=== PATIENT | male | born 1955 | race Caucasian/White ===

== ENCOUNTER → 2017-04-24 15:51 | Outpatient (CLI) | payer MEDICAID, SELFPAY ==
--- NOTE | 2017-04-24 15:58 | RAD_ITS ---
STUDY: X-RAY - RIGHT SHOULDER REASON FOR EXAM: Right shoulder pain for 2 years. TECHNIQUE: 4 view(s) of the shoulder. COMPARISON: None. FINDINGS: Normal glenohumeral articulation. There is acromioclavicular arthrosis. Normal acromion. Normal humeral head and visualized proximal humerus. The soft tissue structures are unremarkable. There is a small granuloma in the right mid lung. RAD/Shoulder min 2 Views IMPRESSION: Acromioclavicular arthrosis. Electronically Signed: London Landeros MD at 12:54 EDT Tel , Service support ,
== END ==
PROVIDERS: Family Provider Family Medicine; PCP Family Medicine; Visit Provider Family Medicine
DX: M75.81 Other shoulder lesions, right shoulder (principal)
CPT/HCPCS: 73030

== ENCOUNTER 2017-05-07 11:50 | Emergency (ER) | payer MEDICAID, SELFPAY ==
[2017-05-07 11:51] VITALS: BP 118/44; PULSE 92; RESP 20; TEMP 36.5; O2SAT 97; BMI 18.6
--- NOTE | 2017-05-07 12:10 | RAD_ITS ---
STUDY: X-RAY CHEST REASON FOR EXAM: Male, 61 years old. Chest pain TECHNIQUE: Single AP portable view of the chest. COMPARISON: None. FINDINGS: The lungs are hyperexpanded. There is a right upper lobe calcified granuloma. There are minimally prominent interstitial markings of the lower lobes. There is no demonstrated pleural abnormality. Normal size heart. Normal mediastinum and ramila. Normal visualized pulmonary arteries. There is atherosclerotic calcification of the aortic arch with tortuosity. Normal visualized thoracic spine. Normal visualized ribs, clavicles, and shoulders. There is no demonstrated abnormality of the visualized soft tissue structures of the upper abdomen. RAD/Chest 1 View (Portable) IMPRESSION: The lungs are hyperexpanded. Electronically Signed: Rae Keita MD at 13:14 EDT , Service support ,
--- NOTE | 2017-05-07 12:10 | EKG12_ITS ---
Test Reason : CP Blood Pressure : / mmHG Vent. Rate : 074 BPM Atrial Rate : 074 BPM P-R Int : 092 ms QRS Dur : 106 ms QT Int : 372 ms P-R-T Axes : 064 078 080 degrees QTc Int : 412 ms Sinus rhythm with short PA Nonspecific T wave abnormality Abnormal ECG Confirmed by RYAN WRAY, NIKO ([id number]), legal editor LINO PRATT ([id number] on 05/09/2017 2:58:18 PM Referred By: BENIGNO Confirmed By:NIKO DAVIS MD
[2017-05-07 12:40] LABS: Absolute Lymphocyte Count 1.25 X10^3/ul (0.83-4.51); Absolute Neutrophil Count 11.1 X10^3/uL (2.0-7.7); Basophil# 0.01 X10^3/uL; Basophil% 0.1 % (0-1); Eosinophil# 0.04 X10^3/uL; Eosinophils% 0.3 % (0-5); Hematocrit 40.5 % (40-54); Hemoglobin 13.8 g/dl (13.0-16.5); Lymphocyte # 1.25 X10^3/ul (4.0); Lymphocyte % 9.8 % (19-41); Mean Corp Hgb Conc 34.1 g/gl (32-36); Mean Corpuscular Hgb 31.4 pg (27.0-32.0); Mean Platelet Vol. 9.5 fl (6.2-12.0); Monocyte# 0.41 X10^3/uL; Monocyte% 3.2 % (0-10); Neutrophil # 11.06 X10^3/uL (2.7-7.7); Neutrophil % 86.2 % (47-70); Platelet Count 278 K/mm3 (150-450); RBC Distribution Width CV 14.7 % (11.6-14.6); RBC Distribution Width SD 47.9 fl (35.1-43.9); White Blood Count 12.8 K/mm3 (4.4-11.0)
[2017-05-07 12:42] LABS: POSITIVE COUNT NO; POSITIVE DIFFERENTIAL NO; POSITIVE MORPHOLOGY NO
[2017-05-07] MEDS: Aspirin 81 MG TAB.CHEW 324 MG PO (12:48)
[2017-05-07 12:49] VITALS: BP 148/95; PULSE 79; RESP 14; O2SAT 98
[2017-05-07] MEDS: LORazepam 1 MG Tablet PO (12:49)
[2017-05-07 12:58] LABS: Anion Gap 6 (5-15); BUN 28 mg/dL (7-18); BUN/Creat Ratio 26.4 RATIO (10-20); Calcium,Total 8.6 mg/dL (8.5-10.1); Chloride 108 mmol/L (98-107); Creatinine, Serum 1.06 mg/dL (0.70-1.30); EST Glomerular Filtration Rate 75 mL/min (>60); Est Glom Filt Rate - Afr Amer 91 mL/min (>60); Estimated Creatinine Clearance 59.49 ml/min; Glucose 116 mg/dL (74-106); Potassium 4.2 mmol/L (3.5-5.1); Sodium Level 137 mmol/L (136-145)
--- NOTE | 2017-05-07 13:39 | ED.VISSUMM ---
- ER Visit Summary Date of Service: 05/07/17 Chief Complaint: Anxiety, chest pain History of Present Illness: The patient is a 61 M presenting with anxiety. Patient states he has been overwhelmed and under a lot of stress. He states he is getting ready to move. He states he is working 6 days per week. He states he is currently on steroids and is finishing up a course of steroids today. This has caused him to be unable to sleep more than 4 hours per night. He denies suicidal ideation. He states that this morning he started having mid chest pain which has been constant for the past 4 hours. He is a smoker. Denies PE/DVT risk factors. Physical Examination: Vitals are stable. Patient is afebrile. Alert no acute distress. HEENT exam is unremarkable. Neck is supple. Lungs are clear and equal bilaterally. Heart is regular rate and rhythm. Abdomen is soft nontender nondistended. Extremities are unremarkable. Skin is warm and dry. No focal neurologic deficit. Remainder of exam is unremarkable. Emergency Department Course and Treatment: Patient was given aspirin. EKG is sinus rate of 74. No acute ischemic changes. Chest x-ray shows hyperexpanded lungs. CBC showed a white count of 12.8. Chemistries show glucose 116, BUN 28. Troponin is negative. He was given Ativan po with improvement. delta troponin was obtained and is negative. Patient is resting comfortably in the emergency department. He has had no further pain. He is advised to follow-up with Dr. Bynum his primary care physician. Advised return to ED if worsening complaints. Disposition: Discharge home Impression: Atypical chest pain This note was generated with [employer] dictation software. It may contain incorrect words, spelling, and punctuation that were not noted in review of the chart prior to signing ED Disposition - Plan for ED Patient: Chief Complaint: Anxiety Instructions: ED Chest Pain Atypical Unkn Cause Referrals: Counseling,Center [GROUP OF PHYSICIANS] - Naif Rojas MD [Primary Care Provider] -
[2017-05-07 14:10] VITALS: BP 151/89; PULSE 71; RESP 17; O2SAT 99
[2017-05-07 16:11] VITALS: BP 134/95; PULSE 70; RESP 18; O2SAT 98
--- NOTE | 2017-05-07 16:43 | ED.DEP ---
ED Disposition - Plan for ED Patient: Chief Complaint: Anxiety Instructions: ED Chest Pain Atypical Unkn Cause Referrals: Naif Rojas MD [Primary Care Provider] - [facility]ing[facility] [GROUP OF PHYSICIANS] -
[2017-05-07 17:16] VITALS: BP 152/73; PULSE 68; RESP 19; O2SAT 98
== END 2017-05-07 17:17 | disposition home or self-care (01) ==
PROVIDERS: Emergency Provider Emergency Medicine; Family Provider Family Medicine; PCP Family Medicine
DX: R07.89 Other chest pain (principal); F32.9 Major depressive disorder, single episode, unspecified; F17.200 Nicotine dependence, unspecified, uncomplicated
CPT/HCPCS: 36415; 71045; 80048; 84484; 85025; 93005; 99284; A4216

== ENCOUNTER → 2017-08-20 13:17 | Outpatient (CLI) | payer MEDICAID, SELFPAY ==
[2017-08-20 15:30] LABS: Absolute Lymphocyte Count 3.04 X10^3/ul (0.83-4.51); Absolute Neutrophil Count 4.1 X10^3/uL (2.0-7.7); Basophil# 0.02 X10^3/uL; Basophil% 0.3 % (0-1); Eosinophil# 0.17 X10^3/uL; Eosinophils% 2.2 % (0-5); Hematocrit 40.6 % (40-54); Hemoglobin 13.5 g/dl (13.0-16.5); Lymphocyte # 3.04 X10^3/ul (4.0); Lymphocyte % 38.7 % (19-41); Mean Corp Hgb Conc 33.3 g/gl (32-36); Mean Corpuscular Hgb 30.7 pg (27.0-32.0); Mean Corpuscular Volume 92.3 fL (80-94); Mean Platelet Vol. 10.2 fl (6.2-12.0); Monocyte# 0.55 X10^3/uL; Neutrophil # 4.07 X10^3/uL (2.7-7.7); Neutrophil % 51.7 % (47-70); Platelet Count 302 K/mm3 (150-450); RBC Distribution Width CV 13.8 % (11.6-14.6); RBC Distribution Width SD 46.8 fl (35.1-43.9); White Blood Count 7.9 K/mm3 (4.4-11.0)
[2017-08-20 15:40] LABS: POSITIVE COUNT NO; POSITIVE DIFFERENTIAL NO; POSITIVE MORPHOLOGY NO
[2017-08-20 15:50] LABS: ALB/GLOB Ratio 1.3 RATIO (0.9-2.4); AST(SGOT) 23 U/L (15-37); Alanine Aminotransfer ALT/SGPT 25 U/L (16-61); Albumin, Serum 4.2 g/dL (3.2-5.0); Alkaline Phosphatase 61 U/L (45-117); Anion Gap 9 (5-15); BUN 20 mg/dL (7-18); BUN/Creat Ratio 16.3 RATIO (10-20); Calcium,Total 9.1 mg/dL (8.5-10.1); Chloride 106 mmol/L (98-107); Creatinine, Serum 1.23 mg/dL (0.70-1.30); EST Glomerular Filtration Rate 63 mL/min (>60); Est Glom Filt Rate - Afr Amer 76 mL/min (>60); Globulin 3.3 g/dL (2.2-4.2); Glucose 83 mg/dL (74-106); PSA,Total - Annual Screen 1.06 ng/mL (0.00-4.00); Protein, Total 7.5 g/dL (6.4-8.2); Sodium Level 139 mmol/L (136-145); T4 Free Direct 1.44 ng/dL (0.76-1.46); Thyroid Stim Hormone (TSH) 2.12 uIU/mL (0.358-3.74)
[2017-08-23 12:08] LABS: HCV Quant. RNA PCR HCV Not Detected IU/mL (.)
== END ==
PROVIDERS: Visit Provider Family Medicine
DX: R63.4 Abnormal weight loss (principal); B18.2 Chronic viral hepatitis C
CPT/HCPCS: 36415; 80053; 84153; 84439; 84443; 85025; 87522; G0103

== ENCOUNTER → 2017-08-22 13:54 | Outpatient (CLI) | payer MEDICAID, SELFPAY ==
--- NOTE | 2017-08-24 19:17 | LEAS_ITS ---
Arterial Study - Arterial Study Arterial Study: This is a 61-year-old male with a history of smoking. The patient presents with right lower extremity ambulatory pain at a distance of 2 blocks, which is relieved by rest. Suspecting the presence of atherosclerotic peripheral arterial occlusive disease, the patient was brought to the noninvasive vascular laboratory at this time for the purpose of bilateral noninvasive lower extremity arterial assessment. Doppler signal assessment was used to evaluate the pulses at ankle level bilaterally. On the right, the posterior tibial and dorsalis pedis pulses were monophasic. On the left, the posterior tibial and dorsalis pedis pulses were biphasic. Segmental limb pressures were obtained bilaterally. The right low thigh pressure was measured at 125 mmHg. The right calf pressure was measured at 125 mmHg. The right ankle pressure, as determined by posterior tibial pulse, was measured at 105 mmHg. The right ankle pressure, as determined by dorsalis pedis pulse, was measured at 104 mmHg. The left low thigh pressure was measured at 154 mmHg. The left calf pressure was measured at 155 mmHg. The left ankle pressure, as determined by posterior tibial pulse, was measured at 140 mmHg. The left ankle pressure, as determined by dorsalis pedis pulse, was measured at 127 mmHg. Pulse-volume recordings were obtained bilaterally and segmentally. Waveform amplitudes appeared to be mildly diminished at all levels in the right lower extremity as compared to the the left. Resting ankle-brachial indices were calculated bilaterally. The resting right ankle-brachial index was calculated to be 0.77. The resting left ankle- brachial index was calculated to be 1.02. Impression: Based upon the findings of this resting noninvasive lower extremity arterial study, there is evidence of mild to moderate arterial occlusive disease in the right lower extremity. Factors which substantiate this impression include monophasic waveforms at ankle level in the right lower extremity. Waveforms at ankle level in the left lower extremity are biphasic. Arterial pressures are diminished at all levels in the right lower extremity as compared to those at similar levels on the left. The resting right ankle- brachial index is low normal. The resting left ankle-brachial index is normal. The presence of monophasic waveforms at ankle level in the right lower extremity is suggestive of an element of arterial occlusive disease. While the resting right ankle-brachial index and segmental pressures are rather unremarkable, in comparison to similar levels in the left lower extremity, they are mildly diminished. It is this finding that suggests the presence of mild to moderate arterial occlusive disease in the right lower extremity. An exercise component to this study might further unmask the presence of an arterial occlusive process in the right lower extremity. Clinical correlation is advised.
== END ==
PROVIDERS: Family Provider Family Medicine; PCP Family Medicine; Visit Provider Family Medicine
DX: I73.9 Peripheral vascular disease, unspecified (principal)
CPT/HCPCS: 93923

== ENCOUNTER → 2017-09-25 08:30 | Outpatient (CLI) | payer MEDICAID, SELFPAY ==
[2017-09-25 09:58] LABS: Cholesterol 118 mg/dL (200); High Density Lipoprotein 51 mg/dL; Triglycerides 61 mg/dL; Very Low Density Lipoprotein 12 mg/dL (5-40)
== END ==
PROVIDERS: Family Provider Family Medicine; PCP Family Medicine; Visit Provider Surgery
DX: I77.1 Stricture of artery (principal)
CPT/HCPCS: 36415; 80061

== ENCOUNTER → 2017-10-01 14:03 | Outpatient (CLI) | payer MEDICAID, SELFPAY | PROVIDERS: Family Provider Family Medicine; PCP Family Medicine; Visit Provider Family Medicine | DX: R63.4 Abnormal weight loss (principal); Z87.891 Personal history of nicotine dependence | CPT/HCPCS: 71046 ==

== ENCOUNTER → 2017-10-02 12:50 | Outpatient (CLI) | payer MEDICAID, SELFPAY | PROVIDERS: Family Provider Family Medicine; PCP Family Medicine; Visit Provider Surgery | DX: R09.89 Other specified symptoms and signs involving the circulatory and respiratory systems (principal) | CPT/HCPCS: 93880 ==

== ENCOUNTER 2017-10-10 09:23 | Day surgery (SDC) | payer MEDICAID, SELFPAY ==
[2017-10-08 11:45] VITALS: BMI 17.2
[2017-10-10 09:39] LABS: Hematocrit 39.5 % (40-54); Hemoglobin 13.5 g/dl (13.0-16.5); Mean Corp Hgb Conc 34.2 g/gl (32-36); Mean Corpuscular Hgb 31.8 pg (27.0-32.0); Mean Corpuscular Volume 93.2 fL (80-94); Mean Platelet Vol. 9.4 fl (6.2-12.0); Platelet Count 305 K/mm3 (150-450); RBC Distribution Width CV 14.3 % (11.6-14.6); RBC Distribution Width SD 47.2 fl (35.1-43.9); Red Blood Count 4.24 M/mm3 (4.6-6.2); White Blood Count 11.9 K/mm3 (4.4-11.0)
[2017-10-10 09:40] LABS: Scan Indicated on CBC? Y/N NO
[2017-10-10 09:52] LABS: Anion Gap 9 (5-15); BUN 23 mg/dL (7-18); BUN/Creat Ratio 16.1 RATIO (10-20); Calcium,Total 8.9 mg/dL (8.5-10.1); Chloride 109 mmol/L (98-107); Creatinine, Serum 1.43 mg/dL (0.70-1.30); EST Glomerular Filtration Rate 53 mL/min (>60); Est Glom Filt Rate - Afr Amer 64 mL/min (>60); Estimated Creatinine Clearance 40.71 ml/min; Glucose 113 mg/dL (74-106); Potassium 4.2 mmol/L (3.5-5.1); Sodium Level 141 mmol/L (136-145)
[2017-10-10 12:26] LABS: ACT Activated Clotting Time 142 sec (74-137)
[2017-10-10 12:26] LABS: ACT Activated Clotting Time 230 sec (74-137)
--- NOTE | 2017-10-10 12:44 | PCM.OPRPT ---
Problem List (1) PAD (peripheral artery disease) Status: Acute Report of Operation Date of Procedure: 10/10/17 Pre-Operative Diagnosis: Severe right lower extremity vascular claudication Post-Operative Diagnosis: Bilateral common iliac and right common femoral significant arterial occlusive disease Surgery/Procedure Performed:: Abdominal pelvic bilateral thigh arteriogram with left 9 x 29 mm Laverne stenting lot #[id number] and right common iliac 9 x 39 mm Laverne stenting lot #[id number]. Minx device left, Perclose device ?2 right Description of Surgical Findings:: Timeout and informed consent was obtained. 61-year-old gent was taken to the special procedures lab. Was placed on the table. Bilateral groins were sterilely prepped and draped. 50 mcg of fentanyl and 2 mg Versed was given intravenous sedation. Initially ultrasound was used to identify the left common femoral artery. 2% lidocaine was instilled under ultrasound guidance. Micropuncture needle inserted. Yo puncture wire inserted. Micropuncture sheath inserted. 035 J-wire inserted. 5 [place] short sheath inserted. Using an angled Glidewire and 5 [place] universal Flush catheter to flush catheter placed in the abdominal aorta at the level of the renals. Using Isovue contrast the rate of 10 cc a second for 15 cc an AP aortogram was obtained. The catheter was withdrawn to the aortic bifurcation and bilateral films were obtained down to the mid thigh level. Having achieved that there was clinically significant disease with irregular disease of vulva the left proximal common iliac high-grade irregular calcific stenosis of the right common iliac and high-grade irregular stenosis of the right common femoral proximal superficial femoral Under ultrasound guidance access was now gained to the right common femoral artery proximal to the extensively irregular calcific disease present. Micropuncture needle inserted micropuncture wire inserted 6 [place] short sheath catheter was inserted. Using a Glidewire I was able to gain access past the area of high-grade disease in the right proximal common iliac. I prior to this exchanged out placed a 7 [place] sheath of the right we exchanged on the left for a 7 Nigerien sheath. The patient received 6000 units of heparin and based upon ACT measurements later on received another 1000 units of heparin intravenously. Initially I attempted to place a 9 x 29 mm Laverne stent on the right. It would not advance and upon withdrawing we dropped the stent into the right external iliac. Utilizing a 4 [place] snare I was able to snare the stent and partially remove the sheath and retrieve the stent and reinsert the 7 [place] sheath. I then was able to place a 6 x 20 mm conquest balloon and perform balloon angioplasty of the severely diseased right proximal common iliac. And so doing I now had an 035 Magic wire up on the right. I had an 035 angled Glidewire on the left. I then placed a 9 mm x 39 mm Laverne stent on the right and a 9 mm x 29 mm Laverne stent on the left. A kissing balloon angioplasty stenting was performed. There is irregular disease in the proximal left common iliac I felt more comfortable providing support there with a stent allowing for the stent to re-create the aortic bifurcation. The stent on the right as it inflated pulled proximally by 2 mm. [place] that that was adequate position. Both balloons were pulled up to 10 destiny of pressure. Retrograde injection done from the left groin now demonstrated dramatic improvement in flow particularly on the right. This point I felt that the further disease involving the right common femoral/proximal superficial femoral to be best treated an open procedure. I inserted a minx device on the left. Sheath was inserted good backflow was obtained the minx device was then deployed by inflating the balloon withdrawing getting good seating and going through the 1 2 and 3 steps with 2 minutes of rest. Good hemostasis was achieved and hemostasis was further achieved with gentle pressure. Because of the proximal stick on the right due to the calcific disease I elected to Perclose the right. I placed a single Perclose but it seemed like there was still some oozing and so I had done that leaving the wire in place I then placed a second Perclose at a slight 30? angle from the first 1. Both Perclose sutures were then secured with excellent result in complete hemostasis. The patient tolerated procedure well he was taken to recovery area in sagittal condition there was excellent femoral pulses bilaterally excellent popliteal pulses bilaterally. Images demonstrate that the patient has patent bilateral renal arteries mild diffuse calcific disease of the abdominal aorta there is high-grade 95% stenosis of the proximal right common iliac with a much more mild amount of irregular calcific disease involving the left proximal common iliac. There is diffuse disease involving bilateral external iliacs though they are patent. The hypogastric chart patent. There is severe irregular 4 cm long occlusive disease involving the right common femoral artery/proximal superficial femoral artery. The left side appears to be more patent. Impression Successfully treated bilateral common iliac disease with high-grade stenosis on the right. Successfully deployed Laverne stents. Good iliofemoral inflow now. I anticipate future open right common femoral/proximal superficial femoral endarterectomy with patch angioplasty. Contrast used 70 cc Kevin Long M.D., F.A.C.S. Type of Anesthesia:: IV Sedation
--- NOTE | 2017-10-10 12:52 | OP.PCM_ITS ---
Problem List (1) PAD (peripheral artery disease) Status: Acute Report of Operation Date of Procedure: 10/10/17 Pre-Operative Diagnosis: Severe right lower extremity vascular claudication Post-Operative Diagnosis: Bilateral common iliac and right common femoral significant arterial occlusive disease Surgery/Procedure Performed:: Abdominal pelvic bilateral thigh arteriogram with left 9 x 29 mm Laverne stenting lot #[id number] and right common iliac 9 x 39 mm Laverne stenting lot #[id number]. Minx device left, Perclose device ?2 right Description of Surgical Findings:: Timeout and informed consent was obtained. 61-year-old gent was taken to the special procedures lab. Was placed on the table. Bilateral groins were sterilely prepped and draped. 50 mcg of fentanyl and 2 mg Versed was given intravenous sedation. Initially ultrasound was used to identify the left common femoral artery. 2% lidocaine was instilled under ultrasound guidance. Micropuncture needle inserted. Yo puncture wire inserted. Micropuncture sheath inserted. 035 J-wire inserted. 5 Citizen [place] short sheath inserted. Using an angled Glidewire and 5 [place] universal Flush catheter to flush catheter placed in the abdominal aorta at the level of the renals. Using Isovue contrast the rate of 10 cc a second for 15 cc an AP aortogram was obtained. The catheter was withdrawn to the aortic bifurcation and bilateral films were obtained down to the mid thigh level. Having achieved that there was clinically significant disease with irregular disease of vulva the left proximal common iliac high-grade irregular calcific stenosis of the right common iliac and high-grade irregular stenosis of the right common femoral proximal superficial femoral Under ultrasound guidance access was now gained to the right common femoral artery proximal to the extensively irregular calcific disease present. Micropuncture needle inserted micropuncture wire inserted 6 [place] short sheath catheter was inserted. Using a Glidewire I was able to gain access past the area of high-grade disease in the right proximal common iliac. I prior to this exchanged out placed a 7 [place] sheath of the right we exchanged on the left for a 7 [place] sheath. The patient received 6000 units of heparin and based upon ACT measurements later on received another 1000 units of heparin intravenously. Initially I attempted to place a 9 x 29 mm Laverne stent on the right. It would not advance and upon withdrawing we dropped the stent into the right external iliac. Utilizing a 4 [place] snare I was able to snare the stent and partially remove the sheath and retrieve the stent and reinsert the 7 [place] sheath. I then was able to place a 6 x 20 mm conquest balloon and perform balloon angioplasty of the severely diseased right proximal common iliac. And so doing I now had an 035 Magic wire up on the right. I had an 035 angled Glidewire on the left. I then placed a 9 mm x 39 mm Laverne stent on the right and a 9 mm x 29 mm Laverne stent on the left. A kissing balloon angioplasty stenting was performed. There is irregular disease in the proximal left common iliac I felt more comfortable providing support there with a stent allowing for the stent to re-create the aortic bifurcation. The stent on the right as it inflated pulled proximally by 2 mm. [place] that that was adequate position. Both balloons were pulled up to 10 destiny of pressure. Retrograde injection done from the left groin now demonstrated dramatic improvement in flow particularly on the right. This point I felt that the further disease involving the right common femoral/proximal superficial femoral to be best treated an open procedure. I inserted a minx device on the left. Sheath was inserted good backflow was obtained the minx device was then deployed by inflating the balloon withdrawing getting good seating and going through the 1 2 and 3 steps with 2 minutes of rest. Good hemostasis was achieved and hemostasis was further achieved with gentle pressure. Because of the proximal stick on the right due to the calcific disease I elected to Perclose the right. I placed a single Perclose but it seemed like there was still some oozing and so I had done that leaving the wire in place I then placed a second Perclose at a slight 30? angle from the first 1. Both Perclose sutures were then secured with excellent result in complete hemostasis. The patient tolerated procedure well he was taken to recovery area in sagittal condition there was excellent femoral pulses bilaterally excellent popliteal pulses bilaterally. Images demonstrate that the patient has patent bilateral renal arteries mild diffuse calcific disease of the abdominal aorta there is high-grade 95% stenosis of the proximal right common iliac with a much more mild amount of irregular calcific disease involving the left proximal common iliac. There is diffuse disease involving bilateral external iliacs though they are patent. The hypogastric chart patent. There is severe irregular 4 cm long occlusive disease involving the right common femoral artery/proximal superficial femoral artery. The left side appears to be more patent. Impression Successfully treated bilateral common iliac disease with high-grade stenosis on the right. Successfully deployed Laverne stents. Good iliofemoral inflow now. I anticipate future open right common femoral/proximal superficial femoral endarterectomy with patch angioplasty. Contrast used 70 cc Kevin Long M.D., F.A.C.S. Type of Anesthesia:: IV Sedation
[2017-10-10 15:41] VITALS: BP 109/67; PULSE 70; RESP 16; TEMP 36.5; O2SAT 97
[2017-10-10 16:40] VITALS: BP 137/73; PULSE 70; RESP 16; O2SAT 97
[2017-10-10 17:30] VITALS: BP 131/69; PULSE 71; RESP 16; TEMP 36.7; O2SAT 97
--- NOTE | 2017-10-10 17:57 | NURSING ---
bed rest complete, walked patient in hallway, both groin sites intact, tolerated well
--- NOTE | 2017-10-10 18:10 | NURSING ---
called dr. larson to confirm pt ambulated without events. dressings to groin CDI. pt voided. VSS, dr. larson gave okay for DC>
== END 2017-10-10 18:12 | disposition home or self-care (01) ==
LOC: CLSP 09:29 → PCU 15:37
PROVIDERS: Family Provider Family Medicine; PCP Family Medicine; Visit Provider Surgery
DX: I70.298 Other atherosclerosis of native arteries of extremities, other extremity (principal); I73.9 Peripheral vascular disease, unspecified; R09.89 Other specified symptoms and signs involving the circulatory and respiratory systems; C44.91 Basal cell carcinoma of skin, unspecified; K21.9 Gastro-esophageal reflux disease without esophagitis; F32.9 Major depressive disorder, single episode, unspecified
CPT/HCPCS: 36200; 36245; 36415; 37221; 75625; 75710; 76937; 80048; 85027; 85347; 99152; 99153; C1760; C1773; C1876; J7030; J7040; Q9967; C1725; C1769; C1894

== ENCOUNTER → 2017-10-17 14:58 | Outpatient (CLI) | payer MEDICAID, SELFPAY ==
[2017-10-17 15:26] LABS: CREATININE FINGERSTICK 1.4 mg/dL (0.70-1.30)
== END ==
PROVIDERS: Family Provider Family Medicine; PCP Family Medicine; Visit Provider Family Medicine
DX: Z01.812 Encounter for preprocedural laboratory examination (principal); R22.1 Localized swelling, mass and lump, neck
CPT/HCPCS: 70491; Q9967

== ENCOUNTER → 2017-10-23 15:35 | Outpatient (CLI) | payer MEDICAID, SELFPAY ==
--- NOTE | 2017-10-23 | LES_PTH ---
PATIENT: LEIGH WALTERS LOC: [facility] U#:[id number] AGE/SX: 69/M ROOM: RE10/23/[address]: Dr. Kevin Long MD : [id number] BED: DIS: SPEC #: [id number] RECD: 10/24/17 14:38 STATUS: OSMAN FILI #: [id number] RACHEL: 10/23/17 00:[address]: Kevin Long DEPT: SURGICAL PATHOLOGY RECD BY: Gustavo Yarbrough ENTERED: 10/24/17 14:38 SP TYPE: Lesion OTHR DR: Dr. Naif Rojas MD Tissues: Skin of upper extremity and shoulder Procedures: Surgery Specimen Level IV HEADER OPERATION: Excision BCCA right shoulder PRE-OP DIAGNOSIS: BCCA right shoulder TISSUE SUBMITTED: Right shoulder tissue, suture moses inferior aspect of ellipse MICROSCOPIC DIAGNOSIS Right arm lesion, excisional biopsy: Basal cell carcinoma, completely excised. SJ:kristal 10/25/17 MICROSCOPIC DESCRIPTION Slides are reviewed. GROSS DESCRIPTION Received in fixative is one container labeled with the patient's name and designated right arm lesion. The specimen consists of a stanley-white skin ellipse measuring 3.5 x 1.1 cm and up to 0.2 cm in thickness. The specimen is oriented by a suture identifying inferior tip. The inferior tip is assigned the 6 o?clock position. The specimen is inked as follows: superior tip ? yellow, inferior tip ? green, lateral margin 3 o?clock ? black and opposite lateral margin 9 o?clock ? blue. The specimen is serially sectioned and submitted entirely in three cassettes as follows: 1 ? superior and inferior tips, 2 ? superior half of the specimen, 3 ? inferior half of the specimen. / SATURNINO:kristal 10/24/17 TC:0 CPT: 17509
== END ==
PROVIDERS: Family Provider Family Medicine; PCP Family Medicine; Visit Provider Surgery
DX: C44.612 Basal cell carcinoma of skin of right upper limb, including shoulder (principal)
CPT/HCPCS: 88305

== ENCOUNTER 2017-12-18 09:22 | Inpatient (IN) | payer MEDICAID, SELFPAY ==
[2017-12-16 10:10] VITALS: BP 132/82; PULSE 73; RESP 16; TEMP 36.8; O2SAT 97; BMI 17.4
--- NOTE | 2017-12-16 10:15 | SDCEKG_ITS ---
Test Reason : Blood Pressure : / mmHG Vent. Rate : 074 BPM Atrial Rate : 074 BPM P-R Int : 118 ms QRS Dur : 102 ms QT Int : 396 ms P-R-T Axes : 082 082 074 degrees QTc Int : 439 ms Normal sinus rhythm with sinus arrhythmia Normal ECG Confirmed by RYAN WRAY, NIKO ([id number]), editor city LINO PRATT ([id number]) on 12/18/2017 1:06:27 PM Referred By: Kevin Long Confirmed By:NIKO DAVIS MD
[2017-12-16 10:38] LABS: Hematocrit 34.5 % (40-54); Hemoglobin 11.6 g/dl (13.0-16.5); Mean Corp Hgb Conc 33.6 g/gl (32-36); Mean Corpuscular Hgb 30.5 pg (27.0-32.0); Mean Corpuscular Volume 90.8 fL (80-94); Mean Platelet Vol. 9.4 fl (6.2-12.0); Platelet Count 318 K/mm3 (150-450); RBC Distribution Width CV 14.2 % (11.6-14.6); RBC Distribution Width SD 45.8 fl (35.1-43.9); White Blood Count 7.6 K/mm3 (4.4-11.0)
[2017-12-16 10:40] LABS: International Normalized Ratio 0.9; Prothrombin Time (Protime)PT. 12.6 SECONDS (11.7-14.9)
[2017-12-16 10:41] LABS: Partial Thromboplast Time 33.1 Seconds (24.1-36.2)
[2017-12-16 10:48] LABS: Scan Indicated on CBC? Y/N NO
[2017-12-16 11:06] LABS: AST(SGOT) 26 U/L (15-37); Alanine Aminotransfer ALT/SGPT 27 U/L (16-61); Albumin, Serum 4.1 g/dL (3.2-5.0); Alkaline Phosphatase 68 U/L (45-117); Anion Gap 6 (5-15); BUN 19 mg/dL (7-18); BUN/Creat Ratio 17.1 RATIO (10-20); Bilirubin, Direct 0.11 mg/dL (0.00-0.30); Calcium,Total 8.8 mg/dL (8.5-10.1); Chloride 104 mmol/L (98-107); Creatinine, Serum 1.11 mg/dL (0.70-1.30); EST Glomerular Filtration Rate 71 mL/min (>60); Est Glom Filt Rate - Afr Amer 86 mL/min (>60); Estimated Creatinine Clearance 53.35 ml/min; Globulin 3.7 g/dL (2.2-4.2); Glucose 89 mg/dL (74-106); Potassium 4.5 mmol/L (3.5-5.1); Protein, Total 7.8 g/dL (6.4-8.2); Sodium Level 134 mmol/L (136-145)
[2017-12-18] VITALS (9 sets, daily range): BP systolic 116–149; BP diastolic 62–90; PULSE 68–86; RESP 14–20; TEMP 36.1–36.8; O2SAT 95–99; BMI 17.4; BMI 18.8
[2017-12-18] MEDS: Bupivacaine Mpf 0.5% 30 ML VIAL (06:53)
[2017-12-18] MEDS: Heparin Injection (Vial) 5,000 UNIT/ML VIAL 5000 UNIT (06:54)
[2017-12-18] MEDS: Cefazolin 2 GM in 0.9% Normal Saline 100 ML IV (07:09)
--- NOTE | 2017-12-18 07:09 | DCINST_ITS ---
<Kevin Long - Last Filed: 12/18/17 07:09> Discharge Diet: Light diet - advance as tolerated - if you have questions about your diet instructions, please talk to you doctor. Discharge Activity: May Not Drive - for 1 week or while taking narcotic pain medicine. May shower in (days): 1 Lifting Restrictions: 10 pounds Call your doctor if your incision/area has: Continuous Slow Oozing, Sudden Increased Bleeding, Increased Pain/ Swelling, Increased Redness, Foul Smelling Discharge Call your doctor if you observe: Fever of 101 or Higher Suture Line Care: Avoid Pulling/Pushing, Avoid Pinching/Bending Additional Dressing/Incision Instructions:: Change or remove dressing in 4 days. Leave steri-strips in place for 1 week. Allergies/Adverse Reactions: Allergies buspirone [From BuSpar] Allergy (Mild, Verified 12/16/17 09:59) shaking, restless legs sucralfate [From Carafate] Allergy (Verified 12/16/17 09:59) Other jaw locked up venom-honey bee [bee venom (honey bee)] Allergy (Verified 12/16/17 09:59) Anaphylaxis Medications to take at Discharge buPROPion SR [Wellbutrin SR (150mg tablets)] 300 mg PO DAILY 05/06/15 ibuprofen 200 mg tablet 600 mg PO TID-QID PRN 09/24/17 paroxetine 40 mg tablet 40 mg PO QDAY 09/24/17 Aspirin 1 tab PO DAILY 10/10/17 Hydrocodone Bitart/Apap 5-325 [[place] 5MG-325MG] 1 tablet PO Q6H PRN PRN 2 Days #6 tablet 12/18/17 The following prescriptions were given: Hydrocodone Bitart/Apap 5-325 [[place] 5MG-325MG] 1 tablet PO Q6H PRN PRN 2 Days #6 tablet PRN Reason: Pain Primary Care Physician: Naif Rojas MD [Primary Care Provider] - Test Results: Test results from this visit will be discussed in further detail at your follow- up appointment, if applicable. Please Follow Up With: Kevin Long MD - [phone] When: Call to make an appointment to be seen in about 10 days. <Bethanie Gilman - Last Filed: 12/19/17 07:47> Test Results: Test results from this visit will be discussed in further detail at your follow- up appointment, if applicable.
--- NOTE | 2017-12-18 07:15 | PLAQ_PTH ---
PATIENT: LEIGH WALTERS LOC: MS2 U#:[id number] AGE/SX: 62/M ROOM: [facility] [place] RE12/18/[address]: Dr. Kevin Long MD : 1955 BED: 1 DIS: 12/19/2017 SPEC #: [id number] RECD: 12/18/17 12:15 STATUS: OSMAN FILI #: [id number] RACHEL: 12/18/17 07:[address]: Kevin Long DEPT: SURGICAL PATHOLOGY RECD BY: Donavan Seay ENTERED: 12/18/17 12:35 SP TYPE: PLAQUE OTHR DR: Dr. Naif Rojas MD Tissues: PLAQUE Procedures: Decalcification bone/plaque Surgery Specimen Level III HEADER OPERATION: Common femoral endarterectomy with patchy angioplasty PRE-OP DIAGNOSIS: Peripheral artery disease TISSUE SUBMITTED: Plaque right leg MICROSCOPIC DIAGNOSIS Plaque of right leg, excision: Severely calcified atheromatous plaque with focal ossification. AM:kristal 12/20/17 GROSS DESCRIPTION Received is one container labeled with the patient's name and not further designated. The specimen consists of a previously opened stanley, indurated tubular piece of tissue measuring 4.5 cm in length and up to 1 cm in diameter. The specimen cuts with gritty sensation. Silk Soaker sections are submitted in one cassette after decalcification. / SJ:kristal 12/18/17 TC:5 CPT: 08170, 54766
[2017-12-18 07:51] LABS: ACT Activated Clotting Time 120 sec (74-137)
[2017-12-18 08:36] LABS: ACT Activated Clotting Time 208 sec (74-137)
[2017-12-18 09:06] LABS: ACT Activated Clotting Time 252 sec (74-137)
--- NOTE | 2017-12-18 09:39 | OP.PCM_ITS ---
Problem List (1) PAD (peripheral artery disease) Status: Acute Report of Operation Date of Procedure: 12/18/17 Pre-Operative Diagnosis: Right lower extremity vascular claudication with extensive right common femoral artery and proximal superficial femoral artery occlusive disease Post-Operative Diagnosis: Same Surgery/Procedure Performed:: Right common femoral artery with extension to the right superficial femoral artery endarterectomy with 1 cm x 10 cm Vascu-Guard bovine patch Description of Surgical Findings:: Timeout informed consent was obtained. 62-year-old gent was taken down from placement table underwent general anesthesia. The right groin thigh was sterilely prepped and draped. He received 2 g of Ancef intravenously preoperatively. An oblique incision was made in the right groin sharp dissection carried down through the subtenons tissue. He had tattoos involving his right leg and there was evidence of tattoo dye within lymphatic drainage. Those lymphatics were avoided. Dissection performed directly down upon the right common femoral artery. Tedious sharp blunt dissection was identified. The patient had a previous percutaneous access with a previous Perclose device. That suture was identified and carefully trimmed I then gained access underneath the inguinal ligament above the area of palpable severe calcific disease. I dissected free the profundofemoral artery and placed a vessel loop. I dissected further down the right superficial femoral artery until more of a normal patent supple vessel could be identified. That was at least 3-4 additional centimeters into the superficial femoral artery. Having achieved that the patient received initial 6000 units of IV heparin then throughout the procedure he received an additional 2000 units of IV heparin based upon ACT measurements. At the conclusion of the procedure the patient received a total of 30 mg of protamine his reversal agent. Having heparinized the patient 9 output a Jacinto clamp on the distal right external iliac peripheral vascular DeBakey on the right profundofemoral artery and a smaller vascular clamp on the right superficial femoral artery. 11 blade was used to made an arteriotomy I tried to extended with Madrid scissors but the dense calcific plaque overlying the orifice of the right superficial femoral artery and profunda femoral artery prohibitive that so that I had to use a 15 blade to directly to cut down through the vessel to identify that plaque and find the true lumen. That arteriotomy was extended up to the inguinal ligament. Using a freer elevator the extensive plaque was carefully removed and feathers were appropriate. Partial inversion performed of the profundofemoral. The plaque tapered at the superficial femoral artery was carefully trimmed and then used I used a couple tacking sutures of 7-0 Prolene. The plaque was trimmed from its proximal extent as well. Having achieved now clean atherectomized I used a Vascu-Guard patch. Reference number of [id number] with a PN number of [id number] Lot number [id number] I shortened the width. Spatulated the ends. I performed a patch angioplasty with a running 6-0 Prolene. Prior to completion there was excellent backflow from the superficial femoral artery profundofemoral artery and good antegrade flow from the external iliac. Nice hemostasis was achieved. It was at this point that the patient received a protamine. I applied Surgicel and held pressure. Once hemostasis was achieved the Surgicel was removed. The wound was closed with 3 different layers of running 3-0 Vicryl in interrupted 3-0 Vicryl. The skin edges were then approximated running septic or 4 Monocryl. The norma- incisional areas anesthetized with 10 cc of 0.5% Marcaine. Steri-Strips Telfa and OpSite dressings applied. Sponge and instrument and needle counts were reported to the surgeon be correct. Blood loss was 200 cc. He tolerated the procedure well was taken to the recovery area in satisfactory condition without apparent complication. He had palpable distal pulses at the completion no apparent complication. Specimens include the plaque. Drains none. Blood loss 200 cc. Kevin Long M.D., F.A.C.S. Type of Anesthesia:: General Anesthesiologist: Amelia Bradford
[2017-12-18] MEDS: Cefazolin 1 GM/50 ML BAG IV ×2 (12:02→17:43)
[2017-12-18] MEDS: buPROPion (SR) 150 MG Tablet.SA 300 MG PO (12:03)
[2017-12-18] MEDS: HYDROcodone Bitartrate/Apap 5/325 Tablet PO ×2 (12:03→21:13)
[2017-12-18] MEDS: Aspirin 81 MG TAB.CHEW PO (12:03)
--- NOTE | 2017-12-18 13:32 | NURSING ---
patient Called for Assistance d/t food stuck. This nurse went back to see pt. Pt color wnl, no distress. Spo2 98-99% on RA. States he was eating peas and salad and it got stuck right here patient points to epigastric area. Denies having trouble swallowing/chewing food at home. Pt wanted to continue to eat. This nurse feels he is safe to do so. Will continue to monitor and pt will notify if any continued problems.
--- NOTE | 2017-12-18 13:45 | CASEMGMT ---
MARTHA LONDONO INITIAL ASSESSMENT D/C PLAN: HOME Face to Face with patient for initial transition planning/care coordination assessment. MARTHA LONDONO introduced self and role at [facility]. Care providers, pharmacy, and demographics verified. PCP: Bob Specialists: Denies Preferred Pharmacy: [facility]. [facility] Retail day of d/c only. Insurance: [employer] Prescription Benefit: Yes Living Will/HPOA: Does not have either. States would like to talk with to fill out paperwork. MARY JANE Jacobo, notified. LNOK: , Aguilar Living Arrangements: Lives with , Aguilar. 3 steps to enter trailer. Denies difficulty navigating stairs. Transportation: Drives. States his sister can provide transportation on day of discharge. DME: Denies using any DME and denies needs. HHC/SNF: No history of either. Denies needs and no needs identified. Pt wishes to return home. CM to follow for any further discharge planning needs that may arise. Merritt MORRIS RN, CM
--- NOTE | 2017-12-18 15:10 | CASEMGMT ---
Social Work Note Face to face with pt and his spouse, Aguilar, to complete advanced care planning. Introduced self and role at [facility]. Educate both to the difference between HCPOA and Living Will. Both express understanding and opt to complete documents this date. Completed documents in approximately 40 minutes. Copy placed on chart. Original and copy provided to pt and spouse. No further needs at this time. SW to continue to follow and assist as needed. Ivonne Chaparro, SCUDDING INSPECTOR, CONTINUITY MANAGER
[2017-12-19 02:51] VITALS: BP 160/80; PULSE 67; RESP 20; TEMP 36.6; O2SAT 97
[2017-12-19 05:18] VITALS: BP 162/70; BP 164/80
--- NOTE | 2017-12-19 06:14 | PCM.PN.SRG ---
Subjective: Minimal HTN. Pt not on any chronic meds Minimal discomfort right groin - Physical Exam Cardiovascular: - - right groin supple, right pop, DP and PT 3+ Vital Signs Temp Pulse Resp BP Pulse Ox 98 F 67 20 H 164/80 H 97 12/19/17 02:51 12/19/17 02:51 12/19/17 02:51 12/19/17 05:18 12/19/17 02:51 Oxygen Flow Rate (L/min) 2 Oxygen Delivery Method Room Air Weight: 131 lb 3.189 oz Body Mass Index (BMI) 18.8 Intake and Output for Last 24 Hours 12/17/17 12/18/17 12/19/17 23:59 23:59 23:59 Intake Total 2042 / 2042 1142 / 1142 Output Total 600 / 600 825 / 825 Balance 1442 / 1442 317 / 317 Laboratory Tests Past 24 Hrs 12/18/17 12/18/17 12/18/17 07:37 08:22 08:49 Activated Clotting Time 120 208 H 252 H Medical Necessity - Tobacco Use Smoking Status: Former smoker Assessment/Plan All Active Problems (Last Reviewed 12/09/17 @ 13:05 by Dalia Oliva) Skin cancer, basal cell (Acute) PAD (peripheral artery disease) (Acute) Excellent results Will discharge on low does ASA
[2017-12-19 09:19] VITALS: BP 145/78; PULSE 63; RESP 18; TEMP 37.1; O2SAT 98
[2017-12-19] MEDS: buPROPion (SR) 150 MG Tablet.SA 300 MG PO (09:21)
[2017-12-19] MEDS: Aspirin 81 MG TAB.CHEW PO (09:21)
[2017-12-19] MEDS: HYDROcodone Bitartrate/Apap 5/325 Tablet PO (09:55)
== END 2017-12-19 10:35 | disposition home or self-care (01) | DRG 181 ==
PROVIDERS: Anesthesiology; Admitting Provider Surgery; Family Provider Family Medicine; PCP Family Medicine; Referring Provider Surgery; Visit Provider Surgery
PROC: 04CK0ZZ Extirpation of Matter from Right Femoral Artery, Open Approach (ICD-10-PCS; principal; 2017-12-18 06:55)
DX: I70.211 Atherosclerosis of native arteries of extremities with intermittent claudication, right leg (principal); Z23 Encounter for immunization; I73.9 Peripheral vascular disease, unspecified; Z87.891 Personal history of nicotine dependence
CPT/HCPCS: 80048; 80076; 85027; 85347; 85610; 85730; 88304; 88311; 93005; 97802; J7040; J7120; 90686; J2405

== ENCOUNTER → 2018-01-27 09:47 | Outpatient (CLI) | payer MEDICAID, SELFPAY ==
--- NOTE | 2018-01-27 09:52 | ART_ITS ---
Reason For Study: F/U PVD Procedure A bilateral lower extremity continuous wave Doppler with analog waveform analysis,segmental pressures,and ankle brachial indexes with exercise. Left Segmental Pressures Left brachial= 134mmHg. Left posterior tibial artery = 171mmHg. Left dorsalis pedis artery = 165mmHg. The left dorsalis pedis waveforms are triphasic. The left posterior tibial artery waveforms are triphasic. Right Segmental Pressures Right brachial= 164mmHg. Right posterior tibial artery = 169mmHg. Right dorsalis pedis artery = 173mmHg. The right dorsalis pedis waveforms are triphasic. The right posterior tibial artery waveforms are triphasic. Indices The right resting ankle brachial index is 1.1. The right post exercise ankle brachial index is .64. The left resting ankle brachial index is 1.0. The left post exercise ankle brachial index is .77. Interpretation Summary Normal bilateral lower extremity resting indices. Markedly abnormal bilateral digital waveforms consistent with distial small vessel disease or severe vasospasm--clinical correlation would be appropriate. Abnormal bilateral lower extremity indices with exercise in the range of vascular claudication with the level of the disease not determined. Ordering Physician: Bethanie Gilman PA-C Referring Physician: Kevin Long Performed By: Romi Meier Zac
--- OUTSIDE RECORDS SUMMARY | 2018-04-30 22:13 | XMS RPT_ITS ---
:1955 Author Organization OHIP Support Name Relationship Address Phone KEARA CHAVES Unavailable [address] + [place] [address] UE Unavailable Unavailable Unavailable KEARA CHAVES Unavailable [address] + [place] [address] UE Unavailable Unavailable Unavailable ZARATE, AGUSTIN Unavailable [address] + [place] [address] ANASTACIO, KEARA Unavailable [address] + [address] [place] [address] UE Unavailable Unavailable Unavailable ZARATE, AGUSTIN Unavailable [address] + [place] [address] ANASTACIO, KEARA Unavailable [address] + [address] [place] [address] UE Unavailable Unavailable Unavailable ZARATE, AGUSTIN Unavailable [address] + [place] [address] ANASTACIO, KEARA Unavailable [address] + [address] [place] [address] UE Unavailable Unavailable Unavailable ZARATE, AGUSTIN Unavailable [address] + [place] [address] ANASTACIO, KEARA Unavailable [address] + [address] [place] [address] UE Unavailable Unavailable Unavailable ZARATE, AGUSTIN Unavailable [address] + [place] [address] ANASTACIO, KEARA Unavailable [address] + [address] [place] [address] UE Unavailable Unavailable Unavailable ZARATE, AGUSTIN Unavailable [address] + [place] [address] KEARA CHAVES Unavailable [address] + [address] [place] [address] UE Unavailable Unavailable Unavailable ZARATE, AGUSTIN Unavailable [address] + [place] [address] KAITLYNN, YUDITH Unavailable [address] + [place] [address] UE Unavailable Unavailable Unavailable ZARATE, AGUSTIN Unavailable [address] + [place] [address] KAITLYNN, YUDITH Unavailable [address] + [place] [address] UE Unavailable Unavailable Unavailable ZARATE, AGUSTIN Unavailable [address] + [place] [address] KAITLYNN, YUDITH Unavailable Unavailable + [place] [address] UE Unavailable Unavailable Unavailable ZARATE, AGUSTIN Unavailable [address] + [place] [address] KAITLYNN, YUDITH Unavailable . + [place] [address] UE Unavailable Unavailable Unavailable ZARATE, AGUSTIN Unavailable [address] + [place] [address] KAITLYNN, YUDITH Unavailable Unavailable + [place] [address] UE Unavailable Unavailable Unavailable ZARATE, AGUSTIN Unavailable [address] + [place] [address] KAITLYNN, YUDITH Unavailable Unavailable + [place] [address] LINNETTE Unavailable [address] + [place] [address] ZARATE, AGUSTIN Unavailable [address] + [place] [address] KAITLYNN, YUDITH Unavailable [address] + [place] [address] UE Unavailable Unavailable Unavailable KAITLYNN, YUDITH Unavailable . + [place] [address] UE Unavailable Unavailable Unavailable KAITLYNN, YUDITH Unavailable Unavailable + UE Unavailable Unavailable Unavailable AGUSTIN ZARATE Unavailable [address] + [place] [address] YUDITH TSAI Unavailable [address] + [place] [address] UE Unavailable Unavailable Unavailable YUDITH TSAI Unavailable Unavailable + UE Unavailable Unavailable Unavailable ANASTACIO HUGELL, KEARA Unavailable [address] + [address] [place] [address] LINNETTE Unavailable [address] + [place] [address] ANASTACIO HUGELL, KEARA Unavailable [address] + [address] [place] [address] LINNETTE Unavailable [address] + [place] [address] ANASTACIO HUGELL, KEARA Unavailable [address] + [address] [place] [address] LINNETTE Unavailable [address] + [place] [address] ANASTACIO HUGELL, KEARA Unavailable [address] [place] [address] LINNETTE Unavailable [address] + [place] [address] ANASTACIO HUGELL, KEARA Unavailable [address] + [address] [place] [address] LINNETTE Unavailable [address] + [place] [address] HUGELL, KEARA Unavailable [address] [place] [address] LINNETTE Unavailable [address] + [place] [address] Care Team Providers Name Role Phone Kevin Long Attending Unavailable Kevin Long Referring Unavailable Naif Rojas Primary Care Unavailable Kevin Long Attending Unavailable Kevin Long Referring Unavailable Naif Rojas Primary Care Unavailable Kevin Long Consulting Unavailable Naif Rojas Attending Unavailable Naif Rojas Primary Care Unavailable Naif Rojas Primary Care Unavailable Lexis Diane Attending Unavailable Naif Rojas Attending Unavailable Naif Rojas Attending Unavailable Naif Rojas Referring Unavailable Bob, Niaf Primary Care Unavailable Bob, Naif Attending Unavailable Bob, Naif Referring Unavailable Bob, Naif Primary Care Unavailable Cebul, Kevin Attending Unavailable Bob, Naif Referring Unavailable Bob, Naif Primary Care Unavailable Cebul, Kevin Attending Unavailable Cebul, Kevin Referring Unavailable Bob, Naif Primary Care Unavailable Cebul, Kevin Attending Unavailable Bob, Naif Primary Care Unavailable Cebul, Kevin Attending Unavailable Bob, Naif Referring Unavailable Bob, Naif Primary Care Unavailable Cebul, Kevin Attending Unavailable Bob, Naif Primary Care Unavailable Bob, Naif Attending Unavailable Bob, Naif Referring Unavailable Bob, Naif Primary Care Unavailable Cebul, Kevin Attending Unavailable Bob, Naif Referring Unavailable Bob, Naif Primary Care Unavailable Cebul, Kevin Attending Unavailable Cebul, Kevin Referring Unavailable Bob, Naif Primary Care Unavailable Nurse, Surgery Attending Unavailable Bob, Naif Referring Unavailable Cebul, Kevin Attending Unavailable Cebul, Kevin Attending Unavailable Cebul, Kevin Referring Unavailable Cebul, Kevin Attending Unavailable Bob, Naif Referring Unavailable Cebul, Kevin Admitting Unavailable Cebul, Kevin Attending Unavailable Cebul, Kevin Referring Unavailable Bob, Naif Primary Care Unavailable Gilman PA-C, Bethanie Attending Unavailable Bob, Naif Referring Unavailable Gilman PA-C, Bethanie Attending Unavailable Bob, Naif Referring Unavailable PushpaBrennen Attending Unavailable Cebul, Kevin Referring Unavailable Gilman PA-C, Bethanie Attending Unavailable Bob, Naif Referring Unavailable Cebul, Kevin Attending Unavailable PROBLEMS PROBLEMS DATE TYPE CONDITION / CODE ATTENDING STATUS SOURCE 01/27/2018 Unknown I73.9 - Peripheral Cebul, Kevin Active [facility] vascular disease, Community unspecified / Hospital I73.9(ICD-10) Repository 12/19/2017 Unknown G89.18 - Other acute Cebul, Kevin Active [facility] postprocedural pain Community / G89.18(ICD-10) Hospital Repository 10/30/2017 Unknown C44.91 - Basal cell Nurse, Surgery Active [facility] carcinoma of skin, Community unspecified / Hospital C44.91(ICD-10) Repository 11/04/2017 Unknown R09.89 - Other Cebul, Kevin Active [facility] specified symptoms Community and signs involving Hospital the circulatory and Repository respiratory systems / R09.89(ICD-10) 10/01/2017 Unknown R63.4 - Abnormal Bob, Naif Active [facility] weight loss / Community R63.4(ICD-10) Hospital Repository 10/01/2017 Unknown Z87.891 - Personal Naif Rojas history of nicotine Community dependence / Hospital Z87.891(ICD-10) Repository 09/24/2017 Unknown I77.1 - Stricture of Kevin Long Active [facility] artery / Community I77.1(ICD-10) Hospital Repository 08/20/2017 Unknown B18.2 - Chronic Naif Rojas viral hepatitis C / Community B18.2(ICD-10) Hospital Repository PROCEDURES PROCEDURES No Procedure Records FoundRESULTS RESULTS ARTERIAL Observed: 01/27/2018 Status: F Source: [place] 4:18 PM [facility] REPOSITORY [facility] Cardiovascular Services [address] [place] [address] Lower Ext Art Exam w/ Exercise 01/27/18 0956 MR#: [id number] Acct: [id number] Name: FRANKI WALTERS Rep #: [id number] : 1955 62 From: Kevin Long MD Attending Dr: Kevin Long MD Status: REG CLI Ordering Dr: Bethanie Gilman PA-C Date: 01/27/18 Location: [facility] Sex: M C Admitted: Reason For Study: F/U PVD Procedure A bilateral lower extremity continuous wave Doppler with analog waveform analysis,segmental pressures,and ankle brachial indexes with exercise. Left Segmental Pressures Left brachial= 134mmHg. Left posterior tibial artery = 171mmHg. Left dorsalis pedis artery = 165mmHg. The left dorsalis pedis waveforms are triphasic. The left posterior tibial artery waveforms are triphasic. Right Segmental Pressures Right brachial= 164mmHg. Right posterior tibial artery = 169mmHg. Right dorsalis pedis artery = 173mmHg. The right dorsalis pedis waveforms are triphasic. The right posterior tibial artery waveforms are triphasic. Indices The right resting ankle brachial index is 1.1. The right post exercise ankle brachial index is .64. The left resting ankle brachial index is 1.0. The left post exercise ankle brachial index is .77. Interpretation Summary Normal bilateral lower extremity resting indices. Markedly abnormal bilateral digital waveforms consistent with distial small vessel disease or severe vasospasm--clinical correlation would be appropriate. Abnormal bilateral lower extremity indices with exercise in the range of vascular claudication with the level of the disease not determined. Ordering Physician: Bethanie Gilman PA-C Referring Physician: Kevin Long Performed By: Romi Meier T 01/27/18 1617 Date Kevin Long MD CC: Bethanie Gilman PA-C; Kevin Long MD; Naif Rojas MD Date Dictated: 01/27/18955 Date Transcribed: 01/27/181616 Certified Nurse Aide: Signed SURGERY VISIT REPORT Observed: 01/06/2018 Status: F Source: [place] 12:20 PM [facility] REPOSITORY [facility] [address] [place] [address]. [address] [place] [address] OFFICE VISIT Date of Service: 01/06/18 MR#: [id number] Acct: [id number] Name: FRANKI WALTERS Rep #: [id number] : 1955 Provider: Bethanie Gilman PA-C Age/Sex: 62/M Location: [facility] Status: Signed Intake Intake Visit Reasons: Incision Check Chief Complaint: recheck groin incision Genetic Scientist Required: No Is patient in pain?: No Allergies buspirone [From BuSpar] Allergy (Mild, Verified 01/06/18 10:29) shaking, restless legs sucralfate [From Carafate] Allergy (Verified 01/06/18 10:29) Other venom-honey bee [bee venom (honey bee)] Allergy (Verified 01/06/18 10:29) Anaphylaxis Medications buPROPion SR [Wellbutrin SR (150mg tablets)] 300 mg PO DAILY 05/06/15 [History Confirmed 01/06/18] ibuprofen 200 mg tablet 600 mg PO TID-QID PRN 09/24/17 [History Confirmed 01/06/18] paroxetine 40 mg tablet 40 mg PO QDAY 09/24/17 [History Confirmed 01/06/18] Aspirin 1 tab PO DAILY 10/10/17 [History Confirmed 01/06/18] Gauze #1 pkg 12/30/17 [Rx Confirmed 01/06/18] Subjective Details: Patient is a 62 y/o male I am following for right lower extremity claudication. Dr. Long performed a right common femoral artery with extension to the right superficial femoral artery endarterectomy with 1 cm x 10 cm Vascu- Guard bovine patch on 12/18/17. Patient tolerated the procedure well. Patient returns today noting clear drainage from the incision. Patient notes approximately 3 days ago he noted swelling with with associated drainage. He notes then the lump would decrease and refill. He notes not lifting anything heavy. He also notes right inner thigh discomfort with burning/tingling sensation which has occurred following the procedure. Patient returns for a follow-up visit. He notes the drainage has completely stopped as of . Patient denies filling of this region since that time. He has not been applying the compressive bandage at this time. He notes inner thigh numbness and occasionally sharp pains. Objective Details: Right groin- incision c/d/i. No erythema or infection noted. Opening is completely closed. Minimal amount of scarring/hematoma noted under the skin at the incision. Non-tender. Femoral pulse- 3+. Assessment AND Plan Problems 1. Hx of endarterectomy Z98.890 Right leg- 12/18/2017 2. PAD (peripheral artery disease) I73.9 Plan - Obtain PVR w exercise testing in 3 weeks - Obtain PVR testing in 6 months and follow-up with Dr. Long after testing - Follow-up as needed Orders Orders: Coding Level of Care Code Global Post Op Diagnoses Hx of endarterectomy Z98.890 PAD (peripheral artery disease) I73.9 01/06/18 1220 <Electronically signed by Bethanie Gilman PA-C> Date Bethanie Gilman PA-C Cosigner Signature: Date (if applicable) CC: Kevin Long MD; Naif Rojas MD SURGERY VISIT REPORT Observed: 12/30/2017 Status: F Source: [place] 4:10 PM [facility] REPOSITORY [facility] [address] [place] [address]. [address] [place] [address] OFFICE VISIT Date of Service: 12/30/17 MR#: [id number] Acct: [id number] Name: FRANKI WALTERS Rep #: [id number] : 1955 Provider: Bethanie Gilman PA-C Age/Sex: 62/M Location: [facility] Status: Signed Intake Intake Visit Reasons: swelling and drainage from incision RC Chief Complaint: recheck groin incision Genetic Scientist Required: No Is patient in pain?: No (Tenderness at incision ) Allergies buspirone [From BuSpar] Allergy (Mild, Verified 12/30/17 14:22) shaking, restless legs sucralfate [From Carafate] Allergy (Verified 12/30/17 14:22) Other venom-honey bee [bee venom (honey bee)] Allergy (Verified 12/30/17 14:22) Anaphylaxis Medications buPROPion SR [Wellbutrin SR (150mg tablets)] 300 mg PO DAILY 05/06/15 [History Confirmed 12/30/17] ibuprofen 200 mg tablet 600 mg PO TID-QID PRN 09/24/17 [History Confirmed 12/30/17] paroxetine 40 mg tablet 40 mg PO QDAY 09/24/17 [History Confirmed 12/30/17] Aspirin 1 tab PO DAILY 10/10/17 [History Confirmed 12/30/17] Gauze #1 pkg 12/30/17 [Rx Confirmed 12/30/17] cephalexin 500 mg capsule 500 mg PO TID 5 Days #15 cap 12/30/17 [Rx Confirmed 12/30/17] Subjective Details: Patient is a 62 y/o male I am following for right lower extremity claudication. Dr. Long performed a right common femoral artery with extension to the right superficial femoral artery endarterectomy with 1 cm x 10 cm Vascu- Guard bovine patch on 12/18/17. Patient tolerated the procedure well. Patient returns today noting clear drainage from the incision. Patient notes approximately 3 days ago he noted swelling with with associated drainage. He notes then the lump would decrease and refill. He notes not lifting anything heavy. He also notes right inner thigh discomfort with burning/tingling sensation which has occured following the procedure. Patient returns for a follow-up visit. He notes the drainage has decreased in amount. Objective Details: Right groin-incision with pinpoint opening in the mid incision. Serous fluid is noted. Compression dressing was applied. Assessment AND Plan Problems 1. PAD (peripheral artery disease) I73.9 2. 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 [place] [address] OFFICE VISIT Date of Service: 12/26/17 MR#: [id number] Acct: [id number] Name: FRANKI WALTERS Rep #: [id number] : 1955 Provider: Bethanie Gilman PA-C Age/Sex: 62/M Location: [facility] Status: Signed Intake Intake Visit Reasons: swelling and drainage from incision Chief Complaint: recheck groin incision Genetic Scientist Required: No Is patient in pain?: No Allergies buspirone [From BuSpar] Allergy (Mild, Verified 12/26/17 10:37) shaking, restless legs sucralfate [From Carafate] Allergy (Verified 12/26/17 10:37) Other venom-honey bee [bee venom (honey bee)] Allergy (Verified 12/26/17 10:37) Anaphylaxis Medications buPROPion SR [Wellbutrin SR (150mg tablets)] 300 mg PO DAILY 05/06/15 [History Confirmed 12/18/17] ibuprofen 200 mg tablet 600 mg PO TID-QID PRN 09/24/17 [History Confirmed 12/18/17] paroxetine 40 mg tablet 40 mg PO QDAY 09/24/17 [History Confirmed 12/18/17] Aspirin 1 tab PO DAILY 10/10/17 [History Confirmed 12/18/17] Subjective Details: Patient is a 62 y/o male I am following for right lower extremity claudication. Dr. Long performed a right common femoral artery with extension to the right superficial femoral artery endarterectomy with 1 cm x 10 cm Vascu- Guard bovine patch on 12/18/17. Patient tolerated the procedure well. Patient returns today noting clear drainage from the incision. Patient notes approximately 3 days ago he noted swelling with with associated drainage. He notes then the lump would decrease and refill. He notes not lifting anything heavy. He also notes right inner thigh discomfort with burning/tingling sensation which has occured following the procedure. Objective Details: Right lower extremity- femoral pulse- 2+. Incision nicely healing with pinpoint opening with clear drainage expressed from this area. Incision was prepped with betadine and 1% lidocaine was used to numb the area. Approximately 1 cc was used to form a wheal. 18 gauge needle was used to aspirate 1 cc of clear fluid. No bleeding or purulent material encountered. Pressure dressing was applied along with duoderm. Patient tolerated the procedure well. Assessment AND Plan Problems 1. PAD (peripheral artery disease) I73.9 2. 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 12/26/17 1313 <Electronically signed by Bethanie Gilman PA-C> Date Bethanie Gilman PA-C Cosigner Signature: Date (if applicable) CC: DISCHARGE INSTRUCTION Observed: 12/19/2017 Status: F Source: [place] 3:10 PM [facility] REPOSITORY [facility] Medical Records Department [address] [place] [address] Instructions for Home/Discharge Instructions 12/18/1709 MR#: [id number] Acct: [id number] Name: FRANKI WALTERS Rep #: [id number] : 1955 62 From: Kevin Long MD PCP: Naif Rojas MD Status: DIS IN <Kevin Long - Last Filed: 12/18/17 07:09> Discharge Diet: Light diet - advance as tolerated - if you have questions about your diet instructions, please talk to you doctor. Discharge Activity: May Not Drive - for 1 week or while taking narcotic pain medicine. May shower in (days): 1 Lifting Restrictions: 10 pounds Call your doctor if your incision/area has: Continuous Slow Oozing, Sudden Increased Bleeding, Increased Pain/ Swelling, Increased Redness, Foul Smelling Discharge Call your doctor if you observe: Fever of 101 or Higher Suture Line Care: Avoid Pulling/Pushing, Avoid Pinching/Bending Additional Dressing/Incision Instructions:: Change or remove dressing in 4 days. Leave steri-strips in place for 1 week. Allergies/Adverse Reactions: Allergies buspirone [From BuSpar] Allergy (Mild, Verified 12/16/17 09:59) shaking, restless legs sucralfate [From Carafate] Allergy (Verified 12/16/17 09:59) Other jaw locked up venom-honey bee [bee venom (honey bee)] Allergy (Verified 12/16/17 09:59) Anaphylaxis Medications to take at Discharge buPROPion SR [Wellbutrin SR (150mg tablets)] 300 mg PO DAILY 05/06/15 ibuprofen 200 mg tablet 600 mg PO TID-QID PRN 09/24/17 paroxetine 40 mg tablet 40 mg PO QDAY 09/24/17 Aspirin 1 tab PO DAILY 10/10/17 Hydrocodone Bitart/Apap 5-325 [[place] 5MG-325MG] 1 tablet PO Q6H PRN PRN 2 Days #6 tablet 12/18/17 The following prescriptions were given: Hydrocodone Bitart/Apap 5-325 [[place] 5MG-325MG] 1 tablet PO Q6H PRN PRN 2 Days #6 tablet PRN Reason: Pain Primary Care Physician: Naif Rojas MD [Primary Care Provider] - Test Results: Test results from this visit will be discussed in further detail at your follow-up appointment, if applicable. Please Follow Up With: Kevni Long MD - [phone] When: Call to make an appointment to be seen in about 10 days. <Bethanie Gilman - Last Filed: 12/19/17 07:47> Test Results: Test results from this visit will be discussed in further detail at your follow-up appointment, if applicable. 12/19/17 1510 <Electronically signed by Kevin Long MD> Date Kevin Long MD CC: Naif Rojas MD OPERATIVE REPORT Observed: 12/18/2017 Status: F Source: [place] 4:59 PM [facility] REPOSITORY [facility] Medical Records Department [address] [place] [address] Operative Report 12/18/17 0933 MR#: [id number] Acct: [id number] Name: FRANKI WALTERS Rep #: [id number] : 1955 62 From: Kevin Long MD PCP: Naif Rojas MD Status: ADM IN Y Location: [facility] KD345-4 Problem List (1) PAD (peripheral artery disease) Status: Acute Report of Operation Date of Procedure: 12/18/17 Pre-Operative Diagnosis: Right lower extremity vascular claudication with extensive right common femoral artery and proximal superficial femoral artery occlusive disease Post-Operative Diagnosis: Same Surgery/Procedure Performed:: Right common femoral artery with extension to the right superficial femoral artery endarterectomy with 1 cm x 10 cm Vascu-Guard bovine patch Description of Surgical Findings:: Timeout informed consent was obtained. 62-year-old gent was taken down from placement table underwent general anesthesia. The right groin thigh was sterilely prepped and draped. He received 2 g of Ancef intravenously preoperatively. An oblique incision was made in the right groin sharp dissection carried down through the subtenons tissue. He had tattoos involving his right leg and there was evidence of tattoo dye within lymphatic drainage. Those lymphatics were avoided. Dissection performed directly down upon the right common femoral artery. Tedious sharp blunt dissection was identified. The patient had a previous percutaneous access with a previous Perclose device. That suture was identified and carefully trimmed I then gained access underneath the inguinal ligament above the area of palpable severe calcific disease. I dissected free the profundofemoral artery and placed a vessel loop. I dissected further down the right superficial femoral artery until more of a normal patent supple vessel could be identified. That was at least 3-4 additional centimeters into the superficial femoral artery. Having achieved that the patient received initial 6000 units of IV heparin then throughout the procedure he received an additional 2000 units of IV heparin based upon ACT measurements. At the conclusion of the procedure the patient received a total of 30 mg of protamine his reversal agent. Having heparinized the patient 9 output a Jacinto clamp on the distal right external iliac peripheral vascular DeBakey on the right profundofemoral artery and a smaller vascular clamp on the right superficial femoral artery. 11 blade was used to made an arteriotomy I tried to extended with [place] scissors but the dense calcific plaque overlying the orifice of the right superficial femoral artery and profunda femoral artery prohibitive that so that I had to use a 15 blade to directly to cut down through the vessel to identify that plaque and find the true lumen. That arteriotomy was extended up to the inguinal ligament. Using a freer elevator the extensive plaque was carefully removed and feathers were appropriate. Partial inversion performed of the profundofemoral. The plaque tapered at the superficial femoral artery was carefully trimmed and then used I used a couple tacking sutures of 7-0 Prolene. The plaque was trimmed from its proximal extent as well. Having achieved now clean atherectomized I used a Vascu-Guard patch. [id number] with a PN number of [id number] Lot number [id number] I shortened the width. Spatulated the ends. I performed a patch angioplasty with a running 6-0 Prolene. Prior to completion there was excellent backflow from the superficial femoral artery profundofemoral artery and good antegrade flow from the external iliac. Nice hemostasis was achieved. It was at this point that the patient received a protamine. I applied Surgicel and held pressure. Once hemostasis was achieved the Surgicel was removed. The wound was closed with 3 different layers of running 3-0 Vicryl in interrupted 3-0 Vicryl. The skin edges were then approximated running septic or 4 Monocryl. The norma-incisional areas anesthetized with 10 cc of 0.5% Marcaine. Steri-Strips Telfa and OpSite dressings applied. Sponge and instrument and needle counts were reported to the surgeon be correct. Blood loss was 200 cc. He tolerated the procedure well was taken to the recovery area in satisfactory condition without apparent complication. He had palpable distal pulses at the completion no apparent complication. Specimens include the plaque. Drains none. Blood loss 200 cc. Kevin Long M.D., F.A.C.S. Type of Anesthesia:: General Anesthesiologist: Amelia Bradford 12/18/17 5887 <Electronically signed by Kevin Long MD> Date Kevin Long MD CC: Kevin Long MD; Naif Rojas MD Signed 12 LEAD ELECTROCARDIOGRAM Observed: 12/18/2017 Status: F Source: [place] 1:06 PM [facility] REPOSITORY [facility] Cardiovascular Services [address] [place] [address] EKG - SDC 12/16/17 1019 MR#: [id number] Acct: [id number] Name: FRANKI WALTERS Rep #: [id number] : 1955 62 From: Brennen Barrow MD Attending Dr: Kevin Long MD Status: ADM ZACHARY Ordering Dr: Kevin Long MD Date: 12/16/17 [place] [facility] [place]: M C Admitted: 12/18/17 Test Reason : Blood Pressure : / mmHG Vent. Rate : 074 BPM Atrial Rate : 074 BPM P-R Int : 118 ms QRS Dur : 102 ms QT Int : 396 ms P-R-T Axes : 082 082 074 degrees QTc Int : 439 ms Normal sinus rhythm with sinus arrhythmia Normal ECG Confirmed by PUSHPA WRAY, BRENNEN ([id number]), business editor LINO PRATT ([id number]) on 12/18/2017 1:06:27 PM Referred By: Kevin Long Confirmed By:BRENNEN BARROW MD 12/18/17 1306 Date Brennen Barrow MD CC: Kevin Long MD; Naif Rojas MD Date Dictated: 12/16/17 1019 Date Transcribed: 12/16/17 1019 Certified Nurse Aide: Signed ACT ACTIVATED CLOTTING Collected: 12/18/2017 Status: F Source: [place] TIME 8:49 AM [facility] REPOSITORY TYPE CODE TESTS RESULT OUT OF RANGE REFERENCE UNITS LAB L9100.0100 74-137 sec High ACTk CLOT 252 TIME Performed By: #### L9100.0100 #### [facility] Point of Care [address] [place] [address] ACT ACTIVATED CLOTTING Collected: 12/18/2017 Status: F Source: [place] TIME 8:22 AM [facility] REPOSITORY TYPE CODE TESTS RESULT OUT OF RANGE REFERENCE UNITS LAB L9100.0100 74-137 sec High ACTk CLOT 208 TIME Performed By: #### L9100.0100 #### [facility] Point of Care [address] [place] [address] ACT ACTIVATED CLOTTING Collected: 12/18/2017 Status: F Source: [place] TIME 7:37 AM [facility] REPOSITORY TYPE CODE TESTS RESULT OUT OF RANGE REFERENCE UNITS LAB L9100.0100 74-137 sec Normal ACTk CLOT 120 TIME Performed By: #### L9100.0100 #### [facility] Point of Care [address] [place] [address] PLAQUE Observed: 12/18/2017 Status: F Source: [place] 7:15 AM [facility] REPOSITORY Patient: FRANKI WALTERS : 1955 (62/M) Acct Num: [id number] Phys: Mercedes WRAY,Kevin Unit Num: [id number] Loc: MS2 DG007-7 Specimen: [id number] Received: 12/18/17 - 1215 Spec Type: PLAQUE TISSUES 1 TISSUES: PLAQUE GROSS DESCRIPTION Received is one container labeled with the patient's name and not further designated. The specimen consists of a previously opened stanley, indurated tubular piece of tissue measuring 4.5 cm in length and up to 1 cm in diameter. The specimen cuts with gritty sensation. Disposal Man sections are submitted in one cassette after decalcification. / SJ:kristal 12/18/17 TC:5 CPT: 92796, 53[address] HEADER OPERATION: Common femoral endarterectomy with patchy angioplasty PRE-OP DIAGNOSIS: Peripheral artery disease TISSUE SUBMITTED: Plaque right leg MICROSCOPIC DIAGNOSIS Plaque of right leg, excision: Severely calcified atheromatous plaque with focal ossification. AM:kristal 12/20/17 Signed Amador Portillo 12/20/17 <signature on file> Performed By: #### PPLAQ #### [facility] [address] [place], [address] CBC-COMPLETE BLOOD CNT Collected: 12/16/2017 Status: F Source: [place] NO DIFF 10:20 AM [facility] REPOSITORY TYPE CODE TESTS RESULT OUT OF RANGE REFERENCE UNITS LAB L100.1000 4.4-11.0 K/mm3 Normal WBC 7.6 LAB L100.1200 4.6-6.2 M/mm3 Low RBC 3.80 LAB L100.1300 13.0-16.5 g/dl Low HGB 11.6 LAB L100.1400 40-54 % Low HCT 34.5 LAB L100.1500 80-94 fL Normal MCV 90.8 LAB L100.1600 27.0-32.0 pg Normal MCH 30.5 LAB L100.1700 32-36 g/gl Normal MCHC 33.6 LAB L100.1810 11.6-14.6 % Normal RDW CV 14.2 LAB L100.1820 35.1-43.9 fl High RDW SD 45.8 LAB L100.1900 150-450 K/mm3 Normal PLT 318 LAB L100.2000 6.2-12.0 fl Normal MPV 9.4 Performed By: #### L100.0500 #### [facility] [address] [place], [address] PROTHROMBIN TIME W/INR Collected: 12/16/2017 Status: F Source: [place] 10:20 AM [facility] REPOSITORY TYPE CODE TESTS RESULT OUT OF RANGE REFERENCE UNITS LAB L300.4150 11.7-14.9 SECONDS Normal PROTIME 12.6 LAB L300.4200 Normal INR 0.9 Performed By: #### L300.3900, L300.4310 #### [facility] [address] [place], [address] PARTIAL THROMBOPLAST Collected: 12/16/2017 Status: F Source: [place] TIME 10:20 AM [facility] REPOSITORY TYPE CODE TESTS RESULT OUT OF RANGE REFERENCE UNITS LAB L300.4310 24.1-36.2 Seconds Normal PTT 33.1 Performed By: #### L300.3900, L300.4310 #### [facility] [address] [place], [address] BASIC METABOLIC Collected: 12/16/2017 Status: F Source: [place] PROFILE (BMP) 10:20 AM [facility] REPOSITORY TYPE CODE TESTS RESULT OUT OF RANGE REFERENCE UNITS LAB L501.0100 74-106 mg/dL Normal GLU 89 Result Comment: Please note revised GLUCOSE reference range effective 2017. LAB L501.1000 7-18 mg/dL High BUN 19 LAB L501.1100 0.70-1.30 mg/dL Normal CREAT,SERUM 1.11 Result Comment: The validity of the calculated GFR AND GFRAA in patients over 70 years has not been determined. Clinical correlation is essential. LAB L501.1110 >60 mL/min Normal EST GFR 71 Result Comment: Non- GFR Calc LAB L501.1115 >60 mL/min Normal EST GFR - AA 86 Result Comment: GFR Calc LAB L501.1255 ml/min Normal Estimated CRCL 53.35 LAB L501.1300 10-20 RATIO Normal BUN/CRE 17.1 LAB L501.2200 8.5-10 mg/dL Normal .1 CA 8.8 LAB L501.5300 136-14 mmol/L Low 5 NA 134 LAB L501.5600 3.5-5. mmol/L Normal 1 K 4.5 LAB L501.5900 98-107 mmol/L Normal CL 104 LAB L501.6100 21.0-3 mmol/L Normal 2.0 CO2 24.0 LAB L501.6200 5-15 Normal GAP 6 Performed By: #### L500.2500, L500.3400 #### [facility] [address] [place], [place], [id number] LIVER PROFILE Collected: 12/16/2017 Status: F Source: [place] 10:20 AM [facility] REPOSITORY TYPE CODE TESTS RESULT OUT OF RANGE REFERENCE UNITS LAB L501.1500 6.4-8.2 g/dL Normal T PROT 7.8 LAB L501.1800 3.2-5.0 g/dL Normal ALB 4.1 LAB L501.1950 2.2-4.2 g/dL Normal GLOB 3.7 LAB L501.4100 15-37 U/L Normal AST 26 LAB L501.4305 45-117 U/L Normal ALK P 68 LAB L501.4405 16-61 U/L Normal ALT 27 LAB L501.4600 0.20-1.00 mg/dL Normal T BILI 0.30 LAB L501.4700 0.00-0.30 mg/dL Normal D BILI 0.11 Performed By: #### L500.2500, L500.3400 #### [facility] [address] [place], [address] SURGERY VISIT REPORT Observed: 12/09/2017 Status: F Source: [place] 1:33 PM [facility] REPOSITORY [facility] [address] [place] [address] OFFICE VISIT Date of Service: 12/09/17 MR#: [id number] Acct: [id number] Name: FRANKI WALTERS Rep #: [id number] : 1955 Provider: Kevin Long MD Age/Sex: 62/M Location: [facility] Status: Signed Intake Vital Signs12/09/17 Height 5 ft 10.5 in 12/09/17 Weight: 123 lb 12/09/17 Body Mass Index (BMI) 17.4 Intake Visit Reasons: Discuss Leg Surgery Chief Complaint: excision right arm lesion Genetic Scientist Required: No Is patient in pain?: No Allergies buspirone [From BuSpar] Allergy (Mild, Verified 12/09/17 13:06) shaking, restless legs sucralfate [From Carafate] Allergy (Verified 12/09/17 13:06) Other venom-honey bee [bee venom (honey bee)] Allergy (Verified 12/09/17 13:06) Anaphylaxis Medications buPROPion SR [Wellbutrin Sr] 300 mg PO DAILY 05/06/15 [History Confirmed 12/09/17] ibuprofen 200 mg tablet 200 mg PO TID-QID PRN 09/24/17 [History Confirmed 12/09/17] paroxetine 40 mg tablet 40 mg PO QDAY 09/24/17 [History Confirmed 12/09/17] Aspirin 1 tab PO QODAY 10/10/17 [History Confirmed 12/09/17] PFSH Medical History Skin cancer, basal cell (Acute) PAD (peripheral artery disease) (Acute) Anxiety (Acute) Basal cell carcinoma (BCC) (Acute) Chronic back pain (Acute) Depression (Acute) GERD (gastroesophageal reflux disease) (Acute) Hemorrhoid (Acute) Osteoarthritis (Acute) PAD (peripheral artery disease) (Acute) Surgical History History of cholecystectomy (Acute 2002) Family History Mother Diabetes Heart disease Hypertension Thyroid disorder Ulcer Sister Asthma Heart disease Hypertension Cancer multiple myeloma Social History Smoking Status: Current every day smoker HPI HPI HPI: FRANKI LOCO, is a 62 M who presents to the office today for surgical follow-up status post bilateral common iliac angioplasty stenting. My previous office notes reflect the following. That is then followed by his operative impression. Since my most recent office visit the patient has stopped his cigarette smoking HPI HPI: FRANKI LOCO, is a 61 M who presents to the office today for surgical consultation regarding a half month history of progressive pain and limitation of walking of his right lower extremity. He is able to climb a flight of stairs but the right leg cramps. He thinks he may have had a stress test in the year 2010. He denies any chest discomfort or palpitations. He has had had hepatitis C in the past but was successfully treated with antivirals. He has been a long-term 3 pack per day cigarette smoker. Claims that he is now down to one half pack to the per day. He thinks that he runs a normal cholesterol level. He is not currently on any anticoagulant. He has not had any chronic duplex imaging. On August [facility] at the [facility] he had PVRs. The right low thigh index is 0.91 on the left low thigh index is 1.12. The right PT and DP Doppler waveforms are monophasic. On the left there are biphasic. As of August 20, 2017 his white count was 7.9 with him with 13.5 and hematocrit 40.6 and blood count 402,000. Urine is 20 and creatinine 1.23. Left liver function tests were normal. His only medications include ibuprofen Wellbutrin. Was not on a low-dose aspirin. He has had additionally past medical history of alcoholism. I am being asked to see this patient for symptomatic right lower any claudication by his primary care physician Dr. Naif Rojas and a written copy of my surgical consult recommendations will be returned to him Sister is Annie Tsai October 10, 2017 Bilateral common iliac laverne stenting Images demonstrate that the patient has patent bilateral renal arteries mild diffuse calcific disease of the abdominal aorta there is high-grade 95% stenosis of the proximal right common iliac with a much more mild amount of irregular calcific disease involving the left proximal common iliac. There is diffuse disease involving bilateral external iliacs though they are patent. The hypogastric chart patent. There is severe irregular 4 cm long occlusive disease involving the right common femoral artery/proximal superficial femoral artery. The left side appears to be more patent. Impression Successfully treated bilateral common iliac disease with high- grade stenosis on the right. Successfully deployed Laverne stents. Good iliofemoral inflow now. I anticipate future open right common femoral/proximal superficial femoral endarterectomy with patch angioplasty. ROS General General: Yes weight change and fatigue; no appetite, colon cancer, breast cancer or weakness Endo Endocrine: No thyroid disease, diabetes mellitus, thyroid cancer, Hair loss, heat intolerance or cold intolerance Musc Musculoskeletal: Yes back problems and arthritis; no rheumatoid arthritis, gout or joint pain Cardio Cardiovascular: No murmur, pacemaker, heart disease, atrial fibrillation, high blood pressure, heart attack, heart stent, palpitations, shortness of breat with exertion or chest pain Psych Psychiatric: Yes depression and anxiety; no hearing voices Resp Respiratory: No shortness of breath, No sleep apnea, Yes cough, No COPD, No asthma, No emphysema, No wheezing Gastro Gastrointestinal: No abdominal pain, No nausea or vomiting, No diarrhea, No constipation, No blood in stool, Yes acid reflux, Yes hemorrhoids, No ulcers, No gallbladder problem, No black,tarry stools Edward Hematologic: No blood thinners, No blood disorders, No bleeding, No anemia, No blood clots Neuro Neurologic: No weakness Exam Const General: cooperative Nutritional Appearance: underweight Orientation: alert, awake [facility] Head: normal to inspection Eyes General: appearance normal, both eyes and all related structures Resp Effort AND Inspection: normal respiratory effort Cardio Rate: regular rate Rhythm: regular rhythm Heart Sounds: no murmurs Other: Bilateral common femoral arteries very proximally at the iliacs are 2-3+. Right popliteal 1+ right DP 0 right PT 1+ Left DP is 1+. Left PT is 2+ GI Palpation: soft, no hepatosplenomegaly Musc Cervical Spine: normal cervical lordosis Skin General: no rashes or lesions noted Neuro General: CN's II-XI intact bilaterally Extrem General: no calf tenderness Psych Affect: normal affect Assessment AND Plan Problems 1. PAD (peripheral artery disease) I73.9 Plan I am recommending to the patient a right common femoral superficial femoral endarterectomy with patch angioplasty. I have discussed the technique, benefits, risks, alternatives. He has had an opportunity to ask and have questions answered. We will regimen proceed at his discretion. Kevin Long M.D., F.A.C.S. Cc: Dr. Naif Rojas Coding Level of Care Code Off vis,est,level 3 Diagnoses PAD (peripheral artery disease) I73.9 12/09/17 1333 <Electronically signed by Kevin Long MD> Date Kevin Long MD Cosigner Signature: Date (if applicable) CC: Naif Rojas MD SURGERY VISIT REPORT Observed: 10/30/2017 Status: F Source: [place] 4:07 PM [facility] REPOSITORY [facility] [address] [place] [address] [address] [place] [address] OFFICE VISIT Date of Service: 10/30/17 MR#: [id number] Acct: [id number] Name: ANASTACIO QUINTANILLAHAILEYFRANKI L Rep #: [id number] : 1955 Provider: Surgery Nurse Age/Sex: 62/M Location: [facility] Status: Signed Intake Intake Visit Reasons: S/R right shoulder BCCA and post APLL Chief Complaint: excision right arm lesion Genetic Scientist Required: No Is patient in pain?: No Allergies buspirone [From BuSpar] Allergy (Mild, Verified 10/30/17 14:56) shaking, restless legs sucralfate [From Carafate] Allergy (Verified 10/30/17 14:56) Other venom-honey bee [bee venom (honey bee)] Allergy (Verified 10/30/17 14:56) Anaphylaxis Medications buPROPion SR [Wellbutrin Sr] 300 mg PO DAILY 05/06/15 [History Confirmed 10/08/17] ibuprofen 200 mg tablet 200 mg PO TID-QID PRN 09/24/17 [History Confirmed 10/08/17] paroxetine 40 mg tablet 40 mg PO QDAY 09/24/17 [History Confirmed 10/08/17] Aspirin 1 tablet PO QODAY 10/10/17 [History Confirmed 10/10/17] amoxicillin 875 mg-potassium clavulanate 125 mg tablet 1 tab PO BID #10 tab 10/19/17 [Rx Confirmed 10/19/17] Subjective Details: Patient presents for suture removal. Dr. Long performed an excision of the right upper extremity skin lesion on 10/23/17. Patient tolerated the procedure well. Pathology demonstrated basal cell carcinoma, completely excised. Patient denies incisional pain/discomfort. Objective Details: Right upper extremity- incision c/d/i. Slight erythema. No drainage ore infection noted. Sutures entirely removed. Steri-strips placed. Assessment AND Plan Problems 1. Skin cancer, basal cell C44.91 Plan - Follow-up as needed Coding Level of Care Code Global Post Op Diagnoses Skin cancer, basal cell C44.91 10/30/17 1607 <Electronically signed by Bethanie Gilman PA-C> Date Bethanie Gilman PA-C Cosigner Signature: Date (if applicable) CC: SURGERY VISIT REPORT Observed: 10/25/2017 Status: F Source: [place] 5:19 PM [facility] REPOSITORY [facility] [address] [place], [place] [address] [place] [address] OFFICE VISIT Date of Service: 10/23/17 MR#: [id number] Acct: [id number] Name: FRANKI WALTERS Rep #: [id number] : 1955 Provider: Kevin Long MD Age/Sex: 62/M Location: [facility] [place] [facility] Status: Signed with Addenda ADDENDUM by Kevin Long MD on 10/25/17 at 1719 Addendum entered and electronically signed by Kevin Long MD 10/25/17 17:19: Billing [id number] Marilyn Intake Chief Complaint: excision right arm lesion Allergies buspirone [From BuSpar] Allergy (Mild, Verified 10/23/17 13:40) shaking, restless legs sucralfate [From Carafate] Allergy (Verified 10/23/17 13:40) Other venom-honey bee [bee venom (honey bee)] Allergy (Verified 10/23/17 13:40) Anaphylaxis Medications buPROPion SR [Wellbutrin Sr] 300 mg PO DAILY 05/06/15 [History Confirmed 10/08/17] ibuprofen 200 mg tablet 200 mg PO TID-QID PRN 09/24/17 [History Confirmed 10/08/17] paroxetine 40 mg tablet 40 mg PO QDAY 09/24/17 [History Confirmed 10/08/17] Aspirin 1 tablet PO QODAY 10/10/17 [History Confirmed 10/10/17] amoxicillin 875 mg-potassium clavulanate 125 mg tablet 1 tab PO BID #10 tab 10/19/17 [Rx Confirmed 10/19/17] Assessment AND Plan Problems 1. Skin cancer, basal cell C44.91 Plan - Kevin Long MD The patient will return to the office and states time for wound inspection and suture removal. Final pathology is pending. The patient will return to the office in approximately 4-6 weeks time. He will need to discuss time off with his employer. I propose for him a future right common femoral and superficial endarterectomy with patch angioplasty. It is of note that the patient has 2 Perclose sutures in the proximal right common femoral artery. I would like to allow time for resolution from the percutaneous process. Cc: Dr. Naif Long M.D., F.A.C.S. Orders Orders: 10/25/17 5608 <Electronically signed by Kevin Long MD> Date Kevin Long MD cc: * Signed Intake Intake Visit Reasons: right shoulder BCCA and post APLL Chief Complaint: excision right arm lesion Genetic Scientist Required: No Is patient in pain?: No Allergies buspirone [From BuSpar] Allergy (Mild, Verified 10/23/17 13:40) shaking, restless legs sucralfate [From Carafate] Allergy (Verified 10/23/17 13:40) Other venom-honey bee [bee venom (honey bee)] Allergy (Verified 10/23/17 13:40) Anaphylaxis Medications buPROPion SR [Wellbutrin Sr] 300 mg PO DAILY 05/06/15 [History Confirmed 10/08/17] ibuprofen 200 mg tablet 200 mg PO TID-QID PRN 09/24/17 [History Confirmed 10/08/17] paroxetine 40 mg tablet 40 mg PO QDAY 09/24/17 [History Confirmed 10/08/17] Aspirin 1 tablet PO QODAY 10/10/17 [History Confirmed 10/10/17] amoxicillin 875 mg-potassium clavulanate 125 mg tablet 1 tab PO BID #10 tab 10/19/17 [Rx Confirmed 10/19/17] PFSH Medical History Skin cancer, basal cell (Acute) PAD (peripheral artery disease) (Acute) Anxiety (Acute) Basal cell carcinoma (BCC) (Acute) Chronic back pain (Acute) Depression (Acute) GERD (gastroesophageal reflux disease) (Acute) Hemorrhoid (Acute) Osteoarthritis (Acute) PAD (peripheral artery disease) (Acute) Surgical History History of cholecystectomy (Acute 2002) Family History Mother Diabetes Heart disease Hypertension Thyroid disorder Ulcer Sister Asthma Heart disease Hypertension Cancer multiple myeloma Social History Smoking Status: Current every day smoker HPI HPI HPI: FRANKI LOCO, is a 62 M who presents to the office today for surgical complete excision of a suspected BCC right upper arm. The patient states he had a shave biopsy done in [place] but despite diligent attempts for us to track pathology reports we have been unable to. He presents today to have the right upper arm lesion completely elliptically excised The patient is also status post abdominal pelvic proximal lower extremity arteriogram that I perform for him on October 10, 2017. The patient had severe right lower extremity vascular claudication. Bilateral common iliac angioplasty and stenting was performed with a 9 x 39 mm Laverne stent on the right and a 9 x 29 mm Laverne stent on the left. 2 Perclose devices were placed on the right and Minx ice on the left. Patient states that he extruded the meets device on the left had some tenderness. He was placed on a 5 day course of oral antibiotics. The tenderness drainage and erythema have resolved. He feels that it is an allergic response to the closure device and he may be right. At the time of his arteriograms she was found to have high- grade stenosis of the right common iliac and a kissing balloon technique with bilateral common iliac stents were performed. The patient also has high-grade irregular calcific disease the right common femoral extending into the superficial femoral. He will need to have that treated and an open approach with a right common femoral/superficial femoral endarterectomy with patch angioplasty in a delayed fashion. Office Procedures Excision of Skin Provider Documentation Provider Documentation: Wide excision right upper arm suspected BCC Timeout and informed consent was obtained. 62-year-old gentleman was taken to procedure room placed on the table. The right upper arm was sterilely prepped and draped. 1% lidocaine mixed 50-50 with 0.5% Marcaine was used as local anesthetic. Total 10 cc was used. A vertical elliptical 3 x 1.3 cm ellipse was performed. A suture was placed in the inferior aspect of the ellipse. The subdermal tissues were approximated with interrupted 3-0 chromic. The skin edges were approximated with a running simple mattress suture of 4-0 nylon. Telfa OpSite dressing applied. The patient was given activity wound care instructions. He will return to the office in 6 days time for wound inspection and suture removal. The specimen was placed directly in formalin for analysis. As noted above the patient also will return in the future for repeat groin inspection from his puncture sites Kevin Long M.D., F.A.C.S. Procedure Time Out Time Out Informed consent given: Yes Consent signed: Yes Time out checklist: patient, procedure, site marked/identified, positioning of patient, supplies available, allergies confirmed, team agrees on procedure Time out staff in room: Yes Time out verified: Yes Time out date: 10/23/17 Time out time: 13:42 Assessment AND Plan Problems 1. Skin cancer, basal cell C44.91 Plan The patient will return to the office and states time for wound inspection and suture removal. Final pathology is pending. The patient will return to the office in approximately 4-6 weeks time. He will need to discuss time off with his employer. I propose for him a future right common femoral and superficial endarterectomy with patch angioplasty. It is of note that the patient has 2 Perclose sutures in the proximal right common femoral artery. I would like to allow time for resolution from the percutaneous process. Cc: Dr. Naif Long M.D., F.A.C.S. Orders Orders: Coding Diagnoses Skin cancer, basal cell C44.91 10/24/17 1728 <Electronically signed by Kevin Long MD> Date Kevin Long MD Cosigner Signature: Date (if applicable) CC: LESION (CHOOSE SITE) Observed: 2017 Status: F Source: [place] 12:00 AM [facility] REPOSITORY Patient: FRANKI WALTERS : 1955 (62/M) Acct Num: [id number] Phys: Mercedes WRAY,Kevin Unit Num: [id number] Loc: LABSPEC Specimen: [id number] Received: 10/24/17 - 1438 Spec Type: Lesion TISSUES TISSUES: Skin of upper extremity and shoulder GROSS DESCRIPTION Received in fixative is one container labeled with the patient's name and designated right arm lesion. The specimen consists of a stanley-white skin ellipse measuring 3.5 x 1.1 cm and up to 0.2 cm in thickness. The specimen is oriented by a suture identifying inferior tip. The inferior tip is assigned the 6 o clock position. The specimen is inked as follows: superior tip yellow, inferior tip green, lateral margin 3 o clock black and opposite lateral margin 9 o clock blue. The specimen is serially sectioned and submitted entirely in three cassettes as follows: 1 superior and inferior tips, 2 superior half of the specimen, 3 inferior half of the specimen. / SJ:kristal 10/24 TC:0 CPT: 35790 HEADER OPERATION: Excision BCCA right shoulder PRE-OP DIAGNOSIS: BCCA right shoulder TISSUE SUBMITTED: Right shoulder tissue, suture moses inferior aspect of ellipse MICROSCOPIC DESCRIPTION Slides are reviewed. MICROSCOPIC DIAGNOSIS Right arm lesion, excisional biopsy: Basal cell carcinoma, completely excised. SJ:kristal 10/25/17 Signed Marito Wray 10/25/17 <signature on file> Performed By: #### PLES #### [facility] [address] [place], [address] CREATININE FINGERSTICK Collected: 10/17/2017 Status: F Source: [place] 3:14 PM [facility] REPOSITORY TYPE CODE TESTS RESULT OUT OF REFERENCE UNITS RANGE LAB L9100.0210 0.70-1.30 mg/dL High CREATININE WB 1.4 Performed By: #### L9100.0200 #### [facility] Point of Care [address] [place] [address] SOFT TISSUE NECK WITH Observed: 10/17/2017 Status: F Source: [place] CONTRAST 3:01 PM [facility] REPOSITORY [facility] Imaging Services [address] [facility] [place] [address] Soft Tissue Neck WITH Contrast MR#: [id number] Acct: [id number] Name: FRANKI WALTERS Rep #: [id number] : 1955 M 61 From: Alex Asif DO PCP: Naif Rojas MD Status: REG CLI Study: Soft Tissue Neck WITH Contrast Date of Exam: 10/17/17 Exam# [id number] Ordering Dr: Naif Rojas MD STUDY: CT SOFT TISSUE NECK WITH CONTRAST REASON FOR EXAM: Male, 61 years old. Left supraclavicular mass. RADIATION DOSAGE (If Supplied By Facility): CTDIvol = ( 11.41 ) mGy, DLP = ( 376.16 ) mGycm TECHNIQUE: The patient was scanned in a multi-detector CT scanner. High resolution transaxial imaging was performed following intravenous administration of 75 ml of Isovue 300 contrast material. Sagittal and coronal images were reconstructed. Individualized dose optimization techniques were used for this CT. COMPARISON: None. FINDINGS: Normal bilateral parotid glands. Normal bilateral electro plater spaces. Normal bilateral parapharyngeal spaces. Normal bilateral carotid spaces. Normal bilateral sublingual and submandibular glands and spaces. Normal visualized nasopharynx. Normal retropharyngeal space. Normal perivertebral space. Normal visualized bilateral faucial tonsils. The visualized tongue, tongue base and oropharynx are normal. The visualized cervical lymph nodes (levels I-) are within normal size limits, and maintain normal morphology. There is no demonstrated solid or cystic mass lesion. There is no abnormal contrast enhancement. Normal epiglottis, bilateral vallecula and hypopharynx. The pre-epiglottic and paraglottic adipose spaces are normal. Normal visualized bilateral piriform sinuses, aryepiglottic folds, vocal cords, and arytenoid-cricoid articulations. Normal subglottic trachea. Normal bilateral lobes of the thyroid gland. Normal visualized pulmonary apices. Normal visualized paranasal sinuses. There are degenerative changes cervical spine with slight retrolisthesis of C3 on C4. There is no evidence of mass in the left supraclavicular area. The soft tissues are symmetric when compared to those on the right. CT/Soft Tissue Neck WITH Contrast IMPRESSION: Normal enhanced CT examination of the soft tissues of the neck. Electronically Signed: Alex LauonDO at 16:15 EDT Tel [phone], Service support , CC: Naif Rojas MD Certified Nurse Aide: Signed OPERATIVE REPORT Observed: 10/11/2017 Status: F Source: [place] 6:49 AM [facility] REPOSITORY [facility] Medical Records Department [address] [place] [address] Operative Report 10/10/17 1244 MR#: [id number] Acct: [id number] Name: FRANKI WALTESR Rep #: [id number] : 1955 61 From: Kevin Long MD PCP: Naif Rojas MD Status: DEP [facility] Location: [facility] Problem List (1) PAD (peripheral artery disease) Status: Acute Report of Operation Date of Procedure: 10/10/17 Pre-Operative Diagnosis: Severe right lower extremity vascular claudication Post-Operative Diagnosis: Bilateral common iliac and right common femoral significant arterial occlusive disease Surgery/Procedure Performed:: Abdominal pelvic bilateral thigh arteriogram with left 9 x 29 mm Laverne stenting lot #[id number] and right common iliac 9 x 39 mm Laverne stenting lot #[id number]. Minx device left, Perclose device 2 right Description of Surgical Findings:: Timeout and informed consent was obtained. 61-year-old gent was taken to the special procedures lab. Was placed on the table. Bilateral groins were sterilely prepped and draped. 50 mcg of fentanyl and 2 mg Versed was given intravenous sedation. Initially ultrasound was used to identify the left common femoral artery. 2% lidocaine was instilled under ultrasound guidance. Micropuncture needle inserted. Yo puncture wire inserted. Micropuncture sheath inserted. 035 J-wire inserted. 5 Andorran short sheath inserted. Using an angled Glidewire and 5 Andorran universal Flush catheter to flush catheter placed in the abdominal aorta at the level of the renals. Using Isovue contrast the rate of 10 cc a second for 15 cc an AP aortogram was obtained. The catheter was withdrawn to the aortic bifurcation and bilateral films were obtained down to the mid thigh level. Having achieved that there was clinically significant disease with irregular disease of vulva the left proximal common iliac high-grade irregular calcific stenosis of the right common iliac and high-grade irregular stenosis of the right common femoral proximal superficial femoral Under ultrasound guidance access was now gained to the right common femoral artery proximal to the extensively irregular calcific disease present. Micropuncture needle inserted micropuncture wire inserted 6 Andorran short sheath catheter was inserted. Using a Glidewire I was able to gain access past the area of high-grade disease in the right proximal common iliac. I prior to this exchanged out placed a 7 Andorran sheath of the right we exchanged on the left for a 7 Andorran sheath. The patient received 6000 units of heparin and based upon ACT measurements later on received another 1000 units of heparin intravenously. Initially I attempted to place a 9 x 29 mm Laverne stent on the right. It would not advance and upon withdrawing we dropped the stent into the right external iliac. Utilizing a 4 Andorran snare I was able to snare the stent and partially remove the sheath and retrieve the stent and reinsert the 7 Andorran sheath. I then was able to place a 6 x 20 mm conquest balloon and perform balloon angioplasty of the severely diseased right proximal common iliac. And so doing I now had an 035 Magic wire up on the right. I had an 035 angled Glidewire on the left. I then placed a 9 mm x 39 mm Laverne stent on the right and a 9 mm x 29 mm Laverne stent on the left. A kissing balloon angioplasty stenting was performed. There is irregular disease in the proximal left common iliac I felt more comfortable providing support there with a stent allowing for the stent to re-create the aortic bifurcation. The stent on the right as it inflated pulled proximally by 2 mm. [place] that that was adequate position. Both balloons were pulled up to 10 destiny of pressure. Retrograde injection done from the left groin now demonstrated dramatic improvement in flow particularly on the right. This point I felt that the further disease involving the right common femoral/proximal superficial femoral to be best treated an open procedure. I inserted a minx device on the left. Sheath was inserted good backflow was obtained the minx device was then deployed by inflating the balloon withdrawing getting good seating and going through the 1 2 and 3 steps with 2 minutes of rest. Good hemostasis was achieved and hemostasis was further achieved with gentle pressure. Because of the proximal stick on the right due to the calcific disease I elected to Perclose the right. I placed a single Perclose but it seemed like there was still some oozing and so I had done that leaving the wire in place I then placed a second Perclose at a slight 30 angle from the first 1. Both Perclose sutures were then secured with excellent result in complete hemostasis. The patient tolerated procedure well he was taken to recovery area in sagittal condition there was excellent femoral pulses bilaterally excellent popliteal pulses bilaterally. Images demonstrate that the patient has patent bilateral renal arteries mild diffuse calcific disease of the abdominal aorta there is high-grade 95% stenosis of the proximal right common iliac with a much more mild amount of irregular calcific disease involving the left proximal common iliac. There is diffuse disease involving bilateral external iliacs though they are patent. The hypogastric chart patent. There is severe irregular 4 cm long occlusive disease involving the right common femoral artery/proximal superficial femoral artery. The left side appears to be more patent. Impression Successfully treated bilateral common iliac disease with high- grade stenosis on the right. Successfully deployed Laverne stents. Good iliofemoral inflow now. I anticipate future open right common femoral/proximal superficial femoral endarterectomy with patch angioplasty. Contrast used 70 cc Kevin Long M.D., F.A.C.S. Type of Anesthesia:: IV Sedation 10/11/17 0649 <Electronically signed by Kevin Long MD> Date Kevin Long MD CC: Kevin Long MD; Naif Rojas MD Signed ACT ACTIVATED CLOTTING Collected: 10/10/2017 Status: F Source: [place] TIME 11:42 AM [facility] REPOSITORY TYPE CODE TESTS RESULT OUT OF RANGE REFERENCE UNITS LAB L9100.0100 74-137 sec High ACTk CLOT 230 TIME Performed By: #### L9100.0100 #### [facility] Laboratory Point of Care [address] [place] [address] ACT ACTIVATED CLOTTING Collected: 10/10/2017 Status: F Source: [place] TIME 11:16 AM [facility] REPOSITORY TYPE CODE TESTS RESULT OUT OF RANGE REFERENCE UNITS LAB L9100.0100 74-137 sec High ACTk CLOT 142 TIME Performed By: #### L9100.0100 #### [facility] Point of Care [address] [place], [place] [address] CBC-COMPLETE BLOOD CNT Collected: 10/10/2017 Status: F Source: [place] NO DIFF 9:29 AM [facility] REPOSITORY TYPE CODE TESTS RESULT OUT OF RANGE REFERENCE UNITS LAB L100.1000 4.4-11.0 K/mm3 High WBC 11.9 LAB L100.1200 4.6-6.2 M/mm3 Low RBC 4.24 LAB L100.1300 13.0-16.5 g/dl Normal HGB 13.5 LAB L100.1400 40-54 % Low HCT 39.5 LAB L100.1500 80-94 fL Normal MCV 93.2 LAB L100.1600 27.0-32.0 pg Normal MCH 31.8 LAB L100.1700 32-36 g/gl Normal MCHC 34.2 LAB L100.1810 11.6-14.6 % Normal RDW CV 14.3 LAB L100.1820 35.1-43.9 fl High RDW SD 47.2 LAB L100.1900 150-450 K/mm3 Normal PLT 305 LAB L100.2000 6.2-12.0 fl Normal MPV 9.4 Performed By: #### L100.0500 #### [facility] [address] [place], [place], [address] BASIC METABOLIC Collected: 10/10/2017 Status: F Source: [place] PROFILE (BMP) 9:29 AM [facility] REPOSITORY TYPE CODE TESTS RESULT OUT OF RANGE REFERENCE UNITS LAB L501.0100 74-106 mg/dL High GLU 113 Result Comment: Fasting Glucose result from 100 to 125 mg/dL suggests IMPAIRED HOMEOSTASIS per A.D.A. criteria. Please note revised GLUCOSE reference range effective 2017. LAB L501.1000 7-18 mg/dL High BUN 23 LAB L501.1100 0.70-1.30 mg/dL High CREAT,SERUM 1.43 Result Comment: The validity of the calculated GFR AND GFRAA in patients over 70 years has not been determined. Clinical correlation is essential. LAB L501.1110 >60 mL/min Low EST GFR 53 Result Comment: Non- GFR Calc LAB L501.1115 >60 mL/min Normal EST GFR - AA 64 Result Comment: GFR Calc LAB L501.1255 ml/min Normal Estimated CRCL 40.71 LAB L501.1300 10-20 RATIO Normal BUN/CRE 16.1 LAB L501.2200 8.5-10 mg/dL Normal .1 CA 8.9 LAB L501.5300 136-14 mmol/L Normal 5 NA 141 LAB L501.5600 3.5-5. mmol/L Normal 1 K 4.2 LAB L501.5900 98-107 mmol/L High CL 109 LAB L501.6100 21.0-3 mmol/L Normal 2.0 CO2 23.0 LAB L501.6200 5-15 Normal GAP 9 Performed By: #### L500.2500 #### [facility] [address] [place], [address] CAROTID DUPLEX Observed: 10/02/2017 Status: F Source: [place] ULTRASOUND 5:15 PM [facility] REPOSITORY [facility] Cardiovascular Services [address] [place] [address] Carotid Duplex Ultrasound 10/02/17 1255 MR#: [id number] Acct: [id number] Name: FRANKI WALTERS Rep #: [id number] : 1955 61 From: Kevin Long MD Attending Dr: Kevin Long MD Status: REG CLI Ordering Dr: Kevin Long MD Date: 10/02/17 Location: [facility] Sex: M C Admitted: Reason For Study: Carotid bruit Rt. Velocities/BP Lt. Velocities/BP Prox CCA 104.0/17.6 cm/sec. Prox CCA 98.3/15.3 cm/sec. Mid CCA 107.0/18.8 cm/sec. Mid CCA 103.0/18.5 cm/sec. Dist CCA 75.6/18.2 cm/sec. Dist CCA 69.8/17.6 cm/sec. Prox ICA 71.5/20.5 cm/sec. Prox ICA 59.8/17.6 cm/sec. Mid ICA 100.0/27.6 cm/sec. Mid ICA 86.2/27.6 cm/sec. Dist ICA 84.3/22.8 cm/sec. Dist ICA 80.9/23.5 cm/sec. Rt. ICA/CCA = .93. Lt. ICA/CCA = .84. Prox ECA 113.0/17.0 cm/sec. Prox ECA 94.4/17.6 cm/sec. Rt. Vert. 56.8/16.6 cm/sec. Lt. Vert. 55.2/18.8 cm/sec. Right Extracranial There is homogeneous, smooth atherosclerotic plaque noted in the right common carotid artery. There is heterogeneous, irregular atherosclerotic plaque noted in the right internal carotid artery. There is no significant atherosclerotic plaque noted in the right external carotid artery. Antegrade flow is noted in the right vertebral artery. Left Extracranial There is homogeneous, smooth atherosclerotic plaque noted in the left common carotid artery. There is heterogeneous, irregular atherosclerotic plaque noted in the left internal carotid artery. There is intimal thickening but no significant atherosclerotic plaque noted in the left external carotid artery. Antegrade flow is noted in the left vertebral artery. Procedure Carotid Duplex 05948. Exam performed in department. Interpretation Summary Smooth plague right common carotid Minimal calcific plague proximal right internal carotid with <50% stenosis. Minimal calcific plague within the proximal left internal carotid with <50% stenosis Normal flow bilateral external carotids Patent and antegrade vertebrals bilaterally Ordering Physician: Kevin oLng Performed By: Romi Meier RVT 10/02/17 5903 Date Kevin Long MD CC: Kevin Long MD; Naif Rojas MD Date Dictated: 10/02/17 1255 Date Transcribed: 10/02/17 1715 Certified Nurse Aide: Signed CHEST PA AND LATERAL Observed: 10/01/2017 Status: F Source: [place] 2:11 PM [facility] REPOSITORY [facility] Imaging Services [address] [place] [address] Chest PA and Lateral MR#: [id number] Acct: [id number] Name: FRANKI WALTERS Rep #: [id number] : 1955 M 61 From: Alf Samuels MD PCP: Naif Rojas MD Status: REG CLI Study: Chest PA and Lateral Date of Exam: 10/01/17 Exam# [id number] Ordering Dr: Naif Rojas MD STUDY: X-RAY CHEST REASON FOR EXAM: Male, 61 years old. Questionable chest mass. Left neck adenopathy. TECHNIQUE: PA and lateral views of the chest. COMPARISON: 05/07/2017. FINDINGS: There is hyperinflation of the lungs consistent with chronic obstructive lung disease (COPD). No focal infiltrate is seen. There is no demonstrated pleural abnormality. Normal size heart. Normal mediastinum and ramila. Normal visualized pulmonary arteries. There is atherosclerotic calcification of the aortic arch. There are mild degenerative changes of the visualized thoracic spine. Normal visualized ribs, clavicles, and shoulders. There is no demonstrated abnormality of the visualized soft tissue structures of the upper abdomen. RAD/Chest PA and Lateral IMPRESSION: Hyperinflation. No active pulmonary disease. Electronically Signed: Alf Samuels MD at 3:26 EDT Tel , Service support , CC: Naif Rojas MD Certified Nurse Aide: Signed LIPID PROFILE Collected: 09/25/2017 Status: F Source: [place] 8:35 AM [facility] REPOSITORY TYPE CODE TESTS RESULT OUT OF RANGE REFERENCE UNITS LAB L501.4900 200 mg/dL Normal CHOL 118 Result Comment: <200 mg/dL Desirable 200-240 mg/dL Borderline >240 mg/dL High Risk LAB L501.5000 mg/dL Normal TRIG 61 Result Comment: The drugs N-Acetylcysteine and Metamizole may falsely depress this assay. Serum Triglycerides Reference Interval Normal <150 mg/dL Borderline high 150 - 199 mg/dL High 200 - 499 mg/dL Very High > or = 500 mg/dL LAB L501.6400 mg/dL Normal HDL 51 Result Comment: The drugs N-Acetylcysteine and Metamizole may falsely depress this assay. Reference Range HDL <40 mg/dL Low HDL Cholesterol HDL >or= 60 mg/dL High HDL Cholesterol LAB L501.6500 0-130 mg/dL Normal LDL 55 LAB L501.6600 5-40 mg/dL Normal VLDL 12 Performed By: #### L500.4100 #### [facility] [address] [place], [address] SURGERY VISIT REPORT Observed: 09/24/2017 Status: F Source: [place] 5:50 PM [facility] REPOSITORY [facility] [address] [place] [address] OFFICE VISIT Date of Service: 09/24/17 MR#: [id number] Acct: [id number] Name: FRANKI WALTERS Rep #: [id number] : 1955 Provider: Kevin Long MD Age/Sex: 61/M Location: [facility] Status: Signed Intake Vital Signs09/24/17 Height 5 ft 10 in 09/24/17 Weight: 120 lb 1 oz 09/24/17 Body Mass Index (BMI) 17.2 09/24/17 Blood Pressure 149/82 Intake Visit Reasons: PAD Chief Complaint: PAD, right leg pain Genetic Scientist Required: No Is patient in pain?: No Allergies buspirone [From BuSpar] Allergy (Mild, Verified 09/24/17 13:26) shaking, restless legs sucralfate [From Carafate] Allergy (Verified 05/07/17 11:53) Other venom-honey bee [bee venom (honey bee)] Allergy (Verified 05/07/17 11:53) Anaphylaxis Medications buPROPion SR [Wellbutrin Sr] 300 mg PO DAILY 05/06/15 [History Confirmed 09/24/17] ibuprofen 200 mg tablet 200 mg PO TID-QID PRN 09/24/17 [History Confirmed 09/24/17] paroxetine 40 mg tablet 40 mg PO QDAY 09/24/17 [History Confirmed 09/24/17] PFSH Medical History Skin cancer, basal cell (Acute) PAD (peripheral artery disease) (Acute) Anxiety (Acute) Basal cell carcinoma (BCC) (Acute) Chronic back pain (Acute) Depression (Acute) GERD (gastroesophageal reflux disease) (Acute) Hemorrhoid (Acute) Osteoarthritis (Acute) PAD (peripheral artery disease) (Acute) Surgical History History of cholecystectomy (Acute 2002) Family History Mother Diabetes Heart disease Hypertension Thyroid disorder Ulcer Sister Asthma Heart disease Hypertension Cancer multiple myeloma Social History Smoking Status: Current every day smoker HPI HPI HPI: FRANKI LOCO, is a 61 M who presents to the office today for surgical consultation regarding a half month history of progressive pain and limitation of walking of his right lower extremity. He is able to climb a flight of stairs but the right leg cramps. He thinks he may have had a stress test in the year 2010. He denies any chest discomfort or palpitations. He has had had hepatitis C in the past but was successfully treated with antivirals. He has been a long-term 3 pack per day cigarette smoker. Claims that he is now down to one half pack to the per day. He thinks that he runs a normal cholesterol level. He is not currently on any anticoagulant. He has not had any chronic duplex imaging. On August 24 at the [facility] he had PVRs. The right low thigh index is 0.91 on the left low thigh index is 1.12. The right PT and DP Doppler waveforms are monophasic. On the left there are biphasic. As of August 20, 2017 his white count was 7.9 with him with 13.5 and hematocrit 40.6 and blood count 402,000. Urine is 20 and creatinine 1.23. Left liver function tests were normal. His only medications include ibuprofen Wellbutrin. Was not on a low-dose aspirin. He has had additionally past medical history of alcoholism. I am being asked to see this patient for symptomatic right lower any claudication by his primary care physician Dr. Naif Rojas and a written copy of my surgical consult recommendations will be returned to him Sister is Annie WETZEL General General: Yes weight change and fatigue; no appetite, colon cancer, breast cancer or weakness Endo Endocrine: No thyroid disease, diabetes mellitus, thyroid cancer, Hair loss, heat intolerance or cold intolerance Musc Musculoskeletal: Yes back problems and arthritis; no rheumatoid arthritis, gout or joint pain Cardio Cardiovascular: No murmur, pacemaker, heart disease, atrial fibrillation, high blood pressure, heart attack, heart stent, palpitations, shortness of breat with exertion or chest pain Psych Psychiatric: Yes depression and anxiety; no hearing voices Resp Respiratory: No shortness of breath, No sleep apnea, Yes cough, No COPD, No asthma, No emphysema, No wheezing Gastro Gastrointestinal: No abdominal pain, No nausea or vomiting, No diarrhea, No constipation, No blood in stool, Yes acid reflux, Yes hemorrhoids, No ulcers, No gallbladder problem, No black,tarry stools Edward Hematologic: No blood thinners, No blood disorders, No bleeding, No anemia, No blood clots Neuro Neurologic: No weakness Exam Const General: cooperative, frail appearing Nutritional Appearance: thin, underweight Orientation: alert, awake, oriented x3 HENMT Head: other (Gaunt) Eyes General: appearance normal, both eyes and all related structures Neck Neck: normal visual inspection Chest Other: Increased anterior posterior diameter Resp Effort AND Inspection: normal respiratory effort Auscultation: clear to auscultation bilaterally Cardio Rate: regular rate Rhythm: regular rhythm Heart Sounds: no murmurs Other: 3+ carotids bilaterally. Soft 1/6 bruit on the right. Left femoral 2+. Right femoral 1+. Left popliteal 3+. Right popliteal 1+. Bilateral DPs 1+. Left PT is 2+. Right PT is 1+ GI Inspection: normal to inspection Palpation: soft, no hepatosplenomegaly Other: Not pulsatile or expansile Skin Other: Diffuse areas of ecchymosis bilateral forearms Neuro Cranial Nerves: CN's II-XI intact bilaterally Extrem Other: Venous filling is noted bilateral lower extremities. Dependent rubor is noted bilaterally. Hypertrophic nails with hygiene issue Proximal right upper arm has a 1.3 cm long centrally ulcerated skin lesion consistent with the biopsy of BCC Psych Affect: normal affect Assessment AND Plan Problems 1. PAD (peripheral artery disease) I73.9 2. Right carotid bruit R09.89 3. Skin cancer, basal cell C44.91 Plan 1. I recommend that we obtain records from Dr. Naif Rojas. Would like to assess this with the patient has had a lipid panel. If not we should pursue that. 2. I recommend that we obtain carotid duplex imaging because of the soft bruit on the right. 3. I recommend that he initiate a low-dose 81 mg aspirin daily 4. I recommend that he immediately cease his tobacco use. He plans to follow-up with Dr. Naif Rojas regarding assistive aids 5. I recommend office excision of his biopsy-proven basal cell carcinoma right upper arm. The patient is aware that this would distort his previous tattoo. He states that that is not an issue for him. 6. I recommend a abdominal pelvic bilateral extremity arteriogram. I would anticipate a retrograde left common femoral artery approach however bilateral approach may be required. I have vigorously encourage the patient to stress fluid hydration prior to that procedure. He has had an opportunity to ask and have questions answered. We will schedule and proceed at his discretion. I very much appreciate the kind opportunity of assisting with his surgical care Cc: Dr. Naif Long M.D., F.A.C.S. Orders Orders: Coding Level of Care Code Comprehensive,moderate Diagnoses PAD (peripheral artery disease) I73.9 Right carotid bruit R09.89 Skin cancer, basal cell C44.91 09/24/17 1750 <Electronically signed by Kevin Long MD> Date Kevin Long MD Cosigner Signature: Date (if applicable) CC: Naif Rojas MD LOWER EXT ARTERIAL Observed: 08/24/2017 Status: F Source: [place] STUDY 7:17 PM [facility] REPOSITORY [facility] Cardiovascular Services [address] [place] [address] 08/24/17 190 MR#: [id number] Acct: [id number] Name: FRANKI WALTERS Rep #: [id number] : 1955 61 From: Kit Garrison MD Attending Dr: Naif Rojas MD Status: REG CLI Ordering Dr: Date: 08/24/17 Location: [facility] Sex: M C Admitted: Arterial Study - Arterial Study Arterial Study: This is a 61-year-old male with a history of smoking. The patient presents with right lower extremity ambulatory pain at a distance of 2 blocks, which is relieved by rest. Suspecting the presence of atherosclerotic peripheral arterial occlusive disease, the patient was brought to the noninvasive vascular laboratory at this time for the purpose of bilateral noninvasive lower extremity arterial assessment. Doppler signal assessment was used to evaluate the pulses at ankle level bilaterally. On the right, the posterior tibial and dorsalis pedis pulses were monophasic. On the left, the posterior tibial and dorsalis pedis pulses were biphasic. Segmental limb pressures were obtained bilaterally. The right low thigh pressure was measured at 125 mmHg. The right calf pressure was measured at 125 mmHg. The right ankle pressure, as determined by posterior tibial pulse, was measured at 105 mmHg. The right ankle pressure, as determined by dorsalis pedis pulse, was measured at 104 mmHg. The left low thigh pressure was measured at 154 mmHg. The left calf pressure was measured at 155 mmHg. The left ankle pressure, as determined by posterior tibial pulse, was measured at 140 mmHg. The left ankle pressure, as determined by dorsalis pedis pulse, was measured at 127 mmHg. Pulse-volume recordings were obtained bilaterally and segmentally. Waveform amplitudes appeared to be mildly diminished at all levels in the right lower extremity as compared to the the left. Resting ankle-brachial indices were calculated bilaterally. The resting right ankle-brachial index was calculated to be 0.77. The resting left ankle-brachial index was calculated to be 1.02. Impression: Based upon the findings of this resting noninvasive lower extremity arterial study, there is evidence of mild to moderate arterial occlusive disease in the right lower extremity. Factors which substantiate this impression include monophasic waveforms at ankle level in the right lower extremity. Waveforms at ankle level in the left lower extremity are biphasic. Arterial pressures are diminished at all levels in the right lower extremity as compared to those at similar levels on the left. The resting right ankle- brachial index is low normal. The resting left ankle-brachial index is normal. The presence of monophasic waveforms at ankle level in the right lower extremity is suggestive of an element of arterial occlusive disease. While the resting right ankle-brachial index and segmental pressures are rather unremarkable, in comparison to similar levels in the left lower extremity, they are mildly diminished. It is this finding that suggests the presence of mild to moderate arterial occlusive disease in the right lower extremity. An exercise component to this study might further unmask the presence of an arterial occlusive process in the right lower extremity. Clinical correlation is advised. 08/24/171916 <Electronically signed by Kit Garrison MD> Date Kit Garrison MD CC: Naif Rojas; Naif Rojas MD Date Dictated: 08/24/171905 Date Transcribed: 08/24/171905 Certified Nurse Aide: LAS Signed CBC W/DIFF, AUTOMATED Collected: 08/20/2017 Status: F Source: [place] 1:19 PM [facility] REPOSITORY TYPE CODE TESTS RESULT OUT OF RANGE REFERENCE UNITS LAB L100.1000 4.4-11.0 K/mm3 Normal WBC 7.9 LAB L100.1200 4.6-6.2 M/mm3 Low RBC 4.40 LAB L100.1300 13.0-16.5 g/dl Normal HGB 13.5 LAB L100.1400 40-54 % Normal HCT 40.6 LAB L100.1500 80-94 fL Normal MCV 92.3 LAB L100.1600 27.0-32.0 pg Normal MCH 30.7 LAB L100.1700 32-36 g/gl Normal MCHC 33.3 LAB L100.1810 11.6-14.6 % Normal RDW CV 13.8 LAB L100.1820 35.1-43.9 fl High RDW SD 46.8 LAB L100.1900 150-450 K/mm3 Normal PLT 302 LAB L100.2000 6.2-12.0 fl Normal MPV 10.2 LAB L100.2100 47-70 % Normal NEUT% 51.7 LAB L100.2200 19-41 % Normal LY% 38.7 LAB L100.2300 0-10 % Normal MONO% 7.0 LAB L100.2400 0-5 % Normal EO% 2.2 LAB L100.2500 0-1 % Normal BASO% 0.3 LAB L100.2550 0.0-0.9 % Normal IM GRAN % 0.100 Result Comment: IG% - Immature Granulocytes (promyelocytes, myelocytes and metamyelocytes) > 1% indicates that a LEFT SHIFT is Present. LAB L100.2620 2.0-7.7 X10 3/uL Normal Absolute Neut 4.1 LAB L100.2720 0.83-4.51 X10 3/ul Normal Absolute Lymph 3.04 Performed By: #### L100.0100 #### [facility] Laboratory [address] [place], [address] COMPREHENSIVE METABOLIC Collected: 08/20/2017 Status: F Source: [place] [facility] 1:19 PM [facility] REPOSITORY TYPE CODE TESTS RESULT OUT OF RANGE REFERENCE UNITS LAB L501.0100 74-106 mg/dL Normal GLU 83 Result Comment: Please note revised GLUCOSE reference range effective 2017. LAB L501.1000 7-18 mg/dL High BUN 20 LAB L501.1100 0.70-1.30 mg/dL Normal CREAT,SERUM 1.23 Result Comment: The validity of the calculated GFR AND GFRAA in patients over 70 years has not been determined. Clinical correlation is essential. LAB L501.1110 >60 mL/min Normal EST GFR 63 Result Comment: Non- GFR Calc LAB L501.1115 >60 mL/min Normal EST GFR - AA 76 Result Comment: GFR Calc LAB L501.1300 10-20 RATIO Normal BUN/CRE 16.3 LAB L501.1500 6.4-8.2 g/dL T Normal PROT 7.5 LAB L501.1800 3.2-5.0 g/dL Normal ALB 4.2 LAB L501.1950 2.2-4.2 g/dL Normal GLOB 3.3 LAB L501.2000 0.9-2.4 RATIO Normal A/G 1.3 LAB L501.2200 8.5-10.1 mg/dL CA Normal 9.1 LAB L501.4100 15-37 U/L Normal AST 23 LAB L501.4305 45-117 U/L Normal ALK P 61 LAB L501.4405 16-61 U/L Normal ALT 25 LAB L501.4600 0.20-1.00 mg/dL T Normal BILI 0.50 LAB L501.5300 136-145 mmol/L NA Normal 139 LAB L501.5600 3.5-5.1 mmol/L K Normal 4.0 LAB L501.5900 98-107 mmol/L CL Normal 106 LAB L501.6100 21.0-32.0 mmol/L Normal CO2 24.0 LAB L501.6200 5-15 Normal GAP 9 Performed By: #### L500.4050, L501.9520, L501.9910, L506.0400 #### [facility] [address] [place], [place], [address] THYROID STIM HORMONE Collected: 08/20/2017 Status: F Source: [place] (TSH) 1:19 PM [facility] REPOSITORY TYPE CODE TESTS RESULT OUT OF RANGE REFERENCE UNITS LAB L501.9520 0.358-3.74 uIU/mL Normal TSH 2.12 Performed By: #### L500.4050, L501.9520, L501.9910, L506.0400 #### [facility] [address] [place], [place], [address] PSA,TOTAL - ANNUAL Collected: 08/20/2017 Status: F Source: [place] SCREEN 1:19 PM [facility] REPOSITORY TYPE CODE TESTS RESULT OUT OF RANGE REFERENCE UNITS LAB L501.9910 0.00-4.00 ng/mL Normal PSA,TOT 1.06 SCREEN Result Comment: This test was performed using the TPSA assay method for the [employer] chemistry system. Values obtained with different assay methods cannot be used interchangably. When changing PSA assays in the course of monitoring a patient, additional sequential testing should be carried out to confirm baseline values. Performed By: #### L500.4050, L501.9520, L501.9910, L506.0400 #### [facility] [address] [place], [place], [address] T4 FREE DIRECT Collected: 08/20/2017 Status: F Source: [place] 1:19 PM [facility] REPOSITORY TYPE CODE TESTS RESULT OUT OF RANGE REFERENCE UNITS LAB L506.0400 0.76-1.46 ng/dL Normal T4 FREE 1.44 DIRECT Performed By: #### L500.4050, L501.9520, L501.9910, L506.0400 #### [facility] [address] [place], [address] HEPATITIS C,RNA PCR Collected: 08/20/2017 Status: F Source: [place] VIRAL LOAD 1:19 PM [facility] REPOSITORY TYPE CODE TESTS RESULT OUT OF RANGE REFERENCE UNITS LAB L7000.7100 . IU/mL HCV Normal HCV Not Detected QT PCR LAB L7000.7350 . Test Normal HCV not performed log 10 LAB L7000.7500 . Normal TEST Comment INFO: Result Comment: The quantitative range of this assay is 15 IU/mL to 100 million IU/mL. Performed at: - [facility] [id number] Team Manager: Eliud Barragan MD, Phone: [phone] Performed By: #### L7000.7000 #### [facility] (refer to report for specific site) refer to report for address and phone number 12 LEAD ELECTROCARDIOGRAM Observed: 05/09/2017 Status: F Source: [place] 2:58 PM [facility] REPOSITORY [facility] Cardiovascular Services [address] [place] [address] 12 Lead EKG 05/07/17 1215 MR#: [id number] Acct: [id number] Name: ANASTACIO LOCOFRANKI Chen Rep #: [id number] : 1955 61 From: Brennen Barrow MD Attending Dr: Status: DEP ER Ordering Dr: Lexis Diane MD Date: 05/07/17 Location: ED Sex: M C Admitted: Test Reason : CP Blood Pressure : / mmHG Vent. Rate : 074 BPM Atrial Rate : 074 BPM P-R Int : 092 ms QRS Dur : 106 ms QT Int : 372 ms P-R-T Axes : 064 078 080 degrees QTc Int : 412 ms Sinus rhythm with short FL Nonspecific T wave abnormality Abnormal ECG Confirmed by BRENNEN BARROW MD ([id number]), business editor LINO PRATT ([id number]) on 05/09/2017 2:58:18 PM Referred By: BENIGNO Confirmed By:BRENNEN BARROW MD 05/09/17 1458 Date Brennen Barrow MD CC: Lexis Diane MD; Naif Rojas Signed EMERGENCY DEPARTMENT Observed: 05/07/2017 Status: F Source: [place] SUMMARY 4:55 PM [facility] REPOSITORY [facility] Medical Records Department [address] [place] [address] Emergency Department Summary 05/07/17 1339 MR#: [id number] Acct: [id number] Name: FRANKI WALTERS Rep #: [id number] : 1955 61 From: Lexis Diane MD PCP: Naif Rojas Status: REG ER - ER Visit Summary Date of Service: 05/07/17 Chief Complaint: Anxiety, chest pain History of Present Illness: The patient is a 61 M presenting with anxiety. Patient states he has been overwhelmed and under a lot of stress. He states he is getting ready to move. He states he is working 6 days per week. He states he is currently on steroids and is finishing up a course of steroids today. This has caused him to be unable to sleep more than 4 hours per night. He denies suicidal ideation. He states that this morning he started having mid chest pain which has been constant for the past 4 hours. He is a smoker. Denies PE/DVT risk factors. Physical Examination: Vitals are stable. Patient is afebrile. Alert no acute distress. HEENT exam is unremarkable. Neck is supple. Lungs are clear and equal bilaterally. Heart is regular rate and rhythm. Abdomen is soft nontender nondistended. Extremities are unremarkable. Skin is warm and dry. No focal neurologic deficit. Remainder of exam is unremarkable. Emergency Department Course and Treatment: Patient was given aspirin. EKG is sinus rate of 74. No acute ischemic changes. Chest x-ray shows hyperexpanded lungs. CBC showed a white count of 12.8. Chemistries show glucose 116, BUN 28. Troponin is negative. He was given Ativan po with improvement. delta troponin was obtained and is negative. Patient is resting comfortably in the emergency department. He has had no further pain. He is advised to follow-up with Dr. Bynum his primary care physician. Advised return to ED if worsening complaints. Disposition: Discharge home Impression: Atypical chest pain This note was generated with [employer] dictation software. It may contain incorrect words, spelling, and punctuation that were not noted in review of the chart prior to signing ED Disposition - Plan for ED Patient: Chief Complaint: Anxiety Instructions: ED Chest Pain Atypical Unkn Cause Referrals: Counseling,Center [GROUP OF PHYSICIANS] - Naif Rojas MD [Primary Care Provider] - What to do if you have Problems For any increased pain, shortness of breath, bleeding, nausea or vomiting, chest pain, or any unexpected problems, contact your Primary Care Provider. Call [facility] ([phone]) or report to the closest Emergency Room. Call 911 if necessary. 05/07/17 1655 <Electronically signed by Lexis Diane MD> Date Lexis Diane MD Cosigner Signature (If Indicated): Date CC: Naif Rojas DISCHARGE INSTRUCTION Observed: 05/07/2017 Status: F Source: [place] 4:43 PM [facility] REPOSITORY [facility] Medical Records Department [address] [place] [address] Discharge Instruction 05/07/17 1643 MR#: [id number] Acct: [id number] Name: ANASTACIO LOCOFRANKI Chen Rep #: [id number] : 1955 61 From: Lexis Diane MD PCP: Naif Rojas Status: REG ER ED Disposition - Plan for ED Patient: Chief Complaint: Anxiety Instructions: ED Chest Pain Atypical Unkn Cause Referrals: Naif Rojas MD [Primary Care Provider] - [facility]ing[facility] [GROUP OF PHYSICIANS] - What to do if you have Problems For any increased pain, shortness of breath, bleeding, nausea or vomiting, chest pain, or any unexpected problems, contact your Primary Care Provider. Call [facility] ([phone]) or report to the closest Emergency Room. Call 911 if necessary. 05/07/17 1643 <Electronically signed by Lexis Diane MD> Date Lexis Diane MD Cosigner Signature (If Indicated): Date CC: Naif Rojas TROPONIN-I Collected: 05/07/2017 Status: F Source: [place] 3:35 PM [facility] REPOSITORY Order Comment: 'TROP' Serial specimen #1, #2, #3, or #4: 2 TYPE CODE TESTS RESULT OUT OF RANGE REFERENCE UNITS LAB L501.4010 <0.06 ng/mL Normal < 0.02 TROPONIN-I Result Comment: TROPONIN-I EXPECTED VALUES <0.05 NEGATIVE 0.06 - 0.59 AT RISK OF [place] > OR = 0.60 SUGGEST [place] Performed By: #### L501.4010 #### [facility] [address] [place], [address] CBC W/DIFF, AUTOMATED Collected: 05/07/2017 Status: F Source: [place] 12:30 PM [facility] REPOSITORY TYPE CODE TESTS RESULT OUT OF RANGE REFERENCE UNITS LAB L100.1000 4.4-11.0 K/mm3 High WBC 12.8 LAB L100.1200 4.6-6.2 M/mm3 Low RBC 4.40 LAB L100.1300 13.0-16.5 g/dl Normal HGB 13.8 LAB L100.1400 40-54 % Normal HCT 40.5 LAB L100.1500 80-94 fL Normal MCV 92.0 LAB L100.1600 27.0-32.0 pg Normal MCH 31.4 LAB L100.1700 32-36 g/gl Normal MCHC 34.1 LAB L100.1810 11.6-14.6 % High RDW CV 14.7 LAB L100.1820 35.1-43.9 fl High RDW SD 47.9 LAB L100.1900 150-450 K/mm3 Normal PLT 278 LAB L100.2000 6.2-12.0 fl Normal MPV 9.5 LAB L100.2100 47-70 % High NEUT% 86.2 LAB L100.2200 19-41 % Low LY% 9.8 LAB L100.2300 0-10 % Normal MONO% 3.2 LAB L100.2400 0-5 % Normal EO% 0.3 LAB L100.2500 0-1 % Normal BASO% 0.1 LAB L100.2550 0.0-0.9 % Normal IM GRAN % 0.400 Result Comment: IG% - Immature Granulocytes (promyelocytes, myelocytes and metamyelocytes) > 1% indicates that a LEFT SHIFT is Present. LAB L100.2620 2.0-7.7 X10 3/uL High Absolute Neut 11.1 LAB L100.2720 0.83-4.51 X10 3/ul Normal Absolute Lymph 1.25 Performed By: #### L100.0100 #### [facility] [address] [place], [place], [address] BASIC METABOLIC Collected: 05/07/2017 Status: F Source: [place] PROFILE (BMP) 12:30 PM [facility] REPOSITORY Order Comment: 'TROP' Serial specimen #1, #2, #3, or #4: 1 TYPE CODE TESTS RESULT OUT OF RANGE REFERENCE UNITS LAB L501.0100 74-106 mg/dL High GLU 116 Result Comment: Fasting Glucose result from 100 to 125 mg/dL suggests IMPAIRED HOMEOSTASIS per A.D.A. criteria. Please note revised GLUCOSE reference range effective 2017. LAB L501.1000 7-18 mg/dL High BUN 28 LAB L501.1100 0.70-1.30 mg/dL Normal CREAT,SERUM 1.06 Result Comment: The validity of the calculated GFR AND GFRAA in patients over 70 years has not been determined. Clinical correlation is essential. LAB L501.1110 >60 mL/min Normal EST GFR 75 Result Comment: Non- GFR Calc LAB L501.1115 >60 mL/min Normal EST GFR - AA 91 Result Comment: GFR Calc LAB L501.1255 ml/min Normal Estimated CRCL 59.49 LAB L501.1300 10-20 RATIO High BUN/CRE 26.4 LAB L501.2200 8.5-10 mg/dL Normal .1 CA 8.6 LAB L501.5300 136-14 mmol/L Normal 5 NA 137 LAB L501.5600 3.5-5. mmol/L Normal 1 K 4.2 LAB L501.5900 98-107 mmol/L High CL 108 LAB L501.6100 21.0-3 mmol/L Normal 2.0 CO2 23.0 LAB L501.6200 5-15 Normal GAP 6 Performed By: #### L500.2500, L501.4010 #### [facility] [address] [place], [address] TROPONIN-I Collected: 05/07/2017 Status: F Source: [place] 12:30 PM [facility] REPOSITORY Order Comment: 'TROP' Serial specimen #1, #2, #3, or #4: 1 TYPE CODE TESTS RESULT OUT OF RANGE REFERENCE UNITS LAB L501.4010 <0.06 ng/mL Normal < 0.02 TROPONIN-I Result Comment: TROPONIN-I EXPECTED VALUES <0.05 NEGATIVE 0.06 - 0.59 AT RISK OF [place] > OR = 0.60 SUGGEST [place] Performed By: #### L500.2500, L501.4010 #### [facility] [address] [place], [address] CHEST 1 VIEW Observed: 05/07/2017 Status: F Source: [place] (PORTABLE) 12:10 PM [facility] REPOSITORY [facility] Imaging Services [address] [place] [address] Chest 1 View (Portable) MR#: [id number] Acct: [id number] Name: FRANKI WALTERS Chen Rep #: [id number] : 1955 M 61 From: Rae Keita MD PCP: Naif Rojas Status: REG ER Study: Chest 1 View (Portable) Date of Exam: 05/07/17 Exam# [id number] Ordering Dr: Lexis Diane MD STUDY: X-RAY CHEST REASON FOR EXAM: Male, 61 years old. Chest pain TECHNIQUE: Single AP portable view of the chest. COMPARISON: None. FINDINGS: The lungs are hyperexpanded. There is a right upper lobe calcified granuloma. There are minimally prominent interstitial markings of the lower lobes. There is no demonstrated pleural abnormality. Normal size heart. Normal mediastinum and ramila. Normal visualized pulmonary arteries. There is atherosclerotic calcification of the aortic arch with tortuosity. Normal visualized thoracic spine. Normal visualized ribs, clavicles, and shoulders. There is no demonstrated abnormality of the visualized soft tissue structures of the upper abdomen. RAD/Chest 1 View (Portable) IMPRESSION: The lungs are hyperexpanded. Electronically Signed: Rae Keita MD at 13:14 EDT , Service support , CC: Lexis Diane MD; Naif Rojas Certified Nurse Aide: Signed SHOULDER MIN 2 VIEWS Observed: 04/24/2017 Status: F Source: [place] 3:58 PM [facility] REPOSITORY [facility] Imaging Services [address] [place] [address] Shoulder min 2 Views MR#: [id number] Acct: [id number] Name: FRANKI CHAVES Rep #: [id number] : 1955 M 61 From: London Landeros MD PCP: Naif Rojas Status: REG CLI Study: Shoulder min 2 Views Date of Exam: 04/24/17 Exam# [id number] Ordering Dr: Naif Rojas MD STUDY: X-RAY - RIGHT SHOULDER REASON FOR EXAM: Right shoulder pain for 2 years. TECHNIQUE: 4 view(s) of the shoulder. COMPARISON: None. FINDINGS: Normal glenohumeral articulation. There is acromioclavicular arthrosis. Normal acromion. Normal humeral head and visualized proximal humerus. The soft tissue structures are unremarkable. There is a small granuloma in the right mid lung. RAD/Shoulder min 2 Views IMPRESSION: Acromioclavicular arthrosis. Electronically Signed: London Landeros MD at 12:54 EDT Tel , Service support , CC: Naif Rojas Certified Nurse Aide: Signed ALLERGIES ALLERGIES DATE TYPE / CODE NAME / CODE REACTION SEVERITY SOURCE 01/06/2018 Drug sucralfate/ Other Unknown [facility] Allergy/4160 [id number]( [facility](SNOMED RXNORM) Repository CT) 01/06/2018 Drug buspirone/F shaking, restless [place] [facility] Allergy/4160 [id number](R legs [facility](SNOMED XNORM) Repository CT) 01/06/2018 Drug venom-honey Anaphylaxis Unknown [facility] Allergy/4160 bee/[id number] [facility](SNOMED 698(RXNORM) Repository CT) ENCOUNTERS ENCOUNTERS ADMIT/DISCHARGE ACCOUNT ADMITTING ENCOUNTER LOCATION SOURCE NUMBER CLASS 01/27/2018 [id number] Ambulatory BMSBuilding:B [place] 0 MS.[facility] Repository 01/27/2018 [id number] Ambulatory [place] 7 [facility] ing:[facility] Repository 01/06/2018/ [id number] Ambulatory BMSBuilding:B [place] 8 3 MS.[facility] Repository 12/30/2017/ [id number] Ambulatory BMSBuilding:B [place] 8 1 MS.[facility] Repository 12/26/2017/ [id number] Ambulatory BMSBuilding:B [place] 8 9 MS.[facility] Repository 12/18/2017/ [id number] Kevin Long Inpatient [place] 8 2 [facility] ing:PC5Sigo: Repository EK216Fku: 1 12/18/2017/ [id number] Ambulatory BMSBuilding:B [place] 8 1 MS.CF.[facility] Repository 12/16/2017 [id number] Ambulatory BMSBuilding:W [place] 6 [facility] Repository 12/09/2017/ [id number] Ambulatory BMSBuilding:B [place] 8 5 MS.[facility] Repository 10/30/2017/ [id number] Ambulatory BMSBuilding:B [place] 8 7 MS.[facility] Repository 2017 [id number] Ambulatory [place] 8 [facility] ing:[facility] Repository 10/23/2017/ [id number] Ambulatory BMSBuilding:B [place] 8 8 MS.[facility] Repository 10/17/2017 [id number] Ambulatory [place] 0 [facility] ing:CT Repository 10/10/2017/ [id number] Ambulatory [place] 8 9 [facility] ing[facility] Repository 10/10/2017 [id number] Ambulatory BMSBuilding:B [place] 1 [place].CF.[facility] Repository 10/02/2017 [id number] Ambulatory BMSBuilding:B [place] 6 [facility] Repository 10/02/2017 [id number] Ambulatory [place] 5 [facility] ing[facility] Repository 10/02/2017 [id number] Ambulatory BMSBuilding:B [place] 5 MS.CF.[facility] Repository 10/01/2017 [id number] Ambulatory [place] 5 [facility] ing:RAD.[facility]UR Repository E 09/25/2017 [id number] Ambulatory [place] 3 [facility] ing:LAB Repository 09/24/2017/ [id number] Ambulatory BMSBuilding:B [place] 8 4 MS.[facility] Repository 08/22/2017 [id number] Ambulatory [place] 6 [facility] ing:[facility] Repository 08/20/2017 [id number] Ambulatory [place] 8 [facility] ing:BFHLAB Repository 05/07/2017/ [id number] Emergency [place] 5 [facility] ing:ED Repository 04/24/2017 [id number] Ambulatory [place] 5 [facility] ing:MTRAD Repository PAYERS PAYERS ENCOUNTER GUARANTOR PAYER SUBSCRIBER SOURCE 01/27/2018 FRANKI L Primary FRANKI L [place] ANASTACIO Insurance[facility] [id number] [address] [place] Number: TANKB: [facility] [address] [id number] Repository [place], [place] Date:2018-01-09P O 20093Zkp: (330) [address]ATTN: CLAIMS [phone] () [place] [address]NY: 01/27/2018 Secondary NOT GIVENUNK [place] Insurance:SELF PAY [facility] Number: Effective Repository Date:2018-01-27 01/27/2018 FRANKI L Primary FRANKI CHAVES [facility] [id number] [address] [place] Number: TANKB: [facility] [address] [id number] Repository [place], [place] Date:2018-01-09P O [phone]: (330) [address]ATTN: CLAIMS [phone] (HP) [place] [address]UF: 01/27/2018 Secondary NOT GIVENUNK [place] Insurance:SELF PAY [facility] Number: Effective Repository Date:2018-01-09 01/06/2018 FRANKI L Primary FRANKI L Hetal [place] [facility] [id number] olfransiscoy Number: NATALIE: [facility] [id number] Repository [address] [place] [address] Date:2017-12-30P O [phone]: (330) [address]ATTN: CLAIMS [phone] (HP) [place] [address]GA: 01/06/2018 Secondary NOT GIVENUNK [place] Insurance:SELF PAY [facility]: Effective Repository Date:2018-01-06 12/30/2017 FRANKI L Primary FRANKI L Hetal ANASTACIO Insurance:CARESOURCEP ANASTACIO [facility] [id number] olicy Number: TANKB: [facility] [id number] Repository [address] [place] [address] Date:2017-12-26P O [phone]: (330) [address]ATTN: CLAIMS [phone] (HP) [place] [address]VK: 12/30/2017 Secondary NOT GIVENUNK [place] Insurance:SELF PAY [facility] Number: Effective Repository Date:2017-12-30 12/26/2017 FRANKI L Primary FRANKI L [place] ANASTACIO Insurance:CARESOURCEP ANASTACIO [facility] [id number] olicy Number: TANKB: [facility] [id number] Repository [address] [place] [address] Date:2017-12-25P O [phone]: (330) [address]ATTN: CLAIMS [phone] (HP) [place] [address]JY: 12/26/2017 Secondary NOT GIVENUNK [place] Insurance:SELF PAY [facility] Number: Effective Repository Date:2017-12-26 12/18/2017 FRANKI L Primary FRANKI L [place] ANASTACIO Insurance:CARESOURCEP ANASTACIO Community [id number] olicy Number: TANKB: [facility] [id number] Repository [address] [place] [address] Date:2017-12-09P O [phone]: (330) [address]ATTN: CLAIMS [phone] (HP) [place] [address]AM: 12/18/2017 Secondary NOT GIVENUNK [place] Insurance:SELF PAY [facility] Number: Effective Repository Date:2017-12-09 12/18/2017 FRANKI Siddiqui Primary FRANKI Siddiqui Hetal ANASTACIO Insurance:CARESOURCEP ANASTACIO Community [id number] olicy Number: TANKB: [facility] [id number] Repository [address] [place] [address] Date:2017-12-09P O [phone]: (330) [address]ATTN: CLAIMS [phone] (HP) [place] [address]YT: 12/18/2017 Secondary NOT GIVENUNK [place] Insurance:SELF PAY [facility] Number: Effective Repository Date:2017-12-18 12/16/2017 FRANKI L Primary FRANKI [place] ANASTACIO Insurance:CARESOURCEP ANASTACIO Community [id number] olicy Number: TANKB: [facility] [id number] Repository [address] [place] [address] Date:2017-12-09P O [phone]: (330) [address]ATTN: CLAIMS [phone] (HP) [place] [address]MG: 12/16/2017 Secondary NOT GIVENUNK [place] Insurance:SELF PAY [facility] Number: Effective Repository Date:2017-12-16 12/09/2017 FRANKI Siddiqui Primary FRANKI Siddiqui [place] ANASTACIO Insurance:CARESOURCEP ANASTACIO Community [id number] olicy Number: TANKB: [facility] [id number] Repository [address] [place] [address] Date:2017 O [phone]: (330) [address]ATTN: CLAIMS [phone] (HP) [place] [address]CD: 12/09/2017 Secondary NOT GIVENUNK [place] Insurance:SELF PAY [facility] Number: Effective Repository Date:2017-12-05 10/30/2017 FRANKI L Primary FRANKI L Hetal ANASTACIO Insurance:CARESOURCEP ANASTACIO Community [id number] S olicy Number: TANKB: [facility], [id number] [place]ository [place] [address]Nke: (330) Date:2017 O [phone] () [address]ATTN: [place] [address]MY: 10/30/2017 Secondary NOT GIVENUNK [place] Insurance:SELF PAY [facility] Number: Effective Repository Date:2017 2017 FRANKI L Primary FRANKI Siddiqui [place] ANASTACIO Insurance:CARESOURCEP [facility] [id number] S olicy Number: TANKB: [facility], [id number] [place]ository [place] [address]Qsf: (330) Date:2017 O [phone] () [address]ATTN: [place] [address]HD: 2017 Secondary NOT GIVENUNK [place] Insurance:SELF PAY [facility] Number: Effective Repository Date:2017 2017 FRANKI L Primary FRANKI Siddiqui Hetal ANASTACIO Insurance:CARESOURCEP ANASTACIO [facility] [id number] S olicy Number: TANKB: [facility], [id number] [place]ository [place] [address]Ula: (330) Date:2017-10-02P O [phone] () [address]ATTN: [place] [address]TX: 2017 Secondary NOT GIVENUNK [place] Insurance:SELF PAY [facility] Number: Effective Repository Date:2017-10-02 10/17/2017 FRANKI L Primary FRANKI L [place] ANASTACIO Insurance:CARESOURCEP ANASTACIO [facility] [id number] S olicy Number: TANKB: [facility], [id number] [place]ository [place] [address]Ewb: (330) Date:2017-10-08P O [phone] () [address]ATTN: [place] [address]UK: 10/17/2017 Secondary NOT GIVENUNK [place] Insurance:SELF PAY [facility] Number: Effective Repository Date:2017-10-08 10/10/2017 FRANKI L Primary FRANKI L Hetal ANASTACIO Insurance:CARESOURCEP ANASTACIO [facility] [id number] S olicy Number: CLAUDYDOB: [facility], [id number] [place]ository [place] [address]Jfm: (330) Date:2017-09-24P O [phone] () [address]ATTN: [place] [address]ZC: 10/10/2017 Secondary NOT GIVENUNK [place] Insurance:SELF PAY [facility] Number: Effective Repository Date:2017-09-24 10/10/2017 FRANKI L Primary FRANKI L Hetal ANASTACIO Insurance:CARESOURCEP ANASTACIO [facility] [id number] S olicy Number: TANKB: [facility], [id number] [place]ository [place] [address]Rjt: (330) Date:2017-09-24P O [phone] () [address]ATTN: [place] [address]CW: 10/10/2017 Secondary NOT GIVENUNK [place] Insurance:SELF PAY [facility] Number: Effective Repository Date:2017-10-10 10/02/2017 FRANKI L Primary FRANKI L Hetal ANASTACIO Insurance:CARESOURCEP ANASTACIO [facility] [id number] olicy Number: TANKB: [facility], [id number] [place]ository [place] [address]Wir: (330) Date:2017-09-24P O [phone] () [address]ATTN: [place] [address]ZF: 10/02/2017 Secondary NOT GIVENUNK [place] Insurance:SELF PAY [facility] Number: Effective Repository Date:2017-10-02 10/02/2017 FRANKI L Primary FRANKI L [place] ANASTACIO Insurance:CARESOURCEP ANASTACIO Community [id number] S olicy Number: CLAUDYDOB: [facility], [id number] [place]ository [place] [address]Xro: (330) Date:2017-09-24P O [phone] () [address]ATTN: [place] [address]XE: 10/02/2017 Secondary NOT GIVENUNK [place] Insurance:SELF PAY [facility] Number: Effective Repository Date:2017-09-24 10/02/2017 FRANKI L Primary FRANKI L Hetal ANASTACIO Insurance:CARESOURCEP ANASTACIO [facility] [id number] olicy Number: CLAUDYDOB: [facility], [id number] [place]ository [place] [address]Pml: (330) Date:2017-09-24 O [phone] () [address]ATTN: [place] [address]RH: 10/02/2017 Secondary NOT GIVENUNK [place] Insurance:SELF PAY [facility] Number: Effective Repository Date:2017-10-02 10/01/2017 FRANKI L Primary FRANKI L [place] ANASTACIO Insurance:CARESOURCEP ANASTACIO [facility] [id number] S olicy Number: CLAUDYDOB: [facility], [id number] [place]ository [place] [address]Oql: (330) Date:2017-08-22 O [phone] () [address]ATTN: [place] [address]HK: 10/01/2017 Secondary NOT GIVENUNK [place] Insurance:SELF PAY [facility] Number: Effective Repository Date:2017-08-22 09/25/2017 FRANKI L Primary FRANKI L [place] ANASTACIO Insurance:CARESOURCEP ANASTACIO [facility] [id number] [address] olicy Number: NATALIE: [facility], [id number] [place]ository [place] [address]Vet: (330) Date:2017-09-25P O [phone] () [address]ATTN: [place] [address]GI: 09/25/2017 Secondary NOT GIVENUNK [place] Insurance:SELF PAY [facility] Number: Effective Repository Date:2017-09-25 09/24/2017 FRANKI L Primary FRANKI L [place] ANASTACIO Insurance:CARESOURCEP ANASTACIO [facility] [id number] olfransiscoy Number: NATALIE: [facility], [id number] [place]ository [place] [address]Yrr: (330) Date:2017-08-28P O [phone] () [address]ATTN: [place] [address]EB: 09/24/2017 Secondary NOT GIVENUNK [place] Insurance:SELF PAY [facility] Number: Effective Repository Date:2017-09-24 08/22/2017 FRANKI L Primary FRANKI L [place] ANASTACIO Insurance:CARESOURCEP ANASTACIO [facility] [id number] S olfransiscoy Number: NATALIE: [facility], [id number] [place]ository [place] [address]Tky: (330) Date:2017-08-21P O [phone] () [address]ATTN: [place] [address]WL: 08/22/2017 Secondary NOT GIVENUNK [place] Insurance:SELF PAY [facility] Number: Effective Repository Date:2017-08-21 08/20/2017 FRANKI L Primary FRANKI L [place] ANASTACIO Insurance:CARESOURCEP ANASTACIO [facility] [id number] olicy Number: NATALIE: [facility], [id number] [place]ository [place] [address]Xxg: (330) Date:2017-08-20P O [phone] (HP) [address]ATTN: [place] [address]HZ: 08/20/2017 Secondary NOT GIVENUNK [place] Insurance:SELF PAY [facility] Number: Effective Repository Date:2017-08-20 05/07/2017 FRANKI L Primary FRANKI L Hetal ANASTACIO Insurance:CARESOURCEP ANASTACIO [facility] [id number] olfransiscojose Number: DWIGHTELLDOB: [facility] [id number] Repository [address] [place] [address] Date:2017-05-07P O [phone]: (330) [address]ATTN: CLAIMS [phone] (HP) [place] [address]CV: 05/07/2017 Secondary NOT GIVENUNK [place] Insurance:SELF PAY [facility] Number: Effective Repository Date:2017-05-07 04/24/2017 Franki L Primary Franki L Hetal [id number] Insurance:CARESOURCEP DaughertyB: [facility] olicy Number: [id number] [address] [id number] Repository [address]Deg: (330) Date:2017-04-24P O [phone] (HP) [address]ATTN: [place] [address]FB: 04/24/2017 Secondary NOT GIVENUNK [place] Insurance:SELF PAY [facility] Number: Effective Repository Date:2017-04-24
== END ==
PROVIDERS: Family Provider Family Medicine; PCP Family Medicine; Referring Provider Surgery; Visit Provider Surgery
DX: I73.9 Peripheral vascular disease, unspecified (principal)
CPT/HCPCS: 93924

== ENCOUNTER → 2018-04-22 15:39 | Outpatient (CLI) | payer MEDICAID, SELFPAY ==
[2018-04-22 18:04] LABS: Absolute Lymphocyte Count 2.85 X10^3/ul (0.83-4.51); Absolute Neutrophil Count 3.5 X10^3/uL (2.0-7.7); Basophil# 0.04 X10^3/uL; Basophil% 0.5 % (0-1); Eosinophil# 0.35 X10^3/uL; Eosinophils% 4.8 % (0-5); Hematocrit 39.6 % (40-54); Hemoglobin 12.6 g/dl (13.0-16.5); Lymphocyte # 2.85 X10^3/ul (4.0); Lymphocyte % 38.7 % (19-41); Mean Corp Hgb Conc 31.8 g/gl (32-36); Mean Corpuscular Hgb 29.1 pg (27.0-32.0); Mean Corpuscular Volume 91.5 fL (80-94); Mean Platelet Vol. 10.1 fl (6.2-12.0); Monocyte# 0.61 X10^3/uL; Monocyte% 8.3 % (0-10); Neutrophil # 3.49 X10^3/uL (2.7-7.7); Neutrophil % 47.4 % (47-70); Platelet Count 399 K/mm3 (150-450); RBC Distribution Width CV 15.8 % (11.6-14.6); RBC Distribution Width SD 52.3 fl (35.1-43.9); Red Blood Count 4.33 M/mm3 (4.6-6.2); White Blood Count 7.4 K/mm3 (4.4-11.0)
[2018-04-22 18:07] LABS: POSITIVE COUNT NO; POSITIVE DIFFERENTIAL NO; POSITIVE MORPHOLOGY NO
[2018-04-22 18:21] LABS: ALB/GLOB Ratio 1.1 RATIO (0.9-2.4); AST(SGOT) 22 U/L (15-37); Alanine Aminotransfer ALT/SGPT 23 U/L (16-61); Albumin, Serum 3.9 g/dL (3.2-5.0); Alkaline Phosphatase 80 U/L (45-117); Anion Gap 9 (5-15); BUN 25 mg/dL (7-18); BUN/Creat Ratio 19.7 RATIO (10-20); Calcium,Total 8.9 mg/dL (8.5-10.1); Chloride 107 mmol/L (98-107); Creatinine, Serum 1.27 mg/dL (0.70-1.30); EST Glomerular Filtration Rate 61 mL/min (>60); Est Glom Filt Rate - Afr Amer 73 mL/min (>60); Globulin 3.7 g/dL (2.2-4.2); Glucose 84 mg/dL (74-106); Lipase 128 U/L (73-393); Potassium 4.4 mmol/L (3.5-5.1); Protein, Total 7.6 g/dL (6.4-8.2); Sodium Level 141 mmol/L (136-145)
== END ==
PROVIDERS: Family Provider Family Medicine; PCP Family Medicine; Visit Provider Family Medicine
DX: R11.0 Nausea (principal); B18.2 Chronic viral hepatitis C
CPT/HCPCS: 36415; 80053; 83690; 85025

== ENCOUNTER 2018-05-05 14:41 | Emergency (ER) | payer MEDICAID, SELFPAY ==
[2018-05-05 14:42] VITALS: BP 113/91; PULSE 80; RESP 16; TEMP 36.8; O2SAT 98; BMI 17.2
--- NOTE | 2018-05-05 15:10 | RAD_ITS ---
STUDY: X-RAY CHEST REASON FOR EXAM: Male, 62 years old. Mid chest pain. TECHNIQUE: PA and lateral views of the chest. COMPARISON: Comparison is made with prior study dated October 01, 2017. FINDINGS: Hyperinflation. Stable increased interstitial markings at the lung bases suggestive of scarring. There is no demonstrated pleural abnormality. Normal size heart. Normal mediastinum and ramila. Normal visualized pulmonary arteries. There is atherosclerotic calcification of the aortic arch with tortuosity. Normal visualized thoracic spine. Normal visualized ribs, clavicles, and shoulders. There is evidence of prior cholecystectomy. RAD/Chest PA and Lateral IMPRESSION: Hyperinflation. Electronically Signed: Ruben Ramsay, at 15:42 EDT , Service support ,
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
--- NOTE | 2018-05-05 16:34 | ED.DEP ---
ED Disposition - Plan for ED Patient: Disposition: Home or Assisted Living Instructions: ED Contusion Chest Wall Prescriptions: Hydrocodone Bitart/Apap 5-325 [[place] 5MG-325MG] 1 tablet PO Q6H PRN PRN 3 Days #10 tablet PRN Reason: Pain Referrals: Naif Rojas MD [Primary Care Provider] - 1 Week if not improving
== END 2018-05-05 16:51 | disposition home or self-care (01) ==
LOC: ED 16:45
PROVIDERS: Emergency Provider Emergency Medicine; Family Provider Family Medicine; PCP Family Medicine
DX: S20.219A Contusion of unspecified front wall of thorax, initial encounter (principal); W18.09XA Striking against other object with subsequent fall, initial encounter; Y93.9 Activity, unspecified; Y92.89 Other specified places as the place of occurrence of the external cause; Y99.9 Unspecified external cause status; K21.9 Gastro-esophageal reflux disease without esophagitis; F32.9 Major depressive disorder, single episode, unspecified; F41.9 Anxiety disorder, unspecified; Z87.891 Personal history of nicotine dependence
CPT/HCPCS: 71046; 99282

== ENCOUNTER → 2018-05-26 13:51 | Outpatient (CLI) | payer MEDICAID, SELFPAY ==
[2017-12-18 11:31] VITALS: BMI 18.8
[2018-05-05 14:42] VITALS: BMI 17.2
[2018-05-26 15:25] LABS: Absolute Lymphocyte Count 2.89 X10^3/ul (0.83-4.51); Absolute Neutrophil Count 2.7 X10^3/uL (2.0-7.7); Basophil# 0.03 X10^3/uL; Basophil% 0.5 % (0-1); Eosinophil# 0.36 X10^3/uL; Eosinophils% 5.4 % (0-5); Hemoglobin 11.9 g/dl (13.0-16.5); Lymphocyte # 2.89 X10^3/ul (4.0); Lymphocyte % 43.7 % (19-41); Mean Corp Hgb Conc 32.2 g/gl (32-36); Mean Corpuscular Hgb 29.3 pg (27.0-32.0); Mean Corpuscular Volume 91.1 fL (80-94); Mean Platelet Vol. 9.9 fl (6.2-12.0); Monocyte# 0.63 X10^3/uL; Monocyte% 9.5 % (0-10); Neutrophil % 40.9 % (47-70); POSITIVE COUNT NO; POSITIVE DIFFERENTIAL NO; POSITIVE MORPHOLOGY NO; Platelet Count 386 K/mm3 (150-450); RBC Distribution Width CV 15.9 % (11.6-14.6); RBC Distribution Width SD 52.7 fl (35.1-43.9); Red Blood Count 4.06 M/mm3 (4.6-6.2); White Blood Count 6.6 K/mm3 (4.4-11.0)
[2018-05-26 15:41] LABS: Vitamin B12 881 pg/mL (211-911)
[2018-05-26 16:12] LABS: Ferritin 12 ng/mL (26-388); Iron 35 ug/dL (65-175)
== END ==
PROVIDERS: Family Provider Family Medicine; PCP Family Medicine; Referring Provider Family Medicine; Visit Provider Family Medicine
DX: D64.9 Anemia, unspecified (principal)
CPT/HCPCS: 36415; 82607; 82728; 82746; 83540; 85025

== ENCOUNTER 2018-06-09 05:25 | Day surgery (SDC) | payer MEDICAID, SELFPAY ==
[2018-06-04 14:41] VITALS: BMI 17.9
--- NOTE | 2018-06-04 16:57 | HP_ITS ---
Intake Vital Signs 06/04/18 Height 5 ft 10 in 06/04/18 Weight: 125 lb 06/04/18 Body Mass Index (BMI) 17.9 06/04/18 Blood Pressure 154/85 H 06/04/18 Blood Pressure Location Lt brachial 06/04/18 Blood Pressure Position Sitting 06/04/18 Respiratory Rate 18 06/04/18 Body Mass Index (BMI) 17.2 Intake Visit Reasons: EGD DX ANEMIA Chief Complaint: recheck groin incision Certified Optician Required: No Is patient in pain?: No Allergies buspirone [From BuSpar] Allergy (Mild, Verified 06/04/18 14:42) shaking, restless legs sucralfate [From Carafate] Allergy (Verified 06/04/18 14:42) Other venom-honey bee [bee venom (honey bee)] Allergy (Verified 06/04/18 14:42) Anaphylaxis Medications buPROPion SR [Wellbutrin SR (150mg tablets)] 300 mg PO DAILY 05/06/15 [History Confirmed 06/04/18] paroxetine 40 mg tablet 40 mg PO QDAY 09/24/17 [History Confirmed 06/04/18] Aspirin 1 tab PO DAILY 10/10/17 [History Confirmed 06/04/18] Gauze #1 pkg 12/30/17 [Rx Confirmed 06/04/18] ferrous sulfate 325 mg (65 mg iron) tablet 325 mg PO DAILY tab 06/04/18 [History Confirmed 06/04/18] omeprazole 20 mg capsule,delayed release 20 mg PO DAILY 06/04/18 [History Confirmed 06/04/18] PFSH Medical History Skin cancer, basal cell (Acute) PAD (peripheral artery disease) (Acute) Basal cell carcinoma (BCC) (Acute) Hemorrhoid (Acute) GERD (gastroesophageal reflux disease) (Acute) Anxiety (Acute) Depression (Acute) Osteoarthritis (Acute) Chronic back pain (Acute) PAD (peripheral artery disease) (Acute) Surgical History Hx of endarterectomy (Acute) History of cholecystectomy (Acute ~2002) Family History Mother Diabetes Heart disease Hypertension Thyroid disorder Ulcer Sister Asthma Heart disease Hypertension Cancer multiple myeloma Social History Smoking Status: Current every day smoker HPI HPI HPI: LEIGH LOCO, is a 62 M who presents to the office today for HPI HPI Surgical H&P: Yes HPI: LEIGH LOCO, is a 62 M who presents to the office today for surgical consultation regarding chronic iron deficiency anemia. The patient is referred by his primary care physician Dr. Naif Rojas and a written compromise surgical consult and recommendations will return to him. I have assisted the patient previously with bilateral endovascular iliac stenting with then a staged approach with a right common femoral artery endarterectomy. He has had good results from that. As recent as May 26, 2018 his hemoglobin is 11.9 with hematocrit of 37 and a platelet count of 386,000. This was not related to his surgery which was performed December 2017. His current iron level is 35. Current ferritin level is 12. For the past 2 months he has been on omeprazole therapy. He still gets intermittent nausea. He has never had a colonoscopy. He also for his peripheral vascular work has been on 81 mg aspirin. ROS General General: Yes weight change and fatigue; no appetite, colon cancer, breast cancer or weakness Endo Endocrine: No thyroid disease, diabetes mellitus, thyroid cancer, Hair loss, heat intolerance or cold intolerance Musc Musculoskeletal: Yes back problems and arthritis; no rheumatoid arthritis, gout or joint pain Cardio Cardiovascular: No murmur, pacemaker, heart disease, atrial fibrillation, high blood pressure, heart attack, heart stent, palpitations, shortness of breat with exertion or chest pain Psych Psychiatric: Yes depression and anxiety; no hearing voices Resp Respiratory: No shortness of breath, No sleep apnea, Yes cough, No COPD, No asthma, No emphysema, No wheezing Gastro Gastrointestinal: No abdominal pain, No nausea or vomiting, No diarrhea, No constipation, No blood in stool, Yes acid reflux, Yes hemorrhoids, No ulcers, No gallbladder problem, No black,tarry stools Edward Hematologic: No blood thinners, No blood disorders, No bleeding, No anemia, No blood clots Neuro Neurologic: No weakness Exam Const General: cooperative Nutritional Appearance: thin Orientation: alert, awake, oriented x3 HENMT Head: normal to inspection Eyes General: appearance normal, both eyes and all related structures Resp Effort & Inspection: normal respiratory effort Auscultation: clear to auscultation bilaterally Cardio Rate: regular rate Rhythm: regular rhythm Heart Sounds: no murmurs GI Palpation: soft, no hepatosplenomegaly Auscultation: normal bowel sounds Extrem General: no calf tenderness bilaterally Psych Affect: normal affect Assessment & Plan Problems 1. Iron deficiency anemia, unspecified iron deficiency anemia type D50.9 Plan Source of the patient's iron deficiency anemia is indeterminate. I recommend to the patient a combined esophagogastroduodenoscopy with possible biopsy and colonoscopy with possible biopsy or polypectomy as indicated. I have described the technique, benefit, risk and alternatives. He has had an opting to ask and have questions answered. I anticipate pursuing this under monitored anesthesia care. Careful inspection and appropriate biopsies will be pursued. If the upper and lower scope or not remarkable and might consider a small bowel follow-through to assess that organ. I appreciate the ongoing opportunity of assisting with his surgical care CC: Dr. Naif Long M.D., F.A.C.S. Coding Level of Care Code Detailed, Low Diagnoses Iron deficiency anemia, unspecified iron deficiency anemia type D50.9 ??Iron deficiency anemia type: unspecified iron deficiency
--- NOTE | 2018-06-09 | IMM_PTH ---
PATIENT: LEIGH WALTERS LOC: EN U#:[id number] AGE/SX: 62/M ROOM: RE06/09/[address]: Dr. Kevin Long MD : 1955 BED: DIS: 06/09/2018 SPEC #: [id number] RECD: 06/10/18 13:08 STATUS: OSMAN REQ #: [id number] RACHEL: 06/09/18 00:[address]: Kevin Long DEPT: IMMUNOHISTOCHEMISTRY RECD BY: Trinity Torres ENTERED: 06/10/18 13:08 SP TYPE: IMMUNO OTHR DR: Dr. Naif Rojas MD Tissues: C - Stomach, NOS Procedures: H Pylori (initial) PHYSICIAN & INSTITUTION [place] [id number] SPECIMEN INFORMATION: Tissue Source: C - Antral biopsy Clinical Info: Iron deficiency anemia Specimen Number: [id number] CPT code: 12113 METHODOLOGY: Deparaffinized sections of prefer/formalin-fixed tissue or PAP/DQ stained slides are incubated with monoclonal/polyclonal antibodies/oligonucleotide probes. Localization is made via biotin free immunoperoxidase method. Appropriate controls are performed and reacted as expected. Results on target cell population are indicated in the following table: RESULTS: ANTIBODY / CLONE RESULT Block C H Pylori (polyclonal) negative These tests were developed and their performance characteristics determined by [facility]. They may not have been cleared or approved by the U.S. Food and Drug Administration. The FDA has determined that such clearance or approval is not necessary. INTERPRETATION: C. Antral biopsy: Negative for Helicobacter pylori organisms. SJ:kristal 06/11/18
--- NOTE | 2018-06-09 05:35 | SUR.PREOP ---
PT. REPORTS STOOLS ARE LIQUID BROWN. RN PAGED DR. RODRIGUEZ TO NOTIFY.
[2018-06-09 05:55] VITALS: BP 153/89; PULSE 68; RESP 18; TEMP 36.3; O2SAT 100
--- NOTE | 2018-06-09 06:00 | SUR.PREOP ---
PT. 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 DR. RODRIGUEZ PAGED AND NOTIFIED. ADDITIONAL 500CC NACL ENEMA GIVEN PER DR. RODRIGUEZ ORDER.
--- NOTE | 2018-06-09 06:30 | EGD_PTH ---
PATIENT: LEIGH WALTERS LOC: EN U#:[id number] AGE/SX: 62/M ROOM: RE06/09/[address]: Dr. Kevin Long MD : [id number] BED: DIS: 06/09/2018 SPEC #: [id number] RECD: 06/09/18 07:42 STATUS: OSMAN REKleber #: [id number] RACHEL: 06/09/18 06:[address]: Kevin Long DEPT: SURGICAL PATHOLOGY RECD BY: Donavan Seay ENTERED: 06/09/18 10:27 SP TYPE: EGD BIOPSY [facility] DR: Dr. Naif Rojas MD Tissues: A - Gastric mucous membrane B - Duodenum, NOS C - Gastric mucous membrane D - Esophagus, NOS Procedures: Surgery Specimen Level IV HEADER OPERATION: Colonoscopy, EGD ([facility] [place] PRE-OP DIAGNOSIS: Iron deficiency, anemia TISSUE SUBMITTED: A. Submucosal bump biopsy, B. Duodenal biopsy, C. Antral biopsy, D. Distal esophagus biopsy MICROSCOPIC DIAGNOSIS A. Submucosal bump, biopsy: A fragment of duodenal mucosa with mild nonspecific chronic inflammation and Melissa gland hyperplasia. B. Duodenal biopsy: A fragment of duodenal mucosa with mild nonspecific chronic inflammation, Melissa gland hyperplasia and mild blunting of villi. C. Antral biopsy: Mild gastritis. See microscopic description and comment. D. Distal esophageal biopsy: Fragments of squamous mucosa with mild chronic inflammation. SJ:kristal 06/10/18 COMMENT C. The results of immunohistochemistry for Helicobacter pylori will be reported separately ([id number]). Correlation with clinical, endoscopic findings and appropriate follow up are necessary. MICROSCOPIC DESCRIPTION Slides are reviewed. C. The specimen shows fragments of gastric mucosa with chronic inflammatory cell infiltrates in the lamina propria consisting of lymphocytes and plasma cells, consistent with mild chronic gastritis. GROSS DESCRIPTION A - Received in fixative is one container labeled with the patient's name and designated submucosal bump biopsy. The specimen consists of one irregular fragment of light stanley soft tissue that measures 0.6 x 0.3 x 0.1 cm. The specimen is totally submitted in one cassette. B - Received in fixative is one container labeled with the patient's name and designated duodenal biopsy. The specimen consists of one irregular fragment of light stanley soft tissue that measures 0.3 x 0.3 x 0.1 cm. The specimen is totally submitted in one cassette. C - Received in fixative is one container labeled with the patient's name and designated antral biopsy. The specimen consists of one irregular fragment of light stanley soft tissue that measures 0.4 x 0.3 x 0.1 cm. The specimen is totally submitted in one cassette. D - Received in fixative is one container labeled with the patient's name and designated distal esophagus biopsy. The specimen consists of multiple irregular fragments of light stanley soft tissue that in aggregate measure 1.2 x 0.3 x 0.1 cm. The specimen is totally submitted in one cassette. / SJ:rg 06/09/18 TC:3 CPT: 46243 x4
--- NOTE | 2018-06-09 06:45 | SUR.PREOP ---
500CC NACL ENEMA GIVEN PER DR. RODRIGUEZ ORDER.
[2018-06-09 07:10] VITALS: BP 147/83; BP 153/89; PULSE 75; RESP 16; TEMP 36.1; O2SAT 100
--- NOTE | 2018-06-09 07:13 | OP.ENDO_ITS ---
06/09/2018 Naif Rojas Re : Upper GI endoscopy procedure for Franki Manzo Dear Bob This procedure was performed on Saturday, June 09, 2018. My impressions and recommendations are as follows: Impressions : - LA Grade A reflux esophagitis. Biopsied. - Medium-sized hiatal hernia. - Z-line variable, 40 cm from the incisors. - Erythematous mucosa in the antrum. Biopsied. - Submucosal nodule found in the duodenum. Biopsied. - Erythematous duodenopathy. Biopsied. Recommendations : - Discharge patient to home. - Resume previous diet. - Continue present medications. - Telephone my office for pathology results in 1 week. Findings suggest mild findings,no current bleeding or evidence of recent bleeding. However, ongoing acid suppresion for hiatal hernia, reflux, and mild gastritis/duodenitis clinically suggested. My findings are described in the full procedure note, which is enclosed. If I can be of further assistance, please feel free to contact me at Doctor phone number(s): Work: . Sincerely, Kevin Long MD 06/09/2018 7:12:51 AM This report has been signed electronically.
[2018-06-09 07:15] VITALS: BP 153/86; BP 153/89; PULSE 68; RESP 16; O2SAT 99
--- NOTE | 2018-06-09 07:16 | OP.ENDO_ITS ---
06/09/2018 Naif Rojas Re : Colonoscopy procedure for Franki Manzo Dear Bob This procedure was performed on Saturday, June 09, 2018. My impressions and recommendations are as follows: Impressions : - Lax anal tone and flat prostate. found on perianal exam. - Hemorrhoids found on perianal exam. - Diverticulosis in the sigmoid colon and in the descending colon. - Redundant colon. - The examination was otherwise normal. - No specimens collected. No active bleeding encountered, Recommendations : - Discharge patient to home. - Resume previous diet. - Continue present medications. - Repeat colonoscopy in 10 years for screening purposes. My findings are described in the full procedure note, which is enclosed. If I can be of further assistance, please feel free to contact me at Doctor phone number(s): Work: . Sincerely, Kevin Long MD 06/09/2018 7:16:13 AM This report has been signed electronically.
[2018-06-09 07:20] VITALS: BP 150/95; BP 153/89; PULSE 68; RESP 16; O2SAT 100
[2018-06-09 07:25] VITALS: BP 153/89; BP 160/77; PULSE 68; RESP 16; TEMP 36; O2SAT 100
[2018-06-09 07:32] VITALS: BP 153/89
== END 2018-06-09 08:05 | disposition home or self-care (01) ==
LOC: EN 05:27 → AC 05:27
PROVIDERS: Family Provider Family Medicine; PCP Family Medicine; Referring Provider Family Medicine; Visit Provider Surgery
PROC: 0DJD8ZZ Inspection of Lower Intestinal Tract, Via Natural or Artificial Opening Endoscopic (ICD-10-PCS; CPT 45378; principal; 2018-06-09 06:25)
DX: D50.9 Iron deficiency anemia, unspecified (principal); K64.9 Unspecified hemorrhoids; K57.30 Diverticulosis of large intestine without perforation or abscess without bleeding; K21.0 Gastro-esophageal reflux disease with esophagitis; K44.9 Diaphragmatic hernia without obstruction or gangrene; K22.8 Other specified diseases of esophagus; K31.89 Other diseases of stomach and duodenum; F17.200 Nicotine dependence, unspecified, uncomplicated
CPT/HCPCS: 43239; 45378; 88305; 88342; J7120

== ENCOUNTER → 2018-11-10 09:56 | Outpatient (CLI) | payer MEDICARE, MEDICAID, SELFPAY ==
[2018-06-04 14:41] VITALS: BMI 17.9
--- NOTE | 2018-11-10 10:01 | ART_ITS ---
Reason For Study: Claudication Procedure A bilateral lower extremity continuous wave Doppler with analog waveform analysis,segmental pressures,and ankle brachial indexes with exercise. Left Segmental Pressures Left brachial= 137mmHg. Left posterior tibial artery = 164mmHg. Left dorsalis pedis artery = 128mmHg. Left digit = 54 mmHg. The left dorsalis pedis waveforms are triphasic. The left posterior tibial artery waveforms are triphasic. Right Segmental Pressures Right brachial= 142mmHg. Right posterior tibial artery = 150mmHg. Right dorsalis pedis artery = 151mmHg. Right digit = 32 mmHg. The right dorsalis pedis waveforms are triphasic. The right posterior tibial artery waveforms are triphasic. Indices The right ankle brachial index by the dorsalis pedis is 1.06. The right ankle brachial index by the posterior tibial artery is 1.06. The right post exercise ankle brachial index is 0.53. The right digital-brachial index is 0.23. The left ankle brachial index by the dorsalis pedis is 0.90. The left ankle brachial index by the posterior tibial artery is 1.15. The left post exercise ankle brachial index is 0.68. The left digital-brachial index is 0.38. Interpretation Summary Normal resting bilateral lower extremity ankle brachial indices and waveforms. Abnormal bilateral digital brachial indices bilaterally--suspect small vessel disease Abnormal exercise indices bilaterally. Values are within the range of vascular claudication but the level of the disease cannot be determined--interpretation appears similar to 01/27/18 with execise indices slightly more diminished on this examination. Ordering Physician: Kevin Long Referring Physician: Naif Rojas Performed By: Luz Maria Hunter RVT
== END ==
PROVIDERS: Family Provider Family Medicine; PCP Family Medicine; Referring Provider Surgery; Visit Provider Surgery
DX: I73.9 Peripheral vascular disease, unspecified (principal)
CPT/HCPCS: 93924

== ENCOUNTER → 2018-11-19 13:47 | Outpatient (CLI) | payer MEDICARE, MEDICAID, SELFPAY ==
[2018-11-12 05:55] VITALS: BMI 17.9
[2018-11-19 15:44] LABS: Absolute Lymphocyte Count 2.07 X10^3/uL (0.83-4.51); Absolute Neutrophil Count 5.4 X10^3/uL (2.0-7.7); Basophil# 0.02 X10^3/uL; Basophil% 0.2 % (0-1); Eosinophil# 0.13 X10^3/uL; Eosinophils% 1.6 % (0-5); Hematocrit 38.3 % (40-54); Hemoglobin 12.3 g/dL (13.0-16.5); Lymphocyte # 2.07 X10^3/ul (4.0); Mean Corp Hgb Conc 32.1 g/dL (32-36); Mean Corpuscular Hgb 30.6 pg (27.0-32.0); Mean Corpuscular Volume 95.3 fL (80-94); Mean Platelet Vol. 10.3 fl (6.2-12.0); Monocyte# 0.67 X10^3/uL; Monocyte% 8.1 % (0-10); NRBC Flagged by Analyzer 0 % (0-5); Neutrophil # 5.35 X10^3/uL (2.7-7.7); Neutrophil % 64.6 % (47-70); Platelet Count 285 K/mm3 (150-450); RBC Distribution Width CV 14.9 % (11.6-14.6); RBC Distribution Width SD 51.9 fl (35.1-43.9); Red Blood Count 4.02 M/mm3 (4.6-6.2); White Blood Count 8.3 K/mm3 (4.4-11.0)
[2018-11-19 16:23] LABS: ALB/GLOB Ratio 1.1 RATIO (0.9-2.4); AST(SGOT) 15 U/L (15-37); Alanine Aminotransfer ALT/SGPT 17 U/L (16-61); Albumin, Serum 3.8 g/dL (3.2-5.0); Alkaline Phosphatase 84 U/L (45-117); Anion Gap 11 (5-15); BUN 20 mg/dL (7-18); BUN/Creat Ratio 18.5 RATIO (10-20); Calcium,Total 8.4 mg/dL (8.5-10.1); Chloride 107 mmol/L (98-107); Creatinine, Serum 1.08 mg/dL (0.70-1.30); EST Glomerular Filtration Rate 73 mL/min (>60); Est Glom Filt Rate - Afr Amer 88 mL/min (>60); Ferritin 14 ng/mL (26-388); Globulin 3.4 g/dL (2.2-4.2); Glucose 76 mg/dL (74-106); Iron 74 ug/dL (65-175); Potassium 4.4 mmol/L (3.5-5.1); Protein, Total 7.2 g/dL (6.4-8.2); Sodium Level 141 mmol/L (136-145)
[2018-11-21 16:07] LABS: Endomysial Antibody IgA Negative (Negative); Immunoglobulin A 52 mg/dL (61-437)
[2018-11-21 18:29] LABS: t-Transglutaminase IgA <2 U/mL (0-3)
== END ==
PROVIDERS: Family Provider Family Medicine; PCP Family Medicine; Visit Provider Family Medicine
DX: D50.9 Iron deficiency anemia, unspecified (principal); F43.23 Adjustment disorder with mixed anxiety and depressed mood; K90.41 Non-celiac gluten sensitivity; B18.2 Chronic viral hepatitis C
CPT/HCPCS: 36415; 80053; 82728; 82784; 83516; 83540; 85025; 86255

== ENCOUNTER 2018-11-22 09:21 | Emergency (ER) | payer MEDICARE, MEDICAID, SELFPAY ==
[2018-11-12 05:55] VITALS: BMI 17.9
[2018-11-22 09:22] VITALS: BP 137/78; PULSE 84; RESP 19; TEMP 36.9; O2SAT 100; BMI 19.3
[2018-11-22] MEDS: Diphth,Pertuss(Acell),Tet Vac 0.5 ML Vial IM (09:39)
--- NOTE | 2018-11-22 09:46 | ED.DCSUM_ITS ---
- ER Visit Summary Date of Service: 11/22/18 Chief Complaint: [Laceration to right hand] History of Present Illness: The patient is a 63 M [presents to the emergency department after sustaining a laceration to his right hand this morning. Patient states that some lockers at the [facility] [employer] and tumbled onto him and he try to catch him with his right hand. Patient unsure of his last tetanus. Patient with history of peripheral vascular disease.] Physical Examination: [Right hand-patient has a 2.5 cm laceration in the webspace between the thumb and index finger that is into the subcutaneous fat. Patient has normal range of motion flexion extension of all digits. He is neuro vascular intact. No foreign bodies noted within the wound.] Test Results: [None indicated] Emergency Department Course and Treatment: [Recent repair-wound sterilely draped and prepped. Wound cleansed with Shur-Clens and irrigated with copious saline. Using 1% lidocaine total of 4 cc used to anesthetize the area locally. Using 5-0 nylon a total of 5 single interrupted sutures placed with good wound edge approximation. Patient tired procedure well. Clean dressing applied.] Treatment Plan: [Patient has sutures removed in 10 days. Patient advised to return if increasing pain, redness, swelling, purulent drainage, or conditions worsen anyway.] Disposition: [Discharged home in stable condition.] Impression: [Laceration right hand 2.5 cm-simple repair] This note was generated with [employer] dictation software. It may contain incorrect words, spelling, and punctuation that were not noted in review of the chart prior to signing ED Disposition - Plan for ED Patient: Referrals: Naif Rojas MD [Primary Care Provider] -
--- NOTE | 2018-11-22 09:48 | ED.DEP ---
ED Disposition - Plan for ED Patient: Instructions: LACERATION, Hand Referrals: Naif Rojas MD [Primary Care Provider] - 10 Day for suture removal
== END 2018-11-22 10:11 | disposition home or self-care (01) ==
LOC: ED 09:50
PROVIDERS: Emergency Provider Emergency Medicine; Family Provider Family Medicine; PCP Family Medicine
DX: S61.411A Laceration without foreign body of right hand, initial encounter (principal); W45.8XXA Other foreign body or object entering through skin, initial encounter; I73.9 Peripheral vascular disease, unspecified; Z72.0 Tobacco use
CPT/HCPCS: 12001; 90715; 99282

== ENCOUNTER → 2018-12-17 14:54 | Outpatient (CLI) | payer MEDICARE, MEDICAID, SELFPAY ==
[2018-11-22 09:22] VITALS: BMI 19.3
[2018-12-17 17:11] LABS: Erythrocyte Sedimentation Rate 52 mm/hr (0-20)
[2018-12-19 20:10] LABS: Endomysial Antibody IgA Negative (Negative)
[2018-12-19 20:53] LABS: Immunoglobulin A 103 mg/dL (61-437); t-Transglutaminase IgA <2 U/mL (0-3)
== END ==
LOC: LAB.FUTURE 12-23 12:08 → BFHLAB 12-30 14:40
PROVIDERS: Family Provider Family Medicine; PCP Family Medicine; Visit Provider Family Medicine
DX: R19.7 Diarrhea, unspecified (principal)
CPT/HCPCS: 36415; 82784; 83516; 85652; 86140; 86255

== ENCOUNTER 2018-12-23 09:51 | Emergency (ER) | payer MEDICARE, MEDICAID, SELFPAY ==
[2018-12-23 09:53] VITALS: BP 104/57; PULSE 77; RESP 18; TEMP 37; O2SAT 99; BMI 17.9
--- NOTE | 2018-12-23 10:12 | CT_ITS ---
STUDY: CT BRAIN WITHOUT CONTRAST REASON FOR EXAM: Male, 63 years old. Injury to the right side of the head secondary to falls. No loss of consciousness. RADIATION DOSAGE (If Supplied By Facility): CTDIvol = ( 44.99 ) mGy, DLP = ( 796.11 ) mGycm TECHNIQUE: Transaxial CT imaging of the brain was performed without administration of intravenous contrast material. Individualized dose optimization techniques were used for this CT. COMPARISON: Comparison is made with prior examination dated May 06, 2015. FINDINGS: Normal soft tissue structures. Normal calvarium. Normal size ventricles and extra-axial spaces for the patient's age. Normal white matter tracts of the cerebral hemispheres. Normal basal ganglia and thalami. Normal brainstem. Normal cerebellum. There is no intracranial hemorrhage. There are no findings of an acute ischemic infarction. Atherosclerotic calcification of the cavernous portions of the internal carotid arteries bilaterally. Opacification of the maxillary sinuses as well as the ethmoid sinus, frontal sinus and sphenoid sinus. CT/Brain/Head without Contrast IMPRESSION: Pansinusitis. Electronically Signed: Rubne Ramsay, at 10:52 EST , Service support ,
--- NOTE | 2018-12-23 10:12 | RAD_ITS ---
STUDY: X-RAY - LEFT HAND REASON FOR EXAM: Male, 63 years old. Left fourth and fifth digit pain. No known trauma. TECHNIQUE: 3 view(s) of the hand. COMPARISON: None. FINDINGS: Normal radiocarpal articulation. Normal distal radioulnar joint. Normal visualized carpal bones. Normal carpal articulations Normal carpometacarpal articulation of the thumb. Normal second through fifth carpometacarpal joints. Normal metacarpi. Normal metacarpophalangeal joint of the thumb. Normal interphalangeal joint of the thumb. Normal proximal and distal phalanges of the thumb. Normal metacarpophalangeal joints of the second through fifth fingers. There is mild articular joint space narrowing of the proximal and distal interphalangeal joints of the second through fifth fingers, but without erosive changes or periarticular soft tissue swelling. Normal phalanges of the second through fifth fingers. Soft tissue swelling RAD/Hand Min 3 Views IMPRESSION: Soft tissue swelling. Electronically Signed: Ruben Ramsay, at 11:08 EST , Service support ,
--- NOTE | 2018-12-23 10:14 | ED.DCSUM_ITS ---
History of Present Illness Chief Complaint: Fall Informant: Patient Occurred: Yesterday Mechanism/Context: Same level fall, Trip - On edge of concrete, falling to sidewalk Quality of Pain: Aching Current Severity: Moderate Maximum Severity: Moderate Worsened by: Moving left hand Associated Symptoms: Negative for: Parasthesias, Weakness, Loss of function, Inability to ambulate, Loss of consciousness, Amnesia Narrative: Patient's been feeling well. He tripped and fell. He hit his head pretty hard but did not lose consciousness. Has had a headache and nausea ever since. No focal neurologic symptoms or loss of consciousness, confusion. Takes a baby aspirin daily for preventative purposes, no anticoagulants. R [id number]. Noticed his left hand has been swollen this morning, he had a friend cut a ring off of it because it was indenting the skin. Tetanus Immunization: <5 years - Past Medical History (1) Chronic back pain Status: Chronic (2) Depression Status: Chronic (3) GERD (gastroesophageal reflux disease) Status: Chronic (4) Iron deficiency anemia Status: Chronic (5) Osteoarthritis Status: Chronic (6) PAD (peripheral artery disease) Status: Chronic (7) Skin cancer, basal cell Status: Resolved Past Medical History - Allergies and Home Meds Allergies/Adverse Reactions: Allergies buspirone [From BuSpar] Allergy (Mild, Verified 12/23/18 09:53) shaking, restless legs sucralfate [From Carafate] Allergy (Verified 12/23/18 09:53) Other jaw locked up venom-honey bee [bee venom (honey bee)] Allergy (Verified 12/23/18 09:53) Anaphylaxis Primary Care Physician: Naif Rojas MD [Primary Care Provider] - Smoking Status: Current every day smoker Review of Systems General: Denies: Chills, Fever, Sweats Eyes: Denies: Visual changes - bilaterally, Diplopia ENT: Denies: Rhinorrhea, Sore throat Cardiovascular: Denies: Chest pain, Palpitations Respiratory: Denies: Dyspnea, Cough, Dyspnea on exertion Gastrointestinal: Reports: Nausea. Denies: Abdominal pain, Vomiting, Diarrhea, Melena, Hematochezia Genitourinary: Denies: Dysuria, Hematuria, Frequency Musculoskeletal: Reports: Neck pain, Extremity Pain. Denies: Back pain Skin: Reports: Abrasions, Wounds. Denies: Rash Neurological: Reports: Headache. Denies: Weakness, Numbness Physical Exam Vital Signs/Narrative: Vital Signs Temp Pulse Resp BP Pulse Ox 12/23/18 09:53 98.6 F 77 18 104/57 L 99 Inital Vital Signs reviewed: Yes General: Well nourished, Well developed, - - nad Head: Normocephalic, Atraumatic, - - no crepitance/depression or signs of trauma at affected area R temporal scalp Eyes: Perrl, EOMI ENT: TM's clear, No hemotympanum or drainage, No trauma Neck: Full ROM, Paraspinal Tenderness - mild right side; FROM w/o pain or neuro sx. no step offs.. Negative for: Spinal Tenderness Cardiovascular: Regular rate, Regular rhythm, No murmurs Respiratory: No distress, CTA bilaterally, Chest nontender Abdomen: Soft, Nontender, Nondistended, Normal bowel sounds Back: Nontender Extremeties: Full range of motion throughout all joints of left hand, extensors, FDS, FDP tendons all intact. Tender at the proximal phalanx and PIPJ of both the fourth and fifth digits. Nontender MCP J's, middle, distal phalanxes. Skin intact. Swelling noted to ring finger proximal phalanx with some mild bruising. No other tender bones in all 4 extremities. Skin: Normal color, No rash, Trauma - Superficial abrasion right hand thenar eminence. Neurological: Alert, Oriented x3, Cranial nerves II-XII grossly intact, Normal Strength, Normal Sensation, Normal Gait, - - GCS 15 Psychological: Normal affect, Normal Mood Diagnostic/Tx/Re-eval Impressions Brain CT 12/23/18 10:12 IMPRESSION: Pansinusitis. Electronically Signed: Ruben Ramsay, at 10:52 EST , Service support , Hand X-Ray 12/23/18 10:12 IMPRESSION: Soft tissue swelling. Electronically Signed: Ruben Ramsay, at 11:08 EST , Service support , 11/12/19 10:12 Brain/Head without Contrast [CT] Stat Hand Min 3 Views [RAD] Stat - Medical Decision Making CT is negative for anything acute except for incidental pansinusitis, which does not include the sphenoid sinus. He does not have symptoms of this, so it is likely chronic and no antibiotics are indicated at this time for it. His hands x-rays show no acute fractures. His fingers were claire taped, he was given ibuprofen and reassured, given instructions for supportive care. ED Disposition - Plan for ED Patient: Disposition: Home or Assisted Living Diagnosis: Fall from slip, trip, or stumble, Closed head injury without loss of consciousness, Sprain of left ring finger Instructions: HEAD INJURY, No Wake-Up (Adult), Sprain Finger Referrals: Naif Rojas MD [Primary Care Provider] - As Needed
[2018-12-23 11:40] VITALS: BP 148/61; PULSE 72; RESP 15; O2SAT 97
[2018-12-23] MEDS: Ibuprofen 600 MG Tablet PO (11:41)
== END 2018-12-23 11:43 | disposition home or self-care (01) ==
PROVIDERS: Emergency Provider Emergency Medicine; Family Provider Family Medicine; PCP Family Medicine
DX: S09.90XA Unspecified injury of head, initial encounter (principal); S63.615A Unspecified sprain of left ring finger, initial encounter; W01.0XXA Fall on same level from slipping, tripping and stumbling without subsequent striking against object, initial encounter; Z85.828 Personal history of other malignant neoplasm of skin; Z79.82 Long term (current) use of aspirin; F17.200 Nicotine dependence, unspecified, uncomplicated; F32.9 Major depressive disorder, single episode, unspecified; G89.29 Other chronic pain; I73.9 Peripheral vascular disease, unspecified; J32.4 Chronic pansinusitis; K21.9 Gastro-esophageal reflux disease without esophagitis; M19.90 Unspecified osteoarthritis, unspecified site; M54.9 Dorsalgia, unspecified; D50.9 Iron deficiency anemia, unspecified
CPT/HCPCS: 70450; 73130; 99283

== ENCOUNTER → 2018-12-29 14:03 | Outpatient (CLI) | payer MEDICARE, MEDICAID, SELFPAY ==
[2018-12-23 09:53] VITALS: BMI 17.9
[2018-12-29 15:35] LABS: Absolute Lymphocyte Count 2.49 X10^3/uL (0.83-4.51); Absolute Neutrophil Count 8.6 X10^3/uL (2.0-7.7); Basophil# 0.02 X10^3/uL; Basophil% 0.2 % (0-1); Eosinophil# 0.16 X10^3/uL; Eosinophils% 1.3 % (0-5); Hematocrit 32.3 % (40-54); Hemoglobin 10.3 g/dL (13.0-16.5); Lymphocyte # 2.49 X10^3/ul (4.0); Lymphocyte % 20.7 % (19-41); Mean Corp Hgb Conc 31.9 g/dL (32-36); Mean Corpuscular Hgb 30.1 pg (27.0-32.0); Mean Corpuscular Volume 94.4 fL (80-94); Mean Platelet Vol. 9.3 fl (6.2-12.0); Monocyte# 0.74 X10^3/uL; Monocyte% 6.1 % (0-10); NRBC Flagged by Analyzer 0 % (0-5); Neutrophil % 71.5 % (47-70); Platelet Count 530 K/mm3 (150-450); RBC Distribution Width CV 14.8 % (11.6-14.6); RBC Distribution Width SD 51.5 fl (35.1-43.9); Red Blood Count 3.42 M/mm3 (4.6-6.2)
[2018-12-29 15:56] LABS: Erythrocyte Sedimentation Rate 25 mm/hr (0-20)
[2018-12-29 16:11] LABS: Anion Gap 6 (5-15); BUN 16 mg/dL (7-18); BUN/Creat Ratio 13.4 RATIO (10-20); Calcium,Total 8.4 mg/dL (8.5-10.1); Chloride 111 mmol/L (98-107); Creatinine, Serum 1.19 mg/dL (0.70-1.30); EST Glomerular Filtration Rate 65 mL/min (>60); Est Glom Filt Rate - Afr Amer 79 mL/min (>60); Ferritin 18 ng/mL (26-388); Glucose 104 mg/dL (74-106); Iron 64 ug/dL (65-175); Potassium 4.2 mmol/L (3.5-5.1); Sodium Level 140 mmol/L (136-145)
== END ==
PROVIDERS: Family Provider Family Medicine; PCP Family Medicine; Visit Provider Family Medicine
DX: R79.82 Elevated C-reactive protein (CRP) (principal); D50.9 Iron deficiency anemia, unspecified; R19.7 Diarrhea, unspecified
CPT/HCPCS: 36415; 80048; 82728; 83540; 85025; 85652; 86140

== ENCOUNTER → 2019-02-06 10:17 | Outpatient (CLI) | payer MEDICARE, MEDICAID, SELFPAY ==
[2019-02-06 10:20] LABS: Mucous, Urine 0 SEEN /hpf (<or=2+); White Blood Cells 0 SEEN /hpf (0-5)
[2019-02-06 12:05] LABS: Absolute Lymphocyte Count 3.59 X10^3/uL (0.83-4.51); Absolute Neutrophil Count 2.9 X10^3/uL (2.0-7.7); Basophil# 0.02 X10^3/uL; Basophil% 0.3 % (0-1); Eosinophil# 0.15 X10^3/uL; Eosinophils% 2.1 % (0-5); Hematocrit 39.2 % (40-54); Hemoglobin 12.5 g/dL (13.0-16.5); Lymphocyte # 3.59 X10^3/ul (4.0); Lymphocyte % 49.2 % (19-41); Mean Corp Hgb Conc 31.9 g/dL (32-36); Mean Corpuscular Hgb 30.6 pg (27.0-32.0); Mean Corpuscular Volume 95.8 fL (80-94); Monocyte# 0.67 X10^3/uL; Monocyte% 9.2 % (0-10); NRBC Flagged by Analyzer 0 % (0-5); Neutrophil # 2.86 X10^3/uL (2.7-7.7); Neutrophil % 39.1 % (47-70); Platelet Count 283 K/mm3 (150-450); RBC Distribution Width CV 14.4 % (11.6-14.6); RBC Distribution Width SD 50.4 fl (35.1-43.9); Red Blood Count 4.09 M/mm3 (4.6-6.2); White Blood Count 7.3 K/mm3 (4.4-11.0)
[2019-02-06 12:07] LABS: Color, Urine Yellow (Yellow); Glucose, Dipstick Normal (Normal); Ketone-Dipstick 5 mg/dl (Negative); Leukocyte Esterase-Dipstick 100 /ul (Negative); Nitrite-Dipstick Negative (Negative); Occult Blood-Urine 10 /ul (Negative); Protein-Dipstick Negative (Negative); Specific Gravity, Urine 1.015 (1.002-1.030); Urine Bilirubin Dipstick Negative (Negative); Urine Clarity Sl. Cloudy (Clear); Urine Urobilinogen Normal (Normal)
[2019-02-06 12:20] LABS: Bacteria RARE /hpf (None Seen); Red Blood Cells-Urine 0-5 SEEN /hpf (0-5); Squamous Epithelial Cells - UA 0-5 SEEN /hpf (0-5)
[2019-02-06 12:48] LABS: Iron 153 ug/dL (65-175)
== END ==
PROVIDERS: Family Provider Family Medicine; PCP Family Medicine; Visit Provider Family Medicine
DX: D50.9 Iron deficiency anemia, unspecified (principal)
CPT/HCPCS: 36415; 81001; 83540; 85025

== ENCOUNTER 2019-06-18 15:19 | Emergency (ER) | payer MEDICARE, MEDICAID, SELFPAY ==
[2019-06-18 15:21] VITALS: BP 135/90; PULSE 85; RESP 18; TEMP 36.7; O2SAT 98; BMI 18.6
--- NOTE | 2019-06-18 15:52 | ED.VISSUMM ---
- ER Visit Summary Date of Service: 06/18/19 Chief Complaint: Sore throat and cough History of Present Illness: The patient is a 63 M who presents with sore throat and cough that has been getting worse over the past 3 days. Patient went to urgent care today and was told he had a temperature of 100.4 and was referred to the emergency department. Patient denies any sputum production. Patient denies any nausea or vomiting. Patient denies any chest pain. Patient denies any shortness of breath. Patient does admit to a headache but denies any weakness. Patient states nothing makes the lower throat and cough better or worse. Physical Examination: Vital signs are stable. Patient is afebrile here. Patient is in no acute distress. Oral mucosa is pink and moist. Oropharynx is mildly erythematous. Neck is supple. Trachea is midline. There is no JVD. There is some mild anterior cervical adenopathy. Heart was regular rate and rhythm. Lungs are clear and equal bilaterally. Abdomen is soft. Bowel sounds are normal. There is no tenderness. Cranial nerves II through XII are intact. There are no focal motor or sensory deficits noted. Test Results: Portable chest x-ray was obtained. There are chronic changes. There is no acute infiltrate. RSV, strep, and influenza swabs were obtained and were all negative. Emergency Department Course and Treatment: Patient was advised of his results. Patient was advised that this is most likely a viral pharyngitis. Due to the COVID-19 pandemic, patient was given COVID precautions. Patient was instructed to drink plenty of fluids. Patient was instructed to take Tylenol or ibuprofen as needed for pain or fever. Patient was instructed to follow-up with his primary care physician in 5 to 7 days. Patient understood and was agreeable with the plan. All questions were answered. Disposition: Discharge home Impression: Viral pharyngitis This note was generated with [employer] dictation software. It may contain incorrect words, spelling, and punctuation that were not noted in review of the chart prior to signing ED Disposition - Plan for ED Patient: Disposition: Home or Assisted Living Diagnosis: Viral pharyngitis Instructions: ED Pharyngitis Viral Referrals: Naif Rojas MD [Primary Care Provider] - 5-7 Days
--- NOTE | 2019-06-18 16:15 | RAD_ITS ---
STUDY: X-RAY CHEST REASON FOR EXAM: Male, 63 years old. sore throat with fever TECHNIQUE: AP portable COMPARISON: May 05, 2018 FINDINGS: There is prominence of the interstitial markings in both lower lobes. There is no acute infiltration.. There is no demonstrated pleural abnormality. Normal size heart. Normal mediastinum and ramila. Normal visualized pulmonary arteries. Mildly calcified aortic arch and descending thoracic aorta. Normal visualized thoracic spine. Normal visualized ribs, clavicles, and shoulders. There is no demonstrated abnormality of the visualized soft tissue structures of the upper abdomen. No significant change since prior exam RAD/Chest 1 View (Portable) IMPRESSION: Mild chronic interstitial changes. No acute disease Electronically Signed: Benoit Sanabria MD at 16:32 EDT , Service support ,
[2019-06-18 16:19] VITALS: BP 129/78; PULSE 81; RESP 22; TEMP 36.7; O2SAT 97
== END 2019-06-18 17:25 | disposition home or self-care (01) ==
PROVIDERS: Emergency Provider Emergency Medicine; PCP Family Medicine
DX: J02.8 Acute pharyngitis due to other specified organisms (principal); B97.89 Other viral agents as the cause of diseases classified elsewhere; Z72.0 Tobacco use
CPT/HCPCS: 71045; 87804; 87807; 87880; 99282

== ENCOUNTER → 2019-07-31 | Outpatient (CLI) | payer MEDICARE, MEDICAID, SELFPAY ==
[2019-07-31 16:38] LABS: Absolute Lymphocyte Count 2.72 X10^3/uL (0.83-4.51); Absolute Neutrophil Count 4.7 X10^3/uL (2.0-7.7); Basophil# 0.03 X10^3/uL; Basophil% 0.4 % (0-1); Eosinophil# 0.13 X10^3/uL; Eosinophils% 1.6 % (0-5); Hematocrit 42.3 % (40-54); Hemoglobin 13.8 g/dL (13.0-16.5); Lymphocyte # 2.72 X10^3/ul (4.0); Lymphocyte % 33.3 % (19-41); Mean Corp Hgb Conc 32.6 g/dL (32-36); Mean Corpuscular Hgb 30.9 pg (27.0-32.0); Mean Corpuscular Volume 94.8 fL (80-94); Mean Platelet Vol. 10.2 fl (6.2-12.0); Monocyte# 0.59 X10^3/uL; Monocyte% 7.2 % (0-10); NRBC Flagged by Analyzer 0 % (0-5); Neutrophil # 4.69 X10^3/uL (2.7-7.7); Neutrophil % 57.3 % (47-70); Platelet Count 305 K/mm3 (150-450); RBC Distribution Width CV 13.2 % (11.6-14.6); RBC Distribution Width SD 45.5 fl (35.1-43.9); Red Blood Count 4.46 M/mm3 (4.6-6.2); White Blood Count 8.2 K/mm3 (4.4-11.0)
[2019-07-31 16:54] LABS: Ferritin 43 ng/mL (26-388); Iron 66 ug/dL (65-175)
== END | disposition home or self-care (01) ==
PROVIDERS: PCP Family Medicine; Visit Provider Family Medicine
DX: D50.9 Iron deficiency anemia, unspecified (principal)
CPT/HCPCS: 36415; 82728; 83540; 85025

== ENCOUNTER → 2019-11-12 | Outpatient (CLI) | payer MEDICARE, MEDICAID, SELFPAY ==
--- NOTE | 2019-11-12 09:01 | ART_ITS ---
Reason For Study: decreased pedal pulses Procedure A bilateral lower extremity continuous wave Doppler with analog waveform analysis,segmental pressures,and ankle brachial indexes with exercise. Left Segmental Pressures Left brachial= 137mmHg. Left posterior tibial artery = 144mmHg. Left dorsalis pedis artery = 128mmHg. The left dorsalis pedis waveforms are triphasic. The left posterior tibial artery waveforms are triphasic. Right Segmental Pressures Right brachial= 129mmHg. Right posterior tibial artery = 144mmHg. Right dorsalis pedis artery = 144mmHg. The right dorsalis pedis waveforms are triphasic. The right posterior tibial artery waveforms are triphasic. Indices The right ankle brachial index by the dorsalis pedis is 1.04. The right ankle brachial index by the posterior tibial artery is 1.05. The right post exercise ankle brachial index is .81. The left ankle brachial index by the dorsalis pedis is .93. The left ankle brachial index by the posterior tibial artery is 1.05. The left post exercise ankle brachial index is .84. Interpretation Summary Normal bilateral lower extremity ankle-brachial indices at rest with normal triphasic waveforms. Abnormal bilateral lower extremity response to exercise with immediate drop in ankle-brachial index and recovery bilaterally by 5 minutes consistent with vascular claudication. Location of the stenosis cannot be identified. Ordering Physician: Kevin Long Performed By: IRMA BOSTON T
== END | disposition home or self-care (01) ==
LOC: CVS 09:00
PROVIDERS: PCP Family Medicine; Referring Provider Surgery; Visit Provider Surgery
DX: I73.9 Peripheral vascular disease, unspecified (principal)
CPT/HCPCS: 93924

== ENCOUNTER 2019-11-19 10:37 | Emergency (ER) | payer MEDICARE, MEDICAID, SELFPAY ==
[2019-11-19 10:38] VITALS: BP 128/91; PULSE 85; RESP 16; TEMP 36.4; O2SAT 99; BMI 19.3
--- NOTE | 2019-11-19 11:40 | ED.VIS.GEN ---
History of Present Illness Chief Complaint: Back Informant: Patient Narrative: C4-year-old male presenting with back pain. 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 He is able to ambulate but states that it hurts. He tried nothing for pain prior to arrival. He has no loss of bladder or bowel control. No saddle paresthesia. No direct trauma to the back. He has no paresthesias. - Past Medical History (1) Anxiety Status: Chronic (2) PAD (peripheral artery disease) Status: Chronic (3) Chronic back pain Status: Chronic Past Medical History - Allergies and Home Meds Allergies/Adverse Reactions: Allergies buspirone [From BuSpar] Allergy (Mild, Verified 11/19/19 10:38) shaking, restless legs sucralfate [From Carafate] Allergy (Verified 11/19/19 10:38) Other jaw locked up venom-honey bee [bee venom (honey bee)] Allergy (Verified 11/19/19 10:38) Anaphylaxis Primary Care Physician: Naif Rojas MD [Primary Care Provider] - Prior records reviewed: Yes Past Medical History: - - Reviewed in problem list Lives: Alone Smoking Status: Current every day smoker Alcohol: None Drugs: None Review of Systems General: Denies: Chills, Fever, Sweats Eyes: Denies: Visual changes - bilaterally, Diplopia ENT: Denies: Rhinorrhea, Sore throat Cardiovascular: Denies: Chest pain, Palpitations Respiratory: Denies: Dyspnea, Cough, Dyspnea on exertion Gastrointestinal: Denies: Abdominal pain, Nausea, Vomiting, Diarrhea, Melena, Hematochezia Genitourinary: Denies: Dysuria, Hematuria, Frequency Musculoskeletal: Reports: Back pain, Extremity Pain Skin: Denies: Rash, Wounds Neurological: Denies: Headache, Weakness, Numbness Physical Exam Vital Signs/Narrative: Vital Signs Temp Pulse Resp BP Pulse Ox 11/19/19 10:38 97.5 F L 85 16 128/91 H 99 General: Well nourished, Well developed, No Acute Distress Eyes: Perrl, EOMI ENT: Moist mucous membranes, No rhinorrhea Cardiovascular: Regular rate, Regular rhythm Respiratory: No distress Back: - - Bilateral paraspinal musculature tenderness. No midline spinal deformity or step-off.. Negative for: Spinal tenderness Extremities: Nontender, No edema Skin: Normal color, No rash Neurological: Alert, Oriented x3 Psychological: Normal affect, Normal Mood Diagnostic/Tx/Re-eval - Medical Decision Making Patient presents with nontraumatic back pain. He is ambulatory. He is tried nothing for pain prior to arrival. I did give him a Lidoderm patch and a shot of Toradol. He will be given Flexeril and he has 600 mg ibuprofens at home. I also placed him on a 2-day burst of prednisone. Patient amenable this plan. He is discharged in stable condition. Impression: 1. Lumbar strain ED Disposition - Plan for ED Patient: Disposition: Home or Assisted Living Instructions: ED LUMBAR SPRAIN/STRAIN Prescriptions: Cyclobenzaprine HCl 10 mg PO Q8H PRN PRN #20 tab PRN Reason: pain Transmission Status: Received by [facility] Prednisone [Deltasone] 60 mg PO DAILY #6 tab Transmission Status: Received by [facility] Referrals: Naif Rojas MD [Primary Care Provider] -
[2019-11-19] MEDS: predniSONE 20 MG Tablet 60 MG PO (11:54)
[2019-11-19] MEDS: Lidocaine 5% Patch 1 PATCH TOPICAL (11:54)
[2019-11-19] MEDS: Ketorolac 15 MG/ML Vial IM (11:54)
[2019-11-19 12:02] VITALS: BP 119/74; PULSE 62; RESP 15; O2SAT 98
== END 2019-11-19 12:03 | disposition home or self-care (01) ==
LOC: ED 11:44
PROVIDERS: Emergency Provider Student in an Organized Health Care Education/Training Program; PCP Family Medicine
DX: S39.012A Strain of muscle, fascia and tendon of lower back, initial encounter (principal); I73.9 Peripheral vascular disease, unspecified; F41.9 Anxiety disorder, unspecified; F17.200 Nicotine dependence, unspecified, uncomplicated; Z79.899 Other long term (current) drug therapy; X50.1XXA Overexertion from prolonged static or awkward postures, initial encounter; Y93.89 Activity, other specified; Y92.89 Other specified places as the place of occurrence of the external cause; Y99.8 Other external cause status
CPT/HCPCS: 96372; 99283

== ENCOUNTER → 2019-11-30 | Outpatient (CLI) | payer MEDICARE, MEDICAID, SELFPAY ==
[2019-11-27 16:08] VITALS: BMI 18.6
== END | disposition home or self-care (01) ==
LOC: MTDU 17:49
PROVIDERS: PCP Family Medicine; Visit Provider Family Medicine
DX: Z03.818 Encounter for observation for suspected exposure to other biological agents ruled out (principal)
CPT/HCPCS: 87635; C9803; U0003

== ENCOUNTER → 2019-12-17 | Outpatient (CLI) | payer MEDICARE, MEDICAID, SELFPAY ==
--- NOTE | 2019-12-16 14:40 | LES_PTH ---
PATIENT: LEIGH WALTERS LOC: [facility]#:[id number] AGE/SX: 64/M ROOM: RE12/17/[address]: Dr. Kevin Long MD : 1955 BED: DIS: 12/17/2019 SPEC #: [id number] RECD: 12/17/19 11:23 STATUS: OSMAN REKleber #: [id number] RACHEL: 12/16/19 14:[address]: Kevin Long DEPT: SURGICAL PATHOLOGY RECD BY: Yessi Stuart ENTERED: 12/17/19 12:01 SP TYPE: Lesion OTHR DR: Dr. Naif Rojas MD Tissues: Skin of nose, NOS Procedures: Surgery Specimen Level IV HEADER OPERATION: Excision nose lesion PRE-OP DIAGNOSIS: Neoplasm face TISSUE SUBMITTED: Nose tissue MICROSCOPIC DIAGNOSIS Nose lesion, biopsy: Actinic keratosis with mild atypia, solar elastosis and sebaceous gland hyperplasia. Negative for malignancy. See comment. SJ:kristal 12/18/19 COMMENT Clinical correlation and appropriate follow up are necessary. MICROSCOPIC DESCRIPTION Slides are reviewed. GROSS DESCRIPTION Received in fixative is one container labeled with the patient's name and designated nose. The specimen consists of a light stanley excised skin fragment measuring 1.2 x 0.6 x 0.2 cm. The specimen is inked, bisected and totally submitted in one cassette. / AM:kristal 12/17/19 TC:5 CPT: 12430
== END | disposition home or self-care (01) ==
PROVIDERS: PCP Family Medicine; Referring Provider Surgery; Visit Provider Surgery
DX: L57.0 Actinic keratosis (principal); L57.8 Other skin changes due to chronic exposure to nonionizing radiation
CPT/HCPCS: 88305

== ENCOUNTER → 2020-03-02 08:50 | Outpatient (CLI) | payer MEDICARE, MEDICAID, SELFPAY ==
[2020-03-02 12:42] LABS: Absolute Lymphocyte Count 3.59 X10^3/uL (0.83-4.51); Absolute Neutrophil Count 4.6 X10^3/uL (2.0-7.7); Basophil# 0.04 X10^3/uL; Basophil% 0.4 % (0-1); Eosinophils% 2.2 % (0-5); Hematocrit 42.3 % (40-54); Hemoglobin 13.5 g/dL (13.0-16.5); Lymphocyte # 3.59 X10^3/ul (4.0); Lymphocyte % 38.9 % (19-41); Mean Corp Hgb Conc 31.9 g/dL (32-36); Mean Corpuscular Hgb 30.1 pg (27.0-32.0); Mean Corpuscular Volume 94.4 fL (80-94); Mean Platelet Vol. 10.3 fl (6.2-12.0); Monocyte# 0.73 X10^3/uL; Monocyte% 7.9 % (0-10); NRBC Flagged by Analyzer 0 % (0-5); Neutrophil # 4.64 X10^3/uL (2.7-7.7); Neutrophil % 50.2 % (47-70); Platelet Count 321 K/mm3 (150-450); RBC Distribution Width CV 13.7 % (11.6-14.6); RBC Distribution Width SD 47.7 fl (35.1-43.9); Red Blood Count 4.48 M/mm3 (4.6-6.2); White Blood Count 9.2 K/mm3 (4.4-11.0)
[2020-03-02 12:44] LABS: AST(SGOT) 16 U/L (15-37); Alanine Aminotransfer ALT/SGPT 18 U/L (16-61); Albumin, Serum 3.7 g/dL (3.2-5.0); Alkaline Phosphatase 80 U/L (45-117); Anion Gap 6 (5-15); BUN 21 mg/dL (7-18); BUN/Creat Ratio 17.5 RATIO (10-20); Calcium,Total 8.6 mg/dL (8.5-10.1); Chloride 105 mmol/L (98-107); EST Glomerular Filtration Rate 64 mL/min (>60); Est Glom Filt Rate - Afr Amer 78 mL/min (>60); Ferritin 48 ng/mL (26-388); Globulin 3.8 g/dL (2.2-4.2); Glucose 84 mg/dL (74-106); Iron 78 ug/dL (65-175); Potassium 4.5 mmol/L (3.5-5.1); Protein, Total 7.5 g/dL (6.4-8.2); Sodium Level 135 mmol/L (136-145); Thyroid Stim Hormone (TSH) 1.53 uIU/mL (0.358-3.74)
[2020-03-02 13:00] LABS: Vitamin B12 1084 pg/mL (211-911)
== END ==
PROVIDERS: PCP Family Medicine; Visit Provider Family Medicine
DX: D50.9 Iron deficiency anemia, unspecified (principal); B18.2 Chronic viral hepatitis C; F10.20 Alcohol dependence, uncomplicated; F32.9 Major depressive disorder, single episode, unspecified
CPT/HCPCS: 36415; 80053; 82607; 82728; 83540; 84443; 85025

== ENCOUNTER → 2020-03-29 14:08 | Outpatient (CLI) | payer MEDICARE, MEDICAID, SELFPAY ==
--- NOTE | 2020-03-29 14:12 | CT_ITS ---
STUDY: LOW DOSE CT LUNG CANCER SCREENING REASON FOR EXAM: Male, 64 years old. LUNG SCREENING, KA=938, 2 PPD X 50 YRS, PAD RADIATION DOSAGE (If Supplied By Facility): CTDIvol = ( 2.01 ) mGy, DLP = ( 73.74 ) mGycm TECHNIQUE: No contrast was administered. Low dose technique was utilized (average mAS-38 and kVp 120). 1.25 mm axial source images with a slice interval of 1.25-mm were reconstructed in lung windows. 2.5 mm axial source images with a slice interval of 2.5-mm were reconstructed in lung windows. 5.0 mm axial source images with a slice interval of 5.0-mm were reconstructed in soft tissue windows. Nodule measured using lung windows on PACS and/or independent workstation with automated measurement of minimum and maximum diameter. Nodule measurement reported as average diameter rounded to the nearest whole number. Growth is defined as an increase ins size of greater than 1.5 mm. COMPARISON: None. NODULES: There is a 1.7 cm x 0.6 cm irregular nodular density in the posterior medial aspect of the right lung apex. This is pleural based. This may represent a focal area of scarring although a neoplastic process cannot be ruled out. Correlation with a PET scan or follow-up examination in 3 months is recommended. Emphysema: Hyperinflation. Diffuse emphysematous changes worse in the upper lobes with evidence of a bullous formation. Mild scarring at the lung bases. Endobronchial lesion: None Aorta: Atherosclerotic plaque formation of the aortic arch. Coronary arteries: Coronary artery calcification. Heart: Unremarkable Pulmonary artery: Unremarkable Mediastinal nodes: Small mediastinal lymph nodes. Other chest and abdominal findings: CT/Low Dose CT Lung Screening IMPRESSION: Lung-RADS category 4A - Screening at 3 months wiht LDCT or evaluation with PET/CT may be used. IMPORTANT NOTES FOR USE: ACR Lung-RADS Version 1.0 Assessment Categories Release Date: June 08, 2013 Category: Coded 0-4 bases on nodule(s) with highest degree of suspicion. Negative screen is defined as categories 1 and 2; a positive screen is defined as categories 3 and 4. Category 3 and 4A nodules that are unchanged on interval CT should be coded as category 2, and individuals returned to screening in 12 months. Category 4X: Category 3 or 4 nodules with additional imaging findings that increase the suspicion of lung cancer, such as spiculation, GGN that doubles in size in 1 year, enlarged lymph notes, etc. Category Modifiers: S (significant finding unrelated to lung cancer) and C (prior history of treated lung cancer) may be added to the 0-4 Lung-RADS Electronically Signed: Ruben Ramsay MD at 14:43 EST , Service support ,
== END ==
PROVIDERS: PCP Family Medicine; Referring Provider Nurse Practitioner Family; Visit Provider Nurse Practitioner Family
DX: F17.210 Nicotine dependence, cigarettes, uncomplicated (principal); Z12.2 Encounter for screening for malignant neoplasm of respiratory organs
CPT/HCPCS: 71271

== ENCOUNTER → 2020-04-19 14:10 | Outpatient (CLI) | payer MEDICARE, MEDICAID, SELFPAY ==
--- NOTE | 2020-04-19 15:00 | PET_ITS ---
EXAMINATION: FDG PET/CT INDICATIONS: A 64-year-old male with history of pulmonary nodularity. COMPARISON EXAMINATION: CT of the chest report dated 03/29/20 TECHNIQUE: Following the intravenous administration of 15.5 mCi of F-18 deoxyglucose via the right antecubital fossa, multiplanar image acquisitions of the neck, chest, abdomen and pelvis to level of mid thigh, obtained at one hour post radiopharmaceutical administration contemporaneously interpreted with the current CT of the neck, chest, abdomen and pelvis to level of mid thigh, dated 04/19/[address] of the chest report dated 03/29/20 reveal: SERUM GLUCOSE LEVEL: 92 mg/dl. HEIGHT: 70 inches. WEIGHT: 230 lbs. FINDINGS: 1. There is no quantitative scintigraphic evidence of abnormal increased glucose metabolism within the context of the bilateral upper lung longoria (R-L upper lobes) to correlate with structural changes noted on review of CT of the thorax dated 04/19/20. 2. Normal physiologic distribution of the radiopharmaceutical is apparent in the hepatic and splenic parenchyma, both renal units, bladder and visualized intestinal tract. The visualized portion of the cerebral cortical-subcortical structures demonstrate symmetric and preserved glucose metabolism. Symmetric radiopharmaceutical concentration which appears associated with the buccinator musculature is most consistent with muscle tension artifact. Prominent radiopharmaceutical concentration is observed in the left ventricular myocardium commensurate with the [place]. Pertinent CT findings are as follows: CHEST: Parenchymal densities defined in the bilateral apical lung zones demonstrate no evidence of quantitatively significant increased FDG uptake as previously described. Emphysematous changes are noted in the bilateral upper lung zones. There is atherosclerotic calcification defined in the thoracic aorta without evidence of dilatation-aneurysm formation. Coronary arterial calcification is observed. Bilateral axillary soft tissue densities with fatty hilus are ametabolic. ABDOMEN AND PELVIS: The gallbladder appears surgically absent. There is atherosclerotic calcification defined in the abdominal aorta without evidence of dilatation-aneurysm formation. There is evidence of bi-iliac graft placement. Pelvic arterial calcification is observed. Calcification is observed in the left kidney. Subcentimeter right and left inguinal soft tissue densities are non-glucose avid. SKELETAL: Degenerative changes are noted in the cervical, thoracic and lumbar spine without evidence of increased radiopharmaceutical concentration. PET/PET/CT Tumor Base -Thigh Init IMPRESSION: 1. NEGATIVE EXAMINATION. There is no quantitative scintigraphic evidence of abnormal increased glucose metabolism within the context of the bilateral upper lung longoria (R-L upper lobes) to correlate with structural changes noted on review of CT of the thorax dated 04/19/20. 2. Anatomic stability may be ensured in the bilateral lung nonglucose avid parenchymal densities, with repeat CT of the thorax in 3-6 months. (Brian, Seminars in Thoracic and Cardiovascular Surgery 14:292, 2002). Electronic Signature Roel Dominguez D.O. Accurate Quantification of SUVs for this report are calculated using the exclusive [employer]? Technology.??Exclusive [place].S. Patent [employer]? Technology (U.S. Patent No. [phone]). Electronically Signed: Roel Dominguez DO at 22:27 EST Tel , Service support ,
== END ==
PROVIDERS: PCP Family Medicine; Referring Provider Internal Medicine Critical Care Medicine; Visit Provider Internal Medicine Critical Care Medicine
DX: R91.1 Solitary pulmonary nodule (principal)
CPT/HCPCS: 78815; A9552

== ENCOUNTER → 2020-04-21 13:11 | Outpatient (CLI) | payer MEDICARE, MEDICAID, SELFPAY ==
[2020-04-21 13:30] VITALS: PULSE 81; PULSE 85; PULSE 94; PULSE 95; PULSE 96; O2SAT 91; O2SAT 92; O2SAT 93; O2SAT 95
--- NOTE | 2020-04-22 09:57 | WT_ITS ---
PSN 6 Minute Walk Test - 6 Minute Walk Test 6 Minute Walk Test: 6 Minute Walk Test PSN:6-Minute Walk Test Start: 04/21/20 13:40 Freq: Status: Active Protocol: RESP.6MINW Document 04/21/20 13:30 [facility] (Rec: 04/21/20 13:45 [facility] [id number]) 6 Minute Walk Test Date Performed 04/21/20 Time Performed 13:30 Height 5 ft 10 in Weight: 133 lb Weight in Pounds 133.[address]: Dr Hare Assistive device used: None Pre-test Oxygen Delivery Method Room Air Pulse Ox (%) 95 Pulse Rate (60-100 beats/min) 85 Dyspnea Teo Scale (0-10) 0.5 Exertion Teo Scale (6-20) 6 1st minute Oxygen Delivery Method Room Air Pulse Ox (%) 93 Pulse Rate (60-100 beats/min) 96 2nd minute Oxygen Delivery Method Room Air Pulse Ox (%) 93 Pulse Rate (60-100 beats/min) 96 3rd minute Oxygen Delivery Method Room Air Pulse Ox (%) 92 Pulse Rate (60-100 beats/min) 95 4th minute Oxygen Delivery Method Room Air Pulse Ox (%) 91 Pulse Rate (60-100 beats/min) 94 5th minute Oxygen Delivery Method Room Air Pulse Ox (%) 91 Pulse Rate (60-100 beats/min) 94 6th minute Oxygen Delivery Method Room Air Pulse Ox (%) 93 Pulse Rate (60-100 beats/min) 95 Dyspnea Teo Scale (0-10) 2 Exertion Teo Scale (6-20) 8 Post-test Oxygen Delivery Method Room Air Pulse Ox (%) 95 Pulse Rate (60-100 beats/min) 81 Full Laps Walked 18 Partial Lap, Number of Tiles Walked 30 Total Distance Walked (ft) 1092 - Interpretation Interpretation: The patient ambulated 1092 feet over the course of 6 minutes beginning on room air without assistive devices or breaks. Pretesting oxygen saturation was noted to be 95% on room air. With ambulation, the shabbir oxygen saturation was 91%. This represents a significant exertional oxygen desaturation. - Recommendations Recommendations: There is no indication for the use of supplemental oxygen at this time. However, close interval follow-up is recommended, given the degree of oxygen desaturation noted during the study.
== END ==
PROVIDERS: PCP Family Medicine; Referring Provider Internal Medicine Critical Care Medicine; Visit Provider Internal Medicine Critical Care Medicine
DX: F17.210 Nicotine dependence, cigarettes, uncomplicated (principal)
CPT/HCPCS: 94618

== ENCOUNTER → 2020-05-03 06:59 | Outpatient (CLI) | payer MEDICARE, MEDICAID, SELFPAY ==
[2020-05-02 11:12] VITALS: BMI 18.7
--- NOTE | 2020-05-04 10:07 | PFT ---
INTRODUCTION: The patient is a 64-year-old male that presents for pulmonary function studies secondary to a diagnosis of pulmonary nodule. Respiratory therapy reports good patient effort. Bronchodilators were used during testing. INTERPRETATION: Forced expiration spirometry demonstrates the presence of a mild large airways obstructive ventilatory defect. There was a significant response to aerosolized bronchodilators noted. Spirograms are of good quality and plateau gradually indicating slow emptying of the lungs. Body plethysmography was performed and reveals lung volumes to be within normal limits. Diffusing capacity by single breath CO is reduced at 64% of predicted. IMPRESSION: Partially reversible mild large airways obstructive ventilatory defect with symmetric reduction in diffusing capacity.
== END ==
PROVIDERS: PCP Family Medicine; Referring Provider Internal Medicine Critical Care Medicine; Visit Provider Internal Medicine Critical Care Medicine
DX: F17.210 Nicotine dependence, cigarettes, uncomplicated (principal)
CPT/HCPCS: 94060; 94726; 94729

== ENCOUNTER 2020-05-19 22:21 | Emergency (ER) | payer MEDICARE, MEDICAID, SELFPAY ==
[2020-05-02 11:12] VITALS: BMI 18.7
[2020-05-19 22:22] VITALS: BP 166/95; PULSE 94; RESP 16; TEMP 36.3; O2SAT 99; BMI 18.3
--- NOTE | 2020-05-19 22:25 | ED.VIS.GEN ---
History of Present Illness Chief Complaint: Overdose Narrative: Patient presents after being resuscitated with 4 mg of Narcan. He was unresponsive with agonal respirations and improved with intranasal Narcan. He is now lucid and coherent. He admits to snorting heroin. He denies any injections. He tells me he had a tough week and just wanted to relax. Past medical history: Depression anxiety Medications: Antidepressants otherwise no other medications Social history: As above Review of systems: All systems negative except as indicated General: Denies: Fever Eyes: Denies: Visual changes - bilaterally ENT: Denies: Rhinorrhea, Sore throat Cardiovascular: Denies: Chest pain Respiratory: Denies: Dyspnea, Cough Gastrointestinal: Denies: Abdominal pain, Nausea, Vomiting Genitourinary: Denies: Dysuria Musculoskeletal: Denies: Myalgias Skin: Denies: Rash Neurological: Denies: Headache, no focal weakness Psych: He admits to anxiety and depression. He denies any suicidal ideations. Hematologic: Denies: Easy bruising, Easy bleeding Physical exam General: Patient does not appear in any distress. Head: Normocephalic, Atraumatic Eyes: Conjunctiva not pale ENT: Moist mucous membranes Neck: Supple, Nontender, No lymphadenopathy Cardiovascular: Regular rate, Regular rhythm Respiratory: No distress, CTA bilaterally Abdomen: Soft, Nontender, Nondistended Back: Nontender, Normal Inspection. Negative for: CVA tenderness Extremities: Nontender, No edema. No track moses Skin: Normal color, No rash Neurological: Alert, Normal Strength, Normal Sensation Psychological: He seems somewhat remorseful. Past Medical History - Allergies and Home Meds Allergies/Adverse Reactions: Allergies buspirone [From BuSpar] Allergy (Mild, Verified 05/02/20 11:13) shaking, restless legs sucralfate [From Carafate] Allergy (Verified 05/02/20 11:13) Other jaw locked up venom-honey bee [bee venom (honey bee)] Allergy (Verified 05/02/20 11:13) Anaphylaxis Primary Care Physician: Naif Rojas MD [Primary Care Provider] - Smoking Status: Current every day smoker Physical Exam Vital Signs/Narrative: Vital Signs Temp Pulse Resp Pulse Ox 05/19/20 22:22 97.3 F L 94 16 99 Diagnostic/Tx/Re-eval - Medical Decision Making Had a conversation with the patient at this time he does not feel like he needs detox he rarely uses heroin. I encouraged him to quit heroin altogether and otherwise I will discharge him in stable condition. ED Disposition - Plan for ED Patient: Disposition: Home or Assisted Living Diagnosis: Heroin overdose Instructions: ED Overdose, Opiate Referrals: Naif Rojas MD [Primary Care Provider] - 3-5 Days
--- NOTE | 2020-05-19 22:33 | ED.DEP ---
ED Disposition - Plan for ED Patient: Disposition: Home or Assisted Living Diagnosis: Heroin overdose Instructions: ED Overdose, Opiate Referrals: Naif Rojas MD [Primary Care Provider] - 3-5 Days
[2020-05-19 22:57] VITALS: BP 141/96; PULSE 73; RESP 16; O2SAT 95
== END 2020-05-19 23:01 | disposition home or self-care (01) ==
LOC: ED 22:39
PROVIDERS: Emergency Provider Emergency Medicine; PCP Family Medicine
DX: T40.1X1A Poisoning by heroin, accidental (unintentional), initial encounter (principal); F17.200 Nicotine dependence, unspecified, uncomplicated; F41.9 Anxiety disorder, unspecified; F32.9 Major depressive disorder, single episode, unspecified; Z79.899 Other long term (current) drug therapy
CPT/HCPCS: 99284

== ENCOUNTER → 2020-05-24 12:43 | Outpatient (CLI) | payer MEDICARE, MEDICAID, SELFPAY ==
[2020-05-19 22:22] VITALS: BMI 18.3
--- NOTE | 2020-05-24 12:45 | RAD_ITS ---
STUDY: X-RAY CHEST REASON FOR EXAM: Male, 64 years old. Chest pain following recent CPR. TECHNIQUE: PA and lateral views of the chest. COMPARISON: Comparison is made with prior study dated 06/18/2019. FINDINGS: Mild increased markings in the posterior medial segment of the left lower lobe. Early infiltrate should be ruled out. There is no demonstrated pleural abnormality. Normal size heart. Normal mediastinum and ramila. Normal visualized pulmonary arteries. There is atherosclerotic calcification of the aortic arch with tortuosity. There are diffuse degenerative changes of the visualized thoracic spine. Normal visualized ribs, clavicles, and shoulders. There is no demonstrated abnormality of the visualized soft tissue structures of the upper abdomen. RAD/Chest PA and Lateral IMPRESSION: Mild increased markings in the posterior medial segment of the left lower lobe. Follow-up is recommended. Electronically Signed: Ruben Ramsay MD at 13:11 EDT , Service support ,
--- NOTE | 2020-05-24 12:47 | RAD_ITS ---
STUDY: X-RAY - UNILATERAL RIBS ( RIGHT ) REASON FOR EXAM: Male, 64 years old. CPR 5 DAYS AGO, CHEST WALL PAIN ON RIGHT SIDE TECHNIQUE: 4 view(s) of the ribs. COMPARISON: None. FINDINGS: There is diffuse osteopenia. The visualized lung is clear and expanded. RAD/Ribs Unil 2V No CXR IMPRESSION: No demonstrated rib fracture. Limited by degree of osteopenia. Electronically Signed: Leonardo García MD ([place]) at 14:14 EDT , Service support ,
== END ==
PROVIDERS: PCP Family Medicine; Referring Provider Family Medicine; Visit Provider Family Medicine
DX: J44.1 Chronic obstructive pulmonary disease with (acute) exacerbation (principal); R07.89 Other chest pain
CPT/HCPCS: 71046; 71100

== ENCOUNTER → 2020-07-15 15:24 | Outpatient (CLI) | payer MEDICARE, SELFPAY ==
--- NOTE | 2020-07-15 15:29 | RAD_ITS ---
HISTORY: FOLLOW UP - PNEUMONIA. TECHNIQUE: XR Chest 2 Views. # of images incl. paperwork: 2. COMPARISON: 05/24/2020. FINDINGS: CARDIOMEDIASTINAL STRUCTURES: Cardiac silhouette not enlarged. Mediastinal contour unchanged with calcification of the aorta. LUNGS: Hyperinflation with chronic coarse interstitial markings suggesting COPD. Calcified granuloma in the right upper lobe. Unchanged left lower lobe opacity. PLEURA: No pleural effusion or pneumothorax. OSSEOUS STRUCTURES: Degenerative change. RAD/Chest PA and Lateral IMPRESSION: Unchanged chronic left lower lobe opacity. at 1247 Reported and signed by: Farrah Luo MD Electronically Signed: Farrah Luo MD at 12:46 EDT Tel , Service support ,
== END ==
LOC: MTLAB 15:27 → MTRAD 15:28
PROVIDERS: PCP Family Medicine; Referring Provider Family Medicine; Visit Provider Family Medicine
DX: J18.9 Pneumonia, unspecified organism (principal)
CPT/HCPCS: 71046

== ENCOUNTER → 2020-08-18 12:52 | Outpatient (CLI) | payer MEDICARE, MEDICAID, SELFPAY ==
--- NOTE | 2020-08-18 12:53 | CT_ITS ---
STUDY: CT CHEST WITHOUT CONTRAST REASON FOR EXAM: Male, 64 years old. f/u lung nodules and tobacco dependency RADIATION DOSAGE (If Supplied By Facility): CTDIvol = ( 7.16 ) mGy, DLP = ( 281.10 ) mGycm TECHNIQUE: Transaxial imaging was performed without the administration of intravenous contrast material. Multiplanar coronal and sagittal images were reformatted. Individualized dose optimization techniques were used for this CT. COMPARISON: Comparison is made with prior examination dated 03/29/2020. FINDINGS: Stable 1.6 cm x 0.64 cm irregular nodular density in the posterior medial aspect of the right lung apex as seen on axial image #18. This most likely represents focal area of scarring. Hyperinflation. Diffuse emphysematous changes with centrilobular changes more prominent in the upper lobes. There are calcifications of the coronary arteries. There are multiple small lymph nodes within the mediastinum, which are normal in size and morphology most compatible with reactive lymph hyperplasia. Normal hilar regions. Normal unenhanced pulmonary arteries. There is atherosclerotic calcification of the aortic arch . There are multi-level degenerative changes of the thoracic spine. There is no demonstrated abnormality of the visualized upper abdomen. CT/Chest without Contrast IMPRESSION: Stable examination. Electronically Signed: Ruben Ramsay MD at 13:53 EDT , Service support ,
== END ==
PROVIDERS: PCP Family Medicine; Referring Provider Internal Medicine Critical Care Medicine; Visit Provider Internal Medicine Critical Care Medicine
DX: R91.1 Solitary pulmonary nodule (principal)
CPT/HCPCS: 71250

== ENCOUNTER → 2020-09-01 10:24 | Outpatient (CLI) | payer MEDICARE, MEDICAID, SELFPAY ==
[2020-08-24 08:58] VITALS: BMI 17.6
--- NOTE | 2020-09-01 10:27 | STEWCON_ITS ---
Reason For Study: CAD Stress Results Protocol: Rodríguez Protocol WITH DEFINITY Maximum Predicted HR: 154 bpm Target HR: 131 bpm % Maximum Predicted HR: 81 % DurationHeart Rate Stage (mm:ss) (bpm) BP Comment Baseline 81 122/68No Chest Pain; 4.5 ML Diluted Definity Rodríguez Protocol Stage I 3:00 98 124/60No Chest Pain Rodríguez Protocol Stage II 3:00 105 136/70No Chest Pain; Mild Dyspnea Rodríguez Protocol Stage III 3:00 114 138/72No Chest Pain; Mild Dyspnea Rodríguez Protocol Stage IV 1:31 125 / No Chest Pain; Mod Dyspnea; Soft Exp Wheezes Recovery 94 120/66No Chest Pain; No Dyspnea Stress Duration: 10:31 mm:ss Maximum Stress HR: 125 bpm METS: 13 Baseline Echocardiogram Findings Stress Echo Wall motion Data Resting WM Intermediate WM Stress WM ECHO/Stress Test Echo W/Contrast Interpretation Summary Exercise stress echo. 64-year-old man with a history of carotid artery stenosis. Stress protocol: Resting EKG demonstrates normal sinus rhythm with a rate of 78 bpm normal inter vals are noted resting blood pressure is 122/68 mmHg. The patient exercised according to regul ar Rodríguez protocol for total duration of 10 minutes and 31 seconds. The patient completed 1 minute and 31 seconds into stage IV of the Rodríguez protocol. The maximum heart rate attained was 125 bpm whi ch was 81% of max impact her heart rate the maximum workload was 13.4 metabolic equivalents. At r est there were no ST or T wave changes noted to suggest ischemia and at peak exercise upsloping ST c hanges were noted with did not meet the criteria for ischemia. The resting blood pressure was 122 /68 with a peak blood pressure 138/72 mmHg and a rate-pressure product of 15,700. Good and normal blo od pressure response was noted to exercise. Stress protocol: Resting echocardiogram was performed with Definity enhancement the estimated ej ection fraction was 55%. At peak exercise with Definity enhancement there was thickening of all wal ls and reduction of low ventricular cavity size peaking of ejection fraction is 70%. No wall motion abnormalities were noted to suggest ischemia. Conclusion: Normal exercise stress echo at a high workload. Good functional aerobic capacity. Ordering Physician: Naif Rojas Referring Physician: Brennen Barrow Performed By: Suad Mena, SVETA, RVT
== END ==
PROVIDERS: PCP Family Medicine; Referring Provider Family Medicine; Visit Provider Family Medicine
DX: I25.10 Atherosclerotic heart disease of native coronary artery without angina pectoris (principal); I73.9 Peripheral vascular disease, unspecified
CPT/HCPCS: 93017; 93350; Q9957; A4216; C8928; J3490

== ENCOUNTER 2020-09-13 09:00 | Outpatient (RCR) | payer MEDICARE, MEDICAID, SELFPAY ==
[2020-08-24 08:58] VITALS: BMI 17.6
--- NOTE | 2020-09-13 09:10 | BH.SGPN.GN ---
Behaviors/Verbalizations/Mental Status: [] Eye contact is good. Motor activity is appropriate. Appearance is casual. Speech is Appropriate. Mood is depressed. Affect is flat. Thoughts are linear and logical. No evidence of psychosis. Reviewed daily check in sheet and no reports of suicidal ideations or intent. Client Response/Progress/Benefit: [] Pt spoke when prompted. Attentive. This was pt's first day in [facility] and he introduced himself. Shared that he has had several psychosocial stressors recently including separation from of 22 years and of support. He notes that he has no motivation and isolates most of the day. Struggles to complete ADLs and simple tasks. Significant depression. Group welcomed him to the group and gave some feedback and advoce fr his first day in [facility] which was beneficial. Will continue in [facility] to prevent decompensation, improve functioning, and increase healthy coping skills. Narrative Note: []
--- NOTE | 2020-09-13 10:15 | BH.SGPN.GN ---
Behaviors/Verbalizations/Mental Status: []Client alert and oriented, neatly dressed and groomed. Eye contact good. Motor activity appropriate. Speech within normal limits. Affect constricted, mood dysthymic. Thoughts linear, logical, no signs of hallucinations or delusions. Client Response/Progress/Benefit: []Pt was an active participant in group discussion and activity. Pt along with peers were able to identify what could impact one's perspective which included; mood, intuitions, internal bias, stress, and mental health. Group was able to identify how a negative perspective could hinder mental health progress. Pt?s first day in IOP tx, so he did not share much but he did some nodding. Pt also reported that he is hard of hearing which may have impacted his engagement today. Benefited from group by increasing awareness on the role of perspective in mental health wellness. Will continue in IOP tx to prevent decompensation, reduce isolation, and improve overall functioning. Narrative Note: []
--- NOTE | 2020-09-13 11:18 | BH.SGPN.GN ---
Behaviors/Verbalizations/Mental Status: []Client alert and oriented, casually dressed and groomed. Eye contact fair to good. Motor activity appropriate. Speech within normal limits, quiet as client reports struggling to hear. Affect congruent, mood anxious and depressed. Thoughts linear, logical, no signs of hallucinations or delusions. Client Response/Progress/Benefit: []Pt receptive to session AEB providing input to session when prompted and completing worksheet; however, at times struggled in remaining fully engaged as client indicted having difficulties in hearing much of the discussion. Noted forgetting his hearing aids today which seemed to impede overall ability to connect with materials reviewed. Pt was however able to identify personal strengths to include: kindness, common sense, and sense of humor. Pt shared that these personal strengths could assist in better managing mental health symptoms by helping to learn healthy ways of coping with his stressors through humor. Additionally discussed that through practicing kindness he would be able to remind himself of his continued adherence to personal values. Pt new to IOP tx and is still adjusting to tx setting. Identified importance of reminding himself of personal strengths and practicing using them daily in order to further promote self-compassion and improve resilience. Pt to continue IOP to promote mood stability and improve coping skills, as well as prevent decompensation. Narrative Note: []
--- NOTE | 2020-09-13 13:23 | BH.COMM_ITS ---
Communication Note - Communication with Client Communication Note: Met with pt to complete initial paperwork. No significant changes since pre-admission screening. Completed [place] [facility] Scre[facility]. Current risk is moderate. Hx of three suicide attempts via overdose ?on different kinds of meds.? The last attempt was in the early and he was hospitalized. Client denies that his recent overdose on heroin (May 2020) was a suicide attempt, but he did say that he wished he was not resuscitated. Denies any active suicidal ideation, plan, or intent today. Future oriented and thinking about returning to work. No access to weapons.
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
[2020-09-14 12:13] VITALS: BP 137/88; PULSE 78
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
--- NOTE | 2020-09-14 13:28 | BH.DR.ITP ---
Initial Treatment Plan Patient Information Visit Information: ADMISSION DATE: EXPECTED LOS: 4-6 weeks Problems/Symptoms Problem #1:: Depression Symptom:: Sadness, isolation, anhedonia, hopelessness, worthlessness, biological disruption of sleep, low energy, passive thoughts of Problem #2:: Anxiety Symptom:: Worry, rumination, panic attacks
--- NOTE | 2020-09-15 09:00 | BH.SGPN.GN ---
Behaviors/Verbalizations/Mental Status: []Eye contact is fair. Motor activity is appropriate. Appearance is casual. Speech is Appropriate. Mood is dysthymic. Affect is constricted. Thoughts are linear and logical. No evidence of psychosis. Reviewed daily check in sheet and pt denies any suicidal ideations or thoughts of . Client Response/Progress/Benefit: []Client responded well to session, providing feedback to peers. Client reports feeling kind of optimistic this morning. Client shared he is giving himself credit for participating in IOP and not isolating. Client stated I realize if I don't change I won't get better and it will be my fault. Client shares his focus in going to be on what he can control each day rather than focus on the uncontrollables. Client's biggest stressor right now is his health and waiting to hear back on recent test results. Appeared to benefit from connecting with peers and acknowledging wins. Will continue IOP tx to prevent decompensation, improve overall functioning, and reduce isolation. Narrative Note: []
--- NOTE | 2020-09-15 10:00 | BH.SGPN.GN ---
Behaviors/Verbalizations/Mental Status: [] Eye contact is good. Motor activity is appropriate. Appearance is casual. Speech is Appropriate. Mood is depressed. Affect is flat. Thoughts are linear and logical. No evidence of psychosis. Client Response/Progress/Benefit: [] Pt participated at times in group discussion. Attentive during psychoeducation on the impact of anxiety, benefits of anxiety, and the different anxiety disorders. Pt asked questions and was engaged during discussion on types of anxiety disorders (OCD, PTSD, Panic D/O, Agoraphobia, NATALIE, Acute Stress Disorder, and Phobias). Group worked together to identify a list of common signs of anxiety which included; feeling tense, shakiness, sweating, tight chest, upset stomach, feeling flush, SOB, increased heart rate, headache, numbness, etc). Group was primarily psychoeducational in nature and pt was attentive. Benefited from increased awareness of different types of anxiety disorders as well as benefits and importance of identifying physiological signs of anxiety. Will continue in IOP to maintain safety, increase healthy coping skills, and improve functioning. Narrative Note: []
--- NOTE | 2020-09-15 13:29 | BH.MDN_ITS ---
Multi-Disciplinary Note - Note 30-min Individual Time Started:: 11:18 Date: 09/15/20 Purpose of session/treatment goals addressed:: The purpose of this session was to gather information on client's current stressors, symptoms, and treatment goals. Another goal was to build rapport and provide psychoeducation. Eye Contact:: Good Motor Activity:: Appropriate Appearance:: Casual Speech:: Appropriate Mood:: Depressed Affect:: Congruent Thoughts:: Linear, Logical, No evidence of hallucinations/delusions noted Staff Interventions:: Therapist used active listening and open-ended questions to explore client's current stressors, symptoms, history, and treatment goals. Therapist used strengths perspective to build rapport and aid client in identifying resilience factors. Therapist provided brief psychoeducation on maintenance cycles and depression. Client Response:: Client responded well to session, open to meeting with therapist. Client reports enjoying group so far and finds the group environment to be supportive. Shared struggling with mental health for much of his life and has had limited success in managing symptoms. Reports ?I always look for unhealthy ways to cope and try to just numb or distract myself?. Discussed various means of coping with depression in the past which included an extensive drug history, focusing on caregiving for others rather than himself, sleeping as a means of avoidance, isolation, and suicidal ideation. Client noted he has been sober from all drugs except for marijuana and tobacco for several years outside of an incident a few months ago in which client overdosed on heroine. Insists that he had not been suicidal at the time and was using the heroine because he ?just wanted to sleep?. Client does however have a history of 4 prior suicide attempts via attempted overdose. Last attempt was in 2018 in which client attempted overdosing on his Gabapentin. Denies seeking medical help at that time. Client denies current suicidal ideation, however, does admit to feeling apathetic about being alive and would not care if he dies. States that his depression and anxiety have been worsening over the past 2 years. Shared primary stressors include an ongoing divorce, the deaths of several close supports in the past year, several new health issues, and adjusting to care home. Shared he has struggled with loneliness and loss of a sense of purpose since he and his two years ago and client retired last year. Expressed ?I don?t know who I am anymore? and reported not having a relationship with himself or knowing what he wants out of life as he has always worried about others and not taken the time to care for himself. Reports wanting to work on this and find something that helps him feel more connected and as though he has a sense of purpose. Additionally discussed wanting to improve his ability to cope with his anxiety associated with recent medical problems. Receptive of discussion on self-love and open to beginning to think about what self-love might look like for him. Risks/Concerns:: Client denies any active suicidal ideations, plan, or intent as of 09/15/20. Client does have a hx of chronic passive SI and has had 4 prior [place] icide attempts with the most recent attempt being in 2018. Client denies any risk of harm to self and reports ability to maintain safety at this time. Client is future oriented. Protective factors noted. Progress Toward Goals/Plan:: Client reports enjoying the IOP program so far and discussed connecting with materials he is learning. Engaging well in IOP tx AEB consistent attendance and attentiveness in group. At times has difficulty hearing as does not always wear his hearing aids, this may present as a problem to progress in the future. Encouraged to wear hearing aids when in group. Client is on his first week of IOP tx, so no significant progress noted. Client endorses depressive symptoms, low motivation, worthlessness, passive SI, grief, crying spells, lack of purpose, and hopelessness. Anxiety issues include panic attacks, ruminating thoughts, fear of being alone, panic, and intrusive worry. Client would like to work on improving his independence and relationship with himself, learn coping skills, address grief, and better manage anxiety. Client will continue IOP tx to prevent decompensation, improve mood stability, and learn healthy coping skills. Time Stopped:: 11:50
--- NOTE | 2020-09-15 13:31 | BH.MTP ---
[facility] - Patient Information Program Physician:: Dr. Dolores Coleman Primary Therapist:: Claribel Mello - Estimated LOS Estimated LOS (in weeks):: 6
--- NOTE | 2020-09-16 08:36 | BH.MTP ---
[facility] - Patient Information Program Physician:: Dr. Dolores Coleman Primary Therapist:: ORLIN Padron - Psychiatric Diagnoses Psychiatric Diagnoses:: Major depressive disorder, recurrent, severe without psychosis, Dysthymia, Generalized anxiety disorder, Alcohol use disorder (sober for 6 years except for a rare drink of alcohol), Marijuana use disorder, History of polysubstance use disorder including cocaine and heroin and meth (last took heroin in May 2020) Diagnosis Code(s):: F 33.2, F 34.1, F 41.1 - Estimated LOS Estimated LOS (in weeks):: 6 Problem/Goal #1 - Problem/Goal #1 Stated Goal:: Client will reduce depressive symptoms, feelings of hopelessness, worthlessness, and passive thoughts of due to Major Depressive Disorder through Intensive Outpatient Program. Description of Barriers: Negative and distorted thoughts, limited supports, impulsivity resulting in hx of high risk behaviors, past substance use with recent relapse several months ago, intrusive thoughts, low motivation and apathy could all be barriers to treatment. Functional Impact: The patient is a 64-year-old male with a history of depression and substance abuse who was referred to the [facility] behavioral health IOP program by his PCP due to worsening depression and anxiety. Current stressors include: leaving his of 22 years, recent alf, grieving the loss of several supports, and ongoing physical health related issues. At time of admission, pt endorses: sadness, hopelessness, isolation and avoidance, anhedonia, worthlessness, anhedonia, poor sleep patterns, lack of purpose, low energy and motivation, increased worry and ruminating thoughts, weekly panic attacks, and passive thoughts of stating ?I don?t know why I?m alive?. Pt has had 4 prior suicide attempts, last occurring in 2018. He denies active SI, plan, or intent. homicidal ideation, hallucinations, delusions or symptoms of jose alfredo ever. Reports current mental health sx are impeding his ability to complete ADL?s or function at baseline. Goal Relevant Strengths/Supports: Reports he is hopeful and open to mental health treatment, engaged in treatment, discussed several resiliency traits, has good insight, and has been able to successfully sustain polysubstance recovery (outside 1 relapse in 6+ years) - Objectives Objective #1 Stated Objective: Client will identify areas of interest and increase sense of purposefulness through engagement in meaningful extracurricular activities by participating in at least one additional activity per week. Interventions: Therapist will help client explore values and interests to identify and promote active engagement in activities he finds meaningful and enjoyable. Therapist and client will discuss skills for more mindfully engaging in and connecting to those activities. Therapist will help client identify barriers that have prevented from engaging in more activity. Discharge Criteria: Client will have achieved this goal when he can identify 1-2 personal values and is actively engaging in at least one extracurricular activity related to identified values. Target Date: 10/26/20 Review Date: 10/12/20 Objective #2 Stated Objective: Pt will decrease depressive symptoms AEB pt?s score on the DSM 5 cross-cutting measure and improve pt?s daily functioning. Interventions: Through groups and individual therapy, pt will be provided with education on cognitive distortions, mistaken beliefs, and identifying and combating negative self-talk. Therapist will assist pt with re-engaging with his healthy supports, better communicating mental health needs, as well as increasing healthy coping strategies. Discharge Criteria: Pt will have met this goal when pt?s score on the DSM 5 cross cutting measure for depression has been decreased and per pt?s report daily functioning has improved Target Date: 10/26/20 Review Date: 10/12/20 Problem/Goal #2 - Problem/Goal #2 Stated Goal:: Stabilize anxiety level while increasing ability to function on daily basis. Description of Barriers: Negative and distorted thoughts, limited supports, impulsivity resulting in hx of high risk behaviors, past substance use with recent relapse several months ago, intrusive thoughts, low motivation and apathy could all be barriers to treatment. Functional Impact: The patient is a 64-year-old male with a history of depression and substance abuse who was referred to the [facility] behavioral health IOP program by his PCP due to worsening depression and anxiety. Current stressors include: leaving his of 22 years, recent alf, grieving the loss of several supports, and ongoing physical health related issues. At time of admission, pt endorses: sadness, hopelessness, isolation and avoidance, anhedonia, worthlessness, anhedonia, poor sleep patterns, lack of purpose, low energy and motivation, increased worry and ruminating thoughts, weekly panic attacks, and passive thoughts of stating ?I don?t know why I?m alive?. Pt has had 4 prior suicide attempts, last occurring in 2018. He denies active SI, plan, or intent. homicidal ideation, hallucinations, delusions or symptoms of jose alfredo ever. Reports current mental health sx are impeding his ability to complete ADL?s or function at baseline. Goal Relevant Strengths/Supports: Reports he is hopeful and open to mental health treatment, engaged in treatment, discussed several resiliency traits, has good insight, and has been able to successfully sustain polysubstance recovery (outside 1 relapse in 6+ years) - Objectives Objective #1 Stated Objective: Client will learn and implement 2-3 calming skills to reduce overall anxiety and manage anxiety symptoms. Interventions: Therapist will teach client calming/relaxation skills and assign client homework which practices relaxation skills daily. Therapist will review common cognitive distortions which can reinforce anxious thought patterns and aid client in effectively challenging and replacing distorted thoughts. Discharge Criteria: Client will have achieved this goal when can verbalize at least 2 calming and thought challenge skills and implement those skills. Target Date: 10/26/20 Review Date: 10/12/20 Objective #2 Stated Objective: Pt will decrease anxious symptoms AEB pt?s score on the DSM 5 cross-cutting measure improve pt?s daily functioning. Interventions: Through groups and individual therapy, pt will be provided education about anxiety?s impact on body and common physiological reaction to anxiety. Therapist will teach pt appropriate breathing techniques and build healthy coping skills to manage daily anxieties. Discharge Criteria: Pt will have met this goal when pt?s score on the DSM 5 cross cutting measure for anxiety has been decreased and per pt?s report daily functioning has improved. Target Date: 10/26/20 Review Date: 10/12/20
--- NOTE | 2020-09-20 08:57 | BH.PSA ---
Source of Information - Presenting Problems/Circumstances Problems, Referral Source, Mental Status, Client: The patient is a 64-year-old male with a history of depression and substance abuse who was referred to the [facility] behavioral health IOP program by his PCP due to worsening depression and anxiety. Current stressors include: leaving his of 22 years, recent assisted, grieving the loss of several supports, and ongoing physical health related issues. At time of admission, pt endorses: sadness, hopelessness, isolation and avoidance, anhedonia, worthlessness, anhedonia, poor sleep patterns, lack of purpose, low energy and motivation, increased worry and ruminating thoughts, weekly panic attacks, and passive thoughts of stating ?I don?t know why I?m alive?. Pt has had 4 prior suicide attempts, last occurring in 2018. He denies active SI, plan, or intent. homicidal ideation, hallucinations, delusions or symptoms of jose alfredo ever. Reports current mental health sx are impeding his ability to complete ADL?s or function at baseline. Psychiatric Presentation - Psych Issues & Need for Admission Psychiatric Issues:: grief, depression, anxiety, panic, passive thoughts of , and polysubstance abuse hx Past Psychiatric History - Treatment Hx Treatment History: Pt reports he has been in substance abuse rehab on multiple occassions. Reports a history of 6 prior psychiatric admissions. The first was at age 16 for depression and suicide attempt by overdose and he was admitted for 3 days. The most recent psychiatric admission was in 2003 for depression and overdose in [place]. He had 4 admissions between those which were all for depression. He has had 4 suicide attempts total and he was only admitted to the hospital for 2 of his suicide attempts and they were all by overdose. His most recent suicide attempt was in 2018 by overdose on gabapentin but no one knew about it. He has had counseling off-and-on for many years and it has been helpful but struggles to remain consistent. Reports he does not currently have any current counseling providers. First hospitalization:: Age 16, depression and suicide attempt by overdose and he was admitted for Most recent hospitalization:: in 2003 for depression and overdose in [place]. Medication Trials:: Yes - Prozac, Elavil, Zoloft, Triavil, trazodone, gabapentiv, and Celexa. ECT Therapy:: No Age of first mental health symptoms: Reports he has been depressed most my life and indicated that he does not recall when he first began feeling this way but was first hospitalized at age 16. Describe (age, circumstance, etc) any past hospitalizations: age 16 for depression and suicidal ideation. 2x between ages 16 and 48 due to depression denies suicidal ideation. Most recent in 2003 due to depression and suicidal ideation in which client attempted to overdose while living in [place] Current providers for mental health treatment (counselor, psychiatrist, corrections caseworker, etc.): Denies. Development & Family of Origin - Childhood Significant Childhood Events: Reports his childhood was good and that his parents were loving but did not always show it. Reports he was very close to his mother and was seen as the baby of the family until client was 8 years old when his youngest sister was born. Shared that he moved to 7 different schools in 12 years due to his father's job. Denies any abuse. Reports he first began drinking alcohol at age 14. - Family Who currently lives in your home?: Lives in [place] with a roommate (friend) as he is currently estranged from his and is currently seeking a divorce. Describe family composition:: Client is the second youngest child of 6. He has 4 sisters and one brother. His youngest sister is 10 years younger than he is. Client is estranged from his of 22 years due to his husbands issues with addiction and client is currently pursuing divorce. - Family History Family History: Family History (Last Reviewed 09/14/20 @ 12:01 by Deanne Caceres) Mother Diabetes Heart disease Hypertension Thyroid disorder Ulcer Sister Asthma Heart disease Hypertension Cancer Family Hx of Psychiatric or AOD Problems: mother at age 84 from Alzheimer's dementia. There is a large history of depression in his family including his maternal grandfather, mother, 4 sisters, 1 brother and 1 aunt. No completed suicides in the family. There is a substance abuse issues in his brother, 2 sisters and 2 maternal aunts. Ethnicity - Culture Do you identify yourself with any particular cultural, ethnic background, or community?: No - Sexuality Sexual Orientation: Homosexual - and seeking divorcemarried 22 years, currently estranged from his Spirituality - Jain Do you currently identify with any organized sabianism?: None - Beliefs Is there a particular form of support from this community you can use for your recovery?: No Mental Status - Memory Recent Memory: Fair Remote Memory: Fair - Concentration Concentration: Fair - Eye Contact Eye Contact: Good - Speech Speech: Congruent - Thought Process Thought Process: Logical Insight: Fair Judgment: Fair - hx of impulsivity Behavior: Normal, Anxious - Orientation Orientation: Time, Person, Place, Situation - Appearance Appearance: Appropriate - Mood Mood: Anxious, Depressed - Affect Affect: Appropriate/calm Suicide Assessment - Suicidal Ideation Have you ever felt like hurting yourself?: Yes Please explain:: hx of 4 prior suicide attempts, most recent in 2003 Were you using ETOH/drugs at the time?: No - unsure pt did not indicate Suicidal Intentional Rating Scale (SIRS): Suicidal thoughts (past) - current passive thoughts of not caring if he . Denies suicidality, plan, or intent Physician Notification: If Active suicidal thoughts/Will not contract for safety is checked, contact physician and document in the Physician Notification section below. Violent Behavior/Abuse History - Homicidal Ideation Do you have any homicidal thoughts? If so, explain:: No Is there a known potential victim? If yes, who:: No - Abuse Have you ever been abused?: No - Life Events Are there any other significant life events?: - pt has experienced several close losses in the past year, Hardships - currently estranged from his of 22 year and seeking divorce Recently retired and struggling to adjust with this Describe significant life events: incarcerated for 6 years due to attempted robbery with a weapon, hx of 3 DUIs most recent in 2010. Reports he is close with his Godchildren and feels responsible for helping to raise them since their mother recently. Extensive drug abuse hx, with a recent heroine overdose 4 months ago. Pt reports this was accidental as he took the drugs to try and sleep and was not suicidal at that time. Reports several medical issues as well - Safety Do you ever feel threatened in your home? If yes, describe:: No Adult Social History - Age 16 to Present Describe your current support system:: Reports he has several friends and that his roommate, who is a friend, has been a positive support. Reports his sister is a support to him. Substance Use - Substance Substance Use Type: Alcohol - mostly sober for 6 years outside of a rare drink approximately 1-3 drinks per year, Benzodiazepines - reports trying these but did not enjoy the effects, Cocaine - was addicted to cocaine but has been sober from cocaine since the , Ecstasy - reports previously trying this, Heroin, Marijuana - joints and bowls daily to once a week, Methamphetamine - and used it for 2 months off and on but none recently, Opiates - reports trying these but did not enjoy the effects, Tobacco - hx of 2/pack per day smoking but has reduced to smoking ~5 cigarettes per day for past 30 years, Caffeine - ~2 cups coffee per day, Other - reports hx of trying LSD - Withdrawal History Withdrawal History: Other (See comments) - pt has an overdose hx and reports he went through detox at [facility] in the for alcohol. 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 Reports he has always been able to keep a job. Service - Service Have you ever been in the ?: No Legal History - Records Have you had any past legal charges?: Yes - skilled nursing [address] [place] for a robbery. Skilled Nursing for shoplifting. Hx of 3 DUIs Do you have any current legal charges?: No Have you ever been incarcerated? If yes, describe:: Yes - skilled nursing [address] [place] for a robbery with weapon. Denies shooting the gun - Court Orders Have you had any past court orders for psychiatric treatment?: No Do you have a present court order for psychiatric treatment?: No Problem Checklist - Current Problem Areas Problem List: Pain management - several new medical issues, Depressed mood/sad, Bereavement, Anxiety, Impulsivity, Substance use, Pertinent health issues, Additional psychosocial stressors - currently going through divorce Discharge Planning Needs - Anticipated Follow-Up Family and Caregiver Contacts:: Albadm Tsai, Sister, emergency contact [phone] Release of Information Signed:: Yes 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 Assessment - Client's Needs What are the client's goals?: Reports wanting to improve ability to mange anxiety, become more independent, and improve his relationship with himself Diagnoses - Diagnoses Diagnosis #1:: Dysthymia Diagnosis #2:: Major depressive disorder, recurrent, severe without psychosis Diagnosis #3:: Generalized anxiety disorder Diagnosis #4:: History of polysubstance use disorder including cocaine, Etoh, heroin, meth Interpretive Summary - Interpretive Summary Interpretive Summary: The patient is a 64-year-old male with a history of depression and substance abuse who was referred to the [facility] behavioral health IOP program by his PCP due to worsening depression and anxiety. The patient states that he has been depressed most of my life. The patient left his of 22 years in 2018 as his was abusive and addicted to methamphetamine. Reports this has been an ongoing stressor and has resulted in increased feelings of grief, guilt for ?my friends having to watch this?, and loss of identity. 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 Expressed decreased ability to completer ADL?s as a result of increased depression and anxiety. Additional stressors include the loss of his step-daughter, [id number], and best friend, as well as an increase in physical health related issues. Since May 2020 the patient has also been diagnosed with COPD, had a lung nodule found, and had positive fecal occult blood and is having a work-up for that. Patient has a history of alcohol and drug use and has been sober from alcohol for 6 years. He continues to report he smokes marijuana daily. At time of admission, pt endorses: sadness, hopelessness, worthlessness, anhedonia, poor sleep patterns, lack of purpose, low energy and motivation, increased worry and ruminating thoughts, weekly panic attacks, and passive thoughts of stating ?I don?t know why I?m alive?. Pt has had 4 prior suicide attempts, last occurring in 2018. He denies active SI, plan, or intent. homicidal ideation, hallucinations, delusions or symptoms of jose alfredo ever. Treatment Plan Recommendations - Recommendations Guidelines: Special needs identified to be included in the development of an individualized treatment plan regarding past psychiatric history and treatment, developmental events, family relationships/events/culture, past and/or current educational, occupational, social, and residential experience, and legal status. Recommendations:: The patient will start the IOP program at [facility] as the structure, support, education and group therapy will hopefully prevent worsening of the patient's symptoms which might require hospitalization.
--- NOTE | 2020-09-21 15:02 | BH.COMM ---
Communication Note - Communication with Client Communication Note: Pt scheduled for IOP group and individual sessions on this date however did not show or call to cancel. Pt did not return this therapists calls and emergency contact was alerted. Emergency contacted was able to reach out to pt and informed this therapist that pt had a headache and slept through group. Reports plans to attend tomorrow.
--- NOTE | 2020-09-22 15:07 | BH.COMM ---
Communication Note - Communication with Client Communication Note: Pt scheduled for IOP group and individual sessions on this date however did not show or call to cancel. Pt did not return this therapists calls. Will continue to reach out for follow-up
--- NOTE | 2020-09-23 15:07 | BH.COMM ---
Communication Note - Communication with Client Communication Note: Pt scheduled for IOP group and individual sessions on this date however did not show or call to cancel. Pt did not return this therapists calls. Therapist left a message encouraging pt to call back. Client did not call back and will therefore be discharged from tx at this time.
--- NOTE | 2020-09-23 15:10 | BH.DS ---
Discharge Summary - Demographics Date of Admission:: 09/13/20 Discharge Date: 09/23/20 Presenting Problems at Admission:: The patient is a 64-year-old male with a history of depression and substance abuse who was referred to the [facility] behavioral health IOP program by his PCP due to worsening depression and anxiety. Current stressors include: leaving his of 22 years, recent care home, grieving the loss of several supports, and ongoing physical health related issues. At time of admission, pt endorses: sadness, hopelessness, isolation and avoidance, anhedonia, worthlessness, anhedonia, poor sleep patterns, lack of purpose, low energy and motivation, increased worry and ruminating thoughts, weekly panic attacks, and passive thoughts of stating ?I don?t know why I?m alive?. Pt has had 4 prior suicide attempts, last occurring in 2017. He denies active SI, plan, or intent. homicidal ideation, hallucinations, delusions or symptoms of jose alfredo ever. Reports current mental health sx are impeding his ability to complete ADL?s or function at baseline. Discharge Diagnoses:: Major depressive disorder, recurrent, severe without psychosis, Dysthymia, Generalized anxiety disorder, Alcohol use disorder (sober for 6 years except for a rare drink of alcohol), Marijuana use disorder, History of polysubstance use disorder including cocaine and heroin and meth (last took heroin in May 2020) Reason for Discharge:: Inconsistent attendance. No showed for multiple IOP sessions and did not return attempts to follow-up. Not engaged and has not responded to attempts to contact. - Treatment Progress During Treatment & Response: Limited progress due to inconsistent attendance and only being in the program for 1 week. Client has not attended an IOP session since 09/15/20, no showing for the past 3 IOP sessions. No change in scores or symptoms as client was not in the program ling enough nor had he successfully implemented any skills learned prior to discharge. Issues Still to be Addressed:: Anxiety, panic, mental health impacting ability to function, depression, boundary setting, medical anxiety, and grief. Hx of polysubstance abuse. Discharge Recommendations/Instructions:: Pt did not yet establish with outpatient providers and is encouraged to do so to continue to work on mental health. Discharge Handout: Complete Discharge Handout with client on aftercare options and continuity of care.
== END 2020-09-23 15:00 | disposition home or self-care (01) ==
LOC: BHIOP 09:00
PROVIDERS: PCP Family Medicine; Referring Provider Psychiatry & Neurology Psychiatry; Visit Provider Psychiatry & Neurology Psychiatry
DX: F33.2 Major depressive disorder, recurrent severe without psychotic features (principal); F34.1 Dysthymic disorder; F41.1 Generalized anxiety disorder; Z72.89 Other problems related to lifestyle; F12.90 Cannabis use, unspecified, uncomplicated
CPT/HCPCS: S9480; 90832; 90853

== ENCOUNTER → 2020-09-14 12:19 | Outpatient (CLI) | payer BC, MEDICAID, SELFPAY ==
[2020-09-14 12:03] VITALS: BMI 18.1
[2020-09-14 12:41] LABS: Hematocrit 37.4 % (40-54); Hemoglobin 12.3 g/dL (13.0-16.5); Mean Corp Hgb Conc 32.9 g/dL (32-36); Mean Corpuscular Hgb 30.3 pg (27.0-32.0); Mean Corpuscular Volume 92.1 fL (80-94); Mean Platelet Vol. 9.2 fl (6.2-12.0); Platelet Count 295 K/mm3 (150-450); RBC Distribution Width CV 14.2 % (11.6-14.6); RBC Distribution Width SD 48.4 fl (35.1-43.9); Red Blood Count 4.06 M/mm3 (4.6-6.2)
== END ==
PROVIDERS: PCP Family Medicine; Referring Provider Surgery; Visit Provider Surgery
DX: D64.9 Anemia, unspecified (principal)
CPT/HCPCS: 36415; 85027

== ENCOUNTER → 2020-11-23 12:37 | Outpatient (CLI) | payer BC, MEDICAID, SELFPAY ==
--- NOTE | 2020-11-23 12:39 | ART_ITS ---
Reason For Study: Claudication Procedure A bilateral lower extremity continuous wave Doppler with analog waveform analysis,segmental pressures,and ankle brachial indexes with exercise. Left Segmental Pressures Left brachial= 147mmHg. Left posterior tibial artery = 160mmHg. Left dorsalis pedis artery = 145mmHg. The left dorsalis pedis waveforms are triphasic. The left posterior tibial artery waveforms are triphasic. Right Segmental Pressures Right brachial= 140mmHg. Right posterior tibial artery = 158mmHg. Right dorsalis pedis artery = 143mmHg. The right dorsalis pedis waveforms are triphasic. The right posterior tibial artery waveforms are triphasic. Indices The right ankle brachial index by the dorsalis pedis is 0.97. The right ankle brachial index by the posterior tibial artery is 1.07. The right post exercise ankle brachial index is 0.77. The left ankle brachial index by the dorsalis pedis is 0.99. The left ankle brachial index by the posterior tibial artery is 1.09. The left post exercise ankle brachial index is 0.93. VL/Lower Ext Art Exam w/ Exercise Interpretation Summary Normal bilateral lower extremity PT and DP ankle-brachial indices at rest with normal bilateral posterior tibial and dorsalis pedis triphasic Doppler waveforms. Abnormal bilateral lower extremity exercise response with the right BETH going f rom 1.07 to after exercise at 0.77 with recovery by 3 minutes and the left going from a resting 1 .092 immediately after exercise at 0.93 with again recovery by 3 minutes. Similar findings were reported November 12, 2019 Ordering Physician: Kevin Long Referring Physician: Naif Rojas Performed By: Luz Maria Hunter RVT
== END ==
PROVIDERS: PCP Family Medicine; Referring Provider Surgery; Visit Provider Surgery
DX: I73.9 Peripheral vascular disease, unspecified (principal)
CPT/HCPCS: 93924

== ENCOUNTER 2021-03-03 13:35 | Outpatient (CLI) | payer MEDICARE, MEDICAID, SELFPAY ==
--- NOTE | 2021-03-03 13:38 | CT_ITS ---
STUDY: CT CHEST WITHOUT CONTRAST REASON FOR EXAM: Male, 65 years old. RUL lung nodule RADIATION DOSAGE (If Supplied By Facility): CTDIvol = ( 7.39 ) mGy, DLP = ( 312.12 ) mGycm TECHNIQUE: Transaxial imaging was performed without the administration of intravenous contrast material. Multiplanar coronal and sagittal images were reformatted. Individualized dose optimization techniques were used for this CT. COMPARISON: Comparison is made with prior examination dated 08/18/2020. FINDINGS: Hyperinflation and emphysematous changes with centrilobular emphysema worse in the upper lobes. Stable 1.5 cm pleural-based nodule in the posterior medial aspect of the left lung apex. Stable minimal increased markings in the left lung apex suggestive of scarring. There is no demonstrated pleural abnormality. There are calcifications of the coronary arteries. There are multiple small lymph nodes within the mediastinum, which are normal in size and morphology most compatible with reactive lymph hyperplasia. Normal hilar regions. Normal unenhanced pulmonary arteries. Normal aorta arch and descending thoracic aorta. There are multi-level degenerative changes of the thoracic spine. There is no demonstrated abnormality of the visualized upper abdomen. CT/Chest without Contrast IMPRESSION: Diffuse emphysematous changes and hyperinflation as described. Stable changes in the right upper lobe pulmonary nodule as well as increased markings at the left lung apex. Electronically Signed: Ruben Ramsay MD at 15:08 EST , Service support ,
== END 2021-03-03 23:59 | disposition short-term general hospital (02) ==
LOC: CT 13:38
PROVIDERS: PCP Family Medicine; Referring Provider Internal Medicine Critical Care Medicine; Visit Provider Internal Medicine Critical Care Medicine
DX: R91.1 Solitary pulmonary nodule (principal)
CPT/HCPCS: 71250

== ENCOUNTER 2021-04-05 12:22 | Outpatient (CLI) | payer MEDICARE, MEDICAID, SELFPAY ==
--- NOTE | 2021-04-05 12:26 | CDU_ITS ---
Reason For Study: recheck carotid stenosis Rt. Velocities/BP Lt. Velocities/BP Prox CCA 89.5/17.7 cm/sec. Prox CCA 118.0/23.0 cm/sec. Mid CCA 103.8/20.3 cm/sec. Mid CCA 112.5/19.4 cm/sec. Dist CCA 116.9/24.3 cm/sec. Dist CCA 96.1/23.0 cm/sec. Prox ICA 110.7/21.2 cm/sec. Prox ICA 108.7/19.3 cm/sec. Mid ICA 90.6/24.8 cm/sec. Mid ICA 83.2/21.2 cm/sec. Dist ICA 154.5/37.6 cm/sec. Dist ICA 96.1/32.1 cm/sec. Rt. ICA/CCA = 154.5/116.9=1.3. Lt. ICA/CCA = 108.7/112.5=1.0. Prox ECA 174.6/21.2 cm/sec. Prox ECA 138.1/19.4 cm/sec. Rt. Vert. 64.4/11.6 cm/sec. Lt. Vert. 75.4/16.0 cm/sec. Right Extracranial There is homogeneous, smooth atherosclerotic plaque noted in the right common carotid artery. There is homogeneous, smooth atherosclerotic plaque noted in the right internal carotid artery. The tortuous nature of the right internal carotid artery may result in flow velocities overestimating the degree of stenosis. There is homogeneous, irregular atherosclerotic plaque noted in the right external carotid artery. Antegrade flow is noted in the right vertebral artery. Left Extracranial There is heterogeneous, smooth atherosclerotic plaque noted in the left common carotid artery. There is heterogeneous, irregular atherosclerotic plaque noted in the left internal carotid artery. There is heterogeneous, smooth atherosclerotic plaque noted in the left external carotid artery. Antegrade flow is noted in the left vertebral artery. There is heterogeneous, irregular atherosclerotic plaque noted in the left bulb. Procedure Carotid Duplex [id number]. This is a Carotid Duplex examination using B-mode, color flow and specral Doppler. Exam performed in department. VL/Carotid Duplex Ultrasound Interpretation Summary Smooth plaque in the proximal right internal carotid artery with tortuosity of the right internal carotid artery noted. Less than 50% stenosis right proximal internal carotid artery with slight dista l internal carotid artery velocity elevation likely secondary to tortuosity Less than 50% stenosis right external carotid artery Irregular calcific plaque of the proximal left internal carotid artery with les s than 50% stenosis Less than 50% stenosis left external carotid artery Patent and antegrade vertebral arteries bilaterally Ordering Physician: Naif Rojas Referring Physician: Naif Rojas Performed By: Suad Mena, SVETA, RVT
== END 2021-04-05 23:59 | disposition home or self-care (01) ==
LOC: CVS 12:25
PROVIDERS: PCP Family Medicine; Referring Provider Family Medicine; Visit Provider Family Medicine
DX: I65.23 Occlusion and stenosis of bilateral carotid arteries (principal)
CPT/HCPCS: 93880

== ENCOUNTER 2021-10-20 01:52 | Inpatient (IN) | payer MEDICARE, MEDICAID, SELFPAY ==
[2021-10-20 01:53] VITALS: BP 162/131; PULSE 95; RESP 18; TEMP 36.1; O2SAT 98; BMI 17.8
--- NOTE | 2021-10-20 02:15 | EX.ED.SAOD ---
HPI History of Present Illness Chief Complaint: Substance Abuse Informant: patient Narrative Narrative: patient is a 65 year old male with history of anxiety, depression, GERD, COPD/emphysema and peripheral arterial disease presenting for opiate withdrawal. Patient states has been using slow which he believes is some type of fentanyl mixture. Has been using it daily since July after one of his roommates was murdered in their house. Patient's been trying to quit and earlier tonearnestine took Klonopin and then Suboxone from a friend. He then started having withdrawal symptoms including hot and cold flashes, muscle spasms, nausea and tremor. Patient came in for help with the symptoms and is interested in opioid detox. He is never been through detox before. Denies any other drug use. Denies any alcohol use. No other complaints at this time. [facility] Medical History Alcohol use disorder Basal cell carcinoma (BCC) Chronic back pain Depression Dysthymia Emphysema lung Generalized anxiety disorder GERD (gastroesophageal reflux disease) Hemorrhoid Iron deficiency anemia Major depressive disorder, recurrent severe without psychotic features Osteoarthritis PAD (peripheral artery disease) Polysubstance abuse Home Medications albuterol sulfate 90 mcg/actuation aerosol inhaler 2 puff inhalation Q4H PRN shortness of breath or wheezing #8.5 grams 08/24/20 [Rx Last Taken Unknown] tiotropium 2.5 mcg-olodaterol 2.5 mcg/actuation mist for inhalation (Stiolto Respimat) 2 inh inhalation DAILY #4 grams 08/26/20 [Rx Last Taken Unknown] aspirin 81 mg tablet 81 mg PO DAILY 09/14/20 [History Last Taken Unknown] bupropion HCl 300 mg 24 hr tablet, extended release (Wellbutrin XL) 300 mg PO DAILY 30 days #30 tabs 09/14/20 [Rx Last Taken Unknown] ibuprofen 600 mg tablet 600 mg PO PRN PRN Pain 09/14/20 [History Last Taken Unknown] omeprazole 40 mg capsule,delayed release 40 mg PO DAILY #90 caps 09/19/20 [Rx Last Taken Unknown] tiotropium 2.5 mcg-olodaterol 2.5 mcg/actuation mist for inhalation (Stiolto Respimat) 2 puff inhalation DAILY #3 ea 03/30/21 [Rx Last Taken Unknown] Allergy/AdvReac Type Severity Reaction Status Date / Time buspirone [From BuSpar] Allergy Mild shaking, Verified 10/20/21 01:56 restless legs sucralfate [From Carafate] Allergy Other Verified 10/20/21 01:56 venom-honey bee Allergy Anaphylaxis Verified 10/20/21 01:56 [bee venom (honey bee)] Family History Mother Diabetes Heart disease Hypertension Thyroid disorder Ulcer Sister Asthma Heart disease Hypertension Cancer multiple myeloma Surgical History History of cataract extraction History of cholecystectomy (~2002) History of colonoscopy (~2018) Hx of endarterectomy Hx of local excision of skin lesion Social History Smoking Status: Current every day smoker tobacco type: cigarettes Tobacco: How many years used: 50 Electronic Cigarette Use: not used second hand exposure: No quit status: considering quitting counseling given: provider counseling ROS ROS ED Constitutional Constitutional ED: Reports chills and sweats; Denies fever(s) Eyes Eyes: Denies change in vision ENT ENT ED: Denies ear pain or sore throat Cardiovascular Cardiovascular: Denies chest pain Respiratory/Chest Respiratory/Chest: Denies cough Gastrointestinal Gastrointestinal: Reports nausea; Denies abdominal pain or vomiting Musculoskeletal Musculoskeletal: Reports myalgias; Denies arthralgias Integumentary Denies rash Neurologic Neurologic: Denies headache(s) or paresthesias Psychiatric Psychiatric: Reports anxiety Hematologic/Lymphatic Hematologic/Lymphatic: Denies easy bleeding or easy bruising EXAM Physical Exam Const Vital Signs: 10/20/21 01:53 10/20/21 03:04 Temperature 96.9 F L Temperature Source Temporal Pulse Rate 95 Respiratory Rate 18 Respiratory Effort Normal Non-Labored Respiratory Pattern Normal Blood Pressure 162/131 H Blood Pressure Mean 141 Pulse Ox 98 Oxygen Delivery Method Room Air Positive well nourished and well developed General Appearance ED: well developed and NAD HEENT Reports moist mucous membranes atraumatic Eyes PERRL Neck supple and no JVD Chest Wall inspection of chest normal Resp normal respiratory effort Cardio regular rate, regular rhythm and no murmurs GI soft to palpation, non-tender and non-distended Extremity General Extremety ED: Negative for edema or tenderness General Extremity: Negative for edema Neuro oriented x3 and no sensory deficits noted Neuro Narrative: Intermittent twitching of the extremities Motor Exam: strength 5/5 throughout and general weakness Psych mental status grossly normal Mood & Affect: anxious Skin Lesions: no lesions Rashes: no rashes MDM MDM MDM Narrative Medical decision making narrative: Patient evaluated for opioid detox. He is having withdrawal likely symptoms elicited by taking somebody else's Suboxone. Patient given oral gabapentin, clonidine and Zofran for symptoms. Patient is agreeable to admission for inpatient detox. Screening labs at baseline. Lab Data Attestation: I reviewed the patient's lab results. Labs: Laboratory Results - last 24 hr 10/20/21 10/20/21 10/20/21 02:40 02:40 02:45 WBC 8.7 RBC 3.62 L Hgb 10.2 L Hct 31.8 L MCV 87.8 MCH 28.2 MCHC 32.1 RDW Std Deviation 54.2 H RDW Coeff of Liliane 16.9 H Plt Count 289 MPV 9.9 Immature Gran % (Auto) 0.200 Neut % (Auto) 61.8 Lymph % (Auto) 25.8 [place] % (Auto) 8.3 Eos % (Auto) 3.8 Baso % (Auto) 0.1 Absolute Neuts (auto) 5.4 Absolute Lymphs (auto) 2.25 Nucleated RBC % 0 Sodium 140 Potassium 3.7 Chloride 108 H Carbon Dioxide 26.0 Anion Gap 6 BUN 20 H Creatinine 1.01 Estim Creat Clear Calc 56.62 Est GFR (MDRD) Af Amer 95 Est GFR (MDRD) Non-Af 78 BUN/Creatinine Ratio 19.8 Glucose 127 H Calcium 8.5 Total Bilirubin 0.30 AST 16 ALT 18 Alkaline Phosphatase 72 Total Protein 6.5 Albumin 3.2 Globulin 3.3 Albumin/Globulin Ratio 1.0 Urine Opiates Screen Urine Methadone Screen Ur Barbiturates Screen Ur Phencyclidine Scrn Ur Amphetamines Screen MDMA (Ecstasy) Screen U Benzodiazepines Scrn Urine Cocaine Screen U Cannabinoids Screen Ur Drug Screen Comment Ethyl Alcohol < 3.0 10/20/21 02:50 WBC RBC Hgb Hct MCV MCH MCHC RDW Std Deviation RDW Coeff of Liliane Plt Count MPV Immature Gran % (Auto) Neut % (Auto) Lymph % (Auto) [place] % (Auto) Eos % (Auto) Baso % (Auto) Absolute Neuts (auto) Absolute Lymphs (auto) Nucleated RBC % Sodium Potassium Chloride Carbon Dioxide Anion Gap BUN Creatinine Estim Creat Clear Calc Est GFR (MDRD) Af Amer Est GFR (MDRD) Non-Af BUN/Creatinine Ratio Glucose Calcium Total Bilirubin AST ALT Alkaline Phosphatase Total Protein Albumin Globulin Albumin/Globulin Ratio Urine Opiates Screen NEGATIVE Urine Methadone Screen NEGATIVE Ur Barbiturates Screen NEGATIVE Ur Phencyclidine Scrn NEGATIVE Ur Amphetamines Screen NEGATIVE MDMA (Ecstasy) Screen NEGATIVE U Benzodiazepines Scrn NEGATIVE Urine Cocaine Screen NEGATIVE U Cannabinoids Screen POSITIVE H Ur Drug Screen Comment Ethyl Alcohol Discharge Plan Triage Chief Complaint: Substance Abuse ED Provider: Jessica Gonzalez Dx/Rx/DC Orders Clinical Impression: Opioid dependence, Iron deficiency anemia, Acute opioid withdrawal Primary Care Provider: Naif Rojas Disposition Disposition: Acute Care Hospital [facility]
[2021-10-20] MEDS: Ondansetron ODT 4 MG Tablet PO (02:20)
[2021-10-20] MEDS: cloNIDine HCl 0.1 MG Tablet PO ×3 (02:21→21:11)
[2021-10-20] MEDS: Gabapentin 300 MG Capsule PO ×3 (02:39→21:11)
[2021-10-20 03:08] LABS: Absolute Lymphocyte Count 2.25 X10^3/uL (0.83-4.51); Absolute Neutrophil Count 5.4 X10^3/uL (2.0-7.7); Basophil# 0.01 X10^3/uL; Basophil% 0.1 % (0-1); Eosinophil# 0.33 X10^3/uL; Eosinophils% 3.8 % (0-5); Hematocrit 31.8 % (40-54); Hemoglobin 10.2 g/dL (13.0-16.5); Lymphocyte # 2.25 X10^3/ul (0.83-4.51); Lymphocyte % 25.8 % (19-41); Mean Corp Hgb Conc 32.1 g/dL (32-36); Mean Corpuscular Hgb 28.2 pg (27.0-32.0); Mean Corpuscular Volume 87.8 fL (80-94); Mean Platelet Vol. 9.9 fl (6.2-12.0); Monocyte# 0.72 X10^3/uL; Monocyte% 8.3 % (0-10); NRBC Flagged by Analyzer 0 % (0-5); Neutrophil # 5.39 X10^3/uL (2.7-7.7); Neutrophil % 61.8 % (47-70); Platelet Count 289 K/mm3 (150-450); RBC Distribution Width CV 16.9 % (11.6-14.6); RBC Distribution Width SD 54.2 fl (35.1-43.9); Red Blood Count 3.62 M/mm3 (4.6-6.2); White Blood Count 8.7 K/mm3 (4.4-11.0)
[2021-10-20 03:13] LABS: AST(SGOT) 16 U/L (15-37); Alanine Aminotransfer ALT/SGPT 18 U/L (16-61); Albumin, Serum 3.2 g/dL (3.2-5.0); Alkaline Phosphatase 72 U/L (45-117); Anion Gap 6 (5-15); BUN 20 mg/dL (7-18); BUN/Creat Ratio 19.8 RATIO (10-20); Calcium,Total 8.5 mg/dL (8.5-10.1); Chloride 108 mmol/L (98-107); Creatinine, Serum 1.01 mg/dL (0.70-1.30); EST Glomerular Filtration Rate 78 mL/min (>60); Est Glom Filt Rate - Afr Amer 95 mL/min (>60); Estimated Creatinine Clearance 56.62 ml/min; Globulin 3.3 g/dL (2.2-4.2); Glucose 127 mg/dL (74-106); Potassium 3.7 mmol/L (3.5-5.1); Protein, Total 6.5 g/dL (6.4-8.2); Sodium Level 140 mmol/L (136-145)
[2021-10-20 03:18] LABS: Amphetamine Urine VISTA NEGATIVE (<1000 ng/mL); Barbiturate Urine VISTA NEGATIVE (< 200 ng/mL); Benzodiazepine Urine VISTA NEGATIVE (< 200 ng/mL); Cocaine Urine VISTA NEGATIVE (< 300 ng/mL); Ecstacy Urine VISTA NEGATIVE (< 500 ng/mL); Methadone Urine VISTA NEGATIVE (< 300 ng/mL); PCP Urine VISTA NEGATIVE (< 25 ng/mL); THC Urine VISTA POSITIVE (< 50 ng/mL); Vista UDS pH Range 7
--- NOTE | 2021-10-20 03:27 | HP.PCM.HOS_ITS ---
HPI - General General Date of Admission: 10/20/21 Date of Service: 10/20/21 Chief Complaint: acute opioid withdrawal HPI Narrative LEIGH LOCO, is a 65 M with a PMH as outlined who presents via the ED with a complaint of opiate withdrawal. He has been using some form of fentanyl mixture called Slow and uses it daily. He had been trying to quit on his own. He started having hot and cold flashes, muscle spasms, nausea and tremors today after he took some klonopin and suboxone from a friend. As a result of his symptoms he came in to the ED. review of systems was otherwise negative. Vitals in the ED were temp of 96.9F, NE of 95 and BP of 162/131 and RR of 18 and he was saturating at 98% on room air. CBC showed hb of 10.2, wbc of 8.7 and platelets of 289. Chemistry showed sodium of 140, potassium of 3.7 and Cr of 1 .01. Urine tox was positive for cannabinoids, and serum alcohol level was pending. He is being admitted to be managed for acute opioid withdrawal. [facility] Medical History (Updated 10/20/21 @ 04:36 by Jacqueline Martinez) Alcohol use disorder Basal cell carcinoma (BCC) Chronic back pain Depression Dysthymia Emphysema lung Generalized anxiety disorder GERD (gastroesophageal reflux disease) Hemorrhoid Iron deficiency anemia Major depressive disorder, recurrent severe without psychotic features Osteoarthritis PAD (peripheral artery disease) Polysubstance abuse Smoker Substance abuse Home Medications albuterol sulfate 90 mcg/actuation aerosol inhaler 2 puff inhalation Q4H PRN shortness of breath or wheezing #8.5 grams 08/24/20 [Rx Last Taken Unknown] aspirin 81 mg tablet 81 mg PO DAILY Check with primary doctor 09/14/20 [History Last Taken Unknown] bupropion HCl 300 mg 24 hr tablet, extended release (Wellbutrin XL) 300 mg PO DAILY Check with primary doctor 10/20/21 [History Last Taken Unknown] ibuprofen 600 mg tablet (IBU) 600 mg PO TID PRN Pain 10/20/21 [History Last Taken Unknown] omeprazole 40 mg capsule,delayed release 40 mg PO DAILY Check with primary doctor 10/20/21 [History Last Taken Unknown] tiotropium 2.5 mcg-olodaterol 2.5 mcg/actuation mist for inhalation (Stiolto Respimat) 2 inh inhalation DAILY Check with primary doctor 10/20/21 [History Last Taken Unknown] Allergy/AdvReac Type Severity Reaction Status Date / Time buspirone [From BuSpar] Allergy Mild shaking, Verified 10/20/21 01:56 restless legs sucralfate [From Carafate] Allergy Other Verified 10/20/21 01:56 venom-honey bee Allergy Anaphylaxis Verified 10/20/21 01:56 [bee venom (honey bee)] Family History Mother Diabetes Heart disease Hypertension Thyroid disorder Ulcer Sister Asthma Heart disease Hypertension Cancer multiple myeloma Surgical History History of cataract extraction History of cholecystectomy (~2002) History of colonoscopy (~2018) Hx of endarterectomy Hx of local excision of skin lesion Social History Smoking Status: Current every day smoker tobacco type: cigarettes Tobacco: How many years used: 50 Electronic Cigarette Use: not used second hand exposure: No quit status: considering quitting counseling given: provider counseling ROS Constitutional Constitutional: Denies anorexia, change in weight, chills, fatigue, fever(s), malaise or weakness Eyes Eyes: Denies change in vision ENT HEENT: Denies dysphagia, headache(s) or sore throat Cardiovascular Cardiovascular: Denies chest pain, dyspnea on exertion, edema, lightheadedness, orthopnea, palpitations, paroxysmal nocturnal dyspnea, rapid heart rate or syncope Respiratory/Chest Respiratory/Chest: Denies cough, dyspnea, productive cough or shortness of breath at rest Gastrointestinal Gastrointestinal: Denies abdominal pain, constipation, diarrhea, nausea or vomiting Genitourinary Genitourinary: Denies dysuria Neurologic Neurologic: Denies confusion, dizziness, focal weakness, headache(s), seizures, syncope or tremor(s) Psychiatric Psychiatric: Denies anxiety or depression Endocrine Endocrinology: Denies change in body appearance Vital Signs Vital Signs Vital Signs: 10/20/21 01:53 10/20/21 03:04 Temperature 96.9 F L Temperature Source Temporal Pulse Rate 95 Respiratory Rate 18 Respiratory Effort Normal Non-Labored Respiratory Pattern Normal Blood Pressure 162/131 H Blood Pressure Mean 141 Pulse Ox 98 Oxygen Delivery Method Room Air Weight Weight: 124 lb 5.451 oz Body Mass Index (BMI) 17.8 Physical Exam Const alert, oriented x3 and no apparent distress General Appearance: cooperative HEENT normocephalic, head/scalp atraumatic, hearing grossly normal bilaterally and moist oral mucous membranes Mouth: oral and palatal mucosa normal Eyes PERRL, EOMs intact bilaterally and conjunctivae normal Neck no lymphadenopathy, supple and no JVD Resp normal respiratory effort, no retractions, no use of accessory muscles and clear to auscultation bilaterally Cardio regular rate, regular rhythm, S1 normal heart sound, S2 normal heart sound and no murmurs GI normal to inspection, nondistended, normoactive bowel sounds, soft to palpation, non-tender and non-distended Extremity normal to inspection, full ROM and no clubbing, cyanosis or edema Neuro oriented x3, CN's II-XII intact bilaterally, moves all extremities and no focal motor deficits Sensorium / Orientation: awake and alert Motor Exam: strength 5/5 throughout Psych affect normal Results Lab / Micro Data Result Diagrams: 10/20/21 02:45 10/20/21 02:40 Labs: Laboratory Results - last 24 hr 10/20/21 02:40: Sodium 140, Potassium 3.7, Chloride 108 H, Carbon Dioxide 26.0, Anion Gap 6, BUN 20 H, Creatinine 1.01, Estim Creat Clear Calc 56.62, Est GFR (MDRD) Af Amer 95, Est GFR (MDRD) Non-Af 78, BUN/Creatinine Ratio 19.8, Glucose 127 H, Calcium 8.5, Total Bilirubin 0.30, AST 16, ALT 18, Alkaline Phosphatase 72, Total Protein 6.5, Albumin 3.2, Globulin 3.3, Albumin/Globulin Ratio 1.0 10/20/21 02:45: WBC 8.7, RBC 3.62 L, Hgb 10.2 L, Hct 31.8 L, MCV 87.8, MCH 28.2, MCHC 32.1, RDW Std Deviation 54.2 H, RDW Coeff of Liliane 16.9 H, Plt Count 289, MPV 9.9, Immature Gran % (Auto) 0.200, Neut % (Auto) 61.8, Lymph % (Auto) 25.8, [place] % (Auto) 8.3, Eos % (Auto) 3.8, Baso % (Auto) 0.1, Absolute Neuts (auto) 5.4, Absolute Lymphs (auto) 2.25, Nucleated RBC % 0 10/20/21 02:50: Urine Opiates Screen NEGATIVE, Urine Methadone Screen NEGATIVE, Ur Barbiturates Screen NEGATIVE, Ur Phencyclidine Scrn NEGATIVE, Ur Amphetamines Screen NEGATIVE, MDMA (Ecstasy) Screen NEGATIVE, U Benzodiazepines Scrn NEGATIVE, Urine Cocaine Screen NEGATIVE, U Cannabinoids Screen POSITIVE H, Ur Drug Screen Comment Assessment & Plan Assessment/Plan (1) Acute opioid withdrawal: PLAN: Plan Acute opioid withdrawal * admit to med surg * start on opiate withdrawal protocol with buprenorphine * urine tox positive for cannabinoids * #History of COPD * not in exacerbation * on breathing treatment with bronchodilators and Stiolto respimat #GERD: on famotidine #Peripheral artery disease s/p stents: on aspirin DVT prophylaxis: low risk, encourage to ambulate Charges/Coding Visit Charges Inpatient E&M: 43449 Init Hosp L3
[2021-10-20 03:36] LABS: Alcohol, Blood (Medical)-Serum < 3.0 mg/dL
[2021-10-20 04:09] VITALS: BP 157/93; PULSE 91; RESP 16; TEMP 36.4; O2SAT 97
[2021-10-20 04:16] VITALS: BMI 16.6
[2021-10-20 04:34] VITALS: BP 146/70; PULSE 86; RESP 16; TEMP 36.6; O2SAT 97
--- NOTE | 2021-10-20 07:16 | PN.HOSP_ITS ---
Subjective Subjective Follow-up for acute opioid withdrawal syndrome Objective Data Objective Data Vital Signs: Vital Signs Temp Pulse Resp BP Pulse Ox O2 Del Method 97.9 F 86 16 146/70 H 97 Room Air 10/20/21 04:34 10/20/21 04:34 10/20/21 04:34 10/20/21 04:34 10/20/21 04:34 10/20/21 04:51 Oxygen Delivery Method Room Air Weight: 116 lb Body Mass Index (BMI) 16.6 Lab / Micro Data Result Diagrams: 10/20/21 02:45 10/20/21 02:40 Labs: Laboratory Results - last 24 hr 10/20/21 02:40: Sodium 140, Potassium 3.7, Chloride 108 H, Carbon Dioxide 26.0, Anion Gap 6, BUN 20 H, Creatinine 1.01, Estim Creat Clear Calc 56.62, Est GFR (MDRD) Af Amer 95, Est GFR (MDRD) Non-Af 78, BUN/Creatinine Ratio 19.8, Glucose 127 H, Calcium 8.5, Total Bilirubin 0.30, AST 16, ALT 18, Alkaline Phosphatase 72, Total Protein 6.5, Albumin 3.2, Globulin 3.3, Albumin/Globulin Ratio 1.0 10/20/21 02:40: Ethyl Alcohol < 3.0 10/20/21 02:45: WBC 8.7, RBC 3.62 L, Hgb 10.2 L, Hct 31.8 L, MCV 87.8, MCH 28.2, MCHC 32.1, RDW Std Deviation 54.2 H, RDW Coeff of Liliane 16.9 H, Plt Count 289, MPV 9.9, Immature Gran % (Auto) 0.200, Neut % (Auto) 61.8, Lymph % (Auto) 25.8, [place] % (Auto) 8.3, Eos % (Auto) 3.8, Baso % (Auto) 0.1, Absolute Neuts (auto) 5.4, Absolute Lymphs (auto) 2.25, Nucleated RBC % 0 10/20/21 02:50: Urine Opiates Screen NEGATIVE, Urine Methadone Screen NEGATIVE, Ur Barbiturates Screen NEGATIVE, Ur Phencyclidine Scrn NEGATIVE, Ur Amphetamines Screen NEGATIVE, MDMA (Ecstasy) Screen NEGATIVE, U Benzodiazepines Scrn NEGATIVE, Urine Cocaine Screen NEGATIVE, U Cannabinoids Screen POSITIVE H, Ur Drug Screen Comment Physical Exam Narrative Seen and examined General: Awake, lethargic, oriented x3. HEENT: Atraumatic, PERRLA, EOMI, Normocephalic Oral: No Gingival or Mucosal Lesions/ Ulcerations Neck: Supple, No JVD, Negative Carotid Bruits Lungs: Air entry diminished in bilateral lung bases. No crepitation/rhonchi Cardiovascular: Regular rate, Regular Rhythm, Normal S1, Normal S2, No murmurs Abdomen: Bowel Sounds Present, Soft, Non Tender, Non-Distended : No renal angle tenderness. No suprapubic tenderness. Extremities: No edema, Capillary Refill Less than 3 Seconds Skin: Small ecchymosis over bilateral upper extremities. Easy bruising. Musculoskeletal: No Tenderness to Palpation of Joints or Extremities Neurological: Cranial nerves II-XII grossly intact, DTR 2+/4 and Symmetrical, Neuro grossly intact Psych/Mental Status: Flat affect. No hallucination delusion or illusion Const alert, oriented x3 and no apparent distress General Appearance: cooperative HEENT normocephalic, head/scalp atraumatic, hearing grossly normal bilaterally and moist oral mucous membranes Eyes PERRL, EOMs intact bilaterally and conjunctivae normal Neck no lymphadenopathy, supple and no JVD Resp normal respiratory effort, no retractions, no use of accessory muscles and clear to auscultation bilaterally Cardio regular rate, regular rhythm, S1 normal heart sound, S2 normal heart sound and no murmurs GI normal to inspection, nondistended, normoactive bowel sounds, soft to palpation, non-tender and non-distended Extremity normal to inspection, full ROM and no clubbing, cyanosis or edema Neuro oriented x3, CN's II-XII intact bilaterally, moves all extremities and no focal motor deficits Sensorium / Orientation: awake and alert Motor Exam: strength 5/5 throughout Psych affect normal Assessment & Plan Assessment/Plan (1) Acute opioid withdrawal: PLAN: Plan 1. Acute opioid withdrawal * admit to med surg * start on opiate withdrawal protocol with buprenorphine * urine tox positive for cannabinoids 10/20: Patient is mild lethargy. Denies IV use of needles. Snorts fentanyl. 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 2. History of COPD * not in exacerbation * on breathing treatment with bronchodilators and Stiolto respimat #GERD: on famotidine #Peripheral artery disease s/p stents: on aspirin Chronic hepatitis C: Patient states he has completed the treatment in the past DVT prophylaxis: low risk, encourage to ambulate Charges/Coding Visit Charges Inpatient E&M: 85036 Subs Hosp L2
[2021-10-20 08:38] VITALS: BP 154/85; PULSE 69; RESP 18; TEMP 36.4; O2SAT 97
--- NOTE | 2021-10-20 11:26 | ADDICTION ---
This scenario writer met with PT to conduct ASAM, MSE, AUDIT, DUDIT assessments and to plan for d/c. PT A+Ox4 and participated actively. All assessments completed, faxed to [facility] and placed in PT's chart. PT plans to f/u with [facility] for follow-up outpatient counseling services. PT did not indicate a need for transportation post d/c from [facility].
[2021-10-20] MEDS: Ensure Plus High Protein 120 ML LIQUID PO ×3 (12:16→20:44)
[2021-10-20] MEDS: Buprenorphine HCl 2 MG TAB.SUBL SL ×2 (12:46→20:42)
[2021-10-20] MEDS: Methocarbamol 750 MG Tablet 1500 MG PO ×2 (12:49→20:42)
[2021-10-20] MEDS: Dicyclomine 10 MG Capsule 20 MG PO (12:49)
[2021-10-20 14:55] VITALS: BP 134/78; PULSE 74; RESP 18; TEMP 36.6; O2SAT 98
[2021-10-20 20:23] VITALS: BP 147/90; PULSE 80; RESP 18; TEMP 37.1; O2SAT 99
[2021-10-20] MEDS: hydrOXYzine PAM 25 MG Capsule 50 MG PO (20:42)
[2021-10-21 02:04] VITALS: BP 134/90; PULSE 71; RESP 18; TEMP 36.7; O2SAT 99
[2021-10-21] MEDS: hydrOXYzine PAM 25 MG Capsule 50 MG PO ×2 (04:40→22:17)
[2021-10-21] MEDS: Buprenorphine HCl 2 MG TAB.SUBL SL ×3 (04:40→20:14)
[2021-10-21] MEDS: Methocarbamol 750 MG Tablet 1500 MG PO (04:40)
[2021-10-21 08:45] VITALS: BP 134/88; PULSE 88; RESP 16; TEMP 36.6; O2SAT 96
--- NOTE | 2021-10-21 11:53 | PN.HOSP_ITS ---
Subjective Subjective Seen and examined. Follow-up for opioid withdrawal syndrome Patient's symptoms of leg cramps and muscle aches has improved. Denies abdominal pain or cramps. No nausea or vomiting. Overall feeling better Objective Data Objective Data Vital Signs: Vital Signs Temp Pulse Resp BP Pulse Ox O2 Del Method 97.9 F 88 16 134/88 H 96 Room Air 10/21/21 08:45 10/21/21 08:45 10/21/21 08:45 10/21/21 08:45 10/21/21 08:45 10/21/21 08:45 Oxygen Delivery Method Room Air Weight: 116 lb Body Mass Index (BMI) 16.6 Medical Nutrition Assessment Dietitian: Malnutrition Criteria Met Start: 10/20/21 10:10 Freq: Status: Active Protocol: Document 10/20/21 10:10 SUDHIR (Rec: 10/20/21 10:10 SUDHIR [id number]) Nutrition Malnutrition Evidence of Malnutrition Exists Yes Malnutrition (severe): Social/Behavioral/ Environmental Evidenced By Weight Loss (Severe),Physical Changes (Severe) Clinical Problem Chronic Disease or Condition Related Malnutrition Etiology severe related to substance/ alcohol abuse making it difficult for pt to consume adequate nutrition to meet est nutritional needs Signs/Symptoms as evidenced by 10.1% wt loss x 7 mo and fat/muscle loss ( temporal/buccal/orbital, clavicle, acromium, upper extremities, and lower extremities); BMI <17. Status Active Problem Recommendation Dietitian Recommendations/Changes Will liberalize diet to Regular d/t signs and symptoms of malnutrition. Will continue ensure plus high protein w/ medpass Will provide fortified foods tid and magic cup bid w/ meals for increased nutrition if consumed. Monitor for signs/symptoms of refeeding syndrome. Lab / Micro Data Result Diagrams: 10/20/21 02:45 10/20/21 02:40 Physical Exam Narrative Seen and examined General: Awake, alert and oriented x3. HEENT: Atraumatic, PERRLA, EOMI, Normocephalic Oral: No Gingival or Mucosal Lesions/ Ulcerations Neck: Supple, No JVD, Negative Carotid Bruits Lungs: Air entry diminished in bilateral lung bases. Bibasilar expiratory rhonchi Cardiovascular: Regular rate, Regular Rhythm, Normal S1, Normal S2, No murmurs Abdomen: Bowel Sounds Present, Soft, Non Tender, Non-Distended : No renal angle tenderness. No suprapubic tenderness. Extremities: No edema, Capillary Refill Less than 3 Seconds Skin: Small ecchymosis over bilateral upper extremities. Easy bruising. Musculoskeletal: No Tenderness to Palpation of Joints or Extremities Neurological: Cranial nerves II-XII grossly intact, DTR 2+/4 and Symmetrical, Neuro grossly intact Psych/Mental Status: Flat affect. No hallucination delusion or illusion Assessment & Plan Assessment/Plan (1) Acute opioid withdrawal: PLAN: Plan This is 65-year-old question gentleman with history of chronic opioid use admitted with acute opioid withdrawal syndrome 1. Acute opioid withdrawal with history of chronic opioid use disorder with tolerance and dependence: * admit to med surg * start on opiate withdrawal protocol with buprenorphine along with other supportive medications as needed for symptom control * urine tox positive for cannabinoids 10/20: Patient is mild lethargy. Denies IV use of needles. Snorts fentanyl. 180 capture manager consult for rehab planning. 10/21: Patient is awake and oriented x3. Overall feeling better. Continue buprenorphine as per protocol 2. History of COPD * not in exacerbation * on breathing treatment with bronchodilators and Stiolto respimat #GERD: on famotidine #Peripheral artery disease s/p stents: on aspirin Chronic hepatitis C: Patient states he has completed the treatment in the past DVT prophylaxis: low risk, encourage to ambulate Charges/Coding Visit Charges Inpatient E&M: 17890 Subs Hosp L2
[2021-10-21 15:00] VITALS: BP 148/84; PULSE 62; RESP 18; TEMP 36.7; O2SAT 97
[2021-10-21] MEDS: Ensure Plus High Protein 120 ML LIQUID PO (20:14)
[2021-10-21 21:00] VITALS: BP 162/95; PULSE 77; RESP 18; TEMP 36.8; O2SAT 97
[2021-10-21] MEDS: Gabapentin 300 MG Capsule PO (22:17)
[2021-10-21 23:56] VITALS: BP 138/88
[2021-10-22] MEDS: cloNIDine HCl 0.1 MG Tablet PO ×2 (00:02→20:58)
[2021-10-22 03:00] VITALS: BP 130/86; PULSE 78; RESP 18; TEMP 36.9; O2SAT 96
[2021-10-22] MEDS: Buprenorphine HCl 2 MG TAB.SUBL SL ×2 (05:15→12:49)
--- NOTE | 2021-10-22 07:51 | PN.HOSP_ITS ---
Subjective Subjective Follow-up for acute opioid withdrawal syndrome. Patient has cough which is worsening for last 1 month sometimes he brings phlegm whitish colored. He has history of COPD/emphysema. Used to smoke 3 packs/day and has cut down to 3 cigarettes/day Objective Data Objective Data Vital Signs: Vital Signs Temp Pulse Resp BP Pulse Ox O2 Del Method 98.4 F 78 18 130/86 H 96 Room Air 10/22/21 03:00 10/22/21 03:00 10/22/21 03:00 10/22/21 03:00 10/22/21 03:00 10/22/21 03:00 Oxygen Delivery Method Room Air Weight: 116 lb Body Mass Index (BMI) 16.6 Medical Nutrition Assessment Dietitian: Malnutrition Criteria Met Start: 10/20/21 10:10 Freq: Status: Active Protocol: Document 10/20/21 10:10 SUDHIR (Rec: 10/20/21 10:10 SUDHIR [id number]) Nutrition Malnutrition Evidence of Malnutrition Exists Yes Malnutrition (severe): Social/Behavioral/ Environmental Evidenced By Weight Loss (Severe),Physical Changes (Severe) Clinical Problem Chronic Disease or Condition Related Malnutrition Etiology severe related to substance/ alcohol abuse making it difficult for pt to consume adequate nutrition to meet est nutritional needs Signs/Symptoms as evidenced by 10.1% wt loss x 7 mo and fat/muscle loss ( temporal/buccal/orbital, clavicle, acromium, upper extremities, and lower extremities); BMI <17. Status Active Problem Recommendation Dietitian Recommendations/Changes Will liberalize diet to Regular d/t signs and symptoms of malnutrition. Will continue ensure plus high protein w/ medpass Will provide fortified foods tid and magic cup bid w/ meals for increased nutrition if consumed. Monitor for signs/symptoms of refeeding syndrome. Lab / Micro Data Result Diagrams: 10/20/21 02:45 10/20/21 02:40 Physical Exam Narrative Seen and examined General: Awake, alert and oriented x3. HEENT: Atraumatic, PERRLA, EOMI, Normocephalic Oral: No Gingival or Mucosal Lesions/ Ulcerations Neck: Supple, No JVD, Negative Carotid Bruits Lungs: Air entry diminished in bilateral lung bases. Bibasilar expiratory rhonchi. No hypoxia or tachypnea Cardiovascular: Regular rate, Regular Rhythm, Normal S1, Normal S2, No murmurs Abdomen: Bowel Sounds Present, Soft, Non Tender, Non-Distended : No renal angle tenderness. No suprapubic tenderness. Extremities: No edema, Capillary Refill Less than 3 Seconds Skin: Small ecchymosis over bilateral upper extremities. Easy bruising. Musculoskeletal: No Tenderness to Palpation of Joints or Extremities Neurological: Cranial nerves II-XII grossly intact, DTR 2+/4 and Symmetrical, Neuro grossly intact Psych/Mental Status: Flat affect. No hallucination delusion or illusion Assessment & Plan Assessment/Plan (1) Acute opioid withdrawal: PLAN: Plan This is 65-year-old question gentleman with history of chronic opioid use admitted with acute opioid withdrawal syndrome 1. Acute opioid withdrawal with history of chronic opioid use disorder with tolerance and dependence: * admit to med surg * start on opiate withdrawal protocol with buprenorphine along with other supportive medications as needed for symptom control * urine tox positive for cannabinoids 10/20: Patient is mild lethargy. Denies IV use of needles. Snorts fentanyl. [facility] senior facilities manager consult for rehab planning. 10/21: Patient is awake and oriented x3. Overall feeling better. Continue bup renorphine as per protocol 2. History of COPD * not in exacerbation * on breathing treatment with bronchodilators and Stiolto respimat 10/18: Started on Mucinex D, incentive spirometry and Pep. Has worse productive cough for last 1 month. #GERD: on famotidine #Peripheral artery disease s/p stents: on aspirin Chronic hepatitis C: Patient states he has completed the treatment in the past DVT prophylaxis: low risk, encourage to ambulate Charges/Coding Visit Charges Inpatient E&M: 38942 Subs Hosp L2
[2021-10-22 10:10] VITALS: BP 112/66; PULSE 81; RESP 18; TEMP 36.7; O2SAT 95
[2021-10-22] MEDS: Ensure Plus High Protein 120 ML LIQUID PO ×2 (10:10→15:07)
[2021-10-22] MEDS: guaiFENesin/D-Methorphan TAB.SR.12H 1 TABLET PO ×2 (10:10→20:53)
[2021-10-22 15:10] VITALS: BP 151/95; PULSE 77; RESP 18; TEMP 36.8; O2SAT 95
[2021-10-22] MEDS: Methocarbamol 750 MG Tablet 1500 MG PO (20:52)
[2021-10-22] MEDS: hydrOXYzine PAM 25 MG Capsule 50 MG PO (20:52)
[2021-10-22 21:00] VITALS: BP 170/91; PULSE 73; RESP 16; TEMP 36.7; O2SAT 99
[2021-10-23] MEDS: Buprenorphine HCl 2 MG TAB.SUBL SL (00:26)
[2021-10-23 05:54] VITALS: BP 154/89; PULSE 64; RESP 16; TEMP 36.9; O2SAT 96
--- NOTE | 2021-10-23 09:35 | DCINST_ITS ---
Discharge Instructions Diet Discharge Diet: No restrictions Activity Discharge Activity: Return to Normal Activity Follow Up Care Test Results: Test results from this visit will be discussed in further detail at your follow- up appointment, if applicable. Discharge Plan Admission Admit Date/Time: 10/20/21 03:38 Primary Reason for Your Visit: Acute opioid withdrawal Attending Provider: Tracy Tyson Primary Care Provider: Naif Rojas Consulting Providers: Blanca Jenkins ; Sylvester Morse Instructions Additional Instructions / Restrictions: You are strongly advised to continue to avoid use of opioids. You are also advised to stop smoking. Follow-up with your outpatient drug rehab program as scheduled. Discharge Orders/Prescriptions Prescriptions: Continued albuterol sulfate 90 mcg/actuation HFA aerosol inhaler 2 puff inhalation Q4H PRN (Reason: shortness of breath or wheezing) Qty: 8.5 3RF Rx Instructions: administer with spacer aspirin 81 mg Tablet 81 mg PO DAILY omeprazole 40 mg capsule,delayed release(DR/EC) 40 mg PO DAILY bupropion HCl [Wellbutrin XL] 300 mg tablet extended release 24 hr 300 mg PO DAILY Rx Instructions: Take q am. Stiolto Respimat 2.5-2.5 mcg/actuation mist 2 inh inhalation DAILY ibuprofen [IBU] 600 mg tablet 600 mg PO TID PRN (Reason: Pain) Referrals / Follow Up: Naif Rojas MD [Primary Care Provider] - In 1 Week Disposition Disposition (needs filled in before D/C Order can be placed): Home, Self Care
--- NOTE | 2021-10-23 09:38 | PCM.DC.SUM ---
Providers Date of Admission: 10/20/21 Date of Discharge: 10/23/21 Primary Care Physician: Dr. Naif Rojas MD Reason For Visit: ACUTE OPIOID WITHDRAWL Diagnosis Discharge Diagnosis (1) Acute opioid withdrawal: Status: Acute Code(s): F11.93 - Opioid use, unspecified with withdrawal (2) Severe protein-calorie malnutrition: Status: Acute Code(s): E43 - Unspecified severe protein-calorie malnutrition Medications at Discharge Home Medications albuterol sulfate 90 mcg/actuation aerosol inhaler 2 puff inhalation Q4H PRN shortness of breath or wheezing #8.5 grams 08/24/20 aspirin 81 mg tablet 81 mg PO DAILY Check with primary doctor 09/14/20 bupropion HCl 300 mg 24 hr tablet, extended release (Wellbutrin XL) 300 mg PO DAILY Check with primary doctor 10/20/21 ibuprofen 600 mg tablet (IBU) 600 mg PO TID PRN Pain 10/20/21 omeprazole 40 mg capsule,delayed release 40 mg PO DAILY Check with primary doctor 10/20/21 tiotropium 2.5 mcg-olodaterol 2.5 mcg/actuation mist for inhalation (Stiolto Respimat) 2 inh inhalation DAILY Check with primary doctor 10/20/21 Hospital Course Operations None Procedures None Summary of Care Provided Minutes Spent on Discharge: 35 Hospital Course: 66-year-old male with past medical history of opioid dependence, uses some form of fentanyl mixture called Slow daily, comes in with opioid withdrawal symptoms of hot and cold flashes, muscle spasm, nausea and tremors. Patient had been trying to quit on his own. He was admitted to the [facility] floor and managed under opioid withdrawal protocol. He continued to improve. He was seen by nutrition for severe protein calorie malnutrition. He was put on supplements. Patient was seen by the [facility] propeller layout worker. Patient will follow-up in the outpatient. On the day of discharge, patient's blood pressure appeared to be slightly elevated. Repeat blood pressure checks manually showed blood pressure to be 140/80. He will follow-up with his primary care doctor in the outpatient. Physical Exam Narrative Physical exam: General: Alert, Oriented x3, Cooperative, appears cachectic HEENT: Atraumatic Oral: Moist Mucosa Neck: Supple Lungs: Clear to auscultation Cardiovascular: HS I+II, regular, no murmurs Abdomen: Bowel Sounds Present, Soft, Non Tender Extremities: No edema Skin: No rashes, No breakdown Neurological: Grossly intact Psych/Mental Status: Appropriate Medical Records Data Medical Nutrition Assessment Dietitian: Malnutrition Criteria Met Start: 10/20/21 10:10 Freq: Status: Active Protocol: Document 10/20/21 10:10 SUDHIR (Rec: 10/20/21 10:10 [facility] [id number]) Nutrition Malnutrition Evidence of Malnutrition Exists Yes Malnutrition (severe): Social/Behavioral/ Environmental Evidenced By Weight Loss (Severe),Physical Changes (Severe) Clinical Problem Chronic Disease or Condition Related Malnutrition Etiology severe related to substance/ alcohol abuse making it difficult for pt to consume adequate nutrition to meet est nutritional needs Signs/Symptoms as evidenced by 10.1% wt loss x 7 mo and fat/muscle loss ( temporal/buccal/orbital, clavicle, acromium, upper extremities, and lower extremities); BMI <17. Status Active Problem Recommendation Dietitian Recommendations/Changes Will liberalize diet to Regular d/t signs and symptoms of malnutrition. Will continue ensure plus high protein w/ medpass Will provide fortified foods tid and magic cup bid w/ meals for increased nutrition if consumed. Monitor for signs/symptoms of refeeding syndrome. Weight / BMI Weight Weight: 52.617 kg Body Mass Index (BMI) 16.6 ABG / Lab / Microbiology Data Result Diagrams: 10/20/21 02:45 10/20/21 02:40 D/C Instructions Discharge Diet: No restrictions Meaningful Use Info Meaningful Use Diagnoses (Choose all that apply): None applicable Discharge Plan Admission Admit Date/Time: 10/20/21 03:38 Primary Reason for Your Visit: Acute opioid withdrawal Attending Provider: Tracy Tyson Primary Care Provider: Naif Rojas Consulting Providers: Blanca Jenkins ; Sylvester Morse Instructions Additional Instructions / Restrictions: You are strongly advised to continue to avoid use of opioids. You are also advised to stop smoking. Follow-up with your outpatient drug rehab program as scheduled. Discharge Orders/Prescriptions Prescriptions: Continued albuterol sulfate 90 mcg/actuation HFA aerosol inhaler 2 puff inhalation Q4H PRN (Reason: shortness of breath or wheezing) Qty: 8.5 3RF Rx Instructions: administer with spacer aspirin 81 mg Tablet 81 mg PO DAILY omeprazole 40 mg capsule,delayed release(DR/EC) 40 mg PO DAILY bupropion HCl [Wellbutrin XL] 300 mg tablet extended release 24 hr 300 mg PO DAILY Rx Instructions: Take q am. Stiolto Respimat 2.5-2.5 mcg/actuation mist 2 inh inhalation DAILY ibuprofen [IBU] 600 mg tablet 600 mg PO TID PRN (Reason: Pain) Referrals / Follow Up: Naif Rojas MD [Primary Care Provider] - In 1 Week Disposition Disposition (needs filled in before D/C Order can be placed): Home, Self Care Charges/Coding Visit Charges Inpatient E&M: 44112 Disch Hosp
[2021-10-23] MEDS: Ensure Plus High Protein 120 ML LIQUID PO (09:50)
[2021-10-23] MEDS: guaiFENesin/D-Methorphan TAB.SR.12H 1 TABLET PO (09:50)
[2021-10-23] MEDS: Aspirin 81 MG TAB.CHEW PO (09:51)
[2021-10-23] MEDS: Pantoprazole Sodium 40 MG Tablet PO (09:51)
[2021-10-23 10:14] VITALS: BP 140/86; PULSE 86
[2021-10-23 10:22] LABS: Absolute Neutrophil Count 4.7 X10^3/uL (2.0-7.7); Basophil# 0.02 X10^3/uL; Basophil% 0.2 % (0-1); Eosinophil# 0.43 X10^3/uL; Eosinophils% 5.2 % (0-5); Hematocrit 37.8 % (40-54); Hemoglobin 12.2 g/dL (13.0-16.5); Lymphocyte % 28.8 % (19-41); Mean Corp Hgb Conc 32.3 g/dL (32-36); Mean Corpuscular Hgb 27.9 pg (27.0-32.0); Mean Corpuscular Volume 86.5 fL (80-94); Mean Platelet Vol. 9.8 fl (6.2-12.0); Monocyte# 0.76 X10^3/uL; Monocyte% 9.1 % (0-10); NRBC Flagged by Analyzer 0 % (0-5); Neutrophil # 4.68 X10^3/uL (2.7-7.7); Neutrophil % 56.2 % (47-70); Platelet Count 338 K/mm3 (150-450); RBC Distribution Width CV 16.7 % (11.6-14.6); RBC Distribution Width SD 53.5 fl (35.1-43.9); Red Blood Count 4.37 M/mm3 (4.6-6.2); White Blood Count 8.3 K/mm3 (4.4-11.0)
[2021-10-23 11:18] LABS: ALB/GLOB Ratio 0.8 RATIO (0.9-2.4); AST(SGOT) 12 U/L (15-37); Alanine Aminotransfer ALT/SGPT 16 U/L (16-61); Albumin, Serum 3.3 g/dL (3.2-5.0); Alkaline Phosphatase 71 U/L (45-117); Anion Gap 6 (5-15); BUN 27 mg/dL (7-18); BUN/Creat Ratio 25.7 RATIO (10-20); Calcium,Total 8.8 mg/dL (8.5-10.1); Chloride 106 mmol/L (98-107); Creatinine, Serum 1.05 mg/dL (0.70-1.30); EST Glomerular Filtration Rate 75 mL/min (>60); Est Glom Filt Rate - Afr Amer 90 mL/min (>60); Estimated Creatinine Clearance 50.11 ml/min; Ferritin 15 ng/mL (26-388); Globulin 3.9 g/dL (2.2-4.2); Glucose 133 mg/dL (74-106); Iron 50 ug/dL (65-175); Iron Binding Capacity,Total 315 ug/dL (250-450); PERCENT IRON SATURATION 15.9 % (15.0-55.0); Potassium 4.2 mmol/L (3.5-5.1); Protein, Total 7.2 g/dL (6.4-8.2); Sodium Level 140 mmol/L (136-145)
== END 2021-10-23 10:46 | disposition home or self-care (01) | DRG 896 ==
LOC: ED 02:46 → MS3 03:48
PROVIDERS: Admitting Provider Student in an Organized Health Care Education/Training Program; Emergency Provider Emergency Medicine; PCP Family Medicine; Visit Provider Internal Medicine
DX: F11.23 Opioid dependence with withdrawal (principal); E43 Unspecified severe protein-calorie malnutrition; F33.2 Major depressive disorder, recurrent severe without psychotic features; Z68.1 Body mass index [BMI] 19.9 or less, adult; B18.2 Chronic viral hepatitis C; D50.9 Iron deficiency anemia, unspecified; F17.210 Nicotine dependence, cigarettes, uncomplicated; I73.9 Peripheral vascular disease, unspecified; J43.9 Emphysema, unspecified; K21.9 Gastro-esophageal reflux disease without esophagitis; F34.1 Dysthymic disorder; F41.1 Generalized anxiety disorder; G89.29 Other chronic pain; Z79.82 Long term (current) use of aspirin; Z79.899 Other long term (current) drug therapy
CPT/HCPCS: 80053; 80307; 82077; 82728; 83540; 83550; 85025; 94667; 99285

== ENCOUNTER 2021-11-02 18:47 | Inpatient (IN) | payer MEDICARE, MEDICAID, SELFPAY ==
[2021-11-02 18:50] VITALS: BP 145/129; PULSE 102; RESP 18; TEMP 35.7; O2SAT 97; BMI 17.4
[2021-11-02 19:19] LABS: Absolute Lymphocyte Count 3.39 X10^3/uL (0.83-4.51); Absolute Neutrophil Count 4.4 X10^3/uL (2.0-7.7); Basophil# 0.03 X10^3/uL; Basophil% 0.3 % (0-1); Eosinophil# 0.32 X10^3/uL; Eosinophils% 3.6 % (0-5); Hematocrit 34.2 % (40-54); Hemoglobin 10.8 g/dL (13.0-16.5); Lymphocyte # 3.39 X10^3/ul (0.83-4.51); Lymphocyte % 37.6 % (19-41); Mean Corp Hgb Conc 31.6 g/dL (32-36); Mean Corpuscular Hgb 28.1 pg (27.0-32.0); Mean Corpuscular Volume 89.1 fL (80-94); Mean Platelet Vol. 9.3 fl (6.2-12.0); Monocyte# 0.81 X10^3/uL; NRBC Flagged by Analyzer 0 % (0-5); Neutrophil # 4.43 X10^3/uL (2.7-7.7); Neutrophil % 49.2 % (47-70); Platelet Count 386 K/mm3 (150-450); RBC Distribution Width SD 54.5 fl (35.1-43.9); Red Blood Count 3.84 M/mm3 (4.6-6.2)
--- NOTE | 2021-11-02 19:19 | HP.PCM.HOS_ITS ---
HPI - General General Date of Admission: 11/02/21 Date of Service: 11/02/21 Chief Complaint: Acute Opiate Withdrawal HPI Narrative The patient is a 66 y/o M w/ PMHx: EtOH abuse, Polysubstance abuse including Fentanyl w/ Chronic Hepatitis C, PAD, HTN, HLD, COPD, Tobacco use, Depression and Anxiety, Fe deficiency, GERD, Chronic back pain, recently discharged on 10/20/21 following admission and treatment for acute opiate withdrawal who now re- presents to the [facility] ED on 11/02/21 with history of upon most recent discharge resumption of snorting fentanyl approximately 4 days following as he reports that he had recurrent withdrawal type symptoms and did not have early follow-up with 180 but is very eager to attempt detoxification again with last usage earlier in the day in the morning with onset of fatigue, malaise, body aches, chills and sweats as well as nausea and restlessness prompting reevaluation. He notes that he already spoke with [facility] and the intention is on day of discharge she will transition immediately to their facility for evaluation and close follow-up. Work-up in the ED included T96.3, heart rate 102, BP 145/129, resp iratory rate 18, 97% on room air, pending CBC, BMP, UDS and ethyl alcohol level upon requested evaluation of patient. [facility] Medical History Alcohol use disorder Basal cell carcinoma (BCC) Chronic back pain Depression Dysthymia Emphysema lung Generalized anxiety disorder GERD (gastroesophageal reflux disease) Hemorrhoid Iron deficiency anemia Major depressive disorder, recurrent severe without psychotic features Osteoarthritis PAD (peripheral artery disease) Polysubstance abuse Smoker Substance abuse Home Medications albuterol sulfate 90 mcg/actuation aerosol inhaler 2 puff inhalation Q4H PRN shortness of breath or wheezing #8.5 grams 08/24/20 [Rx Last Taken 11/01/21] aspirin 81 mg tablet 81 mg PO DAILY Check with primary doctor 09/14/20 [History Last Taken 11/01/21] bupropion HCl 300 mg 24 hr tablet, extended release (Wellbutrin XL) 300 mg PO DAILY Check with primary doctor 10/20/21 [History Last Taken 11/02/21] ibuprofen 600 mg tablet (IBU) 600 mg PO TID PRN Pain 10/20/21 [History Last Taken 11/01/21] omeprazole 40 mg capsule,delayed release 40 mg PO DAILY Check with primary doctor 10/20/21 [History Last Taken 11/02/21] tiotropium 2.5 mcg-olodaterol 2.5 mcg/actuation mist for inhalation (Stiolto Respimat) 2 inh inhalation DAILY Check with primary doctor 10/20/21 [History Last Taken 11/02/21] Allergy/AdvReac Type Severity Reaction Status Date / Time buspirone [From BuSpar] Allergy Mild shaking, Verified 11/02/21 18:50 restless legs sucralfate [From Carafate] Allergy Other Verified 11/02/21 18:50 venom-honey bee Allergy Anaphylaxis Verified 11/02/21 18:50 [bee venom (honey bee)] Family History Mother Diabetes Heart disease Hypertension Thyroid disorder Ulcer Sister Asthma Heart disease Hypertension Cancer multiple myeloma other (Patient denies any marked paternal family history. Notes his father pas sed in his 90s with no marked medical history.) Surgical History History of cataract extraction History of cholecystectomy (~2002) History of colonoscopy (~2018) Hx of endarterectomy Hx of local excision of skin lesion S/P peripheral artery angioplasty with stent placement Social History (Updated 11/02/21 @ 19:[address] Elvira Sanchez MD) household members: friend(s) Smoking Status: Current every day smoker tobacco type: cigarettes Smoking packs per day: 0.5 Smoking cigarettes per day: 10.0 Tobacco: How many years used: 50 Electronic Cigarette Use: not used second hand exposure: No quit status: considering quitting counseling given: provider counseling alcohol intake: former details: Sober since 2016. substance use type: other details: Fentanyl, snorted, does have prior IVDA history. ROS ROS Narrative Admission Review of Systems: CONSTITUTIONAL: No weight loss, fever, + chills, weakness or fatigue. HEENT: Eyes: No visual loss, blurred vision, double vision or yellow sclerae. Ears, Nose, Throat: No hearing loss, sneezing, congestion, runny nose or sore throat. SKIN: + Various staged ecchymoses to the extremities. CARDIOVASCULAR: No chest pain, chest pressure or chest discomfort, palpitations, edema, orthopnea, syncopal events. RESPIRATORY: No shortness of breath, cough or sputum, wheezing, hemoptysis. GASTROINTESTINAL: + anorexia, nausea, abdominal cramping, No vomiting, melena, BRBPR. GENITOURINARY: No dysuria, frequency, urgency or retention. NEUROLOGICAL: No headache, dizziness, syncope, paralysis, ataxia, numbness or tingling in the extremities, focal weakness, change in bowel or bladder control, seizure. MUSCULOSKELETAL: + muscle, back pain, joint pain or stiffness. HEMATOLOGIC: + anemia, bleeding or bruising. LYMPHATICS: No enlarged nodes. No history of splenectomy. PSYCHIATRIC: + history of depression or anxiety. ENDOCRINOLOGIC: + reports of sweating, cold or heat intolerance. No polyuria or polydipsia. ALLERGIES: + history of rhinitis. Vital Signs Vital Signs Vital Signs: 11/02/21 18:50 Temperature 96.3 F L Temperature Source Temporal Pulse Rate 102 H Respiratory Rate 18 Blood Pressure 145/129 H Blood Pressure Mean 134 Pulse Ox 97 Oxygen Delivery Method Room Air Weight Weight: 121 lb 7.595 oz Body Mass Index (BMI) 17.4 Physical Exam Narrative Physical Examination: General: Awake, alert, oriented x 3 and cooperative, seated upright in the ED bed, anxious, restless. Skin: Normal color, normal turgor, no icterus, no cyanosis except for various staged ecchymoses to the extremities noted. HEENT: AT/NC, EOMI, PERRLA, mildly dry MM, no carotid bruits or JVD noted. Lungs: Diminished, greater bases, appropriate effort, no rales, ronchi or wheezing. Heart: Mildly tachycardic with regular rhythm; no gallop, rub audible. Abdomen: Soft, thin cachectic habitus, NTTP, ND, normal BS, mild HM. Extremities: No cyanosis, clubbing, or edema. Neurological: Patient awake, alert, oriented as noted, cognitive function intact; pupils equally reactive to light and accommodation, cranial nerves II-XI I grossly normal, moving all 4 extremities, no focal deficits, strength mildly global decrease secondary to acute presentation, restless, mildly agitated, evidence of withdrawal. Psychiatric: Affect appears fatigued, restless, mildly agitated, no acute evidence of depressive or anxiety feelings but does have underlying history. Results Lab / Micro Data Result Diagrams: 11/02/21 19:07 11/02/21 19:07 Labs: Laboratory Results - last 24 hr 11/02/21 19:07: Ur Drug Screen Comment Assessment & Plan Assessment/Plan (1) Opiate withdrawal: PLAN: Plan The patient is a 66 y/o M w/ PMHx: EtOH abuse, Polysubstance abuse including Fentanyl w/ Chronic Hepatitis C, PAD, HTN, HLD, COPD, Tobacco use, Depression and Anxiety, Fe deficiency, GERD, Chronic back pain, recently discharged on 10/20/21 following admission and treatment for acute opiate withdrawal who now re- presents to the [facility] ED on 11/02/21 with history of upon most recent discharge resumption of snorting fentanyl approximately 4 days following as he reports that he had recurrent withdrawal type symptoms and did not have early follow-up with 180 but is very eager to attempt detoxification again with last usage earlier in the day in the morning with onset of opiate withdrawal symptoms. #1. Acute Opiate Withdrawal: Will admit to [facility], routine labs including CBC, CMP, urine for drug screen pending upon evaluation will initiate and continue on protocol with tapering course of Subutex, as needed tylenol, ibuprofen, bowel regimen, gabapentin, Bentyl, Vistaril, methocarbamol, clonidine, PRN nightly trazodone for insomnia, IV fluids, IV antiemetics. Once patient clinically improved and completion of taper nearing will plan consultation with case management for transition to next level of rehabilitation care. #2. Polysubstance Abuse w/ Chronic Hepatitis C, reports completing treatment prior: HIV, hepatitis panel to assess for co-infection pending. Encouraged PCP establishment and follow-up. #3. Hypertension, uncontrolled: Patient with elevated BP upon ED presentation, possibly associated with opiate withdrawal however from current list not on regimen, will clarify and add if appropriate otherwise we will continue monitor and if necessary add oral regimen, as needed IV hydralazine in interim. #4. Hyperlipidemia: Not on statin therapy, defer to outpatient. #5. Carotid disease, PAD: Status post prior peripheral stenting noted in prior history and also reportedly carotid endarterectomy, we will continue patient home aspirin, not on a statin nor hypertensive regimen however BP elevated above goal, continue to monitor and if appropriate add regimen given history. #6. Chronic anemia, iron deficiency: Pending admission CBC, from current list not on iron supplementation, encourage continued outpatient follow-up. From prior list had been on iron supplementation. #7. Chronic COPD: We will temporarily hold home inhaler and in the interim transition to twice daily budesonide, PRN albuterol, HOB, IS parameters. #8. Tobacco Abuse: Encouraged cessation, inpatient consultation per RT, NR if desired. #9. Anxiety and depression: We will continue patient home to preparing regimen, strongly encourage continued outpatient follow-up is likely tied in with his opiate abuse, #1, 180 and case management consulted as noted. From prior lists remotely had been on paroxetine and bupropion. #10. GERD: We will continue patient home PPI. #11. Severe protein calorie malnutrition: Evidenced by significant BMI decr eased, obvious muscle and fat loss, nutrition consulted for recommendations. #12. DVT prophylaxis: Given current type of presentation will encourage strongly ambulation and if appears to decreased would have low threshold to add SCDs/chemoprophylaxis given underlying notable comorbidities. Charges/Coding Visit Charges Inpatient E&M: 48666 Init Hosp L3
--- NOTE | 2021-11-02 19:19 | CM.ED ---
MARY JANE Note SW met with patient. He indicated that he is at the hospital as [facility] recommended it. Patient said I am ashamed and embarrased about being her. Patient said no one told me I could have withdrawal symptoms after I left.. I didn't know. Patient used fentanyl in response to his withdrawal symptoms. Patient last used fentanyl today at 4-5 am. Patient did a line. Patient said that a 20 piece lasts 1 1/2 days. Patient is familiar with rules of the [facility] program which include belongings locked, no outside food or visitors and no cell phone. Patient verbalized understanding. SW asked if he could have his brush and SW said that all belongings need to be locked. MARY JANE called Dalia at [facility] and advised her of [facility] admission. Hernán will follow up in the morning. Plan: [facility] admission.
--- NOTE | 2021-11-02 19:22 | EDS_ITS ---
HPI History of Present Illness Chief Complaint: Substance Abuse Narrative Narrative: 66-year-old male presenting for detox from fentanyl. He states he uses every day. Patient states $20 bag lasts him about a day and a half. Is not sure how much this is. He states he only snorts. He does not inject or smoke. Patient states he was recently here for detox and after being discharged home he states his withdrawal symptoms returned. He states he did not know what to do so he started using again. Patient reports that he was previously not an everyday user but about a year ago his housemate was killed at their home. He states that after this time he started using more more. He does state that he feels anxious and has cramping sometimes. He has not nauseous or vomiting. [facility] Medical History Alcohol use disorder Basal cell carcinoma (BCC) Chronic back pain Depression Dysthymia Emphysema lung Generalized anxiety disorder GERD (gastroesophageal reflux disease) Hemorrhoid Iron deficiency anemia Major depressive disorder, recurrent severe without psychotic features Osteoarthritis PAD (peripheral artery disease) Polysubstance abuse Smoker Substance abuse Home Medications albuterol sulfate 90 mcg/actuation aerosol inhaler 2 puff inhalation Q4H PRN shortness of breath or wheezing #8.5 grams 08/24/20 [Rx Last Taken 11/01/21] aspirin 81 mg tablet 81 mg PO DAILY Check with primary doctor 09/14/20 [History Last Taken 11/01/21] bupropion HCl 300 mg 24 hr tablet, extended release (Wellbutrin XL) 300 mg PO DAILY Check with primary doctor 10/20/21 [History Last Taken 11/02/21] ibuprofen 600 mg tablet (IBU) 600 mg PO TID PRN Pain 10/20/21 [History Last Taken 11/01/21] omeprazole 40 mg capsule,delayed release 40 mg PO DAILY Check with primary doctor 10/20/21 [History Last Taken 11/02/21] tiotropium 2.5 mcg-olodaterol 2.5 mcg/actuation mist for inhalation (Stiolto Respimat) 2 inh inhalation DAILY Check with primary doctor 10/20/21 [History Last Taken 11/02/21] Allergy/AdvReac Type Severity Reaction Status Date / Time buspirone [From BuSpar] Allergy Mild shaking, Verified 11/02/21 18:50 restless legs sucralfate [From Carafate] Allergy Other Verified 11/02/21 18:50 venom-honey bee Allergy Anaphylaxis Verified 11/02/21 18:50 [bee venom (honey bee)] Family History Mother Diabetes Heart disease Hypertension Thyroid disorder Ulcer Sister Asthma Heart disease Hypertension Cancer multiple myeloma Surgical History History of cataract extraction History of cholecystectomy (~2002) History of colonoscopy (~2018) Hx of endarterectomy Hx of local excision of skin lesion S/P peripheral artery angioplasty with stent placement Social History (Updated 11/02/21 @ 19:[address] Elvira Sanchez MD) household members: friend(s) Smoking Status: Current every day smoker tobacco type: cigarettes Smoking packs per day: 0.5 Smoking cigarettes per day: 10.0 Tobacco: How many years used: 50 Electronic Cigarette Use: not used second hand exposure: No quit status: considering quitting counseling given: provider counseling alcohol intake: former details: Sober since 2015. substance use type: other details: Fentanyl, snorted, does have prior IVDA history. ROS ROS ED Constitutional Constitutional ED: Denies chills or fever(s) Eyes Eyes: Denies change in vision ENT ENT ED: Denies rhinorrhea or sore throat Cardiovascular Cardiovascular: Denies chest pain or palpitations Respiratory/Chest Respiratory/Chest: Denies cough or dyspnea Gastrointestinal Gastrointestinal: Denies abdominal pain or constipation Genitourinary Genitourinary ED: Denies dysuria or LMP (females 10-50) Musculoskeletal Musculoskeletal: Reports other Details: Muscle cramping Integumentary Denies abscess or Abrasions Neurologic Neurologic: Denies headache(s) or paresthesias Psychiatric Psychiatric: Reports anxiety EXAM Physical Exam Const Vital Signs: 11/02/21 18:50 Temperature 96.3 F L Temperature Source Temporal Pulse Rate 102 H Respiratory Rate 18 Blood Pressure 145/129 H Blood Pressure Mean 134 Pulse Ox 97 Oxygen Delivery Method Room Air Positive well nourished General Appearance ED: NAD; Negative for pallor HEENT Reports moist mucous membranes atraumatic Eyes PERRL and EOMs intact bilaterally General Eye ED: Negative for pale conjunctiva or scleral icterus Chest Wall inspection of chest normal Resp normal respiratory effort and clear to auscultation bilaterally Auscultation: Negative for rales, rhonchi or wheezes Cardio regular rate and regular rhythm Neuro oriented x3 and CN's II-XII intact bilaterally Sensorium / Orientation: alert Speech: speech normal Gait (Neuro): normal gait Motor Exam: strength 5/5 throughout Psych mental status grossly normal Mood & Affect: tearful Skin General Skin Exam: Negative for jaundice or pallor MDM MDM MDM Narrative Medical decision making narrative: Patient presenting for fentanyl detox. He has mild symptoms of withdrawal currently. Last use this morning. Patient CBC shows no leukocytosis. Hemoglobin stable at 10.8. Renal function electrolytes unremarkable. EtOH negative. Urine drug screen positive for MDMA, amphetamines, cannabinoids. LFTs are pending. I spoke with the hospitalist for admission for detox. He is transferred in stable condition. Labs will be followed on the floor. Impression: 1. Request for fentanyl detox 2. MDMA abuse 3. Cannabinoid use Lab Data Attestation: I reviewed the patient's lab results. Labs: Laboratory Results - last 24 hr 11/02/21 11/02/21 11/02/21 19:07 19:07 19:07 WBC 9.0 RBC 3.84 L Hgb 10.8 L Hct 34.2 L MCV 89.1 MCH 28.1 MCHC 31.6 L RDW Std Deviation 54.5 H RDW Coeff of Liliane 17.0 H Plt Count 386 MPV 9.3 Immature Gran % (Auto) 0.300 Neut % (Auto) 49.2 Lymph % (Auto) 37.6 [place] % (Auto) 9.0 Eos % (Auto) 3.6 Baso % (Auto) 0.3 Absolute Neuts (auto) 4.4 Absolute Lymphs (auto) 3.39 Nucleated RBC % 0 Sodium 139 Potassium 4.2 Chloride 103 Carbon Dioxide 26.0 Anion Gap 10 BUN 25 H Creatinine 1.03 Estim Creat Clear Calc 53.50 Est GFR (MDRD) Af Amer 92 Est GFR (MDRD) Non-Af 76 BUN/Creatinine Ratio 24.3 H Glucose 110 H Calcium 9.0 Urine Opiates Screen Urine Methadone Screen Ur Barbiturates Screen Ur Phencyclidine Scrn Ur Amphetamines Screen MDMA (Ecstasy) Screen U Benzodiazepines Scrn Urine Cocaine Screen U Cannabinoids Screen Ur Drug Screen Comment Ethyl Alcohol < 3.0 11/02/21 19:07 WBC RBC Hgb Hct MCV MCH MCHC RDW Std Deviation RDW Coeff of Liliane Plt Count MPV Immature Gran % (Auto) Neut % (Auto) Lymph % (Auto) Ramsey % (Auto) Eos % (Auto) Baso % (Auto) Absolute Neuts (auto) Absolute Lymphs (auto) Nucleated RBC % Sodium Potassium Chloride Carbon Dioxide Anion Gap BUN Creatinine Estim Creat Clear Calc Est GFR (MDRD) Af Amer Est GFR (MDRD) Non-Af BUN/Creatinine Ratio Glucose Calcium Urine Opiates Screen NEGATIVE Urine Methadone Screen NEGATIVE Ur Barbiturates Screen NEGATIVE Ur Phencyclidine Scrn NEGATIVE Ur Amphetamines Screen POSITIVE H MDMA (Ecstasy) Screen POSITIVE H U Benzodiazepines Scrn NEGATIVE Urine Cocaine Screen NEGATIVE U Cannabinoids Screen POSITIVE H Ur Drug Screen Comment Ethyl Alcohol Discharge Plan Triage Chief Complaint: Substance Abuse ED Provider: Ren Greene Dx/Rx/DC Orders Primary Care Provider: Naif Rojas
[2021-11-02 19:42] LABS: Amphetamine Urine VISTA POSITIVE (<1000 ng/mL); Barbiturate Urine VISTA NEGATIVE (< 200 ng/mL); Benzodiazepine Urine VISTA NEGATIVE (< 200 ng/mL); Cocaine Urine VISTA NEGATIVE (< 300 ng/mL); Ecstacy Urine VISTA POSITIVE (< 500 ng/mL); Methadone Urine VISTA NEGATIVE (< 300 ng/mL); PCP Urine VISTA NEGATIVE (< 25 ng/mL); THC Urine VISTA POSITIVE (< 50 ng/mL); Vista UDS pH Range 5
[2021-11-02 19:47] LABS: Anion Gap 10 (5-15); BUN 25 mg/dL (7-18); BUN/Creat Ratio 24.3 RATIO (10-20); Chloride 103 mmol/L (98-107); Creatinine, Serum 1.03 mg/dL (0.70-1.30); EST Glomerular Filtration Rate 76 mL/min (>60); Est Glom Filt Rate - Afr Amer 92 mL/min (>60); Glucose 110 mg/dL (74-106); Potassium 4.2 mmol/L (3.5-5.1); Sodium Level 139 mmol/L (136-145)
[2021-11-02 19:53] LABS: Alcohol, Blood (Medical)-Serum < 3.0 mg/dL
[2021-11-02 20:15] VITALS: BP 138/91; PULSE 75; RESP 16; TEMP 36.7; O2SAT 95
[2021-11-02 20:38] VITALS: BMI 16.9
[2021-11-02 20:45] VITALS: BP 147/84; PULSE 72; RESP 16; TEMP 36.8; O2SAT 98
[2021-11-02 21:19] LABS: AST(SGOT) 16 U/L (15-37); Alanine Aminotransfer ALT/SGPT 17 U/L (16-61); Albumin, Serum 3.5 g/dL (3.2-5.0); Alkaline Phosphatase 73 U/L (45-117); Bilirubin, Direct 0.09 mg/dL (0.00-0.30); Globulin 3.7 g/dL (2.2-4.2); Magnesium 2.2 mg/dL (1.6-2.6); Phosphorus 3.8 mg/dL (2.5-4.9); Protein, Total 7.2 g/dL (6.4-8.2)
[2021-11-02] MEDS: hydrOXYzine PAM 25 MG Capsule 50 MG PO (21:33)
[2021-11-02] MEDS: Lactated Ringers 1,000 ML 125 ML IV (21:35)
[2021-11-02 21:48] LABS: HIV - WCH Non-Reactive (Nonreactive)
[2021-11-02] MEDS: MELATONIN 10 MG TABLET PO (23:57)
[2021-11-02] MEDS: Ensure Plus High Protein 120 ML LIQUID PO (23:57)
[2021-11-03] VITALS (7 sets, daily range): BP systolic 130–148; BP diastolic 74–91; PULSE 69–81; RESP 16–20; TEMP 36.6–36.9; O2SAT 95–100
--- NOTE | 2021-11-03 07:12 | PN.HOSP_ITS ---
Subjective Subjective Follow-up for acute opioid withdrawal syndrome. Objective Data Objective Data Vital Signs: Vital Signs Temp Pulse Resp BP Pulse Ox O2 Del Method 98.1 F 69 16 130/90 H 100 Room Air 11/03/21 05:39 11/03/21 05:39 11/03/21 05:39 11/03/21 05:39 11/03/21 05:39 11/03/21 05:39 Oxygen Delivery Method Room Air Weight: 118 lb 1.6 oz Body Mass Index (BMI) 16.9 Intake & Output: Intake and Output for Last 24 Hours 11/01/21 11/02/21 11/03/21 23:59 23:59 23:59 Intake Total 1000 / 1000 Balance 1000 / 1000 Lab / Micro Data Result Diagrams: 11/02/21 19:07 11/02/21 19:07 Labs: Laboratory Results - last 24 hr 11/02/21 19:07: WBC 9.0, RBC 3.84 L, Hgb 10.8 L, Hct 34.2 L, MCV 89.1, MCH 28.1, MCHC 31.6 L, RDW Std Deviation 54.5 H, RDW Coeff of Liliane 17.0 H, Plt Count 386, MPV 9.3, Immature Gran % (Auto) 0.300, Neut % (Auto) 49.2, Lymph % (Auto) 37.6, [place] % (Auto) 9.0, Eos % (Auto) 3.6, Baso % (Auto) 0.3, Absolute Neuts (auto) 4.4, Absolute Lymphs (auto) 3.39, Nucleated RBC % 0 11/02/21 19:07: Sodium 139, Potassium 4.2, Chloride 103, Carbon Dioxide 26.0, Anion Gap 10, BUN 25 H, Creatinine 1.03, Estim Creat Clear Calc 53.50, Est GFR (MDRD) Af Amer 92, Est GFR (MDRD) Non-Af 76, BUN/Creatinine Ratio 24.3 H, Glucose 110 H, Calcium 9.0 11/02/21 19:07: Ethyl Alcohol < 3.0 11/02/21 19:07: Urine Opiates Screen NEGATIVE, Urine Methadone Screen NEGATIVE, Ur Barbiturates Screen NEGATIVE, Ur Phencyclidine Scrn NEGATIVE, Ur Amphetamines Screen POSITIVE H, MDMA (Ecstasy) Screen POSITIVE H, U Benzodiazepines Scrn NEGATIVE, Urine Cocaine Screen NEGATIVE, U Cannabinoids Screen POSITIVE H, Ur Drug Screen Comment 11/02/21 20:11: Phosphorus 3.8, Magnesium 2.2, Total Bilirubin 0.30, Direct Bilirubin 0.09, AST 16, ALT 17, Alkaline Phosphatase 73, Total Protein 7.2, Albumin 3.5, Globulin 3.7 11/02/21 20:11: HIV 1&2 Antibody Non-Reactive Physical Exam Narrative Patient states he was using IV needles and has history of chronic hep C but was treated with interferon and antiviral in . Since then he is snorting opioids mainly fentanyl. Denies chronic stigmata of liver disease or cirrhosis. Physical exam General: Alert, Oriented x3, Cooperative HEENT: Atraumatic, PERRLA, EOMI, Normocephalic Oral: No Gingival or Mucosal Lesions/ Ulcerations Neck: Supple, No JVD, Negative Carotid Bruits Lungs: Air entry diminished in bilateral lung bases. No crepitation/rhonchi Cardiovascular: Regular rate, Regular Rhythm, Normal S1, Normal S2, No murmurs Abdomen: Bowel Sounds Present, Soft, Non Tender, Non-Distended : No renal angle tenderness. No suprapubic tenderness. Extremities: No edema, Capillary Refill Less than 3 Seconds Skin: No rashes, No breakdown Musculoskeletal: No Tenderness to Palpation of Joints or Extremities Neurological: Cranial nerves II-XII grossly intact, DTR 2+/4 and Symmetrical Psych/Mental Status: Flat affect. Assessment & Plan Assessment/Plan (1) Opiate withdrawal: PLAN: Plan The patient is a 66 y/o M is being admitted with acute opioid withdrawal symptoms. Patient last use was morning on the day of admission. #1. Acute Opiate Withdrawal syndrome with history of chronic opioid use, de pendence and tolerance: Patient has history of recurrent opioid withdrawal syndrome in the past. Patient is admitted on opioid withdrawal syndrome order set with buprenorphine along with other adjunctive medications for control of symptoms. CI NA score. #2. Polysubstance Abuse w/ Chronic Hepatitis C, completed treatment in : HIV 1 and 2 antibody negative. Hep C preliminary reactive. Hep B surface antibody reactive, surface antigen nonreactive. Probably vaccinated with hepatitis B but does not have hep B core antibody. Will need hepatitis B core IgM, core total antibody hepatitis C RNA viral load for adequate diagnosis and further management in outpatient clinic setting. Hep C antibody may be positive even after treatment. Since patient is not admitted for treatment of hepatitis therefore advised further testing and management as an outpatient. #3. Hypertension, uncontrolled: Blood pressure elevated in ED presentation. Currently in acceptable limit. Probably due to opioid withdrawal. Monitor BP. #4. Hyperlipidemia: Not on statin therapy, defer to outpatient. #5. Carotid disease, PAD: Status post prior peripheral stenting noted in prior history and also reportedly carotid endarterectomy,continue patient home aspirin, not on a statin nor hypertensive regimen however BP elevated above goal, continue to monitor and if appropriate add regimen given history. #6. Chronic anemia, iron deficiency: on iron supplementation. #7. COPD: On twice daily budesonide, PRN albuterol, HOB, IS parameters. #8. Tobacco Abuse: Encouraged cessation, inpatient consultation #9. Anxiety and depression case management consulted as noted. Patient was on paroxetine and bupropion. #10. GERD: l continue patient home PPI. #11. Severe protein calorie malnutrition: Evidenced by significant BMI decreased, obvious muscle and fat loss, nutrition consulted for recommendations. #12. DVT prophylaxis: Given current type of presentation will encourage strongly ambulation and if appears to decreased would have low threshold to add SCDs/chemoprophylaxis given underlying notable comorbidities. Charges/Coding Visit Charges Inpatient E&M: 58336 Subs Hosp L2
[2021-11-03 08:34] LABS: Hepatitis B Surface Antibody Reactive; Hepatitis B Surface Antigen Non-Reactive (Nonreactive); Hepatitis C Antibody Preliminary Reactive (Nonreactive)
[2021-11-03] MEDS: Pantoprazole Sodium 40 MG Tablet PO (09:08)
[2021-11-03] MEDS: buPROPion (XL) 300 MG TABLET.XL PO (09:08)
[2021-11-03] MEDS: Aspirin 81 MG TAB.CHEW PO (09:09)
[2021-11-03] MEDS: Ensure Plus High Protein 120 ML LIQUID PO ×3 (09:10→23:32)
[2021-11-03] MEDS: Methocarbamol 750 MG Tablet 1500 MG PO ×2 (09:14→23:32)
[2021-11-03] MEDS: cloNIDine HCl 0.1 MG Tablet PO (09:14)
[2021-11-03] MEDS: Budesonide Respules 0.5 MG/2 ML AMPUL.NEB. INHALATION ×2 (11:44→19:14)
--- NOTE | 2021-11-03 14:02 | ADDICTION ---
TW met with Pt to fill out ASAM, AUDIT, DUDIT, MSE, Discharge Plan and JORDI. Pt was cooperative, answered all questions asked, and demonstrated insight into his current situation. Pt did not note any transportation needs. Pt was agreeable to f/u with a diagnostic assessment. This was scheduled for 11/07/21 at 2PM with Vicki at [facility].
[2021-11-03] MEDS: Ibuprofen 600 MG Tablet PO (14:35)
[2021-11-03] MEDS: Gabapentin 300 MG Capsule PO (14:36)
[2021-11-03] MEDS: Buprenorphine HCl 2 MG TAB.SUBL SL ×2 (14:57→23:31)
[2021-11-03] MEDS: cloNIDine HCl 0.2 MG Tablet PO ×2 (15:54→23:32)
[2021-11-03] MEDS: MELATONIN 10 MG TABLET PO (23:32)
[2021-11-04 06:43] VITALS: BP 142/83; PULSE 69; RESP 16; TEMP 36.8; O2SAT 96
[2021-11-04] MEDS: Methocarbamol 750 MG Tablet 1500 MG PO ×3 (06:46→22:14)
[2021-11-04] MEDS: Buprenorphine HCl 2 MG TAB.SUBL SL ×3 (06:46→22:14)
[2021-11-04] MEDS: Albuterol 2.5 MG/3 ML VIAL.NEB. INHALATION (07:18)
[2021-11-04 07:19] VITALS: PULSE 77; RESP 16; O2SAT 97
[2021-11-04] MEDS: Budesonide Respules 0.5 MG/2 ML AMPUL.NEB. INHALATION ×2 (07:19→19:04)
[2021-11-04 09:36] VITALS: BP 118/74; PULSE 70; RESP 18; TEMP 36.6; O2SAT 97
[2021-11-04] MEDS: buPROPion (XL) 300 MG TABLET.XL PO (09:42)
[2021-11-04] MEDS: Pantoprazole Sodium 40 MG Tablet PO (09:42)
[2021-11-04] MEDS: Aspirin 81 MG TAB.CHEW PO (09:42)
[2021-11-04] MEDS: cloNIDine HCl 0.2 MG Tablet PO ×2 (09:43→20:38)
[2021-11-04] MEDS: Ibuprofen 600 MG Tablet PO ×2 (09:45→20:41)
[2021-11-04] MEDS: Ensure Plus High Protein 120 ML LIQUID PO ×4 (09:46→20:38)
--- NOTE | 2021-11-04 13:07 | PCM.PN.HOSP ---
Subjective Subjective Follow-up for opioid withdrawal. Opioid withdrawal symptoms are better controlled. Less anxiety. Objective Data Objective Data Vital Signs: Vital Signs Temp Pulse Resp BP Pulse Ox O2 Del Method 97.8 F 70 18 118/74 97 Room Air 11/04/21 09:36 11/04/21 09:36 11/04/21 09:36 11/04/21 09:36 11/04/21 09:36 11/04/21 10:00 Oxygen Delivery Method Room Air Weight: 118 lb 1.591 oz Body Mass Index (BMI) 16.9 Intake & Output: Intake and Output for Last 24 Hours 11/02/21 11/03/21 11/04/21 23:59 23:59 23:59 Intake Total 1620 / 1620 Balance 1620 / 1620 Medical Nutrition Assessment Dietitian: Malnutrition Criteria Met Start: 11/03/21 12:30 Freq: Status: Active Protocol: Document 11/03/21 12:30 AG (Rec: 11/03/21 12:30 AG [id number]) Nutrition Malnutrition Evidence of Malnutrition Exists Yes Malnutrition (severe): Chronic Evidenced By Suboptimal Energy Intake ( Severe),Physical Changes ( Severe) Clinical Problem Chronic Disease or Condition Related Malnutrition Etiology severe, chronic malnutrition related to inadequate energy intake Signs/Symptoms as evidenced by estimated PO intake meeting <75% of estimated energy needs >3 months; severe muscle wasting, fat loss evident per physical exam in clavicle, orbital, temporal, and acromion areas; BMI 16.9 Status Active Problem Recommendation Dietitian Recommendations/Changes continue regular diet as tolerated and ensure plus high protein 120mL 4x/day w/ medpass given signs/symptoms of malnutrition. Lab / Micro Data Result Diagrams: 11/02/21 19:07 11/02/21 19:07 Physical Exam Narrative Patient does not have tremors. Sitting up in the bed. No hallucination Physical exam General: Alert, Oriented x3, Cooperative HEENT: Atraumatic, PERRLA, EOMI, Normocephalic Oral: No Gingival or Mucosal Lesions/ Ulcerations Neck: Supple, No JVD, Negative Carotid Bruits Lungs: Air entry diminished in bilateral lung bases. No crepitation/rhonchi Cardiovascular: Regular rate, Regular Rhythm, Normal S1, Normal S2, No murmurs Abdomen: Bowel Sounds Present, Soft, Non Tender, Non-Distended : No renal angle tenderness. No suprapubic tenderness. Extremities: No edema, Capillary Refill Less than 3 Seconds Skin: No rashes, No breakdown Musculoskeletal: No Tenderness to Palpation of Joints or Extremities Neurological: Cranial nerves II-XII grossly intact, DTR 2+/4 and Symmetrical. No seizure Psych/Mental Status: Flat affect. Assessment & Plan Assessment/Plan (1) Opiate withdrawal: PLAN: Plan The patient is a 66 y/o M is being admitted with acute opioid withdrawal symptoms. Patient last use was morning on the day of admission. #1. Acute Opiate Withdrawal syndrome with history of chronic opioid use, dependence and tolerance: Patient has history of recurrent opioid withdrawal syndrome in the past. Patient is admitted on opioid withdrawal syndrome order set with buprenorphine along with other adjunctive medications for control of symptoms. CINA score. 11/04: CINA score 1. #2. Polysubstance Abuse w/ Chronic Hepatitis C, completed treatment in : HIV 1 and 2 antibody negative. Hep C preliminary reactive. Hep B surface antibody reactive, surface antigen nonreactive. Probably vaccinated with hepatitis B but does not have hep B core antibody. Will need hepatitis B core IgM, core total antibody hepatitis C RNA viral load for adequate diagnosis and further management in outpatient clinic setting. Hep C antibody may be positive even after treatment. Since patient is not admitted for treatment of hepatitis therefore advised further testing and management as an outpatient. 11/04 patient states he was using IV needles and has history of chronic hep C but was treated with interferon and antiviral in . #3. Hypertension, uncontrolled: Blood pressure elevated in ED presentation. Currently in acceptable limit. Probably due to opioid withdrawal. 11/04: Blood pressure is normal 118/74. #4. Hyperlipidemia: Not on statin therapy, defer to outpatient. #5. Carotid disease, PAD: Status post prior peripheral stenting noted in prior history and also reportedly carotid endarterectomy,continue patient home aspirin, not on a statin nor hypertensive regimen however BP elevated above goal, continue to monitor and if appropriate add regimen given history. #6. Chronic anemia, iron deficiency: on iron supplementation. #7. COPD: On twice daily budesonide, PRN albuterol, HOB, IS parameters. #8. Tobacco Abuse: Encouraged cessation, inpatient consultation #9. Anxiety and depression case management consulted as noted. Patient was on paroxetine and bupropion. #10. GERD: l continue patient home PPI. #11. Severe protein calorie malnutrition: Evidenced by significant BMI decreased, obvious muscle and fat loss, nutrition consulted for recommendations. #12. DVT prophylaxis: Given current type of presentation will encourage strongly ambulation and if appears to decreased would have low threshold to add SCDs/chemoprophylaxis given underlying notable comorbidities. Charges/Coding Visit Charges Inpatient E&M: 22293 Subs Hosp L2
[2021-11-04 15:04] VITALS: BP 144/87; PULSE 73; RESP 18; TEMP 36.4; O2SAT 98
[2021-11-04 19:04] VITALS: PULSE 81; RESP 12
[2021-11-04 20:36] VITALS: BP 156/95; PULSE 77; RESP 18; TEMP 36.9; O2SAT 96
[2021-11-04] MEDS: hydrOXYzine PAM 25 MG Capsule 50 MG PO (20:41)
[2021-11-04] MEDS: MELATONIN 10 MG TABLET PO (22:14)
[2021-11-05 03:14] VITALS: BP 131/80; PULSE 64; RESP 18; TEMP 36.3; O2SAT 97
[2021-11-05] MEDS: Buprenorphine HCl 2 MG TAB.SUBL SL (06:28)
[2021-11-05 07:07] VITALS: PULSE 70; RESP 16; O2SAT 96
[2021-11-05] MEDS: Budesonide Respules 0.5 MG/2 ML AMPUL.NEB. INHALATION (07:07)
--- NOTE | 2021-11-05 07:19 | DCINST_ITS ---
Discharge Instructions Diet Discharge Diet: No restrictions Activity Discharge Activity: Return to Normal Activity and May Not Drive Dressing / Incision Call your doctor if you observe: Fever of 101 or Higher, Coldness, Increased Pain, Numbness or Tingling, Change in Color, Inability to urinate, Inability to have a bowel movement, Shortness of breath, Dizziness, Fainting spells, Swelling in the ankles, Chest pain, Prolonged hiccupping, Increased palpitations (irregular heartbeat), Calf discomfort and Uncontrolled pain Follow Up Care Test Results: Test results from this visit will be discussed in further detail at your follow- up appointment, if applicable. Discharge Plan Admission Admit Date/Time: 11/02/21 19:15 Primary Reason for Your Visit: Acute opioid withdrawal syndrome Attending Provider: Sylvester Morse Primary Care Provider: Naif Rojas Consulting Providers: Elvira Sanchez Discharge Orders/Prescriptions Prescriptions: Continued albuterol sulfate 90 mcg/actuation HFA aerosol inhaler 2 puff inhalation Q4H PRN (Reason: shortness of breath or wheezing) Qty: 8.5 3RF Rx Instructions: administer with spacer aspirin 81 mg Tablet 81 mg PO DAILY omeprazole 40 mg capsule,delayed release(DR/EC) 40 mg PO DAILY bupropion HCl [Wellbutrin XL] 300 mg tablet extended release 24 hr 300 mg PO DAILY Rx Instructions: Take q am. Stiolto Respimat 2.5-2.5 mcg/actuation mist 2 inh inhalation DAILY ibuprofen [IBU] 600 mg tablet 600 mg PO TID PRN (Reason: Pain) Referrals / Follow Up: Jorge Hare DO [Med Staff - Active Staff] - Within 1 Month (For history of COPD) Naif Rojas MD [Primary Care Provider] - In 1 Week Disposition Disposition (needs filled in before D/C Order can be placed): Home, Self Care
[2021-11-05] MEDS: cloNIDine HCl 0.2 MG Tablet PO (09:29)
[2021-11-05] MEDS: Pantoprazole Sodium 40 MG Tablet PO (09:29)
[2021-11-05] MEDS: buPROPion (XL) 300 MG TABLET.XL PO (09:29)
[2021-11-05] MEDS: Aspirin 81 MG TAB.CHEW PO (09:29)
[2021-11-05 09:30] VITALS: BP 121/78; PULSE 81; RESP 18; TEMP 36.9; O2SAT 96
--- NOTE | 2021-11-05 12:20 | PCM.DC.SUM ---
Providers Date of Admission: 11/02/21 Date of Discharge: 11/05/21 Primary Care Physician: Dr. Naif Rojas MD Reason For Visit: ACUTE OPIATE WITHDRAWAL Diagnosis Discharge Diagnosis (1) Opiate withdrawal: Status: Acute Code(s): F11.93 - Opioid use, unspecified with withdrawal Plan The patient is a 66 y/o M is being admitted with acute opioid withdrawal symptoms. Patient last use was morning on the day of admission. #1. Acute Opiate Withdrawal syndrome with history of chronic opioid use, dependence and tolerance: Patient has history of recurrent opioid withdrawal syndrome in the past. Patient is admitted on opioid withdrawal syndrome order set with buprenorphine along with other adjunctive medications for control of symptoms. CINA score. 11/04: CINA score 1. 11/05: Patient withdrawal symptoms resolved. Patient has outpatient follow-up for substance use revamp tomorrow on 11/06. Advised quitting opioid withdrawal. #2. Polysubstance Abuse w/ Chronic Hepatitis C, completed treatment in : HIV 1 and 2 antibody negative. Hep C preliminary reactive. Hep B surface antibody reactive, surface antigen nonreactive. Probably vaccinated with hepatitis B but does not have hep B core antibody. Will need hepatitis B core IgM, core total antibody hepatitis C RNA viral load for adequate diagnosis and further management in outpatient clinic setting. Hep C antibody may be positive even after treatment. Since patient is not admitted for treatment of hepatitis therefore advised further testing and management as an outpatient. 11/04 patient states he was using IV needles and has history of chronic hep C but was treated with interferon and antiviral in . #3. Hypertension, uncontrolled: Blood pressure elevated in ED presentation. Currently in acceptable limit. Probably due to opioid withdrawal. 11/04: Blood pressure is normal 118/74. #4. Hyperlipidemia: Not on statin therapy, defer to outpatient. #5. Carotid disease, PAD: Status post prior peripheral stenting noted in prior history and also reportedly carotid endarterectomy,continue patient home aspirin, not on a statin nor hypertensive regimen however BP elevated above goal, continue to monitor and if appropriate add regimen given history. #6. Chronic anemia, iron deficiency: on iron supplementation. #7. COPD: On twice daily budesonide, PRN albuterol, HOB, IS parameters. #8. Tobacco Abuse: Encouraged cessation, inpatient consultation #9. Anxiety and depression case management consulted as noted. Patient was on paroxetine and bupropion. #10. GERD: l continue patient home PPI. #11. Severe protein calorie malnutrition: Evidenced by significant BMI decreased, obvious muscle and fat loss, nutrition consulted for recommendations. #12. DVT prophylaxis: Given current type of presentation will encourage strongly ambulation and if appears to decreased would have low threshold to add SCDs/chemoprophylaxis given underlying notable comorbidities. Medications at Discharge Home Medications albuterol sulfate 90 mcg/actuation aerosol inhaler 2 puff inhalation Q4H PRN shortness of breath or wheezing #8.5 grams 08/24/20 aspirin 81 mg tablet 81 mg PO DAILY Check with primary doctor 09/14/20 bupropion HCl 300 mg 24 hr tablet, extended release (Wellbutrin XL) 300 mg PO DAILY Check with primary doctor 10/20/21 ibuprofen 600 mg tablet (IBU) 600 mg PO TID PRN Pain 10/20/21 omeprazole 40 mg capsule,delayed release 40 mg PO DAILY Check with primary doctor 10/20/21 tiotropium 2.5 mcg-olodaterol 2.5 mcg/actuation mist for inhalation (Stiolto Respimat) 2 inh inhalation DAILY Check with primary doctor 10/20/21 Physical Exam Narrative No acute withdrawal symptoms. Patient is feeling good. Wants to go home Physical exam General: Alert, Oriented x3, Cooperative HEENT: Atraumatic, PERRLA, EOMI, Normocephalic Oral: No Gingival or Mucosal Lesions/ Ulcerations Neck: Supple, No JVD, Negative Carotid Bruits Lungs: Air entry diminished in bilateral lung bases. No crepitation/rhonchi Cardiovascular: Regular rate, Regular Rhythm, Normal S1, Normal S2, No murmurs Abdomen: Bowel Sounds Present, Soft, Non Tender, Non-Distended : No renal angle tenderness. No suprapubic tenderness. Extremities: No edema, Capillary Refill Less than 3 Seconds Skin: No rashes, No breakdown Musculoskeletal: No Tenderness to Palpation of Joints or Extremities Neurological: Cranial nerves II-XII grossly intact, DTR 2+/4 and Symmetrical. No seizure Psych/Mental Status: Flat affect. Medical Records Data Medical Nutrition Assessment Dietitian: Malnutrition Criteria Met Start: 11/03/21 12:30 Freq: Status: Active Protocol: Document 11/03/21 12:30 AG (Rec: 11/03/21 12:30 AG [id number]) Nutrition Malnutrition Evidence of Malnutrition Exists Yes Malnutrition (severe): Chronic Evidenced By Suboptimal Energy Intake ( Severe),Physical Changes ( Severe) Clinical Problem Chronic Disease or Condition Related Malnutrition Etiology severe, chronic malnutrition related to inadequate energy intake Signs/Symptoms as evidenced by estimated PO intake meeting <75% of estimated energy needs >3 months; severe muscle wasting, fat loss evident per physical exam in clavicle, orbital, temporal, and acromion areas; BMI 16.9 Status Active Problem Recommendation Dietitian Recommendations/Changes continue regular diet as tolerated and ensure plus high protein 120mL 4x/day w/ medpass given signs/symptoms of malnutrition. Weight / BMI Weight Weight: 118 lb 1.591 oz Body Mass Index (BMI) 16.9 ABG / Lab / Microbiology Data Result Diagrams: 11/02/21 19:07 11/02/21 19:07 D/C Instructions Discharge Diet: No restrictions Call your doctor if you observe: Fever of 101 or Higher, Coldness, Increased Pain, Numbness or Tingling, Change in Color, Inability to urinate, Inability to have a bowel movement, Shortness of breath, Dizziness, Fainting spells, Swelling in the ankles, Chest pain, Prolonged hiccupping, Increased palpitations (irregular heartbeat), Calf discomfort and Uncontrolled pain Meaningful Use Info Meaningful Use Diagnoses (Choose all that apply): None applicable Discharge Plan Admission Admit Date/Time: 11/02/21 19:15 Primary Reason for Your Visit: Acute opioid withdrawal syndrome Attending Provider: Sylvester Morse Primary Care Provider: Naif Rojas Consulting Providers: Elvira Sanchez Discharge Orders/Prescriptions Prescriptions: Continued albuterol sulfate 90 mcg/actuation HFA aerosol inhaler 2 puff inhalation Q4H PRN (Reason: shortness of breath or wheezing) Qty: 8.5 3RF Rx Instructions: administer with spacer aspirin 81 mg Tablet 81 mg PO DAILY omeprazole 40 mg capsule,delayed release(DR/EC) 40 mg PO DAILY bupropion HCl [Wellbutrin XL] 300 mg tablet extended release 24 hr 300 mg PO DAILY Rx Instructions: Take q am. Stiolto Respimat 2.5-2.5 mcg/actuation mist 2 inh inhalation DAILY ibuprofen [IBU] 600 mg tablet 600 mg PO TID PRN (Reason: Pain) Referrals / Follow Up: Jorge Hare DO [Med Staff - Active Staff] - Within 1 Month (For history of COPD) Naif Rojas MD [Primary Care Provider] - In 1 Week Disposition Disposition (needs filled in before D/C Order can be placed): Home, Self Care Charges/Coding Visit Charges Inpatient E&M: 43538 Disch Hosp
== END 2021-11-05 09:41 | disposition home or self-care (01) | DRG 896 ==
LOC: ED 19:33 → MS3 20:07
PROVIDERS: Admitting Provider Family Medicine; Emergency Provider Student in an Organized Health Care Education/Training Program; PCP Family Medicine; Visit Provider Internal Medicine
DX: F11.23 Opioid dependence with withdrawal (principal); E43 Unspecified severe protein-calorie malnutrition; F33.2 Major depressive disorder, recurrent severe without psychotic features; Z68.1 Body mass index [BMI] 19.9 or less, adult; B18.2 Chronic viral hepatitis C; F17.210 Nicotine dependence, cigarettes, uncomplicated; D50.9 Iron deficiency anemia, unspecified; J43.9 Emphysema, unspecified; I73.9 Peripheral vascular disease, unspecified; E78.5 Hyperlipidemia, unspecified; K21.9 Gastro-esophageal reflux disease without esophagitis; I10 Essential (primary) hypertension; Z79.82 Long term (current) use of aspirin; F34.1 Dysthymic disorder; F41.1 Generalized anxiety disorder; G89.29 Other chronic pain; Z23 Encounter for immunization; Z79.899 Other long term (current) drug therapy
CPT/HCPCS: 36415; 80048; 80076; 80307; 82077; 83735; 84100; 85025; 86703; 86706; 86803; 87340; 94640; 97802; 99283; 99406; G0008; J7120; 90686

== ENCOUNTER 2021-11-23 11:55 | Inpatient (IN) | payer MEDICARE, MEDICAID, SELFPAY ==
[2021-11-23 11:57] VITALS: BP 170/91; PULSE 79; RESP 14; TEMP 36.8; O2SAT 98; BMI 17.5
[2021-11-23 13:40] LABS: Absolute Lymphocyte Count 2.58 X10^3/uL (0.83-4.51); Absolute Neutrophil Count 4.9 X10^3/uL (2.0-7.7); Basophil# 0.03 X10^3/uL; Basophil% 0.4 % (0-1); Eosinophil# 0.13 X10^3/uL; Eosinophils% 1.6 % (0-5); Hemoglobin 11.2 g/dL (13.0-16.5); Lymphocyte # 2.58 X10^3/ul (0.83-4.51); Lymphocyte % 31.7 % (19-41); Mean Corpuscular Volume 87.5 fL (80-94); Mean Platelet Vol. 10.4 fl (6.2-12.0); Monocyte# 0.54 X10^3/uL; Monocyte% 6.6 % (0-10); NRBC Flagged by Analyzer 0 % (0-5); Neutrophil # 4.85 X10^3/uL (2.7-7.7); Neutrophil % 59.5 % (47-70); Platelet Count 358 K/mm3 (150-450); RBC Distribution Width CV 16.8 % (11.6-14.6); RBC Distribution Width SD 54.2 fl (35.1-43.9); White Blood Count 8.2 K/mm3 (4.4-11.0)
--- NOTE | 2021-11-23 13:47 | EX.ED.SAOD ---
HPI History of Present Illness Chief Complaint: Substance Abuse Narrative Narrative: 66-year-old male with history of opiate abuse presenting for detox. He states he last used at 5 AM. He states he is using fentanyl. He states he uses 20 a day. He snorts this and does not inject it. He states he is getting cramps in his stomach is queasy. He states he was recently hospitalized for the same. He states he made it a couple of weeks before he started using again. He denies EtOH abuse. He denies other drugs. [facility] Medical History Alcohol use disorder Basal cell carcinoma (BCC) Chronic back pain Depression Dysthymia Emphysema lung Generalized anxiety disorder GERD (gastroesophageal reflux disease) Hemorrhoid Iron deficiency anemia Major depressive disorder, recurrent severe without psychotic features Osteoarthritis PAD (peripheral artery disease) Polysubstance abuse Smoker Substance abuse Home Medications albuterol sulfate 90 mcg/actuation aerosol inhaler 2 puff inhalation Q4H PRN PRN Shortness Of Breath Or Wheezing 11/23/21 [History Last Taken 11/22/21] bupropion HCl 300 mg 24 hr tablet, extended release 300 mg PO DAILY ANXIETY 11/23/21 [History Last Taken 11/23/21] food supplemt, lactose-reduced (Ensure oral liquid) 240 ml PO DAILY SUPPLEMENT 11/23/21 [History Last Taken 11/22/21] ibuprofen 600 mg tablet (IBU) 600 mg PO Q8H PRN Pain 11/23/21 [History Last Taken 2 Days Ago ~11/21/21] omeprazole 20 mg tablet,delayed release 20 mg PO DAILY GERD 11/23/21 [History Last Taken Unknown] tiotropium 2.5 mcg-olodaterol 2.5 mcg/actuation mist for inhalation (Stiolto Respimat) 2 puff inhalation DAILY 11/23/21 [History Last Taken 11/23/21] Allergy/AdvReac Type Severity Reaction Status Date / Time buspirone [From BuSpar] Allergy Mild shaking, Verified 11/23/21 11:56 restless legs sucralfate [From Carafate] Allergy Other Verified 11/23/21 11:56 venom-honey bee Allergy Anaphylaxis Verified 11/23/21 11:56 [bee venom (honey bee)] Family History Mother Diabetes Heart disease Hypertension Thyroid disorder Ulcer Sister Asthma Heart disease Hypertension Cancer multiple myeloma Surgical History History of cataract extraction History of cholecystectomy (~2002) History of colonoscopy (~2018) Hx of endarterectomy Hx of local excision of skin lesion S/P peripheral artery angioplasty with stent placement Social History household members: friend(s) Smoking Status: Current every day smoker tobacco type: cigarettes Tobacco: How many years used: 50 Electronic Cigarette Use: not used second hand exposure: No quit status: considering quitting counseling given: provider counseling alcohol intake: former details: Sober since 2015. substance use type: other details: Fentanyl, snorted, does have prior IVDA history. ROS ROS ED Constitutional Constitutional ED: Denies chills or fever(s) Eyes Eyes: Denies diplopia ENT ENT ED: Denies rhinorrhea or sore throat Cardiovascular Cardiovascular: Denies chest pain or palpitations Respiratory/Chest Respiratory/Chest: Denies cough or dyspnea Gastrointestinal Gastrointestinal: Reports nausea; Denies abdominal pain Genitourinary Genitourinary ED: Denies dysuria Musculoskeletal Musculoskeletal: Reports other Details: Muscle cramping Integumentary Denies abscess Neurologic Neurologic: Denies headache(s) or paresthesias Psychiatric Psychiatric: Denies suicidal ideation or suicidal thoughts EXAM Physical Exam Const Vital Signs: 11/23/21 11:57 Temperature 98.2 F Temperature Source Temporal Pulse Rate 79 Respiratory Rate 14 Blood Pressure 170/91 H Blood Pressure Mean 117 Pulse Ox 98 Oxygen Delivery Method Room Air Positive well nourished General Appearance ED: NAD; Negative for pallor HEENT Reports moist mucous membranes atraumatic Eyes PERRL and EOMs intact bilaterally Neck no lymphadenopathy Resp normal respiratory effort Auscultation: Negative for rales, rhonchi or wheezes Cardio regular rate and regular rhythm GI soft to palpation Back/Spine no CVA tenderness Neuro oriented x3 and CN's II-XII intact bilaterally Sensorium / Orientation: alert Motor Exam: strength 5/5 throughout Psych mental status grossly normal and thought process normal Mood & Affect: anxious and tearful Skin General Skin Exam: Negative for jaundice or pallor MDM MDM MDM Narrative Medical decision making narrative: Patient presenting for opioid detox. He is experiencing some nausea and was given Zofran. Blood work was obtained and his CBC and BMP are normal. EtOH negative. Urine drug screen positive for MDMA but this could be cross reaction from bupropion. Also positive for amphetamines and the patient does not appear to be prescribed any of these. Patient also has positive talk screen for cocaine and cannabinoids. Patient was discussed with hospitalist for admission. Impression: 1. Cocaine abuse 2. Fentanyl abuse 3. Positive MDMA on urine drug screen 4. Cannabinoid abuse 5. Presentation for fentanyl Lab Data Attestation: I reviewed the patient's lab results. Labs: Laboratory Results - last 24 hr 11/23/21 11/23/21 11/23/21 13:25 13:25 13:25 WBC 8.2 RBC 4.00 L Hgb 11.2 L Hct 35.0 L MCV 87.5 MCH 28.0 MCHC 32.0 RDW Std Deviation 54.2 H RDW Coeff of Liliane 16.8 H Plt Count 358 MPV 10.4 Immature Gran % (Auto) 0.200 Neut % (Auto) 59.5 Lymph % (Auto) 31.7 Collin % (Auto) 6.6 Eos % (Auto) 1.6 Baso % (Auto) 0.4 Absolute Neuts (auto) 4.9 Absolute Lymphs (auto) 2.58 Nucleated RBC % 0 Sodium 138 Potassium 3.8 Chloride 108 H Carbon Dioxide 24.0 Anion Gap 6 BUN 16 Creatinine 1.05 Estim Creat Clear Calc 52.76 Est GFR (MDRD) Af Amer 90 Est GFR (MDRD) Non-Af 75 BUN/Creatinine Ratio 15.2 Glucose 98 Calcium 9.2 Urine Opiates Screen Urine Methadone Screen Ur Barbiturates Screen Ur Phencyclidine Scrn Ur Amphetamines Screen MDMA (Ecstasy) Screen U Benzodiazepines Scrn Urine Cocaine Screen U Cannabinoids Screen Ur Drug Screen Comment Ethyl Alcohol 5.0 11/23/21 14:06 WBC RBC Hgb Hct MCV MCH MCHC RDW Std Deviation RDW Coeff of Liliane Plt Count MPV Immature Gran % (Auto) Neut % (Auto) Lymph % (Auto) Collin % (Auto) Eos % (Auto) Baso % (Auto) Absolute Neuts (auto) Absolute Lymphs (auto) Nucleated RBC % Sodium Potassium Chloride Carbon Dioxide Anion Gap BUN Creatinine Estim Creat Clear Calc Est GFR (MDRD) Af Amer Est GFR (MDRD) Non-Af BUN/Creatinine Ratio Glucose Calcium Urine Opiates Screen NEGATIVE Urine Methadone Screen NEGATIVE Ur Barbiturates Screen NEGATIVE Ur Phencyclidine Scrn NEGATIVE Ur Amphetamines Screen POSITIVE H MDMA (Ecstasy) Screen POSITIVE H U Benzodiazepines Scrn NEGATIVE Urine Cocaine Screen POSITIVE H U Cannabinoids Screen POSITIVE H Ur Drug Screen Comment Ethyl Alcohol Discharge Plan Triage Chief Complaint: Substance Abuse ED Provider: Ren Greene Dx/Rx/DC Orders Prescriptions: No Action Stiolto Respimat 2.5-2.5 mcg/actuation mist 2 puff INHALATION DAILY ibuprofen [IBU] 600 mg tablet 600 mg PO Q8H PRN (Reason: Pain) albuterol sulfate 90 mcg/actuation HFA aerosol inhaler 2 puff INHALATION Q4H PRN PRN (Reason: Shortness Of Breath Or Wheezing) Label Comments: INHALE 2 PUFFS BY MOUTH EVERY 4 HOURS NEEDED FOR SHORTNESS OF BREATH OR WHEEZING Ensure Liquid 240 ml PO DAILY bupropion HCl 300 mg tablet extended release 24 hr 300 mg PO DAILY omeprazole 20 mg tablet,delayed release (DR/EC) 20 mg PO DAILY Primary Care Provider: Naif Rojas Referrals: Naif Rojas MD [Primary Care Provider] -
[2021-11-23 13:53] LABS: Anion Gap 6 (5-15); BUN 16 mg/dL (7-18); BUN/Creat Ratio 15.2 RATIO (10-20); Calcium,Total 9.2 mg/dL (8.5-10.1); Chloride 108 mmol/L (98-107); Creatinine, Serum 1.05 mg/dL (0.70-1.30); EST Glomerular Filtration Rate 75 mL/min (>60); Est Glom Filt Rate - Afr Amer 90 mL/min (>60); Estimated Creatinine Clearance 52.76 ml/min; Glucose 98 mg/dL (74-106); Potassium 3.8 mmol/L (3.5-5.1); Sodium Level 138 mmol/L (136-145)
[2021-11-23 14:00] VITALS: RESP 18
[2021-11-23] MEDS: Ondansetron 4 MG/2 ML Vial IV (14:11)
[2021-11-23 14:28] LABS: Amphetamine Urine VISTA POSITIVE (<1000 ng/mL); Barbiturate Urine VISTA NEGATIVE (< 200 ng/mL); Benzodiazepine Urine VISTA NEGATIVE (< 200 ng/mL); Cocaine Urine VISTA POSITIVE (< 300 ng/mL); Ecstacy Urine VISTA POSITIVE (< 500 ng/mL); Methadone Urine VISTA NEGATIVE (< 300 ng/mL); PCP Urine VISTA NEGATIVE (< 25 ng/mL); THC Urine VISTA POSITIVE (< 50 ng/mL); Vista UDS pH Range 7
[2021-11-23 14:37] VITALS: BP 166/84; PULSE 92; RESP 24; TEMP 36.9; O2SAT 95
--- NOTE | 2021-11-23 14:57 | HP.PCM.HOS_ITS ---
HPI - General General Date of Admission: 11/23/21 Chief Complaint: Opiate withdrawal HPI Narrative LEIGH LOCO, is a 66 M who presents presents seeking treatment for acute opiate withdrawal. Patient's last use was around 5 AM. Patient is snorting fentanyl. Additionally, he is using marijuana and occasionally using methamphetamines. Patient was just [facility] from the [facility] on the . Follow-up appointment on which made and patient was remaining sober for several days afterwards and then started using fentanyl again which he has been using consistently since until today. Since his last use, patient has been having restless legs, abdominal cramps, rhinorrhea and yawning. Is all consistent with his prior history of opiate withdrawal. 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 Patient had been seen at [facility] and they directed him back to the hospital to get treatment and then to either enroll in an IOP or a residential program in his discharge. [facility] Medical History (Updated 11/23/21 @ 15:[address] Aguilar Funez, ) Alcohol use disorder Basal cell carcinoma (BCC) Chronic back pain Depression Dysthymia Emphysema lung Generalized anxiety disorder GERD (gastroesophageal reflux disease) Hemorrhoid Hepatitis C Iron deficiency anemia Major depressive disorder, recurrent severe without psychotic features Osteoarthritis PAD (peripheral artery disease) Polysubstance abuse Smoker Substance abuse Home Medications albuterol sulfate 90 mcg/actuation aerosol inhaler 2 puff inhalation Q4H PRN PRN Shortness Of Breath Or Wheezing 11/23/21 [History Last Taken 11/22/21] bupropion HCl 300 mg 24 hr tablet, extended release 300 mg PO DAILY ANXIETY 11/23/21 [History Last Taken 11/23/21] food supplemt, lactose-reduced (Ensure oral liquid) 240 ml PO DAILY SUPPLEMENT 11/23/21 [History Last Taken 11/22/21] ibuprofen 600 mg tablet (IBU) 600 mg PO Q8H PRN Pain 11/23/21 [History Last Taken 2 Days Ago ~11/21/21] omeprazole 20 mg tablet,delayed release 20 mg PO DAILY GERD 11/23/21 [History Last Taken Unknown] tiotropium 2.5 mcg-olodaterol 2.5 mcg/actuation mist for inhalation (Stiolto Respimat) 2 puff inhalation DAILY 11/23/21 [History Last Taken 11/23/21] Allergy/AdvReac Type Severity Reaction Status Date / Time buspirone [From BuSpar] Allergy Mild shaking, Verified 11/23/21 11:56 restless legs sucralfate [From Carafate] Allergy Other Verified 11/23/21 11:56 venom-honey bee Allergy Anaphylaxis Verified 11/23/21 11:56 [bee venom (honey bee)] Family History Mother Diabetes Heart disease Hypertension Thyroid disorder Ulcer Sister Asthma Heart disease Hypertension Cancer multiple myeloma Surgical History History of cataract extraction History of cholecystectomy (~2002) History of colonoscopy (~2018) Hx of endarterectomy Hx of local excision of skin lesion S/P peripheral artery angioplasty with stent placement Social History household members: friend(s) Smoking Status: Current every day smoker tobacco type: cigarettes Tobacco: How many years used: 50 Electronic Cigarette Use: not used second hand exposure: No quit status: considering quitting counseling given: provider counseling alcohol intake: former details: Sober since 2016. substance use type: other details: Fentanyl, snorted, does have prior IVDA history. ROS ROS Narrative All review of systems were negative except as mentioned above in the history of present illness and the other review of systems. Vital Signs Vital Signs Vital Signs: 11/23/21 11:57 11/23/21 14:00 11/23/21 14:37 Temperature 36.8 C 36.9 C Temperature Source Temporal Temporal Pulse Rate 79 92 Respiratory Rate 14 18 24 H Blood Pressure 170/91 H 166/84 H Blood Pressure Mean 117 111 Pulse Ox 98 95 Oxygen Delivery Method Room Air Room Air Weight Weight: 55.4 kg Body Mass Index (BMI) 17.5 Physical Exam Const alert Constitutional Narrative: Uncomfortable. Writhing in bed and grasping his legs. Cachectic. HEENT normocephalic Resp normal respiratory effort, no retractions, no use of accessory muscles and clear to auscultation bilaterally Cardio regular rate, regular rhythm, S1 normal heart sound and S2 normal heart sound GI normal to inspection, nondistended, normoactive bowel sounds, soft to palpation and non-tender Extremity normal to inspection Results Lab / Micro Data Result Diagrams: 11/23/21 13:25 11/23/21 13:25 Labs: Laboratory Results - last 24 hr 11/23/21 13:25: WBC 8.2, RBC 4.00 L, Hgb 11.2 L, Hct 35.0 L, MCV 87.5, MCH 28.0, MCHC 32.0, RDW Std Deviation 54.2 H, RDW Coeff of Liliane 16.8 H, Plt Count 358, MPV 10.4, Immature Gran % (Auto) 0.200, Neut % (Auto) 59.5, Lymph % (Auto) 31.7, [place] % (Auto) 6.6, Eos % (Auto) 1.6, Baso % (Auto) 0.4, Absolute Neuts (auto) 4.9, Absolute Lymphs (auto) 2.58, Nucleated RBC % 0 11/23/21 13:25: Sodium 138, Potassium 3.8, Chloride 108 H, Carbon Dioxide 24.0, Anion Gap 6, BUN 16, Creatinine 1.05, Estim Creat Clear Calc 52.76, Est GFR (MDRD) Af Amer 90, Est GFR (MDRD) Non-Af 75, BUN/Creatinine Ratio 15.2, Glucose 98, Calcium 9.2 11/23/21 13:25: Ethyl Alcohol 5.0 11/23/21 14:06: Urine Opiates Screen NEGATIVE, Urine Methadone Screen NEGATIVE, Ur Barbiturates Screen NEGATIVE, Ur Phencyclidine Scrn NEGATIVE, Ur Amphetamines Screen POSITIVE H, MDMA (Ecstasy) Screen POSITIVE H, U Benzodiazepines Scrn NEGATIVE, Urine Cocaine Screen POSITIVE H, U Cannabinoids Screen POSITIVE H, Ur Drug Screen Comment Assessment & Plan Assessment/Plan (1) Opiate withdrawal: PLAN: Patient is clearly going through acute opiate withdrawal despite resuming opiates about a week or so ago. Plan is to initiate buprenorphine taper as well as other adjunctive medications to help with somatic plaints with his withdrawal. Addiction medicine to evaluate and determine if patient will be going to an IOP or residential program upon discharge. Patient was told at [facility] that would be this coming Saturday. I am not sure how accurate that is as the patient would be done with his treatment . May be reasonable to keep the patient here another day if he could not go anywhere until June 27 but am not sure about 18. Hopefully they will be able to facilitate something sooner than the . 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 He did state that he would kill himself if he uses again. He clarify that as if he would overdose not as suicidal ideation. (2) Polysubstance abuse: PLAN: Complicates on long-term recovery and abstinence. Advised patient that he needs to quit all illicit substances to help maintain sobriety. (3) Nicotine dependence, cigarettes, uncomplicated: PLAN: Nicotine patch PLAN: Plan Chronic conditions * Protein calorie malnutrition: Continue with Ensure * COPD: Not in exacerbation. Continue with bronchodilators * Anxiety: Continue bupropion * PAD: Stable VTE prophylaxis: Not indicated. Low risk. Encourage ambulation. Charges/Coding Visit Charges Inpatient E&M: 35270 Init Hosp L2
[2021-11-23 15:45] VITALS: BP 172/107; PULSE 84; RESP 18; TEMP 37.3; O2SAT 98
[2021-11-23 15:47] VITALS: BMI 16.3
[2021-11-23] MEDS: Methocarbamol 750 MG Tablet 1500 MG PO (15:57)
[2021-11-23] MEDS: Buprenorphine HCl 2 MG TAB.SUBL SL (16:18)
[2021-11-23] MEDS: cloNIDine HCl 0.1 MG Tablet PO (16:19)
[2021-11-23 18:57] VITALS: PULSE 83; RESP 18; O2SAT 99
[2021-11-23] MEDS: Ipratropium/Albuterol Sulfate 3 ML AMPUL.NEB INHALATION (18:57)
[2021-11-23 20:52] VITALS: BP 151/78; PULSE 76; RESP 18; TEMP 36.4; O2SAT 97
[2021-11-23] MEDS: Ibuprofen 600 MG Tablet PO (21:01)
[2021-11-23] MEDS: Gabapentin 300 MG Capsule PO (21:02)
[2021-11-23] MEDS: Ensure Plus High Protein 120 ML LIQUID PO (21:25)
[2021-11-24] VITALS (10 sets, daily range): BP systolic 112–158; BP diastolic 71–90; PULSE 65–86; RESP 16–18; TEMP 36.4–37.1; O2SAT 93–98
[2021-11-24] MEDS: Methocarbamol 750 MG Tablet 1500 MG PO ×3 (00:01→16:39)
[2021-11-24] MEDS: Buprenorphine HCl 2 MG TAB.SUBL SL ×3 (00:01→16:39)
[2021-11-24] MEDS: cloNIDine HCl 0.1 MG Tablet PO ×3 (00:41→16:39)
[2021-11-24] MEDS: hydrOXYzine PAM 25 MG Capsule 50 MG PO ×2 (00:41→13:44)
[2021-11-24] MEDS: Acetaminophen 500 MG Tablet PO (00:42)
[2021-11-24] MEDS: Ipratropium/Albuterol Sulfate 3 ML AMPUL.NEB INHALATION ×3 (06:43→19:32)
[2021-11-24] MEDS: Gabapentin 300 MG Capsule PO ×2 (08:29→16:39)
[2021-11-24] MEDS: Ensure Plus High Protein 120 ML LIQUID PO ×4 (08:32→20:41)
[2021-11-24] MEDS: buPROPion (XL) 300 MG TABLET.XL PO (08:34)
[2021-11-24] MEDS: Pantoprazole Sodium 20 MG Tablet PO (08:34)
--- NOTE | 2021-11-24 11:18 | PN.HOSP_ITS ---
Subjective Subjective No issues overnight. Cina score of 5. Objective Data Objective Data Vital Signs: Vital Signs Temp Pulse Resp BP Pulse Ox O2 Del Method 97.7 F L 70 18 158/83 H 97 Room Air 11/24/21 08:26 11/24/21 08:26 11/24/21 08:26 11/24/21 08:26 11/24/21 08:26 11/24/21 08:26 Oxygen Delivery Method Room Air Weight: 113 lb 12.136 oz Body Mass Index (BMI) 16.3 Intake & Output: Intake and Output for Last 24 Hours 11/23/21 11/24/21 11/25/21 03:59 03:59 03:59 Intake Total 500 / 500 500 / 500 Balance 500 / 500 500 / 500 Medical Nutrition Assessment Dietitian: Malnutrition Criteria Met Start: 11/23/21 16:28 Freq: Status: Active Protocol: Document 11/23/21 16:28 RMA (Rec: 11/23/21 16:28 RMA [id number]) Nutrition Malnutrition Evidence of Malnutrition Exists Yes Malnutrition (severe): Social/Behavioral/ Environmental Evidenced By Suboptimal Energy Intake ( Severe),Weight Loss (Severe), Physical Changes (Severe) Clinical Problem Chronic Disease or Condition Related Malnutrition Etiology Severe protein-calorie malnutrition in the context of social circumstance related to inadequate oral intake and polysubstance abuse Signs/Symptoms as evidenced by ~12-13% wt loss x 6 months, ~4% wt loss x past 2 weeks, BMI 16.3, PO/ nona inadequate and meeting less than 50% estimated nutrition needs; +NFPA with obvious visible signs of muscle/fat wasting in the face , clavicle, arms and legs Status Active Problem Recommendation Dietitian Recommendations/Changes Continue regular diet with 3 snack per day as ordered. Will d/c 240ml ensure clear w/ medpass and add 120 ml ensure plus high protein 4 times per day with medpass. Will add 240 ml ensure clear w / breakfast daily. Will add magic cup BID w/ lunch and dinner daily. Adjust ONS as needed to optimize oral intake and prevent further weight loss. Lab / Micro Data Result Diagrams: 11/23/21 13:25 11/23/21 13:25 Labs: Laboratory Results - last 24 hr 11/23/21 13:25: WBC 8.2, RBC 4.00 L, Hgb 11.2 L, Hct 35.0 L, MCV 87.5, MCH 28.0, MCHC 32.0, RDW Std Deviation 54.2 H, RDW Coeff of Liliane 16.8 H, Plt Count 358, MPV 10.4, Immature Gran % (Auto) 0.200, Neut % (Auto) 59.5, Lymph % (Auto) 31.7, [place] % (Auto) 6.6, Eos % (Auto) 1.6, Baso % (Auto) 0.4, Absolute Neuts (auto) 4.9, Absolute Lymphs (auto) 2.58, Nucleated RBC % 0 11/23/21 13:25: Sodium 138, Potassium 3.8, Chloride 108 H, Carbon Dioxide 24.0, Anion Gap 6, BUN 16, Creatinine 1.05, Estim Creat Clear Calc 52.76, Est GFR (MDRD) Af Amer 90, Est GFR (MDRD) Non-Af 75, BUN/Creatinine Ratio 15.2, Glucose 98, Calcium 9.2 11/23/21 13:25: Ethyl Alcohol 5.0 11/23/21 14:06: Urine Opiates Screen NEGATIVE, Urine Methadone Screen NEGATIVE, Ur Barbiturates Screen NEGATIVE, Ur Phencyclidine Scrn NEGATIVE, Ur Amphetamines Screen POSITIVE H, MDMA (Ecstasy) Screen POSITIVE H, U Benzodiazepines Scrn NEGATIVE, Urine Cocaine Screen POSITIVE H, U Cannabinoids Screen POSITIVE H, Ur Drug Screen Comment Physical Exam Narrative General: Alert, Oriented x3, Cooperative, No apparent distress HEENT: Atraumatic, PERRLA, EOMI, Normocephalic Oral: Moist Mucosa Neck: Supple, No JVD Lungs: Clear to auscultation, Normal air movement, No rhonchi, No wheeze, No rales Cardiovascular: Regular rate, Regular Rhythm, Normal S1, Normal S2, No murmurs Abdomen: Soft, Non Tender, Non-Distended, No Hepato-splenomegaly Extremities: No edema, Capillary Refill Less than 3 Seconds Skin: No rashes, No breakdown Musculoskeletal: No Tenderness to Palpation of Joints or Extremities Neurological: Cranial nerves II-XII grossly intact, Motor Exam 5/5 strength throughout, Sensory exam intact to light touch and pain Psych/Mental Status: Flat affect, Appropriate Assessment & Plan Assessment/Plan (1) Opiate withdrawal: PLAN: Continue with the opiate withdrawal protocol Continue with 180 outpatient management will discuss with 180 whether or not he is going to inpatient treatment versus intensive outpatient on discharge (2) Polysubstance abuse: PLAN: Complicates on long-term recovery and abstinence. Advised patient that he needs to quit all illicit substances to help maintain sobriety. (3) Nicotine dependence, cigarettes, uncomplicated: PLAN: Nicotine patch PLAN: Plan Chronic conditions * Protein calorie malnutrition: Continue with Ensure * COPD: Not in exacerbation. Continue with bronchodilators * Anxiety: Continue bupropion * PAD: Stable DVT: Ambulation Charges/Coding Visit Charges Inpatient E&M: 27031 Subs Hosp L2
[2021-11-24] MEDS: 0.9% Saline Lock 10 ML Syringe IV (13:37)
--- NOTE | 2021-11-24 16:24 | ADDICTION ---
Addendum entered by Kamla Wills 11/27/21 10:21: Patient has been approved for [facility], pending medical clearance. The plan is to transport to [facility] Saturday. Original Note: Clinician met with Pt to complete ASAM, AUDIT, DUDIT, MSE, and fill out appropriate ROIs. Pt is interested in residential treatment. Clinician is working on finding residential bed placement for client. It would be in client's best interest if he can be held until Saturday11/28/21 to find a bed. If no bed is found, he has f/u MAT appt with Dr. Plascencia on 11/28/21 at 1PM. D/C plan will be completed once formal plan is decided upon.
[2021-11-25] VITALS (9 sets, daily range): BP systolic 119–138; BP diastolic 69–85; PULSE 71–93; RESP 16–18; TEMP 36.5–36.8; O2SAT 91–98
[2021-11-25] MEDS: Buprenorphine HCl 2 MG TAB.SUBL SL ×3 (00:09→15:41)
[2021-11-25] MEDS: Methocarbamol 750 MG Tablet 1500 MG PO ×3 (00:10→18:05)
[2021-11-25] MEDS: hydrOXYzine PAM 25 MG Capsule 50 MG PO ×3 (00:10→18:05)
[2021-11-25] MEDS: cloNIDine HCl 0.1 MG Tablet PO ×2 (03:15→13:42)
[2021-11-25] MEDS: Ipratropium/Albuterol Sulfate 3 ML AMPUL.NEB INHALATION ×3 (07:12→19:22)
[2021-11-25] MEDS: Ensure Plus High Protein 120 ML LIQUID PO ×4 (07:51→20:09)
[2021-11-25] MEDS: buPROPion (XL) 300 MG TABLET.XL PO (07:52)
[2021-11-25] MEDS: Pantoprazole Sodium 20 MG Tablet PO (07:52)
--- NOTE | 2021-11-25 10:18 | PN.HOSP_ITS ---
Subjective Subjective Feels a little better today, no issues overnight. Cina score of 2 Objective Data Objective Data Vital Signs: Vital Signs Temp Pulse Resp BP Pulse Ox O2 Del Method 98.1 F 80 18 124/73 H 96 Room Air 11/25/21 09:25 11/25/21 09:25 11/25/21 09:25 11/25/21 09:25 11/25/21 09:25 11/25/21 09:25 Oxygen Delivery Method Room Air Weight: 113 lb 12.136 oz Body Mass Index (BMI) 16.3 Intake & Output: Intake and Output for Last 24 Hours 11/24/21 11/25/21 11/26/21 03:59 03:59 03:59 Intake Total 500 / 500 1000 / 1000 300 / 300 Balance 500 / 500 1000 / 1000 300 / 300 Medical Nutrition Assessment Dietitian: Malnutrition Criteria Met Start: 11/23/21 16:28 Freq: Status: Active Protocol: Document 11/23/21 16:28 RMA (Rec: 11/23/21 16:28 RMA [id number]) Nutrition Malnutrition Evidence of Malnutrition Exists Yes Malnutrition (severe): Social/Behavioral/ Environmental Evidenced By Suboptimal Energy Intake ( Severe),Weight Loss (Severe), Physical Changes (Severe) Clinical Problem Chronic Disease or Condition Related Malnutrition Etiology Severe protein-calorie malnutrition in the context of social circumstance related to inadequate oral intake and polysubstance abuse Signs/Symptoms as evidenced by ~12-13% wt loss x 6 months, ~4% wt loss x past 2 weeks, BMI 16.3, PO/ nona inadequate and meeting less than 50% estimated nutrition needs; +NFPA with obvious visible signs of muscle/fat wasting in the face , clavicle, arms and legs Status Active Problem Recommendation Dietitian Recommendations/Changes Continue regular diet with 3 snack per day as ordered. Will d/c 240ml ensure clear w/ medpass and add 120 ml ensure plus high protein 4 times per day with medpass. Will add 240 ml ensure clear w / breakfast daily. Will add magic cup BID w/ lunch and dinner daily. Adjust ONS as needed to optimize oral intake and prevent further weight loss. Lab / Micro Data Result Diagrams: 11/23/21 13:25 11/23/21 13:25 Physical Exam Narrative General: Alert, Oriented x3, Cooperative, No apparent distress HEENT: Atraumatic, PERRLA, EOMI, Normocephalic Oral: Moist Mucosa Neck: Supple, No JVD Lungs: Clear to auscultation, Normal air movement, No rhonchi, No wheeze, No rales Cardiovascular: Regular rate, Regular Rhythm, Normal S1, Normal S2, No murmurs Abdomen: Soft, Non Tender, Non-Distended, No Hepato-splenomegaly Extremities: No edema, Capillary Refill Less than 3 Seconds Skin: No rashes, No breakdown Musculoskeletal: No Tenderness to Palpation of Joints or Extremities Neurological: Cranial nerves II-XII grossly intact, Motor Exam 5/5 strength throughout, Sensory exam intact to light touch and pain Psych/Mental Status: Flat affect, Appropriate Assessment & Plan Assessment/Plan (1) Opiate withdrawal: PLAN: Continue with the opiate withdrawal protocol Continue with 180 outpatient management will discuss with 180 whether or not he is going to inpatient treatment versus intensive outpatient on discharge, plan will be to keep him until Saturday in order to find an inpatient bed if possible (2) Polysubstance abuse: PLAN: Complicates on long-term recovery and abstinence. Advised patient that he needs to quit all illicit substances to help maintain sobriety. (3) Nicotine dependence, cigarettes, uncomplicated: PLAN: Nicotine patch PLAN: Plan Chronic conditions * Protein calorie malnutrition: Continue with Ensure * COPD: Not in exacerbation. Continue with bronchodilators * Anxiety: Continue bupropion * PAD: Stable DVT: Ambulation Charges/Coding Visit Charges Inpatient E&M: 46096 Subs Hosp L2
--- NOTE | 2021-11-25 15:38 | CM.ED ---
SW was advised by the Treatment Navigator that patient will be admitted to residential treatment on Saturday. Vanita SHAW
[2021-11-26] VITALS (7 sets, daily range): BP systolic 123–141; BP diastolic 76–89; PULSE 74–94; RESP 16–18; TEMP 36.6–36.7; O2SAT 93–99
[2021-11-26] MEDS: hydrOXYzine PAM 25 MG Capsule 50 MG PO ×3 (00:20→14:32)
[2021-11-26] MEDS: Buprenorphine HCl 2 MG TAB.SUBL SL (03:25)
[2021-11-26] MEDS: Ipratropium/Albuterol Sulfate 3 ML AMPUL.NEB INHALATION ×3 (07:21→19:34)
[2021-11-26] MEDS: buPROPion (XL) 300 MG TABLET.XL PO (08:17)
[2021-11-26] MEDS: cloNIDine HCl 0.1 MG Tablet PO ×2 (08:17→21:00)
[2021-11-26] MEDS: Methocarbamol 750 MG Tablet 1500 MG PO ×3 (08:17→21:00)
[2021-11-26] MEDS: Pantoprazole Sodium 20 MG Tablet PO (08:18)
[2021-11-26] MEDS: Ensure Plus High Protein 120 ML LIQUID PO ×4 (08:18→20:53)
--- NOTE | 2021-11-26 09:44 | PN.HOSP_ITS ---
Subjective Subjective Doing well, no issues overnight. Cina score 3. Objective Data Objective Data Vital Signs: Vital Signs Temp Pulse Resp BP Pulse Ox O2 Del Method 98 F 79 18 123/89 H 96 Room Air 11/26/21 08:20 11/26/21 08:20 11/26/21 08:20 11/26/21 08:20 11/26/21 08:20 11/26/21 08:20 Oxygen Delivery Method Room Air Weight: 113 lb 12.136 oz Body Mass Index (BMI) 16.3 Intake & Output: Intake and Output for Last 24 Hours 11/25/21 11/26/21 11/27/21 03:59 03:59 03:59 Intake Total 1000 / 1000 1050 / 1050 200 / 200 Balance 1000 / 1000 1050 / 1050 200 / 200 Medical Nutrition Assessment Dietitian: Malnutrition Criteria Met Start: 11/23/21 16:28 Freq: Status: Active Protocol: Document 11/23/21 16:28 RMA (Rec: 11/23/21 16:28 RMA [id number]) Nutrition Malnutrition Evidence of Malnutrition Exists Yes Malnutrition (severe): Social/Behavioral/ Environmental Evidenced By Suboptimal Energy Intake ( Severe),Weight Loss (Severe), Physical Changes (Severe) Clinical Problem Chronic Disease or Condition Related Malnutrition Etiology Severe protein-calorie malnutrition in the context of social circumstance related to inadequate oral intake and polysubstance abuse Signs/Symptoms as evidenced by ~12-13% wt loss x 6 months, ~4% wt loss x past 2 weeks, BMI 16.3, PO/ nona inadequate and meeting less than 50% estimated nutrition needs; +NFPA with obvious visible signs of muscle/fat wasting in the face , clavicle, arms and legs Status Active Problem Recommendation Dietitian Recommendations/Changes Continue regular diet with 3 snack per day as ordered. Will d/c 240ml ensure clear w/ medpass and add 120 ml ensure plus high protein 4 times per day with medpass. Will add 240 ml ensure clear w / breakfast daily. Will add magic cup BID w/ lunch and dinner daily. Adjust ONS as needed to optimize oral intake and prevent further weight loss. Lab / Micro Data Result Diagrams: 11/23/21 13:25 11/23/21 13:25 Physical Exam Narrative General: Alert, Oriented x3, Cooperative, No apparent distress HEENT: Atraumatic, PERRLA, EOMI, Normocephalic Oral: Moist Mucosa Neck: Supple, No JVD Lungs: Clear to auscultation, Normal air movement, No rhonchi, No wheeze, No rales Cardiovascular: Regular rate, Regular Rhythm, Normal S1, Normal S2, No murmurs Abdomen: Soft, Non Tender, Non-Distended, No Hepato-splenomegaly Extremities: No edema, Capillary Refill Less than 3 Seconds Skin: No rashes, No breakdown Musculoskeletal: No Tenderness to Palpation of Joints or Extremities Neurological: Cranial nerves II-XII grossly intact, Motor Exam 5/5 strength throughout, Sensory exam intact to light touch and pain Psych/Mental Status: Flat affect, Appropriate Assessment & Plan Assessment/Plan (1) Opiate withdrawal: PLAN: Continue with the opiate withdrawal protocol, he completes his taper today Continue with 180 outpatient management will discuss with 180 whether or not he is going to inpatient treatment versus intensive outpatient on discharge, plan will be to keep him until Saturday in order to find an inpatient bed if possible (2) Polysubstance abuse: PLAN: Complicates on long-term recovery and abstinence. Advised patient that he needs to quit all illicit substances to help maintain sobriety. (3) Nicotine dependence, cigarettes, uncomplicated: PLAN: Nicotine patch PLAN: Plan Chronic conditions * Protein calorie malnutrition: Continue with Ensure * COPD: Not in exacerbation. Continue with bronchodilators * Anxiety: Continue bupropion * PAD: Stable DVT: Ambulation Charges/Coding Visit Charges Inpatient E&M: 13275 Subs Hosp L2
[2021-11-26] MEDS: Acetaminophen 500 MG Tablet PO (12:02)
[2021-11-27] VITALS (8 sets, daily range): BP systolic 133–148; BP diastolic 78–86; PULSE 87–98; RESP 14–21; TEMP 36.3–36.9; O2SAT 93–99
[2021-11-27] MEDS: Gabapentin 300 MG Capsule PO (00:15)
[2021-11-27] MEDS: hydrOXYzine PAM 25 MG Capsule 50 MG PO (00:17)
[2021-11-27] MEDS: Methocarbamol 750 MG Tablet 1500 MG PO ×2 (03:37→20:10)
[2021-11-27] MEDS: Ipratropium/Albuterol Sulfate 3 ML AMPUL.NEB INHALATION ×3 (07:07→19:25)
[2021-11-27] MEDS: Ensure Plus High Protein 120 ML LIQUID PO ×4 (08:25→20:11)
[2021-11-27] MEDS: Pantoprazole Sodium 20 MG Tablet PO (08:25)
[2021-11-27] MEDS: buPROPion (XL) 300 MG TABLET.XL PO (08:25)
--- NOTE | 2021-11-27 10:19 | PN.HOSP_ITS ---
Subjective Subjective Patient seen and examined. He had no active complaints and had an uneventful night. Review of systems is otherwise negative. He is awaiting discharge tomorrow to a residential rehab facility. Objective Data Objective Data Vital Signs: Vital Signs Temp Pulse Resp BP Pulse Ox O2 Del Method 97.8 F 89 18 135/79 H 93 Room Air 11/27/21 08:23 11/27/21 08:23 11/27/21 08:23 11/27/21 08:23 11/27/21 08:34 11/27/21 08:34 Oxygen Delivery Method Room Air Weight: 113 lb 12.136 oz Body Mass Index (BMI) 16.3 Intake & Output: Intake and Output for Last 24 Hours 11/25/21 11/26/21 11/27/21 23:59 23:59 23:59 Intake Total 1250 / 1550 2330 / 2330 Balance 1250 / 1550 2330 / 2330 Medical Nutrition Assessment Dietitian: Malnutrition Criteria Met Start: 11/23/21 16:28 Freq: Status: Active Protocol: Document 11/23/21 16:28 RMA (Rec: 11/23/21 16:28 RMA [id number]) Nutrition Malnutrition Evidence of Malnutrition Exists Yes Malnutrition (severe): Social/Behavioral/ Environmental Evidenced By Suboptimal Energy Intake ( Severe),Weight Loss (Severe), Physical Changes (Severe) Clinical Problem Chronic Disease or Condition Related Malnutrition Etiology Severe protein-calorie malnutrition in the context of social circumstance related to inadequate oral intake and polysubstance abuse Signs/Symptoms as evidenced by ~12-13% wt loss x 6 months, ~4% wt loss x past 2 weeks, BMI 16.3, PO/ nona inadequate and meeting less than 50% estimated nutrition needs; +NFPA with obvious visible signs of muscle/fat wasting in the face , clavicle, arms and legs Status Active Problem Recommendation Dietitian Recommendations/Changes Continue regular diet with 3 snack per day as ordered. Will d/c 240ml ensure clear w/ medpass and add 120 ml ensure plus high protein 4 times per day with medpass. Will add 240 ml ensure clear w / breakfast daily. Will add magic cup BID w/ lunch and dinner daily. Adjust ONS as needed to optimize oral intake and prevent further weight loss. Lab / Micro Data Result Diagrams: 11/23/21 13:25 10/13/22 13:25 Physical Exam Const alert and no apparent distress HEENT head/scalp atraumatic, moist oral mucous membranes and oropharynx normal Head and Scalp: normocephalic Eyes PERRL, EOMs intact bilaterally and conjunctivae normal Neck no lymphadenopathy, supple and no JVD Resp normal respiratory effort, no retractions, no use of accessory muscles and clear to auscultation bilaterally Cardio regular rate, regular rhythm, S1 normal heart sound, S2 normal heart sound and no murmurs GI normal to inspection, nondistended, normoactive bowel sounds, soft to palpation, non-tender and non-distended Extremity normal to inspection, full ROM and no clubbing, cyanosis or edema Neuro oriented x3, CN's II-XII intact bilaterally, moves all extremities and no focal motor deficits Sensorium / Orientation: awake Speech: speech normal Motor Exam: strength 5/5 throughout Psych affect normal Assessment & Plan Assessment/Plan (1) Opiate withdrawal: (2) Severe protein-calorie malnutrition: (3) Polysubstance abuse: PLAN: #Acute opioid withdrawal * on opioid withdrawal protocol with buprenorphine * stable * #Nicotine dependence: counseled to quit. Nicotine patch 21mg daily #Severe protein calorie malnutrition * BMI is only 16.3 #COPD: not in exacerbation. Breathing treatment with bronchodilators. DVT prophylaxis: low risk, encourage to ambulate Disposition: for discharge to inpatient residential rehab facility tomorrow Charges/Coding Visit Charges Inpatient E&M: 33520 Subs Hosp L2
[2021-11-27] MEDS: MELATONIN 10 MG TABLET 5 MG PO (21:21)
[2021-11-28 03:36] VITALS: BP 137/100; PULSE 84; RESP 18; TEMP 36.5; O2SAT 99
[2021-11-28] MEDS: Methocarbamol 750 MG Tablet 1500 MG PO (03:37)
[2021-11-28 07:27] VITALS: PULSE 87; RESP 16; O2SAT 98
[2021-11-28] MEDS: Ipratropium/Albuterol Sulfate 3 ML AMPUL.NEB INHALATION (07:27)
[2021-11-28] MEDS: buPROPion (XL) 300 MG TABLET.XL PO (08:00)
[2021-11-28] MEDS: Ensure Plus High Protein 120 ML LIQUID PO (08:00)
[2021-11-28] MEDS: Pantoprazole Sodium 20 MG Tablet PO (08:01)
[2021-11-28] MEDS: Acetaminophen 500 MG Tablet PO (08:01)
[2021-11-28 09:00] VITALS: BP 151/96; PULSE 82; RESP 16; TEMP 36.8; O2SAT 97
--- NOTE | 2021-11-28 09:03 | DS.PCM_ITS ---
Providers Date of Admission: 11/23/21 Date of Discharge: 11/28/21 Primary Care Physician: Dr. Naif Rojas MD Reason For Visit: FENTANYL DETOX Diagnosis Discharge Diagnosis (1) Opiate withdrawal: Status: Acute Code(s): F11.93 - Opioid use, unspecified with withdrawal (2) Severe protein-calorie malnutrition: Status: Acute Code(s): E43 - Unspecified severe protein-calorie malnutrition (3) Polysubstance abuse: Status: Acute Code(s): F19.10 - Other psychoactive substance abuse, uncomplicated Plan: #Acute opioid withdrawal * on opioid withdrawal protocol with buprenorphine * stable * #Nicotine dependence: counseled to quit. Nicotine patch 21mg daily #Severe protein calorie malnutrition * BMI is only 16.3 #COPD: not in exacerbation. Breathing treatment with bronchodilators. DVT prophylaxis: low risk, encourage to ambulate Disposition: for discharge to inpatient residential rehab facility tomorrow Medications at Discharge Home Medications albuterol sulfate 90 mcg/actuation aerosol inhaler 2 puff inhalation Q4H PRN PRN Shortness Of Breath Or Wheezing 11/23/21 bupropion HCl 300 mg 24 hr tablet, extended release 300 mg PO DAILY ANXIETY 11/23/21 food supplemt, lactose-reduced (Ensure oral liquid) 240 ml PO DAILY SUPPLEMENT 11/23/21 ibuprofen 600 mg tablet (IBU) 600 mg PO Q8H PRN Pain 11/23/21 omeprazole 20 mg tablet,delayed release 20 mg PO DAILY GERD 11/23/21 tiotropium 2.5 mcg-olodaterol 2.5 mcg/actuation mist for inhalation (Stiolto Respimat) 2 puff inhalation DAILY 11/23/21 Hospital Course Operations None Procedures None Summary of Care Provided Minutes Spent on Discharge: 45 Hospital Course: Patient is a 66-year-old male with a past medical history as outlined was admitted through the ED on 11/23/2021 for acute opioid withdrawal. His drug of choice was fentanyl which he usually snorts it and his last use was around 5 AM on the day of admission. He also admitted to using marijuana and occasionally using fentanyl. He had been through detox a few weeks prior but subsequently relapsed. He admitted to restless legs, abdominal cramps and rhinorrhea. R eview of systems otherwise negative. He was admitted and managed for acute repair withdrawal and started on opioid withdrawal protocol with buprenorphine. He tolerated the 3-day detox process and did well. Patient preferred to be discharged to a residential rehab facility and this was done on 11/28/2021. He is to follow-up with his primary care doctor within 1 to 2 weeks. Patient seen and examined prior to discharge. He had no active complaints and had an uneventful night and review of systems otherwise negative. Labs and vitals reviewed. Home medication reviewed and reconciled. Physical Exam Const alert, oriented x3 and no apparent distress Constitutional Narrative: cachetic; BMI is only 16 General Appearance: cooperative and comfortable Orientation / Consciousness: awake Exam Limitations: no limitations HEENT normocephalic, head/scalp atraumatic, hearing grossly normal bilaterally, moist oral mucous membranes and oropharynx normal Mouth: oral and palatal mucosa normal Eyes PERRL, EOMs intact bilaterally and conjunctivae normal Neck no lymphadenopathy, supple and no JVD Resp normal respiratory effort, no retractions, no use of accessory muscles and clear to auscultation bilaterally Cardio regular rate, regular rhythm, S1 normal heart sound, S2 normal heart sound and no murmurs GI normal to inspection, nondistended, normoactive bowel sounds, soft to palpation, non-tender and non-distended Extremity normal to inspection, full ROM and no clubbing, cyanosis or edema Skin no rashes or lesions noted and no wounds Neuro oriented x3, CN's II-XII intact bilaterally, moves all extremities and no focal motor deficits Sensorium / Orientation: awake Speech: speech normal Motor Exam: strength 5/5 throughout Psych affect normal Medical Records Data Medical Nutrition Assessment Dietitian: Malnutrition Criteria Met Start: 11/23/21 16:28 Freq: Status: Active Protocol: Document 11/23/21 16:28 RMA (Rec: 11/23/21 16:28 RMA [id number]) Nutrition Malnutrition Evidence of Malnutrition Exists Yes Malnutrition (severe): Social/Behavioral/ Environmental Evidenced By Suboptimal Energy Intake ( Severe),Weight Loss (Severe), Physical Changes (Severe) Clinical Problem Chronic Disease or Condition Related Malnutrition Etiology Severe protein-calorie malnutrition in the context of social circumstance related to inadequate oral intake and polysubstance abuse Signs/Symptoms as evidenced by ~12-13% wt loss x 6 months, ~4% wt loss x past 2 weeks, BMI 16.3, PO/ nona inadequate and meeting less than 50% estimated nutrition needs; +NFPA with obvious visible signs of muscle/fat wasting in the face , clavicle, arms and legs Status Active Problem Recommendation Dietitian Recommendations/Changes Continue regular diet with 3 snack per day as ordered. Will d/c 240ml ensure clear w/ medpass and add 120 ml ensure plus high protein 4 times per day with medpass. Will add 240 ml ensure clear w / breakfast daily. Will add magic cup BID w/ lunch and dinner daily. Adjust ONS as needed to optimize oral intake and prevent further weight loss. Weight / BMI Weight Weight: 113 lb 12.136 oz Body Mass Index (BMI) 16.3 ABG / Lab / Microbiology Data Result Diagrams: 11/23/21 13:25 11/23/21 13:25 D/C Instructions Discharge Diet: Low fat / Low cholesterol Discharge Activity: Return to Normal Activity Weight Bearing Status: Weight bearing as tolerated Call your doctor if you observe: Fever of 101 or Higher, Shortness of breath, Swelling in the ankles and Chest pain Meaningful Use Info Meaningful Use Diagnoses (Choose all that apply): None applicable Discharge Plan Admission Admit Date/Time: 11/23/21 14:55 Primary Reason for Your Visit: acute opioid withdrawal Attending Provider: Blanca Jenkins Primary Care Provider: Naif Rojas Consulting Providers: Aguilar Funez ; Abram Wang Instructions Patient Instructions: ED Opioid Withdrawal Discharge Orders/Prescriptions Prescriptions: Continued Stiolto Respimat 2.5-2.5 mcg/actuation mist 2 puff INHALATION DAILY ibuprofen [IBU] 600 mg tablet 600 mg PO Q8H PRN (Reason: Pain) albuterol sulfate 90 mcg/actuation HFA aerosol inhaler 2 puff INHALATION Q4H PRN PRN (Reason: Shortness Of Breath Or Wheezing) Label Comments: INHALE 2 PUFFS BY MOUTH EVERY 4 HOURS NEEDED FOR SHORTNESS OF BREATH OR WHEEZING Ensure Liquid 240 ml PO DAILY bupropion HCl 300 mg tablet extended release 24 hr 300 mg PO DAILY omeprazole 20 mg tablet,delayed release (DR/EC) 20 mg PO DAILY Referrals / Follow Up: Naif Rojas MD [Primary Care Provider] - Within 2 Weeks Disposition Disposition (needs filled in before D/C Order can be placed): Home, Self Care Charges/Coding Visit Charges Inpatient E&M: 53628 Disch Hosp
--- NOTE | 2021-11-28 09:17 | PHA.DC.MR ---
Pharmacy Service has performed discharge medication reconciliation for this patient. The patient's discharge medication list was reviewed for discrepancies and discrepancies were resolved. Home Medications albuterol sulfate 90 mcg/actuation aerosol inhaler 2 puff inhalation Q4H PRN PRN Shortness Of Breath Or Wheezing 11/23/21 bupropion HCl 300 mg 24 hr tablet, extended release 300 mg PO DAILY ANXIETY 11/23/21 food supplemt, lactose-reduced (Ensure oral liquid) 240 ml PO DAILY SUPPLEMENT 11/23/21 ibuprofen 600 mg tablet (IBU) 600 mg PO Q8H PRN Pain 11/23/21 omeprazole 20 mg tablet,delayed release 20 mg PO DAILY GERD 11/23/21 tiotropium 2.5 mcg-olodaterol 2.5 mcg/actuation mist for inhalation (Stiolto Respimat) 2 puff inhalation DAILY 11/23/21
== END 2021-11-28 13:02 | disposition home or self-care (01) | DRG 896 ==
LOC: ED 14:39 → MS3 15:00
PROVIDERS: Emergency Provider Student in an Organized Health Care Education/Training Program; PCP Family Medicine; Visit Provider Student in an Organized Health Care Education/Training Program
DX: F11.23 Opioid dependence with withdrawal (principal); E43 Unspecified severe protein-calorie malnutrition; F33.2 Major depressive disorder, recurrent severe without psychotic features; Z68.1 Body mass index [BMI] 19.9 or less, adult; I73.9 Peripheral vascular disease, unspecified; F14.10 Cocaine abuse, uncomplicated; J43.9 Emphysema, unspecified; F12.10 Cannabis abuse, uncomplicated; F17.210 Nicotine dependence, cigarettes, uncomplicated; G89.29 Other chronic pain; F41.1 Generalized anxiety disorder; F34.1 Dysthymic disorder; Z79.899 Other long term (current) drug therapy
CPT/HCPCS: 36415; 80048; 80307; 82077; 85025; 94640; 97802; 99251; 99283; 99406; A4216; G0463; J2405

== ENCOUNTER → 2022-09-14 | Outpatient (CLI) | payer MEDICARE, MEDICAID, SELFPAY ==
[2022-09-14 12:31] LABS: Prolactin 4.2 ng/mL; Thyroid Stim Hormone (TSH) 0.65 uIU/mL (0.358-3.74)
[2022-09-21 11:09] LABS: Testosterone, % Free 1.56 % (1.50-4.20); Testosterone, Free 11.87 ng/dL (5.00-21.00); Testosterone, Total 761 ng/dL (264-916); Transferrin 236 mg/dL (177-329)
== END | disposition home or self-care (01) ==
LOC: MTLAB 09:48
PROVIDERS: PCP Nurse Practitioner Family; Referring Provider Nurse Practitioner Family; Visit Provider Nurse Practitioner Family
DX: E29.1 Testicular hypofunction (principal)
CPT/HCPCS: 36415; 84146; 84402; 84403; 84443; 84466

== ENCOUNTER 2022-10-21 13:18 | Emergency (ER) | payer MEDICARE, MEDICAID, SELFPAY ==
[2022-10-21 13:19] VITALS: BP 128/82; PULSE 77; RESP 16; TEMP 36.4; O2SAT 99; BMI 17.2
--- NOTE | 2022-10-21 13:59 | CT_ITS ---
STUDY: CT CHEST, ABDOMEN T PELVIS WITH CONTRAST REASON FOR EXAM: Male, 66 years old. persistent n/v, weight loss, cough, hx HCV -- WITH po IV contrast RADIATION DOSAGE (If Supplied By Facility): CTDIvol = ( 10.23 ) mGy, DLP = ( 535.21 ) mGycm TECHNIQUE: Transaxial imaging was performed following intravenous administration of Oral and amp; IV Gastrografin and amp; 75mL Isovue-370. Individualized dose optimization techniques were used for this CT. COMPARISON: 03/03/2021 FINDINGS: CHEST Moderate emphysema. Mild bilateral apical scarring including nodular scarring in the posterior right upper lobe. No new noncalcified nodule or mass. There is no demonstrated pleural abnormality. Normal heart and pericardium. Normal mediastinum. Normal hilar regions. Normal unenhanced pulmonary arteries. Normal aorta arch and descending thoracic aorta. Normal osseous structures. There is no demonstrated abnormality of the visualized upper abdomen. ABDOMEN The visualized lung bases are unremarkable. The visualized portions of the heart are within normal limits. Normal liver. There are surgical clips in the gallbladder fossa consistent with a prior cholecystectomy. Normal spleen. Normal pancreas. Normal bilateral adrenal glands. Normal right kidney. Normal left kidney. Normal visualized stomach. Normal small intestine. Normal colon. There is non-visualization of the appendix. Normal abdominal aorta. Normal inferior vena cava. Normal retroperitoneum. Normal abdominal wall. Normal osseous structures. PELVIS Normal urinary bladder. Normal visualized small intestine. Normal visualized colon. There is no pelvic fluid. There is no pelvic lymphadenopathy or mass lesion. Normal visualized pelvic arteries. Normal abdominal wall. Normal osseous structures. CT/CT Chest, Abd, Pel w/Contrast IMPRESSION: No acute abnormality. Electronically Signed: Roel Fallon MD at 16:51 EDT ,
--- NOTE | 2022-10-21 14:06 | ED.VIS.GI ---
HPI HPI - GI History of Present Illness Chief Complaint: Nausea/Vomiting Informant: patient Narrative Narrative: Patient presents with persistent vomiting for little more than a month. This has been off-and-on for about a year, but used to be very occasional until about a month or so ago. Now it is definitely every week, not necessarily every single day, some days worse than others. He has no pain with any of this. Food makes it worse, but he does not always have to eat in order to feel nauseated and vomit, which happens a lot in the mornings as I did today. He has Zofran from his PCP [employer], who we last saw 3 weeks ago. He has been losing weight unintentionally, about 15-20 pounds in the past 6 months or so, and he has been eating very little. He is able to drink fluids but sometimes that is difficult as well. He is urinating normally. He is having bowel movements and they are unremarkable, maybe a little constipated but no blood or melena. He has a mild chronic cough that is unchanged, no hemoptysis. No dyspnea. No chest pains. History of COPD and depression/anxiety, he is on medications for that but really nothing else. 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 Every time he has had hepatitis C viral counts, he states they have been 0. [facility] Medical History Alcohol use disorder Basal cell carcinoma (BCC) Chronic back pain Depression Dysthymia Emphysema lung Generalized anxiety disorder GERD (gastroesophageal reflux disease) Hemorrhoid Hepatitis C Iron deficiency anemia Major depressive disorder, recurrent severe without psychotic features Nicotine dependence, cigarettes, uncomplicated Osteoarthritis PAD (peripheral artery disease) Polysubstance abuse Severe protein-calorie malnutrition Smoker Substance abuse Home Medications bupropion HCl 300 mg 24 hr tablet, extended release 300 mg PO DAILY ANXIETY 11/23/21 [History Last Taken 11/23/21] food supplemt, lactose-reduced (Ensure oral liquid) 240 ml PO DAILY SUPPLEMENT 11/23/21 [History Last Taken 11/22/21] ibuprofen 600 mg tablet (IBU) 600 mg PO Q8H PRN Pain 11/23/21 [History Last Taken 2 Days Ago ~11/21/21] omeprazole 20 mg tablet,delayed release 20 mg PO DAILY GERD 11/23/21 [History Last Taken Unknown] ipratropium 0.5 mg-albuterol 3 mg (2.5 mg base)/3 mL nebulization soln 3 ml inhalation Q4H PRN PRN SOB &/OR WHEEZING #180 mL 12/05/21 [Rx Last Taken Unknown] diluent,naltrexone microsphere (Diluent For Vivitrol intramuscular solution) ml IM 03/27/22 [History Last Taken Unknown] albuterol sulfate 90 mcg/actuation aerosol inhaler 2 puff inhalation Q4H PRN PRN Shortness Of Breath Or Wheezing #3 ea 05/21/22 [Rx Last Taken Unknown] budesonide 1 mg/2 mL suspension for nebulization 1 mg (2 mL) inhalation BID #60 mL 05/21/22 [Rx Last Taken Unknown] Allergy/AdvReac Type Severity Reaction Status Date / Time buspirone [From BuSpar] Allergy Mild shaking, Verified 10/21/22 13:21 restless legs sucralfate [From Carafate] Allergy Other Verified 10/21/22 13:21 venom-honey bee Allergy Anaphylaxis Verified 10/21/22 13:21 [bee venom (honey bee)] Family History Mother Diabetes Heart disease Hypertension Thyroid disorder Ulcer Sister Asthma Heart disease Hypertension Cancer multiple myeloma Surgical History History of cataract extraction History of cholecystectomy (~2002) History of colonoscopy (~2018) Hx of endarterectomy Hx of local excision of skin lesion S/P peripheral artery angioplasty with stent placement Social History household members: friend(s) Smoking Status: Current every day smoker tobacco type: cigarettes Tobacco: How many years used: 50 Electronic Cigarette Use: not used second hand exposure: No quit status: considering quitting counseling given: provider counseling alcohol intake: former details: Sober since 2015. substance use type: other details: Fentanyl, snorted, does have prior IVDA history. ROS ROS ED Constitutional Constitutional ED: Denies chills or fever(s) Eyes Eyes: Denies change in vision or diplopia ENT ENT ED: Denies rhinorrhea or sore throat Cardiovascular Cardiovascular: Denies chest pain or palpitations Respiratory/Chest Respiratory/Chest: Denies cough or dyspnea Gastrointestinal Gastrointestinal: Reports nausea and vomiting; Denies abdominal pain, diarrhea or melena Genitourinary Genitourinary ED: Denies dysuria or hematuria Musculoskeletal Musculoskeletal: Denies back pain or neck pain Integumentary Denies abscess or rash Neurologic Neurologic: Denies headache(s), paresthesias or weakness Psychiatric Psychiatric: Denies anxiety or suicidal thoughts EXAM Physical Exam Const Vital Signs: 10/21/22 13:19 10/21/22 19:17 Temperature 97.5 F L Temperature Source Temporal Pulse Rate 77 77 Respiratory Rate 16 16 Blood Pressure 128/82 H 129/66 H Blood Pressure Mean 97 Pulse Ox 99 Oxygen Delivery Method Room Air Positive well nourished and well developed General Appearance ED: well developed and NAD HEENT Reports moist mucous membranes normocephalic and atraumatic Eyes PERRL and EOMs intact bilaterally Neck full ROM and supple Resp normal respiratory effort and clear to auscultation bilaterally Cardio regular rate, regular rhythm and no murmurs GI non-tender and non-distended Auscultation: normoactive bowel sounds Palpation: soft Back/Spine no CVA tenderness General Back: other FROM Extremity normal to inspection General Extremety ED: Negative for edema, pulses abnormal or tenderness General Extremity: Negative for edema or pulses abnormal Neuro oriented x3, CN's II-XII intact bilaterally and no sensory deficits noted Sensorium / Orientation: awake and alert Motor Exam: strength 5/5 throughout Skin no rashes or lesions noted and no wounds MDM MDM MDM Narrative Medical decision making narrative: Differential is wide here, especially in this patient who could have hepatocellular carcinoma as a result of chronic hep C, other intra-abdominal or intrathoracic cancer especially given his smoking history and COPD, and functional intestinal disorders are also in the differential as are endocrine issues. And screening for dangerous causes, labs and a CT of the chest, abdomen, pelvis were obtained. Other than mild prerenal azotemia, his work-up is completely normal including all of the imaging. I reviewed the images and the reports and I agree with them. His vital signs are normal and his exam is benign. We will advise that he follow-up as an outpatient. No indication for admission at this time. It appears he is already on omeprazole so no need to prescribe a PPI. Lab Data Attestation: I reviewed the patient's lab results. Labs: Laboratory Results - last 24 hr 10/21/22 10/21/22 14:12 16:25 WBC 8.7 RBC 3.94 L Hgb 11.3 L Hct 34.7 L MCV 88.1 MCH 28.7 MCHC 32.6 RDW Std Deviation 57.6 H RDW Coeff of Liliane 17.8 H Plt Count 306 MPV 10.0 Immature Gran % (Auto) 0.200 Neut % (Auto) 75.7 H Lymph % (Auto) 13.2 L [place] % (Auto) 10.1 H Eos % (Auto) 0.6 Baso % (Auto) 0.2 Absolute Neuts (auto) 6.6 Absolute Lymphs (auto) 1.15 Nucleated RBC % 0 Sodium 133 L Potassium 3.9 Chloride 102 Carbon Dioxide 26.0 Anion Gap 5 BUN 20 H Creatinine 1.04 Estim Creat Clear Calc 52.45 Est GFR (MDRD) Af Amer 91 Est GFR (MDRD) Non-Af 75 BUN/Creatinine Ratio 19.2 Glucose 92 Calcium 8.9 Total Bilirubin 0.30 AST 22 ALT 23 Alkaline Phosphatase 51 Total Protein 7.6 Albumin 3.6 Globulin 4.0 Albumin/Globulin Ratio 0.9 Lipase 24 Urine Color Yellow Urine Clarity Clear Urine pH 7.0 Ur Specific [place] 1.010 Urine Protein 15 H Urine Glucose (UA) Normal Urine Ketones Negative Urine Occult Blood Negative Urine Nitrite Negative Urine Bilirubin Negative Urine Urobilinogen Normal Ur Leukocyte Esterase 25 H Urine RBC 0 SEEN Urine WBC 0-5 SEEN Ur Squamous Epith Cells 0-5 SEEN Urine Bacteria 0 SEEN Urine Mucus 0 SEEN Radiography Diagnostic Testing: Clinical Impression(s) from Imaging Studies Chest/Abdomen/Pelvis CT 10/21/22 13:59 IMPRESSION: No acute abnormality. Electronically Signed: Roel Fallon MD at 16:51 EDT , Discharge Plan Triage Chief Complaint: Nausea/Vomiting ED Provider: Gautam Romero Dx/Rx/DC Orders Clinical Impression: Unintentional weight loss, Recurrent vomiting Instructions: ED Vomiting (Adult) Prescriptions: No Action Diluent For Vivitrol Solution IM ipratropium-albuterol 0.5 mg-3 mg(2.5 mg base)/3 mL solution for nebulization 3 ml inhalation Q4H PRN PRN (Reason: SOB &/OR WHEEZING) Qty: 180 6RF ibuprofen [IBU] 600 mg tablet 600 mg PO Q8H PRN (Reason: Pain) Ensure Liquid 240 ml PO DAILY bupropion HCl 300 mg tablet extended release 24 hr 300 mg PO DAILY omeprazole 20 mg tablet,delayed release (DR/EC) 20 mg PO DAILY albuterol sulfate 90 mcg/actuation HFA aerosol inhaler 2 puff INHALATION Q4H PRN PRN (Reason: Shortness Of Breath Or Wheezing) Qty: 3 3RF budesonide 1 mg/2 mL suspension for nebulization 1 mg inhalation BID Qty: 60 6RF Primary Care Provider: Claribel Guevara Referrals: Claribel Guevara, [employer] [Primary Care Provider] - As soon as possible Disposition Disposition: Home, Self Care Discharge Date/Time: 10/21/22 19:20
[2022-10-21] MEDS: 0.9% Normal Saline (1000mL) 1,000 ML 1000 ML IV (14:10)
[2022-10-21] MEDS: Ondansetron 4 MG/2 ML Vial IV (14:10)
[2022-10-21 14:24] LABS: Absolute Lymphocyte Count 1.15 X10^3/uL (0.83-4.51); Absolute Neutrophil Count 6.6 X10^3/uL (2.0-7.7); Basophil# 0.02 X10^3/uL; Basophil% 0.2 % (0-1); Eosinophil# 0.05 X10^3/uL; Eosinophils% 0.6 % (0-5); Hematocrit 34.7 % (40-54); Hemoglobin 11.3 g/dL (13.0-16.5); Lymphocyte # 1.15 X10^3/ul (0.83-4.51); Lymphocyte % 13.2 % (19-41); Mean Corp Hgb Conc 32.6 g/dL (32-36); Mean Corpuscular Hgb 28.7 pg (27.0-32.0); Mean Corpuscular Volume 88.1 fL (80-94); Monocyte# 0.88 X10^3/uL; Monocyte% 10.1 % (0-10); NRBC Flagged by Analyzer 0 % (0-5); Neutrophil # 6.62 X10^3/uL (2.7-7.7); Neutrophil % 75.7 % (47-70); Platelet Count 306 K/mm3 (150-450); RBC Distribution Width CV 17.8 % (11.6-14.6); RBC Distribution Width SD 57.6 fl (35.1-43.9); Red Blood Count 3.94 M/mm3 (4.6-6.2); White Blood Count 8.7 K/mm3 (4.4-11.0)
[2022-10-21 14:41] LABS: ALB/GLOB Ratio 0.9 RATIO (0.9-2.4); AST(SGOT) 22 U/L (15-37); Alanine Aminotransfer ALT/SGPT 23 U/L (16-61); Albumin, Serum 3.6 g/dL (3.2-5.0); Alkaline Phosphatase 51 U/L (45-117); Anion Gap 5 (5-15); BUN 20 mg/dL (7-18); BUN/Creat Ratio 19.2 RATIO (10-20); Calcium,Total 8.9 mg/dL (8.5-10.1); Chloride 102 mmol/L (98-107); Creatinine, Serum 1.04 mg/dL (0.70-1.30); EST Glomerular Filtration Rate 75 mL/min (>60); Est Glom Filt Rate - Afr Amer 91 mL/min (>60); Estimated Creatinine Clearance 52.45 ml/min; Glucose 92 mg/dL (74-106); Lipase 24 U/L (13-75); Potassium 3.9 mmol/L (3.5-5.1); Protein, Total 7.6 g/dL (6.4-8.2); Sodium Level 133 mmol/L (136-145)
[2022-10-21 16:32] LABS: Bacteria 0 SEEN /hpf (None Seen); Mucous, Urine 0 SEEN /hpf (<or=2+); Red Blood Cells-Urine 0 SEEN /hpf (0-5)
[2022-10-21 16:38] LABS: Color, Urine Yellow (Yellow); Glucose, Dipstick Normal (Normal); Ketone-Dipstick Negative (Negative); Leukocyte Esterase-Dipstick 25 /ul (Negative); Nitrite-Dipstick Negative (Negative); Occult Blood-Urine Negative /ul (Negative); Protein-Dipstick 15 mg/dl (Negative); Urine Bilirubin Dipstick Negative (Negative); Urine Clarity Clear (Clear); Urine Urobilinogen Normal (Normal)
[2022-10-21 16:52] LABS: Squamous Epithelial Cells - UA 0-5 SEEN /hpf (0-5); White Blood Cells 0-5 SEEN /hpf (0-5)
[2022-10-21 19:17] VITALS: BP 129/66; PULSE 77; RESP 16
== END 2022-10-21 19:20 | disposition home or self-care (01) ==
PROVIDERS: Emergency Provider Emergency Medicine; PCP Nurse Practitioner Family; Visit Provider Emergency Medicine
DX: R11.15 Cyclical vomiting syndrome unrelated to migraine (principal); J43.9 Emphysema, unspecified; R63.4 Abnormal weight loss; F17.210 Nicotine dependence, cigarettes, uncomplicated; Z68.1 Body mass index [BMI] 19.9 or less, adult; F32.A Depression, unspecified; F41.9 Anxiety disorder, unspecified; Z79.899 Other long term (current) drug therapy; Z86.19 Personal history of other infectious and parasitic diseases
CPT/HCPCS: 71260; 74177; 80053; 81001; 83690; 85025; 96361; 96374; 99282; J7030; Q9967; J2405

== ENCOUNTER → 2022-11-26 | Outpatient (CLI) | payer MEDICARE, MEDICAID, SELFPAY ==
[2022-11-26 12:25] LABS: Absolute Neutrophil Count 5.2 X10^3/uL (2.0-7.7); Basophil# 0.04 X10^3/uL; Basophil% 0.5 % (0-1); Eosinophil# 0.36 X10^3/uL; Eosinophils% 4.3 % (0-5); Hematocrit 33.2 % (40-54); Hemoglobin 10.9 g/dL (13.0-16.5); Lymphocyte % 25.1 % (19-41); Mean Corp Hgb Conc 32.8 g/dL (32-36); Mean Corpuscular Hgb 29.6 pg (27.0-32.0); Mean Corpuscular Volume 90.2 fL (80-94); Monocyte# 0.67 X10^3/uL; NRBC Flagged by Analyzer 0 % (0-5); Neutrophil # 5.17 X10^3/uL (2.7-7.7); Neutrophil % 61.9 % (47-70); Platelet Count 339 K/mm3 (150-450); RBC Distribution Width CV 17.9 % (11.6-14.6); RBC Distribution Width SD 59.1 fl (35.1-43.9); Red Blood Count 3.68 M/mm3 (4.6-6.2); White Blood Count 8.4 K/mm3 (4.4-11.0)
[2022-11-26 12:45] LABS: Vitamin B12 468 pg/mL (211-911); Vitamin D,25 Hydroxy 38.7 ng/mL
[2022-11-26 12:58] LABS: AST(SGOT) 19 U/L (15-37); Alanine Aminotransfer ALT/SGPT 18 U/L (16-61); Albumin, Serum 3.5 g/dL (3.2-5.0); Alkaline Phosphatase 84 U/L (45-117); Anion Gap 8 (5-15); BUN 20 mg/dL (7-18); BUN/Creat Ratio 19.2 RATIO (10-20); Chloride 109 mmol/L (98-107); Creatinine, Serum 1.04 mg/dL (0.70-1.30); EST Glomerular Filtration Rate 75 mL/min (>60); Est Glom Filt Rate - Afr Amer 91 mL/min (>60); Globulin 3.6 g/dL (2.2-4.2); Glucose 78 mg/dL (74-106); Iron 26 ug/dL (65-175); Potassium 3.9 mmol/L (3.5-5.1); Protein, Total 7.1 g/dL (6.4-8.2); Sodium Level 139 mmol/L (136-145); T4 Free Direct 1.01 ng/dL (0.76-1.46); Thyroid Stim Hormone (TSH) 3.22 uIU/mL (0.358-3.74)
== END | disposition home or self-care (01) ==
PROVIDERS: PCP Nurse Practitioner Family; Referring Provider Nurse Practitioner Family; Visit Provider Nurse Practitioner Family
DX: R53.83 Other fatigue (principal); D50.9 Iron deficiency anemia, unspecified; E55.9 Vitamin D deficiency, unspecified
CPT/HCPCS: 36415; 80053; 82306; 82607; 83540; 84439; 84443; 85025

== ENCOUNTER → 2022-12-18 | Outpatient (CLI) | payer MEDICARE, MEDICAID, SELFPAY ==
[2022-12-18 11:28] LABS: Cholesterol 136 mg/dL (200); High Density Lipoprotein 48 mg/dL; Triglycerides 50 mg/dL; Very Low Density Lipoprotein 10 mg/dL (5-40)
== END | disposition home or self-care (01) ==
LOC: LAB 10:05
PROVIDERS: PCP Nurse Practitioner Family; Referring Provider Nurse Practitioner Family; Visit Provider Nurse Practitioner Family
DX: E78.5 Hyperlipidemia, unspecified (principal)
CPT/HCPCS: 36415; 80061

== ENCOUNTER → 2023-01-18 | Outpatient (CLI) | payer MEDICARE, MEDICAID, SELFPAY ==
[2023-01-18 17:39] LABS: Absolute Lymphocyte Count 2.27 X10^3/uL (0.83-4.51); Absolute Neutrophil Count 4.2 X10^3/uL (2.0-7.7); Basophil# 0.03 X10^3/uL; Basophil% 0.4 % (0-1); Eosinophil# 0.26 X10^3/uL; Eosinophils% 3.5 % (0-5); Hematocrit 33.5 % (40-54); Hemoglobin 10.7 g/dL (13.0-16.5); Lymphocyte # 2.27 X10^3/ul (0.83-4.51); Lymphocyte % 30.7 % (19-41); Mean Corp Hgb Conc 31.9 g/dL (32-36); Mean Corpuscular Hgb 30.7 pg (27.0-32.0); Mean Platelet Vol. 10.1 fl (6.2-12.0); Monocyte# 0.57 X10^3/uL; Monocyte% 7.7 % (0-10); NRBC Flagged by Analyzer 0 % (0-5); Neutrophil # 4.24 X10^3/uL (2.7-7.7); Neutrophil % 57.4 % (47-70); Platelet Count 348 K/mm3 (150-450); RBC Distribution Width CV 16.1 % (11.6-14.6); RBC Distribution Width SD 57.1 fl (35.1-43.9); Red Blood Count 3.49 M/mm3 (4.6-6.2); White Blood Count 7.4 K/mm3 (4.4-11.0)
[2023-01-18 18:38] LABS: ALB/GLOB Ratio 1.2 RATIO (0.9-2.4); AST(SGOT) 15 U/L (15-37); Alanine Aminotransfer ALT/SGPT 16 U/L (16-61); Albumin, Serum 3.8 g/dL (3.2-5.0); Alkaline Phosphatase 52 U/L (45-117); Anion Gap 3 (5-15); BUN 16 mg/dL (7-18); BUN/Creat Ratio 15.8 RATIO (10-20); Calcium,Total 8.9 mg/dL (8.5-10.1); Chloride 110 mmol/L (98-107); Creatinine, Serum 1.01 mg/dL (0.70-1.30); EST Glomerular Filtration Rate 78 mL/min (>60); Est Glom Filt Rate - Afr Amer 94 mL/min (>60); Globulin 3.2 g/dL (2.2-4.2); Glucose 86 mg/dL (74-106); Sodium Level 138 mmol/L (136-145)
== END | disposition home or self-care (01) ==
LOC: BFHLAB 14:10
PROVIDERS: PCP Nurse Practitioner Family; Visit Provider Nurse Practitioner Family
DX: R10.11 Right upper quadrant pain (principal)
CPT/HCPCS: 36415; 80053; 85025

== ENCOUNTER → 2023-05-14 | Outpatient (CLI) | payer MEDICARE, MEDICAID, SELFPAY ==
[2023-05-14 12:36] VITALS: PULSE 79; PULSE 80; PULSE 90; PULSE 91; PULSE 92; PULSE 98; O2SAT 96; O2SAT 97
--- NOTE | 2023-05-15 10:09 | PCM.PSN.6M ---
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 Assistive device used: None Pre-test Oxygen Delivery Method Room Air Pulse Ox 96 Pulse Rate (60-100) 79 Dyspnea Teo Scale (0-10) 0 Exertion Teo Scale (6-20) 6 1st minute Oxygen Delivery Method Room Air Pulse Ox 97 Pulse Rate (60-100) 91 2nd minute Oxygen Delivery Method Room Air Pulse Ox 97 Pulse Rate (60-100) 91 3rd minute Oxygen Delivery Method Room Air Pulse Ox 97 Pulse Rate (60-100) 90 4th minute Oxygen Delivery Method Room Air Pulse Ox 96 Pulse Rate (60-100) 91 5th minute Oxygen Delivery Method Room Air Pulse Ox 96 Pulse Rate (60-100) 92 6th minute Oxygen Delivery Method Room Air Pulse Ox 97 Pulse Rate (60-100) 98 Dyspnea Teo Scale (0-10) 1 Exertion Teo Scale (6-20) 12 Post-test Oxygen Delivery Method Room Air Pulse Ox 96 Pulse Rate (60-100) 80 Full Laps Walked 18 Partial Lap, Number of Tiles Walked 2 Total Distance Walked (ft) 1064 Interpretation Interpretation: The patient ambulated 1064 feet over the course of 6 minutes beginning on room air without assistive devices. Pretesting oxygen saturation was noted to be 96% on room air. With ambulation, the shabbir oxygen saturation was 96%. There was no significant exertional oxygen desaturation. Recommendations Recommendations: There is no indication for the use of supplemental oxygen at this time.
== END | disposition home or self-care (01) ==
PROVIDERS: PCP Nurse Practitioner Family; Referring Provider Nurse Practitioner Acute Care; Visit Provider Nurse Practitioner Acute Care
DX: J44.9 Chronic obstructive pulmonary disease, unspecified (principal)
CPT/HCPCS: 94618

== ENCOUNTER → 2023-05-16 | Outpatient (CLI) | payer MEDICARE, MEDICAID, SELFPAY | END | disposition home or self-care (01) | LOC: PSN 12:10 | PROVIDERS: PCP Nurse Practitioner Family; Referring Provider Nurse Practitioner Acute Care; Visit Provider Nurse Practitioner Acute Care | DX: J44.9 Chronic obstructive pulmonary disease, unspecified (principal) | CPT/HCPCS: 94060; 94726; 94729 ==

== ENCOUNTER → 2023-06-05 | Outpatient (CLI) | payer MEDICARE, MEDICAID, SELFPAY ==
--- NOTE | 2023-06-05 18:47 | CT_ITS ---
STUDY: LOW DOSE CT LUNG CANCER SCREENING REASON FOR EXAM: Male, 67 years old. SMOKER RADIATION DOSAGE (If Supplied By Facility): CTDIvol = ( 2.01 ) mGy, DLP = ( 78.51 ) mGycm TECHNIQUE: No contrast was administered. Low dose technique was utilized (average mAS-38 and kVp 120). 1.25 mm axial source images with a slice interval of 1.25-mm were reconstructed in lung windows. 2.5 mm axial source images with a slice interval of 2.5-mm were reconstructed in lung windows. 5.0 mm axial source images with a slice interval of 5.0-mm were reconstructed in soft tissue windows. COMPARISON: 10/21/2022 Emphysema: Mild bilateral apical scarring, nodular on the right. Moderate emphysema. No noncalcified nodule or mass. Endobronchial lesion: None Aorta: Some calcified plaque within the aortic arch but no aortic aneurysm. CORONARY ARTERIES: Coronary artery calcification is seen. Heart: No cardiomegaly. Pulmonary artery: Normal Mediastinal nodes: Normal Other chest and abdominal findings: Mild dextroscoliosis of the thoracic spine. CT/Low Dose CT Lung Screening IMPRESSION: Lung-RADS category 1 - Continue annual screening with LDCT in 12 months. IMPORTANT NOTES FOR USE: ACR Lung-RADS Version 1.1 Assessment Categories Release Date: 2018 Category: Coded 0-4 bases on nodule(s) with highest degree of suspicion. Negative screen is defined as categories 1 and 2; a positive screen is defined as categories 3 and 4. Category 3 and 4A nodules that are unchanged on interval CT should be coded as category 2, and individuals returned to screening in 12 months. Category 4X: Category 3 or 4 nodules with additional imaging findings that increase the suspicion of lung cancer, such as spiculation, GGN that doubles in size in 1 year, enlarged lymph notes, etc. Category Modifiers: S (significant finding unrelated to lung cancer) Electronically Signed: Roel Fallon MD at 0:13 EDT ,
== END | disposition home or self-care (01) ==
LOC: CT 18:47
PROVIDERS: PCP Nurse Practitioner Family; Referring Provider Nurse Practitioner Acute Care; Visit Provider Nurse Practitioner Acute Care
DX: F17.210 Nicotine dependence, cigarettes, uncomplicated (principal); R91.1 Solitary pulmonary nodule
CPT/HCPCS: 71271

== ENCOUNTER 2023-08-20 11:30 | Outpatient (RCR) | payer MEDICARE, MEDICAID, SELFPAY ==
--- NOTE | 2023-06-26 11:42 | HP.PTEVAL_ITS ---
Patient's Visit Information Visit Information Visit Information: LEIGH LOCO is a 67 year old M referred to Physical Therapy by Dr. Javon Ybarra MD with a diagnosis of SPONDYLOLISTHESIS ,TROCHANTERIC BURSITIS. Date of Evaluation: 06/26/23 Physical Therapist: Morris Garcia, PT, Cert MDT, OCS Visit Plan Frequency: 2x /Week Duration: 4 Weeks Plan: PT INTERVENTIONS LUMBAR FLEXION ,DLS ,POSTURAL EX'S , ACTIVITY MODIFICATION AND MODALITIES NEEDED Subjective Subjective: This 67 y/o male presents to physical therapy with lumbar pain. Patient has had lumbar pain for many years. Patient seen DR Ybarra did x-rays showed Mild dextroscoliosis with degenerative disc disease. 5 mm of anterolisthesis of L5 on S1 which is unchanged on the flexion and extension views. Patient taking no medication. Patient wants conservative treatment no fusion. Patient has chronic right hip bursitis. Location lumbar and and lateral hip. Aggravating factors walking/standing,bending ,lifting adn sitting. Also walking aggravates hips right hip. Alleviating factors rest. Coughing/sneezing-. Bowel/bladder-. Patient sleeping okay. Patient pain affects QOL and function walking/standing. Pain affects sleeping. No Abnormal night pain. Patient goals to avoid surgery SOCIAL: single Pain Bilateral Back: Pain Intensity (Out of 10): 7 Pain Intensity Range: 10 Comment: walking Right Hip: Pain Intensity (Out of 10): 5 Pain Intensity Range: 10 Objective Objective: POSTURE: mild thoracic kyphosis trunk forward GAIT: mild forward posture reciprocal gait NEURO: denies paresthesia/tingling ,reflexes L3-4,L4-5 ,L5-S1 2/3 SYMMETRIES: align PALPATION: unremarkable LUMBAR ROM: flexion mod loss ,extension mod loss ,side glides mod loss with decrease segmental motion MMT: quads 4/5 ,hip flexion 4/5 ,hip abd (peak force) 17.8 right ,left 22.9 FLEXABLITY: mod tight hasmtrings Special Tests L/S Slump test left side: Negative L/S Slump test right side: Negative L/S Left Straight Leg Raise: Negative L/S Right Straight Leg Raise: Negative Lumbar Standing: Flexion - Mechanical Response: No effect Lumbar Standing: Flexion - Symptoms During Testing: No effect Lumbar Standing: Flexion - Symptoms After Testing: No effect Lumbar Standing: Extension - Symptoms During Testing: Increases Lumbar Standing: Extension - Symptoms After Testing: No worse Lumbar Standing: Right Side Glides - Mechanical Response: No effect Lumbar Standing: Right Side [place] - Symptoms During Testing: No effect Lumbar Standing: Right Side [place] - Symptoms After Testing: No effect Lumbar Standing: Left Side [place] - Mechanical Response: No effect Lumbar Standing: Left Side [place] - Symptoms During Testing: No effect Lumbar Standing: Left Side [place] - Symptoms After Testing: No effect R Hip Scour: Negative R Hip ALESSANDRO - Intraarticular Pathology: Negative R Hip Trendelenberg - Glut Medius: Negative R Hip [place] - IT Band: Negative Balance/Special Test Scores Oswestry Low Back Score: 31 Goals Goal 1:: Patient to be I with HEP for back Goal Time Frame: 4-6 Weeks Goal 2:: Patient to demonstrate 50% improvement with less pain and improved function Goal Time Frame: 4-6 Weeks Goal 3:: Patient to improve lumbar ROM for function of recovery for ADLS Goal Time Frame: 4-6 Weeks Goal 4:: Patient to improve peak force of hips abductors BY 5-10 # to improve function with walking Goal Time Frame: 4-6 Weeks Goal 5:: Patient to improve back oswestry by3-5 point to improve function and walking Goal Time Frame: 4-6 Weeks Rehabilitation Potential Physical Therapy Diagnosis: This patient has lumbar pain due to spondylolisthesis with pain ,decrease ROM ,pain with motion testing and positioning affects walking standing as well as hip thus benefit from skilled PT Rehabilitation Potential: Good Anticipated Interventions Patient/Client Instruction: Educate patient on: Condition and Plan of Care For the Purpose of:: To decrease pain, To increase ROM, To improve muscle performance and motor function, To improve ability to perform ADL's, To increase tolerance to activity/condition/position, To improve ability of physical actions for home/community/work/leisure, To improve health of tissue, To decrease soft tissue restriction, To increase flexibility/ROM and To prevent re-injury Therapeutic Exercise to Include: Strength training, Postural training, Flexibilty training and Dynamic Lumbar Stabilization For the Purpose of:: To decrease pain, To increase ROM, To improve muscle performance and motor function, To improve ability to perform ADL's, To increase tolerance to activity/condition/position, To improve ability of physical actions for home/community/work/leisure, To improve health of tissue, To decrease soft tissue restriction and To increase flexibility/ROM TENS: Yes IF ES: Yes Cryotherapy (ice pack, ice massage): Yes Thermo therapy (hot pack): Yes Ultrasound (thermal/non thermal): Yes For the Purpose of:: To decrease pain, To increase ROM, To improve nutrient delivery to tissue, To increase oxygenation perfusion, To improve health of tissue and To decrease soft tissue restriction Text: Thank you for the opportunity to evaluate your patient. For Medicare and Medicare HMO plans, please review the plan of care and approve it. It will need to be FAXED BACK to us at [phone] for Medicare purposes. For Medicare only, by signing this I certify the plan of care. Please let me know if there are questions or concerns regarding this plan of care. Physician Signatu re: Date:
--- NOTE | 2023-08-20 12:15 | HP.PTDCSUM ---
Discharge Summary D/C summary: It has been my pleasure to treat LEIGH LOCO referred by Dr. Javon Ybarra MD, with the diagnosis of SPONDYLOLISTHESIS ,TROCHANTERIC BURSITIS for a total of 12 visit(s). Discharge Date: 08/20/23 Please see the following information for a summary of their discharge status. Subjective Subjective: Doing some better with getting stronger Pain Bilateral Back: Pain Intensity (Out of 10): 3 Right Hip: Pain Intensity (Out of 10): 3 Overall Improvement % Improvement: 50 Objective Objective/Function: POSTURE: mild thoracic kyphosis trunk forward GAIT: mild forward posture reciprocal gait NEURO: denies paresthesia/tingling ,reflexes L3-4,L4-5 ,L5-S1 2/3 SYMMETRIES: align PALPATION: unremarkable LUMBAR ROM: flexion mod loss ,extension mod loss ,side glides mod loss with decrease segmental motion MMT: quads 4/5 ,hip flexion 4/5 ,hip abd (peak force) 23.6 right ,left 224.9 FLEXABLITY: mod tight hamstrings Goals Goal 1:: Patient to be I with HEP for back Goal Progress: Goal Met Goal 2:: Patient to demonstrate 50% improvement with less pain and improved function Goal Progress: Goal Met Goal 3:: Patient to improve lumbar ROM for function of recovery for ADLS Goal Progress: Progressing Goal 4:: Patient to improve peak force of hips abductors BY 5-10 # to improve function with walking Goal Progress: Goal Met Goal 5:: Patient to improve back oswestry by3-5 point to improve function and walking Goal Progress: Goal Met Plan Plan: D/C TO HEP D/C Information Discharge Comments: HEP AND [facility] d/c sentence: If there are questions or concerns regarding this patient's physical therapy, please feel free to call me at [phone]. Thank you for the referral of this patient. Sincerely, Morris Garcia, PT, Cert MDT, OCS Balance/Gait/Functional tests Balance/Special Test Scores Oswestry Low Back Score: 7 Improvement % Improvement: 50
== END 2023-08-20 19:00 | disposition home or self-care (01) ==
LOC: PT 11:30
PROVIDERS: PCP Nurse Practitioner Family; Referring Provider Orthopaedic Surgery Orthopaedic Surgery of the Spine; Visit Provider Orthopaedic Surgery Orthopaedic Surgery of the Spine
DX: M70.61 Trochanteric bursitis, right hip (principal); M43.16 Spondylolisthesis, lumbar region
CPT/HCPCS: 97110; 97162; 97530

== ENCOUNTER → 2024-01-14 | Outpatient (CLI) | payer MEDICARE, MEDICAID, SELFPAY ==
[2024-01-14 18:05] LABS: Absolute Lymphocyte Count 1.39 X10^3/uL (0.83-4.51); Absolute Neutrophil Count 4.9 X10^3/uL (2.0-7.7); Basophil# 0.04 X10^3/uL; Basophil% 0.6 % (0-1); Eosinophil# 0.23 X10^3/uL; Eosinophils% 3.3 % (0-5); Hematocrit 36.7 % (40-54); Hemoglobin 11.8 g/dL (13.0-16.5); Lymphocyte # 1.39 X10^3/ul (0.83-4.51); Lymphocyte % 20.1 % (19-41); Mean Corp Hgb Conc 32.2 g/dL (32-36); Mean Corpuscular Hgb 31.6 pg (27.0-32.0); Mean Corpuscular Volume 98.4 fL (80-94); Mean Platelet Vol. 9.8 fl (6.2-12.0); Monocyte# 0.27 X10^3/uL; Monocyte% 3.9 % (0-10); NRBC Flagged by Analyzer 0 % (0-5); Neutrophil # 4.94 X10^3/uL (2.7-7.7); Neutrophil % 71.7 % (47-70); Platelet Count 298 K/mm3 (150-450); RBC Distribution Width SD 50.9 fl (35.1-43.9); Red Blood Count 3.73 M/mm3 (4.6-6.2); White Blood Count 6.9 K/mm3 (4.4-11.0)
[2024-01-14 18:36] LABS: ALB/GLOB Ratio 1.1 RATIO (0.9-2.4); AST(SGOT) 23 U/L (15-37); Alanine Aminotransfer ALT/SGPT 22 U/L (16-61); Albumin, Serum 3.7 g/dL (3.2-5.0); Alkaline Phosphatase 70 U/L (45-117); Anion Gap 6 (5-15); BUN 15 mg/dL (7-18); BUN/Creat Ratio 14.7 RATIO (10-20); Calcium,Total 9.3 mg/dL (8.5-10.1); Chloride 106 mmol/L (98-107); Cholesterol 137 mg/dL (200); Creatinine, Serum 1.02 mg/dL (0.70-1.30); EST Glomerular Filtration Rate 77 mL/min (>60); Est Glom Filt Rate - Afr Amer 93 mL/min (>60); Ferritin 30 ng/mL (26-388); Globulin 3.4 g/dL (2.2-4.2); Glucose 94 mg/dL (74-106); High Density Lipoprotein 57 mg/dL; Iron 85 ug/dL (65-175); PSA,Total - Annual Screen 3.62 ng/mL (0.00-4.00); Potassium 4.3 mmol/L (3.5-5.1); Protein, Total 7.1 g/dL (6.4-8.2); Sodium Level 139 mmol/L (136-145); Triglycerides 55 mg/dL; Very Low Density Lipoprotein 11 mg/dL (5-40)
== END | disposition home or self-care (01) ==
LOC: BFHLAB 15:42
PROVIDERS: PCP Nurse Practitioner Family; Referring Provider Nurse Practitioner Family; Visit Provider Nurse Practitioner Family
DX: Z12.5 Encounter for screening for malignant neoplasm of prostate (principal); I10 Essential (primary) hypertension; E78.5 Hyperlipidemia, unspecified; E55.9 Vitamin D deficiency, unspecified; D50.9 Iron deficiency anemia, unspecified
CPT/HCPCS: 36415; 80053; 80061; 82306; 82728; 83540; 84153; 85025; G0103

== ENCOUNTER → 2024-03-25 | Outpatient (CLI) | payer MEDICARE, MEDICAID, SELFPAY ==
--- NOTE | 2024-03-25 09:36 | ART_ITS ---
Reason For Study Reason For Study: RLE Claudication Left Segmental Pressures Left brachial= 155mmHg. Left high thigh = 157mmHg. Left low thigh = 162mmHg. Left calf = 139mmHg. Left posterior tibial artery = 148mmHg. Left dorsalis pedis artery = 131mmHg. Left digit = 95 mmHg. The left posterior tibial artery waveforms are biphasic. The left dorsalis pedis waveforms are triphasic. Right Segmental Pressures Right brachial= 152mmHg. Right high thigh = 121mmHg. Right low thigh = 127mmHg. Right calf = 108mmHg. Right posterior tibial artery = 107mmHg. Right dorsalis pedis artery = 99mmHg. Right digit = 67 mmHg. The right posterior tibial artery waveforms are biphasic. The right dorsalis pedis waveforms are monophasic. Indices The right ankle brachial index by the posterior tibial artery is 0.69. The right ankle brachial index by the dorsalis pedis is 0.64. The right digital-brachial index is 0.43. The right post exercise ankle brachial index is 0.26. The left ankle brachial index by the posterior tibial artery is 0.95. The left ankle brachial index by the dorsalis pedis is 0.85. The left digital-brachial index is 0.61. The left post exercise ankle brachial index is 0.72. VL/Lower Ext Art Exam w/ Exercise Interpretation Summary Right BETH 0.69, moderate arterial insuffiencey. Doppler/PVR waveforms and segme ntal pressures reveal aorto-iliac, distal SFA/popliteal disease. Right lower extremity with abnormal response to exercise and post exercise BETH in the severe category. Left BETH 0.95, mild arterial insufficiency. Doppler/PVR waveforms and segmental pressures reveal distal SFA/popliteal disease. Left lower extremity with abnormal response to exercise and post exercise BETH i n the moderate category. Ordering Physician: Geeta Mckenzie Referring Physician: Claribel Guevara Performed By: Yo Real RVT
--- NOTE | 2024-03-25 09:36 | CDU_ITS ---
Reason For Study Reason For Study: Bilateral Carotid Artery Disease Rt. Velocities/BP Lt. Velocities/BP Prox CCA 94.1/20.4 cm/sec. Prox CCA 102.7/20.4 cm/sec. Mid CCA 99.0/19.2 cm/sec. Mid CCA 94.1/19.2 cm/sec. Dist CCA 80.9/25.9 cm/sec. Dist CCA 100.2/24.1 cm/sec. Prox ICA 96.1/32.1 cm/sec. Prox ICA 72.4/25.1 cm/sec. Mid ICA 73.6/24.2 cm/sec. Mid ICA 94.2/35.8 cm/sec. Dist ICA 121.6/35.8 cm/sec. Dist ICA 72.0/27.8 cm/sec. Rt. ICA/CCA = 1.2. Lt. ICA/CCA = 1.0. Prox ECA 94.1/10.6 cm/sec. Prox ECA 83.0/11.8 cm/sec. Rt. Vert. 64.6/21.6 cm/sec. Lt. Vert. 57.21/17.9 cm/sec. Right Extracranial There is heterogeneous, irregular atherosclerotic plaque noted in the right common carotid artery. There is heterogeneous, irregular atherosclerotic plaque noted in the right internal carotid artery. The right internal carotid artery is very tortuous. There is intimal thickening but no significant atherosclerotic plaque noted in the right external carotid artery. Antegrade flow is noted in the right vertebral artery. Left Extracranial There is heterogeneous, irregular atherosclerotic plaque noted in the left common carotid artery. There is heterogeneous, irregular atherosclerotic plaque noted in the left internal carotid artery. There is intimal thickening but no significant atherosclerotic plaque noted in the left external carotid artery. Antegrade flow is noted in the left vertebral artery. Procedure Carotid Duplex [id number]. This is a Carotid Duplex examination using B-mode, color flow and specral Doppler. The exam was diagnostic. Exam performed in department. VL/Carotid Duplex Ultrasound Interpretation Summary Mild (<50%) stenosis right extracranial internal carotid. Mild (<50%) stenosis left extracranial internal carotid. Patent and antegrade vertebrals bilaterally. Ordering Physician: Geeta Mckenzie Referring Physician: Claribel Guevara Performed By: Yo Real RVT
== END | disposition home or self-care (01) ==
LOC: CVS 09:32
PROVIDERS: PCP Nurse Practitioner Family; Referring Provider Physician Assistant; Visit Provider Physician Assistant
DX: I65.23 Occlusion and stenosis of bilateral carotid arteries (principal); I73.9 Peripheral vascular disease, unspecified
CPT/HCPCS: 93880; 93924

== ENCOUNTER → 2024-03-27 | Outpatient (CLI) | payer MEDICARE, MEDICAID, SELFPAY ==
--- NOTE | 2024-03-27 14:29 | RAD_ITS ---
EXAM: XR Right Hip With Pelvis When Performed, 2 or 3 Views CLINICAL INDICATION: TECHNIQUE: Two or three views of the right hip with pelvis when performed. COMPARISON: No relevant prior studies available. FINDINGS: BONES/JOINTS: Unremarkable. No dislocation. No acute fracture. SOFT TISSUES: Unremarkable. RAD/HIP, UNI W/ Pelvis 2-3 Views IMPRESSION: 1. No acute fracture. 2. If symptoms persist, further evaluation with MRI is recommended. Reading Location: [facility]
== END | disposition home or self-care (01) ==
LOC: MTRAD 14:27
PROVIDERS: PCP Nurse Practitioner Family; Referring Provider Nurse Practitioner Family; Visit Provider Nurse Practitioner Family
DX: M25.551 Pain in right hip (principal)
CPT/HCPCS: 73502

== ENCOUNTER → 2024-05-12 | Outpatient (CLI) | payer MEDICARE, MEDICAID, SELFPAY | END | disposition home or self-care (01) | LOC: PSN 13:02 | PROVIDERS: PCP Nurse Practitioner Family; Referring Provider Nurse Practitioner Acute Care; Visit Provider Nurse Practitioner Acute Care | DX: J43.2 Centrilobular emphysema (principal) | CPT/HCPCS: 94060; 94726; 94729 ==

== ENCOUNTER 2024-05-18 12:23 | Outpatient (CLI) | payer MEDICARE, MEDICAID, SELFPAY ==
[2024-05-18 13:03] VITALS: PULSE 84; PULSE 88; PULSE 89; PULSE 91; O2SAT 97; O2SAT 98; O2SAT 99
--- NOTE | 2024-05-18 13:45 | CT_ITS ---
PROCEDURE: CTA ABD W/RUNOFF W/WO CONTRAST 05/18/2024 REASON FOR EXAM: RLE ATHERSCLEROSIS WITH PRIOR REVASC, CLAUDICATION TECHNIQUE: CTA imaging of the abdomen and pelvis with intravenous contrast. Coronal and Sagittal reconstruction series were provided. 3D, 3D post processing, 3D reconstructions, Maximum intensity projection (MIPs) Volume rendering and Shaded surface rendering was provided. CONTRAST: 100 mL Isovue 370 IV One or more dose reduction techniques were used (e.g., Automated exposure control, adjustment of the mA and/or kV according to patient size, use of iterative reconstruction technique). RADIATION DOSE SUMMARY: DLP: 970.55 mGycm COMPARISON: None FINDINGS: Clear lung bases. Normal heart size. No pleural effusion. The liver is negative. Cholecystectomy. No biliary dilation. The pancreas and spleen are negative. The adrenals and kidneys are negative. Urinary bladder is negative. Prostate is normal in size. Sigmoid diverticulosis without evidence of acute diverticulitis. No bowel wall thickening or evidence of obstruction. Appendix not seen. No lymphadenopathy within the abdomen or pelvis. No free peritoneal air. No ascites. Pars defects bilaterally at L5 with grade 1 anterolisthesis at L5-S1. Vascular: Normal caliber abdominal aorta. Patent celiac artery, SMA, and JASSI. Patent renal arteries. Right lower extremity: Patent stent within the common iliac artery. Mild stenosis of the internal iliac artery. Moderate stenosis of the distal external iliac artery. The common femoral artery is patent. The profunda is patent. The SFA demonstrates focal mild stenosis in the mid thigh. The popliteal artery is patent. Below the knee there is three-vessel runoff. Left lower extremity: Patent stent in the common iliac artery. Patent internal iliac artery. Moderate stenosis of the external iliac artery. Moderate stenosis of the common femoral artery. Patent profunda. Mild stenosis in the distal SFA. Moderate focal stenosis of the above knee popliteal artery. Below the knee there is three-vessel runoff. CT/CTA Abd w/Runoff W/WO Contrast IMPRESSION: No abdominal aortic aneurysm. Patent mesenteric vasculature. Right lower extremity demonstrates patent common iliac stent. There is moderat e stenosis of the distal external iliac artery, mild focal stenosis in the mid SFA. Three-vessel runoff below the knee. Left lower extremity demonstrates patent stent in the common iliac, moderate st enosis of the external iliac, and moderate stenosis of the common femoral artery. There is a mild stenosis in the distal SFA, moderate focal stenosis of the above knee popliteal artery. Below the knee there is three-vessel runoff. Reading [facility]
--- NOTE | 2024-05-20 12:38 | PCM.PSN.6M ---
PSN 6 Minute Walk Test 6 Minute Walk Test 6 Minute Walk Test: 6 Minute Walk Test PSN:6-Minute Walk Test Start: 05/18/24 13:02 Freq: Status: Active Protocol: [id number] Document 05/18/24 13:03 [facility] (Rec: 05/18/24 13:10 [facility] [id number]) 6 Minute Walk Test Date Performed 05/18/24 Time Performed 12:30 Height 5 ft 10 in Weight: 116 lb Weight in Pounds 116.[address]: [email or web address] Assistive device Cane used: Pre-test Oxygen Delivery Room Air Method Pulse Ox (%) 98 Pulse Rate (60-100 89 beats/min) Dyspnea Teo Scale ( 0 0-10) Exertion Teo Scale 6 (6-20) 1st minute Oxygen Delivery Room Air Method Pulse Ox (%) 97 Pulse Rate (60-100 88 beats/min) Dyspnea Teo Scale ( 0 0-10) Exertion Teo Scale 6 (6-20) Number of Rests 0 Taken 2nd minute Oxygen Delivery Room Air Method Pulse Ox (%) 98 Pulse Rate (60-100 91 beats/min) Dyspnea Teo Scale ( 0 0-10) Exertion Teo Scale 8 (6-20) Number of Rests 0 Taken 3rd minute Oxygen Delivery Room Air Method Pulse Ox (%) 98 Pulse Rate (60-100 91 beats/min) Dyspnea Teo Scale ( 0 0-10) Exertion Teo Scale 8 (6-20) Number of Rests 0 Taken 4th minute Oxygen Delivery Room Air Method Pulse Ox (%) 97 Pulse Rate (60-100 89 beats/min) Dyspnea Teo Scale ( 0 0-10) Exertion Teo Scale 8 (6-20) Number of Rests 0 Taken 5th minute Oxygen Delivery Room Air Method Pulse Ox (%) 97 Pulse Rate (60-100 91 beats/min) Dyspnea Teo Scale ( 0 0-10) Exertion Teo Scale 9 (6-20) Number of Rests 1 Taken 6th minute Oxygen Delivery Room Air Method Pulse Ox (%) 98 Pulse Rate (60-100 91 beats/min) Dyspnea Teo Scale ( 0 0-10) Exertion Teo Scale 10 (6-20) Number of Rests 0 Taken Post-test Oxygen Delivery Room Air Method Pulse Ox (%) 99 Pulse Rate (60-100 84 beats/min) Dyspnea Teo Scale ( 0 0-10) Exertion Teo Scale 6 (6-20) Full Laps Walked 11 Partial Lap, Number 31 of Tiles Walked Total Distance 680 Walked (ft) Interpretation Interpretation: The patient ambulated 680 feet over the course of 6 minutes beginning on room air with use of a cane. Pretesting oxygen saturation was noted to be 98% on room air. With ambulation, the shabbir oxygen saturation was 97%. Although there was evidence of impaired walk distance, there was no significant exertional oxygen desaturation. Recommendations Recommendations: There is no indication for the use of supplemental oxygen at this time.
== END 2024-05-18 23:59 | disposition home or self-care (01) ==
PROVIDERS: PCP Nurse Practitioner Family; Referring Provider Physician Assistant; Visit Provider Physician Assistant
DX: I70.211 Atherosclerosis of native arteries of extremities with intermittent claudication, right leg (principal); J43.2 Centrilobular emphysema; Z98.62 Peripheral vascular angioplasty status
CPT/HCPCS: 75635; 94618; Q9967; A4216

== ENCOUNTER 2024-06-10 10:42 | Inpatient (IN) | payer MEDICARE, MEDICAID, SELFPAY ==
[2024-06-10] VITALS (12 sets, daily range): BP systolic 130–183; BP diastolic 65–101; PULSE 64–72; RESP 12–18; TEMP 36.4–37.2; O2SAT 97–100; BMI 18.5; BMI 16.1
--- NOTE | 2024-06-10 11:07 | EX.ED.DYSGE1 ---
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 History of peripheral artery disease, tobacco history, he has been having intermittent claudication right lower extremity for months. He has had previous stents of both lower legs. He is currently following Dr. Phan. Last seen a week ago. Patient been having increasing groin pain with his history. He states he had a 10:30 AM surgery plan today. Sister unable to get him up to take him therefore EMS was called. Is currently 11 AM. He has been n.p.o. since last night he has not taken his aspirin for at least a week. Prior similar symptoms: Yes PFSH PFS Medical History Hepatitis C Severe protein-calorie malnutrition Substance abuse Smoker Polysubstance abuse Alcohol use disorder Generalized anxiety disorder Major depressive disorder, recurrent severe without psychotic features Dysthymia Emphysema lung Nicotine dependence, cigarettes, uncomplicated Iron deficiency anemia PAD (peripheral artery disease) Basal cell carcinoma (BCC) Hemorrhoid GERD (gastroesophageal reflux disease) Depression Osteoarthritis Chronic back pain Home Medications ?Medication ?Instructions ?Recorded ?Last Taken ?Type bupropion HCl 300 mg 24 hr tablet, 300 mg PO DAILY ANXIETY 11/23/21 06/10/24 History extended release ibuprofen 600 mg tablet (IBU) 600 mg PO Q8H PRN Pain 11/23/21 2 Days Ago History ~11/21/21 albuterol sulfate 90 mcg/actuation 2 puff inhalation Q4H PRN PRN 05/06/23 Unknown Rx aerosol inhaler Shortness Of Breath Or Wheezing #3 ea food supplemt, lactose-reduced 240 ml PO DAILY PRN SUPPLEMENT 06/13/23 Unknown History (Ensure oral liquid) hydroxyzine HCl 25 mg tablet 25 mg PO BID PRN anxiety 06/13/23 Unknown History aspirin 81 mg tablet,delayed 81 mg PO QDAY 02/28/24 06/09/24 History release (Adult Low Dose Aspirin) sertraline 50 mg tablet (Zoloft) 50 mg PO QDAY 02/28/24 06/10/24 History rosuvastatin 20 mg tablet 20 mg PO QDAY #30 tabs 04/10/24 06/09/24 Rx budesonide 1 mg/2 mL suspension 1 mg (2 mL) inhalation BID #120 mL 06/10/24 06/09/24 Rx for nebulization donepezil 5 mg tablet 5 mg PO QHS 06/10/24 06/09/24 History ipratropium 0.5 mg-albuterol 3 mg 3 ml inhalation BID SOB &/OR 06/10/24 06/09/24 History (2.5 mg base)/3 mL nebulization WHEEZING soln omeprazole 40 mg capsule,delayed 40 mg PO DAILY 06/10/24 06/10/24 History release Allergy/AdvReac Type Severity Reaction Status Date / Time buspirone (From BuSpar) Allergy Mild shaking, Verified 05/19/24 12:40 restless legs sucralfate (From Carafate) Allergy Other Verified 05/19/24 12:40 venom-honey bee (bee venom Allergy Anaphylaxis Verified 05/19/24 12:40 (honey bee)) Family History Mother Diabetes Heart disease Hypertension Thyroid disorder Ulcer Sister Asthma Heart disease Hypertension Cancer multiple myeloma Surgical History S/P peripheral artery angioplasty with stent placement History of colonoscopy (~2018) History of cataract extraction Hx of local excision of skin lesion Hx of endarterectomy History of cholecystectomy (~2002) Social History household members: friend(s) Smoking Status: Former smoker Tobacco: How many years used: 50 Electronic Cigarette Use: not used second hand exposure: No quit status: considering quitting alcohol intake: former details: Sober since 2015. substance use type: other details: Fentanyl, snorted, does have prior IVDA history. ROS ROS ED Constitutional Constitutional ED: Denies chills, fever(s) or sweats ENT ENT ED: Denies sore throat Cardiovascular Cardiovascular: Denies chest pain, leg edema, palpitations or racing heartbeat Respiratory/Chest Respiratory/Chest: Denies cough, dyspnea or dyspnea on exertion Gastrointestinal Gastrointestinal: Denies abdominal pain, diarrhea, nausea or vomiting Genitourinary Genitourinary ED: Denies dysuria, hematuria or urinary frequency Musculoskeletal Musculoskeletal: Reports extremity pain and other Details: Right groin pain, intermittent claudication right lower extremity ; Denies back pain or neck pain Integumentary Denies rash or wounds Neurologic Neurologic: Denies headache(s), paresthesias or weakness EXAM Physical Exam Const Vital Signs: 06/10/24 10:43 06/10/24 12:35 Temperature 98 F Temperature Source Oral Pulse Rate 66 Respiratory Rate 16 Blood Pressure 143/65 H 183/75 H Blood Pressure Mean 91 107 Pulse Ox 100 99 Oxygen Delivery Method Room Air Positive well nourished and well developed General Appearance ED: well developed and NAD HEENT Reports moist mucous membranes normocephalic and atraumatic Eyes General Eye ED: Yes normal appearance of both eyes Neck full ROM Chest Wall Chest: Negative for tenderness Resp normal respiratory effort and normal air movement Effort and Inspection: symmetric chest movement; Negative for respiratory distress Cardio regular rate, regular rhythm and no murmurs Peripheral Pulses: pulses 2+ throughout GI normal to inspection, nondistended, normoactive bowel sounds and non-tender Palpation: Negative for guarding or rebound tenderness present Extremity Extremity Narrative: Right groin no hernias palpated. Lower extremity soft compartments thigh and calf. There was distal pulses intact bilaterally. General Extremety ED: Negative for edema or tenderness General Extremity: Negative for edema Neuro oriented x3 and no sensory deficits noted Sensorium / Orientation: awake and alert Skin no rashes or lesions noted and no wounds MDM MDM MDM Narrative Medical decision making narrative: Interventions / MDM: Differential diagnosis: Intermittent claudication right lower extremity, peripheral artery disease, tobacco dependence. Anemia Diagnosis considered but do not suspect: No clinical arterial thrombus, no groin hernia palpated. GI bleed however stool guaiac negative My EKG interpretation: N/A Imaging independently reviewed and interpreted by myself: N/A External documents reviewed: Hemoglobin 11.19 January 2024 Test considered but not ordered: CT angiogram abdomen pelvis with runoff, not recommended by vascular team at this time. ED course: Patient pain groin intermittent claudication history of peripheral valve disease. He has procedure planned today. This was to be there half an hour ago. He has no groin hernia he has no clinical thrombus. There is difficulty getting him up to the car therefore EMS brought him here. We reached out to preop area and will contact Dr. Phan. Per preop we will establish IV with labs. Will start gentle KVO fluids. 1117: Received call from the vascular service, they would like ABIs performed through the ED, they will send their team down to evaluate the patient. 1230: Hemoglobin 6.7 down from 11.8 from January 2024. He denies any black tarry stools no bloody stools at home. There is slight pallor of conjunctiva. Rectal exam had brown stools we will send for Hemoccult. Will recheck H&H for potential lab error. Hemoglobin returned at 7. However Hemoccult also negative. I sent for iron studies. I communicated with vascular team, they did report ABIs were little worse than the previously. They did not recommend further imagings at this time. They are planning on rescheduling his procedure. I spoke with hospitalist Dr. Wang for admission due to anemia. Re-evaluation: stable Disposition discussed with patient/family/significant other: Patient and sister Case discussed with consulting clinician: Vascular surgery This note was generated with Beacon Reader dictation software. It may contain incorrect words, spelling, and punctuation that were not noted in checking the note before signing. Thank you Lab Data Attestation: I reviewed the patient's lab results. Labs: Laboratory Results - last 24 hr 06/10/24 06/10/24 06/10/24 11:32 12:57 13:45 WBC 7.2 RBC 2.66 L Hgb 6.7 L 7.0 L Hct 21.5 L 22.7 L MCV 80.8 MCH 25.2 L MCHC 31.2 L RDW Std Deviation 50.4 H RDW Coeff of Liliane 17.0 H Plt Count 335 MPV 9.7 Immature Gran % (Auto) 0.300 Neut % (Auto) 70.0 Lymph % (Auto) 18.8 L Levy % (Auto) 7.5 Eos % (Auto) 3.1 Baso % (Auto) 0.3 Absolute Neuts (auto) 5.0 Absolute Lymphs (auto) 1.35 Nucleated RBC % 0 PT 13.1 INR 1.0 APTT 32.0 Sodium 139 Potassium 3.9 Chloride 107 Carbon Dioxide 21.5 Anion Gap 11 BUN 17 Creatinine 0.97 Estim Creat Clear Calc 58.93 Est GFR (MDRD) Non-Af 84 BUN/Creatinine Ratio 17.2 Glucose 95 Calcium 9.0 Iron 12 L TIBC 361 Iron Saturation 3.0 L Unsaturated IBC 349 Ferritin 10 L Radiography Diagnostic Testing: Clinical Impression(s) from Imaging Studies Extremity Arterial Study 06/10/24 11:16 Interpretation Summary Right BETH 0.52, moderate arterial insufficiency. Doppler/PVR waveforms and segmental pressures reveal aorto-iliac disease. Left BETH 0.72, moderate arterial insufficiency. Doppler/PVR waveforms and segmental pressures reveal aorto-iliac disease. Ordering Physician: Angelo Zambrano Referring Physician: Claribel Guevara Performed By: Heather Lopez RVT Discharge Plan Dx/Rx/DC Orders Clinical Impression: Peripheral arterial disease, Claudication, intermittent, Tobacco dependence Disposition Disposition: Acute Care Hospital [facility] Discharge Date/Time: 06/10/24 14:37
--- NOTE | 2024-06-10 11:16 | ART_ITS ---
Reason For Study Reason For Study: BLE Claudication Procedure A bilateral lower extremity continuous wave Doppler with analog waveform analysis,segmental pressures,and ankle brachial indexes without exercise. Left Segmental Pressures Left high thigh = 141mmHg. Left low thigh = 140mmHg. Left calf = 126mmHg. Left posterior tibial artery = 119mmHg. Left dorsalis pedis artery = 112mmHg. The left posterior tibial artery waveforms are biphasic. The left dorsalis pedis waveforms are biphasic. Right Segmental Pressures Right brachial= 166mmHg. Right high thigh = 119mmHg. Right low thigh = 108mmHg. Right calf = 89mmHg. Right posterior tibial artery = 83mmHg. Right dorsalis pedis artery = 86mmHg. The right posterior tibial artery waveforms are monophasic. The right dorsalis pedis waveforms are monophasic. Indices The right ankle brachial index by the posterior tibial artery is 0.50. The right ankle brachial index by the dorsalis pedis is 0.52. The left ankle brachial index by the posterior tibial artery is 0.72. The left ankle brachial index by the dorsalis pedis is 0.67. VL/Lower Ext Art Exam w/o Exercis Interpretation Summary Right BETH 0.52, moderate arterial insufficiency. Doppler/PVR waveforms and segm ental pressures reveal aorto-iliac disease. Left BETH 0.72, moderate arterial insufficiency. Doppler/PVR waveforms and segme ntal pressures reveal aorto-iliac disease. Ordering Physician: Angelo Zambrano Referring Physician: Claribel Guevara Performed By: Heather Lopez RVT
[2024-06-10 11:43] LABS: Absolute Lymphocyte Count 1.35 X10^3/uL (0.83-4.51); Basophil# 0.02 X10^3/uL; Basophil% 0.3 % (0-1); Eosinophil# 0.22 X10^3/uL; Eosinophils% 3.1 % (0-5); Hematocrit 21.5 % (40-54); Hemoglobin 6.7 g/dL (13.0-16.5); Lymphocyte # 1.35 X10^3/ul (0.83-4.51); Lymphocyte % 18.8 % (19-41); Mean Corp Hgb Conc 31.2 g/dL (32-36); Mean Corpuscular Hgb 25.2 pg (27.0-32.0); Mean Corpuscular Volume 80.8 fL (80-94); Mean Platelet Vol. 9.7 fl (6.2-12.0); Monocyte# 0.54 X10^3/uL; Monocyte% 7.5 % (0-10); NRBC Flagged by Analyzer 0 % (0-5); Neutrophil # 5.04 X10^3/uL (2.7-7.7); Platelet Count 335 K/mm3 (150-450); RBC Distribution Width SD 50.4 fl (35.1-43.9); Red Blood Count 2.66 M/mm3 (4.6-6.2); White Blood Count 7.2 K/mm3 (4.4-11.0)
[2024-06-10 11:51] LABS: Prothrombin Time (Protime)PT. 13.1 SECONDS (11.7-14.9)
[2024-06-10 12:14] LABS: Anion Gap 11 (5-15); BUN 17 mg/dL (4-19); BUN/Creat Ratio 17.2 RATIO (10-20); Carbon Dioxide 21.5 mmol/L (21.0-32.0); Chloride 107 mmol/L (98-108); Creatinine, Serum 0.97 mg/dL (0.70-1.20); EST Glomerular Filtration Rate 84 (>60); Estimated Creatinine Clearance 58.93 ml/min (50-250); Glucose 95 mg/dL (70-99); Potassium 3.9 mmol/L (3.3-5.1); Sodium Level 139 mmol/L (133-145)
[2024-06-10] MEDS: 0.9% Normal Saline (1000mL) 1,000 ML 30 ML IV (12:19)
[2024-06-10 13:14] LABS: Hematocrit 22.7 % (40-54)
[2024-06-10 14:59] LABS: Ferritin 10 ng/mL (37-417); Iron 12 ug/dL (65-175); Iron Binding Capacity,Total 361 ug/dL (250-450); Iron Binding Capacity,Unsat 349 ug/dL (228-428)
--- NOTE | 2024-06-10 15:23 | PCM.HP.STD ---
HPI - General General Date of Admission: 06/10/24 HPI Narrative LEIGH LOCO, is a 68 M who presents to the hospital with significant weakness. He was post have surgery today as he has severe peripheral artery disease with vascular surgery however he was in so much pain and was so weak that his sister was not even able to get him out the door in time for surgery and she had to call EMS. When he arrived to the ER he was found to have a hemoglobin of 6.7 and on recheck was 7. Stool guaiac was negative for any blood and his iron studies show severe iron deficiency anemia with an iron of 12 and a saturation of 3% and a ferritin of 10. He has been typed and crossed for 2 units of blood. Arterial studies were obtained while in the ER which do show severe peripheral artery disease. He does feel little fatigued but no significant shortness of breath and the pain in his legs is okay at the moment. [facility] Medical History Hepatitis C Severe protein-calorie malnutrition Substance abuse Smoker Polysubstance abuse Alcohol use disorder Generalized anxiety disorder Major depressive disorder, recurrent severe without psychotic features Dysthymia Emphysema lung Nicotine dependence, cigarettes, uncomplicated Iron deficiency anemia PAD (peripheral artery disease) Basal cell carcinoma (BCC) Hemorrhoid GERD (gastroesophageal reflux disease) Depression Osteoarthritis Chronic back pain Home Medications ?Medication ?Instructions ?Recorded ?Last Taken ?Type bupropion HCl 300 mg 24 hr tablet, 300 mg PO DAILY ANXIETY 11/23/21 06/10/24 History extended release ibuprofen 600 mg tablet (IBU) 600 mg PO Q8H PRN Pain 11/23/21 2 Days Ago History ~11/21/21 albuterol sulfate 90 mcg/actuation 2 puff inhalation Q4H PRN PRN 05/06/23 Unknown Rx aerosol inhaler Shortness Of Breath Or Wheezing #3 ea food supplemt, lactose-reduced 240 ml PO DAILY PRN SUPPLEMENT 06/13/23 Unknown History (Ensure oral liquid) hydroxyzine HCl 25 mg tablet 25 mg PO BID PRN anxiety 06/13/23 Unknown History aspirin 81 mg tablet,delayed 81 mg PO QDAY 02/28/24 06/09/24 History release (Adult Low Dose Aspirin) sertraline 50 mg tablet (Zoloft) 50 mg PO QDAY 02/28/24 06/10/24 History rosuvastatin 20 mg tablet 20 mg PO QDAY #30 tabs 04/10/24 06/09/24 Rx budesonide 1 mg/2 mL suspension 1 mg (2 mL) inhalation BID #120 mL 06/10/24 06/09/24 Rx for nebulization donepezil 5 mg tablet 5 mg PO QHS 06/10/24 06/09/24 History ipratropium 0.5 mg-albuterol 3 mg 3 ml inhalation BID SOB &/OR 06/10/24 06/09/24 History (2.5 mg base)/3 mL nebulization WHEEZING soln omeprazole 40 mg capsule,delayed 40 mg PO DAILY 06/10/24 06/10/24 History release Allergy/AdvReac Type Severity Reaction Status Date / Time buspirone (From BuSpar) Allergy Mild shaking, Verified 05/19/24 12:40 restless legs sucralfate (From Carafate) Allergy Other Verified 05/19/24 12:40 venom-honey bee (bee venom Allergy Anaphylaxis Verified 05/19/24 12:40 (honey bee)) Family History Mother Diabetes Heart disease Hypertension Thyroid disorder Ulcer Sister Asthma Heart disease Hypertension Cancer multiple myeloma Surgical History S/P peripheral artery angioplasty with stent placement History of colonoscopy (~2018) History of cataract extraction Hx of local excision of skin lesion Hx of endarterectomy History of cholecystectomy (~2002) Social History household members: friend(s) Smoking Status: Former smoker Tobacco: How many years used: 50 Electronic Cigarette Use: not used second hand exposure: No quit status: considering quitting alcohol intake: former details: Sober since 2016. substance use type: other details: Fentanyl, snorted, does have prior IVDA history. ROS Constitutional Constitutional: Reports weakness; Denies chills, fatigue, fever(s) or malaise Eyes Eyes: Denies blurry vision ENT HEENT: Denies headache(s) or nasal discharge Cardiovascular Cardiovascular: Denies chest pain, dyspnea on exertion or syncope Respiratory/Chest Respiratory/Chest: Denies cough, shortness of breath at rest or shortness of breath with exertion Gastrointestinal Gastrointestinal: Denies constipation, diarrhea, nausea or vomiting Genitourinary Genitourinary: Denies dysuria Musculoskeletal Musculoskeletal: Reports other Details: Claudication Neurologic Neurologic: Denies focal weakness, numbness or tremor(s) Psychiatric Psychiatric: Denies anxiety or depression Vital Signs Vital Signs Vital Signs: 06/10/24 10:43 06/10/24 12:35 06/10/24 14:00 Temperature 98 F Temperature Source Oral Pulse Rate 66 68 Respiratory Rate 16 18 Blood Pressure 143/65 H 183/75 H 143/87 H Blood Pressure Mean 91 107 105 Pulse Ox 100 99 100 Oxygen Delivery Method Room Air Room Air Weight Weight: 129 lb 10.109 oz Body Mass Index (BMI) 18.5 Physical Exam Narrative General: Alert, Oriented x3, Cooperative, No apparent distress HEENT: Atraumatic, PERRLA, EOMI, Normocephalic Oral: Moist Mucosa Neck: Supple, No JVD Lungs: Diminished, Normal air movement, No rhonchi, No wheeze, No rales Cardiovascular: Regular rate, Regular Rhythm, Normal S1, Normal S2, No murmurs Abdomen: Soft, Non Tender, Non-Distended, No Hepato-splenomegaly Extremities: No edema, peripheral pulses are faint but intact in his lower extremities Skin: No rashes, No breakdown Musculoskeletal: No Tenderness to Palpation of Joints or Extremities Neurological: No focal neurological deficits, Motor Exam 5/5 strength throughout, Sensory exam intact to light touch and pain Psych/Mental Status: Normal Affect, Appropriate Results Lab / Micro Data 06/10/24 12:57 06/10/24 11:32 Labs: Laboratory Results - last 24 hr 06/10/24 11:32: WBC 7.2, RBC 2.66 L, Hgb 6.7 L, Hct 21.5 L, MCV 80.8, MCH 25.2 L, MCHC 31.2 L, RDW Std Deviation 50.4 H, RDW Coeff of Liliane 17.0 H, Plt Count 335, MPV 9.7, Immature Gran % (Auto) 0.300, Neut % (Auto) 70.0, Lymph % (Auto) 18.8 L, [place] % (Auto) 7.5, Eos % (Auto) 3.1, Baso % (Auto) 0.3, Absolute Neuts (auto) 5.0, Absolute Lymphs (auto) 1.35, Nucleated RBC % 0, PT 13.1, INR 1.0, APTT 32.0, Sodium 139, Potassium 3.9, Chloride 107, Carbon Dioxide 21.5, Anion Gap 11, BUN 17, Creatinine 0.97, Estim Creat Clear Calc 58.93, Est GFR (MDRD) Non-Af 84, BUN/Creatinine Ratio 17.2, Glucose 95, Calcium 9.0 06/10/24 12:57: Hgb 7.0 L, Hct 22.7 L 06/10/24 13:45: Iron 12 L, TIBC 361, Iron Saturation 3.0 L, Unsaturated IBC 349, Ferritin 10 L 06/10/24 13:59: Blood Type O POSITIVE, Antibody Screen NEGATIVE, Crossmatch See Detail Micro: Microbiology 06/10/24 12:44 Stool Stool Occult Blood (MARCIA) - Final Imaging Radiology Impression Extremity Arterial Study 06/10/24 11:16 Interpretation Summary Right BETH 0.52, moderate arterial insufficiency. Doppler/PVR waveforms and segmental pressures reveal aorto-iliac disease. Left BETH 0.72, moderate arterial insufficiency. Doppler/PVR waveforms and segmental pressures reveal aorto-iliac disease. Ordering Physician: Angelo Zambrano Referring Physician: Claribel Guevara Performed By: Heather Lopez RVT Assessment & Plan Assessment/Plan (1) Peripheral arterial disease: (2) Claudication, intermittent: (3) Iron deficiency anemia: QUALIFIERS: Iron deficiency anemia type: unspecified iron deficiency Qualified Code(s): D50.9 - Iron deficiency anemia, unspecified PLAN: Plan 1. Weakness secondary to iron deficiency anemia ? Hemoglobin 6.7 on initial check ? Will transfuse 2 units ? Will order a dose of Venofer for tomorrow morning ? He does need to be on an iron supplement on discharge ? Hemoccult is negative 2. Peripheral artery disease with claudication/hyperlipidemia/tobacco abuse ? He says he quit smoking about a week ago ? Will consult vascular surgery for evaluation and to see if maybe we can plan for surgery after his discharge from the hospital, in the meantime we will hold aspirin ? Continue with Crestor 3. Anxiety/depression/dementia ? Stable ? Continue with his home mental health medications 4. COPD ? Not in exacerbation ? Continue with albuterol and budesonide DVT: SCDs 75 minutes was spent on direct patient care, including documentation as well as chart review and collaboration with colleagues Charges/Coding Visit Charges Inpatient E&M: 06495 Init Hosp L3
[2024-06-10] MEDS: Budesonide Respules 0.5 MG/2 ML AMPUL.NEB. INHALATION (19:10)
[2024-06-10] MEDS: Donepezil HCl 5 MG Tablet PO (21:47)
[2024-06-10] MEDS: Atorvastatin Calcium 40 MG Tablet PO (21:47)
[2024-06-10] MEDS: 0.9% Saline Lock 10 ML Syringe IV (21:49)
[2024-06-11 06:00] VITALS: BP 169/92; PULSE 63; RESP 16; TEMP 36.3; O2SAT 96
[2024-06-11 06:33] LABS: Absolute Lymphocyte Count 1.58 X10^3/uL (0.83-4.51); Absolute Neutrophil Count 4.4 X10^3/uL (2.0-7.7); Basophil# 0.02 X10^3/uL; Basophil% 0.3 % (0-1); Eosinophils% 2.9 % (0-5); Hematocrit 32.1 % (40-54); Hemoglobin 10.3 g/dL (13.0-16.5); Lymphocyte # 1.58 X10^3/ul (0.83-4.51); Mean Corp Hgb Conc 32.1 g/dL (32-36); Mean Corpuscular Hgb 26.1 pg (27.0-32.0); Mean Corpuscular Volume 81.3 fL (80-94); Mean Platelet Vol. 9.2 fl (6.2-12.0); Monocyte# 0.66 X10^3/uL; Monocyte% 9.6 % (0-10); NRBC Flagged by Analyzer 0 % (0-5); Neutrophil # 4.38 X10^3/uL (2.7-7.7); Neutrophil % 63.9 % (47-70); Platelet Count 310 K/mm3 (150-450); RBC Distribution Width CV 15.9 % (11.6-14.6); RBC Distribution Width SD 47.6 fl (35.1-43.9); Red Blood Count 3.95 M/mm3 (4.6-6.2); White Blood Count 6.9 K/mm3 (4.4-11.0)
[2024-06-11 07:05] VITALS: PULSE 68; RESP 12
[2024-06-11 07:06] LABS: Anion Gap 10 (5-15); BUN 13 mg/dL (4-19); BUN/Creat Ratio 13.8 RATIO (10-20); Calcium,Total 9.5 mg/dL (7.6-11.0); Carbon Dioxide 21.1 mmol/L (21.0-32.0); Chloride 107 mmol/L (98-108); Creatinine, Serum 0.97 mg/dL (0.70-1.20); EST Glomerular Filtration Rate 84 (>60); Estimated Creatinine Clearance 51.22 ml/min (50-250); Glucose 98 mg/dL (70-99); Sodium Level 138 mmol/L (133-145)
[2024-06-11] MEDS: Budesonide Respules 0.5 MG/2 ML AMPUL.NEB. INHALATION ×2 (07:10→20:23)
--- NOTE | 2024-06-11 07:42 | CON.PCM.SX_ITS ---
Assessment & Plan Assessment/Plan (1) Peripheral arterial disease: (2) Iron deficiency anemia: QUALIFIERS: Iron deficiency anemia type: unspecified iron deficiency Qualified Code(s): D50.9 - Iron deficiency anemia, unspecified PLAN: Plan Do not think that his R thigh rest pain is vascular in etiology as would also expect significant rest pain more distally in the leg as well if this were the case, would consider musculoskeletal/neurogenic etiology. However, he does have restenosis around his previously placed iliac artery stents which will still need addressed; will reschedule angiogram on an outpatient basis after his anemia workup is complete and with time to demonstrate stable Hgb given the need for DAPT following vascular intervention. Would recommend restarting ASA 81mg daily if reasonable with respect to his anemia; no need to hold this for planned vascular intervention. HPI Consult Data Date of Consult: 06/11/24 HPI Narrative HPI Narrative: LEIGH LOCO, is a 68 M who was initially scheduled for outpatient angiogram to address known iliac stent restenosis on 06/10/24; however, that morning he developed significant R thigh pain even at rest and was unable to bear weight and very weak at home to the point where his sister could not get him to the car and had to call EMS. He then presented to [facility] ER. He did not have any R calf or foot rest pain. The thigh pain is anteromedial and radiates into his groin. In workup, he had updated arterial study which demonstrated decreased ABIs bilaterally from last exam in Mar with R BETH 0.52 with monophasic waveforms and L BETH 0.72 with biphasic waveforms. He also had CBC which revealed significant anemia with Hgb 6.7 which represented a significant decrease from his labs 4 months prior with Hgb around 11 (historically this has been his approximate baseline). Repeat Hgb was still decreased at 7 so he was admitted for further workup of this worsened anemia. This morning, saw patient resting comfortably in bed. He received 2 units PRBCs yesterday with good response, Hgb this morning 10.3. He was found to have significant iron-deficiency so he receiving Venofer. He also has pending GI consult to consider endoscopic evaluation for possible GI source of anemia. He reports that his R thigh pain has improved, still there but not nearly as bad as it was yesterday morning. He continues to be without rest pain in his calves/feet. He does have a history of spondylolisthesis; typically no persistent back pain. He also has a history of chronic hip bursitis. [facility] Medical History Hepatitis C Severe protein-calorie malnutrition Substance abuse Smoker Polysubstance abuse Alcohol use disorder Generalized anxiety disorder Major depressive disorder, recurrent severe without psychotic features Dysthymia Emphysema lung Nicotine dependence, cigarettes, uncomplicated Iron deficiency anemia PAD (peripheral artery disease) Basal cell carcinoma (BCC) Hemorrhoid GERD (gastroesophageal reflux disease) Depression Osteoarthritis Chronic back pain Home Medications ?Medication ?Instructions ?Recorded ?Last Taken ?Type bupropion HCl 300 mg 24 hr tablet, 300 mg PO DAILY ANX IETY 11/23/21 06/10/24 History extended release ibuprofen 600 mg tablet (IBU) 600 mg PO Q8H PRN Pain 1 2 Days Ago History ~11/21/21 albuterol sulfate 90 mcg/actuation 2 puff inhalation Q 4H PRN PRN 05/06/23 Unknown Rx aerosol inhaler Shortness Of Breath Or Wheez ing #3 ea food supplemt, lactose-reduced 240 ml PO DAILY PRN SUP PLEMENT 06/13/23 Unknown History (Ensure oral liquid) hydroxyzine HCl 25 mg tablet 25 mg PO BID PRN anxiety 06/13/23 Unknown History aspirin 81 mg tablet,delayed 81 mg PO QDAY 02/28/24 History release (Adult Low Dose Aspirin) sertraline 50 mg tablet (Zoloft) 50 mg PO QDAY 5 06/10/24 History rosuvastatin 20 mg tablet 20 mg PO QDAY #30 tabs 04/1006/09/24 Rx budesonide 1 mg/2 mL suspension 1 mg (2 mL) inhalation BID #120 mL 06/10/24 06/09/24 Rx for nebulization donepezil 5 mg tablet 5 mg PO QHS 06/10/24 5 History ipratropium 0.5 mg-albuterol 3 mg 3 ml inhalation BID SOB &/OR 06/10/24 06/09/24 History (2.5 mg base)/3 mL nebulization WHEEZING soln omeprazole 40 mg capsule,delayed 40 mg PO DAILY 06/10/24 History release Allergy/AdvReac Type Severity Reaction Status Date / Time buspirone (From BuSpar) Allergy Mild shaking, Verified 05/19/24 12:40 restless legs sucralfate (From Carafate) Allergy Other Verified 05/19/24 12:40 venom-honey bee (bee venom Allergy Anaphylaxis Verified 05/19/24 12:40 (honey bee)) Family History Mother Diabetes Heart disease Hypertension Thyroid disorder Ulcer Sister Asthma Heart disease Hypertension Cancer multiple myeloma Surgical History S/P peripheral artery angioplasty with stent placement History of colonoscopy (~2018) History of cataract extraction Hx of local excision of skin lesion Hx of endarterectomy History of cholecystectomy (~2002) Social History household members: friend(s) Smoking Status: Former smoker Tobacco: How many years used: 50 Electronic Cigarette Use: not used second hand exposure: No quit status: considering quitting alcohol intake: former details: Sober since 2015. substance use type: other details: Fentanyl, snorted, does have prior IVDA history. Physical Exam Const alert, oriented x3 and no apparent distress General Appearance: cooperative HEENT normocephalic, head/scalp atraumatic, TM's normal bilaterally and external nose normal Eyes EOMs intact bilaterally Neck General: normal visual inspection Resp normal respiratory effort and no retractions Effort and Inspection: able to speak in complete sentences Cardio Rate: regular rate Rhythm: regular rhythm Extremity Extremity Narrative: + R femoral pulse dopplerable pedal pulses bilaterally Skin no rashes or lesions noted Neuro CN's II-XII intact bilaterally Speech: speech normal Psych mental status grossly normal Appearance: grossly normal Lab / Micro Data 06/11/24 06:06 06/11/24 06:06 Labs: Laboratory Results - last 24 hr 06/10/24 11:32: WBC 7.2, RBC 2.66 L, Hgb 6.7 L, Hct 21.5 L, MCV 80.8, MCH 25.2 L , MCHC 31.2 L, RDW Std Deviation 50.4 H, RDW Coeff of Liliane 17.0 H, Plt Count 335, MPV 9.7, Immature Gran % (Auto) 0.300, Neut % (Auto) 70.0, Lymph % (Auto) 18.8 L , [place] % (Auto) 7.5, Eos % (Auto) 3.1, Baso % (Auto) 0.3, Absolute Neuts (auto) 5.0, Absolute Lymphs (auto) 1.35, Nucleated RBC % 0, PT 13.1, INR 1.0, APTT 32.0, Sodium 139, Potassium 3.9, Chloride 107, Carbon Dioxide 21.5, Anion Gap 11, BUN 17, Creatinine 0.97, Estim Creat Clear Calc 58.93, Est GFR (MDRD) Non-Af 84, BUN/Creatinine Ratio 17.2, Glucose 95, Calcium 9.0 06/10/24 12:57: Hgb 7.0 L, Hct 22.7 L 06/10/24 13:45: Iron 12 L, TIBC 361, Iron Saturation 3.0 L, Unsaturated IBC 349, Ferritin 10 L 06/10/24 13:59: Blood Type O POSITIVE, Antibody Screen NEGATIVE, Crossmatch See Detail 06/11/24 06:06: WBC 6.9, RBC 3.95 L, Hgb 10.3 L, Hct 32.1 L, MCV 81.3, MCH 26.1 L, MCHC 32.1, RDW Std Deviation 47.6 H, RDW Coeff of Liliane 15.9 H, Plt Count 310, MPV 9.2, Immature Gran % (Auto) 0.300, Neut % (Auto) 63.9, Lymph % (Auto) 23.0, [place] % (Auto) 9.6, Eos % (Auto) 2.9, Baso % (Auto) 0.3, Absolute Neuts (auto) 4.4, Absolute Lymphs (auto) 1.58, Nucleated RBC % 0, Sodium 138, Potassium 4.0, Chloride 107, Carbon Dioxide 21.1, Anion Gap 10, BUN 13, Creatinine 0.97, Estim Creat Clear Calc 51.22, Est GFR (MDRD) Non-Af 84, BUN/Creatinine Ratio 13.8, Glucose 98, Calcium 9.5 Micro: Microbiology 06/10/24 12:44 Stool Stool Occult Blood (MARCIA) - Final Imaging Radiology Impression Extremity Arterial Study 06/10/24 11:16 Interpretation Summary Right BETH 0.52, moderate arterial insufficiency. Doppler/PVR waveforms and segmental pressures reveal aorto-iliac disease. Left BETH 0.72, moderate arterial insufficiency. Doppler/PVR waveforms and segmental pressures reveal aorto-iliac disease. Ordering Physician: Angelo Zambrano Referring Physician: Claribel Guevara Performed By: Heather Lopez RVT Charges/Coding Visit Charges Inpatient E&M: 22117 Init Hosp L1
--- NOTE | 2024-06-11 08:27 | PCM.PN.HOSP ---
Reason for Visit Reason for Visit: Diagnoses Iron deficiency anemia, unspecified (06/10/24) Peripheral vascular disease, unspecified (06/10/24) Subjective Subjective Patient is a 68-year-old gentleman admitted with progressive generalized weakness found to be anemic with hemoglobin of 6. Objective Data Objective Data Vital Signs: Vital Signs Temp Pulse Resp BP Pulse Ox O2 Del Method 97.3 F L 68 12 169/92 H 96 Room Air 06/11/24 06:00 06/11/24 07:05 06/11/24 07:05 06/11/24 06:00 06/11/24 06:00 06/11/24 06:00 Oxygen Delivery Method Room Air Weight: 51.1 kg Body Mass Index (BMI) 16.1 Intake & Output: Intake and Output for Last 24 Hours 06/09/24 06/10/24 06/11/24 23:59 23:59 23:59 Intake Total 1400 / 1400 384 / 384 Output Total 0 / 500 500 / 500 Balance 1400 / 900 -116 / -116 Lab / Micro Data 06/11/24 06:06 06/11/24 06:06 Labs: Laboratory Results - last 24 hr 06/10/24 11:32: WBC 7.2, RBC 2.66 L, Hgb 6.7 L, Hct 21.5 L, MCV 80.8, MCH 25.2 L, MCHC 31.2 L, RDW Std Deviation 50.4 H, RDW Coeff of Liliane 17.0 H, Plt Count 335, MPV 9.7, Immature Gran % (Auto) 0.300, Neut % (Auto) 70.0, Lymph % (Auto) 18.8 L, [place] % (Auto) 7.5, Eos % (Auto) 3.1, Baso % (Auto) 0.3, Absolute Neuts (auto) 5.0, Absolute Lymphs (auto) 1.35, Nucleated RBC % 0, PT 13.1, INR 1.0, APTT 32.0, Sodium 139, Potassium 3.9, Chloride 107, Carbon Dioxide 21.5, Anion Gap 11, BUN 17, Creatinine 0.97, Estim Creat Clear Calc 58.93, Est GFR (MDRD) Non-Af 84, BUN/Creatinine Ratio 17.2, Glucose 95, Calcium 9.0 06/10/24 12:57: Hgb 7.0 L, Hct 22.7 L 06/10/24 13:45: Iron 12 L, TIBC 361, Iron Saturation 3.0 L, Unsaturated IBC 349, Ferritin 10 L 06/10/24 13:59: Blood Type O POSITIVE, Antibody Screen NEGATIVE, Crossmatch See Detail 06/11/24 06:06: WBC 6.9, RBC 3.95 L, Hgb 10.3 L, Hct 32.1 L, MCV 81.3, MCH 26.1 L, MCHC 32.1, RDW Std Deviation 47.6 H, RDW Coeff of Liliane 15.9 H, Plt Count 310, MPV 9.2, Immature Gran % (Auto) 0.300, Neut % (Auto) 63.9, Lymph % (Auto) 23.0, [place] % (Auto) 9.6, Eos % (Auto) 2.9, Baso % (Auto) 0.3, Absolute Neuts (auto) 4.4, Absolute Lymphs (auto) 1.58, Nucleated RBC % 0, Sodium 138, Potassium 4.0, Chloride 107, Carbon Dioxide 21.1, Anion Gap 10, BUN 13, Creatinine 0.97, Estim Creat Clear Calc 51.22, Est GFR (MDRD) Non-Af 84, BUN/Creatinine Ratio 13.8, Glucose 98, Calcium 9.5 Micro: Microbiology 06/10/24 12:44 Stool Stool Occult Blood (MARCIA) - Final Radiography Diagnostic Testing: Radiology Impression Extremity Arterial Study 06/10/24 11:16 Interpretation Summary Right BETH 0.52, moderate arterial insufficiency. Doppler/PVR waveforms and segmental pressures reveal aorto-iliac disease. Left BETH 0.72, moderate arterial insufficiency. Doppler/PVR waveforms and segmental pressures reveal aorto-iliac disease. Ordering Physician: Angelo Zambrano Referring Physician: Claribel Guevara Performed By: Heather Lopez RVT Physical Exam Narrative GENERAL: cooperative HEENT: Atraumatic; normocephalic EYES; Anicteric, Normal Conjunctiva NECK; supple, normal thyroid, RESPIRATORY: Diminished to auscultation CARDIOVASCULAR: Regular S1 S2, GI: soft, normoactive bowel sounds, : No Renal angle tenderness; EXTREMITIES: No edema, no clubbing, MUSCULOSKELETAL: no muscle wasting NEURO: Awake; no lateralizing signs. SKIN: No Rash PSYCH; Flat affect Assessment & Plan Assessment/Plan (1) Peripheral arterial disease: (2) Claudication, intermittent: (3) Iron deficiency anemia: QUALIFIERS: Iron deficiency anemia type: unspecified iron deficiency Qualified Code(s): D50.9 - Iron deficiency anemia, unspecified PLAN: Plan Patient is a 68-year-old gentleman admitted with progressive generalized weakness found to be anemic with hemoglobin of 6.7 1. Acute symptomatic anemia ? Patient presented with hemoglobin of 6.7. Iron studies did show severe iron deficiency anemia with iron level of 12 and ferritin of 10. Per patient his last scope was more than 10 years prior. Consult was placed to gastroenterology for endoscopic evaluation. Patient did receive 2 unit PRBC transfusion. Subsequently monitoring H&H with plans to transfuse if hemoglobin falls below 7 or patient is deemed to be symptomatic. Of note patient was taking aspirin as well as ibuprofen both medications held 2. Peripheral arterial disease ? Lower extremity arterial studies performed on 06/10/2024 did Right BETH 0.52, moderate arterial insufficiency. Doppler/PVR waveforms and segmental pressures reveal aorto-iliac disease. Left BETH 0.72, moderate arterial insufficiency. Doppler/PVR waveforms and segmental pressures reveal aorto-iliac disease. Consult placed to vascular surgery. Patient will need to undergo GI eval for his severe anemia prior to any intervention 3. Essential hypertension ? Patient currently not on any antihypertensive agents. His blood pressure was markedly elevated started on amlodipine as well as hydralazine as needed. Blood pressure greater than 170 4. COPD ? Currently not in exacerbation aerosol treatment as needed 5. Dyslipidemia ?Patient is on statin therapy, continued at home dose 6. Tobacco dependence ? Counseled on cessation, offered nicotine patch for tobacco cravings 7. Chronic hep C ? Plan is for patient to follow-up with primary care physician for subsequent care 8. History of polysubstance dependence Apparently remission 9. Depression with anxiety ? Patient is on sertraline as well as hydroxyzine as needed 10. GERD ? Patient is on omeprazole 11. DVT prophylaxis avoiding the use of chemoprophylaxis given patient severe anemia Charges/Coding Visit Charges Inpatient E&M: 31510 Subs Hosp L2
[2024-06-11] MEDS: Pantoprazole Sodium 40 MG Tablet PO (09:05)
[2024-06-11] MEDS: Sertraline 50 MG Tablet PO (09:05)
[2024-06-11] MEDS: buPROPion (XL) 300 MG TABLET.XL PO (09:05)
[2024-06-11] MEDS: hydrOXYzine PAM 25 MG Capsule PO (09:10)
[2024-06-11 09:15] VITALS: BP 162/85; PULSE 65; RESP 18; TEMP 37; O2SAT 97
[2024-06-11] MEDS: Sodium Ferric Gluconat/Sucrose 250 MG in 0.9% Normal Saline (250mL Bag) 250 ML 135 MG IV (09:41)
[2024-06-11] MEDS: amLODIPine 5 MG Tablet PO (10:42)
--- NOTE | 2024-06-11 11:16 | CASEMGMT ---
MARTHA LONDONO Assessment Face to Face with patient for initial transition planning/care coordination assessment. MARTHA LONDONO introduced self and role at [facility], pt voices understanding. Pt is A&Ox4 and is resting comfortably in bed and is calm. Care providers, pharmacy, and demographics verified. Admitting dx: Anemia LACE Strata: 2 PCP: Claribel Guevara Specialists: [facility] MedicSylvester villafuerte (Vascular) Preferred Pharmacy: [facility] Insurance: [facility] MCRDUAL COMPLETE, JAY/[employer] Prescription Benefit: Yes LNOK: Alba Tsai (Sister), Esmer Louis (Sister) Living Arrangements: Pt lives alone in a ground level apartment with a flat entrance ADLs/IADLs: Pt states that he is independent at baseline but is currently experiencing pain and weakness with ambulation. Transportation: Self, family (Sister). Denies concerns DME: Nebulizer. Inhaler. Cane. BP Machine.Pulse ox. Pt is currently 97% on RA. HHC/SNF: Denies history Pt?s goal: Home Plan: Anticipate DC home with OP Tx once medically ready. Current 6-Click score is 20. Pt states that he has great support through his friend as well as his sister who is a retired RN. Pt denies the need for HHC. Pt states that he would accept a script for OP Tx and will potentially utilize @ after DC. Pt states that he will make his own appt. Pt also plans to f/u with Vascular as an OP as he was projected to get surgery for his PAD completed yesterday. Pt denies further questions or concerns at this time. Report given to [employer] CM. Vijay Lacy RN, CM
[2024-06-11 15:15] VITALS: BP 158/78; PULSE 70; RESP 18; TEMP 36.7; O2SAT 97
[2024-06-11 20:25] VITALS: PULSE 74; RESP 16
[2024-06-11 21:15] VITALS: BP 152/92; PULSE 72; RESP 16; TEMP 36.5; O2SAT 95
[2024-06-11] MEDS: Atorvastatin Calcium 40 MG Tablet PO (21:43)
[2024-06-11] MEDS: Donepezil HCl 5 MG Tablet PO (21:43)
--- NOTE | 2024-06-11 23:12 | EX.PCM.CON.G ---
HPI Consult Data Date of Consult: 06/12/24 HPI Narrative HPI Narrative: LEIGH LOCO, is a 68 M who presents to the hospital with significant weakness. He was post have surgery today as he has severe peripheral artery disease with vascular surgery. However, he was sent to the ED for severe leg pain. When he arrived to the ER he was found to have a hemoglobin of 6.7 and on recheck was 7. Stool guaiac was negative for any blood and his iron studies show severe iron deficiency anemia with an iron of 12 and a saturation of 3% and a ferritin of 10. [facility] Medical History Hepatitis C Severe protein-calorie malnutrition Substance abuse Smoker Polysubstance abuse Alcohol use disorder Generalized anxiety disorder Major depressive disorder, recurrent severe without psychotic features Dysthymia Emphysema lung Nicotine dependence, cigarettes, uncomplicated Iron deficiency anemia PAD (peripheral artery disease) Basal cell carcinoma (BCC) Hemorrhoid GERD (gastroesophageal reflux disease) Depression Osteoarthritis Chronic back pain Home Medications ?Medication ?Instructions ?Recorded ?Last Taken ?Type bupropion HCl 300 mg 24 hr tablet, 300 mg PO DAILY ANXIETY 11/23/21 06/10/24 History extended release ibuprofen 600 mg tablet (IBU) 600 mg PO Q8H PRN Pain 11/23/21 2 Days Ago History ~11/21/21 albuterol sulfate 90 mcg/actuation 2 puff inhalation Q4H PRN PRN 05/06/23 Unknown Rx aerosol inhaler Shortness Of Breath Or Wheezing #3 ea food supplemt, lactose-reduced 240 ml PO DAILY PRN SUPPLEMENT 06/13/23 Unknown History (Ensure oral liquid) hydroxyzine HCl 25 mg tablet 25 mg PO BID PRN anxiety 06/13/23 Unknown History aspirin 81 mg tablet,delayed 81 mg PO QDAY 02/28/24 06/09/24 History release (Adult Low Dose Aspirin) sertraline 50 mg tablet (Zoloft) 50 mg PO QDAY 02/28/24 06/10/24 History rosuvastatin 20 mg tablet 20 mg PO QDAY #30 tabs 04/10/24 06/09/24 Rx budesonide 1 mg/2 mL suspension 1 mg (2 mL) inhalation BID #120 mL 06/10/24 06/09/24 Rx for nebulization donepezil 5 mg tablet 5 mg PO QHS 06/10/24 06/09/24 History ipratropium 0.5 mg-albuterol 3 mg 3 ml inhalation BID SOB &/OR 06/10/24 06/09/24 History (2.5 mg base)/3 mL nebulization WHEEZING soln omeprazole 40 mg capsule,delayed 40 mg PO DAILY 06/10/24 06/10/24 History release Allergy/AdvReac Type Severity Reaction Status Date / Time buspirone (From BuSpar) Allergy Mild shaking, Verified 05/19/24 12:40 restless legs sucralfate (From Carafate) Allergy Other Verified 05/19/24 12:40 venom-honey bee (bee venom Allergy Anaphylaxis Verified 05/19/24 12:40 (honey bee)) Family History Mother Diabetes Heart disease Hypertension Thyroid disorder Ulcer Sister Asthma Heart disease Hypertension Cancer multiple myeloma Surgical History S/P peripheral artery angioplasty with stent placement History of colonoscopy (~2018) History of cataract extraction Hx of local excision of skin lesion Hx of endarterectomy History of cholecystectomy (~2002) Social History household members: friend(s) Smoking Status: Former smoker Tobacco: How many years used: 50 Electronic Cigarette Use: not used second hand exposure: No quit status: considering quitting alcohol intake: former details: Sober since 2016. substance use type: other details: Fentanyl, snorted, does have prior IVDA history. ROS Constitutional Constitutional: Denies fatigue, fever(s), poor appetite, weight gain or weight loss Eyes Eyes: Denies blurry vision ENT HEENT: Denies headache(s) or nasal discharge Cardiovascular Cardiovascular: Denies chest pain, dyspnea on exertion or syncope Respiratory/Chest Respiratory/Chest: Denies cough, shortness of breath at rest or shortness of breath with exertion Gastrointestinal Gastrointestinal: Denies belching, bloating, change in bowel habits, change in stool character, chewing difficulty, coffee ground emesis, constipation, cramping, diarrhea, dyspepsia, dysphagia, early satiety, excessive flatus, fecal incontinence, heartburn, hematemesis, hematochezia, hemorrhoids, loose stools, melena, nausea, odynophagia, rectal bleeding, tenesmus, vomiting or weight changes Genitourinary Genitourinary: Denies dysuria Musculoskeletal Musculoskeletal: Reports other Details: Claudication Neurologic Neurologic: Denies focal weakness, numbness or tremor(s) Psychiatric Psychiatric: Denies anxiety or depression Physical Exam Narrative GENERAL: cooperative HEENT: Atraumatic; normocephalic EYES; Anicteric, Normal Conjunctiva NECK; supple, normal thyroid, RESPIRATORY: Diminished to auscultation CARDIOVASCULAR: Regular S1 S2, GI: soft, normoactive bowel sounds, : No Renal angle tenderness; EXTREMITIES: No edema, no clubbing, MUSCULOSKELETAL: no muscle wasting NEURO: Awake; no lateralizing signs. SKIN: No Rash PSYCH; Flat affect Lab / Micro Data 06/12/24 03:59 06/12/24 03:59 Labs: Laboratory Results - last 24 hr 06/11/24 06:06: WBC 6.9, RBC 3.95 L, Hgb 10.3 L, Hct 32.1 L, MCV 81.3, MCH 26.1 L, MCHC 32.1, RDW Std Deviation 47.6 H, RDW Coeff of Liliane 15.9 H, Plt Count 310, MPV 9.2, Immature Gran % (Auto) 0.300, Neut % (Auto) 63.9, Lymph % (Auto) 23.0, [place] % (Auto) 9.6, Eos % (Auto) 2.9, Baso % (Auto) 0.3, Absolute Neuts (auto) 4.4, Absolute Lymphs (auto) 1.58, Nucleated RBC % 0, Sodium 138, Potassium 4.0, Chloride 107, Carbon Dioxide 21.1, Anion Gap 10, BUN 13, Creatinine 0.97, Estim Creat Clear Calc 51.22, Est GFR (MDRD) Non-Af 84, BUN/Creatinine Ratio 13.8, Glucose 98, Calcium 9.5 Assessment & Plan Assessment/Plan (1) Peripheral arterial disease: (2) Claudication, intermittent: (3) Iron deficiency anemia: QUALIFIERS: Iron deficiency anemia type: unspecified iron deficiency Qualified Code(s): D50.9 - Iron deficiency anemia, unspecified PLAN: Plan Patient is a 68-year-old gentleman admitted with progressive generalized weakness found to be anemic with hemoglobin of 6.7 Acute symptomatic anemia ? Patient presented with hemoglobin of 6.7. Iron studies did show severe iron deficiency anemia with iron level of 12 and ferritin of 10. Per patient his last scope was more than 10 years prior. He will need to endoscopic evaluation prior to vascular surgery. Charges/Coding Visit Charges Inpatient E&M: 95712 Init Hosp L3
[2024-06-12] VITALS (13 sets, daily range): BP systolic 124–161; BP diastolic 71–94; PULSE 70–80; RESP 12–18; TEMP 36.4–36.9; O2SAT 94–100; BMI 16.1
[2024-06-12 05:15] LABS: Absolute Neutrophil Count 4.8 X10^3/uL (2.0-7.7); Basophil# 0.04 X10^3/uL; Basophil% 0.5 % (0-1); Eosinophil# 0.23 X10^3/uL; Eosinophils% 3.1 % (0-5); Hematocrit 36.1 % (40-54); Hemoglobin 11.5 g/dL (13.0-16.5); Mean Corp Hgb Conc 31.9 g/dL (32-36); Mean Corpuscular Hgb 25.8 pg (27.0-32.0); Mean Corpuscular Volume 81.1 fL (80-94); Mean Platelet Vol. 9.7 fl (6.2-12.0); NRBC Flagged by Analyzer 0 % (0-5); Platelet Count 370 K/mm3 (150-450); RBC Distribution Width CV 16.4 % (11.6-14.6); RBC Distribution Width SD 48.2 fl (35.1-43.9); Red Blood Count 4.45 M/mm3 (4.6-6.2); White Blood Count 7.5 K/mm3 (4.4-11.0)
--- NOTE | 2024-06-12 05:55 | EKG12_ITS ---
Test Reason : am ekg Blood Pressure : */* mmHG Vent. Rate : 69 BPM Atrial Rate : 69 BPM P-R Int : 116 ms QRS Dur : 92 ms QT Int : 406 ms P-R-T Axes : 75 80 86 degrees QTcB Int : 435 ms Normal sinus rhythm Cannot rule out Anterior infarct , age undetermined Abnormal ECG When compared with ECG of 16-Dec-2017 10:19, Minimal criteria for Anterior infarct are now Present Confirmed by ALTAGRACIA WILCOX ([id number]), film or videotape editor BEHZAD HEDRICK ([id number]) on 06/12/2024 1:23:53 PM Referred By: Confirmed By: ALTAGRACIA WILCOX
[2024-06-12 06:11] LABS: Cholesterol 107 mg/dL (<=200); High Density Lipoprotein 65 mg/dL; Low Density Lipoprotein Calc. 32 mg/dL; Magnesium 2.4 mg/dL (1.5-2.2); Phosphorus 3.8 mg/dL (2.7-4.5); Triglycerides 51 mg/dL; Very Low Density Lipoprotein 10 mg/dL (5-40); cholesterol:hdl ratio screen 1.64
[2024-06-12 06:13] LABS: AST(SGOT) 33 U/L (<=37); Alanine Aminotransfer ALT/SGPT 20 U/L (<=46); Albumin, Serum 4.5 g/dL (3.4-4.8); Alkaline Phosphatase 67 U/L (40-129); Anion Gap 12 (5-15); BUN 13 mg/dL (4-19); BUN/Creat Ratio 13.5 RATIO (10-20); Bilirubin, Direct 0.14 mg/dL (0.00-0.30); Calcium,Total 9.8 mg/dL (7.6-11.0); Chloride 106 mmol/L (98-108); Creatinine, Serum 0.98 mg/dL (0.70-1.20); EST Glomerular Filtration Rate 83 (>60); Estimated Creatinine Clearance 50.69 ml/min (50-250); Globulin 3.1 g/dL (2.2-4.2); Glucose 90 mg/dL (70-99); Potassium 4.3 mmol/L (3.3-5.1); Protein, Total 7.6 g/dL (5.9-8.4); Sodium Level 140 mmol/L (133-145); Total Bilirubin 0.28 mg/dL (0.00-1.30)
[2024-06-12] MEDS: Budesonide Respules 0.5 MG/2 ML AMPUL.NEB. INHALATION ×2 (07:01→20:50)
[2024-06-12] MEDS: hydrALAZINE 20 MG/ML Vial 10 MG IV (08:58)
--- NOTE | 2024-06-12 08:58 | PN.HOSP_ITS ---
Reason for Visit Reason for Visit: Diagnoses Iron deficiency anemia, unspecified (06/10/24) Peripheral vascular disease, unspecified (06/10/24) Subjective Subjective Patient seen hemoglobin remains stable. Consult was placed to GI for possible endoscopic evaluation prior to any intervention Objective Data Objective Data Vital Signs: Vital Signs Temp Pulse Resp BP Pulse Ox O2 Del Method 98.1 F 74 18 161/91 H 98 Room Air 06/12/24 08:55 06/12/24 08:55 06/12/24 08:55 06/12/24 08:55 06/12/24 08:55 06/12/24 08:55 Oxygen Delivery Method Room Air Weight: 51.1 kg Body Mass Index (BMI) 16.1 Intake & Output: Intake and Output for Last 24 Hours 06/10/24 06/11/24 06/12/24 23:59 23:59 23:59 Intake Total 1400 / 1400 1354 / 1354 0 / 0 Output Total 0 / 500 1300 / 1750 700 / 700 Balance 1400 / 900 54 / -396 -700 / -700 Lab / Micro Data 06/12/24 03:59 06/12/24 03:59 Labs: Laboratory Results - last 24 hr 06/12/24 03:59: WBC 7.5, RBC 4.45 L, Hgb 11.5 L, Hct 36.1 L, MCV 81.1, MCH 25.8 L, MCHC 31.9 L, RDW Std Deviation 48.2 H, RDW Coeff of Liliane 16.4 H, Plt Count 370, MPV 9.7, Immature Gran % (Auto) 0.400, Neut % (Auto) 64.0, Lymph % (Auto) 20.0, [place] % (Auto) 12.0 H, Eos % (Auto) 3.1, Baso % (Auto) 0.5, Absolute Neuts (auto) 4.8, Absolute Lymphs (auto) 1.50, Nucleated RBC % 0, Sodium 140, Potassium 4.3, Chloride 106, Carbon Dioxide 22.0, Anion Gap 12, BUN 13, Creatinine 0.98, Estim Creat Clear Calc 50.69, Est GFR (MDRD) Non-Af 83, BUN/Creatinine Ratio 13.5, Glucose 90, Calcium 9.8, Phosphorus 3.8, Magnesium 2.4 H, Total Bilirubin 0.28, Direct Bilirubin 0.14, AST 33, ALT 20, Alkaline Phosphatase 67, Total Protein 7.6, Albumin 4.5, Globulin 3.1, Triglycerides 51, Cholesterol 107, LDL Cholesterol, Calc 32, VLDL Cholesterol 10, HDL Cholesterol 65, Cholesterol/HDL Ratio 1.64 Micro: Microbiology 06/10/24 12:44 Stool Stool Occult Blood (MARCIA) - Final Physical Exam Narrative GENERAL: cooperative HEENT: Atraumatic; normocephalic EYES; Anicteric, Normal Conjunctiva NECK; supple, normal thyroid, RESPIRATORY: Diminished to auscultation CARDIOVASCULAR: Regular S1 S2, GI: soft, normoactive bowel sounds, : No Renal angle tenderness; EXTREMITIES: No edema, no clubbing, MUSCULOSKELETAL: no muscle wasting NEURO: Awake; no lateralizing signs. SKIN: No Rash PSYCH; Flat affect Assessment & Plan Assessment/Plan (1) Peripheral arterial disease: (2) Claudication, intermittent: (3) Iron deficiency anemia: QUALIFIERS: Iron deficiency anemia type: unspecified iron deficiency Qualified Code(s): D50.9 - Iron deficiency anemia, unspecified PLAN: Plan Patient is a 68-year-old gentleman admitted with progressive generalized weakness found to be anemic with hemoglobin of 6.7 1. Acute symptomatic anemia ? Patient presented with hemoglobin of 6.7. Iron studies did show severe iron deficiency anemia with iron level of 12 and ferritin of 10. Per patient his last scope was more than 10 years prior. Consult was placed to gastroenterology for endoscopic evaluation. Patient did receive 2 unit PRBC transfusion. Subsequently monitoring H&H with plans to transfuse if hemoglobin falls below 7 or patient is deemed to be symptomatic. Of note patient was taking aspirin as well as ibuprofen both medications held ? 06/12/2024;Patient seen hemoglobin remains stable. Consult was placed to GI for possible endoscopic evaluation prior to any intervention. Patient was subsequently kept n.p.o. overnight and scheduled to undergo EGD this a.m. 2. Peripheral arterial disease ? Lower extremity arterial studies performed on 06/10/2024 did Right BETH 0.52, moderate arterial insufficiency. Doppler/PVR waveforms and segmental pressures reveal aorto-iliac disease. Left BETH 0.72, moderate arterial insufficiency. Doppler/PVR waveforms and segmental pressures reveal aorto-iliac disease. Consult placed to vascular surgery. Patient will need to undergo GI eval for his severe anemia prior to any intervention 3. Essential hypertension ? Patient currently not on any antihypertensive agents. His blood pressure was markedly elevated started on amlodipine as well as hydralazine as needed. Blood pressure greater than 170 4. COPD ? Currently not in exacerbation aerosol treatment as needed 5. Dyslipidemia ?Patient is on statin therapy, continued at home dose 6. Tobacco dependence ? Counseled on cessation, offered nicotine patch for tobacco cravings 7. Chronic hep C ? Plan is for patient to follow-up with primary care physician for subsequent care 8. History of polysubstance dependence Apparently remission 9. Depression with anxiety ? Patient is on sertraline as well as hydroxyzine as needed 10. GERD ? Patient is on omeprazole 11. DVT prophylaxis Avoided the use of chemoprophylaxis given patient severe anemia Charges/Coding Visit Charges Inpatient E&M: 71503 Subs Hosp L2
[2024-06-12] MEDS: Lactated Ringers 1,000 ML 15 ML IV (11:00)
--- NOTE | 2024-06-12 11:44 | PCM.PRE.AN2 ---
ASA Classification* ASA Classification ASA Classification: 3 Assessment & Plan Anesthesia* Anesthesia Assessment Anesthesia Assessment: Discussed sedation and/or anesthesia options, risks, benefits, and alternatives with patient/parents/legal guardian/POA. Questions invited. The patient/parents/legal guardian/POA seems to understand and agrees to proceed with anesthesia plan. Reviewed the physical assessment, medical history, allergy history and patient home medications list prior to surgery/procedure/anesthetic and documented any changes. Performed airway and anesthesia risk assessments. Anesthesia Type Anesthesia Type: MAC Anesthesia Focused Assessment* Temperature: 98.1 F Pulse Rate: 74 Blood Pressure: 161/91 Respiratory Rate: 18 Pulse Ox: 98 Airway Assessment Mouth opens: >3 cm Mallampati Score: II Focused Labs Anesthesia Preop lab: CBC WBC 7.5 K/mm3 (4.4-11.0) 06/12/24 03:59 06/12/24 RBC 4.45 M/mm3 (4.6-6.2) L 06/12/24 03:59 06/12/24 Hgb 11.5 g/dL (13.0-16.5) L 06/12/24 03:59 06/12/24 Hct 36.1 % (40-54) L 06/12/24 03:59 06/12/24 Plt Count 370 K/mm3 (150-450) 06/12/24 03:59 06/12/24 CHEMISTRY Potassium 4.3 mmol/L (3.3-5.1) 06/12/24 03:59 06/12/24 Sodium 140 mmol/L (133-145) 06/12/24 03:59 06/12/24 Magnesium 2.4 mg/dL (1.5-2.2) H 06/12/24 03:59 06/12/24 Phosphorus 3.8 mg/dL (2.7-4.5) 06/12/24 03:59 06/12/24 BUN 13 mg/dL (4-19) 06/12/24 03:59 06/12/24 Creatinine 0.98 mg/dL (0.70-1.20) 06/12/24 03:59 06/12/24 Glucose 90 mg/dL (70-99) 06/12/24 03:59 06/12/24 TSH 3.22 uIU/mL (0.358-3.74) 11/26/22 09:26 11/26/22 COAG PT 13.1 SECONDS (11.7-14.9) 06/10/24 11:32 06/10/24 Pre-Assessment Diagnosis/Proposed Procedure Planned Operative Procedure(s): EGD Anesthesia History Anesthesia History - all around presser: Anesthesia History - all around presser Hx Hospitalization Yes: 12/201705/19/20 22:24 Any Problems With Anesthesia No 06/11/24 19:07 Cholinesterase deficiency No 06/11/24 19:07 You/Your Family Experience No 06/11/24 19:07 fever (hyperthermia) with Relationship Recent Exposure to Contagious No 06/11/24 19:07 Disease Does patient have nerve No 06/11/24 19:07 stimulator Patient instructed to have device shut off --Does patient have Pacemaker No 06/12/24 05:00 or ICD? When Was Last Pacemaker Check QUESTION #4 FULL TEXT: You/Your Family Experience fever (hyperthermia) with Anesthesia Last Oral Intake Last Oral intake: Last Oral Intake NPO since 00:00 06/12/24 05:00 Meds taken in AM with sips of No 06/12/24 05:00 water? Meds patient instructed to take am of surgery PONV PONV - all around presser: PONV - all around presser Female HX of Motion Sickness HX of N/V After Surgery Non-Smoker Duration of Surgery greater than 60 minutes Number of Risk Factors PONV Score Height & Weight Height & Weight: Anesthesia: Height & Weight Height 5 ft 10 in 06/12/24 05:00 Weight: 51.1 kg 06/12/24 05:00 Body Mass Index (BMI) 16.1 06/12/24 05:00 Respiratory Assessment Respiratory Assessment - all around presser: Respiratory Tract Infection Hx - all around presser Hx Respiratory Tract Infection No 06/11/24 19:07 STOP Sleep Apnea STOP Sleep Apnea - all around presser: STOP Sleep Apnea - all around presser Hx Hypertension No 06/10/24 15:29 Hx Sleep Apnea No 06/10/24 15:29 CPAP No 11/23/21 15:45 BIPAP Do you snore loudly (louder No 06/10/24 15:29 than talking or can be heard Do you often feel tired/ No 06/10/24 15:29 fatigued/ sleepy during daytime? Has anyone observed you stop No 06/10/24 15:29 breathing during sleep? STOP Results Negative 06/10/24 15:29 QUESTION #5 FULL TEXT : Do you snore loudly (louder than talking or can be heard through closed doors)? Tobacco Use History Tobacco Use History - all around presser: Tobacco Use History - all around presser Tobacco Use Smoking Status Former smoker 06/11/24 08:33 Hx Tobacco Use Yes 06/10/24 15:29 Years Smoking Packs Smoked per Day Smoking Cessation Date was Yes - quit smoking within 15 06/10/24 15:29 within the last 15 years years Hx Smoking Cessation Date Hx Smoking Cessation No 06/10/24 15:29 Counseling Hematologic Medial History Hematologic Hx - all around presser: Hematologic Medical Hx - census taker Hx of Blood Transfusion No 06/10/24 15:29 Hx of Transfusion in last 3 No 06/10/24 15:29 Months Date of Last Transfusion (if within last 3 months) Ever experience any problems No 06/10/24 15:29 with transfusion(s)? Specify any problems Hx of Preganancy in last 3 N/A 06/10/24 15:29 Months Nurse Filling Out Transfusion SWILEY 06/10/24 15:29 & Questions: Date: 06/10/24 06/10/24 15:29 Time: 15:30 06/10/24 15:29 Patient unable to answer at this time (ie. confused, unrespo /Reproduction History /Reproductive History - all around presser: /Reproductive Hx- all around presser Hx Now No 06/11/24 19:07 Gestational Age (in weeks): EDC: Hx Hx Para Hx Section SAB No 06/11/24 19:07 Active Medications Active Medications: Current Medications Generic Name Dose Route Start Last Admin Trade Name Freq PRN Reason Stop Dose Admin Albuterol Sulfate 2.5 mg 06/10/24 15:25 Albuterol 2.5 Mg/3 Ml Vial.Neb. INHALATION Q4H PRN Shortness Of Breath Or Wheezing Amlodipine Besylate 5 mg 06/11/24 10:45 06/11/24 10:42 Amlodipine 5 Mg Tablet PO 5 mg DAILY BEBE Administration Protocol Atorvastatin Calcium 40 mg 06/10/24 22:00 06/11/24 21:43 Atorvastatin Calcium 40 Mg Tablet PO 40 mg QHS BEBE Administration Budesonide 0.5 mg 06/10/24 15:30 06/12/24 07:01 Budesonide Respules 0.5 Mg/2 Ml Ampul.Neb. INHALATION 0.5 mg Q12H.RT BEBE Administration Bupropion HCl 300 mg 06/11/24 10:00 06/11/24 09:05 Bupropion (Xl) 300 Mg Tablet.Xl PO 300 mg DAILY BEBE Administration Donepezil HCl 5 mg 06/10/24 22:00 06/11/24 21:43 Donepezil Hcl 5 Mg Tablet PO 5 mg QHS BEBE Administration Hydralazine HCl 10 mg 06/11/24 10:32 06/12/24 08:58 Hydralazine 20 Mg/Ml Vial IV 10 mg Q4H PRN PRN Administration Hypertensive Emergency Protocol Hydroxyzine Pamoate 25 mg 06/10/24 15:08 06/11/24 09:10 Hydroxyzine Lois 25 Mg Capsule PO 25 mg BID PRN Administration anxiety Sodium Chloride 100 mls @ 15 mls/hr 06/10/24 15:01 IV .Q6H40M PRN Saline Flush Sodium Chloride 100 mls @ 15 mls/hr 06/10/24 15:01 IV .Q6H40M PRN Additional IVPB Infusion Lactated Ringer's 1,000 mls @ 15 mls/hr 06/12/24 11:00 06/12/24 11:00 IV 15 mls/hr .Q48H BEBE Administration Nutritional Formula (Lactose Free) 240 ml 06/11/24 10:20 Ensure Clear 120 Ml Liquid PO DAILY PRN SUPPLEMENT Nutritional Formula (Lactose Free) 120 ml 06/11/24 18:00 06/12/24 08:58 Ensure Plus High Protein 120 Ml Liquid PO Not Given 4X/DAY BEBE Pantoprazole Sodium 40 mg 06/11/24 10:00 06/11/24 09:05 Pantoprazole Sodium 40 Mg Tablet PO 40 mg DAILY BEBE Administration Sertraline HCl 50 mg 06/11/24 10:00 06/11/24 09:05 Sertraline 50 Mg Tablet PO 50 mg DAILY BEBE Administration Sodium Chloride 10 - 40 ml 06/10/24 15:01 06/10/24 21:49 0.9% Saline Lock 10 Ml Syringe IV 10 ml UD PRN Administration SALINE FLUSH PFSH Medical History Hepatitis C Severe protein-calorie malnutrition Substance abuse Smoker Polysubstance abuse Alcohol use disorder Generalized anxiety disorder Major depressive disorder, recurrent severe without psychotic features Dysthymia Emphysema lung Nicotine dependence, cigarettes, uncomplicated Iron deficiency anemia PAD (peripheral artery disease) Basal cell carcinoma (BCC) Hemorrhoid GERD (gastroesophageal reflux disease) Depression Osteoarthritis Chronic back pain Home Medications ?Medication ?Instructions ?Recorded ?Last Taken ?Type bupropion HCl 300 mg 24 hr tablet, 300 mg PO DAILY ANXIETY 11/23/21 06/10/24 History extended release ibuprofen 600 mg tablet (IBU) 600 mg PO Q8H PRN Pain 11/23/21 2 Days Ago History ~11/21/21 albuterol sulfate 90 mcg/actuation 2 puff inhalation Q4H PRN PRN 05/06/23 Unknown Rx aerosol inhaler Shortness Of Breath Or Wheezing #3 ea food supplemt, lactose-reduced 240 ml PO DAILY PRN SUPPLEMENT 06/13/23 Unknown History (Ensure oral liquid) hydroxyzine HCl 25 mg tablet 25 mg PO BID PRN anxiety 06/13/23 Unknown History aspirin 81 mg tablet,delayed 81 mg PO QDAY 02/28/24 06/09/24 History release (Adult Low Dose Aspirin) sertraline 50 mg tablet (Zoloft) 50 mg PO QDAY 02/28/24 06/10/24 History rosuvastatin 20 mg tablet 20 mg PO QDAY #30 tabs 04/10/24 06/09/24 Rx budesonide 1 mg/2 mL suspension 1 mg (2 mL) inhalation BID #120 mL 06/10/24 06/09/24 Rx for nebulization donepezil 5 mg tablet 5 mg PO QHS 06/10/24 06/09/24 History ipratropium 0.5 mg-albuterol 3 mg 3 ml inhalation BID SOB &/OR 06/10/24 06/09/24 History (2.5 mg base)/3 mL nebulization WHEEZING soln omeprazole 40 mg capsule,delayed 40 mg PO DAILY 06/10/24 06/10/24 History release Allergy/AdvReac Type Severity Reaction Status Date / Time buspirone (From BuSpar) Allergy Mild shaking, Verified 05/19/24 12:40 restless legs sucralfate (From Carafate) Allergy Other Verified 05/19/24 12:40 venom-honey bee (bee venom Allergy Anaphylaxis Verified 05/19/24 12:40 (honey bee)) Family History Mother Diabetes Heart disease Hypertension Thyroid disorder Ulcer Sister Asthma Heart disease Hypertension Cancer multiple myeloma Surgical History S/P peripheral artery angioplasty with stent placement History of colonoscopy (~2018) History of cataract extraction Hx of local excision of skin lesion Hx of endarterectomy History of cholecystectomy (~2002) Social History household members: friend(s) Smoking Status: Former smoker Tobacco: How many years used: 50 Electronic Cigarette Use: not used second hand exposure: No quit status: considering quitting alcohol intake: former details: Sober since 2016. substance use type: other details: Fentanyl, snorted, does have prior IVDA history. Review of Systems (Anesthesia) ROS Narrative System reviewed and no additional complaints, except as documented.
--- NOTE | 2024-06-12 14:10 | PCM.POST.ANE ---
Anesthesia: Postop Eval I Current Vital Signs Temperature: 98.2 F Pulse Rate: 78 Blood Pressure: 127/94 Respiratory Rate: 16 Pulse Ox: 97 Oxygen Delivery Method: Room Air Assessment Airway patent: Yes Spontaneous unlabored respirations: Yes Mental status: Awake nausea: No Vomiting: No Anesthesia Complication: No Fluid Hydration Crystalloid volume administer (ml): 500 Total IV fluid infused: 500 Progress Note Anesthesia document: Postop Eval 1 completed: Yes
[2024-06-12] MEDS: buPROPion (XL) 300 MG TABLET.XL PO (14:47)
[2024-06-12] MEDS: amLODIPine 5 MG Tablet PO (14:48)
[2024-06-12] MEDS: Sertraline 50 MG Tablet PO (14:48)
[2024-06-12] MEDS: Pantoprazole Sodium 40 MG Tablet PO (14:48)
--- NOTE | 2024-06-12 15:21 | CASEMGMT ---
MARTHA LONDONO received script for outpatient therapy. MARTHA LONDONO in to provide script to patient with [employer] information. Patient states he would like to schedule on his own. Patient denies further needs or concerns at discharge.
[2024-06-12] MEDS: Bisacodyl 5 MG Tablet 20 MG PO (15:45)
--- NOTE | 2024-06-12 16:56 | OP.EGD_ITS ---
Patient Name: Franki Manzo Procedure Date: 06/12/2024 1:50 PM Date of : 1955 Age: 68 Procedure: Upper GI endoscopy Indications: Acute post hemorrhagic anemia, Iron deficiency anemia, Unexplained iron deficiency anemia Providers: Sahil Tobin DO Medicines: Monitored Anesthesia Care Patient Profile: This is a 68 year old male. Refer to note in patient chart for documentation of history and physical. Patient has symptoms. Complications: No immediate complications. Procedure: Pre-Anesthesia Assessment: - Prior to the procedure, a History and Physical was performed, and patient medications and allergies were reviewed. The patient is competent. The risks and benefits of the procedure and the sedation options and risks were discussed with the patient. All questions were answered and informed consent was obtained. Patient identification and proposed procedure were verified by the physician in the pre-procedure area. Mental Status Examination: alert and oriented. Airway Examination: normal oropharyngeal airway and neck mobility. Respiratory Examination: clear to auscultation. CV Examination: normal. Prophylactic Antibiotics: The patient does not require prophylactic antibiotics. Prior Anticoagulants: The patient has taken no anticoagulant or antiplatelet agents except for NSAID medication. ASA Grade Assessment: III - A patient with severe systemic disease. After reviewing the risks and benefits, the patient was deemed in satisfactory condition to undergo the procedure. The anesthesia plan was to use monitored anesthesia care (MAC). Immediately prior to administration of medications, the patient was re-assessed for adequacy to receive sedatives. The heart rate, respiratory rate, oxygen saturations, blood pressure, adequacy of pulmonary ventilation, and response to care were monitored throughout the procedure. The physical status of the patient was re-assessed after the procedure. After obtaining informed consent, the endoscope was passed under direct vision. Throughout the procedure, the patient's blood pressure, pulse, and oxygen saturations were monitored continuously. The gastroscope was introduced through the mouth, and advanced to the fourth part of the duodenum. Small bowel enteroscopy was deemed necessary. The upper GI endoscopy was accomplished without difficulty. The patient tolerated the procedure well. Scope In: 1:54:57 PM Scope Out: 1:59:13 PM Total Procedure Duration Time 0 hours 4 minutes 16 seconds Findings: The examined esophagus was normal. A medium-sized hiatal hernia was present. The examined duodenum was normal. Impression: - Normal esophagus. - Medium-sized hiatal hernia. - Normal examined duodenum. - No specimens collected. Recommendation: - [facility]. - Clear liquid diet. - Continue present medications. - Colonoscopy in the am Procedure Code(s): --- Professional --- 30892, Small intestinal endoscopy, enteroscopy beyond second portion of duodenum, not including ileum; diagnostic, including collection of specimen(s) by brushing or washing, when performed (separate procedure) CPT copyright 2021 [employer]. All rights reserved. The codes documented in this report are preliminary and upon vegetable canner review may be revised to meet current compliance requirements. Sahil Tobin DO 06/12/2024 4:56:02 PM This report has been signed electronically. Number of Addenda: 0 Note Initiated On: 06/12/2024 1:50 PM
--- NOTE | 2024-06-12 16:56 | OP.CCLET_ITS ---
06/12/2024 Nelda Dobson Re : Upper GI endoscopy procedure for Franki Manzo Dear Ismael This procedure was performed on Wednesday, June 12, 2024. My impressions and recommendations are as follows: Impressions : - Normal esophagus. - Medium-sized hiatal hernia. - Normal examined duodenum. - No specimens collected. Recommendations : - [facility]. - Clear liquid diet. - Continue present medications. - Colonoscopy in the am My findings are described in the full procedure note, which is enclosed. If I can be of further assistance, please feel free to contact me at . Sincerely, Sahil Tobin, 06/12/2024 4:56:02 PM This report has been signed electronically.
[2024-06-12] MEDS: Electrolyte Solution/Peg's 4000 ML PO (17:44)
[2024-06-12] MEDS: Atorvastatin Calcium 40 MG Tablet PO (21:58)
[2024-06-12] MEDS: Donepezil HCl 5 MG Tablet PO (21:58)
[2024-06-13] VITALS (9 sets, daily range): BP systolic 73–150; BP diastolic 53–90; PULSE 60–84; RESP 16–18; TEMP 36.1–36.6; O2SAT 97–100
[2024-06-13 04:51] LABS: Absolute Lymphocyte Count 2.12 X10^3/uL (0.83-4.51); Absolute Neutrophil Count 3.5 X10^3/uL (2.0-7.7); Basophil# 0.02 X10^3/uL; Basophil% 0.3 % (0-1); Eosinophil# 0.21 X10^3/uL; Eosinophils% 3.1 % (0-5); Hemoglobin 11.5 g/dL (13.0-16.5); Lymphocyte # 2.12 X10^3/ul (0.83-4.51); Lymphocyte % 31.8 % (19-41); Mean Corp Hgb Conc 31.9 g/dL (32-36); Mean Corpuscular Hgb 25.7 pg (27.0-32.0); Mean Corpuscular Volume 80.5 fL (80-94); Mean Platelet Vol. 9.1 fl (6.2-12.0); Monocyte# 0.79 X10^3/uL; Monocyte% 11.8 % (0-10); NRBC Flagged by Analyzer 0 % (0-5); Neutrophil # 3.51 X10^3/uL (2.7-7.7); Neutrophil % 52.7 % (47-70); Platelet Count 346 K/mm3 (150-450); RBC Distribution Width CV 16.7 % (11.6-14.6); RBC Distribution Width SD 48.7 fl (35.1-43.9); Red Blood Count 4.47 M/mm3 (4.6-6.2); White Blood Count 6.7 K/mm3 (4.4-11.0)
[2024-06-13 05:17] LABS: Anion Gap 16 (5-15); BUN 14 mg/dL (4-19); BUN/Creat Ratio 14.1 RATIO (10-20); Calcium,Total 9.5 mg/dL (7.6-11.0); Carbon Dioxide 18.9 mmol/L (21.0-32.0); Chloride 102 mmol/L (98-108); Creatinine, Serum 1.01 mg/dL (0.70-1.20); EST Glomerular Filtration Rate 80 (>60); Estimated Creatinine Clearance 49.19 ml/min (50-250); Glucose 101 mg/dL (70-99); Potassium 3.7 mmol/L (3.3-5.1); Sodium Level 137 mmol/L (133-145)
--- NOTE | 2024-06-13 08:25 | PCM.PN.HOSP ---
Reason for Visit Reason for Visit: Diagnoses Iron deficiency anemia, unspecified (06/10/24) Peripheral vascular disease, unspecified (06/10/24) Subjective Subjective Patient underwent EGD the day prior unremarkable study. Plan is for patient to undergo subsequent evaluation with colonoscopy this a.m. Objective Data Objective Data Vital Signs: Vital Signs Temp Pulse Resp BP Pulse Ox O2 Del Method 98 F 81 18 150/90 H 98 Room Air 06/13/24 04:14 06/13/24 04:14 06/13/24 04:14 06/13/24 04:14 06/13/24 04:14 06/13/24 04:18 Oxygen Delivery Method Room Air Weight: 51.1 kg Body Mass Index (BMI) 16.1 Intake & Output: Intake and Output for Last 24 Hours 06/11/24 06/12/24 06/13/24 23:59 23:59 23:59 Intake Total 1354 / 1354 575.75 / 575.75 3000 / 3000 Output Total 1300 / 1750 1100 / 1100 Balance 54 / -396 -524.25 / -524.25 3000 / 3000 Lab / Micro Data 06/13/24 04:26 06/13/24 04:26 Labs: Laboratory Results - last 24 hr 06/13/24 04:26: WBC 6.7, RBC 4.47 L, Hgb 11.5 L, Hct 36.0 L, MCV 80.5, MCH 25.7 L, MCHC 31.9 L, RDW Std Deviation 48.7 H, RDW Coeff of Liliane 16.7 H, Plt Count 346, MPV 9.1, Immature Gran % (Auto) 0.300, Neut % (Auto) 52.7, Lymph % (Auto) 31.8, [place] % (Auto) 11.8 H, Eos % (Auto) 3.1, Baso % (Auto) 0.3, Absolute Neuts (auto) 3.5, Absolute Lymphs (auto) 2.12, Nucleated RBC % 0, Sodium 137, Potassium 3.7, Chloride 102, Carbon Dioxide 18.9 L, Anion Gap 16 H, BUN 14, Creatinine 1.01, Estim Creat Clear Calc 49.19 L, Est GFR (MDRD) Non-Af 80, BUN/Creatinine Ratio 14.1, Glucose 101 H, Calcium 9.5 Micro: Microbiology 06/10/24 12:44 Stool Stool Occult Blood (MARCIA) - Final Physical Exam Narrative GENERAL: cooperative HEENT: Atraumatic; normocephalic EYES; Anicteric, Normal Conjunctiva NECK; supple, normal thyroid, RESPIRATORY: Diminished to auscultation CARDIOVASCULAR: Regular S1 S2, GI: soft, normoactive bowel sounds, : No Renal angle tenderness; EXTREMITIES: No edema, no clubbing, MUSCULOSKELETAL: no muscle wasting NEURO: Awake; no lateralizing signs. SKIN: No Rash PSYCH; Flat affect Assessment & Plan Assessment/Plan (1) Peripheral arterial disease: (2) Claudication, intermittent: (3) Iron deficiency anemia: QUALIFIERS: Iron deficiency anemia type: unspecified iron deficiency Qualified Code(s): D50.9 - Iron deficiency anemia, unspecified PLAN: Plan Patient is a 68-year-old gentleman admitted with progressive generalized weakness found to be anemic with hemoglobin of 6.7 1. Acute symptomatic anemia ? Patient presented with hemoglobin of 6.7. Iron studies did show severe iron deficiency anemia with iron level of 12 and ferritin of 10. Per patient his last scope was more than 10 years prior. Consult was placed to gastroenterology for endoscopic evaluation. Patient did receive 2 unit PRBC transfusion. Subsequently monitoring H&H with plans to transfuse if hemoglobin falls below 7 or patient is deemed to be symptomatic. Of note patient was taking aspirin as well as ibuprofen both medications held ? 06/12/2024;Patient seen hemoglobin remains stable. Consult was placed to GI for possible endoscopic evaluation prior to any intervention. Patient was subsequently kept n.p.o. overnight and scheduled to undergo EGD this a.m. ? 06/13/2024; patient underwent EGD findings as below - Normal esophagus. - Medium-sized hiatal hernia. - Normal examined duodenum. - No specimens collected. Recommendations : - [facility]. - Clear liquid diet. - Continue present medications. - Colonoscopy in the am ? Colonoscopy results; Impressions : - One 15 mm polyp at the splenic flexure, removed with a hot snare. Resected and retrieved. - A single bleeding colonic angiodysplastic lesion. Treated with a monopolar probe. - Diverticulosis in the recto-sigmoid colon, in the sigmoid colon and in the descending colon. - One 5 mm polyp at the recto-sigmoid colon, removed with a jumbo cold forceps. Resected and retrieved. - The examination was otherwise normal on direct and retroflexion views. Recommendations : - Discharge patient to home. - Resume regular diet. - Continue present medications. - Await pathology results. - Repeat colonoscopy in 5 years for surveillance 2. Peripheral arterial disease ? Lower extremity arterial studies performed on 06/10/2024 did Right BETH 0.52, moderate arterial insufficiency. Doppler/PVR waveforms and segmental pressures reveal aorto-iliac disease. Left BETH 0.72, moderate arterial insufficiency. Doppler/PVR waveforms and segmental pressures reveal aorto-iliac disease. Consult placed to vascular surgery. Patient will need to undergo GI eval for his severe anemia prior to any intervention 3. Essential hypertension ? Patient currently not on any antihypertensive agents. His blood pressure was markedly elevated started on amlodipine as well as hydralazine as needed. Blood pressure greater than 170 4. COPD ? Currently not in exacerbation aerosol treatment as needed 5. Dyslipidemia ?Patient is on statin therapy, continued at home dose 6. Tobacco dependence ? Counseled on cessation, offered nicotine patch for tobacco cravings 7. Chronic hep C ? Plan is for patient to follow-up with primary care physician for subsequent care 8. History of polysubstance dependence Apparently remission 9. Depression with anxiety ? Patient is on sertraline as well as hydroxyzine as needed 10. GERD ? Patient is on omeprazole 11. DVT prophylaxis Avoided the use of chemoprophylaxis given patient severe anemia
--- NOTE | 2024-06-13 08:28 | PRE.ANES_ITS ---
ASA Classification* ASA Classification ASA Classification: 3 and E Assessment & Plan Anesthesia* Anesthesia Assessment Anesthesia Assessment: Discussed sedation and/or anesthesia options, risks, benefits, and alternatives with patient/parents/legal guardian/POA. Questions invited. The patient/parents/legal guardian/POA seems to understand and agrees to proceed with anesthesia plan. Reviewed the physical assessment, medical history, allergy history and patient home medications list prior to surgery/procedure/anesthetic and documented any changes. Performed airway and anesthesia risk assessments. Anesthesia Type Anesthesia Type: MAC Anesthesia Focused Assessment* Temperature: 98 F Pulse Rate: 81 Blood Pressure: 150/90 Respiratory Rate: 18 Pulse Ox: 98 Airway Assessment Mouth opens: >3 cm Mallampati Score: II Focused Labs Anesthesia Preop lab: CBC WBC 6.7 K/mm3 (4.4-11.0) 06/13/24 04:06/13/24 RBC 4.47 M/mm3 (4.6-6.2) L 06/13/24 04:06/13/24 Hgb 11.5 g/dL (13.0-16.5) L 06/13/24 04:26 5 Hct 36.0 % (40-54) L 06/13/24 04:26 06/13/24 Plt Count 346 K/mm3 (150-450) 06/13/24 04:26 06/13/24 CHEMISTRY Potassium 3.7 mmol/L (3.3-5.1) 06/13/24 04:26 06/13/24 Sodium 137 mmol/L (133-145) 06/13/24 04:26 06/13/24 Magnesium 2.4 mg/dL (1.5-2.2) H 06/12/24 03:59 06/12/24 Phosphorus 3.8 mg/dL (2.7-4.5) 06/12/24 03:59 06/12/24 BUN 14 mg/dL (4-19) 06/13/24 04:26 06/13/24 Creatinine 1.01 mg/dL (0.70-1.20) 06/13/24 04:26 06/13/24 Glucose 101 mg/dL (70-99) H 06/13/24 04:26 06/13/24 TSH 3.22 uIU/mL (0.358-3.74) 11/26/22 09:26 COAG PT 13.1 SECONDS (11.7-14.9) 06/10/24 11:32 Pre-Assessment Diagnosis/Proposed Procedure Planned Operative Procedure(s): colonoscopy Anesthesia History Anesthesia History - radio despatcher: Anesthesia History - radio despatcher Hx Hospitalization Yes: 12/201705/19/20 22:24 Any Problems With Anesthesia No 06/11/24 19:07 Cholinesterase deficiency No 06/11/24 19:07 You/Your Family Experience No 06/11/24 19:07 fever (hyperthermia) with Relationship Recent Exposure to Contagious No 06/11/24 19:07 Disease Does patient have nerve No 06/11/24 19:07 stimulator Patient instructed to have device shut off --Does patient have Pacemaker No 06/12/24 05:00 or ICD? When Was Last Pacemaker Check QUESTION #4 FULL TEXT: You/Your Family Experience fever (hyperthermia) with Anesthesia Last Oral Intake Last Oral intake: Last Oral Intake NPO since 00:00 06/12/24 05:00 Meds taken in AM with sips of No 06/12/24 05:00 water? Meds patient instructed to take am of surgery PONV PONV - radio despatcher: PONV - radio despatcher Female HX of Motion Sickness HX of N/V After Surgery Non-Smoker Duration of Surgery greater than 60 minutes Number of Risk Factors PONV Score Height & Weight Height & Weight: Anesthesia: Height & Weight Height 5 ft 10 in 06/12/24 05:00 Weight: 51.1 kg 06/12/24 05:00 Body Mass Index (BMI) 16.1 06/12/24 05:00 Respiratory Assessment Respiratory Assessment - radio despatcher: Respiratory Tract Infection Hx - radio despatcher Hx Respiratory Tract Infection No 06/11/24 19:07 STOP Sleep Apnea STOP Sleep Apnea - radio despatcher: STOP Sleep Apnea - radio despatcher Hx Hypertension No 06/10/24 15:29 Hx Sleep Apnea No 06/12/24 14:20 CPAP No 06/12/24 14:05 BIPAP Do you snore loudly (louder No 06/10/24 15:29 than talking or can be heard Do you often feel tired/ No 06/10/24 15:29 fatigued/ sleepy during daytime? Has anyone observed you stop No 06/10/24 15:29 breathing during sleep? STOP Results Negative 06/12/24 14:05 QUESTION #5 FULL TEXT : Do you snore loudly (louder than talking or can be heard through closed doors)? 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 Specify any problems Hx of Preganancy in last 3 N/A 06/10/24 15:29 Months Nurse Filling Out Transfusion SWIDANIEL 06/10/24 15:29 & Questions: Date: 06/10/24 06/10/24 15:29 Time: 15:30 06/10/24 15:29 Patient unable to answer at this time (ie. confused, unrespo /Reproduction History /Reproductive History - radio despatcher: /Reproductive Hx- radio despatcher Hx Now No 06/11/24 19:07 Gestational Age (in weeks): EDC: Hx Hx Para Hx Section SAB No 06/11/24 19:07 Active Medications Active Medications: Current Medications Generic Name Dose Route Start Last Admin Trade Name Freq PRN Reason Stop Dose Admin Albuterol Sulfate 2.5 mg 06/10/24 15:25 Albuterol 2.5 Mg/3 Ml Vial.Neb. INHALATION Q4H PRN Shortness Of Breath Or Wheezing Amlodipine Besylate 5 mg 06/11/24 10:45 06/12/24 14:48 Amlodipine 5 Mg Tablet PO 5 mg DAILY BEBE Administration Protocol Atorvastatin Calcium 40 mg 06/10/24 22:00 06/12/24 21:58 Atorvastatin Calcium 40 Mg Tablet PO 40 mg QHS BEBE Administration Budesonide 0.5 mg 06/10/24 15:30 06/12/24 20:50 Budesonide Respules 0.5 Mg/2 Ml Ampul.Neb. INHALATION 0.5 mg Q12H.RT BEBE Administration Bupropion HCl 300 mg 06/11/24 10:00 06/12/24 14:47 Bupropion (Xl) 300 Mg Tablet.Xl PO 300 mg DAILY BEBE Administration Donepezil HCl 5 mg 06/10/24 22:00 06/12/24 21:58 Donepezil Hcl 5 Mg Tablet PO 5 mg QHS BEBE Administration Hydralazine HCl 10 mg 06/11/24 10:32 06/12/24 08:58 Hydralazine 20 Mg/Ml Vial IV 10 mg Q4H PRN PRN Administration Hypertensive Emergency Protocol Hydroxyzine Pamoate 25 mg 06/10/24 15:08 06/11/24 09:10 Hydroxyzine Lois 25 Mg Capsule PO 25 mg BID PRN Administration anxiety Sodium Chloride 100 mls @ 15 mls/hr 06/10/24 15:01 IV .Q6H40M PRN Saline Flush Sodium Chloride 100 mls @ 15 mls/hr 06/10/24 15:01 IV .Q6H40M PRN Additional IVPB Infusion Nutritional Formula (Lactose Free) 240 ml 06/11/24 10:20 Ensure Clear 120 Ml Liquid PO DAILY PRN SUPPLEMENT Nutritional Formula (Lactose Free) 120 ml 06/11/24 18:00 06/12/24 21:33 Ensure Plus High Protein 120 Ml Liquid PO Not Given 4X/DAY BEBE Pantoprazole Sodium 40 mg 06/11/24 10:00 06/12/24 14:48 Pantoprazole Sodium 40 Mg Tablet PO 40 mg DAILY BEBE Administration Sertraline HCl 50 mg 06/11/24 10:00 06/12/24 14:48 Sertraline 50 Mg Tablet PO 50 mg DAILY BEBE Administration Sodium Chloride 10 - 40 ml 06/10/24 15:01 06/10/24 21:49 0.9% Saline Lock 10 Ml Syringe IV 10 ml UD PRN Administration SALINE FLUSH PFSH Medical History Hepatitis C Severe protein-calorie malnutrition Substance abuse Smoker Polysubstance abuse Alcohol use disorder Generalized anxiety disorder Major depressive disorder, recurrent severe without psychotic features Dysthymia Emphysema lung Nicotine dependence, cigarettes, uncomplicated Iron deficiency anemia PAD (peripheral artery disease) Basal cell carcinoma (BCC) Hemorrhoid GERD (gastroesophageal reflux disease) Depression Osteoarthritis Chronic back pain Home Medications ?Medication ?Instructions ?Recorded ?Last Taken ?Type bupropion HCl 300 mg 24 hr tablet, 300 mg PO DAILY ANX IETY 11/23/21 06/10/24 History extended release ibuprofen 600 mg tablet (IBU) 600 mg PO Q8H PRN Pain 1 2 Days Ago History ~11/21/21 albuterol sulfate 90 mcg/actuation 2 puff inhalation Q 4H PRN PRN 05/06/23 Unknown Rx aerosol inhaler Shortness Of Breath Or Wheez ing #3 ea food supplemt, lactose-reduced 240 ml PO DAILY PRN SUP PLEMENT 06/13/23 Unknown History (Ensure oral liquid) hydroxyzine HCl 25 mg tablet 25 mg PO BID PRN anxiety 06/13/23 Unknown History aspirin 81 mg tablet,delayed 81 mg PO QDAY 02/28/24 History release (Adult Low Dose Aspirin) sertraline 50 mg tablet (Zoloft) 50 mg PO QDAY 5 06/10/24 History rosuvastatin 20 mg tablet 20 mg PO QDAY #30 tabs 04/1006/09/24 Rx budesonide 1 mg/2 mL suspension 1 mg (2 mL) inhalation BID #120 mL 06/10/24 06/09/24 Rx for nebulization donepezil 5 mg tablet 5 mg PO QHS 06/10/24 5 History ipratropium 0.5 mg-albuterol 3 mg 3 ml inhalation BID SOB &/OR 06/10/24 06/09/24 History (2.5 mg base)/3 mL nebulization WHEEZING soln omeprazole 40 mg capsule,delayed 40 mg PO DAILY 06/10/24 History release Allergy/AdvReac Type Severity Reaction Status Date / Time buspirone (From BuSpar) Allergy Mild shaking, Verified 05/19/24 12:40 restless legs sucralfate (From Carafate) Allergy Other Verified 05/19/24 12:40 venom-honey bee (bee venom Allergy Anaphylaxis Verified 05/19/24 12:40 (honey bee)) Family History Mother Diabetes Heart disease Hypertension Thyroid disorder Ulcer Sister Asthma Heart disease Hypertension Cancer multiple myeloma Surgical History S/P peripheral artery angioplasty with stent placement History of colonoscopy (~2018) History of cataract extraction Hx of local excision of skin lesion Hx of endarterectomy History of cholecystectomy (~2002) Social History household members: friend(s) Smoking Status: Former smoker Tobacco: How many years used: 50 Electronic Cigarette Use: not used second hand exposure: No quit status: considering quitting alcohol intake: former details: Sober since 2015. substance use type: other details: Fentanyl, snorted, does have prior IVDA history. Review of Systems (Anesthesia) ROS Narrative System reviewed and no additional complaints, except as documented.
--- NOTE | 2024-06-13 08:35 | COLBX_PTH ---
PATIENT: LEIGH WALETRS LOC: [facility] U#:[id number] AGE/SX: 68/M ROOM: [facility] RE06/10/[address]: Dr. Rocco Cruz MD : 1955 BED: 1 DIS: 06/13/2024 SPEC #: [id number] RECD: 06/15/24 10:48 STATUS: OSMAN [facility] #: [id number] RACHEL: 06/13/24 08:[address]: Sahil Tobin DEPT: SURGICAL PATHOLOGY RECD BY: Yazan Byers ENTERED: 06/15/24 11:53 SP TYPE: COLON BX OTHR DR: MD Dr. Aguilar Bhakta MD Dr. Nicholas F Kotsonis, MD Rachel Edgar, CONSUMER LOAN OFFICER-C Tissues: A - SPLENIC FLEXURE B - Rectum, NOS Procedures: Surgery Specimen Level IV Comments: @ Ordering doctor for SUIV edited from to @ by JUANA at 06/15/24 1153 @ Submitting doctor edited from to @ by JUANA at 06/15/24 1153 HEADER OPERATION: Colonoscopy with polypectomy PRE-OP DIAGNOSIS: GI bleed TISSUE SUBMITTED: A- Splenic flexure polyp, B- Rectal polyp MICROSCOPIC DIAGNOSIS A. Colon, splenic flexure, polyp, biopsy: * Tubular adenoma. B. Rectum, polyp, biopsy: * Tubular adenoma. MICROSCOPIC DESCRIPTION Slides are reviewed. GROSS DESCRIPTION A. Received in formalin in a container labeled with the patient's name, date of , and splenic flexure polyp are multiple stanley-pink fragments of mucosal tissue measuring 1.0 x 0.8 x 0.3 cm in aggregate. Submitted in toto in A1. B. Received in formalin in a container labeled with the patient's name, date of , and rectal polyp is a 0.3 x 0.3 x 0.3 cm fragment of stanley-pink mucosal tissue. Submitted in toto in B1. [facility] 06-15-2024 CPT:[id number]
--- NOTE | 2024-06-13 09:30 | PCM.POST.ANE ---
Anesthesia: Postop Eval I Current Vital Signs Temperature: 96.9 F Pulse Rate: 68 Blood Pressure: 76/56 Respiratory Rate: 18 Pulse Ox: 97 Assessment Airway patent: Yes Spontaneous unlabored respirations: Yes nausea: No Vomiting: No Anesthesia Complication: No Fluid Hydration Crystalloid volume administer (ml): 1,000 Total IV fluid infused: 1,000 Progress Note Anesthesia document: Postop Eval 1 completed: Yes
--- NOTE | 2024-06-13 09:35 | OP.COLON_ITS ---
Patient Name: Franki Manzo Procedure Date: 06/13/2024 8:23 AM Date of : 1955 Age: 68 Procedure: Colonoscopy Indications: Hematochezia, Iron deficiency anemia, Unexplained iron deficiency anemia Providers: Sahil Tobin DO Medicines: Monitored Anesthesia Care Patient Profile: This is a 68 year old male. Refer to note in patient chart for documentation of history and physical. Last Colonoscopy: date unknown. Unable to locate last colonoscopy report. Complications: No immediate complications. Procedure: Pre-Anesthesia Assessment: - Prior to the procedure, a History and Physical was performed, and patient medications and allergies were reviewed. The patient is competent. The risks and benefits of the procedure and the sedation options and risks were discussed with the patient. All questions were answered and informed consent was obtained. Patient identification and proposed procedure were verified by the physician in the pre-procedure area. Mental Status Examination: alert and oriented. Airway Examination: normal oropharyngeal airway and neck mobility. Respiratory Examination: clear to auscultation. CV Examination: normal. Prophylactic Antibiotics: The patient does not require prophylactic antibiotics. Prior Anticoagulants: The patient has taken no anticoagulant or antiplatelet agents except for NSAID medication. ASA Grade Assessment: II - A patient with mild systemic disease. After reviewing the risks and benefits, the patient was deemed in satisfactory condition to undergo the procedure. The anesthesia plan was to use monitored anesthesia care (MAC). Immediately prior to administration of medications, the patient was re-assessed for adequacy to receive sedatives. The heart rate, respiratory rate, oxygen saturations, blood pressure, adequacy of pulmonary ventilation, and response to care were monitored throughout the procedure. The physical status of the patient was re-assessed after the procedure. After I obtained informed consent, the scope was passed under direct vision. Throughout the procedure, the patient's blood pressure, pulse, and oxygen saturations were monitored continuously. The Colonoscope was introduced through the anus and advanced to the cecum, identified by appendiceal orifice and ileocecal valve. The colonoscopy was performed without difficulty. The patient tolerated the procedure well. The quality of the bowel preparation was adequate. The ileocecal valve, appendiceal orifice, and rectum were photographed. Scope In: 9:03:47 AM Scope Withdrawal Time 0 hours 10 minutes 55 seconds Scope Out: 9:24:18 AM Total Procedure Duration Time 0 hours 20 minutes 31 seconds Findings: The perianal and digital rectal examinations were normal. A 15 mm polyp was found in the splenic flexure. The polyp was sessile. The polyp was removed with a hot snare. Resection and retrieval were complete. Verification of patient identification for the specimen was done. Estimated blood loss was minimal. To prevent bleeding after the polypectomy, one hemostatic clip was successfully placed. Clip jigsawyer: [employer]. There was no bleeding at the end of the procedure. A single small localized angiodysplastic lesion with bleeding was found in the rectum. Coagulation for bleeding prevention using monopolar probe was successful. Estimated blood loss was minimal. Multiple small and large-mouthed diverticula were found in the recto-sigmoid colon, sigmoid colon and descending colon. A 5 mm polyp was found in the recto-sigmoid colon. The polyp was sessile. The polyp was removed with a jumbo cold forceps. Resection and retrieval were complete. Verification of patient identification for the specimen was done. Estimated blood loss was minimal. The exam was otherwise without abnormality on direct and retroflexion views. Impression: - One 15 mm polyp at the splenic flexure, removed with a hot snare. Resected and retrieved. - A single bleeding colonic angiodysplastic lesion. Treated with a monopolar probe. - Diverticulosis in the recto-sigmoid colon, in the sigmoid colon and in the descending colon. - One 5 mm polyp at the recto-sigmoid colon, removed with a jumbo cold forceps. Resected and retrieved. - The examination was otherwise normal on direct and retroflexion views. Recommendation: - Discharge patient to home. - Resume regular diet. - Continue present medications. - Await pathology results. - Repeat colonoscopy in 5 years for surveillance. Procedure Code(s): --- Professional --- 25990, 59, Colonoscopy, flexible; with control of bleeding, any method 17411, Colonoscopy, flexible; with removal of tumor(s), polyp(s), or other lesion(s) by snare technique 76737, 59, Colonoscopy, flexible; with biopsy, single or multiple CPT copyright 2021 [employer]. All rights reserved. The codes documented in this report are preliminary and upon plan manager review may be revised to meet current compliance requirements. Sahil Tobin DO 06/13/2024 9:34:21 AM This report has been signed electronically. Number of Addenda: 0 Note Initiated On: 06/13/2024 8:23 AM
--- NOTE | 2024-06-13 09:35 | OP.CCLET_ITS ---
06/13/2024 Nelda Dobson Re : Colonoscopy procedure for Franki Manzo Dear Ismael This procedure was performed on Thursday, June 13, 2024. My impressions and recommendations are as follows: Impressions : - One 15 mm polyp at the splenic flexure, removed with a hot snare. Resected and retrieved. - A single bleeding colonic angiodysplastic lesion. Treated with a monopolar probe. - Diverticulosis in the recto-sigmoid colon, in the sigmoid colon and in the descending colon. - One 5 mm polyp at the recto-sigmoid colon, removed with a jumbo cold forceps. Resected and retrieved. - The examination was otherwise normal on direct and retroflexion views. Recommendations : - Discharge patient to home. - Resume regular diet. - Continue present medications. - Await pathology results. - Repeat colonoscopy in 5 years for surveillance. My findings are described in the full procedure note, which is enclosed. If I can be of further assistance, please feel free to contact me at . Sincerely, Sahil Tobin, 06/13/2024 9:34:21 AM This report has been signed electronically.
--- NOTE | 2024-06-13 10:24 | PCM.POSTANE2 ---
Anesthesia Postop Eval I Sum Postop Eval Completion status Anesthesia document: Postop Eval 1 completed: Yes Anesthesia Postop Eval I Summary Anesthesia Postop Eval I Summary: Anesthesia Postop Eval I: Assessment Summary Airway patent Yes 06/13/24 09:30 [email or web address] Spontaneous unlabored Yes 06/13/24 09:30 PAPER [email or web address] respirations Mental status Awake 06/12/24 14:11 [email or web address] nausea No 06/13/24 09:30 PAPER [email or web address] Vomiting No 06/13/24 09:30 PAPER [email or web address] Anesthesia Postop Eval I: Fluid Summary Crystalloid volume administer 1,000 06/13/24 09:30 [email or web address] (ml) Colloids volume administered ( ml) Blood Product volume administered (ml) Total IV fluid infused 1,000 06/13/24 09:30 PAPER [email or web address] Anesthesia Postop Eval I: Summary Notes Anesthesia Complication No 06/13/24 09:30 PAPER [email or web address] Anesthesia Complication Comment: Post-operative progress note Anesthesia: Postop Eval II Evaluation Mental status: Awake Pain Level: 0 nausea: No Vomiting: No
--- NOTE | 2024-06-13 10:24 | POSTOPAN2_ITS ---
Anesthesia Postop Eval I Sum Postop Eval Completion status Anesthesia document: Postop Eval 1 completed: Yes Anesthesia Postop Eval I Summary Anesthesia Postop Eval I Summary: Anesthesia Postop Eval I: Assessment Summary Airway patent Yes 06/13/24 09:30 VENDING [email or web address] Spontaneous unlabored Yes 06/13/24 09:30 VENDING MANAGER.[email or web address] respirations Mental status Awake 06/12/24 14:11 VENDING [email or web address] nausea No 06/13/24 09:30 VENDING MANAGER.CSIR Vomiting No 06/13/24 09:30 VENDING [email or web address] Anesthesia Postop Eval I: Fluid Summary Crystalloid volume administer 1,000 06/13/24 09:30 VENDING MANAGER.CSIR (ml) Colloids volume administered ( ml) Blood Product volume administered (ml) Total IV fluid infused 1,000 06/13/24 09:30 VENDING [email or web address] Anesthesia Postop Eval I: Summary Notes Anesthesia Complication No 06/13/24 09:30 VENDING [email or web address] Anesthesia Complication Comment: Post-operative progress note Anesthesia: Postop Eval II Evaluation Mental status: Awake Pain Level: 0 nausea: No Vomiting: No
[2024-06-13] MEDS: Ensure Plus High Protein 120 ML LIQUID PO ×2 (10:33→13:19)
[2024-06-13] MEDS: amLODIPine 5 MG Tablet PO (10:34)
[2024-06-13] MEDS: Sertraline 50 MG Tablet PO (10:34)
[2024-06-13] MEDS: Pantoprazole Sodium 40 MG Tablet PO (10:34)
[2024-06-13] MEDS: buPROPion (XL) 300 MG TABLET.XL PO (10:34)
--- NOTE | 2024-06-13 10:52 | PCM.DC.SUM ---
Providers Date of Admission: 06/10/24 Date of Discharge: 06/13/24 Primary Care Physician: NIMA Dobson Consultations 06/10/24 15:08 Consult: Vascular Surgery Routine Consulting Provider: Aguilar Phan Reason for Consult: Peripheral Claudication EMERGENT Consult: No Notified: Yes Date Notified: 06/10/24 Time Notified: 13:57 Method of Notification: ED Physician Initiated 06/11/24 10:30 Consult: Gastroenterology Routine Consulting Provider: Nadia Gastroenter[facility] Reason for Consult: Severe microcytic anemia EMERGENT Consult: No Notified: Yes Date Notified: 06/11/24 Time Notified: 10:30 Method of Notification: Text Reason For Visit: ANEMIA Diagnosis Discharge Diagnosis (1) Peripheral arterial disease: Status: Acute Code(s): I73.9 - Peripheral vascular disease, unspecified (2) Claudication, intermittent: Status: Acute Code(s): I73.9 - Peripheral vascular disease, unspecified (3) Iron deficiency anemia: Status: Chronic Code(s): D50.9 - Iron deficiency anemia, unspecified Qualifiers: Iron deficiency anemia type: unspecified iron deficiency Qualified Code(s): D50.9 - Iron deficiency anemia, unspecified Plan Patient is a 68-year-old gentleman admitted with progressive generalized weakness found to be anemic with hemoglobin of 6.7 1. Acute symptomatic anemia ? Patient presented with hemoglobin of 6.7. Iron studies did show severe iron deficiency anemia with iron level of 12 and ferritin of 10. Per patient his last scope was more than 10 years prior. Consult was placed to gastroenterology for endoscopic evaluation. Patient did receive 2 unit PRBC transfusion. Subsequently monitoring H&H with plans to transfuse if hemoglobin falls below 7 or patient is deemed to be symptomatic. Of note patient was taking aspirin as well as ibuprofen both medications held ? 06/12/2024;Patient seen hemoglobin remains stable. Consult was placed to GI for possible endoscopic evaluation prior to any intervention. Patient was subsequently kept n.p.o. overnight and scheduled to undergo EGD this a.m. ? 06/13/2024; patient underwent EGD findings as below - Normal esophagus. - Medium-sized hiatal hernia. - Normal examined duodenum. - No specimens collected. Recommendations : - [facility]. - Clear liquid diet. - Continue present medications. - Colonoscopy in the am ? Colonoscopy results; Impressions : - One 15 mm polyp at the splenic flexure, removed with a hot snare. Resected and retrieved. - A single bleeding colonic angiodysplastic lesion. Treated with a monopolar probe. - Diverticulosis in the recto-sigmoid colon, in the sigmoid colon and in the descending colon. - One 5 mm polyp at the recto-sigmoid colon, removed with a jumbo cold forceps. Resected and retrieved. - The examination was otherwise normal on direct and retroflexion views. Recommendations : - Discharge patient to home. - Resume regular diet. - Continue present medications. - Await pathology results. - Repeat colonoscopy in 5 years for surveillance 2. Peripheral arterial disease ? Lower extremity arterial studies performed on 06/10/2024 did Right BETH 0.52, moderate arterial insufficiency. Doppler/PVR waveforms and segmental pressures reveal aorto-iliac disease. Left BETH 0.72, moderate arterial insufficiency. Doppler/PVR waveforms and segmental pressures reveal aorto-iliac disease. Consult placed to vascular surgery. Patient will need to undergo GI eval for his severe anemia prior to any intervention 3. Essential hypertension ? Patient currently not on any antihypertensive agents. His blood pressure was markedly elevated started on amlodipine as well as hydralazine as needed. Blood pressure greater than 170 4. COPD ? Currently not in exacerbation aerosol treatment as needed 5. Dyslipidemia ?Patient is on statin therapy, continued at home dose 6. Tobacco dependence ? Counseled on cessation, offered nicotine patch for tobacco cravings 7. Chronic hep C ? Plan is for patient to follow-up with primary care physician for subsequent care 8. History of polysubstance dependence Apparently remission 9. Depression with anxiety ? Patient is on sertraline as well as hydroxyzine as needed 10. GERD ? Patient is on omeprazole 11. DVT prophylaxis Avoided the use of chemoprophylaxis given patient severe anemia Medications at Discharge Home Medications bupropion HCl 300 mg 24 hr tablet, extended release 300 mg PO DAILY ANXIETY 11/23/21 ibuprofen 600 mg tablet (IBU) 600 mg PO Q8H PRN Pain 11/23/21 albuterol sulfate 90 mcg/actuation aerosol inhaler 2 puff inhalation Q4H PRN PRN Shortness Of Breath Or Wheezing #3 ea 05/06/23 food supplemt, lactose-reduced (Ensure oral liquid) 240 ml PO DAILY PRN SUPPLEMENT 06/13/23 hydroxyzine HCl 25 mg tablet 25 mg PO BID PRN anxiety 06/13/23 aspirin 81 mg tablet,delayed release (Adult Low Dose Aspirin) 81 mg PO QDAY 02/28/24 sertraline 50 mg tablet (Zoloft) 50 mg PO QDAY 02/28/24 rosuvastatin 20 mg tablet 20 mg PO QDAY #30 tabs 04/10/24 budesonide 1 mg/2 mL suspension for nebulization 1 mg (2 mL) inhalation BID #120 mL 06/10/24 donepezil 5 mg tablet 5 mg PO QHS 06/10/24 ipratropium 0.5 mg-albuterol 3 mg (2.5 mg base)/3 mL nebulization soln 3 ml inhalation BID SOB &/OR WHEEZING 06/10/24 omeprazole 40 mg capsule,delayed release 40 mg PO DAILY 06/10/24 amlodipine 5 mg tablet 5 mg PO DAILY 90 days #90 tabs 06/13/24 ferrous sulfate 325 mg (65 mg iron) tablet (Feosol) 325 mg PO DAILY #90 tabs 06/13/24 Hospital Course Summary of Care Provided Minutes Spent on Discharge: 35 Physical Exam Narrative GENERAL: cooperative HEENT: Atraumatic; normocephalic EYES; Anicteric, Normal Conjunctiva NECK; supple, normal thyroid, RESPIRATORY: Diminished to auscultation CARDIOVASCULAR: Regular S1 S2, GI: soft, normoactive bowel sounds, : No Renal angle tenderness; EXTREMITIES: No edema, no clubbing, MUSCULOSKELETAL: no muscle wasting NEURO: Awake; no lateralizing signs. SKIN: No Rash PSYCH; Flat affect Weight / BMI Weight Weight: 51.1 kg Body Mass Index (BMI) 16.1 ABG / Lab / Microbiology Data 06/13/24 04:26 06/13/24 04:26 Laboratory: Laboratory Results - last 24 hr 06/13/24 04:26: WBC 6.7, RBC 4.47 L, Hgb 11.5 L, Hct 36.0 L, MCV 80.5, MCH 25.7 L, MCHC 31.9 L, RDW Std Deviation 48.7 H, RDW Coeff of Liliane 16.7 H, Plt Count 346, MPV 9.1, Immature Gran % (Auto) 0.300, Neut % (Auto) 52.7, Lymph % (Auto) 31.8, Stanley % (Auto) 11.8 H, Eos % (Auto) 3.1, Baso % (Auto) 0.3, Absolute Neuts (auto) 3.5, Absolute Lymphs (auto) 2.12, Nucleated RBC % 0, Sodium 137, Potassium 3.7, Chloride 102, Carbon Dioxide 18.9 L, Anion Gap 16 H, BUN 14, Creatinine 1.01, Estim Creat Clear Calc 49.19 L, Est GFR (MDRD) Non-Af 80, BUN/Creatinine Ratio 14.1, Glucose 101 H, Calcium 9.5 Microbiology: Microbiology 06/10/24 12:44 Stool Stool Occult Blood (MARCIA) - Final D/C Instructions Discharge Diet: No restrictions Discharge Activity: Return to Normal Activity Call your doctor if you observe: Fever of 101 or Higher, Shortness of breath, Fainting spells and Chest pain DC O2, CPAP, BIPAP Needs Home O2 Discharge instructions: No Meaningful Use Info Meaningful Use Meaningful Use Diagnoses (Choose all that apply): None applicable Ischemic Stroke Statin Dosing Therapy Reference: STATIN DOSE THERAPY REFERENCE: * Patients > 75 years receive moderate or high dose statin therapy. * Patients 75 years or YOUNGER should receive HIGH intensity statin dose unless contraindicated. You will be required to document reason for non-treatment if statin daily dose does not meet guidelines. HIGH DOSE STATIN THERAPY DAILY Atorvastatin > than or = to 40 mg Rosuvastatin > than or = to 20 mg Amlodipine + Atorvastatin > than or = to 2.5/40 mg Ezetimibe + Simvastatin 10/80 mg Simvastatin 80mg Discharge Plan Admission Admit Date/Time: 06/10/24 13:56 Attending Provider: Rocco Cruz Primary Care Provider: Claribel Guevara Consulting Providers: Aguilar Phan; Abram Wang Discharge Orders/Prescriptions Prescriptions: New amlodipine 5 mg Tablet 5 mg PO DAILY 90 Days Qty: 90 0RF ferrous sulfate [Feosol] 325 mg (65 mg iron) tablet 325 mg PO DAILY Qty: 90 0RF Continued albuterol sulfate 90 mcg/actuation HFA aerosol inhaler 2 puff INHALATION Q4H PRN PRN (Reason: Shortness Of Breath Or Wheezing) Qty: 3 3RF hydroxyzine HCl 25 mg tablet 25 mg PO BID PRN (Reason: anxiety) aspirin [Adult Low Dose Aspirin] 81 mg tablet,delayed release (DR/EC) 81 mg PO QDAY sertraline [Zoloft] 50 mg tablet 50 mg PO QDAY ibuprofen [IBU] 600 mg tablet 600 mg PO Q8H PRN (Reason: Pain) bupropion HCl 300 mg tablet extended release 24 hr 300 mg PO DAILY Ensure Liquid 240 ml PO DAILY PRN (Reason: SUPPLEMENT) donepezil 5 mg tablet 5 mg PO QHS omeprazole 40 mg capsule,delayed release(DR/EC) 40 mg PO DAILY ipratropium-albuterol 0.5 mg-3 mg(2.5 mg base)/3 mL solution for nebulization 3 ml inhalation BID rosuvastatin 20 mg tablet 20 mg PO QDAY Qty: 30 2RF budesonide 1 mg/2 mL suspension for nebulization 1 mg inhalation BID Qty: 120 6RF Referrals / Follow Up: Aguilar Phan MD [Med Staff - Active Staff] - Within 1 Week Eliel Osborn MD [Med Staff - Active Staff] - Within 1 Month (Iron deficiency Anemia) Sahil Tobin DO [Med Staff - Active Staff] - Within 1 Month Claribel Guevara NP-C [Primary Care Provider] - Within 2 Weeks Disposition Disposition (needs filled in before D/C Order can be placed): Home, Self Care Charges/Coding Visit Charges Inpatient E&M: 12792 Disch Hosp >30min
== END 2024-06-13 13:47 | disposition home or self-care (01) | DRG 378 ==
LOC: ED 10:57 → PCU 14:12
PROVIDERS: Internal Medicine Gastroenterology; Admitting Provider Family Medicine; Emergency Provider Emergency Medicine; PCP Nurse Practitioner Family; Visit Provider Internal Medicine
PROC: 0DJ08ZZ Inspection of Upper Intestinal Tract, Via Natural or Artificial Opening Endoscopic (ICD-10-PCS; CPT 43235; principal; 2024-06-12 11:55)
PROC: 0DJD8ZZ Inspection of Lower Intestinal Tract, Via Natural or Artificial Opening Endoscopic (ICD-10-PCS; CPT 45378; principal; 2024-06-13 08:30)
DX: K55.21 Angiodysplasia of colon with hemorrhage (principal); Z68.1 Body mass index [BMI] 19.9 or less, adult; B18.2 Chronic viral hepatitis C; F03.90 Unspecified dementia, unspecified severity, without behavioral disturbance, psychotic disturbance, mood disturbance, and anxiety; J43.9 Emphysema, unspecified; D50.9 Iron deficiency anemia, unspecified; F34.1 Dysthymic disorder; I10 Essential (primary) hypertension; I70.219 Atherosclerosis of native arteries of extremities with intermittent claudication, unspecified extremity; K63.5 Polyp of colon; E78.5 Hyperlipidemia, unspecified; K21.9 Gastro-esophageal reflux disease without esophagitis; K57.30 Diverticulosis of large intestine without perforation or abscess without bleeding; K44.9 Diaphragmatic hernia without obstruction or gangrene; Z79.51 Long term (current) use of inhaled steroids; Z87.891 Personal history of nicotine dependence; F41.1 Generalized anxiety disorder; Z82.5 Family history of asthma and other chronic lower respiratory diseases; Z82.49 Family history of ischemic heart disease and other diseases of the circulatory system; R63.6 Underweight
CPT/HCPCS: 36415; 80048; 80061; 80076; 82274; 82728; 83540; 83550; 83735; 84100; 85014; 85018; 85025; 85610; 85730; 86850; 86900; 86901; 88305; 93005; 93923; 94640; 99285; 99406; P9016; A4216; J2405; J2916

== ENCOUNTER 2024-06-24 16:27 | Observation (INO) | payer MEDICARE, MEDICAID, SELFPAY ==
[2024-06-09 08:13] VITALS: BMI 16.9
[2024-06-19 14:30] LABS: Hematocrit 30.2 % (40-54); Hemoglobin 9.3 g/dL (13.0-16.5); Mean Corp Hgb Conc 30.8 g/dL (32-36); Mean Corpuscular Hgb 25.8 pg (27.0-32.0); Mean Corpuscular Volume 83.9 fL (80-94); Platelet Count 320 K/mm3 (150-450); RBC Distribution Width CV 18.2 % (11.6-14.6); RBC Distribution Width SD 54.9 fl (35.1-43.9); White Blood Count 7.6 K/mm3 (4.4-11.0)
[2024-06-19 15:22] LABS: Anion Gap 12 (5-15); BUN 21 mg/dL (4-19); BUN/Creat Ratio 25.7 RATIO (10-20); Calcium,Total 9.2 mg/dL (7.6-11.0); Carbon Dioxide 19.6 mmol/L (21.0-32.0); Chloride 106 mmol/L (98-108); Creatinine, Serum 0.81 mg/dL (0.70-1.20); EST Glomerular Filtration Rate 95 (>60); Estimated Creatinine Clearance 64.24 ml/min (50-250); Glucose 117 mg/dL (70-99); Potassium 3.9 mmol/L (3.3-5.1); Sodium Level 138 mmol/L (133-145)
[2024-06-24] VITALS (11 sets, daily range): BP systolic 138–163; BP diastolic 80–99; PULSE 68–83; RESP 13–18; TEMP 36.6–36.8; O2SAT 94–98
[2024-06-24 16:54] LABS: ACT Activated Clotting Time 216 sec (74-137)
[2024-06-24 16:54] LABS: ACT Activated Clotting Time 204 sec (74-137)
[2024-06-24 16:54] LABS: ACT Activated Clotting Time 210 sec (74-137)
--- NOTE | 2024-06-24 17:54 | PCM.OPRPT ---
Operative Report (Standard) Operative Information Date of Procedure: 06/24/24 Pre-Operative Diagnosis: Atherosclerosis with claudication of the left lower extremity and rest pain the right lower extremity with prior bilateral common iliac artery stents and stenosis distal to this prior intervention in the common iliac artery Post-Operative Diagnosis: Same, thrombosis of the prior right common iliac artery stent Surgery/Procedure Performed: Aortogram, pelvic angiogram Intravascular ultrasound aorta, bilateral common iliac arteries, bilateral external arteries Angioplasty and stent of the left common iliac artery, left external iliac artery Pharmacomechanical thrombectomy right common iliac artery stent Angioplasty stent right common iliac artery start up specialist: No Type of Anesthesia: Local and Sedation,Conscious Procedure Start Time: 13:20 Procedure Stop Time: 16:20 Select all DRAINS/GRAFTS/IMPLANTS that apply: Implanted device Implanted device details: Worthington VBX 7 x 39 left common iliac artery EV 3 ever flex 8 x 60 left external iliac artery Worthington VBX 7 x 29 right common iliac artery Estimated Blood Loss: 30 Specimen collected: No Description of surgery: HPI: Patient is a 68-year-old male with prior bilateral common iliac artery stents had recent drop in his ankle-brachial index and a prior CT scan revealed stenosis in the distal common iliac arteries bilaterally beyond his prior stents. He did not initially have an plan for intervention previously however he presented with global weakness and acute anemia on the date of his planned procedure. He was found to have lower GI bleed which was treated endoscopically with satisfactory result. He has had no further bleeding concerns so he presents now for angiogram with possible intervention. Of note he did develop new right leg pain around the same time he presented with his acute blood loss anemia. Description of procedure: Upon obtaining informed consent and verification of correct patient procedure site the patient was taken to the [facility] where he was positioned prepped and draped in usual sterile fashion. Time was performed conscious sedation administered Versed and fentanyl. Skin overlying the right common femoral artery was anesthetized 1% lidocaine and the vessel accessed under ultrasound guidance with a micropuncture needle wire. This was exchanged for micropuncture sheath through which hand-injection iliofemoral angiogram was performed revealing satisfactory positioning with no extravasation. 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 Through the micropuncture sheath a Bentson wire was advanced however we were unable to navigate the area of dissection so the Bentson was then exchanged for a angled Glidewire which did navigate beyond the area of dissection however we had difficulty traversing the area of high-grade stenosis. Ultimately we did get enough wire purchase to exchanged for a short 5 Tunisian sheath. Through this utilizing the glide wire and Kumpe catheter we are able to navigate the ipsilateral common iliac artery veins and the wire and catheter into the abdominal aorta. The wire was withdrawn a hand-injection subtraction angiography was performed which revealed position within the true lumen aorta with no extravasation or dissection. It did show preferential contrast transit into the left iliac system. The Glidewire was then readvanced and the Kumpe catheter exchanged for an Omni Flush catheter. Utilizing this we navigated into the contralateral leg system advancing the wire into the common iliac and traversing the area of stenosis and ultimately advancing into the distal external iliac artery. The Omni Flush catheter then exchanged for a quick cross catheter which was advanced in position in the distal external leg artery. An Amplatz wire was then attempted to be advanced however we had not enough support from the catheter to advance such a stiff wire. The Amplatz was exchanged for a glide advantage wire which did track ultimately advancing into the contralateral superficial femoral artery. The catheter was withdrawn and the short 5 Tunisian sheath exchanged for a 6 Tunisian 40 Balkan sheath which was advanced over the wire and into the proximal aspect of the contralateral common iliac artery. The patient was then heparinized allowed to circulate for 3 minutes with subsequent heparin dosing based on ACT results. From this position subtraction angiography of the contralateral leg system was performed confirming areas of high-grade stenosis of the distal common iliac artery and the proximal external carotid. The quick cross catheter was then advanced over the wire and the glide advantage wire exchanged for an 018 wire. Intravascular Ramos probe was advanced and recorded pullback performed of the left external iliac artery, left common iliac artery. This confirmed position within the true lumen of the stent and revealed greater than 75% stenosis of the distal common iliac artery in the proximal external artery there were 2 discrete lesions. A 7 mm x 40 Casey angio sculpt angioplasty balloon was then advanced to the external iliac artery lesion inflated to nominal for multiple inflations and then withdrawn to the common iliac lesion and again inflated to nominal for multiple inflations and then withdrawn. Repeat angiography confirmed satisfactory lesion response with no extravasation or dissection. An EV 3 ever flex 8 x 60 self-expanding stent was then advanced to the external iliac artery lesion and deployed. This was then postdilated with a 7 mm by 2 Virgie angioplasty balloon. Repeat angiography revealed satisfactory response with no extravasation or dissection and no residual stenosis. Next a Worthington VBX 7 x 39 balloon expandable covered stent was advanced to the common iliac artery lesion with overlap into the pre-existing common iliac artery stent. This was then inflated to nominal deploying the stent in position and the balloon deflated withdrawn. This was then postdilated at its proximal segment with a 8 x 2 Bard conquest balloon inflated to nominal and then deflated withdrawn. Completion angiography revealed satisfactory response with no extravasation or dissection and no residual stenosis. There is now brisk contrast transit across the common iliac and external neck artery. The sheath was then withdrawn back into the ipsilateral external iliac artery and intravascular ultrasound probe advanced over the wire and recorded pullback performed of the ipsilateral common iliac and external iliac artery. This revealed 2 or surprised that the common iliac artery stent was fully occluded with appear to be acute and subacute thrombus in the R position was in the true lumen of the stent. The intravascular ultrasound probe was then withdrawn and the Kumpe cath advanced over the wire and directed into the abdominal aorta. A [email or web address] AngioJet percutaneous pharmacomechanical thrombectomy device was then brought in field prep for manufactures instructions. This was then engaged for 100 seconds in aspiration mode through the common iliac artery. Repeat angiography revealed significant improvement in the flow lumen however there was still significant acute appearing thrombus within the entirety of the stent. The device was then utilized in power pulse mode where 30 cc saline with tPA was infused. The concentration was 10 mg per 50 cc for an approximate infusion of 7 mg of tPA. This was allowed to dwell for 20 minutes after which the device was again engaged in aspiration mode across the common iliac artery stent. Repeat angiography revealed substantial improvement with only some minimal residual thrombus in the superior aspect of the stent but with significantly improved flow lumen at this location. The entirety of the distal stent and makah vessel thrombus had resolved. Intravascular ultrasound probe was advanced over portal pullback performed of the aorta, right common iliac artery, right external carotid. This confirmed no residual thrombus in the distal aspect of the stent or the makah vessel. There was a fixed stenosis of the distal common iliac artery so a Worthington Viabahn VBX 7 x 29 balloon was advanced and positioned centered on the lesion and inflated deploying the stent. This was then postdilated the superior aspect with a 8 mm x 2 Bard conquest balloon. Repeat angiography revealed satisfactory resolution of the stenosis with now brisk contrast transit and continued visualization of the nonflow limiting thrombus in the superior aspect of the stent. Wires and catheters were withdrawn and the long 6 Tunisian sheath exchanged for a short 6 Tunisian sheath. A Mynx closure device was then deployed however this did not provide adequate hemostasis and manual pressure was held and heparin reversed with protamine. Ultimately there is satisfactory stasis after prolonged manual pressure and the patient was taken to the PCU for observation overnight. Surgical Findings: See above Complications Complications: No
[2024-06-24] MEDS: HEPARIN/D5w 25,000 UNITS 25,000 UNITS/250 ML IV.SOLN. 3 UNITS CONT INF (18:41)
[2024-06-24] MEDS: 0.45% Normal Saline 1,000 ML 75 ML IV (18:41)
[2024-06-24] MEDS: Atorvastatin Calcium 40 MG Tablet PO (23:35)
[2024-06-24] MEDS: Acetaminophen 500 MG Tablet 1000 MG PO (23:35)
[2024-06-25] VITALS: BP 159/95; PULSE 68; RESP 16; TEMP 36.6; O2SAT 97
[2024-06-25] MEDS: guaiFENesin 10 ML UDC (200MG/10ML) 20 ML PO (00:11)
[2024-06-25 02:27] VITALS: BP 157/95; PULSE 69; RESP 16; TEMP 36.6; O2SAT 98
[2024-06-25 05:50] LABS: Absolute Lymphocyte Count 1.43 X10^3/uL (0.83-4.51); Absolute Neutrophil Count 8.2 X10^3/uL (2.0-7.7); Basophil# 0.03 X10^3/uL; Basophil% 0.3 % (0-1); Eosinophil# 0.27 X10^3/uL; Eosinophils% 2.5 % (0-5); Hematocrit 29.5 % (40-54); Hemoglobin 9.5 g/dL (13.0-16.5); Lymphocyte # 1.43 X10^3/ul (0.83-4.51); Lymphocyte % 13.3 % (19-41); Mean Corp Hgb Conc 32.2 g/dL (32-36); Mean Corpuscular Hgb 26.5 pg (27.0-32.0); Mean Corpuscular Volume 82.2 fL (80-94); Mean Platelet Vol. 9.2 fl (6.2-12.0); Monocyte# 0.75 X10^3/uL; NRBC Flagged by Analyzer 0 % (0-5); Neutrophil # 8.21 X10^3/uL (2.7-7.7); Neutrophil % 76.2 % (47-70); Platelet Count 449 K/mm3 (150-450); RBC Distribution Width CV 19.1 % (11.6-14.6); RBC Distribution Width SD 56.4 fl (35.1-43.9); Red Blood Count 3.59 M/mm3 (4.6-6.2); White Blood Count 10.8 K/mm3 (4.4-11.0)
[2024-06-25 06:00] VITALS: BP 158/86; PULSE 70; RESP 16; TEMP 36.6; O2SAT 97
[2024-06-25] MEDS: Acetaminophen 500 MG Tablet 1000 MG PO (06:16)
[2024-06-25 06:20] LABS: Anion Gap 12 (5-15); BUN 17 mg/dL (4-19); BUN/Creat Ratio 20.3 RATIO (10-20); Calcium,Total 9.2 mg/dL (7.6-11.0); Carbon Dioxide 20.7 mmol/L (21.0-32.0); Chloride 102 mmol/L (98-108); Creatinine, Serum 0.83 mg/dL (0.70-1.20); EST Glomerular Filtration Rate 94 (>60); Glucose 110 mg/dL (70-99); Potassium 3.9 mmol/L (3.3-5.1); Sodium Level 135 mmol/L (133-145)
[2024-06-25] MEDS: Ipratropium/Albuterol Sulfate 3 ML AMPUL.NEB INHALATION (07:50)
[2024-06-25] MEDS: Budesonide Respules 0.5 MG/2 ML AMPUL.NEB. INHALATION (07:50)
[2024-06-25 07:56] VITALS: BP 127/74; PULSE 77; RESP 15; TEMP 36.7; O2SAT 97
[2024-06-25 07:59] VITALS: PULSE 80; RESP 18; O2SAT 98
[2024-06-25] MEDS: Sertraline 50 MG Tablet PO (08:01)
[2024-06-25] MEDS: buPROPion (XL) 300 MG TABLET.XL PO (08:04)
[2024-06-25] MEDS: amLODIPine 5 MG Tablet PO (08:04)
[2024-06-25] MEDS: Pantoprazole Sodium 40 MG Tablet PO (08:04)
[2024-06-25] MEDS: Aspirin E.C. 81 MG Tablet PO (08:04)
--- NOTE | 2024-06-25 08:20 | PCM.DC.SUM ---
Providers Date of Admission: 06/24/24 Primary Care Physician: TAWANDA DobsonC Reason For Visit: right lower Peripheral vascular disease, unspecifi Medications at Discharge Home Medications bupropion HCl 300 mg 24 hr tablet, extended release 300 mg PO DAILY ANXIETY 11/23/21 albuterol sulfate 90 mcg/actuation aerosol inhaler 2 puff inhalation Q4H PRN PRN Shortness Of Breath Or Wheezing #3 ea 05/06/23 food supplemt, lactose-reduced (Ensure oral liquid) 240 ml PO DAILY PRN SUPPLEMENT 06/13/23 hydroxyzine HCl 25 mg tablet 25 mg PO BID PRN anxiety 06/13/23 aspirin 81 mg tablet,delayed release (Adult Low Dose Aspirin) 81 mg PO QDAY heart health 02/28/24 sertraline 50 mg tablet (Zoloft) 50 mg PO QDAY mental health 02/28/24 rosuvastatin 20 mg tablet 20 mg PO QDAY cholesterol #30 tabs 04/10/24 budesonide 1 mg/2 mL suspension for nebulization 1 mg (2 mL) inhalation BID breathing #120 mL 06/10/24 donepezil 5 mg tablet 5 mg PO QHS memory 06/10/24 ipratropium 0.5 mg-albuterol 3 mg (2.5 mg base)/3 mL nebulization soln 3 ml inhalation BID SOB &/OR WHEEZING 06/10/24 omeprazole 40 mg capsule,delayed release 40 mg PO DAILY reflux 06/10/24 amlodipine 5 mg tablet 5 mg PO DAILY 90 days #90 tabs 06/13/24 ferrous sulfate 325 mg (65 mg iron) tablet (Feosol) 325 mg PO DAILY #90 tabs 06/13/24 acetaminophen 500 mg tablet 1,000 mg (2 x 500 mg) PO Q8 7 days #42 tabs 06/25/24 rivaroxaban 20 mg tablet (Xarelto) 20 mg PO DAILY #30 tabs 06/25/24 Hospital Course Summary of Care Provided Hospital Course: Mr. Franki Manzo is 68 y/o male who underwent planned angiogram with angioplasty and stent of the left common iliac artery, left external iliac artery, pharmacomechanical thrombectomy right common iliac artery stent, and angioplasty stent right common iliac artery. The procedure went well but he was admitted under observation to ensure hemostasis at the access site. His Hgb was stable this morning with heparin drip overnight. There is no bleeding/hematoma at the access site, he reports expected tenderness here. He has now palpable pedal pulses which is improved from prior to intervention. He is stable for discharge to home today. Will be discharging on Xarelto 20mg daily x 3 months and continue [id number] daily. Physical Exam Const oriented x3 and no apparent distress Resp normal respiratory effort Cardio regular rate and regular rhythm Extremity Extremity Narrative: Bilateral pedal pulses palpable R groin puncture site without bleeding or apparent hematoma, dressing C/D/I Skin no rashes or lesions noted Weight / BMI Weight Weight: 118 lb Body Mass Index (BMI) 16.9 ABG / Lab / Microbiology Data 06/25/24 05:23 06/25/24 05:23 Laboratory: Laboratory Results - last 24 hr 06/24/24 13:13: Activated Clotting Time 216 H 06/24/24 13:48: Activated Clotting Time 210 H 06/24/24 15:06: Activated Clotting Time 204 H 06/25/24 05:23: WBC 10.8, RBC 3.59 L, Hgb 9.5 L, Hct 29.5 L, MCV 82.2, MCH 26.5 L, MCHC 32.2, RDW Std Deviation 56.4 H, RDW Coeff of Liliane 19.1 H, Plt Count 449, MPV 9.2, Immature Gran % (Auto) 0.700, Neut % (Auto) 76.2 H, Lymph % (Auto) 13.3 L, [place] % (Auto) 7.0, Eos % (Auto) 2.5, Baso % (Auto) 0.3, Absolute Neuts (auto) 8.2 H, Absolute Lymphs (auto) 1.43, Nucleated RBC % 0, Sodium 135, Potassium 3.9, Chloride 102, Carbon Dioxide 20.7 L, Anion Gap 12, BUN 17, Creatinine 0.83, Estim Creat Clear Calc 62.70, Est GFR (MDRD) Non-Af 94, BUN/Creatinine Ratio 20.3 H, Glucose 110 H, Calcium 9.2 D/C Instructions Discharge Diet: No restrictions May shower in (days): 1 Weight Bearing Status: Weight bearing as tolerated Additional Activity Instructions: Do not lift greater than 20 pounds for 3 weeks Call your doctor if your incision/area has: Sudden Increased Bleeding and Foul Smelling Discharge Call your doctor if you observe: Fever of 101 or Higher and Uncontrolled pain Remove Dressing in: 1 day DC O2, CPAP, BIPAP Needs Home O2 Discharge instructions: No Please Follow Up With: Geeta Mckenzie PA When: 07/07/2024 Meaningful Use Info Meaningful Use Meaningful Use Diagnoses (Choose all that apply): None applicable Ischemic Stroke Statin Dosing Therapy Reference: STATIN DOSE THERAPY REFERENCE: * Patients > 75 years receive moderate or high dose statin therapy. * Patients 75 years or YOUNGER should receive HIGH intensity statin dose unless contraindicated. You will be required to document reason for non-treatment if statin daily dose does not meet guidelines. HIGH DOSE STATIN THERAPY DAILY Atorvastatin > than or = to 40 mg Rosuvastatin > than or = to 20 mg Amlodipine + Atorvastatin > than or = to 2.5/40 mg Ezetimibe + Simvastatin 10/80 mg Simvastatin 80mg Discharge Plan Admission Admit Date/Time: 06/24/24 16:27 Attending Provider: Aguilar Phan Primary Care Provider: Claribel Guevara Discharge Orders/Prescriptions Prescriptions: New acetaminophen 500 mg Tablet 1,000 mg PO Q8 7 Days Qty: 42 0RF Xarelto 20 mg tablet 20 mg PO DAILY Qty: 30 2RF Rx Instructions: must administer with evening meal Continued albuterol sulfate 90 mcg/actuation HFA aerosol inhaler 2 puff INHALATION Q4H PRN PRN (Reason: Shortness Of Breath Or Wheezing) Qty: 3 3RF hydroxyzine HCl 25 mg tablet 25 mg PO BID PRN (Reason: anxiety) aspirin [Adult Low Dose Aspirin] 81 mg tablet,delayed release (DR/EC) 81 mg PO QDAY sertraline [Zoloft] 50 mg tablet 50 mg PO QDAY bupropion HCl 300 mg tablet extended release 24 hr 300 mg PO DAILY Ensure Liquid 240 ml PO DAILY PRN (Reason: SUPPLEMENT) donepezil 5 mg tablet 5 mg PO QHS omeprazole 40 mg capsule,delayed release(DR/EC) 40 mg PO DAILY ipratropium-albuterol 0.5 mg-3 mg(2.5 mg base)/3 mL solution for nebulization 3 ml inhalation BID amlodipine 5 mg Tablet 5 mg PO DAILY 90 Days Qty: 90 0RF ferrous sulfate [Feosol] 325 mg (65 mg iron) tablet 325 mg PO DAILY Qty: 90 0RF rosuvastatin 20 mg tablet 20 mg PO QDAY Qty: 30 2RF budesonide 1 mg/2 mL suspension for nebulization 1 mg inhalation BID Qty: 120 6RF Discontinued ibuprofen [IBU] 600 mg tablet 600 mg PO Q8H PRN (Reason: Pain) Referrals / Follow Up: Claribel Guevara, [employer] [Primary Care Provider] - Disposition Disposition (needs filled in before D/C Order can be placed): Home, Self Care Charges/Coding Visit Charges Inpatient E&M: 57910 Disch Hosp
[2024-06-25] MEDS: Rivaroxaban 20 MG Tablet PO (09:39)
--- NOTE | 2024-06-25 10:37 | CASEMGMT ---
Patient has order for discharge. Patient is discharging on MARTHA Fenton CM called Dejan, $0 copay. RN CM in to discuss dicharge needs with patient, updated regarding $0 copay. Patient denies needs or help at discharge. Patient denied further questions or concerns.
== END 2024-06-25 11:43 | disposition home or self-care (01) ==
LOC: PCU 06-25 07:17
PROVIDERS: Admitting Provider Surgery Trauma Surgery; PCP Nurse Practitioner Family; Referring Provider Surgery Trauma Surgery; Visit Provider Surgery Trauma Surgery
DX: T82.858A Stenosis of other vascular prosthetic devices, implants and grafts, initial encounter (principal); I70.223 Atherosclerosis of native arteries of extremities with rest pain, bilateral legs; J43.9 Emphysema, unspecified; I70.212 Atherosclerosis of native arteries of extremities with intermittent claudication, left leg; D50.9 Iron deficiency anemia, unspecified; Z86.19 Personal history of other infectious and parasitic diseases; K21.9 Gastro-esophageal reflux disease without esophagitis; Z87.891 Personal history of nicotine dependence; E43 Unspecified severe protein-calorie malnutrition; Z68.1 Body mass index [BMI] 19.9 or less, adult; R53.1 Weakness; I77.72 Dissection of iliac artery; Y71.2 Prosthetic and other implants, materials and accessory cardiovascular devices associated with adverse incidents; F32.9 Major depressive disorder, single episode, unspecified; Z79.899 Other long term (current) drug therapy; Z79.82 Long term (current) use of aspirin; F41.1 Generalized anxiety disorder
CPT/HCPCS: 36200; 36415; 37184; 37211; 37221; 37223; 37252; 37253; 75625; 76937; 80048; 85025; 85027; 85347; 94640; 96365; 96366; 99152; 99153; 99252; C1725; C1753; C1760; C1769; C1874; C1894; J3101; Q9967; C1757; C1876; C1887; G0463

== ENCOUNTER 2024-07-07 17:42 | Inpatient (IN) | payer MEDICARE, MEDICAID, SELFPAY ==
[2024-07-07] VITALS (10 sets, daily range): BP systolic 96–134; BP diastolic 61–71; PULSE 76–99; RESP 12–20; TEMP 36.1–37.1; O2SAT 95–100; BMI 17.2; BMI 16.9
[2024-07-07 18:13] LABS: Absolute Lymphocyte Count 1.82 X10^3/uL (0.83-4.51); Absolute Neutrophil Count 5.4 X10^3/uL (2.0-7.7); Basophil# 0.01 X10^3/uL; Basophil% 0.1 % (0-1); Eosinophil# 0.27 X10^3/uL; Eosinophils% 3.3 % (0-5); Hematocrit 18.3 % (40-54); Lymphocyte # 1.82 X10^3/ul (0.83-4.51); Lymphocyte % 22.1 % (19-41); Mean Corpuscular Hgb 27.9 pg (27.0-32.0); Mean Corpuscular Volume 96.3 fL (80-94); Mean Platelet Vol. 8.9 fl (6.2-12.0); Monocyte# 0.66 X10^3/uL; NRBC Flagged by Analyzer 0.2 % (0-5); Neutrophil # 5.41 X10^3/uL (2.7-7.7); Neutrophil % 65.9 % (47-70); POSITIVE COUNT YES; POSITIVE MORPHOLOGY YES; Platelet Count 328 K/mm3 (150-450); RBC Distribution Width CV 25.7 % (11.6-14.6); RBC Distribution Width SD 87.4 fl (35.1-43.9); White Blood Count 8.2 K/mm3 (4.4-11.0)
[2024-07-07 18:19] LABS: Differential Indicated SCAN CRITERIA MET; Hemoglobin 5.3 g/dL (13.0-16.5)
[2024-07-07 18:31] LABS: Anion Gap 9 (5-15); BUN 21 mg/dL (4-19); BUN/Creat Ratio 20.9 RATIO (10-20); Calcium,Total 8.8 mg/dL (7.6-11.0); Chloride 109 mmol/L (98-108); Creatinine, Serum 1.01 mg/dL (0.70-1.20); EST Glomerular Filtration Rate 80 (>60); Estimated Creatinine Clearance 52.22 ml/min (50-250); Glucose 94 mg/dL (70-99); Potassium 4.1 mmol/L (3.3-5.1); Sodium Level 139 mmol/L (133-145)
[2024-07-07 18:41] LABS: International Normalized Ratio 1.1; Prothrombin Time (Protime)PT. 14.3 SECONDS (11.7-14.9)
[2024-07-07 18:42] LABS: Partial Thromboplast Time 32.8 Seconds (24.1-36.2)
[2024-07-07 19:02] LABS: Platelet Estimate A (ADEQ)
--- NOTE | 2024-07-07 19:02 | ED.RN ---
PT RECENTLY ADMITTED WITH LOW HBG, HAD 2 PINTS OF BLOOD, IRON INFUSION, AND UPPER AND LOWER GI SCOPE DONE. ALL HERE AT [facility]. PT FEELING VERY WEAK, DENIES ANY PAIN OR SOB.
[2024-07-07 19:03] LABS: Acanthocytes 1+; Anisocytosis 3+; Ovalocyte 1+; Polychromasia 1+; Tear Drop Cell 1+
[2024-07-07 20:15] LABS: Iron 63 ug/dL (65-175); Iron Binding Capacity,Total 288 ug/dL (250-450); Iron Binding Capacity,Unsat 225 ug/dL (228-428)
--- NOTE | 2024-07-07 20:27 | CT_ITS ---
PROCEDURE: CTA ABD/PELVIS W/WO CONTRAST 07/07/2024 REASON FOR EXAM: GI BLEED TECHNIQUE: CTA imaging of the abdomen and pelvis with intravenous contrast. Multiplanar and multisequence images were obtained. 3D post processing was performed CONTRAST: Isovue 370 VOLUME: 100 mL Not Provided Gauge IV One or more dose reduction techniques were used (e.g., Automated exposure control, adjustment of the mA and/or kV according to patient size, use of iterative reconstruction technique). RADIATION DOSE SUMMARY: CTDlvol: 35 mGy DLP: 344 mGycm COMPARISON: None FINDINGS: Aorta: Moderate mixed calcified and soft plaque. No abdominal aortic aneurysm. Iliac Arteries: Atherosclerotic calcification with evidence of stents. Celiac: Normal. SMA: Normal. JASSI : Normal. Right Renal: Mild mixed calcified and soft plaque identified. Left Renal: Mild mixed calcified and soft plaque identified. Other Findings: Bibasilar dependent atelectasis. The liver, spleen, pancreas, adrenals and kidneys are grossly unremarkable. Subtle circumferential wall thickening of the urinary bladder. Status post cholecystectomy. Mild stool burden within the large bowel. No inflammatory changes of the bowel loops. Evaluation for GI bleed is limited due to lack of noncontrast and portal venous phase. There are multilevel degenerative changes at the spine. CT/CTA Abd/Pelvis W/WO Contrast IMPRESSION: [id number] atherosclerotic calcification of the abdominal aorta and branc hes. No aneurysm or dissection is demonstrated. Evaluation for GI bleed is limited given lack of noncontrast and portal venous phase. No gross GI bleed is demonstrated. If there is high clinical suspicion, nuclear bleeding scan may be obtained for fur ther characterization. Subtle circumferential wall thickening of the urinary bladder, please correlate with urinalysis. Reading [facility]
[2024-07-07 20:36] LABS: AST(SGOT) 24 U/L (<=37); Alanine Aminotransfer ALT/SGPT 22 U/L (<=46); Albumin, Serum 3.9 g/dL (3.4-4.8); Alkaline Phosphatase 66 U/L (40-129); Bilirubin, Direct < 0.08 mg/dL (0.00-0.30); Globulin 2.2 g/dL (2.2-4.2); Protein, Total 6.1 g/dL (5.9-8.4); Total Bilirubin < 0.15 mg/dL (0.00-1.30)
--- NOTE | 2024-07-07 20:46 | EDS_ITS ---
HPI History of Present Illness Chief Complaint: Abn Labs Narrative Narrative: Patient is a 68-year-old male with a past medical history of hepatitis C, polysubstance abuse, alcohol use disorder, GERD, iron deficiency anemia, peripheral arterial disease status post stents who presents to the emergency department with a chief complaint of low hemoglobin. Patient states that he had blood work obtained and he was sent in by his primary care physician. Patient states that he recently both had a upper and lower scope and they did not find anything that is the major cause for the bleeding. Patient states that he will occasionally feel lightheaded if he is standing for a long period of time otherwise he feels fine. [facility] Medical History ABLA (acute blood loss anemia) Opioid dependence Hematest positive stools Skin cancer, basal cell Hepatitis C Severe protein-calorie malnutrition Substance abuse Smoker Polysubstance abuse Alcohol use disorder Generalized anxiety disorder Major depressive disorder, recurrent severe without psychotic features Dysthymia Emphysema lung Nicotine dependence, cigarettes, uncomplicated Iron deficiency anemia PAD (peripheral artery disease) Basal cell carcinoma (BCC) Hemorrhoid GERD (gastroesophageal reflux disease) Depression Osteoarthritis Chronic back pain Home Medications ?Medication ?Instructions ?Recorded ?Last Taken ?Type bupropion HCl 300 mg 24 hr tablet, 300 mg PO DAILY ANX IETY 11/23/21 06/24/24 History extended release albuterol sulfate 90 mcg/actuation 2 puff inhalation Q 4H PRN PRN 05/06/23 Unknown Rx aerosol inhaler Shortness Of Breath Or Wheez ing #3 ea food supplemt, lactose-reduced 240 ml PO DAILY PRN SUP PLEMENT 06/13/23 Unknown History (Ensure oral liquid) hydroxyzine HCl 25 mg tablet 25 mg PO BID PRN anxiety 06/13/23 Unknown History aspirin 81 mg tablet,delayed 81 mg PO QDAY heart healt h 02/28/24 06/09/24 History release (Adult Low Dose Aspirin) sertraline 50 mg tablet (Zoloft) 50 mg PO QDAY mental health 02/28/24 06/24/24 History rosuvastatin 20 mg tablet 20 mg PO QDAY cholesterol #3 0 tabs 04/10/24 06/24/24 Rx budesonide 1 mg/2 mL suspension 1 mg (2 mL) inhalation BID 06/10/24 06/24/24 Rx for nebulization breathing #120 mL donepezil 5 mg tablet 5 mg PO QHS memory 06/10/24 06/09/24 History ipratropium 0.5 mg-albuterol 3 mg 3 ml inhalation BID SOB &/OR 06/10/24 06/24/24 History (2.5 mg base)/3 mL nebulization WHEEZING soln omeprazole 40 mg capsule,delayed 40 mg PO DAILY reflux 06/10/24 06/24/24 History release amlodipine 5 mg tablet 5 mg PO DAILY 90 days #90 ta bs 06/13/24 06/24/24 Rx ferrous sulfate 325 mg (65 mg 325 mg PO DAILY #90 tabs 06/13/24 Unknown Rx iron) tablet (Feosol) acetaminophen 500 mg tablet 1,000 mg (2 x 500 mg) PO Q 8 7 days 06/25/24 Unknown Rx #42 tabs rivaroxaban 20 mg tablet (Xarelto) 20 mg PO DAILY #30 tabs 06/25/24 Unknown Rx Allergy/AdvReac Type Severity Reaction Status Date / Time buspirone (From BuSpar) Allergy Mild shaking, Verified 07/07/24 19:03 restless legs sucralfate (From Carafate) Allergy Other Verified 07/07/24 19:03 venom-honey bee (bee venom Allergy Anaphylaxis Verified 07/07/24 19:03 (honey bee)) Family History Mother Diabetes Heart disease Hypertension Thyroid disorder Ulcer Sister Asthma Heart disease Hypertension Cancer multiple myeloma Surgical History S/P peripheral artery angioplasty with stent placement History of colonoscopy (~2018) History of cataract extraction Hx of local excision of skin lesion Hx of endarterectomy History of cholecystectomy (~2002) Social History household members: friend(s) Smoking Status: Former smoker Tobacco: How many years used: 50 Electronic Cigarette Use: not used second hand exposure: No quit status: considering quitting alcohol intake: former details: Sober since 2016. substance use type: other details: Fentanyl, snorted, does have prior IVDA history. ROS ROS ED ROS Narrative Constitutional: Denies fevers, chills, headaches Eyes: Denies change in vision double vision blurry vision Cardiovascular: Denies chest pain or palpitations Respiratory: Denies shortness of breath, cough Abdomen: Denies abdominal pain nausea vomit diarrhea denies dark tarry stools or blood in the stool : Denies any urinary symptoms Neurological: Denies numbness, weakness, tingling Musculoskeletal: Denies back pain Skin: Denies any rashes or lesions EXAM Physical Exam Narrative Exam Narrative: General: Patient lying in bed rest comfortably did not appear to be in acute distress Head: Atraumatic, normocephalic Eyes: PERRL bilaterally, EOMI bilateral, no conjunctival injection noted Neck: Soft, supple and trachea midline Cardiovascular: Regular rate and rhythm Respiratory: Clear to auscultation bilaterally Abdomen: Soft, nondistended, no tenderness palpation Musculoskeletal: No flank ecchymosis noted Extremities: +5/5 strength noted in the bilateral upper and lower extremities, radial pulse +2/4 in the bilateral extremities Neurological: Patient following commands knew that he was at [facility] year is 2024 Skin: Warm, dry, tact no rashes or lesions noted Const Vital Signs: 07/07/24 17:44 07/07/24 19:00 07/07/24 19:25 Temperature 97 F L Temperature Source Temporal Pulse Rate 99 76 Respiratory Rate 18 20 H Respiratory Effort Normal Respiratory Pattern Normal Blood Pressure 105/68 96/61 Blood Pressure Mean 80 72 Blood Pressure Source Blood Pressure Location Pulse Ox 100 97 Oxygen Delivery Method Room Air Room Air 07/07/24 20:00 07/07/24 21:00 07/07/24 21:19 Temperature 98.4 F Temperature Source Oral Pulse Rate 78 78 79 Respiratory Rate 16 20 H Respiratory Effort Respiratory Pattern Blood Pressure 113/70 114/61 114/61 Blood Pressure Mean 84 78 78 Blood Pressure Source Monitor Blood Pressure Location Left Arm Pulse Ox 97 97 97 Oxygen Delivery Method Room Air Room Air 07/07/24 21:35 07/07/24 22:00 07/07/24 22:19 Temperature 97.9 F 97.6 F L Temperature Source Oral Pulse Rate 80 79 79 Respiratory Rate 18 12 14 Respiratory Effort Respiratory Pattern Blood Pressure 117/62 112/61 117/69 Blood Pressure Mean 80 78 85 Blood Pressure Source Monitor Blood Pressure Location Left Arm Pulse Ox 99 95 95 Oxygen Delivery Method Room Air MDM MDM MDM Narrative Medical decision making narrative: Patient is a 68-year-old male who presents to the emergency department with a chief complaint of anemia after a blood drawl obtained in the outpatient setting. On the differential diagnose includes not limited to upper GI bleed, retroperitoneal bleed, iron deficiency anemia. Once workup is obtained and reviewed he will be reevaluated. Rectal exam was performed and was not grossly melanotic will be sent for testing Patient CBC reviewed and showed a white blood, 8.2 patient was noted to be anemic with a hemoglobin of 5.3, plate count normal at 328. Patient INR 1.1, PT 14.3, sodium normal 139, potassium of 4.1, creatinine was normal at 1.01. Patient iron was noted be low at 63, TIBC was 288, AST and ALT normal at 2422 respectively. Patient CTA abdomen pelvis showed mild to moderate atherosclerotic calcification of the abdominal aorta and branches no aneurysm or dissection is that demonstrated evaluation for GI bleed is limited given the lack of noncontrast and portal venous phase no gross GI bleed demonstrated Patient was given Protonix 40 mg IV Will discuss case with hospitalist for his anemia with suspicion for a GI bleed given his stool was occult positive. Patient was typed and screened for 3 units. Discussed case with hospitalist Dr. Wang who accept patient for admission. Updated the patient is agreeable to plan all questions answered. Lab Data Labs: Laboratory Results - last 24 hr 07/07/24 18:00 WBC 8.2 RBC 1.90 L Hgb 5.3 L* Hct 18.3 L MCV 96.3 H MCH 27.9 MCHC 29.0 L RDW Std Deviation 87.4 H RDW Coeff of Liliane 25.7 H Plt Count 328 MPV 8.9 Immature Gran % (Auto) 0.600 Neut % (Auto) 65.9 Lymph % (Auto) 22.1 [place] % (Auto) 8.0 Eos % (Auto) 3.3 Baso % (Auto) 0.1 Absolute Neuts (auto) 5.4 Absolute Lymphs (auto) 1.82 Nucleated RBC % 0.2 Platelet Estimate A Polychromasia 1+ Anisocytosis 3+ Tear Drop Cells 1+ Ovalocytes 1+ Acanthocytes (Spur) 1+ PT 14.3 INR 1.1 APTT 32.8 Sodium 139 Potassium 4.1 Chloride 109 H Carbon Dioxide 21.0 Anion Gap 9 BUN 21 H Creatinine 1.01 Estim Creat Clear Calc 52.22 Est GFR (MDRD) Non-Af 80 BUN/Creatinine Ratio 20.9 H Glucose 94 Calcium 8.8 Iron 63 L TIBC 288 Iron Saturation 22.0 Unsaturated IBC 225 L Total Bilirubin < 0.15 Direct Bilirubin < 0.08 AST 24 ALT 22 Alkaline Phosphatase 66 Total Protein 6.1 Albumin 3.9 Globulin 2.2 Blood Type O POSITIVE Antibody Screen NEGATIVE Crossmatch See Detail Radiography Diagnostic Testing: Clinical Impression(s) from Imaging Studies Abdomen/Pelvis CTA 07/07/24 20:27 IMPRESSION: [id number] atherosclerotic calcification of the abdominal aorta and branches. No aneurysm or dissection is demonstrated. Evaluation for GI bleed is limited given lack of noncontrast and portal venous phase. No gross GI bleed is demonstrated. If there is high clinical suspicion, nuclear bleeding scan may be obtained for further characterization. Subtle circumferential wall thickening of the urinary bladder, please correlate with urinalysis. Reading Location: [facility] Discharge Plan Triage Chief Complaint: Abn Labs ED Provider: Tj Porter Dx/Rx/DC Orders Clinical Impression: Anemia, GI bleed Prescriptions: No Action albuterol sulfate 90 mcg/actuation HFA aerosol inhaler 2 puff INHALATION Q4H PRN PRN (Reason: Shortness Of Breath Or Wheezing) Qty: 3 3RF hydroxyzine HCl 25 mg tablet 25 mg PO BID PRN (Reason: anxiety) aspirin [Adult Low Dose Aspirin] 81 mg tablet,delayed release (DR/EC) 81 mg PO QDAY sertraline [Zoloft] 50 mg tablet 50 mg PO QDAY bupropion HCl 300 mg tablet extended release 24 hr 300 mg PO DAILY Ensure Liquid 240 ml PO DAILY PRN (Reason: SUPPLEMENT) acetaminophen 500 mg Tablet 1,000 mg PO Q8 7 Days Qty: 42 0RF Xarelto 20 mg tablet 20 mg PO DAILY Qty: 30 2RF Rx Instructions: must administer with evening meal donepezil 5 mg tablet 5 mg PO QHS omeprazole 40 mg capsule,delayed release(DR/EC) 40 mg PO DAILY ipratropium-albuterol 0.5 mg-3 mg(2.5 mg base)/3 mL solution for nebulization 3 ml inhalation BID amlodipine 5 mg Tablet 5 mg PO DAILY 90 Days Qty: 90 0RF ferrous sulfate [Feosol] 325 mg (65 mg iron) tablet 325 mg PO DAILY Qty: 90 0RF rosuvastatin 20 mg tablet 20 mg PO QDAY Qty: 30 2RF budesonide 1 mg/2 mL suspension for nebulization 1 mg inhalation BID Qty: 120 6RF Primary Care Provider: Claribel Guevara Referrals: Claribel Guevara, [employer] [Primary Care Provider] - Print Language: Mauritanian Disposition Disposition: Acute Care Hospital [facility]
[2024-07-07] MEDS: Pantoprazole Sodium 40 MG in 0.9% Normal Saline (100mL MB+) 100 ML 330 MG IV (21:05)
--- NOTE | 2024-07-07 23:05 | PCM.HP.STD ---
HPI - General General Date of Admission: 07/07/24 HPI Narrative LEIGH OLCO, is a 68 M who presents to the hospital with lightheadedness and significant blood loss anemia. He was recently in the hospital for GI bleeding, his initial evaluation with an EGD was negative for any signs of bleeding, his colonoscopy however demonstrated a polyp at the splenic flexure as well as a single bleeding colonic AVM. This was treated and his hemoglobin returned to normal and on 06/25/2024 he underwent vascular surgery intervention for his peripheral artery disease where he had angioplasty and stent of the left common iliac artery and left external iliac artery. He was placed on aspirin and Xarelto on discharge however today comes in with a hemoglobin of 5.3 and a positive Hemoccult. He does endorse some lightheadedness and dizziness but has not noticed any dark stools. [facility] Medical History ABLA (acute blood loss anemia) Opioid dependence Hematest positive stools Skin cancer, basal cell Hepatitis C Severe protein-calorie malnutrition Substance abuse Smoker Polysubstance abuse Alcohol use disorder Generalized anxiety disorder Major depressive disorder, recurrent severe without psychotic features Dysthymia Emphysema lung Nicotine dependence, cigarettes, uncomplicated Iron deficiency anemia PAD (peripheral artery disease) Basal cell carcinoma (BCC) Hemorrhoid GERD (gastroesophageal reflux disease) Depression Osteoarthritis Chronic back pain Home Medications ?Medication ?Instructions ?Recorded ?Last Taken ?Type bupropion HCl 300 mg 24 hr tablet, 300 mg PO DAILY ANXIETY 11/23/21 06/24/24 History extended release albuterol sulfate 90 mcg/actuation 2 puff inhalation Q4H PRN PRN 05/06/23 Unknown Rx aerosol inhaler Shortness Of Breath Or Wheezing #3 ea food supplemt, lactose-reduced 240 ml PO DAILY PRN SUPPLEMENT 06/13/23 Unknown History (Ensure oral liquid) hydroxyzine HCl 25 mg tablet 25 mg PO BID PRN anxiety 06/13/23 Unknown History aspirin 81 mg tablet,delayed 81 mg PO QDAY heart health 02/28/24 06/09/24 History release (Adult Low Dose Aspirin) sertraline 50 mg tablet (Zoloft) 50 mg PO QDAY mental health 02/28/24 06/24/24 History rosuvastatin 20 mg tablet 20 mg PO QDAY cholesterol #30 tabs 04/10/24 06/24/24 Rx budesonide 1 mg/2 mL suspension 1 mg (2 mL) inhalation BID 06/10/24 06/24/24 Rx for nebulization breathing #120 mL donepezil 5 mg tablet 5 mg PO QHS memory 06/10/24 06/09/24 History ipratropium 0.5 mg-albuterol 3 mg 3 ml inhalation BID SOB &/OR 06/10/24 06/24/24 History (2.5 mg base)/3 mL nebulization WHEEZING soln omeprazole 40 mg capsule,delayed 40 mg PO DAILY reflux 06/10/24 06/24/24 History release amlodipine 5 mg tablet 5 mg PO DAILY 90 days #90 tabs 06/13/24 06/24/24 Rx ferrous sulfate 325 mg (65 mg 325 mg PO DAILY #90 tabs 06/13/24 Unknown Rx iron) tablet (Feosol) rivaroxaban 20 mg tablet (Xarelto) 20 mg PO DAILY #30 tabs 06/25/24 Unknown Rx acetaminophen 500 mg tablet 1,000 mg PO Q8 PRN pain 07/07/24 Unknown History Allergy/AdvReac Type Severity Reaction Status Date / Time buspirone (From BuSpar) Allergy Mild shaking, Verified 07/07/24 19:03 restless legs sucralfate (From Carafate) Allergy Other Verified 07/07/24 19:03 venom-honey bee (bee venom Allergy Anaphylaxis Verified 07/07/24 19:03 (honey bee)) Family History Mother Diabetes Heart disease Hypertension Thyroid disorder Ulcer Sister Asthma Heart disease Hypertension Cancer multiple myeloma Surgical History S/P peripheral artery angioplasty with stent placement History of colonoscopy (~2018) History of cataract extraction Hx of local excision of skin lesion Hx of endarterectomy History of cholecystectomy (~2002) Social History household members: friend(s) Smoking Status: Former smoker Tobacco: How many years used: 50 Electronic Cigarette Use: not used second hand exposure: No quit status: considering quitting alcohol intake: former details: Sober since 2015. substance use type: other details: Fentanyl, snorted, does have prior IVDA history. ROS Constitutional Constitutional: Denies chills, fatigue, fever(s) or malaise Eyes Eyes: Denies blurry vision ENT HEENT: Denies headache(s) or nasal discharge Cardiovascular Cardiovascular: Reports lightheadedness; Denies chest pain, dyspnea on exertion or syncope Respiratory/Chest Respiratory/Chest: Denies cough, shortness of breath at rest or shortness of breath with exertion Gastrointestinal Gastrointestinal: Denies constipation, diarrhea, nausea or vomiting Genitourinary Genitourinary: Denies dysuria Neurologic Neurologic: Denies focal weakness, numbness or tremor(s) Psychiatric Psychiatric: Denies anxiety or depression Vital Signs Vital Signs Vital Signs: 07/07/24 17:44 07/07/24 19:00 07/07/24 19:25 Temperature 97 F L Temperature Source Temporal Pulse Rate 99 76 Respiratory Rate 18 20 H Respiratory Effort Normal Respiratory Pattern Normal Blood Pressure 105/68 96/61 Blood Pressure Mean 80 72 Blood Pressure Source Blood Pressure Location Pulse Ox 100 97 Oxygen Delivery Method Room Air Room Air 07/07/24 20:00 07/07/24 21:00 07/07/24 21:19 Temperature 98.4 F Temperature Source Oral Pulse Rate 78 78 79 Respiratory Rate 16 20 H Respiratory Effort Respiratory Pattern Blood Pressure 113/70 114/61 114/61 Blood Pressure Mean 84 78 78 Blood Pressure Source Monitor Blood Pressure Location Left Arm Pulse Ox 97 97 97 Oxygen Delivery Method Room Air Room Air 07/07/24 21:35 07/07/24 22:00 07/07/24 22:19 Temperature 97.9 F 97.6 F L Temperature Source Oral Pulse Rate 80 79 79 Respiratory Rate 18 12 14 Respiratory Effort Respiratory Pattern Blood Pressure 117/62 112/61 117/69 Blood Pressure Mean 80 78 85 Blood Pressure Source Monitor Blood Pressure Location Left Arm Pulse Ox 99 95 95 Oxygen Delivery Method Room Air Weight Weight: 119 lb 9.6 oz Body Mass Index (BMI) 17.2 Physical Exam Narrative General: Alert, Oriented x3, Cooperative, No apparent distress, pale HEENT: Atraumatic, PERRLA, EOMI, Normocephalic Oral: Moist Mucosa Neck: Supple, No JVD Lungs: Diminished, Normal air movement, No rhonchi, No wheeze, No rales Cardiovascular: Regular rate, Regular Rhythm, Normal S1, Normal S2, No murmurs Abdomen: Soft, Non Tender, Non-Distended, No Hepato-splenomegaly Extremities: No edema, Capillary Refill Less than 3 Seconds Skin: No rashes, No breakdown Musculoskeletal: No Tenderness to Palpation of Joints or Extremities Neurological: No focal neurological deficits, Motor Exam 5/5 strength throughout, Sensory exam intact to light touch and pain Psych/Mental Status: Normal Affect, Appropriate Results Lab / Micro Data 07/07/24 18:00 07/07/24 18:00 Labs: Laboratory Results - last 24 hr 07/07/24 18:00: WBC 8.2, RBC 1.90 L, Hgb 5.3 L*, Hct 18.3 L, MCV 96.3 H, MCH 27.9, MCHC 29.0 L, RDW Std Deviation 87.4 H, RDW Coeff of Liliane 25.7 H, Plt Count 328, MPV 8.9, Immature Gran % (Auto) 0.600, Neut % (Auto) 65.9, Lymph % (Auto) 22.1, [place] % (Auto) 8.0, Eos % (Auto) 3.3, Baso % (Auto) 0.1, Absolute Neuts (auto) 5.4, Absolute Lymphs (auto) 1.82, Nucleated RBC % 0.2, Platelet Estimate A, Polychromasia 1+, Anisocytosis 3+, Tear Drop Cells 1+, Ovalocytes 1+, Acanthocytes (Spur) 1+, PT 14.3, INR 1.1, APTT 32.8, Sodium 139, Potassium 4.1, Chloride 109 H, Carbon Dioxide 21.0, Anion Gap 9, BUN 21 H, Creatinine 1.01, Estim Creat Clear Calc 52.22, Est GFR (MDRD) Non-Af 80, BUN/Creatinine Ratio 20.9 H, Glucose 94, Calcium 8.8, Iron 63 L, TIBC 288, Iron Saturation 22.0, Unsaturated IBC 225 L, Total Bilirubin < 0.15, Direct Bilirubin < 0.08, AST 24, ALT 22, Alkaline Phosphatase 66, Total Protein 6.1, Albumin 3.9, Globulin 2.2, Blood Type O POSITIVE, Antibody Screen NEGATIVE, Crossmatch See Detail Micro: Microbiology 07/07/24 19:46 Stool Stool Occult Blood (MARCIA) - Final Occult Blood Positive Imaging Radiology Impression Abdomen/Pelvis CTA 07/07/24 20:27 IMPRESSION: [id number] atherosclerotic calcification of the abdominal aorta and branches. No aneurysm or dissection is demonstrated. Evaluation for GI bleed is limited given lack of noncontrast and portal venous phase. No gross GI bleed is demonstrated. If there is high clinical suspicion, nuclear bleeding scan may be obtained for further characterization. Subtle circumferential wall thickening of the urinary bladder, please correlate with urinalysis. [facility] Assessment & Plan Assessment/Plan (1) GI bleed: (2) Anemia: PLAN: Plan 1. Acute blood loss anemia secondary to lower GI bleed/iron deficiency anemia ? Previous EGD demonstrated no significant pathology however colonoscopy demonstrated a single AVM ? Will make n.p.o. and consult GI for possible colonoscopy ? Recheck CBC in the morning ? Will transfuse 3 units PRBCs already ordered in the ER ? Continue with his iron supplementation ? Will temporarily hold his aspirin and his Xarelto though would recommend contact in the morning with vascular surgery to determine any medication changes ? His iron studies look much better today than they did on his previous admission ? Continue with his home p.o. PPI 2. Peripheral artery disease with claudication status post bilateral internal/external iliac angioplasty and stent/HLD/tobacco abuse ? Would recommend discussing with vascular surgery the role of Xarelto and aspirin in the setting of a recurrent lower GI bleed ? Will continue with his home statin 3. Anxiety/depression/dementia ? Stable ? Will continue with his home medications 4. COPD ? Not in exacerbation ? Will continue with his home inhalers DVT: SCDs 76 minutes was spent on direct patient care, including documentation as well as chart review and collaboration with colleagues Charges/Coding Visit Charges Inpatient E&M: 15032 Init Hosp L3
[2024-07-08] VITALS (15 sets, daily range): BP systolic 122–150; BP diastolic 64–86; PULSE 68–81; RESP 15–18; TEMP 36.3–37.3; O2SAT 95–100
[2024-07-08 08:47] LABS: Absolute Lymphocyte Count 1.81 X10^3/uL (0.83-4.51); Absolute Neutrophil Count 5.1 X10^3/uL (2.0-7.7); Basophil# 0.02 X10^3/uL; Basophil% 0.3 % (0-1); Eosinophil# 0.27 X10^3/uL; Eosinophils% 3.4 % (0-5); Hematocrit 32.1 % (40-54); Hemoglobin 10.6 g/dL (13.0-16.5); Lymphocyte # 1.81 X10^3/ul (0.83-4.51); Lymphocyte % 23.1 % (19-41); Mean Corpuscular Hgb 28.3 pg (27.0-32.0); Mean Corpuscular Volume 85.8 fL (80-94); Mean Platelet Vol. 8.5 fl (6.2-12.0); Monocyte% 7.7 % (0-10); NRBC Flagged by Analyzer 0.3 % (0-5); Neutrophil # 5.11 X10^3/uL (2.7-7.7); Neutrophil % 65.1 % (47-70); POSITIVE MORPHOLOGY YES; Platelet Count 306 K/mm3 (150-450); RBC Distribution Width CV 23.3 % (11.6-14.6); RBC Distribution Width SD 70.3 fl (35.1-43.9); Red Blood Count 3.74 M/mm3 (4.6-6.2); White Blood Count 7.8 K/mm3 (4.4-11.0)
[2024-07-08 08:49] LABS: Differential Indicated SCAN CRITERIA MET
--- NOTE | 2024-07-08 09:08 | PCM.PN.HOSP ---
Reason for Visit Reason for Visit: Diagnoses Anemia, unspecified (07/07/24) Gastrointestinal hemorrhage, unspecified (07/07/24) Subjective Subjective Patient is a 68-year-old gentleman who was sent to the ED by the primary care physician with hemoglobin of 5.4 Objective Data Objective Data GENERAL: cooperative HEENT: Atraumatic; normocephalic EYES; Anicteric, Normal Conjunctiva NECK; supple, normal thyroid, RESPIRATORY: Diminished to auscultation CARDIOVASCULAR: Regular S1 S2, GI: soft, normoactive bowel sounds, : No Renal angle tenderness; EXTREMITIES: No edema, no clubbing, MUSCULOSKELETAL: no muscle wasting NEURO: Awake; no lateralizing signs. SKIN: No Rash PSYCH; Flat affect Vital Signs: Vital Signs Temp Pulse Resp BP Pulse Ox O2 Del Method 99.1 F 68 16 122/74 H 96 Room Air 07/08/24 08:18 07/08/24 08:18 07/08/24 08:18 07/08/24 08:18 07/08/24 08:18 07/08/24 08:18 Oxygen Delivery Method Room Air Weight: 53.7 kg Body Mass Index (BMI) 16.9 Intake & Output: Intake and Output for Last 24 Hours 07/06/24 07/07/24 07/08/24 23:59 23:59 23:59 Intake Total 100 / 100 1300 / 1300 Output Total 1450 / 1450 Balance 100 / 100 -150 / -150 Lab / Micro Data 07/08/24 08:38 07/07/24 18:00 Labs: Laboratory Results - last 24 hr 07/07/24 18:00: WBC 8.2, RBC 1.90 L, Hgb 5.3 L*, Hct 18.3 L, MCV 96.3 H, MCH 27.9, MCHC 29.0 L, RDW Std Deviation 87.4 H, RDW Coeff of Liliane 25.7 H, Plt Count 328, MPV 8.9, Immature Gran % (Auto) 0.600, Neut % (Auto) 65.9, Lymph % (Auto) 22.1, [place] % (Auto) 8.0, Eos % (Auto) 3.3, Baso % (Auto) 0.1, Absolute Neuts (auto) 5.4, Absolute Lymphs (auto) 1.82, Nucleated RBC % 0.2, Platelet Estimate A, Polychromasia 1+, Anisocytosis 3+, Tear Drop Cells 1+, Ovalocytes 1+, Acanthocytes (Spur) 1+, PT 14.3, INR 1.1, APTT 32.8, Sodium 139, Potassium 4.1, Chloride 109 H, Carbon Dioxide 21.0, Anion Gap 9, BUN 21 H, Creatinine 1.01, Estim Creat Clear Calc 52.22, Est GFR (MDRD) Non-Af 80, BUN/Creatinine Ratio 20.9 H, Glucose 94, Calcium 8.8, Iron 63 L, TIBC 288, Iron Saturation 22.0, Unsaturated IBC 225 L, Total Bilirubin < 0.15, Direct Bilirubin < 0.08, AST 24, ALT 22, Alkaline Phosphatase 66, Total Protein 6.1, Albumin 3.9, Globulin 2.2, Blood Type O POSITIVE, Antibody Screen NEGATIVE, Crossmatch See Detail 07/08/24 08:38: WBC 7.8, RBC 3.74 L, Hgb 10.6 L, Hct 32.1 L, MCV 85.8 D, MCH 28.3, MCHC 33.0 D, RDW Std Deviation 70.3 H, RDW Coeff of Liliane 23.3 H, Plt Count 306, MPV 8.5, Immature Gran % (Auto) 0.400, Neut % (Auto) 65.1, Lymph % (Auto) 23.1, [place] % (Auto) 7.7, Eos % (Auto) 3.4, Baso % (Auto) 0.3, Absolute Neuts (auto) 5.1, Absolute Lymphs (auto) 1.81, Nucleated RBC % 0.3 Micro: Microbiology 07/07/24 19:46 Stool Stool Occult Blood (MARCIA) - Final Occult Blood Positive Radiography Diagnostic Testing: Radiology Impression Abdomen/Pelvis CTA 07/07/24 20:27 IMPRESSION: [id number] atherosclerotic calcification of the abdominal aorta and branches. No aneurysm or dissection is demonstrated. Evaluation for GI bleed is limited given lack of noncontrast and portal venous phase. No gross GI bleed is demonstrated. If there is high clinical suspicion, nuclear bleeding scan may be obtained for further characterization. Subtle circumferential wall thickening of the urinary bladder, please correlate with urinalysis. Reading Location: [facility] Assessment & Plan Assessment/Plan (1) Anemia: PLAN: Plan Patient is a 68-year-old gentleman who was sent to the ED by the primary care physician with hemoglobin of 5.4 1. Acute symptomatic anemia ? Patient presented with hemoglobin of 5.4. Patient was transfused with 3 unit PRBC. Patient had undergone EGD and colonoscopy on 06/13/2024 was found to have medium size hiatal hernia as well as a single bleeding colonic angio dysplastic lesion which was treated with a monopolar probe.. Had a discussion with patient's sister regarding patient persistent anemia did express the fact that patient is on systemic anticoagulation with Xarelto as well as aspirin which could be contributing. Patient will however benefit from hematology consult. Did order iron infusion 2. Peripheral arterial disease ? With history of bilateral lower extremity percutaneous angioplasty with stent placement. Patient is on antiplatelet therapy with aspirin as well as systemic anticoagulation with Xarelto held given patient presentation. Consult was placed to vascular surgery to advise on therapy given patient anemia ? Secondary to chronic disorder monitoring H&H and transfuse if patient becomes symptomatic or hemoglobin falls below 7 3. Hypertension ? Blood pressure controlled, home medications continued with dose adjustment as needed 4. . Dyslipidemia ?Patient is also on rosuvastatin did continue 5. COPD ? Currently not in exacerbation 6. Tobacco dependence ? Counseled on cessation, offered nicotine patch for tobacco cravings 7. Chronic hep C ? Patient to follow-up with PCP for subsequent care 8. Depression with anxiety ? Patient is on sertraline as well as hydroxyzine as needed 9. GERD ? Patient is on omeprazole 10. DVT prophylaxis ? Patient was on Xarelto held given patient presentation Charges/Coding Visit Charges Inpatient E&M: 03780 Subs Hosp L2
[2024-07-08 09:12] LABS: Anion Gap 10 (5-15); BUN 19 mg/dL (4-19); BUN/Creat Ratio 22.1 RATIO (10-20); Calcium,Total 8.9 mg/dL (7.6-11.0); Chloride 107 mmol/L (98-108); Creatinine, Serum 0.86 mg/dL (0.70-1.20); EST Glomerular Filtration Rate 93 (>60); Estimated Creatinine Clearance 60.71 ml/min (50-250); Glucose 96 mg/dL (70-99); Potassium 4.1 mmol/L (3.3-5.1); Sodium Level 138 mmol/L (133-145)
--- NOTE | 2024-07-08 09:23 | CASEMGMT ---
TC from [facility] CM requesting information regarding pt admission. Info given at this time.
[2024-07-08 09:40] LABS: Anisocytosis 1+
[2024-07-08] MEDS: Sodium Ferric Gluconat/Sucrose 250 MG in 0.9% Normal Saline (250mL Bag) 250 ML 135 MG IV (10:12)
[2024-07-08] MEDS: Ipratropium/Albuterol Sulfate 3 ML AMPUL.NEB INHALATION (10:37)
[2024-07-08] MEDS: Budesonide Respules 0.5 MG/2 ML AMPUL.NEB. 1 MG INHALATION (10:38)
--- NOTE | 2024-07-08 14:11 | CON.PCM.ON_ITS ---
Assessment & Plan Assessment/Plan (1) Anemia: Status: Acute Code(s): D64.9 - Anemia, unspecified Qualifiers: Iron deficiency anemia type: chronic blood loss Plan: Pleasant 68 year old man with recurrent GI bleeding following initiation of anticoagulation post procedure. - Await GI consult. - Transfuse to keep Hgb >8 g/dL. - Continue ferrous sulfate 325 mg daily PO (tolerates 325 mg PO without complaints of constipation). Administer with vitamin C for best absorption. - Follow up with [facility] on 07/21/24 as previously planned to provide IV iron if additional doses are needed at that time. HPI Consult Data Date of Service:: 07/08/24 PCP / Referring Provider: TAWANDA DobsonC Attending: Dr. Rcoco Cruz MD Chief Complaint Chief Complaint: Anemia History of Present Illness History of Present Illness: is a pleasant 68 year old gentleman with a PMH for hepatitis C, polysubstance abuse, COPD, GERD, PAD and depression who presented to [facility] ED on 07/07/24 with c/o lightheadedness. He was found to have a Hgb of 5.3 g/dL and positive stool hemoccult. He was admitted and given 3 units of PRBCs. ASA and Xarelto held. GI consult requested. Of note he was admitted to [facility] May 31- June 13, 2024 with GI bleeding. On June 12, 2024 he underwent an EGD on which showed a medium-sized hiatal hernia and a colonoscopy on reported polyps at the splenic flexure and within the rectum ( path showed tubular adenomas), diverticulosis, as well as a single bleeding colonic AVM, treated with contact coagulation. Anemia resolved. He was recommended by GI in the ambulatory setting to establish with hematology for IV iron as he reportedly did not tolerate PO iron replacement following episodic bleed. On 06/25/24 he had angioplasty and stent of the left common iliac artery and left external iliac artery and was subsequently placed on ASA and Xarelto. Advanced Directives Do you have a Healthcare Power of Stockholder?: No [facility] Medical History (Updated 07/08/24 @ 14:22 by Ami Mata NP, COMMUNICATIONS MAINTAINER-C) Pancreatitis Asthma DVT (deep venous thrombosis) ABLA (acute blood loss anemia) Hepatitis C Severe protein-calorie malnutrition Substance abuse Smoker Opioid dependence Polysubstance abuse Alcohol use disorder Generalized anxiety disorder Major depressive disorder, recurrent severe without psychotic features Dysthymia Hematest positive stools Emphysema lung Nicotine dependence, cigarettes, uncomplicated Iron deficiency anemia Skin cancer, basal cell PAD (peripheral artery disease) Basal cell carcinoma (BCC) Hemorrhoid GERD (gastroesophageal reflux disease) Depression Osteoarthritis Chronic back pain Home Medications ?Medication ?Instructions ?Recorded ?Last Taken ?Type bupropion HCl 300 mg 24 hr tablet, 300 mg PO DAILY ANX IETY 11/23/21 06/24/24 History extended release albuterol sulfate 90 mcg/actuation 2 puff inhalation Q 4H PRN PRN 05/06/23 Unknown Rx aerosol inhaler Shortness Of Breath Or Wheez ing #3 ea food supplemt, lactose-reduced 240 ml PO DAILY PRN SUP PLEMENT 06/13/23 Unknown History (Ensure oral liquid) hydroxyzine HCl 25 mg tablet 25 mg PO BID PRN anxiety 06/13/23 Unknown History aspirin 81 mg tablet,delayed 81 mg PO QDAY heart healt h 02/28/24 06/09/24 History release (Adult Low Dose Aspirin) sertraline 50 mg tablet (Zoloft) 50 mg PO QDAY mental health 02/28/24 06/24/24 History rosuvastatin 20 mg tablet 20 mg PO QDAY cholesterol #3 0 tabs 04/10/24 06/24/24 Rx budesonide 1 mg/2 mL suspension 1 mg (2 mL) inhalation BID 06/10/24 06/24/24 Rx for nebulization breathing #120 mL donepezil 5 mg tablet 5 mg PO QHS memory 06/10/24 06/09/24 History ipratropium 0.5 mg-albuterol 3 mg 3 ml inhalation BID SOB &/OR 06/10/24 06/24/24 History (2.5 mg base)/3 mL nebulization WHEEZING soln omeprazole 40 mg capsule,delayed 40 mg PO DAILY reflux 06/10/24 06/24/24 History release amlodipine 5 mg tablet 5 mg PO DAILY 90 days #90 ta bs 06/13/24 06/24/24 Rx ferrous sulfate 325 mg (65 mg 325 mg PO DAILY #90 tabs 06/13/24 Unknown Rx iron) tablet (Feosol) rivaroxaban 20 mg tablet (Xarelto) 20 mg PO DAILY #30 tabs 06/25/24 Unknown Rx acetaminophen 500 mg tablet 1,000 mg PO Q8 PRN pain Unknown History Allergy/AdvReac Type Severity Reaction Status Date / Time buspirone (From BuSpar) Allergy Mild shaking, Verified 07/07/24 19:03 restless legs sucralfate (From Carafate) Allergy Other Verified 07/07/24 19:03 venom-honey bee (bee venom Allergy Anaphylaxis Verified 07/07/24 19:03 (honey bee)) Family History Mother Diabetes Heart disease Hypertension Thyroid disorder Ulcer Sister Asthma Heart disease Hypertension Cancer multiple myeloma Surgical History (Updated 07/07/24 @ 23:49 by Gisell Fry) History of cholecystectomy S/P peripheral artery angioplasty with stent placement History of colonoscopy (~2018) History of cataract extraction Hx of local excision of skin lesion Hx of endarterectomy History of cholecystectomy (~2002) Social History household members: friend(s) Smoking Status: Former smoker Tobacco: How many years used: 50 Electronic Cigarette Use: not used second hand exposure: No quit status: considering quitting alcohol intake: former details: Sober since 2016. substance use type: other details: Fentanyl, snorted, does have prior IVDA history. ROS Constitutional Constitutional: Reports weight loss; Denies chills, fatigue, fever(s) or malaise Eyes Eyes: Denies blurry vision ENT HEENT: Denies headache(s) or nasal discharge Cardiovascular Cardiovascular: Reports lightheadedness; Denies chest pain, dyspnea on exertion or syncope Respiratory/Chest Respiratory/Chest: Denies cough, shortness of breath at rest or shortness of breath with exertion Gastrointestinal Gastrointestinal: Reports change in bowel habits, early satiety, hematochezia and melena; Denies constipation, diarrhea, nausea or vomiting Genitourinary Genitourinary: Reports hematuria Hematologic/Lymphatic Hematologic/Lymphatic: Denies lymphadenopathy Physical Exam Const alert and oriented x3 HEENT normocephalic and head/scalp atraumatic Mouth: oral and palatal mucosa normal Eyes General Eye: normal appearance of both eyes Neck no lymphadenopathy and supple Resp normal respiratory effort and clear to auscultation bilaterally Effort and Inspection: able to speak in complete sentences Cardio regular rate, regular rhythm, S1 normal heart sound and S2 normal heart sound GI normal to inspection, nondistended, normoactive bowel sounds and soft to palpation Extremity Extremity Narrative: + clubbing Skin no petechiae Neuro oriented x3 and CN's II-XII intact bilaterally Psych mental status grossly normal Attitude: calm and engaged Vital Signs Temperature 99.1 F 07/08/24 08:18 Temperature Source Temporal 07/08/24 08:18 Pulse Rate 70 07/08/24 10:40 Respiratory Rate 16 07/08/24 10:40 Respiratory Effort Normal, Non-Labored 07/08/24 00:12 Respiratory Depth Normal 07/08/24 00:12 Respiratory Pattern Normal 07/08/24 10:40 Blood Pressure 122/74 H 07/08/24 08:18 Blood Pressure Mean 90 07/08/24 08:18 Blood Pressure Source Monitor 07/08/24 08:18 Blood Pressure Position Semi-Fowlers 07/08/24 08:18 Blood Pressure Location Right Arm 07/08/24 08:18 Pulse Ox 98 07/08/24 10:40 Oxygen Delivery Method Room Air 07/08/24 10:40 Laboratory Results - last 24 hr 07/07/24 18:00: WBC 8.2, RBC 1.90 L, Hgb 5.3 L*, Hct 18.3 L, MCV 96.3 H, MCH 27.9, MCHC 29.0 L, RDW Std Deviation 87.4 H, RDW Coeff of Liliane 25.7 H, Plt Count 328, MPV 8.9, Immature Gran % (Auto) 0.600, Neut % (Auto) 65.9, Lymph % (Auto) 22.1, [place] % (Auto) 8.0, Eos % (Auto) 3.3, Baso % (Auto) 0.1, Absolute Neuts (auto) 5.4, Absolute Lymphs (auto) 1.82, Nucleated RBC % 0.2, Platelet Estimate A, Polychromasia 1+, Anisocytosis 3+, Tear Drop Cells 1+, Ovalocytes 1+, Acanthocytes (Spur) 1+, PT 14.3, INR 1.1, APTT 32.8, Sodium 139, Potassium 4.1, Chloride 109 H, Carbon Dioxide 21.0, Anion Gap 9, BUN 21 H, Creatinine 1.01, Estim Creat Clear Calc 52.22, Est GFR (MDRD) Non-Af 80, BUN/Creatinine Ratio 20.9 H, Glucose 94, Calcium 8.8, Iron 63 L, TIBC 288, Iron Saturation 22.0, Unsaturated IBC 225 L, Total Bilirubin < 0.15, Direct Bilirubin < 0.08, AST 24, ALT 22, Alkaline Phosphatase 66, Total Protein 6.1, Albumin 3.9, Globulin 2.2, Blood Type O POSITIVE, Antibody Screen NEGATIVE, Crossmatch See Detail 07/08/24 08:38: WBC 7.8, RBC 3.74 L, Hgb 10.6 L, Hct 32.1 L, MCV 85.8 D, MCH 28.3, MCHC 33.0 D, RDW Std Deviation 70.3 H, RDW Coeff of Liliane 23.3 H, Plt Count 306, MPV 8.5, Immature Gran % (Auto) 0.400, Neut % (Auto) 65.1, Lymph % (Auto) 23.1, [place] % (Auto) 7.7, Eos % (Auto) 3.4, Baso % (Auto) 0.3, Absolute Neuts (auto) 5.1, Absolute Lymphs (auto) 1.81, Nucleated RBC % 0.3, Anisocytosis 1+, Sodium 138, Potassium 4.1, Chloride 107, Carbon Dioxide 21.0, Anion Gap 10, BUN 19, Creatinine 0.86, Estim Creat Clear Calc 60.71, Est GFR (MDRD) Non-Af 93, BUN/Creatinine Ratio 22.1 H, Glucose 96, Calcium 8.9 Microbiology 07/07/24 19:46 Stool Stool Occult Blood (MARCIA) - Final Occult Blood Positive Diagnostic Data Abdomen/Pelvis CTA 07/07/24 20:27 IMPRESSION: [id number] atherosclerotic calcification of the abdominal aorta and branc hes. No aneurysm or dissection is demonstrated. Evaluation for GI bleed is limited given lack of noncontrast and portal venous phase. No gross GI bleed is demonstrated. If there is high clinical suspicion, nuclear bleeding scan may be obtained for further characterization. Subtle circumferential wall thickening of the urinary bladder, please correlate with urinalysis. Reading [facility]
--- NOTE | 2024-07-08 15:46 | CASEMGMT ---
MARTHA LONDONO Readmission Note Previous Admission: 06/10/24-06/13/24 Diagnosis: anemia DC Disposition: Home with outpt therapy rx Current Admission: Admitted 07/07/24 Current Diagnosis: GIB Pt presented with Hgb of 6.7. Iron studies revealed iron deficiency anemia. Pt transfused 2 units PRBC's and was seen by GI for EGD and colonoscopy that revealed 1- 15mm polyp that was removed with hot snare, 1- 5mm polyp removed with cold forceps and a single angiodysplastic lesion found. Pt was noted to have elevated BP and not on any antihypertensive agents to dc'd on amlodipine. Pt also dc'd from index admission with rx for OP therapy. Pt was admitted in obs on 06/24-06/25/24 for angioplasty stent L common iliac artery, L ext iliac artery, thrombectomy of R common iliac artery and stent and angioplasty stent R common iliac artery. Pt was dc'd on xarelto x 3mos and asa daily. Pt represented to [facility] for GIB. Pt reports feeling dizzy. RN CM into pt room, pt states he had stopped taking his amlodipine. He reports taking all of his other meds as ordered. Pt lives alone and gets around without device. Pt states he does not recall any outpt therapy rx from previous admission but denies any need for this. Pt to have GI c/s. Pt had heme/onc c/s this stay. MARTHA LONDONO to follow for any homegoing needs. DC Plan: Home
[2024-07-08] MEDS: Albuterol 2.5 MG/3 ML VIAL.NEB. INHALATION (16:16)
--- NOTE | 2024-07-08 19:46 | EX.PCM.CON.G ---
HPI Consult Data Date of Consult: 07/08/24 HPI Narrative Reason for Consultation: Anemia HPI Narrative: LEIGH LOCO, is a 68 M who presents to the office today for establishment with [facility] for recent ABLA and hospitalization at [facility] from 4.30-5.3.25. He has a past medical history of hepatitis C, polysubstance abuse, alcohol use disorder, GERD, iron deficiency anemia, peripheral arterial disease status post stents who presents to the emergency department with a chief complaint of low hemoglobin. He received 2 units of PRBCs and underwent bidirectional endoscopies. EGD demonstrated normal esophagus, medium-sized hiatal hernia, normal examined duodenum; no specimens collected. Colonoscopy resulted one 15 mm polyp at the splenic flexure, removed with a hot snare; a single bleeding colonic angiodysplastic lesion treated with a monopolar probe; diverticulosis in the recto-sigmoid colon, in the sigmoid colon and in the descending colon; one 5 mm polyp at the recto-sigmoid colon, removed with a jumbo cold forceps; repeat colonoscopy in 5 years for surveillance. Iron studies did show severe iron deficiency anemia with iron level of 12 and ferritin of 10. He was discharged on ferrous sulfate 325mg to be taken daily. [facility] Medical History Pancreatitis Asthma DVT (deep venous thrombosis) ABLA (acute blood loss anemia) Hepatitis C Severe protein-calorie malnutrition Substance abuse Smoker Opioid dependence Polysubstance abuse Alcohol use disorder Generalized anxiety disorder Major depressive disorder, recurrent severe without psychotic features Dysthymia Hematest positive stools Emphysema lung Nicotine dependence, cigarettes, uncomplicated Iron deficiency anemia Skin cancer, basal cell PAD (peripheral artery disease) Basal cell carcinoma (BCC) Hemorrhoid GERD (gastroesophageal reflux disease) Depression Osteoarthritis Chronic back pain Home Medications ?Medication ?Instructions ?Recorded ?Last Taken ?Type bupropion HCl 300 mg 24 hr tablet, 300 mg PO DAILY ANXIETY 11/23/21 06/24/24 History extended release albuterol sulfate 90 mcg/actuation 2 puff inhalation Q4H PRN PRN 05/06/23 Unknown Rx aerosol inhaler Shortness Of Breath Or Wheezing #3 ea food supplemt, lactose-reduced 240 ml PO DAILY PRN SUPPLEMENT 06/13/23 Unknown History (Ensure oral liquid) hydroxyzine HCl 25 mg tablet 25 mg PO BID PRN anxiety 06/13/23 Unknown History aspirin 81 mg tablet,delayed 81 mg PO QDAY heart health 02/28/24 06/09/24 History release (Adult Low Dose Aspirin) sertraline 50 mg tablet (Zoloft) 50 mg PO QDAY mental health 02/28/24 06/24/24 History rosuvastatin 20 mg tablet 20 mg PO QDAY cholesterol #30 tabs 04/10/24 06/24/24 Rx budesonide 1 mg/2 mL suspension 1 mg (2 mL) inhalation BID 06/10/24 06/24/24 Rx for nebulization breathing #120 mL donepezil 5 mg tablet 5 mg PO QHS memory 06/10/24 06/09/24 History ipratropium 0.5 mg-albuterol 3 mg 3 ml inhalation BID SOB &/OR 06/10/24 06/24/24 History (2.5 mg base)/3 mL nebulization WHEEZING soln omeprazole 40 mg capsule,delayed 40 mg PO DAILY reflux 06/10/24 06/24/24 History release amlodipine 5 mg tablet 5 mg PO DAILY 90 days #90 tabs 06/13/24 06/24/24 Rx ferrous sulfate 325 mg (65 mg 325 mg PO DAILY #90 tabs 06/13/24 Unknown Rx iron) tablet (Feosol) rivaroxaban 20 mg tablet (Xarelto) 20 mg PO DAILY #30 tabs 06/25/24 Unknown Rx acetaminophen 500 mg tablet 1,000 mg PO Q8 PRN pain 07/07/24 Unknown History Allergy/AdvReac Type Severity Reaction Status Date / Time buspirone (From BuSpar) Allergy Mild shaking, Verified 07/07/24 19:03 restless legs sucralfate (From Carafate) Allergy Other Verified 07/07/24 19:03 venom-honey bee (bee venom Allergy Anaphylaxis Verified 07/07/24 19:03 (honey bee)) Family History Mother Diabetes Heart disease Hypertension Thyroid disorder Ulcer Sister Asthma Heart disease Hypertension Cancer multiple myeloma Surgical History History of cholecystectomy S/P peripheral artery angioplasty with stent placement History of colonoscopy (~2018) History of cataract extraction Hx of local excision of skin lesion Hx of endarterectomy History of cholecystectomy (~2002) Social History household members: friend(s) Smoking Status: Former smoker Tobacco: How many years used: 50 Electronic Cigarette Use: not used second hand exposure: No quit status: considering quitting alcohol intake: former details: Sober since 2016. substance use type: other details: Fentanyl, snorted, does have prior IVDA history. ROS Constitutional Constitutional: Reports weight loss; Denies chills, fatigue, fever(s) or malaise Eyes Eyes: Denies blurry vision ENT HEENT: Denies headache(s) or nasal discharge Cardiovascular Cardiovascular: Reports lightheadedness; Denies chest pain, dyspnea on exertion or syncope Respiratory/Chest Respiratory/Chest: Denies cough, shortness of breath at rest or shortness of breath with exertion Gastrointestinal Gastrointestinal: Reports change in bowel habits, early satiety, hematochezia and melena; Denies constipation, diarrhea, nausea or vomiting Genitourinary Genitourinary: Reports hematuria Hematologic/Lymphatic Hematologic/Lymphatic: Denies lymphadenopathy Physical Exam Const alert and oriented x3 HEENT normocephalic and head/scalp atraumatic Mouth: oral and palatal mucosa normal Eyes General Eye: normal appearance of both eyes Neck no lymphadenopathy and supple Resp normal respiratory effort and clear to auscultation bilaterally Effort and Inspection: able to speak in complete sentences Cardio regular rate, regular rhythm, S1 normal heart sound and S2 normal heart sound GI normal to inspection, nondistended, normoactive bowel sounds and soft to palpation Extremity Extremity Narrative: + clubbing Skin no petechiae Neuro oriented x3 and CN's II-XII intact bilaterally Psych mental status grossly normal Attitude: calm and engaged Lab / Micro Data 07/08/24 08:38 07/08/24 08:38 Labs: Laboratory Results - last 24 hr 07/07/24 18:00: Iron 63 L, TIBC 288, Iron Saturation 22.0, Unsaturated IBC 225 L, Total Bilirubin < 0.15, Direct Bilirubin < 0.08, AST 24, ALT 22, Alkaline Phosphatase 66, Total Protein 6.1, Albumin 3.9, Globulin 2.2, Crossmatch See Detail 07/08/24 08:38: WBC 7.8, RBC 3.74 L, Hgb 10.6 L, Hct 32.1 L, MCV 85.8 D, MCH 28.3, MCHC 33.0 D, RDW Std Deviation 70.3 H, RDW Coeff of Liliane 23.3 H, Plt Count 306, MPV 8.5, Immature Gran % (Auto) 0.400, Neut % (Auto) 65.1, Lymph % (Auto) 23.1, [place] % (Auto) 7.7, Eos % (Auto) 3.4, Baso % (Auto) 0.3, Absolute Neuts (auto) 5.1, Absolute Lymphs (auto) 1.81, Nucleated RBC % 0.3, Anisocytosis 1+, Sodium 138, Potassium 4.1, Chloride 107, Carbon Dioxide 21.0, Anion Gap 10, BUN 19, Creatinine 0.86, Estim Creat Clear Calc 60.71, Est GFR (MDRD) Non-Af 93, BUN/Creatinine Ratio 22.1 H, Glucose 96, Calcium 8.9 Micro: Microbiology 07/07/24 19:46 Stool Stool Occult Blood (MARCIA) - Final Occult Blood Positive Imaging Radiology Impression Abdomen/Pelvis CTA 07/07/24 20:27 IMPRESSION: [id number] atherosclerotic calcification of the abdominal aorta and branches. No aneurysm or dissection is demonstrated. Evaluation for GI bleed is limited given lack of noncontrast and portal venous phase. No gross GI bleed is demonstrated. If there is high clinical suspicion, nuclear bleeding scan may be obtained for further characterization. Subtle circumferential wall thickening of the urinary bladder, please correlate with urinalysis. Reading Location: [facility] Assessment & Plan Assessment/Plan (1) Peripheral arterial disease: (2) Claudication, intermittent: (3) Iron deficiency anemia: QUALIFIERS: Iron deficiency anemia type: unspecified iron deficiency Qualified Code(s): D50.9 - Iron deficiency anemia, unspecified PLAN: Plan Patient is a 68-year-old gentleman admitted with progressive generalized weakness found to be anemic with hemoglobin of 5.3 Acute symptomatic anemia ? Patient presented with hemoglobin of 5.3. Iron studies did show severe iron deficiency anemia with iron level of 12 and ferritin of 10. Per patient his last scope was more than 10 years prior. He will need to endoscopic evaluation with an push enteroscopy and repeat capsule study. N.p.o. postmidnight. Charges/Coding Visit Charges Inpatient E&M: 09248 Init Hosp L3
[2024-07-08] MEDS: Atorvastatin Calcium 40 MG Tablet PO (21:00)
[2024-07-08] MEDS: Donepezil HCl 5 MG Tablet PO (21:00)
[2024-07-08] MEDS: Acetaminophen 500 MG Tablet 1000 MG PO (21:11)
--- NOTE | 2024-07-08 21:14 | NURSING ---
1930: Dr. Tobin here to see patient. per Friend, patient can eat & drink and then is to be NPO @ midnight for EGD tomorrow. sandwich, snack and drink provided to patient at this time.
[2024-07-09] VITALS (9 sets, daily range): BP systolic 96–150; BP diastolic 63–86; PULSE 62–77; RESP 12–18; TEMP 36.1–37.1; O2SAT 96–100
--- NOTE | 2024-07-09 01:39 | EKG12_ITS ---
Test Reason : PRE-OP Blood Pressure : */* mmHG Vent. Rate : 63 BPM Atrial Rate : 63 BPM P-R Int : 116 ms QRS Dur : 98 ms QT Int : 426 ms P-R-T Axes : 76 82 77 degrees QTcB Int : 435 ms Normal sinus rhythm Normal ECG When compared with ECG of 12-Jun-2024 05:33, No significant change was found Confirmed by ALTAGRACIA WILCOX ([id number]), video tape editor BEHZAD HEDRICK ([id number]) on 07/13/2024 9:36:11 AM Referred By: AMERICO Confirmed By: ALTAGRACIA WILCOX
[2024-07-09 05:53] LABS: Absolute Lymphocyte Count 1.64 X10^3/uL (0.83-4.51); Absolute Neutrophil Count 5.1 X10^3/uL (2.0-7.7); Basophil# 0.03 X10^3/uL; Basophil% 0.4 % (0-1); Eosinophil# 0.29 X10^3/uL; Eosinophils% 3.8 % (0-5); Hematocrit 35.2 % (40-54); Hemoglobin 11.4 g/dL (13.0-16.5); Lymphocyte # 1.64 X10^3/ul (0.83-4.51); Lymphocyte % 21.3 % (19-41); Mean Corp Hgb Conc 32.4 g/dL (32-36); Mean Corpuscular Hgb 28.3 pg (27.0-32.0); Mean Corpuscular Volume 87.3 fL (80-94); Monocyte# 0.63 X10^3/uL; Monocyte% 8.2 % (0-10); NRBC Flagged by Analyzer 0.3 % (0-5); Neutrophil # 5.07 X10^3/uL (2.7-7.7); Neutrophil % 65.9 % (47-70); POSITIVE MORPHOLOGY YES; Platelet Count 344 K/mm3 (150-450); RBC Distribution Width CV 24.7 % (11.6-14.6); RBC Distribution Width SD 76.8 fl (35.1-43.9); Red Blood Count 4.03 M/mm3 (4.6-6.2); White Blood Count 7.7 K/mm3 (4.4-11.0)
[2024-07-09 05:58] LABS: Differential Indicated SCAN CRITERIA MET
[2024-07-09 06:28] LABS: Anion Gap 12 (5-15); BUN 16 mg/dL (4-19); BUN/Creat Ratio 16.7 RATIO (10-20); Calcium,Total 9.2 mg/dL (7.6-11.0); Carbon Dioxide 21.5 mmol/L (21.0-32.0); Chloride 108 mmol/L (98-108); Creatinine, Serum 0.98 mg/dL (0.70-1.20); EST Glomerular Filtration Rate 83 (>60); Estimated Creatinine Clearance 53.27 ml/min (50-250); Glucose 70 mg/dL (70-99); Magnesium 2.3 mg/dL (1.5-2.2); Phosphorus 4.9 mg/dL (2.7-4.5); Potassium 3.8 mmol/L (3.3-5.1); Sodium Level 142 mmol/L (133-145)
--- NOTE | 2024-07-09 06:39 | CON.PCM.SX_ITS ---
Assessment & Plan Assessment/Plan (1) Anemia: QUALIFIERS: Iron deficiency anemia type: chronic blood loss (2) GI bleed: (3) Peripheral arterial disease: PLAN: Plan His lower extremity claudication is much improved since angiogram procedure; no recurrence of symptoms even with his acute anemia. Vascular exam today is stable with palpable pedal pulses, no signs of recurrent stent stenosis/thrombosis. OK to continue to hold Xarelto at this time. Would prefer to continue the Aspirin 81mg daily if possible due to recent stent placement. HPI Consult Data Date of Consult: 07/09/24 HPI Narrative HPI Narrative: LEIGH LOCO, is a 68 M who presented to the [facility] ER after outpatient lab testing demonstrated Hgb 5.4. He has had recent admission for the same May 31- June 13, 2024 at which time he had EGD that showed only hiatal hernia and colonoscopy that showed single bleeding colonic AVM that was treated with heater probe. He had received 2 units PRBC that admission and his Hgb stabilized and he was discharged. His Hgb had remained stable following that admission and he then underwent angiogram on 06/24/24 due to progressive short distance claudication which demonstrated >75% L com/ext iliac artery stenosis treated with angioplasty/stent and total occlusion/thrombosis of prior R iliac stent treated with pharmacomechanical thrombectomy and angioplasty/stent. Due to the unexpected R iliac stent thrombosis (which was not present on CT imaging prior to the angio), he was placed on Xarelto in addition to ASA following the angiogram. [place] it was most likely that the stent had occluded secondary to his acute anemia prior to stent placement. Unfortunately, he has had recurrence of his acute anemia. When he presented in ER his Hgb was 5.3; his prior baseline ranged 10-12 and was 9.5 at the time of his angio procedure 06/24. He does have chronic iron-deficiency anemia; has been taking oral iron supplements and was scheduled to see hematology on an outpatient basis for consideration of IV iron infusion. In the ER, he did have hemoccult positive stool. He is scheduled for EGD today. He received 3 units PRBC yesterday, Hgb is 11.4 this morning. He reports he is feeling much better today. Notably, he reports his legs are feeling significantly improved since the angiogram, he states he has had complete resolution of his prior claudication and R hip pain. He has been walking without limitation. [facility] Medical History Pancreatitis Asthma DVT (deep venous thrombosis) ABLA (acute blood loss anemia) Hepatitis C Severe protein-calorie malnutrition Substance abuse Smoker Opioid dependence Polysubstance abuse Alcohol use disorder Generalized anxiety disorder Major depressive disorder, recurrent severe without psychotic features Dysthymia Hematest positive stools Emphysema lung Nicotine dependence, cigarettes, uncomplicated Iron deficiency anemia Skin cancer, basal cell PAD (peripheral artery disease) Basal cell carcinoma (BCC) Hemorrhoid GERD (gastroesophageal reflux disease) Depression Osteoarthritis Chronic back pain Home Medications ?Medication ?Instructions ?Recorded ?Last Taken ?Type bupropion HCl 300 mg 24 hr tablet, 300 mg PO DAILY ANX IETY 11/23/21 06/24/24 History extended release albuterol sulfate 90 mcg/actuation 2 puff inhalation Q 4H PRN PRN 05/06/23 Unknown Rx aerosol inhaler Shortness Of Breath Or Wheez ing #3 ea food supplemt, lactose-reduced 240 ml PO DAILY PRN SUP PLEMENT 06/13/23 Unknown History (Ensure oral liquid) hydroxyzine HCl 25 mg tablet 25 mg PO BID PRN anxiety 06/13/23 Unknown History aspirin 81 mg tablet,delayed 81 mg PO QDAY heart healt h 02/28/24 06/09/24 History release (Adult Low Dose Aspirin) sertraline 50 mg tablet (Zoloft) 50 mg PO QDAY mental health 02/28/24 06/24/24 History rosuvastatin 20 mg tablet 20 mg PO QDAY cholesterol #3 0 tabs 04/10/24 06/24/24 Rx budesonide 1 mg/2 mL suspension 1 mg (2 mL) inhalation BID 06/10/24 06/24/24 Rx for nebulization breathing #120 mL donepezil 5 mg tablet 5 mg PO QHS memory 06/10/24 06/09/24 History ipratropium 0.5 mg-albuterol 3 mg 3 ml inhalation BID SOB &/OR 06/10/24 06/24/24 History (2.5 mg base)/3 mL nebulization WHEEZING soln omeprazole 40 mg capsule,delayed 40 mg PO DAILY reflux 06/10/24 06/24/24 History release amlodipine 5 mg tablet 5 mg PO DAILY 90 days #90 ta bs 06/13/24 06/24/24 Rx ferrous sulfate 325 mg (65 mg 325 mg PO DAILY #90 tabs 06/13/24 Unknown Rx iron) tablet (Feosol) rivaroxaban 20 mg tablet (Xarelto) 20 mg PO DAILY #30 tabs 06/25/24 Unknown Rx acetaminophen 500 mg tablet 1,000 mg PO Q8 PRN pain Unknown History Allergy/AdvReac Type Severity Reaction Status Date / Time buspirone (From BuSpar) Allergy Mild shaking, Verified 07/07/24 19:03 restless legs sucralfate (From Carafate) Allergy Other Verified 07/07/24 19:03 venom-honey bee (bee venom Allergy Anaphylaxis Verified 07/07/24 19:03 (honey bee)) Family History Mother Diabetes Heart disease Hypertension Thyroid disorder Ulcer Sister Asthma Heart disease Hypertension Cancer multiple myeloma Surgical History History of cholecystectomy S/P peripheral artery angioplasty with stent placement History of colonoscopy (~2018) History of cataract extraction Hx of local excision of skin lesion Hx of endarterectomy History of cholecystectomy (~2002) Social History household members: friend(s) Smoking Status: Former smoker Tobacco: How many years used: 50 Electronic Cigarette Use: not used second hand exposure: No quit status: considering quitting alcohol intake: former details: Sober since 2016. substance use type: other details: Fentanyl, snorted, does have prior IVDA history. Physical Exam Const alert, oriented x3 and no apparent distress General Appearance: cooperative and comfortable HEENT normocephalic, hearing grossly normal bilaterally and external ears normal Eyes General Eye: normal appearance of both eyes Neck General: normal visual inspection and trachea midline Resp normal respiratory effort, no retractions and no use of accessory muscles Effort and Inspection: able to speak in complete sentences; Negative for labored, grunting or stridor Cardio regular rate and regular rhythm Extremity normal to inspection and no clubbing, cyanosis or edema Extremity Narrative: Bilateral pedal pulses are palpable Skin no rashes or lesions noted Trauma: no lacerations or abrasions Neuro oriented x3, CN's II-XII intact bilaterally, moves all extremities and no focal motor deficits Psych mental status grossly normal Appearance: grossly normal Attitude: calm and engaged Activity / Motor Behavior: appropriate eye contact Speech: normal speech Mood & Affect: euthymic mood Lab / Micro Data 07/09/24 04:31 07/09/24 04:31 Labs: Laboratory Results - last 24 hr 07/08/24 08:38: WBC 7.8, RBC 3.74 L, Hgb 10.6 L, Hct 32.1 L, MCV 85.8 D, MCH 28.3, MCHC 33.0 D, RDW Std Deviation 70.3 H, RDW Coeff of Liliane 23.3 H, Plt Count 306, MPV 8.5, Immature Gran % (Auto) 0.400, Neut % (Auto) 65.1, Lymph % (Auto) 23.1, [place] % (Auto) 7.7, Eos % (Auto) 3.4, Baso % (Auto) 0.3, Absolute Neuts (auto) 5.1, Absolute Lymphs (auto) 1.81, Nucleated RBC % 0.3, Anisocytosis 1+, Sodium 138, Potassium 4.1, Chloride 107, Carbon Dioxide 21.0, Anion Gap 10, BUN 19, Creatinine 0.86, Estim Creat Clear Calc 60.71, Est GFR (MDRD) Non-Af 93, B UN/Creatinine Ratio 22.1 H, Glucose 96, Calcium 8.9 07/09/24 04:31: WBC 7.7, RBC 4.03 L, Hgb 11.4 L, Hct 35.2 L, MCV 87.3, MCH 28.3, MCHC 32.4, RDW Std Deviation 76.8 H, RDW Coeff of Liliane 24.7 H, Plt Count 344, MPV 9.0, Immature Gran % (Auto) 0.400, Neut % (Auto) 65.9, Lymph % (Auto) 21.3, [place] % (Auto) 8.2, Eos % (Auto) 3.8, Baso % (Auto) 0.4, Absolute Neuts (auto) 5.1, Absolute Lymphs (auto) 1.64, Nucleated RBC % 0.3, Sodium 142, Potassium 3.8, Chloride 108, Carbon Dioxide 21.5, Anion Gap 12, BUN 16, Creatinine 0.98, Estim Creat Clear Calc 53.27, Est GFR (MDRD) Non-Af 83, BUN/Creatinine Ratio 16.7, Glucose 70, Calcium 9.2, Phosphorus 4.9 H, Magnesium 2.3 H Charges/Coding Visit Charges Inpatient E&M: 76696 Init Hosp L1
[2024-07-09 06:44] LABS: Anisocytosis 3+; Differential Comment SCANNED; Macrocytosis 1+; Microcytosis 2+
[2024-07-09 06:45] LABS: Ovalocyte RARE; Polychromasia 1+
[2024-07-09] MEDS: Budesonide Respules 0.5 MG/2 ML AMPUL.NEB. 1 MG INHALATION (07:02)
[2024-07-09] MEDS: Ipratropium/Albuterol Sulfate 3 ML AMPUL.NEB INHALATION (07:02)
--- NOTE | 2024-07-09 08:20 | NURSING ---
Spoke to patient regarding complaint from last evening that originated from an outside phone call through the belling machine operator and ultimately to the Nursing Life Enrichment Director. Informed patient of the concern that was expressed on his behalf regarding his room door being shut and not being able to eat. Patient denied concerns, at the time of this dicussion, with care being provided and stated that he understood the care plan. Patient did acknowledge that he was hungry and may have been a little grumpy yesterday. This nurse reassured patient that it was ok to be hungry and seek clarification about his care plan if uncertain but also that there had not been any expression from any [facility] staff members that the patient was grumpy. Pramod THOMAS also present for conversation. Offered to contact patient's acquaintance who voiced the concern along with the patient but patient denied need to do so at this time.
--- NOTE | 2024-07-09 08:28 | PCM.PN.HOSP ---
Reason for Visit Reason for Visit: Diagnoses Iron deficiency anemia, unspecified (07/07/24) Anemia, unspecified (07/07/24) Peripheral vascular disease, unspecified (07/07/24) Gastrointestinal hemorrhage, unspecified (07/07/24) Subjective Subjective Patient hemoglobin up to 11.4. Patient was also seen in consultation by Dr. Tobin with GI plans for patient to undergo endoscopic evaluation Objective Data Objective Data Vital Signs: Vital Signs Temp Pulse Resp BP Pulse Ox O2 Del Method 97.8 F 67 16 150/81 H 98 Room Air 07/08/24 20:54 07/09/24 07:03 07/09/24 07:03 07/08/24 20:54 07/09/24 07:03 07/09/24 07:03 Oxygen Delivery Method Room Air Weight: 53.7 kg Body Mass Index (BMI) 16.9 Intake & Output: Intake and Output for Last 24 Hours 07/07/24 07/08/24 07/09/24 23:59 23:59 23:59 Intake Total 100 / 100 1570 / 1570 Output Total 2550 / 2550 Balance 100 / 100 -980 / -980 Lab / Micro Data 07/09/24 04:31 07/09/24 04:31 Labs: Laboratory Results - last 24 hr 07/08/24 08:38: WBC 7.8, RBC 3.74 L, Hgb 10.6 L, Hct 32.1 L, MCV 85.8 D, MCH 28.3, MCHC 33.0 D, RDW Std Deviation 70.3 H, RDW Coeff of Liliane 23.3 H, Plt Count 306, MPV 8.5, Immature Gran % (Auto) 0.400, Neut % (Auto) 65.1, Lymph % (Auto) 23.1, [place] % (Auto) 7.7, Eos % (Auto) 3.4, Baso % (Auto) 0.3, Absolute Neuts (auto) 5.1, Absolute Lymphs (auto) 1.81, Nucleated RBC % 0.3, Anisocytosis 1+, Sodium 138, Potassium 4.1, Chloride 107, Carbon Dioxide 21.0, Anion Gap 10, BUN 19, Creatinine 0.86, Estim Creat Clear Calc 60.71, Est GFR (MDRD) Non-Af 93, BUN/Creatinine Ratio 22.1 H, Glucose 96, Calcium 8.9 05/29/25 04:31: WBC 7.7, RBC 4.03 L, Hgb 11.4 L, Hct 35.2 L, MCV 87.3, MCH 28.3, MCHC 32.4, RDW Std Deviation 76.8 H, RDW Coeff of Liliane 24.7 H, Plt Count 344, MPV 9.0, Immature Gran % (Auto) 0.400, Neut % (Auto) 65.9, Lymph % (Auto) 21.3, [place] % (Auto) 8.2, Eos % (Auto) 3.8, Baso % (Auto) 0.4, Absolute Neuts (auto) 5.1, Absolute Lymphs (auto) 1.64, Nucleated RBC % 0.3, Differential Comment SCANNED, Polychromasia 1+, Anisocytosis 3+, Microcytosis 2+, Macrocytosis 1+, Ovalocytes RARE, Sodium 142, Potassium 3.8, Chloride 108, Carbon Dioxide 21.5, Anion Gap 12, BUN 16, Creatinine 0.98, Estim Creat Clear Calc 53.27, Est GFR (MDRD) Non-Af 83, BUN/Creatinine Ratio 16.7, Glucose 70, Calcium 9.2, Phosphorus 4.9 H, Magnesium 2.3 H Micro: Microbiology 07/07/24 19:46 Stool Stool Occult Blood (MARCIA) - Final Occult Blood Positive Physical Exam Narrative General: Alert, Oriented x3, Cooperative, No apparent distress, pale HEENT: Atraumatic, PERRLA, EOMI, Normocephalic Oral: Moist Mucosa Neck: Supple, No JVD Lungs: Diminished, Normal air movement, No rhonchi, No wheeze, No rales Cardiovascular: Regular rate, Regular Rhythm, Normal S1, Normal S2, No murmurs Abdomen: Soft, Non Tender, Non-Distended, No Hepato-splenomegaly Extremities: No edema, Capillary Refill Less than 3 Seconds Skin: No rashes, No breakdown Musculoskeletal: No Tenderness to Palpation of Joints or Extremities Neurological: No focal neurological deficits, Motor Exam 5/5 strength throughout, Sensory exam intact to light touch and pain Psych/Mental Status: Normal Affect, Appropriate Assessment & Plan Assessment/Plan (1) Anemia: QUALIFIERS: Iron deficiency anemia type: chronic blood loss PLAN: Plan Patient is a 68-year-old gentleman who was sent to the ED by the primary care physician with hemoglobin of 5.4 1. Acute symptomatic anemia ? Patient presented with hemoglobin of 5.4. Patient was transfused with 3 unit PRBC. Patient had undergone EGD and colonoscopy on 07/08/2024 was found to have medium size hiatal hernia as well as a single bleeding colonic angio dysplastic lesion which was treated with a monopolar probe.. Had a discussion with patient's sister regarding patient persistent anemia did express the fact that patient is on systemic anticoagulation with Xarelto as well as aspirin which could be contributing. Patient will however benefit from hematology consult. Did order iron infusion ? 07/09/2024Patient hemoglobin up to 11.4. Patient was also seen in consultation by Dr. Tobin with GI plans for patient to undergo endoscopic evaluation 2. Peripheral arterial disease ? With history of bilateral lower extremity percutaneous angioplasty with stent placement. Patient is on antiplatelet therapy with aspirin as well as systemic anticoagulation with Xarelto held given patient presentation. Consult was placed to vascular surgery to advise on therapy given patient ? 07/09/2024; Case was discussed with vascular surgery okay to take patient off Xarelto but maintain on aspirin given recent stent placement 3. Hypertension ? Blood pressure controlled, home medications continued with dose adjustment as needed 4. . Dyslipidemia ?Patient is also on rosuvastatin did continue 5. COPD ? Currently not in exacerbation 6. Tobacco dependence ? Counseled on cessation, offered nicotine patch for tobacco cravings 7. Chronic hep C ? Patient to follow-up with PCP for subsequent care 8. Depression with anxiety ? Patient is on sertraline as well as hydroxyzine as needed 9. GERD ? Patient is on omeprazole 10. DVT prophylaxis ? Patient was on Xarelto held given patient presentation Charges/Coding Visit Charges Inpatient E&M: 62855 Subs Hosp L2
--- NOTE | 2024-07-09 12:11 | PCM.PRE.AN2 ---
ASA Classification* ASA Classification ASA Classification: 3 (Acute anemia, had EGD already on 07/08. Peripheral artery dz, had stents placed. HTN, HLD, COPD, Smoker, Hep C, GERD) Assessment & Plan Anesthesia* Anesthesia Assessment Anesthesia Assessment: Discussed sedation and/or anesthesia options, risks, benefits, and alternatives with patient/parents/legal guardian/POA. Questions invited. The patient/parents/legal guardian/POA seems to understand and agrees to proceed with anesthesia plan. Reviewed the physical assessment, medical history, allergy history and patient home medications list prior to surgery/procedure/anesthetic and documented any changes. Performed airway and anesthesia risk assessments. Anesthesia Type Anesthesia Type: General History Source History Obtained from:: Patient and Chart Anesthesia Focused Assessment* Temperature: 97.8 F Pulse Rate: 67 Blood Pressure: 150/81 Respiratory Rate: 16 Pulse Ox: 98 Oxygen Delivery Method: Room Air Airway Assessment Mouth opens: >3 cm Mallampati Score: III Teeth Condition: Missing Neck Range of motion (ROM): Full ROM Focused Labs Anesthesia Preop lab: CBC WBC 7.7 K/mm3 (4.4-11.0) 07/09/24 04:31 07/09/24 RBC 4.03 M/mm3 (4.6-6.2) L 07/09/24 04:31 07/09/24 Hgb 11.4 g/dL (13.0-16.5) L 07/09/24 04:31 07/09/24 Hct 35.2 % (40-54) L 07/09/24 04:31 07/09/24 Plt Count 344 K/mm3 (150-450) 07/09/24 04:31 07/09/24 CHEMISTRY Potassium 3.8 mmol/L (3.3-5.1) 07/09/24 04:07/09/24 Sodium 142 mmol/L (133-145) 07/09/24 04:07/09/24 Magnesium 2.3 mg/dL (1.5-2.2) H 07/09/24 04:31 07/09/24 Phosphorus 4.9 mg/dL (2.7-4.5) H 07/09/24 04:31 07/09/24 BUN 16 mg/dL (4-19) 07/09/24 04:31 07/09/24 Creatinine 0.98 mg/dL (0.70-1.20) 07/09/24 04:31 07/09/24 Glucose 70 mg/dL (70-99) 07/09/24 04:31 07/09/24 TSH 3.22 uIU/mL (0.358-3.74) 11/26/22 09:26 11/26/22 COAG PT 14.3 SECONDS (11.7-14.9) 07/07/24 18:00 07/07/24 Pre-Assessment Diagnosis/Proposed Procedure Planned Operative Procedure(s): EGD Anesthesia History Anesthesia History - sap architect: Anesthesia History - sap architect Hx Hospitalization Yes: 12/201705/19/20 22:24 Any Problems With Anesthesia No 07/07/24 23:50 Cholinesterase deficiency No 07/07/24 23:50 You/Your Family Experience No 07/07/24 23:50 fever (hyperthermia) with Relationship Recent Exposure to Contagious No 07/07/24 23:50 Disease Does patient have nerve No 07/07/24 23:50 stimulator Patient instructed to have device shut off --Does patient have Pacemaker or ICD? When Was Last Pacemaker Check QUESTION #4 FULL TEXT: You/Your Family Experience fever (hyperthermia) with Anesthesia Last Oral Intake Last Oral intake: Last Oral Intake NPO since Meds taken in AM with sips of water? Meds patient instructed to take am of surgery PONV PONV - sap architect: PONV - sap architect Female HX of Motion Sickness HX of N/V After Surgery Non-Smoker Duration of Surgery greater than 60 minutes Number of Risk Factors PONV Score Height & Weight Height & Weight: Anesthesia: Height & Weight Height 5 ft 10 in 07/08/24 10:45 Weight: 53.7 kg 07/08/24 10:45 Body Mass Index (BMI) 16.9 07/07/24 23:35 Respiratory Assessment Respiratory Assessment - sap architect: Respiratory Tract Infection Hx - sap architect Hx Respiratory Tract Infection No 07/07/24 23:50 STOP Sleep Apnea STOP Sleep Apnea - sap architect: STOP Sleep Apnea - sap architect Hx Hypertension No 07/07/24 23:37 Hx Sleep Apnea No 07/07/24 23:37 CPAP No 06/13/24 09:30 BIPAP Do you snore loudly (louder No 07/07/24 23:37 than talking or can be heard Do you often feel tired/ Yes 07/07/24 23:37 fatigued/ sleepy during daytime? Has anyone observed you stop No 07/07/24 23:37 breathing during sleep? STOP Results Negative 07/07/24 23:37 QUESTION #5 FULL TEXT : Do you snore loudly (louder than talking or can be heard through closed doors)? 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 Specify any problems Hx of Preganancy in last 3 N/A 07/07/24 23:37 Months Nurse Filling Out Transfusion [id number] 07/07/24 23:37 & Questions: Date: 07/07/24 07/07/24 23:37 Time: 23:38 07/07/24 23:37 Patient unable to answer at this time (ie. confused, unrespo /Reproduction History /Reproductive History - sap architect: /Reproductive Hx- sap architect Hx Now Gestational Age (in weeks): EDC: Hx Hx Para Hx Section SAB No 06/12/24 09:24 Active Medications Active Medications: Current Medications Generic Name Dose Route Start Last Admin Trade Name Freq PRN Reason Stop Dose Admin Acetaminophen 1,000 mg 07/08/24 09:23 07/08/24 21:11 Acetaminophen 500 Mg Tablet PO 1,000 mg Q8H PRN Administration pain 1-10 Albuterol Sulfate 2.5 mg 07/07/24 23:29 07/08/24 16:16 Albuterol 2.5 Mg/3 Ml Vial.Neb. INHALATION 2.5 mg Q4H PRN PRN Administration Shortness Of Breath/Wheezing Albuterol/Ipratropium 3 ml 07/08/24 10:00 07/09/24 07:02 Ipratropium/Albuterol Sulfate 3 Ml Ampul.Neb INHALATION 3 ml BID.RT BEBE Administration Amlodipine Besylate 5 mg 07/08/24 10:00 07/09/24 10:13 Amlodipine 5 Mg Tablet PO Not Given DAILY [facility] Protocol Atorvastatin Calcium 40 mg 07/08/24 22:00 07/08/24 21:00 Atorvastatin Calcium 40 Mg Tablet PO 40 mg 2200 BEBE Administration Budesonide 1 mg 07/08/24 10:00 07/09/24 07:02 Budesonide Respules 0.5 Mg/2 Ml Ampul.Neb. INHALATION 0.5 mg BID.RT BEBE Administration Bupropion HCl 300 mg 07/08/24 10:00 07/09/24 09:28 Bupropion (Xl) 300 Mg Tablet.Xl PO Not Given DAILY [facility] Donepezil HCl 5 mg 07/08/24 22:00 07/08/24 21:00 Donepezil Hcl 5 Mg Tablet PO 5 mg QHS BEBE Administration Ferrous Sulfate 325 mg 07/08/24 12:00 07/09/24 10:14 Ferrous Sulfate 325 Mg Tablet PO Not Given DAILY@1200 [facility] Hydroxyzine Pamoate 25 mg 07/07/24 23:29 Hydroxyzine Lois 25 Mg Capsule PO BID PRN PRN anxiety Sodium Chloride 250 mls @ 15 mls/hr 07/07/24 23:29 IV .[id number] PRN Saline Flush Lactated Ringer's 1,000 mls @ 15 mls/hr 07/09/24 11:45 IV .Q48H [facility] Nutritional Formula (Lactose Free) 120 ml 07/08/24 08:00 07/09/24 10:14 Ensure Plus High Protein 120 Ml Liquid PO Not Given TIDCM [facility] Nutritional Formula (Lactose Free) 240 ml 07/08/24 09:23 Ensure Clear 120 Ml Liquid PO DAILY PRN SUPPLEMENT Pantoprazole Sodium 40 mg 05/28/25 10:00 07/09/24 09:28 Pantoprazole Sodium 40 Mg Tablet PO Not Given DAILY BEBE Sertraline HCl 50 mg 07/08/24 10:00 07/09/24 09:28 Sertraline 50 Mg Tablet PO Not Given DAILY BEBE Sodium Chloride 10 - 40 ml 07/07/24 23:29 0.9% Saline Lock 10 Ml Syringe IV UD PRN SALINE FLUSH PFSH Medical History Pancreatitis Asthma DVT (deep venous thrombosis) ABLA (acute blood loss anemia) Hepatitis C Severe protein-calorie malnutrition Substance abuse Smoker Opioid dependence Polysubstance abuse Alcohol use disorder Generalized anxiety disorder Major depressive disorder, recurrent severe without psychotic features Dysthymia Hematest positive stools Emphysema lung Nicotine dependence, cigarettes, uncomplicated Iron deficiency anemia Skin cancer, basal cell PAD (peripheral artery disease) Basal cell carcinoma (BCC) Hemorrhoid GERD (gastroesophageal reflux disease) Depression Osteoarthritis Chronic back pain Home Medications ?Medication ?Instructions ?Recorded ?Last Taken ?Type bupropion HCl 300 mg 24 hr tablet, 300 mg PO DAILY ANXIETY 11/23/21 06/24/24 History extended release albuterol sulfate 90 mcg/actuation 2 puff inhalation Q4H PRN PRN 05/06/23 Unknown Rx aerosol inhaler Shortness Of Breath Or Wheezing #3 ea food supplemt, lactose-reduced 240 ml PO DAILY PRN SUPPLEMENT 06/13/23 Unknown History (Ensure oral liquid) hydroxyzine HCl 25 mg tablet 25 mg PO BID PRN anxiety 06/13/23 Unknown History aspirin 81 mg tablet,delayed 81 mg PO QDAY heart health 02/28/24 06/09/24 History release (Adult Low Dose Aspirin) sertraline 50 mg tablet (Zoloft) 50 mg PO QDAY mental health 02/28/24 06/24/24 History rosuvastatin 20 mg tablet 20 mg PO QDAY cholesterol #30 tabs 04/10/24 06/24/24 Rx budesonide 1 mg/2 mL suspension 1 mg (2 mL) inhalation BID 06/10/24 06/24/24 Rx for nebulization breathing #120 mL donepezil 5 mg tablet 5 mg PO QHS memory 06/10/24 06/09/24 History ipratropium 0.5 mg-albuterol 3 mg 3 ml inhalation BID SOB &/OR 06/10/24 06/24/24 History (2.5 mg base)/3 mL nebulization WHEEZING soln omeprazole 40 mg capsule,delayed 40 mg PO DAILY reflux 06/10/24 06/24/24 History release amlodipine 5 mg tablet 5 mg PO DAILY 90 days #90 tabs 06/13/24 06/24/24 Rx ferrous sulfate 325 mg (65 mg 325 mg PO DAILY #90 tabs 06/13/24 Unknown Rx iron) tablet (Feosol) rivaroxaban 20 mg tablet (Xarelto) 20 mg PO DAILY #30 tabs 06/25/24 Unknown Rx acetaminophen 500 mg tablet 1,000 mg PO Q8 PRN pain 07/07/24 Unknown History Allergy/AdvReac Type Severity Reaction Status Date / Time buspirone (From BuSpar) Allergy Mild shaking, Verified 07/07/24 19:03 restless legs sucralfate (From Carafate) Allergy Other Verified 07/07/24 19:03 venom-honey bee (bee venom Allergy Anaphylaxis Verified 07/07/24 19:03 (honey bee)) Family History Mother Diabetes Heart disease Hypertension Thyroid disorder Ulcer Sister Asthma Heart disease Hypertension Cancer multiple myeloma Surgical History History of cholecystectomy S/P peripheral artery angioplasty with stent placement History of colonoscopy (~2018) History of cataract extraction Hx of local excision of skin lesion Hx of endarterectomy History of cholecystectomy (~2002) Social History household members: friend(s) Smoking Status: Former smoker Tobacco: How many years used: 50 Electronic Cigarette Use: not used second hand exposure: No quit status: considering quitting alcohol intake: former details: Sober since 2015. substance use type: other details: Fentanyl, snorted, does have prior IVDA history. Review of Systems (Anesthesia) ROS Narrative System reviewed and no additional complaints, except as documented.
--- NOTE | 2024-07-09 12:28 | PCM.PN.BLA ---
Progress Note Patient has been n.p.o. for upper endoscopy. Physical Exam Narrative General: Alert, Oriented x3, Cooperative, No apparent distress, pale HEENT: Atraumatic, PERRLA, EOMI, Normocephalic Oral: Moist Mucosa Neck: Supple, No JVD Lungs: Diminished, Normal air movement, No rhonchi, No wheeze, No rales Cardiovascular: Regular rate, Regular Rhythm, Normal S1, Normal S2, No murmurs Abdomen: Soft, Non Tender, Non-Distended, No Hepato-splenomegaly Extremities: No edema, Capillary Refill Less than 3 Seconds Skin: No rashes, No breakdown Musculoskeletal: No Tenderness to Palpation of Joints or Extremities Neurological: No focal neurological deficits, Motor Exam 5/5 strength throughout, Sensory exam intact to light touch and pain Psych/Mental Status: Normal Affect, Appropriate Assessment & Plan Assessment/Plan (1) Peripheral arterial disease: (2) Claudication, intermittent: (3) Iron deficiency anemia: QUALIFIERS: Iron deficiency anemia type: unspecified iron deficiency Qualified Code(s): D50.9 - Iron deficiency anemia, unspecified PLAN: Plan Patient is a 68-year-old gentleman admitted with progressive generalized weakness found to be anemic with hemoglobin of 5.3 Acute symptomatic anemia ? Patient presented with hemoglobin of 5.3. Iron studies did show severe iron deficiency anemia with iron level of 12 and ferritin of 10. Per patient his last scope was more than 10 years prior. He will need to endoscopic evaluation with an push enteroscopy and repeat capsule study. N.p.o. postmidnight. Patient to have upper endoscopy. All questions were answered prior to the procedure. Visit Charges Inpatient E&M: 36412 [facility] Hosp L2
--- NOTE | 2024-07-09 12:45 | EGD_PTH ---
PATIENT: LEIGH WALTERS LOC: MS3 U#:[id number] AGE/SX: 68/M ROOM: [facility] [place] RE07/07/[address]: Dr. Rocco Cruz MD : 1955 BED: 1 DIS: 07/09/2024 SPEC #: [id number] RECD: 07/09/24 18:17 STATUS: OSMAN REQ #: [id number] RACHEL: 07/09/24 12:[address]: Sahil Tobin DEPT: SURGICAL PATHOLOGY RECD BY: Yazan Byers ENTERED: 07/10/24 08:35 SP TYPE: EGD BIOPSY OTHR DR: MD Dr. Rocco Heard MD Dr. Eric Turney, MD Dr. Joseph Prah, MD Dr. Joel Simmons, MD Dr. Mansour Isckarus, MD Dr. Nicholas F Kotsonis, MD Dr. Robert Field, MD Dr. Ryan Jin, MD Dr. Roger Macklis, MD Dr. Steve Walston, DO Rachel Edgar, CHEL-C [employer] Bird Tissues: A - Duodenum, NOS Procedures: Immunohistochemical Stains Surgery Specimen Level IV IHC Stain ADDITIONAL HEADER OPERATION: EGD with polypectomy PRE-OP DIAGNOSIS: Peripheral arterial disease, claudication, intermittent, iron deficiency anemia TISSUE SUBMITTED: A- Duodenal polyp MICROSCOPIC DIAGNOSIS A. Small bowel, duodenum, polyp, biopsy: * Adenoma (low grade dysplasia) - see note. * Note: IHC for p53 is wild-type. Ki67 is increased in the basal portions of the glands (not at the surface). These findings support the diagnosis. MICROSCOPIC DESCRIPTION Slides are reviewed. All matched controls reacted appropriately. These tests were developed and their performance characteristics determined by [facility]. They may not have been cleared or approved by the U.S. Food and Drug Administration. The FDA has determined that such clearance or approval is not necessary.? The above immunohistochemical/dualISH?markers are ordered and reviewed by the Pathologist. GROSS DESCRIPTION A. Received in formalin in a container labeled with the patient's name, date of , and duodenal polyp is a previously disrupted, 0.5 x 0.4 x 0.3 cm stanley-pink polypoid piece of mucosal tissue. The resection margin is inked black, and it is bisected. Submitted entirely in A1. [facility] 07-10-2024 CPT:[id number]
--- NOTE | 2024-07-09 12:47 | PCM.POST.ANE ---
Anesthesia: Postop Eval I Current Vital Signs Temperature: 97 F Pulse Rate: 77 Blood Pressure: 137/80 Respiratory Rate: 16 Pulse Ox: 100 Oxygen Delivery Method: Room Air Assessment Airway patent: Yes Spontaneous unlabored respirations: Yes Mental status: Awake and Calm nausea: No Vomiting: No Anesthesia Complication: No Fluid Hydration Crystalloid volume administer (ml): 500 Total IV fluid infused: 500 Progress Note Anesthesia document: Postop Eval 1 completed: No
--- NOTE | 2024-07-09 12:52 | POSTOPAN2_ITS ---
Anesthesia Postop Eval I Sum Postop Eval Completion status Anesthesia document: Postop Eval 1 completed: No Anesthesia Postop Eval I Summary Anesthesia Postop Eval I Summary: Anesthesia Postop Eval I: Assessment Summary Airway patent Yes 07/09/24 12:47 BILLING MACHINE OPERATOR.MDOT Spontaneous unlabored Yes 07/09/24 12:47 BILLING MACHINE OPERATOR.MDOT respirations Mental status Awake,Calm 07/09/24 12:47 BILLING MACHINE OPERATOR.MDOT nausea No 07/09/24 12:47 BILLING MACHINE OPERATOR.MDOT Vomiting No 07/09/24 12:47 BILLING MACHINE OPERATOR.MDOT Anesthesia Postop Eval I: Fluid Summary Crystalloid volume administer 500 07/09/24 12:47 BILLING MACHINE OPERATOR.MDOT (ml) Colloids volume administered ( ml) Blood Product volume administered (ml) Total IV fluid infused 500 07/09/24 12:47 BILLING MACHINE OPERATOR.MDOT Anesthesia Postop Eval I: Summary Notes Anesthesia Complication No 07/09/24 12:47 BILLING MACHINE OPERATOR.MDOT Anesthesia Complication Comment: Post-operative progress note Anesthesia: Postop Eval II Evaluation Mental status: Awake and Calm Pain Level: 0 nausea: No Vomiting: No Complications Anesthesia Complication: No
--- NOTE | 2024-07-09 12:52 | PCM.POSTANE2 ---
Anesthesia Postop Eval I Sum Postop Eval Completion status Anesthesia document: Postop Eval 1 completed: No Anesthesia Postop Eval I Summary Anesthesia Postop Eval I Summary: Anesthesia Postop Eval I: Assessment Summary Airway patent Yes 07/09/24 12:47 DOG [email or web address] Spontaneous unlabored Yes 07/09/24 12:47 DOG BREEDER.MDOT respirations Mental status Awake,Calm 07/09/24 12:47 DOG BREEDER.MDOT nausea No 07/09/24 12:47 DOG BREEDER.MDOT Vomiting No 07/09/24 12:47 DOG BREEDER.MDOT Anesthesia Postop Eval I: Fluid Summary Crystalloid volume administer 500 07/09/24 12:47 DOG BREEDER.MDOT (ml) Colloids volume administered ( ml) Blood Product volume administered (ml) Total IV fluid infused 500 07/09/24 12:47 DOG BREEDER.MDOT Anesthesia Postop Eval I: Summary Notes Anesthesia Complication No 07/09/24 12:47 DOG BREEDER.MDOT Anesthesia Complication Comment: Post-operative progress note Anesthesia: Postop Eval II Evaluation Mental status: Awake and Calm Pain Level: 0 nausea: No Vomiting: No Complications Anesthesia Complication: No
--- NOTE | 2024-07-09 12:53 | OP.EGD_ITS ---
Patient Name: Franki Manzo Procedure Date: 07/09/2024 12:28 PM Date of : 1955 Age: 68 Procedure: Upper GI endoscopy Indications: Iron deficiency anemia, Melena, Recent gastrointestinal bleeding, Suspected upper gastrointestinal bleeding, Suspected upper gastrointestinal bleeding in patient with chronic blood loss Providers: Sahil Tobin DO Medicines: Monitored Anesthesia Care Patient Profile: This is a 68 year old male. Refer to note in patient chart for documentation of history and physical. Patient has symptoms. Complications: No immediate complications. Procedure: Pre-Anesthesia Assessment: - Prior to the procedure, a History and Physical was performed, and patient medications and allergies were reviewed. The patient is competent. The risks and benefits of the procedure and the sedation options and risks were discussed with the patient. All questions were answered and informed consent was obtained. Patient identification and proposed procedure were verified by the physician in the pre-procedure area. Mental Status Examination: alert and oriented. Airway Examination: normal oropharyngeal airway and neck mobility. Respiratory Examination: clear to auscultation. CV Examination: normal. Prophylactic Antibiotics: The patient does not require prophylactic antibiotics. Prior Anticoagulants: The patient has taken no anticoagulant or antiplatelet agents except for NSAID medication. ASA Grade Assessment: II - A patient with mild systemic disease. After reviewing the risks and benefits, the patient was deemed in satisfactory condition to undergo the procedure. The anesthesia plan was to use monitored anesthesia care (MAC). Immediately prior to administration of medications, the patient was re-assessed for adequacy to receive sedatives. The heart rate, respiratory rate, oxygen saturations, blood pressure, adequacy of pulmonary ventilation, and response to care were monitored throughout the procedure. The physical status of the patient was re-assessed after the procedure. After obtaining informed consent, the endoscope was passed under direct vision. Throughout the procedure, the patient's blood pressure, pulse, and oxygen saturations were monitored continuously. The Endoscope was introduced through the mouth, and advanced to the jejunum. Small bowel enteroscopy was deemed necessary. The upper GI endoscopy was accomplished without difficulty. The patient tolerated the procedure well. Scope In: 12:37:01 PM Scope Out: 12:45:08 PM Total Procedure Duration Time 0 hours 8 minutes 7 seconds Findings: No gross lesions were noted in the entire esophagus. A large hiatal hernia was present. A single 14 mm sessile polyp with bleeding was found in the fourth portion of the duodenum. The polyp was removed with a hot snare. Resection and retrieval were complete. Verification of patient identification for the specimen was done. Estimated blood loss was minimal. Impression: - No gross lesions in the entire esophagus. - Large hiatal hernia. - A single duodenal polyp. Resected and retrieved. Recommendation: - [facility]. - Resume previous diet. - Continue present medications. - Await pathology results. Procedure Code(s): --- Professional --- 33000, Small intestinal endoscopy, enteroscopy beyond second portion of duodenum, not including ileum; with removal of tumor(s), polyp(s), or other lesion(s) by snare technique CPT copyright 2021 [employer]. All rights reserved. The codes documented in this report are preliminary and upon support worker review may be revised to meet current compliance requirements. Sahil Tobin DO 07/09/2024 12:53:26 PM This report has been signed electronically. Number of Addenda: 0 Note Initiated On: 07/09/2024 12:28 PM
--- NOTE | 2024-07-09 12:54 | OP.CCLET_ITS ---
07/09/2024 Nelda Dobson Re : Upper GI endoscopy procedure for Franki Manzo Dear Ismael This procedure was performed on June. My impressions and recommendations are as follows: Impressions : - No gross lesions in the entire esophagus. - Large hiatal hernia. - A single duodenal polyp. Resected and retrieved. Recommendations : - [facility] to [facility]. - Resume previous diet. - Continue present medications. - Await pathology results. My findings are described in the full procedure note, which is enclosed. If I can be of further assistance, please feel free to contact me at . Sincerely, Sahil Tobin, 07/09/2024 12:53:26 PM This report has been signed electronically.
--- NOTE | 2024-07-09 13:29 | PCM.DC.SUM ---
Providers Date of Admission: 07/07/24 Date of Discharge: 07/09/24 Primary Care Physician: NIMA Dobson Consultations 07/07/24 23:29 Consult: Gastroenterology Routine Consulting Provider: [facility] Reason for Consult: GI bleed EMERGENT Consult: No Notified: Yes Date Notified: 07/08/24 Time Notified: 06:26 Method of Notification: Text 07/08/24 09:24 Consult: Oncology/Hematology Routine Consulting Provider: [facility] ([facility]) Reason for Consult: anemia EMERGENT Consult: No Notified: Yes Date Notified: 07/08/24 Time Notified: 09:25 Method of Notification: Answering Service Consult: Vascular Surgery Routine Consulting Provider: Aguilar Phan Reason for Consult: PAD EMERGENT Consult: No Notified: Yes Date Notified: 07/08/24 Time Notified: 10:14 Method of Notification: Verbal Reason For Visit: GI BLEED Diagnosis Discharge Diagnosis (1) Peripheral arterial disease: Status: Acute Code(s): I73.9 - Peripheral vascular disease, unspecified (2) Claudication, intermittent: Status: Acute Code(s): I73.9 - Peripheral vascular disease, unspecified (3) Iron deficiency anemia: Status: Chronic Code(s): D50.9 - Iron deficiency anemia, unspecified Qualifiers: Iron deficiency anemia type: unspecified iron deficiency Qualified Code(s): D50.9 - Iron deficiency anemia, unspecified Plan Patient is a 68-year-old gentleman who was sent to the ED by the primary care physician with hemoglobin of 5.4 1. Acute symptomatic anemia ? Patient presented with hemoglobin of 5.4. Patient was transfused with 3 unit PRBC. Patient had undergone EGD and colonoscopy on 07/08/2024 was found to have medium size hiatal hernia as well as a single bleeding colonic angio dysplastic lesion which was treated with a monopolar probe.. Had a discussion with patient's sister regarding patient persistent anemia did express the fact that patient is on systemic anticoagulation with Xarelto as well as aspirin which could be contributing. Patient will however benefit from hematology consult. Did order iron infusion ? 07/09/2024Patient hemoglobin up to 11.4. Patient was also seen in consultation by Dr. Tobin with GI plans for patient to undergo endoscopic evaluation ? Patient EGD did show - No gross lesions in the entire esophagus. - Large hiatal hernia. - A single duodenal polyp. Resected and retrieved. 2. Peripheral arterial disease ? With history of bilateral lower extremity percutaneous angioplasty with stent placement. Patient is on antiplatelet therapy with aspirin as well as systemic anticoagulation with Xarelto held given patient presentation. Consult was placed to vascular surgery to advise on therapy given patient ? 07/09/2024; Case was discussed with vascular surgery okay to take patient off Xarelto but maintain on aspirin given recent stent placement 3. Hypertension ? Blood pressure controlled, home medications continued with dose adjustment as needed 4. . Dyslipidemia ?Patient is also on rosuvastatin did continue 5. COPD ? Currently not in exacerbation 6. Tobacco dependence ? Counseled on cessation, offered nicotine patch for tobacco cravings 7. Chronic hep C ? Patient to follow-up with PCP for subsequent care 8. Depression with anxiety ? Patient is on sertraline as well as hydroxyzine as needed 9. GERD ? Patient is on omeprazole 10. DVT prophylaxis ? Patient was on Xarelto held given patient presentation Medications at Discharge Home Medications bupropion HCl 300 mg 24 hr tablet, extended release 300 mg PO DAILY ANXIETY 11/23/21 albuterol sulfate 90 mcg/actuation aerosol inhaler 2 puff inhalation Q4H PRN PRN Shortness Of Breath Or Wheezing #3 ea 05/06/23 food supplemt, lactose-reduced (Ensure oral liquid) 240 ml PO DAILY PRN SUPPLEMENT 06/13/23 hydroxyzine HCl 25 mg tablet 25 mg PO BID PRN anxiety 06/13/23 aspirin 81 mg tablet,delayed release (Adult Low Dose Aspirin) 81 mg PO QDAY heart health 02/28/24 sertraline 50 mg tablet (Zoloft) 50 mg PO QDAY mental health 02/28/24 rosuvastatin 20 mg tablet 20 mg PO QDAY cholesterol #30 tabs 04/10/24 budesonide 1 mg/2 mL suspension for nebulization 1 mg (2 mL) inhalation BID breathing #120 mL 06/10/24 donepezil 5 mg tablet 5 mg PO QHS memory 06/10/24 ipratropium 0.5 mg-albuterol 3 mg (2.5 mg base)/3 mL nebulization soln 3 ml inhalation BID SOB &/OR WHEEZING 06/10/24 omeprazole 40 mg capsule,delayed release 40 mg PO DAILY reflux 06/10/24 amlodipine 5 mg tablet 5 mg PO DAILY 90 days #90 tabs 06/13/24 ferrous sulfate 325 mg (65 mg iron) tablet (Feosol) 325 mg PO DAILY #90 tabs 06/13/24 acetaminophen 500 mg tablet 1,000 mg PO Q8 PRN pain 07/07/24 Hospital Course Summary of Care Provided Minutes Spent on Discharge: 35 Physical Exam Narrative GENERAL: cooperative HEENT: Atraumatic; normocephalic EYES; Anicteric, Normal Conjunctiva NECK; supple, normal thyroid, RESPIRATORY: Diminished to auscultation CARDIOVASCULAR: Regular S1 S2, GI: soft, normoactive bowel sounds, : No Renal angle tenderness; EXTREMITIES: No edema, no clubbing, MUSCULOSKELETAL: no muscle wasting NEURO: Awake; no lateralizing signs. SKIN: No Rash PSYCH; Flat affect Weight / BMI Weight Weight: 53.7 kg Body Mass Index (BMI) 16.9 ABG / Lab / Microbiology Data 07/09/24 04:31 07/09/24 04:31 Laboratory: Laboratory Results - last 24 hr 07/09/24 04:31: WBC 7.7, RBC 4.03 L, Hgb 11.4 L, Hct 35.2 L, MCV 87.3, MCH 28.3, MCHC 32.4, RDW Std Deviation 76.8 H, RDW Coeff of Liliane 24.7 H, Plt Count 344, MPV 9.0, Immature Gran % (Auto) 0.400, Neut % (Auto) 65.9, Lymph % (Auto) 21.3, Beckham % (Auto) 8.2, Eos % (Auto) 3.8, Baso % (Auto) 0.4, Absolute Neuts (auto) 5.1, Absolute Lymphs (auto) 1.64, Nucleated RBC % 0.3, Differential Comment SCANNED, Polychromasia 1+, Anisocytosis 3+, Microcytosis 2+, Macrocytosis 1+, Ovalocytes RARE, Sodium 142, Potassium 3.8, Chloride 108, Carbon Dioxide 21.5, Anion Gap 12, BUN 16, Creatinine 0.98, Estim Creat Clear Calc 53.27, Est GFR (MDRD) Non-Af 83, BUN/Creatinine Ratio 16.7, Glucose 70, Calcium 9.2, Phosphorus 4.9 H, Magnesium 2.3 H Microbiology: Microbiology 07/07/24 19:46 Stool Stool Occult Blood (MARCIA) - Final Occult Blood Positive D/C Instructions Discharge Diet: No restrictions Discharge Activity: Return to Normal Activity Call your doctor if you observe: Fever of 101 or Higher, Shortness of breath, Fainting spells and Chest pain DC O2, CPAP, BIPAP Needs Home O2 Discharge instructions: No Meaningful Use Info Meaningful Use Meaningful Use Diagnoses (Choose all that apply): None applicable Ischemic Stroke Statin Dosing Therapy Reference: STATIN DOSE THERAPY REFERENCE: * Patients > 75 years receive moderate or high dose statin therapy. * Patients 75 years or YOUNGER should receive HIGH intensity statin dose unless contraindicated. You will be required to document reason for non-treatment if statin daily dose does not meet guidelines. HIGH DOSE STATIN THERAPY DAILY Atorvastatin > than or = to 40 mg Rosuvastatin > than or = to 20 mg Amlodipine + Atorvastatin > than or = to 2.5/40 mg Ezetimibe + Simvastatin 10/80 mg Simvastatin 80mg Discharge Plan Admission Admit Date/Time: 07/07/24 23:05 Attending Provider: Rocco Cruz Primary Care Provider: Claribel Guevara Consulting Providers: Abram Wang; Rocco Blank; Eliel Osborn; Marcelo Howard; Herbert Hendrickson; Kevin Moses; Zeeshan Arroyo; Gerardo Hernández; Bunny Trejo; Ami Mata NP; Aguilar Phan Discharge Orders/Prescriptions Prescriptions: Continued albuterol sulfate 90 mcg/actuation HFA aerosol inhaler 2 puff INHALATION Q4H PRN PRN (Reason: Shortness Of Breath Or Wheezing) Qty: 3 3RF hydroxyzine HCl 25 mg tablet 25 mg PO BID PRN (Reason: anxiety) aspirin [Adult Low Dose Aspirin] 81 mg tablet,delayed release (DR/EC) 81 mg PO QDAY sertraline [Zoloft] 50 mg tablet 50 mg PO QDAY bupropion HCl 300 mg tablet extended release 24 hr 300 mg PO DAILY Ensure Liquid 240 ml PO DAILY PRN (Reason: SUPPLEMENT) donepezil 5 mg tablet 5 mg PO QHS omeprazole 40 mg capsule,delayed release(DR/EC) 40 mg PO DAILY ipratropium-albuterol 0.5 mg-3 mg(2.5 mg base)/3 mL solution for nebulization 3 ml inhalation BID amlodipine 5 mg Tablet 5 mg PO DAILY 90 Days Qty: 90 0RF ferrous sulfate [Feosol] 325 mg (65 mg iron) tablet 325 mg PO DAILY Qty: 90 0RF acetaminophen 500 mg Tablet 1,000 mg PO Q8 PRN (Reason: pain) rosuvastatin 20 mg tablet 20 mg PO QDAY Qty: 30 2RF budesonide 1 mg/2 mL suspension for nebulization 1 mg inhalation BID Qty: 120 6RF Discontinued Xarelto 20 mg tablet 20 mg PO DAILY Qty: 30 2RF Rx Instructions: must administer with evening meal Referrals / Follow Up: Aguilar Phan MD [Med Staff - Active Staff] - Within 2 Weeks Claribel Guevara NP-C [Primary Care Provider] - Within 2 Weeks Ami Mata NP, NP-C [Med Staff - Adv Practice Prof] - Within 2 Weeks Disposition Disposition (needs filled in before D/C Order can be placed): Home, Self Care Charges/Coding Visit Charges Inpatient E&M: 89224 Disch Hosp >30min
== END 2024-07-09 15:34 | disposition home or self-care (01) | DRG 377 ==
LOC: ED 22:45 → MS3 07-08 00:06
PROVIDERS: Emergency Medicine; Internal Medicine Gastroenterology; Admitting Provider Family Medicine; Emergency Provider Emergency Medicine; PCP Nurse Practitioner Family; Visit Provider Internal Medicine
PROC: 0DJ08ZZ Inspection of Upper Intestinal Tract, Via Natural or Artificial Opening Endoscopic (ICD-10-PCS; CPT 43235; principal; 2024-07-09 12:40)
DX: K92.2 Gastrointestinal hemorrhage, unspecified (principal); E43 Unspecified severe protein-calorie malnutrition; D68.32 Hemorrhagic disorder due to extrinsic circulating anticoagulants; F11.20 Opioid dependence, uncomplicated; D62 Acute posthemorrhagic anemia; Z68.1 Body mass index [BMI] 19.9 or less, adult; B18.2 Chronic viral hepatitis C; D50.0 Iron deficiency anemia secondary to blood loss (chronic); J43.9 Emphysema, unspecified; F03.90 Unspecified dementia, unspecified severity, without behavioral disturbance, psychotic disturbance, mood disturbance, and anxiety; F34.1 Dysthymic disorder; I10 Essential (primary) hypertension; Z95.820 Peripheral vascular angioplasty status with implants and grafts; E78.5 Hyperlipidemia, unspecified; K21.9 Gastro-esophageal reflux disease without esophagitis; I70.0 Atherosclerosis of aorta; K63.5 Polyp of colon; I73.9 Peripheral vascular disease, unspecified; K44.9 Diaphragmatic hernia without obstruction or gangrene; I70.219 Atherosclerosis of native arteries of extremities with intermittent claudication, unspecified extremity; Z79.01 Long term (current) use of anticoagulants; F41.1 Generalized anxiety disorder; Z79.82 Long term (current) use of aspirin; Z79.51 Long term (current) use of inhaled steroids; Z87.891 Personal history of nicotine dependence; Z86.718 Personal history of other venous thrombosis and embolism; Z88.8 Allergy status to other drugs, medicaments and biological substances; Z79.02 Long term (current) use of antithrombotics/antiplatelets
CPT/HCPCS: 36415; 74174; 80048; 80053; 80076; 82274; 83540; 83550; 83735; 84100; 85025; 85610; 85730; 86850; 86900; 86901; 88305; 93005; 94640; 97802; 99284; P9016; Q9967; A4216; J2916

== ENCOUNTER → 2024-07-07 | Outpatient (CLI) | payer MEDICARE, MEDICAID, SELFPAY ==
[2024-07-07 12:20] LABS: Absolute Lymphocyte Count 2.01 X10^3/uL (0.83-4.51); Absolute Neutrophil Count 3.8 X10^3/uL (2.0-7.7); Basophil# 0.01 X10^3/uL; Basophil% 0.2 % (0-1); Eosinophil# 0.21 X10^3/uL; Eosinophils% 3.2 % (0-5); Hematocrit 18.5 % (40-54); Hemoglobin 5.4 g/dL (13.0-16.5); Lymphocyte # 2.01 X10^3/ul (0.83-4.51); Lymphocyte % 30.3 % (19-41); Mean Corp Hgb Conc 29.2 g/dL (32-36); Mean Corpuscular Volume 95.9 fL (80-94); Mean Platelet Vol. 9.2 fl (6.2-12.0); Monocyte# 0.59 X10^3/uL; Monocyte% 8.9 % (0-10); NRBC Flagged by Analyzer 0.3 % (0-5); Neutrophil # 3.77 X10^3/uL (2.7-7.7); Neutrophil % 56.8 % (47-70); POSITIVE COUNT YES; POSITIVE MORPHOLOGY YES; Platelet Count 390 K/mm3 (150-450); RBC Distribution Width CV 25.7 % (11.6-14.6); RBC Distribution Width SD 85.8 fl (35.1-43.9); Red Blood Count 1.93 M/mm3 (4.6-6.2); White Blood Count 6.6 K/mm3 (4.4-11.0)
[2024-07-07 12:26] LABS: Differential Indicated SCAN CRITERIA MET
[2024-07-07 12:50] LABS: Anisocytosis 3+; Differential Comment SCANNED; Polychromasia 2+
[2024-07-07 13:14] LABS: ALB/GLOB Ratio 1.6 RATIO (0.9-2.4); AST(SGOT) 25 U/L (<=37); Alanine Aminotransfer ALT/SGPT 24 U/L (<=46); Albumin, Serum 3.6 g/dL (3.4-4.8); Alkaline Phosphatase 72 U/L (40-129); Anion Gap 10 (5-15); BUN 21 mg/dL (4-19); BUN/Creat Ratio 22.1 RATIO (10-20); Carbon Dioxide 21.5 mmol/L (21.0-32.0); Chloride 109 mmol/L (98-108); Creatinine, Serum 0.95 mg/dL (0.70-1.20); EST Glomerular Filtration Rate 86 (>60); Globulin 2.3 g/dL (2.2-4.2); Glucose 105 mg/dL (70-99); Potassium 3.9 mmol/L (3.3-5.1); Sodium Level 141 mmol/L (133-145); Total Bilirubin < 0.15 mg/dL (0.00-1.30)
== END | disposition home or self-care (01) ==
LOC: LAB.FUTURE 11:37 → LAB 11:37
PROVIDERS: PCP Nurse Practitioner Family; Referring Provider Physician Assistant; Visit Provider Nurse Practitioner Family
DX: D64.9 Anemia, unspecified (principal); I73.9 Peripheral vascular disease, unspecified
CPT/HCPCS: 36415; 80053; 85025

== ENCOUNTER → 2024-07-23 | Outpatient (CLI) | payer MEDICARE, MEDICAID, SELFPAY ==
[2024-07-23 15:11] LABS: Hematocrit 31.9 % (40-54); Hemoglobin 10.4 g/dL (13.0-16.5)
--- OUTSIDE RECORDS SUMMARY | 2024-07-23 21:15 | XMS RPT_ITS | CCD ---
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 Name Role Phone Bernabe, Claribel Primary Care Unavailable Christina POTTERY STRIPER, Lina Referring Unavailable Vasquez POTTERY STRIPER, Lina Attending Unavailable Bernabe, Claribel Attending Unavailable Bernabe, Claribel Primary Care Unavailable Bernabe, Claribel Referring Unavailable Bernabe, Claribel Attending Unavailable Bernabe, Claribel Primary Care Unavailable Mckenzie, Geeta Referring Unavailable Loretta Lu Consulting Unavailable Sylvester, Aguilar Referring Unavailable Sylvester, Aguilar Admitting Unavailable Sylvester, Aguilar Consulting Unavailable Mckenzie, Geeta Attending Unavailable Bernabe, Claribel Primary Care Unavailable Bernabe, Claribel Primary Care Unavailable Sylvester, Aguilar Attending Unavailable Ophir, Aguilar Referring Unavailable Ophir, Aguilar Admitting Unavailable Bernabe, Claribel Attending Unavailable Bernabe, Claribel Primary Care Unavailable Bernabe, Claribel Referring Unavailable Bernabe, Claribel Primary Care Unavailable Esperanza POTTERY STRIPER, Ami Attending Unavailable Esperanza POTTERY STRIPER, Ami Referring Unavailable Bernabe, Claribel Primary Care Unavailable Ophir, Aguilar Consulting Unavailable Rocco Cruz Attending Unavailable Abram Wang Admitting Unavailable Jaylin Wangs Gokul Consulting Unavailable Bernabe, Claribel Primary Care Unavailable Mckenzie, Geeta Referring Unavailable Mckenzie, Geeta Attending Unavailable Bernabe, Claribel Primary Care Unavailable Mckenzie, Geeta Referring Unavailable Mckenzie, Geeta Consulting Unavailable Jorge Hare Attending Unavailable Sylvester, Aguilar Consulting Unavailable Bernabe, Claribel Primary Care Unavailable Jaylin Wangs F Admitting Unavailable Rocco Cruz Attending Unavailable Abram Wang Consulting Unavailable Rocco Cruz Consulting Unavailable Bernabe, Claribel Primary Care Unavailable Sylvester, Aguilar Consulting Unavailable Rocco Cruz Attending Unavailable Kotsonis, Abram F Admitting Unavailable Kotsonis, Abram F Consulting Unavailable Rocco Cruz Consulting [facility]available Sylvester Aguilar Consulting Unavailable Geeta Mckenzie Attending Unavailable Rocco Cruz Referring Unavailable Kotsonis, Abram F Admitting Unavailable Kotsonis, Abram F Consulting Unavailable Rocco Cruz Consulting Unavailable [facility] Primary Care Unavailable Kotsonis, Abram F Admitting Unavailable Kotsonis, Abram F Consulting Unavailable Friend, Sahil Attending Unavailable Rocco Blank Consulting Unavailable Pradm, Eliel Consulting Unavailable Howard, Marcelo Consulting Unavailable Isckarus, Mansour Consulting Unavailable Kevin Moses Consulting Unavailable Cruz, Zeeshan Consulting Unavailable Gerardo Hernández Consulting Unavailable Bunny Trejo Consulting Unavailable Esperanza POTTERY STRIPER, Ami Consulting Unavailable Aguilar Phan Consulting Unavailable Rocco Cruz Consulting Un[facility] Unavailable Kotsonis, Abram F Admitting Unavailable Kotsonis, Abram F Consulting Unavailable Rocco Cruz Attending Unavailable Rocco Blank Consulting Unavailable Eliel Osborn Consulting Unavailable Howard, Marcelo Consulting Unavailable Isckarus, Mansour Consulting Unavailable Kevin Moses Consulting Unavailable Cruz, Zeeshan Consulting Unavailable Gerardo Hernández Consulting Unavailable Bunny Trejo Consulting Unavailable Esperanza POTTERY STRIPER, Ami Consulting Unavailable Sylvester, Aguilar Consulting Unavailable Rocco Cruz Consulting Un[facility] Unavailable Sahil Tobin Attending Unavailable Kotsonis, Abram F Admitting Unavailable Kotsonis, Abram F Consulting Unavailable Rocco Blank Consulting Unavailable PraEliel chaidez Consulting Unavailable Howard, Marcelo Consulting Unavailable Isckarus, Mansour Consulting Unavailable , Kevin Consulting Unavailable Cruz, Zeeshan Consulting Unavailable Reno Hernándezer Consulting Unavailable Bunny Trejo Consulting Unavailable Esperanza POTTERY STRIPER, Ami Consulting Unavailable Sylvester, Aguilar Consulting Unavailable Rocco Cruz Consulting Unavailable [facility] Primary Care Unavailable Christina POTTERY STRIPER, Lina Referring Unavailable Christina POTTERY STRIPER, Lina Attending Unavailable [facility] Primary Care Unavailable Javon Ybarra Referring Unavailable Javon Ybarra Attending Unavailable [facility] Care Unavailable Kotsonis, Abram F Admitting Unavailable Kotsonis, Abram F Consulting Unavailable Rocco Cruz Attending Unavailable Rocco Cruz Consulting Un[facility] Unavailable Kotsonis, Abram F Admitting Unavailable Kotsonis, Abram F Consulting Unavailable Esperanza POTTERY STRIPER, Ami Attending Unavailable Rocco Blank Consulting Unavailable Eliel Osborn Consulting Unavailable Howard, Marcelo Consulting Unavailable Palmirakarus, Herbert Consulting Unavailable Kevin Moses Consulting Unavailable Zeeshan Arroyo Consulting Unavailable Gerardo Hernández Consulting Unavailable Maya, Bunny Consulting Unavailable Esperanza POTTERY STRIPER, Ami Consulting Unavailable Sylvester, Aguilar Consulting Unavailable Rocco Cruz Consulting Unavailable Sylvester, Aguilar Attending Unavailable Ophir, Aguilar Referring Unavailable Ophir, Aguilar Consulting [facility] Unavailable Mabeloninando, Abram F Consulting Unavailable Rocco Cruz Attending Unavailable Mabeloninando, Abram F Admitting Unavailable Rocco Blank Consulting Unavailable Eliel Osborn Consulting Unavailable Anita, Marcelo Consulting Unavailable Palmirakarus, Almaour Consulting Unavailable Kevin Moses Consulting Unavailable Cruz, Zeeshan Consulting Unavailable Betty, Gerardo Consulting Unavailable Maya, Bunny Consulting Unavailable Esperanza POTTERY STRIPER, Ami Consulting Unavailable Ophir, Aguilar Consulting Unavailable [facility] Unavailable Geeta Mckenzie Attending Unavailable Rocco Cruz Referring Unavailable Bryantsonis, Abram F Admitting Unavailable Bryantsonis, Abram F Consulting Unavailable Rocco Blank Consulting Unavailable Eliel Osborn Consulting Unavailable Marcelo Howard Consulting Unavailable Palmirakarus, lAmaour Consulting Unavailable Kevin Moses Consulting Unavailable Cruz, Zeeshan Consulting Unavailable Reno Hernándezer Consulting Unavailable Maya, Bunny Consulting Unavailable Esperanza POTTERY STRIPER, Ami Consulting Unavailable Sylvester, Aguilar Consulting Unavailable Rocco Cruz Consulting Unavailable [facility] Unavailable Mckenzie, Geeta Referring Unavailable MckenzieCullen murphyison Attending Unavailable [facility] Unavailable Sylvester, Aguilar Consulting Unavailable Kotsonis, Abram F Admitting Unavailable Kotsonis, Abram F Attending Unavailable Kotsonis, Abram F Consulting Unavailable Sahil Tobin Attending Unavailable [facility] Primary Care Unavailable Rocco Cruz Referring Unavailable Belal, Lemueljordink Attending Unavailable Belal, Farouk Referring Unavailable Bernabe, Claribel Primary Care Unavailable Christina POTTERY STRIPER, Lina Referring Unavailable Jorge Hare Attending Unavailable Bernabe, Claribel Primary Care Unavailable Bernabe, Claribel Primary Care Unavailable Jaylin Wangs F Referring Unavailable BelElvira portillok Attending Unavailable Bernabe, Claribel Primary Care Unavailable Aguilar Phan Attending Unavailable Mckenzie, Geeta Referring Unavailable Bernabe, Claribel Primary Care Unavailable Aguilar Phan Attending Unavailable Angelo Zambrano Referring Unavailable Bernabe, Claribel Primary Care Unavailable Mckenzie, Geeta Attending Unavailable Bernabe, Claribel Referring Unavailable Bernabe, Claribel Primary Care Unavailable Sahil Tobin Attending Unavailable Rocco Cruz Referring Unavailable Bernabe, Claribel Primary Care Unavailable Aguilar Phan Consulting Unavailable Abram Wang F Admitting Unavailable Rocco Cruz Attending Unavailable Jaylin Wangs F Consulting Unavailable Kittoabdullahi, oRcco Consulting Unavailable Bernabe, Claribel Primary Care Unavailable Sahil Tobin Attending Unavailable Aguilar Phan Consulting Unavailable MukultoeRocco Referring Unavailable MabeloniGelacio collierAbram F Admitting Unavailable Jaylin Wangs F Consulting Unavailable KitRocco fajardo Consulting Unavailable Loretta Lu Attending Unavailable Bernabe, Claribel Referring Unavailable Bernabe, Claribel Primary Care Unavailable Bernabe, Claribel Primary Care Unavailable Christina MILLIGAN, Lina Attending Unavailable Bernabe, Claribel Referring Unavailable Bernabe, Claribel Primary Care Unavailable Mckenzie, Geeta Attending Unavailable Bernabe, Claribel Referring Unavailable Bernabe, Claribel Primary Care Unavailable Rocco Cruz Referring Unavailable Herbert Hendrickson Attending Unavailable Bernabe, Claribel Primary Care Unavailable Mckenzie, Geeta Attending Unavailable Bernabe, Claribel Referring Unavailable Bernabe, Claribel Referring Unavailable Bernabe, Claribel Primary Care Unavailable Esperanza POTTERY STRIPERAmi Attending Unavailable Bernabe, Claribel Referring Unavailable Bernabe, Claribel Primary Care Unavailable Mckenzie, Geeta Attending Unavailable Bernabe, Claribel Primary Care Unavailable MabeloniGelacio collierAbram F Admitting Unavailable MabelonisGelacioAbram F Consulting Unavailable Gelacio Wangolas F Attending Unavailable Allergies Allergy Classification Reported Allergen(s) Allergy Type Date of Onset Reaction(s) Facility (1 source) busPIRone Drug Allergy 07-21-2024 [facility] Repository (1 source) Sucralfate Drug Allergy 07-21-2024 [facility] Repository (1 source) traZODone Drug Allergy 07-21-2024 [facility] Repository (1 source) venom-honey bee Drug allergy (disorder) 07-21-2024 [facility] Repository Problems Active Problems Problem Classification Problem Date Documented Da te Episodic/Chronic Chronic obstructive pulmonary disease and bronchiectasis (2 sources) Centrilobular emphysema; Translations: [Centrilobular emphysema] Onset: Chronic Deficiency and other anemia (1 source) Iron deficiency anemia, unspecified; Translations: [Iron deficiency anemia, unspecified] Onset: Episodic Deficiency and other anemia (2 sources) Anemia, unspecified; Translations: [Anemia, unspecified] Onset: Episodic Gastrointestinal hemorrhage (2 sources) Gastrointestinal hemorrhage, unspecified; Translations: [Gastrointestinal hemorrhage, unspecified] Onset: Episodic Malaise and fatigue (1 source) Weakness; Translations: [Weakness] Onset: Episodic Occlusion or stenosis of precerebral arteries (1 source) Occlusion and stenosis of bilateral carotid arteries; Translations: [Occlusion and stenosis of bilateral carotid arteries] Onset: Chronic Other circulatory disease (1 source) Peripheral vascular angioplasty status; Translations: [Peripheral vascular angioplasty status] Onset: Episodic Other screening for suspected conditions (not mental disorders or infectious disease) (3 sources) Other specified abnormal findings of blood chemistry; Translations: [Encounter for screening for malignant neoplasm of prostate] Onset: Episodic Peripheral and visceral atherosclerosis (3 sources) Peripheral vascular disease, unspecified; Translations: [Atherosclerosis of [place] arteries of extremities with intermittent claudication, left leg] Onset: Chronic Substance-related disorders (1 source) Nicotine dependence, cigarettes, uncomplicated; Translations: [Nicotine dependence, cigarettes, uncomplicated] Onset: Chronic Past or Other Problems Problem Classification Problem Date Documented Da te Episodic/Chronic Other acquired deformities (1 source) Spondylolisthesis, lumbar region; Translations: [Spondylolisthesis, lumbar region] Onset: 09-03-2023 Episodic Other connective tissue disease (1 source) Trochanteric bursitis, right hip; Translations: [Trochanteric bursitis, right hip] Onset: 09-03-2023 Episodic Other lower respiratory disease (1 source) Wheezing; Translations: [Wheezing] Onset: 01-13-2024 Episodic Other non-traumatic joint disorders (1 source) Pain in right hip; Translations: [Pain in right hip] Onset: 04-10-2024 Episodic Results Test Name Value Interpretation Reference Range Facility Oncology Visit Reporton 07-12 Oncology Visit Report Normal [facility] Basic Metabolic Profile (BMP )on 07-11-2024 BUN Normal 4-19 [facility] Comment on above: Result Comment: Canc elled via OM: Order cancelled - Patient discharged Performed By: #### L 100.0100, L500.2500 ####[facility] [address] [facility] [address] BUN/CRE Normal 10-20 [facility] Comment on above: Result Comment: Canc elled via OM: Order cancelled - Patient discharged Performed By: #### L 100.0100, L500.2500 ####[facility] [address] [facility] [address] Calcium Normal 7.6-11.0 [facility] Comment on above: Result Comment: Canc elled via OM: Order cancelled - Patient discharged Performed By: #### L 100.0100, L500.2500 ####[facility] [address] [facility] [address] CL Normal 98-108 [facility] Comment on above: Result Comment: Canc elled via OM: Order cancelled - Patient discharged Performed By: #### L 100.0100, L500.2500 ####[facility] [address] [facility] [address] CO2 Normal 21.0-32.0 [facility] Comment on above: Result Comment: Canc elled via OM: Order cancelled - Patient discharged Performed By: #### L 100.0100, L500.2500 ####[facility] [address] [place], [address] CREAT,SERUM Normal 0.70-1.20 [facility] Comment on above: Result Comment: Canc elled via OM: Order cancelled - Patient discharged Performed By: #### L 100.0100, L500.2500 ####[facility] [address] [place], [address] eGFR Normal >60 [facility] Comment on above: Result Comment: Canc elled via OM: Order cancelled - Patient discharged Performed By: #### L 100.0100, L500.2500 ####[facility] [address] [place], [address] GAP Normal 5-15 [facility] Comment on above: Result Comment: Canc elled via OM: Order cancelled - Patient discharged Performed By: #### L 100.0100, L500.2500 ####[facility] [address] [place], [address] GLU Normal 70-99 [facility] Comment on above: Result Comment: Canc elled via OM: Order cancelled - Patient discharged Performed By: #### L 100.0100, L500.2500 ####[facility] [address] [place], [address] Potassium Normal 3.3-5.1 [facility] Comment on above: Result Comment: Canc elled via OM: Order cancelled - Patient discharged Performed By: #### L 100.0100, L500.2500 ####[facility] [address] [place], [address] Basic Metabolic Profile (BMP) Normal 133-145 [facility] Comment on above: Result Comment: Canc elled via OM: Order cancelled - Patient discharged Performed By: #### L 100.0100, L500.2500 ####[facility] [address] [place], [address] CBC W/Diff, Automatedon 05-3 Absolute Neut Normal 2.0-7.7 [facility] Comment on above: Result Comment: Canc elled via OM: Order cancelled - Patient discharged Performed By: #### L 100.0100, L500.2500 ####[facility] [address] [place], [address] HCT Normal 40-54 [facility] Comment on above: Result Comment: Canc elled via OM: Order cancelled - Patient discharged Performed By: #### L 100.0100, L500.2500 ####[facility] [address] [place], [address] HGB Normal 13.0-16.5 [facility] Comment on above: Result Comment: Canc elled via OM: Order cancelled - Patient discharged Performed By: #### L 100.0100, L500.2500 ####[facility] [address] [place], [address] MCH Normal 27.0-32.0 [facility] Comment on above: Result Comment: Canc elled via OM: Order cancelled - Patient discharged Performed By: #### L 100.0100, L500.2500 ####[facility] [address] [place], [address] MCHC Normal 32-36 [facility] Comment on above: Result Comment: Canc elled via OM: Order cancelled - Patient discharged Performed By: #### L 100.0100, L500.2500 ####[facility] [address] [place], [address] MCV Normal 80-94 [facility] Comment on above: Result Comment: Canc elled via OM: Order cancelled - Patient discharged Performed By: #### L 100.0100, L500.2500 ####[facility] [address] [place], [address] NEUT% Normal 47-70 [facility] Comment on above: Result Comment: Canc elled via OM: Order cancelled - Patient discharged Performed By: #### L 100.0100, L500.2500 ####[facility] [address] [place], [address] PLT Normal 150-450 [facility] Comment on above: Result Comment: Canc elled via OM: Order cancelled - Patient discharged Performed By: #### L 100.0100, L500.2500 ####[facility] [address] [place], [address] RBC Normal 4.6-6.2 [facility] Comment on above: Result Comment: Canc elled via OM: Order cancelled - Patient discharged Performed By: #### L 100.0100, L500.2500 ####[facility] [address] [place], [address] RDW CV Normal 11.6-14.6 [facility] Comment on above: Result Comment: Canc elled via OM: Order cancelled - Patient discharged Performed By: #### L 100.0100, L500.2500 ####[facility] [address] [place], [address] RDW SD Normal 35.1-43.9 [facility] Comment on above: Result Comment: Canc elled via OM: Order cancelled - Patient discharged Performed By: #### L 100.0100, L500.2500 ####[facility] [address] [place], [address] WBC Normal 4.4-11.0 [facility] Comment on above: Result Comment: Canc elled via OM: Order cancelled - Patient discharged Performed By: #### L 100.0100, L500.2500 ####[facility] [address] [place], [address] Basic Metabolic Profile (BMP )on 07-10-2024 BUN Normal 4-19 [facility] Comment on above: Result Comment: Canc elled via OM: Order cancelled - Patient discharged Performed By: #### L 500.2500, L100.0100 ####[facility] [address] [place], [address] BUN/CRE Normal 10-20 [facility] Comment on above: Result Comment: Canc elled via OM: Order cancelled - Patient discharged Performed By: #### L 500.2500, L100.0100 ####[facility] [address] [place], [address] Calcium Normal 7.6-11.0 [facility] Comment on above: Result Comment: Canc elled via OM: Order cancelled - Patient discharged Performed By: #### L 500.2500, L100.0100 ####[facility] [address] [place], [address] CL Normal 98-108 [facility] Comment on above: Result Comment: Canc elled via OM: Order cancelled - Patient discharged Performed By: #### L 500.2500, L100.0100 ####[facility] [address] [place], [address] CO2 Normal 21.0-32.0 [facility] Comment on above: Result Comment: Canc elled via OM: Order cancelled - Patient discharged Performed By: #### L 500.2500, L100.0100 ####[facility] [address] [place], [address] CREAT,SERUM Normal 0.70-1.20 [facility] Comment on above: Result Comment: Canc elled via OM: Order cancelled - Patient discharged Performed By: #### L 500.2500, L100.0100 ####[facility] [address] [place], [address] eGFR Normal >60 [facility] Comment on above: Result Comment: Canc elled via OM: Order cancelled - Patient discharged Performed By: #### L 500.2500, L100.0100 ####[facility] [address] [place], [address] GAP Normal 5-15 [facility] Comment on above: Result Comment: Canc elled via OM: Order cancelled - Patient discharged Performed By: #### L 500.2500, L100.0100 ####[facility] [address] [place], [address] GLU Normal 70-99 [facility] Comment on above: Result Comment: Canc elled via OM: Order cancelled - Patient discharged Performed By: #### L 500.2500, L100.0100 ####[facility] [address] [place], [address] Potassium Normal 3.3-5.1 [facility] Comment on above: Result Comment: Canc elled via OM: Order cancelled - Patient discharged Performed By: #### L 500.2500, L100.0100 ####[facility] [address] [place], [address] Basic Metabolic Profile (BMP) Normal 133-145 [facility] Comment on above: Result Comment: Canc elled via OM: Order cancelled - Patient discharged Performed By: #### L 500.2500, L100.0100 ####[facility] [address] [place], [address] CBC W/Diff, Automatedon 05-3 0-2024 Absolute Neut Normal 2.0-7.7 [facility] Comment on above: Result Comment: Canc elled via OM: Order cancelled - Patient discharged Performed By: #### L 500.2500, L100.0100 ####[facility] [address] [place], [address] HCT Normal 40-54 [facility] Comment on above: Result Comment: Canc elled via OM: Order cancelled - Patient discharged Performed By: #### L 500.2500, L100.0100 ####[facility] [address] [place], [address] HGB Normal 13.0-16.5 [facility] Comment on above: Result Comment: Canc elled via OM: Order cancelled - Patient discharged Performed By: #### L 500.2500, L100.0100 ####[facility] [address] [place], [address] MCH Normal 27.0-32.0 [facility] Comment on above: Result Comment: Canc elled via OM: Order cancelled - Patient discharged Performed By: #### L 500.2500, L100.0100 ####[facility] [address] [place], [address] MCHC Normal 32-36 [facility] Comment on above: Result Comment: Canc elled via OM: Order cancelled - Patient discharged Performed By: #### L 500.2500, L100.0100 ####[facility] [address] [place], [address] MCV Normal 80-94 [facility] Comment on above: Result Comment: Canc elled via OM: Order cancelled - Patient discharged Performed By: #### L 500.2500, L100.0100 ####[facility] [address] [place], [address] NEUT% Normal 47-70 [facility] Comment on above: Result Comment: Canc elled via OM: Order cancelled - Patient discharged Performed By: #### L 500.2500, L100.0100 ####[facility] [address] [place], [address] PLT Normal 150-450 [facility] Comment on above: Result Comment: Canc elled via OM: Order cancelled - Patient discharged Performed By: #### L 500.2500, L100.0100 ####[facility] [address] [place], [address] RBC Normal 4.6-6.2 [facility] Comment on above: Result Comment: Canc elled via OM: Order cancelled - Patient discharged Performed By: #### L 500.2500, L100.0100 ####[facility] [address] [place], [address] RDW CV Normal 11.6-14.6 [facility] Comment on above: Result Comment: Canc elled via OM: Order cancelled - Patient discharged Performed By: #### L 500.2500, L100.0100 ####[facility] [address] [place], [address] RDW SD Normal 35.1-43.9 [facility] Comment on above: Result Comment: Canc elled via OM: Order cancelled - Patient discharged Performed By: #### L 500.2500, L100.0100 ####[facility] [address] [place], [address] WBC Normal 4.4-11.0 [facility] Comment on above: Result Comment: Canc elled via OM: Order cancelled - Patient discharged Performed By: #### L 500.2500, L100.0100 ####[facility] [address] [place], [address] 12 Lead EKGon 07-09-2024 12 Lead EKG Normal [facility] Basic Metabolic Profile (BMP )on 07-09-2024 BUN/CRE 16.7 RATIO Normal 10-20 [facility] Comment on above: Performed By: #### L 100.0100, L500.2500, L501.2300, L501.5200 ####[facility] [address] [place], [address] Calcium [Mass/Vol] 9.2 mg/dL Normal 7.6-11.0 [facility] Comment on above: Performed By: #### L 100.0100, L500.2500, L501.2300, L501.5200 ####[facility] [address] [place], [address] Chloride [Moles/Vol] 108 mmol/L Normal 98-108 [facility] Comment on above: Performed By: #### L 100.0100, L500.2500, L501.2300, L501.5200 ####[facility] [address] [place], [address] CO2 [Moles/Vol] 21.5 mmol/L Normal 21.0-32.0 [facility] Comment on above: Performed By: #### L 100.0100, L500.2500, L501.2300, L501.5200 ####[facility] [address] [place], [address] Creatinine [Mass/Vol] 0.98 mg/dL Normal 0.70-1.20 [facility] Comment on above: Performed By: #### L 100.0100, L500.2500, L501.2300, L501.5200 ####[facility] [address] [place], [address] ECRCL 53.27 ml/min Normal 50-250 [facility] Comment on above: Performed By: #### L 100.0100, L500.2500, L501.2300, L501.5200 ####[facility] [address] [place], [address] GAP 12 Normal 5-15 [facility] Comment on above: Performed By: #### L 100.0100, L500.2500, L501.2300, L501.5200 ####[facility] [address] [place], [address] GFR/1.73 sq M.predicted among non-blacks MDRD (S/P/Bld) [Vol rate/Area] 83 mL/min/{1.73_m2} Normal >60 [facility] Comment on above: Result Comment: mL/m in/1.73m2 CKD-EPI Creatinine Equation (2020) Performed By: #### L 100.0100, L500.2500, L501.2300, L501.5200 ####[facility] [address] [place], [address] Glucose [Mass/Vol] 70 mg/dL Normal 70-99 [facility] Comment on above: Performed By: #### L 100.0100, L500.2500, L501.2300, L501.5200 ####[facility] [address] [place], [address] Potassium [Moles/Vol] 3.8 mmol/L Normal 3.3-5.1 [facility] Comment on above: Performed By: #### L 100.0100, L500.2500, L501.2300, L501.5200 ####[facility] [address] [place], [address] Sodium [Moles/Vol] 142 mmol/L Normal 133-145 [facility] Comment on above: Performed By: #### L 100.0100, L500.2500, L501.2300, L501.5200 ####[facility] [address] [place], [address] Urea nitrogen [Mass/Vol] 16 mg/dL Normal 4-19 [facility] Comment on above: Performed By: #### L 100.0100, L500.2500, L501.2300, L501.5200 ####[facility] [address] [place], [address] CBC W/Diff, Automatedon 05-2 OVALOCYTE RARE Normal [facility] Comment on above: Performed By: #### L 100.0100, L500.2500, L501.2300, L501.5200 ####[facility] [address] [place], [address] POLYCHROMASIA 1+ Normal [facility] Comment on above: Performed By: #### L 100.0100, L500.2500, L501.2300, L501.5200 ####[facility] [address] [place], [address] Anisocytosis Ql (Bld) 3+ Normal [facility] Comment on above: Performed By: #### L 100.0100, L500.2500, L501.2300, L501.5200 ####[facility] [address] [place], [address] MACROCYTOSIS 1+ Normal [facility] Comment on above: Performed By: #### L 100.0100, L500.2500, L501.2300, L501.5200 ####[facility] [address] [place], [address] MICROCYTIC 2+ Normal [facility] Comment on above: Performed By: #### L 100.0100, L500.2500, L501.2300, L501.5200 ####[facility] [address] [place], [address] SMEAR COMMENT SCANNED [facility] Comment on above: Performed By: #### L 100.0100, L500.2500, L501.2300, L501.5200 ####[facility] [address] [place], [address] Consultation - Surgicalon Consultation - Surgical Normal [facility] EGD Reporton 07-09-2024 EGD Report Normal [facility] Immunohistochemical Stainson 07-09-2024 Immunohistochemical Stains Normal [facility] Comment on above: Performed By: #### P IMHI ####[facility] [address] [place], [address] MR/POSTOP.ANEon 07-09-2024 MR/POSTOP.ANE Normal [facility] MR/BQGIOZLO2xk 07-09-2024 MR/POSTOPAN2 Normal [facility] Magnesiumon 07-09-2024 Magnesium [Mass/Vol] 2.3 mg/dL High 1.5-2.2 [facility] Comment on above: Performed By: #### L 100.0100, L500.2500, L501.2300, L501.5200 ####[facility] [address] [place], [address] Phosphoruson 07-09-2024 Phosphate [Mass/Vol] 4.9 mg/dL High 2.7-4.5 [facility] Comment on above: Performed By: #### L 100.0100, L500.2500, L501.2300, L501.5200 ####[facility] [address] [place], [address] Basic Metabolic Profile (BMP )on 07-08-2024 BUN/CRE 22.1 RATIO High 10-20 [facility] Comment on above: Performed By: #### L 500.2500, L100.0100 ####[facility] [address] [place], [address] Calcium [Mass/Vol] 8.9 mg/dL Normal 7.6-11.0 [facility] Comment on above: Performed By: #### L 500.2500, L100.0100 ####[facility] [address] [place], [address] Chloride [Moles/Vol] 107 mmol/L Normal 98-108 [facility] Comment on above: Performed By: #### L 500.2500, L100.0100 ####[facility] [address] [place], [address] CO2 [Moles/Vol] 21.0 mmol/L Normal 21.0-32.0 [facility] Comment on above: Performed By: #### L 500.2500, L100.0100 ####[facility] [address] [place], [address] Creatinine [Mass/Vol] 0.86 mg/dL Normal 0.70-1.20 [facility] Comment on above: Performed By: #### L 500.2500, L100.0100 ####[facility] [address] [place], [address] ECRCL 60.71 ml/min Normal 50-250 [facility] Comment on above: Performed By: #### L 500.2500, L100.0100 ####[facility] [address] [place], [address] GAP 10 Normal 5-15 [facility] Comment on above: Performed By: #### L 500.2500, L100.0100 ####[facility] [address] [place], [address] GFR/1.73 sq M.predicted among non-blacks MDRD (S/P/Bld) [Vol rate/Area] 93 mL/min/{1.73_m2} Normal >60 [facility] Comment on above: Result Comment: mL/m in/1.73m2 CKD-EPI Creatinine Equation (2020) Performed By: #### L 500.2500, L100.0100 ####[facility] [address] [place], [address] Glucose [Mass/Vol] 96 mg/dL Normal 70-99 [facility] Comment on above: Performed By: #### L 500.2500, L100.0100 ####[facility] [address] [place], [address] Potassium [Moles/Vol] 4.1 mmol/L Normal 3.3-5.1 [facility] Comment on above: Performed By: #### L 500.2500, L100.0100 ####[facility] [address] [place], [address] Sodium [Moles/Vol] 138 mmol/L Normal 133-145 [facility] Comment on above: Performed By: #### L 500.2500, L100.0100 ####[facility] [address] [place], [address] Urea nitrogen [Mass/Vol] 19 mg/dL Normal 4-19 [facility] Comment on above: Performed By: #### L 500.2500, L100.0100 ####[facility] [address] [place], [address] CBC W/Diff, Automatedon - Anisocytosis Ql (Bld) 1+ Normal [facility] Comment on above: Performed By: #### L 500.2500, L100.0100 ####[facility] [address] [place], [address] Consultation - Oncology IPon 07-08-2024 Consultation - Oncology IP [facility] MR/CON.PCM.GIon 07-08-2024 MR/CON.PCM.GI [facility] BRCon 07-07-2024 RC Normal [facility] Comment on above: Result Comment: [id number] OP RC TRANSFUSED 07/08/24 [id number] OP RC TRANSFUSED 07/08/24 [id number] OP RC TRANSFUSED 07/07/24 2108 Performed By: #### B RC ####[facility] [address] [place], [address] Basic Metabolic Profile (BMP )on 07-07-2024 BUN/CRE 20.9 RATIO High 10-20 [facility] Comment on above: Performed By: #### B TS, L500.2500, L100.0100, L300.3900, L300.4310 ####[facility] [address] [place], [address] Calcium [Mass/Vol] 8.8 mg/dL Normal 7.6-11.0 [facility] Comment on above: Performed By: #### B TS, L500.2500, L100.0100, L300.3900, L300.4310 ####[facility] [address] [place], [address] Chloride [Moles/Vol] 109 mmol/L High 98-108 [facility] Comment on above: Performed By: #### B TS, L500.2500, L100.0100, L300.3900, L300.4310 ####[facility] [address] [place], [address] CO2 [Moles/Vol] 21.0 mmol/L Normal 21.0-32.0 [facility] Comment on above: Performed By: #### B TS, L500.2500, L100.0100, L300.3900, L300.4310 ####[facility] [address] [place], [address] Creatinine [Mass/Vol] 1.01 mg/dL Normal 0.70-1.20 [facility] Comment on above: Performed By: #### B TS, L500.2500, L100.0100, L300.3900, L300.4310 ####[facility] [address] [place], [address] ECRCL 52.22 ml/min Normal 50-250 [facility] Comment on above: Performed By: #### B TS, L500.2500, L100.0100, L300.3900, L300.4310 ####[facility] [address] [place], [address] GAP 9 Normal 5-15 [facility] Comment on above: Performed By: #### B TS, L500.2500, L100.0100, L300.3900, L300.4310 ####[facility] [address] [place], [address] GFR/1.73 sq M.predicted among non-blacks MDRD (S/P/Bld) [Vol rate/Area] 80 mL/min/{1.73_m2} Normal >60 [facility] Comment on above: Result Comment: mL/m in/1.73m2 CKD-EPI Creatinine Equation (2020) Performed By: #### Vijay TS, L500.2500, L100.0100, L300.3900, L300.4310 ####[facility] [address] [place], [address] Glucose [Mass/Vol] 94 mg/dL Normal 70-99 [facility] Comment on above: Performed By: #### Vijay TS, L500.2500, L100.0100, L300.3900, L300.4310 ####[facility] [address] [place], [address] Potassium [Moles/Vol] 4.1 mmol/L Normal 3.3-5.1 [facility] Comment on above: Performed By: #### Vijay TS, L500.2500, L100.0100, L300.3900, L300.4310 ####[facility] [address] [place], [address] Sodium [Moles/Vol] 139 mmol/L Normal 133-145 [facility] Comment on above: Performed By: #### Vijay TS, L500.2500, L100.0100, L300.3900, L300.4310 ####[facility] [address] [place], [address] Urea nitrogen [Mass/Vol] 21 mg/dL High 4-19 [facility] Comment on above: Performed By: #### Vijay TS, L500.2500, L100.0100, L300.3900, L300.4310 ####[facility] [address] [place], [address] CBC W/Diff, Automatedon 05-2 ACANTHOCYTE 1+ Normal [facility] Comment on above: Performed By: #### B TS, L500.2500, L100.0100, L300.3900, L300.4310 ####[facility] [address] [place], [address] Anisocytosis Ql (Bld) 3+ Normal [facility] Comment on above: Performed By: #### B TS, L500.2500, L100.0100, L300.3900, L300.4310 ####[facility] [address] [place], [address] OVALOCYTE 1+ Normal [facility] Comment on above: Performed By: #### B TS, L500.2500, L100.0100, L300.3900, L300.4310 ####[facility] [address] [place], [address] POLYCHROMASIA 1+ Normal [facility] Comment on above: Performed By: #### B TS, L500.2500, L100.0100, L300.3900, L300.4310 ####[facility] [address] [place], [address] TEAR DROP 1+ Normal [facility] Comment on above: Performed By: #### B TS, L500.2500, L100.0100, L300.3900, L300.4310 ####[facility] [address] [place], [address] PLT EST A Normal ADEQ [facility] Comment on above: Performed By: #### B TS, L500.2500, L100.0100, L300.3900, L300.4310 ####[facility] [address] [place], [address] Anisocytosis Ql (Bld) 3+ Normal [facility] Comment on above: Order Comment: NELLA LU ORDERED CBCRACHEL BERNABE ORDERED A CBCDLEFT MESSAGE TO RETURN CALL FOR CRITICAL RESULT 1225 SLCRITICAL VALUE CALLED TO LMCCLAIN AT PZVCGC92/27/25 1246 Shelley Romero.RESULTS READ BACK BY SAME. Performed By: #### L 100.0100 ####[facility] [address] [place], [address] POLYCHROMASIA 2+ Normal [facility] Comment on above: Order Comment: NELLA LU ORDERED CBCRACHEL BERNABE ORDERED A CBCDLEFT MESSAGE TO RETURN CALL FOR CRITICAL RESULT 1225 SLCRITICAL VALUE CALLED TO LMCCLAIN AT PPHMAO74/27/25 1246 Shelley Romero.RESULTS READ BACK BY SAME. Performed By: #### L 100.0100 ####[facility] [address] [place], [place], [address] SMEAR COMMENT SCANNED Normal [facility] Comment on above: Order Comment: NELLA LU ORDERED CBCRACHEL BERNABE ORDERED A CBCDLEFT MESSAGE TO RETURN CALL FOR CRITICAL RESULT 1225 SLCRITICAL VALUE CALLED TO LMCCLAIN AT UDZYWE23/27/25 1246 Shelley Romero.RESULTS READ BACK BY SAME. Performed By: #### L 100.0100 ####[facility] [address] [place], [place], [address] CTA Abd/Pelvis W/WO Contrast on 07-07-2024 CTA Abd/Pelvis W/WO Contrast Normal [facility] Comprehensive Metabolic Prof ilon 07-07-2024 Albumin [Mass/Vol] 3.6 g/dL Normal 3.4-4.8 [facility] Comment on above: Performed By: #### L 500.4050 ####[facility] [address] [place], [address] Albumin/Globulin [Mass ratio] 1.6 {ratio} Normal 0.9-2.4 [facility] Comment on above: Performed By: #### L 500.4050 ####[facility] [address] [place], [address] ALK PHOS 72 U/L Normal 40-129 [facility] Comment on above: Performed By: #### L 500.4050 ####[facility] [address] [place], [address] ALT [Catalytic activity/Vol] 24 U/L Normal <=46 [facility] Comment on above: Performed By: #### L 500.4050 ####[facility] [address] [place], [address] AST [Catalytic activity/Vol] 25 U/L Normal <=37 [facility] Comment on above: Performed By: #### L 500.4050 ####[facility] [address] [place], [address] BUN/CRE 22.1 RATIO High 10-20 [facility] Comment on above: Performed By: #### L 500.4050 ####[facility] [address] [place], [address] Calcium [Mass/Vol] 9.0 mg/dL Normal 7.6-11.0 [facility] Comment on above: Performed By: #### L 500.4050 ####[facility] [address] [place], [address] Chloride [Moles/Vol] 109 mmol/L High 98-108 [facility] Comment on above: Performed By: #### L 500.4050 ####[facility] [address] [place], [address] CO2 [Moles/Vol] 21.5 mmol/L Normal 21.0-32.0 [facility] Comment on above: Performed By: #### L 500.4050 ####[facility] [address] [place], [address] Creatinine [Mass/Vol] 0.95 mg/dL Normal 0.70-1.20 [facility] Comment on above: Performed By: #### L 500.4050 ####[facility] [address] [place], [address] GAP 10 Normal 5-15 [facility] Comment on above: Performed By: #### L 500.4050 ####[facility] [address] [place], [address] GFR/1.73 sq M.predicted among non-blacks MDRD (S/P/Bld) [Vol rate/Area] 86 mL/min/{1.73_m2} Normal >60 [facility] Comment on above: Result Comment: mL/m in/1.73m2 CKD-EPI Creatinine Equation (2020) Performed By: #### L 500.4050 ####[facility] [address] [place], [address] Globulin (S) [Mass/Vol] 2.3 g/dL Normal 2.2-4.2 [facility] Comment on above: Performed By: #### L 500.4050 ####[facility] [address] [place], [address] Glucose [Mass/Vol] 105 mg/dL High 70-99 [facility] Comment on above: Performed By: #### L 500.4050 ####[facility] [address] [place], [address] Potassium [Moles/Vol] 3.9 mmol/L Normal 3.3-5.1 [facility] Comment on above: Performed By: #### L 500.4050 ####[facility] [address] [place], [address] Sodium [Moles/Vol] 141 mmol/L Normal 133-145 [facility] Comment on above: Performed By: #### L 500.4050 ####[facility] [address] [place], [address] T BILI < 0.15 Normal 0.00-1.30 [facility] Comment on above: Performed By: #### L 500.4050 ####[facility] [address] [place], [address] T PROT 6.0 g/dL Normal 5.9-8.4 [facility] Comment on above: Performed By: #### L 500.4050 ####[facility] [address] [place], [address] Urea nitrogen [Mass/Vol] 21 mg/dL High 4-19 [facility] Comment on above: Performed By: #### L 500.4050 ####[facility] [address] [place], [address] Emergency Department Summary on 07-07-2024 Emergency Department Summary Normal [facility] H AND P Exam - Hospitaliston 07-07-2024 H&P Exam - Hospitalist Normal [facility] Iron+Iron Binding Capacityon 07-07-2024 Iron [Mass/Vol] 63 ug/dL Low 65-175 [facility] Comment on above: Performed By: #### L 500.3400, L503.6030 ####[facility] [address] [place], [address] IRON SATURATION 22.0 Normal 9-55 [facility] Comment on above: Performed By: #### L 500.3400, L503.6030 ####[facility] [address] [place], [address] TIBC 288 ug/dL Normal 250-450 [facility] Comment on above: Performed By: #### L 500.3400, L503.6030 ####[facility] [address] [place], [address] UIBC 225 ug/dL Low 228-428 [facility] Comment on above: Performed By: #### L 500.3400, L503.6030 ####[facility] [address] [place], [address] Liver Profileon 07-07-2024 Albumin [Mass/Vol] 3.9 g/dL Normal 3.4-4.8 [facility] Comment on above: Performed By: #### L 500.3400, L503.6030 ####[facility] [address] [place], [address] ALK PHOS 66 U/L Normal 40-129 [facility] Comment on above: Performed By: #### L 500.3400, L503.6030 ####[facility] [address] [place], [address] ALT [Catalytic activity/Vol] 22 U/L Normal <=46 [facility] Comment on above: Performed By: #### L 500.3400, L503.6030 ####[facility] [address] [place], [address] AST [Catalytic activity/Vol] 24 U/L Normal <=37 [facility] Comment on above: Performed By: #### L 500.3400, L503.6030 ####[facility] [address] [place], [address] D BILI < 0.08 Normal 0.00-0.30 [facility] Comment on above: Performed By: #### L 500.3400, L503.6030 ####[facility] [address] [place], [address] Globulin (S) [Mass/Vol] 2.2 g/dL Normal 2.2-4.2 [facility] Comment on above: Performed By: #### L 500.3400, L503.6030 ####[facility] [address] [place], [address] T BILI < 0.15 Normal 0.00-1.30 [facility] Comment on above: Performed By: #### L 500.3400, L503.6030 ####[facility] [address] [place], [address] T PROT 6.1 g/dL Normal 5.9-8.4 [facility] Comment on above: Performed By: #### L 500.3400, L503.6030 ####[facility] [address] [place], [address] Partial Thromboplast Timeon 07-07-2024 aPTT Coag (Bld) [Time] 32.8 s Normal 24.1-36.2 [facility] Comment on above: Performed By: #### B TS, L500.2500, L100.0100, L300.3900, L300.4310 ####[facility] [address] [place], [address] Prothrombin Time w/INRon INR Coag (PPP) [Relative time] 1.1 {INR} Normal [facility] Comment on above: Performed By: #### B TS, L500.2500, L100.0100, L300.3900, L300.4310 ####[facility] [address] [place], [address] PT Coag (PPP) [Time] 14.3 s Normal 11.7-14.9 [facility] Comment on above: Performed By: #### B TS, L500.2500, L100.0100, L300.3900, L300.4310 ####[facility] [address] [place], [address] Stool Occult Blood iFOBon STOB Positive Normal [facility] Comment on above: Performed By: #### M 100.7900 ####[facility] [address] [place], [address] Type AND Screenon 07-07-2024 Ab SCREEN GEL Negative Normal [facility] Comment on above: Order Comment: A Performed By: #### B TS, L500.2500, L100.0100, L300.3900, L300.4310 ####[facility] [address] [place], [address] Basic Metabolic Profile (BMP )on 06-25-2024 BUN/CRE 20.3 RATIO High 10-20 [facility] Comment on above: Performed By: #### L 500.2500, L100.0100 ####[facility] [address] [place], [address] Calcium [Mass/Vol] 9.2 mg/dL Normal 7.6-11.0 [facility] Comment on above: Performed By: #### L 500.2500, L100.0100 ####[facility] [address] [place], [address] Chloride [Moles/Vol] 102 mmol/L Normal 98-108 [facility] Comment on above: Performed By: #### L 500.2500, L100.0100 ####[facility] [address] [place], [address] CO2 [Moles/Vol] 20.7 mmol/L Low 21.0-32.0 [facility] Comment on above: Performed By: #### L 500.2500, L100.0100 ####[facility] [address] [place], [address] Creatinine [Mass/Vol] 0.83 mg/dL Normal 0.70-1.20 [facility] Comment on above: Performed By: #### L 500.2500, L100.0100 ####[facility] [facility] [address] [place], [address] ECRCL 62.70 ml/min Normal 50-250 [facility] Comment on above: Performed By: #### L 500.2500, L100.0100 ####[facility] [address] [place], [address] GAP 12 Normal 5-15 [facility] Comment on above: Performed By: #### L 500.2500, L100.0100 ####[facility] [address] [place], [address] GFR/1.73 sq M.predicted among non-blacks MDRD (S/P/Bld) [Vol rate/Area] 94 mL/min/{1.73_m2} Normal >60 [facility] Comment on above: Result Comment: mL/m in/1.73m2 CKD-EPI Creatinine Equation (2020) Performed By: #### L 500.2500, L100.0100 ####[facility] [address] [place], [address] Glucose [Mass/Vol] 110 mg/dL High 70-99 [facility] Comment on above: Performed By: #### L 500.2500, L100.0100 ####[facility] [address] [place], [address] Potassium [Moles/Vol] 3.9 mmol/L Normal 3.3-5.1 [facility] Comment on above: Result Comment: Hemo lysis present, Results??could be affected.?? Performed By: #### L 500.2500, L100.0100 ####[facility] [address] [place], [address] Sodium [Moles/Vol] 135 mmol/L Normal 133-145 [facility] Comment on above: Performed By: #### L 500.2500, L100.0100 ####[facility] [address] [place], [address] Urea nitrogen [Mass/Vol] 17 mg/dL Normal 4-19 [facility] Comment on above: Performed By: #### L 500.2500, L100.0100 ####[facility] [address] [place], [address] CBC W/Diff, Automatedon 05-1 5-2024 Absolute Lymph 1.43 X10 3/uL Normal 0.83-4.51 [facility] Comment on above: Performed By: #### L 500.2500, L100.0100 ####[facility] [address] [place], [address] Absolute Neut 8.2 X10 3/uL High 2.0-7.7 [facility] Comment on above: Performed By: #### L 500.2500, L100.0100 ####[facility] [address] [place], [address] Basophils/100 WBC (Bld) 0.3 % Normal 0-1 [facility] Comment on above: Performed By: #### L 500.2500, L100.0100 ####[facility] [address] [place], [address] Eosinophils/100 WBC (Bld) 2.5 % Normal 0-5 [facility] Comment on above: Performed By: #### L 500.2500, L100.0100 ####[facility] [address] [place], [address] Erythrocyte distribution width (RBC) [Ratio] 19.1 % High 11.6-14.6 [facility] Comment on above: Performed By: #### L 500.2500, L100.0100 ####[facility] [address] [place], [address] Hematocrit (Bld) [Volume fraction] 29.5 % Low 40-54 [facility] Comment on above: Performed By: #### L 500.2500, L100.0100 ####[facility] [address] [place], [address] Hemoglobin (Bld) [Mass/Vol] 9.5 g/dL Low 13.0-16.5 [facility] Comment on above: Performed By: #### L 500.2500, L100.0100 ####[facility] [address] [place], [address] IG% 0.700 Normal 0.0-0.9 [facility] Comment on above: Result Comment: IG% - Immature Granulocytes (promyelocytes, myelocytes andmetamyelocytes) > 1% indicates that a LEFT SHIFT is Present. Performed By: #### L 500.2500, L100.0100 ####[facility] [address] [place], [address] Lymphocytes/100 WBC (Bld) 13.3 % Low 19-41 [facility] Comment on above: Performed By: #### L 500.2500, L100.0100 ####[facility] [address] [place], [address] MCH (RBC) [Entitic mass] 26.5 pg Low 27.0-32.0 [facility] Comment on above: Performed By: #### L 500.2500, L100.0100 ####[facility] [address] [place], [address] MCHC (RBC) [Mass/Vol] 32.2 g/dL Normal 32-36 [facility] Comment on above: Performed By: #### L 500.2500, L100.0100 ####[facility] [address] [place], [address] MCV (RBC) [Entitic vol] 82.2 fL Normal 80-94 [facility] Comment on above: Performed By: #### L 500.2500, L100.0100 ####[facility] [address] [place], [address] Monocytes/100 WBC (Bld) 7.0 % Normal 0-10 [facility] Comment on above: Performed By: #### L 500.2500, L100.0100 ####[facility] [address] [place], [address] Neutrophils/100 WBC (Bld) 76.2 % High 47-70 [facility] Comment on above: Performed By: #### L 500.2500, L100.0100 ####[facility] [address] [place], [address] Nucleated RBC (Bld) [#/Vol] 0 10*3/uL Normal 0-5 [facility] Comment on above: Performed By: #### L 500.2500, L100.0100 ####[facility] [address] [place], [address] Platelet mean volume (Bld) [Entitic vol] 9.2 fL Normal 6.2-12.0 [facility] Comment on above: Performed By: #### L 500.2500, L100.0100 ####[facility] [address] [place], [address] Platelets (Bld) [#/Vol] 449 10*3/uL Normal 150-450 [facility] Comment on above: Performed By: #### L 500.2500, L100.0100 ####[facility] [address] [place], [address] RBC (Bld) [#/Vol] 3.59 10*6/uL Low 4.6-6.2 [facility] Comment on above: Performed By: #### L 500.2500, L100.0100 ####[facility] [address] [place], [address] RDW SD 56.4 fl High 35.1-43.9 [facility] Comment on above: Performed By: #### L 500.2500, L100.0100 ####[facility] [address] [place], [address] WBC (Bld) [#/Vol] 10.8 10*3/uL Normal 4.4-11.0 [facility] Comment on above: Performed By: #### L 500.2500, L100.0100 ####[facility] [address] [place], [address] ACT Activated Clotting Timeo n 06-24-2024 ACTk CLOT TIME 210 sec High 74-137 [facility] Comment on above: Performed By: #### L 9100.0100 ####[facility] [address] [place], [address] ACTk CLOT TIME 216 sec High 74-137 [facility] Comment on above: Performed By: #### L 9100.0100 ####[facility] [address] [place], [address] ACTk CLOT TIME 204 sec High 74-137 [facility] Comment on above: Performed By: #### L 9100.0100 ####[facility] [address] [place], [address] Operative Reporton Operative Report Normal [facility] Basic Metabolic Profile (BMP )on 06-19-2024 BUN/CRE 25.7 RATIO High 10-20 [facility] Comment on above: Performed By: #### L 100.0500, L500.2500 ####[facility] [address] [place], [address] Calcium [Mass/Vol] 9.2 mg/dL Normal 7.6-11.0 [facility] Comment on above: Performed By: #### L 100.0500, L500.2500 ####[facility] [address] [place], [address] Chloride [Moles/Vol] 106 mmol/L Normal 98-108 [facility] Comment on above: Performed By: #### L 100.0500, L500.2500 ####[facility] [address] [place], [address] CO2 [Moles/Vol] 19.6 mmol/L Low 21.0-32.0 [facility] Comment on above: Performed By: #### L 100.0500, L500.2500 ####[facility] [address] [place], [address] Creatinine [Mass/Vol] 0.81 mg/dL Normal 0.70-1.20 [facility] Comment on above: Performed By: #### L 100.0500, L500.2500 ####[facility] [address] [place], [address] ECRCL 64.24 ml/min Normal 50-250 [facility] Comment on above: Performed By: #### L 100.0500, L500.2500 ####[facility] [address] [place], [address] GAP 12 Normal 5-15 [facility] Comment on above: Performed By: #### L 100.0500, L500.2500 ####[facility] [address] [place], [address] GFR/1.73 sq M.predicted among non-blacks MDRD (S/P/Bld) [Vol rate/Area] 95 mL/min/{1.73_m2} Normal >60 [facility] Comment on above: Result Comment: mL/m in/1.73m2 CKD-EPI Creatinine Equation (2020) Performed By: #### L 100.0500, L500.2500 ####[facility] [address] [place], [address] Glucose [Mass/Vol] 117 mg/dL High 70-99 [facility] Comment on above: Performed By: #### L 100.0500, L500.2500 ####[facility] [address] [place], [address] Potassium [Moles/Vol] 3.9 mmol/L Normal 3.3-5.1 [facility] Comment on above: Performed By: #### L 100.0500, L500.2500 ####[facility] [address] [place], [address] Sodium [Moles/Vol] 138 mmol/L Normal 133-145 [facility] Comment on above: Performed By: #### L 100.0500, L500.2500 ####[facility] [address] [place], [address] Urea nitrogen [Mass/Vol] 21 mg/dL High 4-19 [facility] Comment on above: Performed By: #### L 100.0500, L500.2500 ####[facility] [address] [place], [address] CBC-Complete Blood Cnt No Di ffon 06-19-2024 Erythrocyte distribution width (RBC) [Ratio] 18.2 % High 11.6-14.6 [facility] Comment on above: Performed By: #### L 100.0500, L500.2500 ####[facility] [address] [place], [address] Hematocrit (Bld) [Volume fraction] 30.2 % Low 40-54 [facility] Comment on above: Performed By: #### L 100.0500, L500.2500 ####[facility] [address] [place], [address] Hemoglobin (Bld) [Mass/Vol] 9.3 g/dL Low 13.0-16.5 [facility] Comment on above: Performed By: #### L 100.0500, L500.2500 ####[facility] [address] [place], [address] MCH (RBC) [Entitic mass] 25.8 pg Low 27.0-32.0 [facility] Comment on above: Performed By: #### L 100.0500, L500.2500 ####[facility] [address] [place], [address] MCHC (RBC) [Mass/Vol] 30.8 g/dL Low 32-36 [facility] Comment on above: Performed By: #### L 100.0500, L500.2500 ####[facility] [address] [place], [address] MCV (RBC) [Entitic vol] 83.9 fL Normal 80-94 [facility] Comment on above: Performed By: #### L 100.0500, L500.2500 ####[facility] [address] [place], [address] Platelet mean volume (Bld) [Entitic vol] 10.0 fL Normal 6.2-12.0 [facility] Comment on above: Performed By: #### L 100.0500, L500.2500 ####[facility] [address] [place], [address] Platelets (Bld) [#/Vol] 320 10*3/uL Normal 150-450 [facility] Comment on above: Performed By: #### L 100.0500, L500.2500 ####[facility] [address] [place], [address] RBC (Bld) [#/Vol] 3.60 10*6/uL Low 4.6-6.2 [facility] Comment on above: Performed By: #### L 100.0500, L500.2500 ####[facility] [address] [place], [address] RDW SD 54.9 fl High 35.1-43.9 [facility] Comment on above: Performed By: #### L 100.0500, L500.2500 ####[facility] [address] [place], [address] WBC (Bld) [#/Vol] 7.6 10*3/uL Normal 4.4-11.0 [facility] Comment on above: Performed By: #### L 100.0500, L500.2500 ####[facility] [address] [place], [address] Gastroenterology Visit Repor ton 06-19-2024 Gastroenterology Visit Report Normal [facility] Basic Metabolic Profile (BMP )on 06-14-2024 BUN Normal 4-19 [facility] Comment on above: Result Comment: Canc elled via OM: Order cancelled - Patient discharged Performed By: #### L 500.2500, L100.0100 ####[facility] [address] [place], [address] BUN/CRE Normal 10-20 [facility] Comment on above: Result Comment: Canc elled via OM: Order cancelled - Patient discharged Performed By: #### L 500.2500, L100.0100 ####[facility] [address] [place], [address] Calcium Normal 7.6-11.0 [facility] Comment on above: Result Comment: Canc elled via OM: Order cancelled - Patient discharged Performed By: #### L 500.2500, L100.0100 ####[facility] [address] [place], [address] CL Normal 98-108 [facility] Comment on above: Result Comment: Canc elled via OM: Order cancelled - Patient discharged Performed By: #### L 500.2500, L100.0100 ####[facility] [address] [place], [address] CO2 Normal 21.0-32.0 [facility] Comment on above: Result Comment: Canc elled via OM: Order cancelled - Patient discharged Performed By: #### L 500.2500, L100.0100 ####[facility] [address] [place], [address] CREAT,SERUM Normal 0.70-1.20 [facility] Comment on above: Result Comment: Canc elled via OM: Order cancelled - Patient discharged Performed By: #### L 500.2500, L100.0100 ####[facility] [address] [place], [address] eGFR Normal >60 [facility] Comment on above: Result Comment: Canc elled via OM: Order cancelled - Patient discharged Performed By: #### L 500.2500, L100.0100 ####[facility] [address] [place], [address] GAP Normal 5-15 [facility] Comment on above: Result Comment: Canc elled via OM: Order cancelled - Patient discharged Performed By: #### L 500.2500, L100.0100 ####[facility] [address] [place], [address] GLU Normal 70-99 [facility] Comment on above: Result Comment: Canc elled via OM: Order cancelled - Patient discharged Performed By: #### L 500.2500, L100.0100 ####[facility] [address] [place], [address] Potassium Normal 3.3-5.1 [facility] Comment on above: Result Comment: Canc elled via OM: Order cancelled - Patient discharged Performed By: #### L 500.2500, L100.0100 ####[facility] [address] [place], [address] Basic Metabolic Profile (BMP) Normal 133-145 [facility] Comment on above: Result Comment: Canc elled via OM: Order cancelled - Patient discharged Performed By: #### L 500.2500, L100.0100 ####[facility] [address] [place], [address] CBC W/Diff, Automatedon 05-0 4-2025 Absolute Neut Normal 2.0-7.7 [facility] Comment on above: Result Comment: Canc elled via OM: Order cancelled - Patient discharged Performed By: #### L 500.2500, L100.0100 ####[facility] [address] [place], [address] HCT Normal 40-54 [facility] Comment on above: Result Comment: Canc elled via OM: Order cancelled - Patient discharged Performed By: #### L 500.2500, L100.0100 ####[facility] [address] [place], [address] HGB Normal 13.0-16.5 [facility] Comment on above: Result Comment: Canc elled via OM: Order cancelled - Patient discharged Performed By: #### L 500.2500, L100.0100 ####[facility] [address] [place], [address] MCH Normal 27.0-32.0 [facility] Comment on above: Result Comment: Canc elled via OM: Order cancelled - Patient discharged Performed By: #### L 500.2500, L100.0100 ####[facility] [address] [place], [address] MCHC Normal 32-36 [facility] Comment on above: Result Comment: Canc elled via OM: Order cancelled - Patient discharged Performed By: #### L 500.2500, L100.0100 ####[facility] [address] [place], [address] MCV Normal 80-94 [facility] Comment on above: Result Comment: Canc elled via OM: Order cancelled - Patient discharged Performed By: #### L 500.2500, L100.0100 ####[facility] [address] [place], [address] NEUT% Normal 47-70 [facility] Comment on above: Result Comment: Canc elled via OM: Order cancelled - Patient discharged Performed By: #### L 500.2500, L100.0100 ####[facility] [address] [place], [address] PLT Normal 150-450 [facility] Comment on above: Result Comment: Canc elled via OM: Order cancelled - Patient discharged Performed By: #### L 500.2500, L100.0100 ####[facility] [address] [place], [address] RBC Normal 4.6-6.2 [facility] Comment on above: Result Comment: Canc elled via OM: Order cancelled - Patient discharged Performed By: #### L 500.2500, L100.0100 ####[facility] [address] [place], [address] RDW CV Normal 11.6-14.6 [facility] Comment on above: Result Comment: Canc elled via OM: Order cancelled - Patient discharged Performed By: #### L 500.2500, L100.0100 ####[facility] [address] [place], [address] RDW SD Normal 35.1-43.9 [facility] Comment on above: Result Comment: Canc elled via OM: Order cancelled - Patient discharged Performed By: #### L 500.2500, L100.0100 ####[facility] [address] [place], [address] WBC Normal 4.4-11.0 [facility] Comment on above: Result Comment: Canc elled via OM: Order cancelled - Patient discharged Performed By: #### L 500.2500, L100.0100 ####[facility] [address] [place], [address] Basic Metabolic Profile (BMP )on 06-13-2024 BUN/CRE 14.1 RATIO Normal 10-20 [facility] Comment on above: Performed By: #### L 500.2500, L100.0100 ####[facility] [address] [place], [address] Calcium [Mass/Vol] 9.5 mg/dL Normal 7.6-11.0 [facility] Comment on above: Performed By: #### L 500.2500, L100.0100 ####[facility] [address] [place], [address] Chloride [Moles/Vol] 102 mmol/L Normal 98-108 [facility] Comment on above: Performed By: #### L 500.2500, L100.0100 ####[facility] [address] [place], [address] CO2 [Moles/Vol] 18.9 mmol/L Low 21.0-32.0 [facility] Comment on above: Performed By: #### L 500.2500, L100.0100 ####[facility] [address] [place], [address] Creatinine [Mass/Vol] 1.01 mg/dL Normal 0.70-1.20 [facility] Comment on above: Performed By: #### L 500.2500, L100.0100 ####[facility] [address] [place], [address] ECRCL 49.19 ml/min Low 50-250 [facility] Comment on above: Performed By: #### L 500.2500, L100.0100 ####[facility] [address] [place], [address] GAP 16 High 5-15 [facility] Comment on above: Performed By: #### L 500.2500, L100.0100 ####[facility] [address] [place], [address] GFR/1.73 sq M.predicted among non-blacks MDRD (S/P/Bld) [Vol rate/Area] 80 mL/min/{1.73_m2} Normal >60 [facility] Comment on above: Result Comment: mL/m in/1.73m2 CKD-EPI Creatinine Equation (2020) Performed By: #### L 500.2500, L100.0100 ####[facility] [address] [place], [address] Glucose [Mass/Vol] 101 mg/dL High 70-99 [facility] Comment on above: Performed By: #### L 500.2500, L100.0100 ####[facility] [address] [place], [address] Potassium [Moles/Vol] 3.7 mmol/L Normal 3.3-5.1 [facility] Comment on above: Performed By: #### L 500.2500, L100.0100 ####[facility] [address] [place], [address] Sodium [Moles/Vol] 137 mmol/L Normal 133-145 [facility] Comment on above: Performed By: #### L 500.2500, L100.0100 ####[facility] [address] [place], [address] Urea nitrogen [Mass/Vol] 14 mg/dL Normal 4-19 [facility] Comment on above: Performed By: #### L 500.2500, L100.0100 ####[facility] [address] [place], [address] CBC W/Diff, Automatedon 05-0 -2024 Absolute Lymph 2.12 X10 3/uL Normal 0.83-4.51 [facility] Comment on above: Performed By: #### L 500.2500, L100.0100 ####[facility] [address] [place], [address] Absolute Neut 3.5 X10 3/uL Normal 2.0-7.7 [facility] Comment on above: Performed By: #### L 500.2500, L100.0100 ####[facility] [address] [place], [address] Basophils/100 WBC (Bld) 0.3 % Normal 0-1 [facility] Comment on above: Performed By: #### L 500.2500, L100.0100 ####[facility] [address] [place], [address] Eosinophils/100 WBC (Bld) 3.1 % Normal 0-5 [facility] Comment on above: Performed By: #### L 500.2500, L100.0100 ####[facility] [address] [place], [address] Erythrocyte distribution width (RBC) [Ratio] 16.7 % High 11.6-14.6 [facility] Comment on above: Performed By: #### L 500.2500, L100.0100 ####[facility] [address] [place], [address] Hematocrit (Bld) [Volume fraction] 36.0 % Low 40-54 [facility] Comment on above: Performed By: #### L 500.2500, L100.0100 ####[facility] [address] [place], [address] Hemoglobin (Bld) [Mass/Vol] 11.5 g/dL Low 13.0-16.5 [facility] Comment on above: Performed By: #### L 500.2500, L100.0100 ####[facility] [address] [place], [address] IG% 0.300 Normal 0.0-0.9 [facility] Comment on above: Result Comment: IG% - Immature Granulocytes (promyelocytes, myelocytes andmetamyelocytes) > 1% indicates that a LEFT SHIFT is Present. Performed By: #### L 500.2500, L100.0100 ####[facility] [address] [place], [address] Lymphocytes/100 WBC (Bld) 31.8 % Normal 19-41 [facility] Comment on above: Performed By: #### L 500.2500, L100.0100 ####[facility] [address] [place], [address] MCH (RBC) [Entitic mass] 25.7 pg Low 27.0-32.0 [facility] Comment on above: Performed By: #### L 500.2500, L100.0100 ####[facility] [address] [place], [address] MCHC (RBC) [Mass/Vol] 31.9 g/dL Low 32-36 [facility] Comment on above: Performed By: #### L 500.2500, L100.0100 ####[facility] [address] [place], [address] MCV (RBC) [Entitic vol] 80.5 fL Normal 80-94 [facility] Comment on above: Performed By: #### L 500.2500, L100.0100 ####[facility] [address] [place], [address] Monocytes/100 WBC (Bld) 11.8 % High 0-10 [facility] Comment on above: Performed By: #### L 500.2500, L100.0100 ####[facility] [address] [place], [address] Neutrophils/100 WBC (Bld) 52.7 % Normal 47-70 [facility] Comment on above: Performed By: #### L 500.2500, L100.0100 ####[facility] [address] [place], [address] Nucleated RBC (Bld) [#/Vol] 0 10*3/uL Normal 0-5 [facility] Comment on above: Performed By: #### L 500.2500, L100.0100 ####[facility] [address] [place], [address] Platelet mean volume (Bld) [Entitic vol] 9.1 fL Normal 6.2-12.0 [facility] Comment on above: Performed By: #### L 500.2500, L100.0100 ####[facility] [address] [place], [address] Platelets (Bld) [#/Vol] 346 10*3/uL Normal 150-450 [facility] Comment on above: Performed By: #### L 500.2500, L100.0100 ####[facility] [address] [place], [address] RBC (Bld) [#/Vol] 4.47 10*6/uL Low 4.6-6.2 [facility] Comment on above: Performed By: #### L 500.2500, L100.0100 ####[facility] [address] [place], [address] RDW SD 48.7 fl High 35.1-43.9 [facility] Comment on above: Performed By: #### L 500.2500, L100.0100 ####[facility] [address] [place], [address] WBC (Bld) [#/Vol] 6.7 10*3/uL Normal 4.4-11.0 [facility] Comment on above: Performed By: #### L 500.2500, L100.0100 ####[facility] [address] [place], [address] Colonoscopy Reporton 025 Colonoscopy Report Normal [facility] MR/POSTOP.ANEon 06-13-2024 MR/POSTOP.ANE Normal [facility] MR/XQPJHONB0ho 06-13-2024 MR/POSTOPAN2 Normal [facility] Surgery Specimen Level Nikko 06-13-2024 Surgery Specimen Level IV Normal [facility] Comment on above: Performed By: #### P SUIV ####[facility] [address] [place], [address] 12 Lead EKGon 06-12-2024 12 Lead EKG Normal [facility] Basic Metabolic Profile (BMP )on 06-12-2024 BUN/CRE 13.5 RATIO Normal 10-20 [facility] Comment on above: Performed By: #### L 100.0100, L500.3400, L501.5200, L501.2300, L500.4100, L500.2500 ####[facility] [address] [place], [address] Calcium [Mass/Vol] 9.8 mg/dL Normal 7.6-11.0 [facility] Comment on above: Performed By: #### L 100.0100, L500.3400, L501.5200, L501.2300, L500.4100, L500.2500 ####[facility] [address] [place], [address] Chloride [Moles/Vol] 106 mmol/L Normal 98-108 [facility] Comment on above: Performed By: #### L 100.0100, L500.3400, L501.5200, L501.2300, L500.4100, L500.2500 ####[facility] [address] [place], [address] CO2 [Moles/Vol] 22.0 mmol/L Normal 21.0-32.0 [facility] Comment on above: Performed By: #### L 100.0100, L500.3400, L501.5200, L501.2300, L500.4100, L500.2500 ####[facility] [address] [place], [address] Creatinine [Mass/Vol] 0.98 mg/dL Normal 0.70-1.20 [facility] Comment on above: Performed By: #### L 100.0100, L500.3400, L501.5200, L501.2300, L500.4100, L500.2500 ####[facility] [address] [place], [address] ECRCL 50.69 ml/min Normal 50-250 [facility] Comment on above: Performed By: #### L 100.0100, L500.3400, L501.5200, L501.2300, L500.4100, L500.2500 ####[facility] [address] [place], [address] GAP 12 Normal 5-15 [facility] Comment on above: Performed By: #### L 100.0100, L500.3400, L501.5200, L501.2300, L500.4100, L500.2500 ####[facility] [address] [place], [address] GFR/1.73 sq M.predicted among non-blacks MDRD (S/P/Bld) [Vol rate/Area] 83 mL/min/{1.73_m2} Normal >60 [facility] Comment on above: Result Comment: mL/m in/1.73m2 CKD-EPI Creatinine Equation (2020) Performed By: #### L 100.0100, L500.3400, L501.5200, L501.2300, L500.4100, L500.2500 ####[facility] [address] [place], [address] Glucose [Mass/Vol] 90 mg/dL Normal 70-99 [facility] Comment on above: Performed By: #### L 100.0100, L500.3400, L501.5200, L501.2300, L500.4100, L500.2500 ####[facility] [address] [facility] [address] Potassium [Moles/Vol] 4.3 mmol/L Normal 3.3-5.1 [facility] Comment on above: Result Comment: Hemo lysis present, Results??could be affected.?? Performed By: #### L 100.0100, L500.3400, L501.5200, L501.2300, L500.4100, L500.2500 ####[facility] [address] [place], [address] Sodium [Moles/Vol] 140 mmol/L Normal 133-145 [facility] Comment on above: Performed By: #### L 100.0100, L500.3400, L501.5200, L501.2300, L500.4100, L500.2500 ####[facility] [address] [place], [address] Urea nitrogen [Mass/Vol] 13 mg/dL Normal 4-19 [facility] Comment on above: Performed By: #### L 100.0100, L500.3400, L501.5200, L501.2300, L500.4100, L500.2500 ####[facility] [address] [place], [address] CBC W/Diff, Automatedon 05-0 2-2024 Absolute Lymph 1.50 X10 3/uL Normal 0.83-4.51 [facility] Comment on above: Performed By: #### L 100.0100, L500.3400, L501.5200, L501.2300, L500.4100, L500.2500 ####[facility] [address] [place], [address] Absolute Neut 4.8 X10 3/uL Normal 2.0-7.7 [facility] Comment on above: Performed By: #### L 100.0100, L500.3400, L501.5200, L501.2300, L500.4100, L500.2500 ####[facility] [address] [place], [address] Basophils/100 WBC (Bld) 0.5 % Normal 0-1 [facility] Comment on above: Performed By: #### L 100.0100, L500.3400, L501.5200, L501.2300, L500.4100, L500.2500 ####[facility] [address] [place], [address] Eosinophils/100 WBC (Bld) 3.1 % Normal 0-5 [facility] Comment on above: Performed By: #### L 100.0100, L500.3400, L501.5200, L501.2300, L500.4100, L500.2500 ####[facility] [address] [place], [address] Erythrocyte distribution width (RBC) [Ratio] 16.4 % High 11.6-14.6 [facility] Comment on above: Performed By: #### L 100.0100, L500.3400, L501.5200, L501.2300, L500.4100, L500.2500 ####[facility] [address] [place], [address] Hematocrit (Bld) [Volume fraction] 36.1 % Low 40-54 [facility] Comment on above: Performed By: #### L 100.0100, L500.3400, L501.5200, L501.2300, L500.4100, L500.2500 ####[facility] [address] [place], [address] Hemoglobin (Bld) [Mass/Vol] 11.5 g/dL Low 13.0-16.5 [facility] Comment on above: Performed By: #### L 100.0100, L500.3400, L501.5200, L501.2300, L500.4100, L500.2500 ####[facility] [address] [place], [address] IG% 0.400 Normal 0.0-0.9 [facility] Comment on above: Result Comment: IG% - Immature Granulocytes (promyelocytes, myelocytes andmetamyelocytes) > 1% indicates that a LEFT SHIFT is Present. Performed By: #### L 100.0100, L500.3400, L501.5200, L501.2300, L500.4100, L500.2500 ####[facility] [address] [place], [address] Lymphocytes/100 WBC (Bld) 20.0 % Normal 19-41 [facility] Comment on above: Performed By: #### L 100.0100, L500.3400, L501.5200, L501.2300, L500.4100, L500.2500 ####[facility] [address] [place], [address] MCH (RBC) [Entitic mass] 25.8 pg Low 27.0-32.0 [facility] Comment on above: Performed By: #### L 100.0100, L500.3400, L501.5200, L501.2300, L500.4100, L500.2500 ####[facility] [address] [place], [address] MCHC (RBC) [Mass/Vol] 31.9 g/dL Low 32-36 [facility] Comment on above: Performed By: #### L 100.0100, L500.3400, L501.5200, L501.2300, L500.4100, L500.2500 ####[facility] [address] [place], [address] MCV (RBC) [Entitic vol] 81.1 fL Normal 80-94 [facility] Comment on above: Performed By: #### L 100.0100, L500.3400, L501.5200, L501.2300, L500.4100, L500.2500 ####[facility] [address] [place], [address] Monocytes/100 WBC (Bld) 12.0 % High 0-10 [facility] Comment on above: Performed By: #### L 100.0100, L500.3400, L501.5200, L501.2300, L500.4100, L500.2500 ####[facility] [address] [place], [address] Neutrophils/100 WBC (Bld) 64.0 % Normal 47-70 [facility] Comment on above: Performed By: #### L 100.0100, L500.3400, L501.5200, L501.2300, L500.4100, L500.2500 ####[facility] [address] [place], [address] Nucleated RBC (Bld) [#/Vol] 0 10*3/uL Normal 0-5 [facility] Comment on above: Performed By: #### L 100.0100, L500.3400, L501.5200, L501.2300, L500.4100, L500.2500 ####[facility] [address] [place], [address] Platelet mean volume (Bld) [Entitic vol] 9.7 fL Normal 6.2-12.0 [facility] Comment on above: Performed By: #### L 100.0100, L500.3400, L501.5200, L501.2300, L500.4100, L500.2500 ####[facility] [address] [place], [address] Platelets (Bld) [#/Vol] 370 10*3/uL Normal 150-450 [facility] Comment on above: Performed By: #### L 100.0100, L500.3400, L501.5200, L501.2300, L500.4100, L500.2500 ####[facility] [address] [place], [address] RBC (Bld) [#/Vol] 4.45 10*6/uL Low 4.6-6.2 [facility] Comment on above: Performed By: #### L 100.0100, L500.3400, L501.5200, L501.2300, L500.4100, L500.2500 ####[facility] [address] [place], [address] RDW SD 48.2 fl High 35.1-43.9 [facility] Comment on above: Performed By: #### L 100.0100, L500.3400, L501.5200, L501.2300, L500.4100, L500.2500 ####[facility] [address] [place], [address] WBC (Bld) [#/Vol] 7.5 10*3/uL Normal 4.4-11.0 [facility] Comment on above: Performed By: #### L 100.0100, L500.3400, L501.5200, L501.2300, L500.4100, L500.2500 ####[facility] [address] [place], [address] EGD Reporton 06-12-2024 EGD Report Normal [facility] Lipid Profileon 06-12-2024 CHOL:HDL 1.64 Normal [facility] Comment on above: Performed By: #### L 100.0100, L500.3400, L501.5200, L501.2300, L500.4100, L500.2500 ####[facility] [address] [place], [address] Cholesterol [Mass/Vol] 107 mg/dL Normal <=200 [facility] Comment on above: Result Comment: Chol esterol level, Desirable <200 mg/dLBorderline high cholesterol 200-239 mg/dLHigh cholesterol >=240 mg/dLRecommendations of the NCEP Adult Treatment Panel for thefollowing risk-cutoff thresholds for the [place] Americanpulation. Performed By: #### L 100.0100, L500.3400, L501.5200, L501.2300, L500.4100, L500.2500 ####[facility] [address] [place], [address] Cholesterol in HDL [Mass/Vol] 65 mg/dL Normal [facility] Comment on above: Result Comment: Ramona onal Cholesterol Education Program (NCEP) guidelines:<40 mg/dL: Low HDL-cholesterol (major risk factor for CHD)>= 60 mg/dL: High HDL-cholesterol (negative risk factor forCHD)HDL-cholesterol is affected by a number of factors, e.g.smoking, exercise, hormones, sex and age. Performed By: #### L 100.0100, L500.3400, L501.5200, L501.2300, L500.4100, L500.2500 ####[facility] [address] [place], [address] Cholesterol in LDL [Mass/Vol] 32 mg/dL Normal [facility] Comment on above: Result Comment: Bord emmofi=147-295 mg/dL Higher Zvfn=810 mg/dL or greater Performed By: #### L 100.0100, L500.3400, L501.5200, L501.2300, L500.4100, L500.2500 ####[facility] [address] [place], [address] Cholesterol in VLDL [Mass/Vol] 10 mg/dL Normal 5-40 [facility] Comment on above: Performed By: #### L 100.0100, L500.3400, L501.5200, L501.2300, L500.4100, L500.2500 ####[facility] [address] [place], [address] Triglyceride [Mass/Vol] 51 mg/dL Normal [facility] Comment on above: Result Comment: The drugs N-Acetylcysteine and Metamizole may falselydepress this assay.Normal range: <150 mg/dLBorderline High: 150-199 mg/dLHigh: 200-499 mg/dLVery High: >500 mg/dL Performed By: #### L 100.0100, L500.3400, L501.5200, L501.2300, L500.4100, L500.2500 ####[facility] [address] [place], [address] Liver Profileon 06-12-2024 Albumin [Mass/Vol] 4.5 g/dL Normal 3.4-4.8 [facility] Comment on above: Performed By: #### L 100.0100, L500.3400, L501.5200, L501.2300, L500.4100, L500.2500 ####[facility] [address] [place], [address] ALK PHOS 67 U/L Normal 40-129 [facility] Comment on above: Performed By: #### L 100.0100, L500.3400, L501.5200, L501.2300, L500.4100, L500.2500 ####[facility] [address] [place], [address] ALT [Catalytic activity/Vol] 20 U/L Normal <=46 [facility] Comment on above: Performed By: #### L 100.0100, L500.3400, L501.5200, L501.2300, L500.4100, L500.2500 ####[facility] [address] [place], [address] AST [Catalytic activity/Vol] 33 U/L Normal <=37 [facility] Comment on above: Result Comment: Hemo lysis present, Results??could be affected.?? Performed By: #### L 100.0100, L500.3400, L501.5200, L501.2300, L500.4100, L500.2500 ####[facility] [address] [place], [address] Bilirubin [Mass/Vol] 0.28 mg/dL Normal 0.00-1.30 [facility] Comment on above: Performed By: #### L 100.0100, L500.3400, L501.5200, L501.2300, L500.4100, L500.2500 ####[facility] [address] [place], [address] Bilirubin.direct [Mass/Vol] 0.14 mg/dL Normal 0.00-0.30 [facility] Comment on above: Result Comment: Hemo lysis present, Results??could be affected.?? Performed By: #### L 100.0100, L500.3400, L501.5200, L501.2300, L500.4100, L500.2500 ####[facility] [address] [place], [address] Globulin (S) [Mass/Vol] 3.1 g/dL Normal 2.2-4.2 [facility] Comment on above: Performed By: #### L 100.0100, L500.3400, L501.5200, L501.2300, L500.4100, L500.2500 ####[facility] [address] [place], [address] T PROT 7.6 g/dL Normal 5.9-8.4 [facility] Comment on above: Performed By: #### L 100.0100, L500.3400, L501.5200, L501.2300, L500.4100, L500.2500 ####[facility] [address] [place], [address] MR/POSTOP.ANEon 06-12-2024 MR/POSTOP.ANE Normal [facility] Magnesiumon 06-12-2024 Magnesium [Mass/Vol] 2.4 mg/dL High 1.5-2.2 [facility] Comment on above: Performed By: #### L 100.0100, L500.3400, L501.5200, L501.2300, L500.4100, L500.2500 ####[facility] [address] [place], [address] Phosphoruson 06-12-2024 Phosphate [Mass/Vol] 3.8 mg/dL Normal 2.7-4.5 [facility] Comment on above: Performed By: #### L 100.0100, L500.3400, L501.5200, L501.2300, L500.4100, L500.2500 ####[facility] [address] [place], [address] Basic Metabolic Profile (BMP )on 06-11-2024 BUN/CRE 13.8 RATIO Normal 10-20 [facility] Comment on above: Performed By: #### L 100.0100, L500.2500 ####[facility] [address] [place], [address] Calcium [Mass/Vol] 9.5 mg/dL Normal 7.6-11.0 [facility] Comment on above: Performed By: #### L 100.0100, L500.2500 ####[facility] [address] [place], [address] Chloride [Moles/Vol] 107 mmol/L Normal 98-108 [facility] Comment on above: Performed By: #### L 100.0100, L500.2500 ####[facility] [address] [place], [address] CO2 [Moles/Vol] 21.1 mmol/L Normal 21.0-32.0 [facility] Comment on above: Performed By: #### L 100.0100, L500.2500 ####[facility] [address] [place], [address] Creatinine [Mass/Vol] 0.97 mg/dL Normal 0.70-1.20 [facility] Comment on above: Performed By: #### L 100.0100, L500.2500 ####[facility] [address] [place], [address] ECRCL 51.22 ml/min Normal 50-250 [facility] Comment on above: Performed By: #### L 100.0100, L500.2500 ####[facility] [address] [place], [address] GAP 10 Normal 5-15 [facility] Comment on above: Performed By: #### L 100.0100, L500.2500 ####[facility] [address] [place], [address] GFR/1.73 sq M.predicted among non-blacks MDRD (S/P/Bld) [Vol rate/Area] 84 mL/min/{1.73_m2} Normal >60 [facility] Comment on above: Result Comment: mL/m in/1.73m2 CKD-EPI Creatinine Equation (2020) Performed By: #### L 100.0100, L500.2500 ####[facility] [address] [place], [address] Glucose [Mass/Vol] 98 mg/dL Normal 70-99 [facility] Comment on above: Performed By: #### L 100.0100, L500.2500 ####[facility] [address] [place], [address] Potassium [Moles/Vol] 4.0 mmol/L Normal 3.3-5.1 [facility] Comment on above: Performed By: #### L 100.0100, L500.2500 ####[facility] [address] [place], [address] Sodium [Moles/Vol] 138 mmol/L Normal 133-145 [facility] Comment on above: Performed By: #### L 100.0100, L500.2500 ####[facility] [address] [place], [address] Urea nitrogen [Mass/Vol] 13 mg/dL Normal 4-19 [facility] Comment on above: Performed By: #### L 100.0100, L500.2500 ####[facility] [address] [place], [address] CBC W/Diff, Automatedon 05-0 -2024 Absolute Lymph 1.58 X10 3/uL Normal 0.83-4.51 [facility] Comment on above: Performed By: #### L 100.0100, L500.2500 ####[facility] [address] [place], [address] Absolute Neut 4.4 X10 3/uL Normal 2.0-7.7 [facility] Comment on above: Performed By: #### L 100.0100, L500.2500 ####[facility] [address] [place], [address] Basophils/100 WBC (Bld) 0.3 % Normal 0-1 [facility] Comment on above: Performed By: #### L 100.0100, L500.2500 ####[facility] [address] [place], [address] Eosinophils/100 WBC (Bld) 2.9 % Normal 0-5 [facility] Comment on above: Performed By: #### L 100.0100, L500.2500 ####[facility] [address] [place], [address] Erythrocyte distribution width (RBC) [Ratio] 15.9 % High 11.6-14.6 [facility] Comment on above: Performed By: #### L 100.0100, L500.2500 ####[facility] [address] [place], [address] Hematocrit (Bld) [Volume fraction] 32.1 % Low 40-54 [facility] Comment on above: Performed By: #### L 100.0100, L500.2500 ####[facility] [address] [place], [address] Hemoglobin (Bld) [Mass/Vol] 10.3 g/dL Low 13.0-16.5 [facility] Comment on above: Performed By: #### L 100.0100, L500.2500 ####[facility] [address] [place], [address] IG% 0.300 Normal 0.0-0.9 [facility] Comment on above: Result Comment: IG% - Immature Granulocytes (promyelocytes, myelocytes andmetamyelocytes) > 1% indicates that a LEFT SHIFT is Present. Performed By: #### L 100.0100, L500.2500 ####[facility] [address] [place], [address] Lymphocytes/100 WBC (Bld) 23.0 % Normal 19-41 [facility] Comment on above: Performed By: #### L 100.0100, L500.2500 ####[facility] [address] [place], [address] MCH (RBC) [Entitic mass] 26.1 pg Low 27.0-32.0 [facility] Comment on above: Performed By: #### L 100.0100, L500.2500 ####[facility] [address] [place], [address] MCHC (RBC) [Mass/Vol] 32.1 g/dL Normal 32-36 [facility] Comment on above: Performed By: #### L 100.0100, L500.2500 ####[facility] [address] [place], [address] MCV (RBC) [Entitic vol] 81.3 fL Normal 80-94 [facility] Comment on above: Performed By: #### L 100.0100, L500.2500 ####[facility] [address] [place], [address] Monocytes/100 WBC (Bld) 9.6 % Normal 0-10 [facility] Comment on above: Performed By: #### L 100.0100, L500.2500 ####[facility] [address] [place], [address] Neutrophils/100 WBC (Bld) 63.9 % Normal 47-70 [facility] Comment on above: Performed By: #### L 100.0100, L500.2500 ####[facility] [address] [place], [address] Nucleated RBC (Bld) [#/Vol] 0 10*3/uL Normal 0-5 [facility] Comment on above: Performed By: #### L 100.0100, L500.2500 ####[facility] [address] [place], [address] Platelet mean volume (Bld) [Entitic vol] 9.2 fL Normal 6.2-12.0 [facility] Comment on above: Performed By: #### L 100.0100, L500.2500 ####[facility] [address] [place], [address] Platelets (Bld) [#/Vol] 310 10*3/uL Normal 150-450 [facility] Comment on above: Performed By: #### L 100.0100, L500.2500 ####[facility] [address] [place], [address] RBC (Bld) [#/Vol] 3.95 10*6/uL Low 4.6-6.2 [facility] Comment on above: Performed By: #### L 100.0100, L500.2500 ####[facility] [address] [place], [address] RDW SD 47.6 fl High 35.1-43.9 [facility] Comment on above: Performed By: #### L 100.0100, L500.2500 ####[facility] [address] [place], [address] WBC (Bld) [#/Vol] 6.9 10*3/uL Normal 4.4-11.0 [facility] Comment on above: Performed By: #### L 100.0100, L500.2500 ####[facility] [address] [place], [address] Consultation - Surgicalon Consultation - Surgical Normal [facility] MR/CON.PCM.GIon 06-11-2024 MR/CON.PCM.GI Normal [facility] BRCon 06-10-2024 RC Normal [facility] Comment on above: Result Comment: [id number] OP RC TRANSFUSED 06/10/24 [id number] OP RC TRANSFUSED 06/10/24 1640 Performed By: #### B RC ####[facility] [address] [place], [address] Basic Metabolic Profile (BMP )on 06-10-2024 BUN/CRE 17.2 RATIO Normal 10-20 [facility] Comment on above: Performed By: #### L 100.0100, L500.2500, L300.3900, L300.4310 ####[facility] [address] [place], [address] Calcium [Mass/Vol] 9.0 mg/dL Normal 7.6-11.0 [facility] Comment on above: Performed By: #### L 100.0100, L500.2500, L300.3900, L300.4310 ####[facility] [address] [place], [address] Chloride [Moles/Vol] 107 mmol/L Normal 98-108 [facility] Comment on above: Performed By: #### L 100.0100, L500.2500, L300.3900, L300.4310 ####[facility] [address] [place], [address] CO2 [Moles/Vol] 21.5 mmol/L Normal 21.0-32.0 [facility] Comment on above: Performed By: #### L 100.0100, L500.2500, L300.3900, L300.4310 ####[facility] [address] [place], [address] Creatinine [Mass/Vol] 0.97 mg/dL Normal 0.70-1.20 [facility] Comment on above: Performed By: #### L 100.0100, L500.2500, L300.3900, L300.4310 ####[facility] [address] [place], [address] ECRCL 58.93 ml/min Normal 50-250 [facility] Comment on above: Performed By: #### L 100.0100, L500.2500, L300.3900, L300.4310 ####[facility] [address] [place], [address] GAP 11 Normal 5-15 [facility] Comment on above: Performed By: #### L 100.0100, L500.2500, L300.3900, L300.4310 ####[facility] [address] [place], [address] GFR/1.73 sq M.predicted among non-blacks MDRD (S/P/Bld) [Vol rate/Area] 84 mL/min/{1.73_m2} Normal >60 [facility] Comment on above: Result Comment: mL/m in/1.73m2 CKD-EPI Creatinine Equation (2020) Performed By: #### L 100.0100, L500.2500, L300.3900, L300.4310 ####[facility] [address] [place], [address] Glucose [Mass/Vol] 95 mg/dL Normal 70-99 [facility] Comment on above: Performed By: #### L 100.0100, L500.2500, L300.3900, L300.4310 ####[facility] [address] [place], [address] Potassium [Moles/Vol] 3.9 mmol/L Normal 3.3-5.1 [facility] Comment on above: Performed By: #### L 100.0100, L500.2500, L300.3900, L300.4310 ####[facility] [address] [place], [address] Sodium [Moles/Vol] 139 mmol/L Normal 133-145 [facility] Comment on above: Performed By: #### L 100.0100, L500.2500, L300.3900, L300.4310 ####[facility] [address] [place], [address] Urea nitrogen [Mass/Vol] 17 mg/dL Normal 4-19 [facility] Comment on above: Performed By: #### L 100.0100, L500.2500, L300.3900, L300.4310 ####[facility] [address] [place], [address] CBC W/Diff, Automatedon 04-3 Absolute Lymph 1.35 X10 3/uL Normal 0.83-4.51 [facility] Comment on above: Performed By: #### L 100.0100, L500.2500, L300.3900, L300.4310 ####[facility] [address] [place], [address] Absolute Neut 5.0 X10 3/uL Normal 2.0-7.7 [facility] Comment on above: Performed By: #### L 100.0100, L500.2500, L300.3900, L300.4310 ####[facility] [address] [place], [address] Basophils/100 WBC (Bld) 0.3 % Normal 0-1 [facility] Comment on above: Performed By: #### L 100.0100, L500.2500, L300.3900, L300.4310 ####[facility] [address] [place], [address] Eosinophils/100 WBC (Bld) 3.1 % Normal 0-5 [facility] Comment on above: Performed By: #### L 100.0100, L500.2500, L300.3900, L300.4310 ####[facility] [address] [place], [address] Erythrocyte distribution width (RBC) [Ratio] 17.0 % High 11.6-14.6 [facility] Comment on above: Performed By: #### L 100.0100, L500.2500, L300.3900, L300.4310 ####[facility] [address] [place], [address] Hematocrit (Bld) [Volume fraction] 21.5 % Low 40-54 [facility] Comment on above: Performed By: #### L 100.0100, L500.2500, L300.3900, L300.4310 ####[facility] [address] [place], [address] Hemoglobin (Bld) [Mass/Vol] 6.7 g/dL Low 13.0-16.5 [facility] Comment on above: Performed By: #### L 100.0100, L500.2500, L300.3900, L300.4310 ####[facility] [address] [place], [address] IG% 0.300 Normal 0.0-0.9 [facility] Comment on above: Result Comment: IG% - Immature Granulocytes (promyelocytes, myelocytes andmetamyelocytes) > 1% indicates that a LEFT SHIFT is Present. Performed By: #### L 100.0100, L500.2500, L300.3900, L300.4310 ####[facility] [address] [place], [address] Lymphocytes/100 WBC (Bld) 18.8 % Low 19-41 [facility] Comment on above: Performed By: #### L 100.0100, L500.2500, L300.3900, L300.4310 ####[facility] [address] [place], [address] MCH (RBC) [Entitic mass] 25.2 pg Low 27.0-32.0 [facility] Comment on above: Performed By: #### L 100.0100, L500.2500, L300.3900, L300.4310 ####[facility] [address] [place], [address] MCHC (RBC) [Mass/Vol] 31.2 g/dL Low 32-36 [facility] Comment on above: Performed By: #### L 100.0100, L500.2500, L300.3900, L300.4310 ####[facility] [address] [place], [address] MCV (RBC) [Entitic vol] 80.8 fL Normal 80-94 [facility] Comment on above: Performed By: #### L 100.0100, L500.2500, L300.3900, L300.4310 ####[facility] [address] [place], [address] Monocytes/100 WBC (Bld) 7.5 % Normal 0-10 [facility] Comment on above: Performed By: #### L 100.0100, L500.2500, L300.3900, L300.4310 ####[facility] [address] [place], [address] Neutrophils/100 WBC (Bld) 70.0 % Normal 47-70 [facility] Comment on above: Performed By: #### L 100.0100, L500.2500, L300.3900, L300.4310 ####[facility] [address] [place], [address] Nucleated RBC (Bld) [#/Vol] 0 10*3/uL Normal 0-5 [facility] Comment on above: Performed By: #### L 100.0100, L500.2500, L300.3900, L300.4310 ####[facility] [address] [place], [address] Platelet mean volume (Bld) [Entitic vol] 9.7 fL Normal 6.2-12.0 [facility] Comment on above: Performed By: #### L 100.0100, L500.2500, L300.3900, L300.4310 ####[facility] [address] [place], [address] Platelets (Bld) [#/Vol] 335 10*3/uL Normal 150-450 [facility] Comment on above: Performed By: #### L 100.0100, L500.2500, L300.3900, L300.4310 ####[facility] [address] [place], [address] RBC (Bld) [#/Vol] 2.66 10*6/uL Low 4.6-6.2 [facility] Comment on above: Performed By: #### L 100.0100, L500.2500, L300.3900, L300.4310 ####[facility] [address] [place], [address] RDW SD 50.4 fl High 35.1-43.9 [facility] Comment on above: Performed By: #### L 100.0100, L500.2500, L300.3900, L300.4310 ####[facility] [address] [place], [address] WBC (Bld) [#/Vol] 7.2 10*3/uL Normal 4.4-11.0 [facility] Comment on above: Performed By: #### L 100.0100, L500.2500, L300.3900, L300.4310 ####[facility] [address] [place], [address] Emergency Department Summary on 06-10-2024 Emergency Department Summary Normal [facility] Ferritinon 06-10-2024 Ferritin [Mass/Vol] 10 ng/mL Low 37-417 [facility] Comment on above: Performed By: #### L 503.6550, L503.6030 ####[facility] [address] [place], [address] H AND P Exam - Hospitaliston 06-10-2024 H&P Exam - Hospitalist Normal [facility] HH, Hemoglobin AND Hematocri ton 06-10-2024 Hematocrit (Bld) [Volume fraction] 22.7 % Low 40-54 [facility] Comment on above: Performed By: #### L 100.0600 ####[facility] [address] [place], [address] Hemoglobin (Bld) [Mass/Vol] 7.0 g/dL Low 13.0-16.5 [facility] Comment on above: Performed By: #### L 100.0600 ####[facility] [address] [place], [address] HCT Normal 40-54 [facility] Comment on above: Result Comment: Cha gagnon via OM: MD Ordered Performed By: #### L 100.0600 ####[facility] [address] [place], [address] HGB Normal 13.0-16.5 [facility] Comment on above: Result Comment: Cha gagnon via OM: MD Ordered Performed By: #### L 100.0600 ####[facility] [address] [place], [address] Iron+Iron Binding Capacityon 06-10-2024 Iron [Mass/Vol] 12 ug/dL Low 65-175 [facility] Comment on above: Performed By: #### L 503.6550, L503.6030 ####[facility] [address] [place], [address] IRON SATURATION 3.0 Low 9-55 [facility] Comment on above: Performed By: #### L 503.6550, L503.6030 ####[facility] [address] [place], [address] TIBC 361 ug/dL Normal 250-450 [facility] Comment on above: Performed By: #### L 503.6550, L503.6030 ####[facility] [address] [place], [address] UIBC 349 ug/dL Normal 228-428 [facility] Comment on above: Performed By: #### L 503.6550, L503.6030 ####[facility] [address] [place], [address] Lower Ext Art Exam w/o Exerc nick 06-10-2024 Lower Ext Art Exam w/o Exercis Normal [facility] Partial Thromboplast Timeon 06-10-2024 aPTT Coag (Bld) [Time] 32.0 s Normal 24.1-36.2 [facility] Comment on above: Performed By: #### L 100.0100, L500.2500, L300.3900, L300.4310 ####[facility] [address] [place], [address] Prothrombin Time w/INRon INR Coag (PPP) [Relative time] 1.0 {INR} Normal [facility] Comment on above: Performed By: #### L 100.0100, L500.2500, L300.3900, L300.4310 ####[facility] [address] [place], [address] PT Coag (PPP) [Time] 13.1 s Normal 11.7-14.9 [facility] Comment on above: Performed By: #### L 100.0100, L500.2500, L300.3900, L300.4310 ####[facility] [address] [place], [address] Stool Occult Blood iFOBon STOB Normal [facility] Comment on above: Performed By: #### M 100.7900 ####[facility] [address] [place], [address] Type AND Screenon 06-10-2024 Ab SCREEN GEL Negative Normal [facility] Comment on above: Order Comment: A Performed By: #### B TS ####[facility] [address] [place], [address] MR/BMS.BVSon 06-02-2024 MR/BMS.BVS Normal [facility] 6 Minute Walk Teston 025 6 Minute Walk Test Normal [facility] CTA Abd w/Runoff W/WO Contra ston 05-18-2024 CTA Abd w/Runoff W/WO Contrast Normal [facility] HIP, UNI W/ Pelvis 2-3 Views on 03-27-2024 HIP, UNI W/ Pelvis 2-3 Views Normal [facility] Carotid Duplex Ultrasoundon 03-25-2024 Carotid Duplex Ultrasound Normal [facility] Lower Ext Art Exam w/ Exerci dhaval 03-25-2024 Lower Ext Art Exam w/ Exercise Normal [facility] MR/BMS.BVSon 03-25-2024 MR/BMS.BVS Normal [facility] MR/BMS.BVSon 02-28-2024 MR/BMS.BVS Normal [facility] CBC W/Diff, Automatedon 12-0 Absolute Lymph 1.39 X10 3/uL Normal 0.83-4.51 [facility] Comment on above: Performed By: #### L 503.6550, L500.4100, L500.4050, L501.9910, L506.1000, L100.0100, L503.6150 ####[facility] [address] [place], [address] Absolute Neut 4.9 X10 3/uL Normal 2.0-7.7 [facility] Comment on above: Performed By: #### L 503.6550, L500.4100, L500.4050, L501.9910, L506.1000, L100.0100, L503.6150 ####[facility] [address] [place], [address] Basophils/100 WBC (Bld) 0.6 % Normal 0-1 [facility] Comment on above: Performed By: #### L 503.6550, L500.4100, L500.4050, L501.9910, L506.1000, L100.0100, L503.6150 ####[facility] [address] [place], [address] Eosinophils/100 WBC (Bld) 3.3 % Normal 0-5 [facility] Comment on above: Performed By: #### L 503.6550, L500.4100, L500.4050, L501.9910, L506.1000, L100.0100, L503.6150 ####[facility] [address] [place], [address] Erythrocyte distribution width (RBC) [Ratio] 14.0 % Normal 11.6-14.6 [facility] Comment on above: Performed By: #### L 503.6550, L500.4100, L500.4050, L501.9910, L506.1000, L100.0100, L503.6150 ####[facility] [address] [place], [address] Hematocrit (Bld) [Volume fraction] 36.7 % Low 40-54 [facility] Comment on above: Performed By: #### L 503.6550, L500.4100, L500.4050, L501.9910, L506.1000, L100.0100, L503.6150 ####[facility] [address] [place], [address] Hemoglobin (Bld) [Mass/Vol] 11.8 g/dL Low 13.0-16.5 [facility] Comment on above: Performed By: #### L 503.6550, L500.4100, L500.4050, L501.9910, L506.1000, L100.0100, L503.6150 ####[facility] [address] [place], [address] IG% 0.400 Normal 0.0-0.9 [facility] Comment on above: Result Comment: IG% - Immature Granulocytes (promyelocytes, myelocytes andmetamyelocytes) > 1% indicates that a LEFT SHIFT is Present. Performed By: #### L 503.6550, L500.4100, L500.4050, L501.9910, L506.1000, L100.0100, L503.6150 ####[facility] [address] [place], [address] Lymphocytes/100 WBC (Bld) 20.1 % Normal 19-41 [facility] Comment on above: Performed By: #### L 503.6550, L500.4100, L500.4050, L501.9910, L506.1000, L100.0100, L503.6150 ####[facility] [address] [place], [address] MCH (RBC) [Entitic mass] 31.6 pg Normal 27.0-32.0 [facility] Comment on above: Performed By: #### L 503.6550, L500.4100, L500.4050, L501.9910, L506.1000, L100.0100, L503.6150 ####[facility] [address] [place], [address] MCHC (RBC) [Mass/Vol] 32.2 g/dL Normal 32-36 [facility] Comment on above: Performed By: #### L 503.6550, L500.4100, L500.4050, L501.9910, L506.1000, L100.0100, L503.6150 ####[facility] [address] [place], [address] MCV (RBC) [Entitic vol] 98.4 fL High 80-94 [facility] Comment on above: Performed By: #### L 503.6550, L500.4100, L500.4050, L501.9910, L506.1000, L100.0100, L503.6150 ####[facility] [address] [place], [address] Monocytes/100 WBC (Bld) 3.9 % Normal 0-10 [facility] Comment on above: Performed By: #### L 503.6550, L500.4100, L500.4050, L501.9910, L506.1000, L100.0100, L503.6150 ####[facility] [address] [place], [address] Neutrophils/100 WBC (Bld) 71.7 % High 47-70 [facility] Comment on above: Performed By: #### L 503.6550, L500.4100, L500.4050, L501.9910, L506.1000, L100.0100, L503.6150 ####[facility] [address] [place], [address] Nucleated RBC (Bld) [#/Vol] 0 10*3/uL Normal 0-5 [facility] Comment on above: Performed By: #### L 503.6550, L500.4100, L500.4050, L501.9910, L506.1000, L100.0100, L503.6150 ####[facility] [address] [place], [address] Platelet mean volume (Bld) [Entitic vol] 9.8 fL Normal 6.2-12.0 [facility] Comment on above: Performed By: #### L 503.6550, L500.4100, L500.4050, L501.9910, L506.1000, L100.0100, L503.6150 ####[facility] [address] [place], [address] Platelets (Bld) [#/Vol] 298 10*3/uL Normal 150-450 [facility] Comment on above: Performed By: #### L 503.6550, L500.4100, L500.4050, L501.9910, L506.1000, L100.0100, L503.6150 ####[facility] [address] [place], [address] RBC (Bld) [#/Vol] 3.73 10*6/uL Low 4.6-6.2 [facility] Comment on above: Performed By: #### L 503.6550, L500.4100, L500.4050, L501.9910, L506.1000, L100.0100, L503.6150 ####[facility] [address] [place], [address] RDW SD 50.9 fl High 35.1-43.9 [facility] Comment on above: Performed By: #### L 503.6550, L500.4100, L500.4050, L501.9910, L506.1000, L100.0100, L503.6150 ####[facility] [address] [place], [address] WBC (Bld) [#/Vol] 6.9 10*3/uL Normal 4.4-11.0 [facility] Comment on above: Performed By: #### L 503.6550, L500.4100, L500.4050, L501.9910, L506.1000, L100.0100, L503.6150 ####[facility] [address] [place], [address] Comprehensive Metabolic Prof ilon 01-14-2024 Albumin [Mass/Vol] 3.7 g/dL Normal 3.2-5.0 [facility] Comment on above: Performed By: #### L 503.6550, L500.4100, L500.4050, L501.9910, L506.1000, L100.0100, L503.6150 ####[facility] [address] [place], [address] Albumin/Globulin [Mass ratio] 1.1 {ratio} Normal 0.9-2.4 [facility] Comment on above: Performed By: #### L 503.6550, L500.4100, L500.4050, L501.9910, L506.1000, L100.0100, L503.6150 ####[facility] [address] [place], [address] ALK P 70 U/L Normal 45-117 [facility] Comment on above: Performed By: #### L 503.6550, L500.4100, L500.4050, L501.9910, L506.1000, L100.0100, L503.6150 ####[facility] [address] [place], [address] ALT [Catalytic activity/Vol] 22 U/L Normal 16-61 [facility] Comment on above: Performed By: #### L 503.6550, L500.4100, L500.4050, L501.9910, L506.1000, L100.0100, L503.6150 ####[facility] [address] [place], [address] AST [Catalytic activity/Vol] 23 U/L Normal 15-37 [facility] Comment on above: Performed By: #### L 503.6550, L500.4100, L500.4050, L501.9910, L506.1000, L100.0100, L503.6150 ####[facility] [address] [place], [address] Bilirubin [Mass/Vol] 0.30 mg/dL Normal 0.20-1.00 [facility] Comment on above: Result Comment: For patients on eltrombopag therapy, use of Dimension Douglas TBIL is not recommended. Performed By: #### L 503.6550, L500.4100, L500.4050, L501.9910, L506.1000, L100.0100, L503.6150 ####[facility] [address] [place], [address] BUN/CRE 14.7 RATIO Normal 10-20 [facility] Comment on above: Performed By: #### L 503.6550, L500.4100, L500.4050, L501.9910, L506.1000, L100.0100, L503.6150 ####[facility] [address] [place], [address] CA,Total 9.3 mg/dL Normal 8.5-10.1 [facility] Comment on above: Performed By: #### L 503.6550, L500.4100, L500.4050, L501.9910, L506.1000, L100.0100, L503.6150 ####[facility] [address] [place], [address] Chloride [Moles/Vol] 106 mmol/L Normal 98-107 [facility] Comment on above: Performed By: #### L 503.6550, L500.4100, L500.4050, L501.9910, L506.1000, L100.0100, L503.6150 ####[facility] [address] [place], [address] CO2 [Moles/Vol] 26.0 mmol/L Normal 21.0-32.0 [facility] Comment on above: Performed By: #### L 503.6550, L500.4100, L500.4050, L501.9910, L506.1000, L100.0100, L503.6150 ####[facility] [address] [place], [address] Creatinine [Mass/Vol] 1.02 mg/dL Normal 0.70-1.30 [facility] Comment on above: Result Comment: The validity of the calculated GFR GFRAA in patients over70 years has not been determined. Clinical correlation isessential. Performed By: #### L 503.6550, L500.4100, L500.4050, L501.9910, L506.1000, L100.0100, L503.6150 ####[facility] [address] [place], [address] EST GFR - AA 93 mL/min Normal >60 [facility] Comment on above: Result Comment: Afri can [place] GFR Calc Performed By: #### L 503.6550, L500.4100, L500.4050, L501.9910, L506.1000, L100.0100, L503.6150 ####[facility] [address] [place], [address] GAP 6 Normal 5-15 [facility] Comment on above: Performed By: #### L 503.6550, L500.4100, L500.4050, L501.9910, L506.1000, L100.0100, L503.6150 ####[facility] [address] [place], [address] GFR/1.73 sq M.predicted among non-blacks MDRD (S/P/Bld) [Vol rate/Area] 77 mL/min/{1.73_m2} Normal >60 [facility] Comment on above: Result Comment: Non- GFR Calc Performed By: #### L 503.6550, L500.4100, L500.4050, L501.9910, L506.1000, L100.0100, L503.6150 ####[facility] [address] [place], [address] Globulin (S) [Mass/Vol] 3.4 g/dL Normal 2.2-4.2 [facility] Comment on above: Performed By: #### L 503.6550, L500.4100, L500.4050, L501.9910, L506.1000, L100.0100, L503.6150 ####[facility] [address] [place], [address] Glucose [Mass/Vol] 94 mg/dL Normal 74-106 [facility] Comment on above: Performed By: #### L 503.6550, L500.4100, L500.4050, L501.9910, L506.1000, L100.0100, L503.6150 ####[facility] [address] [place], [address] Potassium [Moles/Vol] 4.3 mmol/L Normal 3.5-5.1 [facility] Comment on above: Performed By: #### L 503.6550, L500.4100, L500.4050, L501.9910, L506.1000, L100.0100, L503.6150 ####[facility] [address] [place], [address] Sodium [Moles/Vol] 139 mmol/L Normal 136-145 [facility] Comment on above: Performed By: #### L 503.6550, L500.4100, L500.4050, L501.9910, L506.1000, L100.0100, L503.6150 ####[facility] [address] [place], [address] T PROT 7.1 g/dL Normal 6.4-8.2 [facility] Comment on above: Performed By: #### L 503.6550, L500.4100, L500.4050, L501.9910, L506.1000, L100.0100, L503.6150 ####[facility] [address] [place], [place], [address] Urea nitrogen [Mass/Vol] 15 mg/dL Normal 7-18 [facility] Comment on above: Performed By: #### L 503.6550, L500.4100, L500.4050, L501.9910, L506.1000, L100.0100, L503.6150 ####[facility] [address] [place], [place], [address] Ferritinon 01-14-2024 Ferritin [Mass/Vol] 30 ng/mL Normal 26-388 [facility] Comment on above: Performed By: #### L 503.6550, L500.4100, L500.4050, L501.9910, L506.1000, L100.0100, L503.6150 ####[facility] [address] [place], [place], [address] Ironon 12-03-2024 Iron [Mass/Vol] 85 ug/dL Normal 65-175 [facility] Comment on above: Performed By: #### L 503.6550, L500.4100, L500.4050, L501.9910, L506.1000, L100.0100, L503.6150 ####[facility] [address] [place], [address] Lipid Profileon 01-14-2024 Cholesterol [Mass/Vol] 137 mg/dL Normal 200 [facility] Comment on above: Result Comment: <200 mg/dL Desirable 200-240 mg/dL Borderline >240 mg/dL High Risk Performed By: #### L 503.6550, L500.4100, L500.4050, L501.9910, L506.1000, L100.0100, L503.6150 ####[facility] [address] [place], [address] Cholesterol in HDL [Mass/Vol] 57 mg/dL Normal [facility] Comment on above: Result Comment: The drugs N-Acetylcysteine and Metamizole may falselydepress this assay. Reference Range HDL <40 mg/dL Low HDL Cholesterol HDL >or= 60 mg/dL High HDL Cholesterol Performed By: #### L 503.6550, L500.4100, L500.4050, L501.9910, L506.1000, L100.0100, L503.6150 ####[facility] [address] [place], [address] Cholesterol in LDL [Mass/Vol] 69 mg/dL Normal 0-130 [facility] Comment on above: Performed By: #### L 503.6550, L500.4100, L500.4050, L501.9910, L506.1000, L100.0100, L503.6150 ####[facility] [address] [place], [address] Cholesterol in VLDL [Mass/Vol] 11 mg/dL Normal 5-40 [facility] Comment on above: Performed By: #### L 503.6550, L500.4100, L500.4050, L501.9910, L506.1000, L100.0100, L503.6150 ####[facility] [address] [place], [place], [id number] Triglyceride [Mass/Vol] 55 mg/dL Normal W [facility] Comment on above: Result Comment: The drugs N-Acetylcysteine and Metamizole may falselydepress this assay.Serum Triglycerides Reference Interval Normal <150 mg/dL Borderline high 150 - 199 mg/dL High 200 - 499 mg/dL Very High > or = 500 mg/dL Performed By: #### L 503.6550, L500.4100, L500.4050, L501.9910, L506.1000, L100.0100, L503.6150 ####[facility] [address] [place], [address] PSA,Total - Annual Screenon 01-14-2024 PSA,TOT SCREEN 3.62 ng/mL Normal 0.00-4.00 [facility] Comment on above: Result Comment: This test was performed using the TPSA assay method for [employer] chemistry system. Values obtained with differentassay methods cannot be used interchangably.When changing PSA assays in the course of monitoring apatient, additional sequential testing should be carriedout to confirm baseline values. Performed By: #### L 503.6550, L500.4100, L500.4050, L501.9910, L506.1000, L100.0100, L503.6150 ####[facility] [address] [place], [place], [id number] Vitamin D,25 Hydroxyon 01-13 Vitamin D 25-OH 38.0 ng/mL Normal [facility] Comment on above: Result Comment: Kiah min D 25(OH) Status Range Deficiency <20 ng/mL (50nmol/L) Insufficiency 20 - 30 ng/mL (50 - 75 nmol/L) Sufficiency 30 - 100 ng/mL (75 - 250 nmol/L) Toxicity >100 ng/mL (>250 nmol/L) Performed By: #### L 503.6550, L500.4100, L500.4050, L501.9910, L506.1000, L100.0100, L503.6150 ####[facility] [address] [place], [address] Pulmonary Visit Reporton Pulmonary Visit Report Normal [facility] PT D/C Summary (1)on 024 PT D/C Summary (1) Normal [facility] Encounters Encounter Date Encounter Type Care Provider Facility Start: 07-21-2024 End: 07-21-2024 ambulatory Claribel Bernabe Facility:[facility] Start: 07-09-2024 End: 07-09-2024 ambulatory Claribel Bernabe Facility:[facility] Start: 07-07-2024 End: 07-09-2024 Evaluation and management of inpatient Claribel Bernabe Facility:[facility] Start: 07-07-2024 ambulatory Claribel Bernabe [facility] Start: 07-07-2024 ambulatory Claribel Bernabe [facility] Start: 07-07-2024 End: 07-07-2024 ambulatory Claribel Bernabe Facility:[facility] Start: 06-24-2024 ambulatory Aguilar Olseney [facility] Start: 06-24-2024 End: 06-25-2024 ambulatory Durham Bernabe Facility:[facility] Start: 06-19-2024 End: 06-19-2024 ambulatory Loretta Lu Facility:[facility] Start: 06-13-2024 ambulatory Sahil Tobin Facility :[facility] Start: 06-12-2024 ambulatory Claribel Bernabe [facility] Start: 06-12-2024 End: 06-12-2024 ambulatory Jonas Belal [facility] Start: 06-10-2024 ambulatory Aguilar Sylvester [facility] Start: 06-10-2024 End: 06-13-2024 Evaluation and management of inpatient Claribel Bernabe Facility:[facility] Start: 06-10-2024 ambulatory Claribel Bernabe [facility] Start: 06-02-2024 End: 06-02-2024 ambulatory Claribel Bernabe [facility] Start: 05-20-2024 ambulatory Claribel Bernabe [facility] Start: 05-19-2024 End: 05-19-2024 ambulatory Claribel Bernabe [facility] Start: 05-18-2024 ambulatory Claribel Bernabe Facility:[facility] Start: 05-18-2024 End: 05-18-2024 ambulatory Claribel Bernabe Facility:[facility] Start: 05-12-2024 End: 05-12-2024 ambulatory Claribel Bernabe Facility:[facility] Start: 03-27-2024 End: 03-27-2024 ambulatory Claribel Bernabe Facility:[facility] Start: 03-25-2024 End: 03-25-2024 ambulatory Claribel Bernabe [facility] Start: 03-25-2024 ambulatory Claribel Bernabe [facility] Start: 03-25-2024 End: 03-25-2024 ambulatory Claribel Bernabe Facility:[facility] Start: 02-28-2024 End: 02-28-2024 ambulatory Claribel Bernabe [facility] Start: 01-13-2024 End: 01-14-2024 ambulatory Claribel Bernabe Facility:[facility] Start: 08-20-2023 End: 08-20-2023 ambulatory Claribel Bernabe Facility:[facility] Plan of Treatment Date Care Activity Detail Author Start: 07-24-2024 ambulatory Facility:[facility] Payers Date Payer Category Payer Private Health Insurance [id number] 2024 Unknown [id number] 2023 Self-pay 2021 Private Health Insurance [id number] 2020 Unknown [id number] Unknown [id number] 2.16.8 40.1.601073.3.579.2.462 Unknown [id number] 2.16.8 40.1.990779.3.579.2.462 Unknown [id number] 2.16.8 40.1.281467.3.579.2.462 Unknown [id number] .16.8 40.1.188994.3.579.2.462 Unknown [id number] .16.8 40.1.457804.3.579.2.462 Unknown [id number] 2.16.8 40.1.710039.3.579.2.462 Unknown [id number] 2.16.8 40.1.444673.3.579.2.462 Unknown [id number] 2.16.8 40.1.255204.3.579.2.462 Unknown [id number] 2.16.8 40.1.900888.3.579.2.462 Unknown [id number] 2.16.8 40.1.158058.3.579.2.462 Unknown [id number] 2.16.8 40.1.493301.3.579.2.462 Unknown [id number] 2.16.8 40.1.741365.3.579.2.462 Unknown [id number] 2.16.8 40.1.399223.3.579.2.462 Unknown [id number] 2.16.8 40.1.405475.3.579.2.462 Unknown [id number] 2.16.8 40.1.153929.3.579.2.462 Unknown [id number] 2.16.8 40.1.790313.3.579.2.462 Unknown [id number] 2.16.8 40.1.134437.3.579.2.462 Unknown [id number] 2.16.8 40.1.672065.3.579.2.462 Unknown [id number] 2.16.8 40.1.587137.3.579.2.462 Unknown [id number] 2.16.8 40.1.012258.3.579.2.462 Unknown [id number] 2.16.8 40.1.596381.3.579.2.462 Unknown [id number] 2.16.8 40.1.427180.3.579.2.462 Unknown [id number] 2.16.8 40.1.165578.3.579.2.462 Unknown [id number] 2.16.8 40.1.912898.3.579.2.462 Unknown [id number] 2.16.8 40.1.626368.3.579.2.462 Unknown [id number] 2.16.8 40.1.033655.3.579.2.462 Unknown [id number] 2.16.8 40.1.809728.3.579.2.462 Unknown [id number] 2.16.8 40.1.118389.3.579.2.462 Unknown [id number] 2.16.8 40.1.108884.3.579.2.462 Unknown [id number] 2.16.8 40.1.029514.3.579.2.462 Unknown [id number] 2.16.8 40.1.930281.3.579.2.462 Unknown [id number] 2.16.8 40.1.675720.3.579.2.462 Unknown [id number] 2.16.8 40.1.405428.3.579.2.462 Unknown [id number] 2.16.8 40.1.870192.3.579.2.462 Unknown [id number] 2.16.8 40.1.381159.3.579.2.462 Unknown [id number] 2.16.8 40.1.208313.3.579.2.462 Unknown [id number] 2.16.8 40.1.427281.3.579.2.462 Unknown [id number] 2.16.8 40.1.642243.3.579.2.462 Unknown [id number] 2.16.8 40.1.809964.3.579.2.462 Unknown [id number] 2.16.8 40.1.409916.3.579.2.462 Unknown [id number] 2.16.8 40.1.454905.3.579.2.462 Unknown [id number] 2.16.8 40.1.974343.3.579.2.462 Unknown [id number] 2.16.8 40.1.013626.3.579.2.462 Discharge summary note 07-09-2024 Note Date & Type Note Facility 07-09-2024 Note [facility] Discharge summary note 06-25-2024 Note Date & Type Note Facility 06-25-2024 Note [facility] Discharge summary note 06-13-2024 Note Date & Type Note Facility 06-13-2024 Note [facility] Summary Purpose Family History No Family History Records Found Advance Directives No Advanced Directives Records Found Additional Source Comments (unrecognized sect ion and content) No Status Records Found INFORMATION SOURCE (unrecogn ized section and content) DATE CREATED AUTHOR 07/22/2024 [facility] FOR RECORDS PERTAINING TO PATIENTS WHO ARE OR HAVE BEEN ENROLLED IN A CHEMICAL DEPENDENCY/SUBSTANCEABUSE PROGRAM, SOME INFORMATION MAY BE OMITTED. This clinical summary was aggregated from multiple sources. Caution should be exercised in using it in the provision of clinical care. This summary normalizes information from multiple sources, and as a consequence, information in this document may materially change the coding, format and clinical context of patient data. In addition, data may be omitted in some cases. CLINICAL DECISIONS SHOULD BE BASED ON THE PRIMARY CLINICAL RECORDS. [employer] provides no warranty or guarantee of the accuracy or completeness of information in this document.
== END | disposition home or self-care (01) ==
LOC: LAB 14:14
PROVIDERS: PCP Nurse Practitioner Family
DX: D50.0 Iron deficiency anemia secondary to blood loss (chronic) (principal)
CPT/HCPCS: 36415; 85014; 85018

== ENCOUNTER → 2024-07-24 | Outpatient (CLI) | payer MEDICARE, MEDICAID, SELFPAY ==
--- NOTE | 2024-07-24 18:38 | CT_ITS ---
PROCEDURE: LOW DOSE CT LUNG SCREENING 07/24/2024 REASON FOR EXAM: SMOKER TECHNIQUE: LOW DOSE CT LUNG SCREENING Coronal and Sagittal reconstruction series were provided. One or more dose reduction techniques were used (e.g., Automated exposure control, adjustment of the mA and/or kV according to patient size, use of iterative reconstruction technique). REFERENCE LINK: Eligible Lung-RADS RADIATION DOSE SUMMARY: CTDlvol: 2.01 mGy DLP: 76.25 mGycm COMPARISON: 06/05/2023. FINDINGS: PULMONARY NODULES: (Only nodules >3mm are reported) Nodules described below are on series 2 unless otherwise specified. Unchanged emphysema. Interval appearance of ground-glass densities in the right middle lobe suggestive of pneumonia. Moderate coronary artery calcifications. Mild osteopenia. Diffuse spondylosis. Normal unenhanced main pulmonary artery and right and left pulmonary arteries. Normal bilateral peripheral pulmonary arteries. Normal thoracic aorta and visualized great vessels. There is no demonstrated aortic aneurysm. Normal heart and pericardium. Normal mediastinum. Normal hilar regions. Normal visualized trachea and bronchi. Normal pleura. Normal visualized upper abdomen. CT/Low Dose CT Lung Screening IMPRESSION: Unchanged emphysema. Interval appearance of ground-glass densities in the right middle lobe suggesti ve of pneumonia. Moderate coronary artery calcifications. Mild osteopenia. Diffuse spondylosis. Coronary artery calcification (CAC) is is present Lung-RADS Category: 2 BENIGN (BASED ON IMAGING FEATURES OR INDOLENT BEHAVIOR). RECOMMEND 12-MONTH SCREENING LDCT. Reading [facility] [address]
--- OUTSIDE RECORDS SUMMARY | 2024-07-24 19:47 | XMS RPT_ITS | CCD ---
Author Organization [facility] Care Team Providers Care Jewel Blocker And Sawyer Name Role Phone Bernabe, Claribel Primary Care Unavailable Christina SEAL DELIVERY VEHICLE OFFICER, Lina Referring Unavailable Christina SEAL DELIVERY VEHICLE OFFICER, Lina Attending Unavailable Bernabe, Claribel Primary Care Unavailable Javon Ybarra Referring Unavailable Javon Ybarra Attending Unavailable Bernabe, Claribel Attending Unavailable Bernabe, Claribel Primary Care Unavailable Bernabe, Claribel Referring Unavailable Winburne, Aguilar Attending Unavailable Sylvesetr, Aguilar Referring Unavailable Winburne, Aguilar Consulting Unavailable Bernabe, Claribel Primary Care Unavailable Bernabe, Claribel Primary Care Unavailable Winburne, Aguilar Attending Unavailable Sylvester, Aguilar Referring Unavailable Winburne, Aguilar Admitting Unavailable Bernabe, Claribel Attending Unavailable Bernabe, Claribel Primary Care Unavailable Arturo, Loretta Consulting Unavailable Mckenzie, Geeta Referring Unavailable Bernabe, Claribel Primary Care Unavailable Lu, Loretta Referring Unavailable Lu, Loretta Attending Unavailable Bernabe, Claribel Primary Care Unavailable Sylvester, Aguilar Consulting Unavailable Rocco Cruz Attending Unavailable Bryantsonis, Abram F Admitting Unavailable Kotsonis, Abram F Consulting Unavailable Bernabe, Claribel Primary Care Unavailable Kotsonis, Abram F Admitting Unavailable Kotsonis, Abram F Consulting Unavailable Bryantsonis, Abram F Attending Unavailable Bernabe, Claribel Primary Care Unavailable Rocco Cruz Attending Unavailable Kotsonis, Abram F Admitting Unavailable Kotsonis, Abram F Consulting Unavailable Rocco Cruz Consulting Unavailable Bernabe, Claribel Primary Care Unavailable Jonas Cobb Attending Unavailable Kotsonis, Abram F Referring Unavailable Bernabe, Claribel Primary Care Unavailable Sylvester, Aguilar Attending Unavailable Mckenzie, Geeta Referring Unavailable Bernabe, Claribel Primary Care Unavailable Anthony, Rocco Attending Unavailable Kotsonis, Abram F Admitting Unavailable Kotsonis, Abram F Consulting Unavailable Rocco Blank Consulting Unavailable Eliel Osborn Consulting Unavailable Marcelo Howard Consulting Unavailable Herbert Hendrickson Consulting Unavailable Kevin Moses Consulting Unavailable Zeeshan Arroyo Consulting Unavailable Gerardo Hernández Consulting Unavailable Bunny Trejo Consulting Unavailable Esperanza, Ami Consulting Unavailable Aguilar Phan Consulting Unavailable Rocco Cruz Consulting Unavailable Bernabe, Claribel Primary Care Unavailable Sahil Tobin Attending Unavailable Rocco Cruz Referring Unavailable Kotsonis, Abram F Admitting Unavailable Kotsonis, Abram F Consulting Unavailable Rocco Blank Consulting Unavailable Eliel Osborn Consulting Unavailable Marcelo Howard Consulting Unavailable Herbert Hendrickson Consulting Unavailable Kevin Moses Consulting Unavailable Zeeshan Arroyo Consulting Unavailable Gerardo Hernández Consulting Unavailable Bunny Trejo Consulting Unavailable Esperanza, Ami Consulting Unavailable Aguilar Phan Consulting Unavailable Rocco Cruz Consulting Unavailable Bernabe, [place] Primary Care Unavailable Mckenzie, Geeta Attending Unavailable Rocco Cruz Referring Unavailable Kotsonis, Abram F Admitting Unavailable Kotsonis, Abram F Consulting Unavailable Rocco Blank Consulting Unavailable Eliel Osborn Consulting Unavailable Marcelo Howard Consulting Unavailable Herbert Hendrickson Consulting Unavailable Kevin Moses Consulting Unavailable Zeeshan Arroyo Consulting Unavailable Gerardo Hernández Consulting Unavailable Bunny Trejo Consulting Unavailable Esperanza, Ami Consulting Unavailable Aguilar Phan Consulting Unavailable Rocco Cruz Consulting Unavailable Bernabe, Claribel Attending Unavailable Bernabe, Claribel Referring Unavailable Bernabe, [place] Primary Care Unavailable Bernabe, [place] Primary Care Unavailable Mckenzie, Geeta Referring Unavailable Mckenzie, Geeta Attending Unavailable Bernabe, [place] Primary Care Unavailable Christina SEAL DELIVERY VEHICLE OFFICER, Lina Referring Unavailable Christina SEAL DELIVERY VEHICLE OFFICER, Lina Attending Unavailable Bernabe, [place] Primary Care Unavailable Esperanza, Ami Attending Unavailable Kotsonis, Abram F Admitting Unavailable Kotsonis, Abram F Consulting Unavailable Rocco Blank Consulting Unavailable Pradm, Eliel Consulting Unavailable Marcelo Howard Consulting Unavailable Madhavi, Almaour Consulting Unavailable Kevin Moses Consulting Unavailable Cruz, Zeeshan Consulting Unavailable Reno Hernándezer Consulting Unavailable Bunny Trejo Consulting Unavailable Esperanza, Ami Consulting Unavailable Sylvester, Aguilar Consulting Unavailable Rocco Cruz Consulting [facility]available Sahil Tobin Attending Unavailable Rocco Cruz Referring Unavailable Bryantsonis, Abram F Admitting Unavailable Kotsonis, Abram F Consulting Unavailable Rocco Blank Consulting Unavailable Eliel Osborn Consulting Unavailable Marcelo Howard Consulting Unavailable Palmirakarus, Almaour Consulting Unavailable Kevin Moses Consulting Unavailable Cruz, Zeeshan Consulting Unavailable Betty, Gerardo Consulting Unavailable Maya, Bunny Consulting Unavailable Esperanza, Ami Consulting Unavailable Winburne, Aguilar Consulting Unavailable Rocco Cruz Consulting Unavailable [facility] Unavailable Mckenzie, Geeta Referring Unavailable Mckenzie, Geeta Consulting Unavailable Jorge Hare Attending Unavailable [facility] Care Unavailable Felipe, Abram F Admitting Unavailable Rocco Cruz Attending Unavailable Abram Wang F Consulting Unavailable Rocco Blank Consulting Unavailable Eliel Osborn Consulting Unavailable Marcelo Howard Consulting Unavailable Isckarus, Mansour Consulting Unavailable Kevin Moses Consulting Unavailable Cruz, Zeeshan Consulting Unavailable Betty, Gerardo Consulting Unavailable Bunny Trejo Consulting Unavailable Esperanza, Ami Consulting Unavailable Sylvester, Aguilar Consulting Unavailable [facility] Unavailable Winburne, Aguilar Consulting Unavailable Rocco Cruz Attending Unavailable Felipe, Abram F Admitting Unavailable Felipe, Abram F Consulting Unavailable Rocco Cruz Consulting Unavailable [facility] Unavailable Mckenzie, Geeta Referring Unavailable MckenzieCullenGeeta Attending Unavailable [facility] Unavailable Sylvester, Aguilar Consulting Unavailable Kotsonis, Abram F Admitting Unavailable Kotsonis, Abram F Attending Unavailable Bryantsonis, Abram F Consulting Unavailable Winburne, Aguilar Consulting Unavailable [facility] Unavailable Rocco Cruz Attending Unavailable Kociarraonis, Abram F Admitting Unavailable Mabelonis, Abram F Consulting Unavailable Rocco Cruz Consulting Unavailable Winburne, Aguilar Referring Unavailable Sylvester, Aguilar Admitting Unavailable Sylvester, Aguilar Consulting Unavailable Mckenzie, Geeta Attending Unavailable [facility] Unavailable Reza Lemuellul Attending Unavailable Belal, Lemuelouk Referring Unavailable Bernabe, Claribel Primary Care Unavailable Bernabe, Claribel Primary Care Unavailable Jorge Hare Attending Unavailable Christina SEAL DELIVERY VEHICLE OFFICER, Lina Referring Unavailable Sahil Tobin Attending Unavailable Bernabe, Claribel Primary Care Unavailable KittoeRocco Referring Unavailable Friend, Sahil Attending Unavailable Bernabe, Claribel Primary Care Unavailable KittoeRocco Referring Unavailable Bernabe, Claribel Primary Care Unavailable Winburne, Aguilar Attending Unavailable Angelo Zambrano Referring Unavailable Bernabe, Claribel Primary Care Unavailable Mckenzie, Geeta Attending Unavailable Beranbe, Claribel Referring Unavailable Bernabe, Claribel Primary Care Unavailable Winburne, Aguilar Consulting Unavailable Mckenzie, Geeta Attending Unavailable Mukultoe, Rocco Referring Unavailable BryantsonisJaylins F Admitting Unavailable MabeloniGelacio collierAbram F Consulting Unavailable Rocco Cruz Consulting Unavailable Loretta Lu Attending Unavailable Bernabe, Claribel Primary Care Unavailable Bernabe, Claribel Referring Unavailable Bernabe, Claribel Primary Care Unavailable Christina SEAL DELIVERY VEHICLE OFFICER, Lina Attending Unavailable Bernabe, Claribel Referring Unavailable Bernabe, Claribel Primary Care Unavailable Mckenzie, Geeta Attending Unavailable Bernabe, Claribel Referring Unavailable Bernabe, Claribel Primary Care Unavailable Rocco Cruz Referring Unavailable Herbert Hendrickson Attending Unavailable Bernabe, Claribel Primary Care Unavailable Loretta Lu Attending Unavailable Bernabe, Claribel Referring Unavailable Bernabe, Claribel Primary Care Unavailable Mckenzie, Geeta Attending Unavailable Bernabe, Claribel Referring Unavailable Bernabe, Claribel Referring Unavailable Bernabe, Claribel Primary Care Unavailable Esperanza, Ami Attending Unavailable Bernabe, Claribel Referring Unavailable Bernabe, Claribel Primary Care Unavailable Mckenzie, Geeta Attending Unavailable Sylvester, Aguilar Consulting Unavailable Bernabe, Claribel Primary Care Unavailable Rocco Cruz Attending Unavailable Gelacio Wangolas F Admitting Unavailable Jaylin Wangs F Consulting Unavailable Rocco Cruz Consulting Unavailable Crista, Sahil Attending Unavailable Sylvester, Aguilar Consulting Unavailable Bernabe, Claribel Primary Care Unavailable Kittoe, Rocco Referring Unavailable Kotsonis, Abram F Admitting Unavailable Kotsonis, Abram F Consulting Unavailable Mukultoe, Rocco Consulting Unavailable Bernabe, Claribel Primary Care Unavailable Esperanza, Ami Attending Unavailable Ami Mata Referring Unavailable Allergies Allergy Classification Reported Allergen(s) Allergy Type Date of Onset Reaction(s) Facility (1 source) busPIRone Drug Allergy 07-23-2024 [facility] (1 source) Sucralfate Drug Allergy 07-23-2024 [facility] (1 source) traZODone Drug Allergy 07-23-2024 [facility] (1 source) venom-honey bee Drug allergy (disorder) 07-23-2024 [facility] Problems Active Problems Problem Classification Problem Date Documented Da te Episodic/Chronic Chronic obstructive pulmonary disease and bronchiectasis (2 sources) Centrilobular emphysema; Translations: [Centrilobular emphysema] Onset: 5 Chronic Deficiency and other anemia (1 source) Iron deficiency anemia secondary to blood loss (chronic); Translations: [Iron deficiency anemia secondary to blood loss (chronic)] Onset: 5 Chronic Deficiency and other anemia (2 sources) Anemia, unspecified; Translations: [Anemia, unspecified] Onset: 5 Episodic Deficiency and other anemia (1 source) Iron deficiency anemia, unspecified; Translations: [Iron deficiency anemia, unspecified] Onset: 5 Episodic Gastrointestinal hemorrhage (2 sources) Gastrointestinal hemorrhage, unspecified; Translations: [Gastrointestinal hemorrhage, unspecified] Onset: 5 Episodic Malaise and fatigue (1 source) Weakness; Translations: [Weakness] Onset: 5 Episodic Occlusion or stenosis of precerebral arteries (1 source) Occlusion and stenosis of bilateral carotid arteries; Translations: [Occlusion and stenosis of bilateral carotid arteries] Onset: 5 Chronic Other circulatory disease (1 source) Peripheral vascular angioplasty status; Translations: [Peripheral vascular angioplasty status] Onset: 5 Episodic Other screening for suspected conditions (not mental disorders or infectious disease) (3 sources) Other specified abnormal findings of blood chemistry; Translations: [Encounter for screening for malignant neoplasm of prostate] Onset: 5 Episodic Peripheral and visceral atherosclerosis (3 sources) Peripheral vascular disease, unspecified; Translations: [Atherosclerosis of [place] arteries of extremities with intermittent claudication, left leg] Onset: 5 Chronic Substance-related disorders (1 source) Nicotine dependence, [...] Test Name Value Interpretation Reference Range Facility Gastroenterology Visit Repor ton 07-23-2024 Gastroenterology Visit Report Normal [facility], Hemoglobin AND Hematocri ton 07-23-2024 Hematocrit (Bld) [Volume fraction] 31.9 % Low 40-54 [facility] Comment on above: Performed By: #### L 100.0600 ####[facility] [address] [place], [address] Hemoglobin (Bld) [Mass/Vol] 10.4 g/dL Low 13.0-16.5 [facility] Comment on above: Performed By: #### L 100.0600 ####[facility] [address] [place], [address] Oncology Visit Reporton 07-12 Oncology Visit Report Normal [facility] Basic Metabolic Profile (BMP )on 07-11-2024 BUN Normal 4-19 [facility] Comment on above: Result Comment: Canc elled via OM: Order cancelled - Patient discharged Performed By: #### L 100.0100, L500.2500 ####[facility] [address] [place], [address] BUN/CRE Normal 10-20 [facility] Comment on above: Result Comment: Canc elled via OM: Order cancelled - Patient discharged Performed By: #### L 100.0100, L500.2500 ####[facility] [address] [place], [address] Calcium Normal 7.6-11.0 [facility] Comment on above: Result Comment: Canc elled via OM: Order cancelled - Patient discharged Performed By: #### L 100.0100, L500.2500 ####[facility] [address] [place], [address] CL Normal 98-108 [facility] Comment on above: Result Comment: Canc elled via OM: Order cancelled - Patient discharged Performed By: #### L 100.0100, L500.2500 ####[facility] [address] [place], [address] CO2 Normal 21.0-32.0 [facility] Comment on above: Result Comment: Canc elled via OM: Order cancelled - Patient discharged Performed By: #### L 100.0100, L500.2500 ####[facility] [address] [place], [address] CREAT,SERUM Normal 0.70-1.20 [facility] Comment on above: Result Comment: Canc elled via OM: Order cancelled - Patient discharged Performed By: #### L 100.0100, L500.2500 ####[facility] [address] [place], [address] eGFR Normal >60 [facility] Comment on above: Result Comment: Canc elled via OM: Order cancelled - Patient discharged Performed By: #### L 100.0100, L500.2500 ####[facility] [address] [place], [address] GAP Normal 5-15 [facility] Comment on above: Result Comment: Canc elled via OM: Order cancelled - Patient discharged Performed By: #### L 100.0100, L500.2500 ####[facility] [address] [place], [address] GLU Normal 70-99 [facility] Comment on above: Result Comment: Canc elled via OM: Order cancelled - Patient discharged Performed By: #### L 100.0100, L500.2500 ####[facility] [address] [place], [address] Potassium Normal 3.3-5.1 [facility] Comment on above: Result Comment: Canc elled via OM: Order cancelled - Patient discharged Performed By: #### L 100.0100, L500.2500 ####[facility] [address] [place], [address] Basic Metabolic Profile (BMP) Normal 133-145 [facility] Comment on above: Result Comment: Canc elled via OM: Order cancelled - Patient discharged Performed By: #### L 100.0100, L500.2500 ####[facility] [address] [place], [address] CBC W/Diff, Automatedon 05-3 Absolute Neut Normal 2.0-7.7 [facility] Comment on above: Result Comment: Canc elled via OM: Order cancelled - Patient discharged Performed By: #### L 100.0100, L500.2500 ####[facility] [address] [place], [address] HCT Normal 40-54 [facility] Comment on above: Result Comment: Canc elled via OM: Order cancelled - Patient discharged Performed By: #### L 100.0100, L500.2500 ####[facility] [address] [place], [address] HGB Normal 13.0-16.5 [facility] Comment on above: Result Comment: Canc elled via OM: Order cancelled - Patient discharged Performed By: #### L 100.0100, L500.2500 ####[facility] [address] [place], [address] MCH Normal 27.0-32.0 [facility] Comment on above: Result Comment: Canc elled via OM: Order cancelled - Patient discharged Performed By: #### L 100.0100, L500.2500 ####[facility] [address] [place], [address] MCHC Normal 32-36 [facility] Comment on above: Result Comment: Canc elled via OM: Order cancelled - Patient discharged Performed By: #### L 100.0100, L500.2500 ####[facility] [address] [place], [address] MCV Normal 80-94 [facility] Comment on above: Result Comment: Canc elled via OM: Order cancelled - Patient discharged Performed By: #### L 100.0100, L500.2500 ####[facility] [address] [place], [address] NEUT% Normal 47-70 [facility] Comment on above: Result Comment: Canc elled via OM: Order cancelled - Patient discharged Performed By: #### L 100.0100, L500.2500 ####[facility] [address] [place], [address] PLT Normal 150-450 [facility] Comment on above: Result Comment: Canc elled via OM: Order cancelled - Patient discharged Performed By: #### L 100.0100, L500.2500 ####[facility] [address] [place], [address] RBC Normal 4.6-6.2 [facility] Comment on above: Result Comment: Canc elled via OM: Order cancelled - Patient discharged Performed By: #### L 100.0100, L500.2500 ####[facility] [address] [place], [address] RDW CV Normal 11.6-14.6 [facility] Comment on above: Result Comment: Canc elled via OM: Order cancelled - Patient discharged Performed By: #### L 100.0100, L500.2500 ####[facility] [address] [place], [address] RDW SD Normal 35.1-43.9 [facility] Comment on above: Result Comment: Canc elled via OM: Order cancelled - Patient discharged Performed By: #### L 100.0100, L500.2500 ####[facility] [address] [place], [address] WBC Normal 4.4-11.0 [facility] Comment on above: Result Comment: Canc elled via OM: Order cancelled - Patient discharged Performed By: #### L 100.0100, L500.2500 ####[facility] [address] [place], [address] Basic Metabolic Profile (BMP )on 07-10-2024 BUN Normal 4-19 [facility] Comment on above: Result Comment: Canc elled via OM: Order cancelled - Patient discharged Performed By: #### L 500.2500, L100.0100 ####[facility] [address] [place], [address] BUN/CRE Normal 10-20 [facility] Comment on above: Result Comment: Canc elled via OM: Order cancelled - Patient discharged Performed By: #### L 500.2500, L100.0100 ####[facility] [address] [place], [address] Calcium Normal 7.6-11.0 [facility] Comment on above: Result Comment: Canc elled via OM: Order cancelled - Patient discharged Performed By: #### L 500.2500, L100.0100 ####[facility] [address] [place], [address] CL Normal 98-108 [facility] Comment on above: Result Comment: Canc elled via OM: Order cancelled - Patient discharged Performed By: #### L 500.2500, L100.0100 ####[facility] [address] [place], [address] CO2 Normal 21.0-32.0 [facility] Comment on above: Result Comment: Canc elled via OM: Order cancelled - Patient discharged Performed By: #### L 500.2500, L100.0100 ####[facility] [address] [place], [address] CREAT,SERUM Normal 0.70-1.20 [facility] Comment on above: Result Comment: Canc elled via OM: Order cancelled - Patient discharged Performed By: #### L 500.2500, L100.0100 ####[facility] [address] [place], [address] eGFR Normal >60 [facility] Comment on above: Result Comment: Canc elled via OM: Order cancelled - Patient discharged Performed By: #### L 500.2500, L100.0100 ####[facility] [address] [place], [address] GAP Normal 5-15 [facility] Comment on above: Result Comment: Canc elled via OM: Order cancelled - Patient discharged Performed By: #### L 500.2500, L100.0100 ####[facility] [address] [place], [address] GLU Normal 70-99 [facility] Comment on above: Result Comment: Canc elled via OM: Order cancelled - Patient discharged Performed By: #### L 500.2500, L100.0100 ####[facility] [address] [place], [address] Potassium Normal 3.3-5.1 [facility] Comment on above: Result Comment: Canc elled via OM: Order cancelled - Patient discharged Performed By: #### L 500.2500, L100.0100 ####[facility] [address] [place], [address] Basic Metabolic Profile (BMP) Normal 133-145 [facility] Comment on above: Result Comment: Canc elled via OM: Order cancelled - Patient discharged Performed By: #### L 500.2500, L100.0100 ####[facility] [address] [place], [address] CBC W/Diff, Automatedon 05-3 0-2024 Absolute Neut Normal 2.0-7.7 [facility] Comment on above: Result Comment: Canc elled via OM: Order cancelled - Patient discharged Performed By: #### L 500.2500, L100.0100 ####[facility] [address] [place], [address] HCT Normal 40-54 [facility] Comment on above: Result Comment: Canc elled via OM: Order cancelled - Patient discharged Performed By: #### L 500.2500, L100.0100 ####[facility] [address] [place], [address] HGB Normal 13.0-16.5 [facility] Comment on above: Result Comment: Canc elled via OM: Order cancelled - Patient discharged Performed By: #### L 500.2500, L100.0100 ####[facility] [address] [place], [address] MCH Normal 27.0-32.0 [facility] Comment on above: Result Comment: Canc elled via OM: Order cancelled - Patient discharged Performed By: #### L 500.2500, L100.0100 ####[facility] [address] [place], [address] MCHC Normal 32-36 [facility] Comment on above: Result Comment: Canc elled via OM: Order cancelled - Patient discharged Performed By: #### L 500.2500, L100.0100 ####[facility] [address] [place], [address] MCV Normal 80-94 [facility] Comment on above: Result Comment: Canc elled via OM: Order cancelled - Patient discharged Performed By: #### L 500.2500, L100.0100 ####[facility] [address] [place], [address] NEUT% Normal 47-70 [facility] Comment on above: Result Comment: Canc elled via OM: Order cancelled - Patient discharged Performed By: #### L 500.2500, L100.0100 ####[facility] [address] [place], [address] PLT Normal 150-450 [facility] Comment on above: Result Comment: Canc elled via OM: Order cancelled - Patient discharged Performed By: #### L 500.2500, L100.0100 ####[facility] [address] [place], [address] RBC Normal 4.6-6.2 [facility] Comment on above: Result Comment: Canc elled via OM: Order cancelled - Patient discharged Performed By: #### L 500.2500, L100.0100 ####[facility] [address] [place], [address] RDW CV Normal 11.6-14.6 [facility] Comment on above: Result Comment: Canc elled via OM: Order cancelled - Patient discharged Performed By: #### L 500.2500, L100.0100 ####[facility] [address] [place], [address] RDW SD Normal 35.1-43.9 [facility] Comment on above: Result Comment: Canc elled via OM: Order cancelled - Patient discharged Performed By: #### L 500.2500, L100.0100 ####[facility] [address] [place], [address] WBC Normal 4.4-11.0 [facility] Comment on above: Result Comment: Canc elled via OM: Order cancelled - Patient discharged Performed By: #### L 500.2500, L100.0100 ####[facility] [address] [place], [address] 12 Lead EKGon 07-09-2024 12 Lead EKG Normal [facility] Basic Metabolic Profile (BMP )on 07-09-2024 BUN/CRE 16.7 RATIO Normal 10-20 [facility] Comment on above: Performed By: #### L 100.0100, L500.2500, L501.2300, L501.5200 ####[facility] [address] [place], [address] Calcium [Mass/Vol] 9.2 mg/dL Normal 7.6-11.0 [facility] Comment on above: Performed By: #### L 100.0100, L500.2500, L501.2300, L501.5200 ####[facility] [address] [place], [address] Chloride [Moles/Vol] 108 mmol/L Normal 98-108 [facility] Comment on above: Performed By: #### L 100.0100, L500.2500, L501.2300, L501.5200 ####[facility] [address] [place], [address] CO2 [Moles/Vol] 21.5 mmol/L Normal 21.0-32.0 [facility] Comment on above: Performed By: #### L 100.0100, L500.2500, L501.2300, L501.5200 ####[facility] [address] [place], [address] Creatinine [Mass/Vol] 0.98 mg/dL Normal 0.70-1.20 [facility] Comment on above: Performed By: #### L 100.0100, L500.2500, L501.2300, L501.5200 ####[facility] [address] [place], [address] ECRCL 53.27 ml/min Normal 50-250 [facility] Comment on above: Performed By: #### L 100.0100, L500.2500, L501.2300, L501.5200 ####[facility] [address] [place], [address] GAP 12 Normal 5-15 [facility] Comment on above: Performed By: #### L 100.0100, L500.2500, L501.2300, L501.5200 ####[facility] [address] [place], [address] GFR/1.73 sq M.predicted among non-blacks MDRD (S/P/Bld) [Vol rate/Area] 83 mL/min/{1.73_m2} Normal >60 [facility] Comment on above: Result Comment: mL/m in/1.73m2 CKD-EPI Creatinine Equation (2020) Performed By: #### L 100.0100, L500.2500, L501.2300, L501.5200 ####[facility] [address] [place], [address] Glucose [Mass/Vol] 70 mg/dL Normal 70-99 [facility] Comment on above: Performed By: #### L 100.0100, L500.2500, L501.2300, L501.5200 ####[facility] [address] [place], [address] Potassium [Moles/Vol] 3.8 mmol/L Normal 3.3-5.1 [facility] Comment on above: Performed By: #### L 100.0100, L500.2500, L501.2300, L501.5200 ####[facility] [address] [place], [address] Sodium [Moles/Vol] 142 mmol/L Normal 133-145 [facility] Comment on above: Performed By: #### L 100.0100, L500.2500, L501.2300, L501.5200 ####[facility] [address] [place], [address] Urea nitrogen [Mass/Vol] 16 mg/dL Normal 4-19 [facility] Comment on above: Performed By: #### L 100.0100, L500.2500, L501.2300, L501.5200 ####[facility] [address] [place], [address] CBC W/Diff, Automatedon 05-2 OVALOCYTE RARE Normal [facility] Comment on above: Performed By: #### L 100.0100, L500.2500, L501.2300, L501.5200 ####[facility] [address] [place], [address] POLYCHROMASIA 1+ Normal [facility] Comment on above: Performed By: #### L 100.0100, L500.2500, L501.2300, L501.5200 ####[facility] [address] [place], [address] Anisocytosis Ql (Bld) 3+ Normal [facility] Comment on above: Performed By: #### L 100.0100, L500.2500, L501.2300, L501.5200 ####[facility] [address] [place], [address] MACROCYTOSIS 1+ Normal [facility] Comment on above: Performed By: #### L 100.0100, L500.2500, L501.2300, L501.5200 ####[facility] [address] [place], [address] MICROCYTIC 2+ Normal [facility] Comment on above: Performed By: #### L 100.0100, L500.2500, L501.2300, L501.5200 ####[facility] [address] [place], [address] SMEAR COMMENT SCANNED Normal [facility] Comment on above: Performed By: #### L 100.0100, L500.2500, L501.2300, L501.5200 ####[facility] [address] [place], [address] Consultation - Surgicalon Consultation - Surgical Normal W [facility] EGD Reporton 07-09-2024 EGD Report Normal [facility] Immunohistochemical Stainson 07-09-2024 Immunohistochemical Stains Normal [facility] Comment on above: Performed By: #### P IMHI ####[facility] [address] [place], [address] MR/POSTOP.ANEon 07-09-2024 MR/POSTOP.ANE Normal [facility] MR/IBIIAYSL5fj 07-09-2024 MR/POSTOPAN2 Normal [facility] Magnesiumon 07-09-2024 Magnesium [Mass/Vol] 2.3 mg/dL High 1.5-2.2 [facility] Comment on above: Performed By: #### L 100.0100, L500.2500, L501.2300, L501.5200 ####[facility] [address] [place], [address] Phosphoruson 07-09-2024 Phosphate [Mass/Vol] 4.9 mg/dL High 2.7-4.5 [facility] Comment on above: Performed By: #### L 100.0100, L500.2500, L501.2300, L501.5200 ####[facility] [address] [place], [address] Basic Metabolic Profile (BMP )on 07-08-2024 BUN/CRE 22.1 RATIO High 10-20 [facility] Comment on above: Performed By: #### L 500.2500, L100.0100 ####[facility] [address] [place], [address] Calcium [Mass/Vol] 8.9 mg/dL Normal 7.6-11.0 [facility] Comment on above: Performed By: #### L 500.2500, L100.0100 ####[facility] [address] [place], [address] Chloride [Moles/Vol] 107 mmol/L Normal 98-108 [facility] Comment on above: Performed By: #### L 500.2500, L100.0100 ####[facility] [address] [place], [address] CO2 [Moles/Vol] 21.0 mmol/L Normal 21.0-32.0 [facility] Comment on above: Performed By: #### L 500.2500, L100.0100 ####[facility] [address] [place], [address] Creatinine [Mass/Vol] 0.86 mg/dL Normal 0.70-1.20 [facility] Comment on above: Performed By: #### L 500.2500, L100.0100 ####[facility] [address] [place], [address] ECRCL 60.71 ml/min Normal 50-250 [facility] Comment on above: Performed By: #### L 500.2500, L100.0100 ####[facility] [address] [place], [address] GAP 10 Normal 5-15 [facility] Comment on above: Performed By: #### L 500.2500, L100.0100 ####[facility] [address] [place], [address] GFR/1.73 sq M.predicted among non-blacks MDRD (S/P/Bld) [Vol rate/Area] 93 mL/min/{1.73_m2} Normal >60 [facility] Comment on above: Result Comment: mL/m in/1.73m2 CKD-EPI Creatinine Equation (2020) Performed By: #### L 500.2500, L100.0100 ####[facility] [address] [place], [address] Glucose [Mass/Vol] 96 mg/dL Normal 70-99 [facility] Comment on above: Performed By: #### L 500.2500, L100.0100 ####[facility] [address] [place], [address] Potassium [Moles/Vol] 4.1 mmol/L Normal 3.3-5.1 [facility] Comment on above: Performed By: #### L 500.2500, L100.0100 ####[facility] [address] [place], [address] Sodium [Moles/Vol] 138 mmol/L Normal 133-145 [facility] Comment on above: Performed By: #### L 500.2500, L100.0100 ####[facility] [address] [place], [address] Urea nitrogen [Mass/Vol] 19 mg/dL Normal 4-19 [facility] Comment on above: Performed By: #### L 500.2500, L100.0100 ####[facility] [address] [place], [address] CBC W/Diff, Automatedon - Anisocytosis Ql (Bld) 1+ Normal [facility] Comment on above: Performed By: #### L 500.2500, L100.0100 ####[facility] [address] [place], [address] Consultation - Oncology IPon 07-08-2024 Consultation - Oncology IP Normal [facility] MR/CON.PCM.GIon 07-08-2024 MR/CON.PCM.GI Normal [facility] BRCon 07-07-2024 RC Normal [facility] Comment on above: Result Comment: [id number] OP RC TRANSFUSED 07/08/24 [id number] OP RC TRANSFUSED 07/08/24 [id number] OP RC TRANSFUSED 07/07/242107 Performed By: #### B RC ####[facility] [address] [place], [address] Basic Metabolic Profile (BMP )on 07-07-2024 BUN/CRE 20.9 RATIO High 10-20 [facility] Comment on above: Performed By: #### B TS, L500.2500, L100.0100, L300.3900, L300.4310 ####[facility] [address] [place], [address] Calcium [Mass/Vol] 8.8 mg/dL Normal 7.6-11.0 [facility] Comment on above: Performed By: #### B TS, L500.2500, L100.0100, L300.3900, L300.4310 ####[facility] [address] [place], [address] Chloride [Moles/Vol] 109 mmol/L High 98-108 [facility] Comment on above: Performed By: #### B TS, L500.2500, L100.0100, L300.3900, L300.4310 ####[facility] [address] [place], [address] CO2 [Moles/Vol] 21.0 mmol/L Normal 21.0-32.0 [facility] Comment on above: Performed By: #### B TS, L500.2500, L100.0100, L300.3900, L300.4310 ####[facility] [address] [place], [address] Creatinine [Mass/Vol] 1.01 mg/dL Normal 0.70-1.20 [facility] Comment on above: Performed By: #### B TS, L500.2500, L100.0100, L300.3900, L300.4310 ####[facility] [address] [place], [address] ECRCL 52.22 ml/min Normal 50-250 [facility] Comment on above: Performed By: #### B TS, L500.2500, L100.0100, L300.3900, L300.4310 ####[facility] [address] [place], [address] GAP 9 Normal 5-15 [facility] Comment on above: Performed By: #### B TS, L500.2500, L100.0100, L300.3900, L300.4310 ####[facility] [address] [place], [address] GFR/1.73 sq M.predicted among non-blacks MDRD (S/P/Bld) [Vol rate/Area] 80 mL/min/{1.73_m2} Normal >60 [facility] Comment on above: Result Comment: mL/m in/1.73m2 CKD-EPI Creatinine Equation (2020) Performed By: #### B TS, L500.2500, L100.0100, L300.3900, L300.4310 ####[facility] [address] [place], [address] Glucose [Mass/Vol] 94 mg/dL Normal 70-99 [facility] Comment on above: Performed By: #### B TS, L500.2500, L100.0100, L300.3900, L300.4310 ####[facility] [address] [place], [address] Potassium [Moles/Vol] 4.1 mmol/L Normal 3.3-5.1 [facility] Comment on above: Performed By: #### B TS, L500.2500, L100.0100, L300.3900, L300.4310 ####[facility] [address] [place], [address] Sodium [Moles/Vol] 139 mmol/L Normal 133-145 [facility] Comment on above: Performed By: #### B TS, L500.2500, L100.0100, L300.3900, L300.4310 ####[facility] [address] [place], [address] Urea nitrogen [Mass/Vol] 21 mg/dL High 4-19 [facility] Comment on above: Performed By: #### B TS, L500.2500, L100.0100, L300.3900, L300.4310 ####[facility] [address] [place], [address] CBC W/Diff, Automatedon 05-2 ACANTHOCYTE 1+ Normal [facility] Comment on above: Performed By: #### B TS, L500.2500, L100.0100, L300.3900, L300.4310 ####[facility] [address] [place], [address] Anisocytosis Ql (Bld) 3+ Normal [facility] Comment on above: Performed By: #### B TS, L500.2500, L100.0100, L300.3900, L300.4310 ####[facility] [address] [place], [address] OVALOCYTE 1+ Normal [facility] Comment on above: Performed By: #### B TS, L500.2500, L100.0100, L300.3900, L300.4310 ####[facility] [address] [place], [address] POLYCHROMASIA 1+ Normal [facility] Comment on above: Performed By: #### B TS, L500.2500, L100.0100, L300.3900, L300.4310 ####[facility] [address] [place], [address] TEAR DROP 1+ Normal [facility] Comment on above: Performed By: #### B TS, L500.2500, L100.0100, L300.3900, L300.4310 ####[facility] [address] [place], [address] PLT EST A Normal ADEQ [facility] Comment on above: Performed By: #### B TS, L500.2500, L100.0100, L300.3900, L300.4310 ####[facility] [address] [place], [address] Anisocytosis Ql (Bld) 3+ Normal [facility] Comment on above: Order Comment: NELLA LU ORDERED CBCRACHEL BERNABE ORDERED A CBCDLEFT MESSAGE TO RETURN CALL FOR CRITICAL RESULT 1225 SLCRITICAL VALUE CALLED TO LMCCLAIN AT MRDJBP81/27/25 1246 Shelley Romero.RESULTS READ BACK BY SAME. Performed By: #### L 100.0100 ####[facility] [address] [place], [address] POLYCHROMASIA 2+ Normal [facility] Comment on above: Order Comment: NELLA LU ORDERED CBCRACHEL BERNABE ORDERED A CBCDLEFT MESSAGE TO RETURN CALL FOR CRITICAL RESULT 1225 SLCRITICAL VALUE CALLED TO LMCCLAIN AT WZIUOR12/27/25 1246 Shelley Romero.RESULTS READ BACK BY SAME. Performed By: #### L 100.0100 ####[facility] [address] [place], [address] SMEAR COMMENT SCANNED Normal [facility] Comment on above: Order Comment: NELLA LU ORDERED CBCRACHEL BERNABE ORDERED A CBCDLEFT MESSAGE TO RETURN CALL FOR CRITICAL RESULT 1225 SLCRITICAL VALUE [facility] AT UEXHOY91/27/25 1246 Shelley Romero.RESULTS READ BACK BY SAME. Performed By: #### L 100.0100 ####[facility] [address] [place], [address] CTA Abd/Pelvis W/WO Contrast on 07-07-2024 CTA Abd/Pelvis W/WO Contrast Normal [facility] Comprehensive Metabolic Prof ilon 07-07-2024 Albumin [Mass/Vol] 3.6 g/dL Normal 3.4-4.8 [facility] Comment on above: Performed By: #### L 500.4050 ####[facility] [address] [place], [address] Albumin/Globulin [Mass ratio] 1.6 {ratio} Normal 0.9-2.4 [facility] Comment on above: Performed By: #### L 500.4050 ####[facility] [address] [place], [address] ALK PHOS 72 U/L Normal 40-129 [facility] Comment on above: Performed By: #### L 500.4050 ####[facility] [address] [place], [address] ALT [Catalytic activity/Vol] 24 U/L Normal <=46 [facility] Comment on above: Performed By: #### L 500.4050 ####[facility] [address] [place], [address] AST [Catalytic activity/Vol] 25 U/L Normal <=37 [facility] Comment on above: Performed By: #### L 500.4050 ####[facility] [address] [place], [address] BUN/CRE 22.1 RATIO High 10-20 [facility] Comment on above: Performed By: #### L 500.4050 ####[facility] [address] [place], [address] Calcium [Mass/Vol] 9.0 mg/dL Normal 7.6-11.0 [facility] Comment on above: Performed By: #### L 500.4050 ####[facility] [address] [place], [address] Chloride [Moles/Vol] 109 mmol/L High 98-108 [facility] Comment on above: Performed By: #### L 500.4050 ####[facility] [address] [place], [address] CO2 [Moles/Vol] 21.5 mmol/L Normal 21.0-32.0 [facility] Comment on above: Performed By: #### L 500.4050 ####[facility] [address] [place], [address] Creatinine [Mass/Vol] 0.95 mg/dL Normal 0.70-1.20 [facility] Comment on above: Performed By: #### L 500.4050 ####[facility] [address] [place], [address] GAP 10 Normal 5-15 [facility] Comment on above: Performed By: #### L 500.4050 ####[facility] [address] [place], [address] GFR/1.73 sq M.predicted among non-blacks MDRD (S/P/Bld) [Vol rate/Area] 86 mL/min/{1.73_m2} Normal >60 [facility] Comment on above: Result Comment: mL/m in/1.73m2 CKD-EPI Creatinine Equation (2020) Performed By: #### L 500.4050 ####[facility] [address] [place], [address] Globulin (S) [Mass/Vol] 2.3 g/dL Normal 2.2-4.2 [facility] Comment on above: Performed By: #### L 500.4050 ####[facility] [address] [place], [address] Glucose [Mass/Vol] 105 mg/dL High 70-99 [facility] Comment on above: Performed By: #### L 500.4050 ####[facility] [address] [place], [address] Potassium [Moles/Vol] 3.9 mmol/L Normal 3.3-5.1 [facility] Comment on above: Performed By: #### L 500.4050 ####[facility] [address] [place], [address] Sodium [Moles/Vol] 141 mmol/L Normal 133-145 [facility] Comment on above: Performed By: #### L 500.4050 ####[facility] [address] [place], [address] T BILI < 0.15 Normal 0.00-1.30 [facility] Comment on above: Performed By: #### L 500.4050 ####[facility] [address] [place], [address] T PROT 6.0 g/dL Normal 5.9-8.4 [facility] Comment on above: Performed By: #### L 500.4050 ####[facility] [address] [place], [address] Urea nitrogen [Mass/Vol] 21 mg/dL High 4-19 [facility] Comment on above: Performed By: #### L 500.4050 ####[facility] [address] [place], [address] Emergency Department Summary on 07-07-2024 Emergency Department Summary Normal [facility] H AND P Exam - Hospitaliston 07-07-2024 H&P Exam - Hospitalist Normal [facility] Iron+Iron Binding Capacityon 07-07-2024 Iron [Mass/Vol] 63 ug/dL Low 65-175 [facility] Comment on above: Performed By: #### L 500.3400, L503.6030 ####[facility] [address] [place], [address] IRON SATURATION 22.0 Normal 9-55 [facility] Comment on above: Performed By: #### L 500.3400, L503.6030 ####[facility] [address] [place], [address] TIBC 288 ug/dL Normal 250-450 [facility] Comment on above: Performed By: #### L 500.3400, L503.6030 ####[facility] [address] [place], [address] UIBC 225 ug/dL Low 228-428 [facility] Comment on above: Performed By: #### L 500.3400, L503.6030 ####[facility] [address] [place], [address] Liver Profileon 07-07-2024 Albumin [Mass/Vol] 3.9 g/dL Normal 3.4-4.8 [facility] Comment on above: Performed By: #### L 500.3400, L503.6030 ####[facility] [address] [place], [address] ALK PHOS 66 U/L Normal 40-129 [facility] Comment on above: Performed By: #### L 500.3400, L503.6030 ####[facility] [address] [place], [address] ALT [Catalytic activity/Vol] 22 U/L Normal <=46 [facility] Comment on above: Performed By: #### L 500.3400, L503.6030 ####[facility] [address] [place], [address] AST [Catalytic activity/Vol] 24 U/L Normal <=37 [facility] Comment on above: Performed By: #### L 500.3400, L503.6030 ####[facility] [address] [place], [address] D BILI < 0.08 Normal 0.00-0.30 [facility] Comment on above: Performed By: #### L 500.3400, L503.6030 ####[facility] [address] [place], [address] Globulin (S) [Mass/Vol] 2.2 g/dL Normal 2.2-4.2 [facility] Comment on above: Performed By: #### L 500.3400, L503.6030 ####[facility] [address] [place], [address] T BILI < 0.15 Normal 0.00-1.30 [facility] Comment on above: Performed By: #### L 500.3400, L503.6030 ####[facility] [address] [place], [address] T PROT 6.1 g/dL Normal 5.9-8.4 [facility] Comment on above: Performed By: #### L 500.3400, L503.6030 ####[facility] [address] [place], [address] Partial Thromboplast Timeon 07-07-2024 aPTT Coag (Bld) [Time] 32.8 s Normal 24.1-36.2 [facility] Comment on above: Performed By: #### B TS, L500.2500, L100.0100, L300.3900, L300.4310 ####[facility] [address] [place], [address] Prothrombin Time w/INRon INR Coag (PPP) [Relative time] 1.1 {INR} Normal [facility] Comment on above: Performed By: #### B TS, L500.2500, L100.0100, L300.3900, L300.4310 ####[facility] [address] [place], [address] PT Coag (PPP) [Time] 14.3 s Normal 11.7-14.9 [facility] Comment on above: Performed By: #### B TS, L500.2500, L100.0100, L300.3900, L300.4310 ####[facility] [address] [place], [address] Stool Occult Blood iFOBon STOB Positive Normal [facility] Comment on above: Performed By: #### M 100.7900 ####[facility] [address] [place], [address] Type AND Screenon 07-07-2024 Ab SCREEN GEL Negative Normal [facility] Comment on above: Order Comment: A Performed By: #### B TS, L500.2500, L100.0100, L300.3900, L300.4310 ####[facility] [address] [place], [address] Basic Metabolic Profile (BMP )on 06-25-2024 BUN/CRE 20.3 RATIO High 10-20 [facility] Comment on above: Performed By: #### L 500.2500, L100.0100 ####[facility] [address] [place], [address] Calcium [Mass/Vol] 9.2 mg/dL Normal 7.6-11.0 [facility] Comment on above: Performed By: #### L 500.2500, L100.0100 ####[facility] [address] [place], [address] Chloride [Moles/Vol] 102 mmol/L Normal 98-108 [facility] Comment on above: Performed By: #### L 500.2500, L100.0100 ####[facility] [address] [place], [address] CO2 [Moles/Vol] 20.7 mmol/L Low 21.0-32.0 [facility] Comment on above: Performed By: #### L 500.2500, L100.0100 ####[facility] [address] [place], [address] Creatinine [Mass/Vol] 0.83 mg/dL Normal 0.70-1.20 [facility] Comment on above: Performed By: #### L 500.2500, L100.0100 ####[facility] [address] [place], [address] ECRCL 62.70 ml/min Normal 50-250 [facility] Comment on above: Performed By: #### L 500.2500, L100.0100 ####[facility] [address] [place], [address] GAP 12 Normal 5-15 [facility] Comment on above: Performed By: #### L 500.2500, L100.0100 ####[facility] [address] [place], [address] GFR/1.73 sq M.predicted among non-blacks MDRD (S/P/Bld) [Vol rate/Area] 94 mL/min/{1.73_m2} Normal >60 [facility] Comment on above: Result Comment: mL/m in/1.73m2 CKD-EPI Creatinine Equation (2020) Performed By: #### L 500.2500, L100.0100 ####[facility] [address] [place], [address] Glucose [Mass/Vol] 110 mg/dL High 70-99 [facility] Comment on above: Performed By: #### L 500.2500, L100.0100 ####[facility] [address] [place], [address] Potassium [Moles/Vol] 3.9 mmol/L Normal 3.3-5.1 [facility] Comment on above: Result Comment: Hemo lysis present, Results??could be affected.?? Performed By: #### L 500.2500, L100.0100 ####[facility] [address] [place], [address] Sodium [Moles/Vol] 135 mmol/L Normal 133-145 [facility] Comment on above: Performed By: #### L 500.2500, L100.0100 ####[facility] [address] [place], [address] Urea nitrogen [Mass/Vol] 17 mg/dL Normal 4-19 [facility] Comment on above: Performed By: #### L 500.2500, L100.0100 ####[facility] [address] [place], [address] CBC W/Diff, Automatedon 05-1 5-2024 Absolute Lymph 1.43 X10 3/uL Normal 0.83-4.51 [facility] Comment on above: Performed By: #### L 500.2500, L100.0100 ####[facility] [address] [place], [address] Absolute Neut 8.2 X10 3/uL High 2.0-7.7 [facility] Comment on above: Performed By: #### L 500.2500, L100.0100 ####[facility] [address] [place], [address] Basophils/100 WBC (Bld) 0.3 % Normal 0-1 W [facility] Comment on above: Performed By: #### L 500.2500, L100.0100 ####[facility] [address] [place], [address] Eosinophils/100 WBC (Bld) 2.5 % Normal 0-5 [facility] Comment on above: Performed By: #### L 500.2500, L100.0100 ####[facility] [address] [place], [address] Erythrocyte distribution width (RBC) [Ratio] 19.1 % High 11.6-14.6 [facility] Comment on above: Performed By: #### L 500.2500, L100.0100 ####[facility] [address] [place], [address] Hematocrit (Bld) [Volume fraction] 29.5 % Low 40-54 [facility] Comment on above: Performed By: #### L 500.2500, L100.0100 ####[facility] [address] [place], [address] Hemoglobin (Bld) [Mass/Vol] 9.5 g/dL Low 13.0-16.5 [facility] Comment on above: Performed By: #### L 500.2500, L100.0100 ####[facility] [address] [place], [address] IG% 0.700 Normal 0.0-0.9 [facility] Comment on above: Result Comment: IG% - Immature Granulocytes (promyelocytes, myelocytes andmetamyelocytes) > 1% indicates that a LEFT SHIFT is Present. Performed By: #### L 500.2500, L100.0100 ####[facility] [id number] [place], [address] Lymphocytes/100 WBC (Bld) 13.3 % Low 19-41 [facility] Comment on above: Performed By: #### L 500.2500, L100.0100 ####[facility] [id number] [place], [address] MCH (RBC) [Entitic mass] 26.5 pg Low 27.0-32.0 [facility] Comment on above: Performed By: #### L 500.2500, L100.0100 ####[facility] [id number] [place], [address] MCHC (RBC) [Mass/Vol] 32.2 g/dL Normal 32-36 [facility] Comment on above: Performed By: #### L 500.2500, L100.0100 ####[facility] [id number] [place], [address] MCV (RBC) [Entitic vol] 82.2 fL Normal 80-94 [facility] Comment on above: Performed By: #### L 500.2500, L100.0100 ####[facility] [id number] [place], [address] Monocytes/100 WBC (Bld) 7.0 % Normal 0-10 [facility] Comment on above: Performed By: #### L 500.2500, L100.0100 ####[facility] [address] [place], [address] Neutrophils/100 WBC (Bld) 76.2 % High 47-70 [facility] Comment on above: Performed By: #### L 500.2500, L100.0100 ####[facility] [address] [place], [address] Nucleated RBC (Bld) [#/Vol] 0 10*3/uL Normal 0-5 [facility] Comment on above: Performed By: #### L 500.2500, L100.0100 ####[facility] [address] [place], [address] Platelet mean volume (Bld) [Entitic vol] 9.2 fL Normal 6.2-12.0 [facility] Comment on above: Performed By: #### L 500.2500, L100.0100 ####[facility] [address] [place], [address] Platelets (Bld) [#/Vol] 449 10*3/uL Normal 150-450 [facility] Comment on above: Performed By: #### L 500.2500, L100.0100 ####[facility] [address] [place], [address] RBC (Bld) [#/Vol] 3.59 10*6/uL Low 4.6-6.2 [facility] Comment on above: Performed By: #### L 500.2500, L100.0100 ####[facility] [address] [place], [address] RDW SD 56.4 fl High 35.1-43.9 [facility] Comment on above: Performed By: #### L 500.2500, L100.0100 ####[facility] [address] [place], [address] WBC (Bld) [#/Vol] 10.8 10*3/uL Normal 4.4-11.0 [facility] Comment on above: Performed By: #### L 500.2500, L100.0100 ####[facility] [address] [place], [address] ACT Activated Clotting Timeo n 06-24-2024 ACTk CLOT TIME 210 sec High 74-137 [facility] Comment on above: Performed By: #### L 9100.0100 ####[facility] [address] [place], [address] ACTk CLOT TIME 216 sec High 74-137 [facility] Comment on above: Performed By: #### L 9100.0100 ####[facility] [address] [place], [address] ACTk CLOT TIME 204 sec High 74-137 [facility] Comment on above: Performed By: #### L 9100.0100 ####[facility] [address] [place], [address] Operative Reporton Operative Report Normal [facility] Basic Metabolic Profile (BMP )on 06-19-2024 BUN/CRE 25.7 RATIO High 10-20 [facility] Comment on above: Performed By: #### L 100.0500, L500.2500 ####[facility] [address] [place], [address] Calcium [Mass/Vol] 9.2 mg/dL Normal 7.6-11.0 [facility] Comment on above: Performed By: #### L 100.0500, L500.2500 ####[facility] [address] [place], [address] Chloride [Moles/Vol] 106 mmol/L Normal 98-108 [facility] Comment on above: Performed By: #### L 100.0500, L500.2500 ####[facility] [address] [place], [address] CO2 [Moles/Vol] 19.6 mmol/L Low 21.0-32.0 [facility] Comment on above: Performed By: #### L 100.0500, L500.2500 ####[facility] [address] [place], [address] Creatinine [Mass/Vol] 0.81 mg/dL Normal 0.70-1.20 [facility] Comment on above: Performed By: #### L 100.0500, L500.2500 ####[facility] [address] [place], [address] ECRCL 64.24 ml/min Normal 50-250 [facility] Comment on above: Performed By: #### L 100.0500, L500.2500 ####[facility] [address] [place], [address] GAP 12 Normal 5-15 [facility] Comment on above: Performed By: #### L 100.0500, L500.2500 ####[facility] [address] [place], [address] GFR/1.73 sq M.predicted among non-blacks MDRD (S/P/Bld) [Vol rate/Area] 95 mL/min/{1.73_m2} Normal >60 [facility] Comment on above: Result Comment: mL/m in/1.73m2 CKD-EPI Creatinine Equation (2020) Performed By: #### L 100.0500, L500.2500 ####[facility] [address] [place], [address] Glucose [Mass/Vol] 117 mg/dL High 70-99 [facility] Comment on above: Performed By: #### L 100.0500, L500.2500 ####[facility] [address] [place], [address] Potassium [Moles/Vol] 3.9 mmol/L Normal 3.3-5.1 [facility] Comment on above: Performed By: #### L 100.0500, L500.2500 ####[facility] [address] [place], [address] Sodium [Moles/Vol] 138 mmol/L Normal 133-145 [facility] Comment on above: Performed By: #### L 100.0500, L500.2500 ####[facility] [address] [place], [address] Urea nitrogen [Mass/Vol] 21 mg/dL High 4-19 [facility] Comment on above: Performed By: #### L 100.0500, L500.2500 ####[facility] [address] [place], [address] CBC-Complete Blood Cnt No Di ffon 06-19-2024 Erythrocyte distribution width (RBC) [Ratio] 18.2 % High 11.6-14.6 [facility] Comment on above: Performed By: #### L 100.0500, L500.2500 ####[facility] [address] [place], [address] Hematocrit (Bld) [Volume fraction] 30.2 % Low 40-54 [facility] Comment on above: Performed By: #### L 100.0500, L500.2500 ####[facility] [address] [place], [address] Hemoglobin (Bld) [Mass/Vol] 9.3 g/dL Low 13.0-16.5 [facility] Comment on above: Performed By: #### L 100.0500, L500.2500 ####[facility] [address] [place], [address] MCH (RBC) [Entitic mass] 25.8 pg Low 27.0-32.0 [facility] Comment on above: Performed By: #### L 100.0500, L500.2500 ####[facility] [address] [place], [address] MCHC (RBC) [Mass/Vol] 30.8 g/dL Low 32-36 [facility] Comment on above: Performed By: #### L 100.0500, L500.2500 ####[facility] [address] [place], [address] MCV (RBC) [Entitic vol] 83.9 fL Normal 80-94 [facility] Comment on above: Performed By: #### L 100.0500, L500.2500 ####[facility] [address] [place], [address] Platelet mean volume (Bld) [Entitic vol] 10.0 fL Normal 6.2-12.0 [facility] Comment on above: Performed By: #### L 100.0500, L500.2500 ####[facility] [address] [place], [address] Platelets (Bld) [#/Vol] 320 10*3/uL Normal 150-450 [facility] Comment on above: Performed By: #### L 100.0500, L500.2500 ####[facility] [address] [place], [address] RBC (Bld) [#/Vol] 3.60 10*6/uL Low 4.6-6.2 [facility] Comment on above: Performed By: #### L 100.0500, L500.2500 ####[facility] [address] [place], [address] RDW SD 54.9 fl High 35.1-43.9 [facility] Comment on above: Performed By: #### L 100.0500, L500.2500 ####[facility] [address] [place], [address] WBC (Bld) [#/Vol] 7.6 10*3/uL Normal 4.4-11.0 [facility] Comment on above: Performed By: #### L 100.0500, L500.2500 ####[facility] [address] [place], [address] Gastroenterology Visit Repor ton 06-19-2024 Gastroenterology Visit Report Normal [facility] Basic Metabolic Profile (BMP )on 06-14-2024 BUN Normal 4-19 [facility] Comment on above: Result Comment: Canc elled via OM: Order cancelled - Patient discharged Performed By: #### L 500.2500, L100.0100 ####[facility] [address] [place], [address] BUN/CRE Normal 10-20 [facility] Comment on above: Result Comment: Canc elled via OM: Order cancelled - Patient discharged Performed By: #### L 500.2500, L100.0100 ####[facility] [address] [place], [address] Calcium Normal 7.6-11.0 [facility] Comment on above: Result Comment: Canc elled via OM: Order cancelled - Patient discharged Performed By: #### L 500.2500, L100.0100 ####[facility] [address] [place], [address] CL Normal 98-108 [facility] Comment on above: Result Comment: Canc elled via OM: Order cancelled - Patient discharged Performed By: #### L 500.2500, L100.0100 ####[facility] [address] [place], [address] CO2 Normal 21.0-32.0 [facility] Comment on above: Result Comment: Canc elled via OM: Order cancelled - Patient discharged Performed By: #### L 500.2500, L100.0100 ####[facility] [address] [place], [address] CREAT,SERUM Normal 0.70-1.20 [facility] Comment on above: Result Comment: Canc elled via OM: Order cancelled - Patient discharged Performed By: #### L 500.2500, L100.0100 ####[facility] [address] [place], [address] eGFR Normal >60 [facility] Comment on above: Result Comment: Canc elled via OM: Order cancelled - Patient discharged Performed By: #### L 500.2500, L100.0100 ####[facility] [address] [place], [address] GAP Normal 5-15 [facility] Comment on above: Result Comment: Canc elled via OM: Order cancelled - Patient discharged Performed By: #### L 500.2500, L100.0100 ####[facility] [address] [place], [address] GLU Normal 70-99 [facility] Comment on above: Result Comment: Canc elled via OM: Order cancelled - Patient discharged Performed By: #### L 500.2500, L100.0100 ####[facility] [address] [place], [address] Potassium Normal 3.3-5.1 [facility] Comment on above: Result Comment: Canc elled via OM: Order cancelled - Patient discharged Performed By: #### L 500.2500, L100.0100 ####[facility] [address] [place], [address] Basic Metabolic Profile (BMP) Normal 133-145 [facility] Comment on above: Result Comment: Canc elled via OM: Order cancelled - Patient discharged Performed By: #### L 500.2500, L100.0100 ####[facility] [address] [place], [address] CBC W/Diff, Automatedon 05-0 -2024 Absolute Neut Normal 2.0-7.7 [facility] Comment on above: Result Comment: Canc elled via OM: Order cancelled - Patient discharged Performed By: #### L 500.2500, L100.0100 ####[facility] [address] [place], [address] HCT Normal 40-54 [facility] Comment on above: Result Comment: Canc elled via OM: Order cancelled - Patient discharged Performed By: #### L 500.2500, L100.0100 ####[facility] [address] [place], [address] HGB Normal 13.0-16.5 [facility] Comment on above: Result Comment: Canc elled via OM: Order cancelled - Patient discharged Performed By: #### L 500.2500, L100.0100 ####[facility] [address] [place], [address] MCH Normal 27.0-32.0 [facility] Comment on above: Result Comment: Canc elled via OM: Order cancelled - Patient discharged Performed By: #### L 500.2500, L100.0100 ####[facility] [address] [place], [address] MCHC Normal 32-36 [facility] Comment on above: Result Comment: Canc elled via OM: Order cancelled - Patient discharged Performed By: #### L 500.2500, L100.0100 ####[facility] [address] [place], [address] MCV Normal 80-94 [facility] Comment on above: Result Comment: Canc elled via OM: Order cancelled - Patient discharged Performed By: #### L 500.2500, L100.0100 ####[facility] [address] [place], [address] NEUT% Normal 47-70 [facility] Comment on above: Result Comment: Canc elled via OM: Order cancelled - Patient discharged Performed By: #### L 500.2500, L100.0100 ####[facility] [address] [place], [address] PLT Normal 150-450 [facility] Comment on above: Result Comment: Canc elled via OM: Order cancelled - Patient discharged Performed By: #### L 500.2500, L100.0100 ####[facility] [address] [place], [address] RBC Normal 4.6-6.2 [facility] Comment on above: Result Comment: Canc elled via OM: Order cancelled - Patient discharged Performed By: #### L 500.2500, L100.0100 ####[facility] [address] [place], [address] RDW CV Normal 11.6-14.6 [facility] Comment on above: Result Comment: Canc elled via OM: Order cancelled - Patient discharged Performed By: #### L 500.2500, L100.0100 ####[facility] [address] [place], [address] RDW SD Normal 35.1-43.9 [facility] Comment on above: Result Comment: Canc elled via OM: Order cancelled - Patient discharged Performed By: #### L 500.2500, L100.0100 ####[facility] [address] [place], [address] WBC Normal 4.4-11.0 [facility] Comment on above: Result Comment: Canc elled via OM: Order cancelled - Patient discharged Performed By: #### L 500.2500, L100.0100 ####[facility] [address] [place], [address] Basic Metabolic Profile (BMP )on 06-13-2024 BUN/CRE 14.1 RATIO Normal 10-20 [facility] Comment on above: Performed By: #### L 500.2500, L100.0100 ####[facility] [address] [place], [address] Calcium [Mass/Vol] 9.5 mg/dL Normal 7.6-11.0 [facility] Comment on above: Performed By: #### L 500.2500, L100.0100 ####[facility] [address] [place], [address] Chloride [Moles/Vol] 102 mmol/L Normal 98-108 [facility] Comment on above: Performed By: #### L 500.2500, L100.0100 ####[facility] [address] [place], [address] CO2 [Moles/Vol] 18.9 mmol/L Low 21.0-32.0 [facility] Comment on above: Performed By: #### L 500.2500, L100.0100 ####[facility] [address] [place], [address] Creatinine [Mass/Vol] 1.01 mg/dL Normal 0.70-1.20 [facility] Comment on above: Performed By: #### L 500.2500, L100.0100 ####[facility] [address] [place], [address] ECRCL 49.19 ml/min Low 50-250 [facility] Comment on above: Performed By: #### L 500.2500, L100.0100 ####[facility] [address] [place], [address] GAP 16 High 5-15 [facility] Comment on above: Performed By: #### L 500.2500, L100.0100 ####[facility] [address] [place], [address] GFR/1.73 sq M.predicted among non-blacks MDRD (S/P/Bld) [Vol rate/Area] 80 mL/min/{1.73_m2} Normal >60 [facility] Comment on above: Result Comment: mL/m in/1.73m2 CKD-EPI Creatinine Equation (2020) Performed By: #### L 500.2500, L100.0100 ####[facility] [address] [place], [address] Glucose [Mass/Vol] 101 mg/dL High 70-99 [facility] Comment on above: Performed By: #### L 500.2500, L100.0100 ####[facility] [address] [place], [address] Potassium [Moles/Vol] 3.7 mmol/L Normal 3.3-5.1 [facility] Comment on above: Performed By: #### L 500.2500, L100.0100 ####[facility] [address] [place], [address] Sodium [Moles/Vol] 137 mmol/L Normal 133-145 [facility] Comment on above: Performed By: #### L 500.2500, L100.0100 ####[facility] [address] [place], [address] Urea nitrogen [Mass/Vol] 14 mg/dL Normal 4-19 [facility] Comment on above: Performed By: #### L 500.2500, L100.0100 ####[facility] [address] [place], [address] CBC W/Diff, Automatedon 05-0 3-5 Absolute Lymph 2.12 X10 3/uL Normal 0.83-4.51 [facility] Comment on above: Performed By: #### L 500.2500, L100.0100 ####[facility] [address] [place], [address] Absolute Neut 3.5 X10 3/uL Normal 2.0-7.7 [facility] Comment on above: Performed By: #### L 500.2500, L100.0100 ####[facility] [address] [place], [address] Basophils/100 WBC (Bld) 0.3 % Normal 0-1 [facility] Comment on above: Performed By: #### L 500.2500, L100.0100 ####[facility] [address] [place], [address] Eosinophils/100 WBC (Bld) 3.1 % Normal 0-5 [facility] Comment on above: Performed By: #### L 500.2500, L100.0100 ####[facility] [address] [place], [address] Erythrocyte distribution width (RBC) [Ratio] 16.7 % High 11.6-14.6 [facility] Comment on above: Performed By: #### L 500.2500, L100.0100 ####[facility] [address] [place], [address] Hematocrit (Bld) [Volume fraction] 36.0 % Low 40-54 [facility] Comment on above: Performed By: #### L 500.2500, L100.0100 ####[facility] [address] [place], [address] Hemoglobin (Bld) [Mass/Vol] 11.5 g/dL Low 13.0-16.5 [facility] Comment on above: Performed By: #### L 500.2500, L100.0100 ####[facility] [address] [place], [address] IG% 0.300 Normal 0.0-0.9 [facility] Comment on above: Result Comment: IG% - Immature Granulocytes (promyelocytes, myelocytes andmetamyelocytes) > 1% indicates that a LEFT SHIFT is Present. Performed By: #### L 500.2500, L100.0100 ####[facility] [address] [place], [address] Lymphocytes/100 WBC (Bld) 31.8 % Normal 19-41 [facility] Comment on above: Performed By: #### L 500.2500, L100.0100 ####[facility] [address] [place], [address] MCH (RBC) [Entitic mass] 25.7 pg Low 27.0-32.0 [facility] Comment on above: Performed By: #### L 500.2500, L100.0100 ####[facility] [address] [place], [address] MCHC (RBC) [Mass/Vol] 31.9 g/dL Low 32-36 [facility] Comment on above: Performed By: #### L 500.2500, L100.0100 ####[facility] [address] [place], [address] MCV (RBC) [Entitic vol] 80.5 fL Normal 80-94 [facility] Comment on above: Performed By: #### L 500.2500, L100.0100 ####[facility] [address] [place], [address] Monocytes/100 WBC (Bld) 11.8 % High 0-10 [facility] Comment on above: Performed By: #### L 500.2500, L100.0100 ####[facility] [address] [place], [address] Neutrophils/100 WBC (Bld) 52.7 % Normal 47-70 [facility] Comment on above: Performed By: #### L 500.2500, L100.0100 ####[facility] [address] [place], [address] Nucleated RBC (Bld) [#/Vol] 0 10*3/uL Normal 0-5 [facility] Comment on above: Performed By: #### L 500.2500, L100.0100 ####[facility] [address] [place], [address] Platelet mean volume (Bld) [Entitic vol] 9.1 fL Normal 6.2-12.0 [facility] Comment on above: Performed By: #### L 500.2500, L100.0100 ####[facility] [address] [place], [address] Platelets (Bld) [#/Vol] 346 10*3/uL Normal 150-450 [facility] Comment on above: Performed By: #### L 500.2500, L100.0100 ####[facility] [address] [place], [address] RBC (Bld) [#/Vol] 4.47 10*6/uL Low 4.6-6.2 [facility] Comment on above: Performed By: #### L 500.2500, L100.0100 ####[facility] [address] [place], [address] RDW SD 48.7 fl High 35.1-43.9 [facility] Comment on above: Performed By: #### L 500.2500, L100.0100 ####[facility] [address] [place], [address] WBC (Bld) [#/Vol] 6.7 10*3/uL Normal 4.4-11.0 [facility] Comment on above: Performed By: #### L 500.2500, L100.0100 ####[facility] [address] [place], [address] Colonoscopy Reporton 025 Colonoscopy Report Normal [facility] MR/POSTOP.ANEon 06-13-2024 MR/POSTOP.ANE Normal [facility] MR/XIKWWDAU8ji 06-13-2024 MR/POSTOPAN2 Normal [facility] Surgery Specimen Level Nikko 06-13-2024 Surgery Specimen Level IV Normal [facility] Comment on above: Performed By: #### P SUIV ####[facility] [address] [place], [address] 12 Lead EKGon 06-12-2024 12 Lead EKG Normal [facility] Basic Metabolic Profile (BMP )on 06-12-2024 BUN/CRE 13.5 RATIO Normal 10-20 [facility] Comment on above: Performed By: #### L 100.0100, L500.3400, L501.5200, L501.2300, L500.4100, L500.2500 ####[facility] [address] [place], [address] Calcium [Mass/Vol] 9.8 mg/dL Normal 7.6-11.0 [facility] Comment on above: Performed By: #### L 100.0100, L500.3400, L501.5200, L501.2300, L500.4100, L500.2500 ####[facility] [address] [place], [address] Chloride [Moles/Vol] 106 mmol/L Normal 98-108 [facility] Comment on above: Performed By: #### L 100.0100, L500.3400, L501.5200, L501.2300, L500.4100, L500.2500 ####[facility] [address] [place], [address] CO2 [Moles/Vol] 22.0 mmol/L Normal 21.0-32.0 [facility] Comment on above: Performed By: #### L 100.0100, L500.3400, L501.5200, L501.2300, L500.4100, L500.2500 ####[facility] [address] [place], [address] Creatinine [Mass/Vol] 0.98 mg/dL Normal 0.70-1.20 [facility] Comment on above: Performed By: #### L 100.0100, L500.3400, L501.5200, L501.2300, L500.4100, L500.2500 ####[facility] [address] [place], [address] ECRCL 50.69 ml/min Normal 50-250 [facility] Comment on above: Performed By: #### L 100.0100, L500.3400, L501.5200, L501.2300, L500.4100, L500.2500 ####[facility] [address] [place], [address] GAP 12 Normal 5-15 [facility] Comment on above: Performed By: #### L 100.0100, L500.3400, L501.5200, L501.2300, L500.4100, L500.2500 ####[facility] [address] [place], [address] GFR/1.73 sq M.predicted among non-blacks MDRD (S/P/Bld) [Vol rate/Area] 83 mL/min/{1.73_m2} Normal >60 [facility] Comment on above: Result Comment: mL/m in/1.73m2 CKD-EPI Creatinine Equation (2020) Performed By: #### L 100.0100, L500.3400, L501.5200, L501.2300, L500.4100, L500.2500 ####[facility] [address] [place], [address] Glucose [Mass/Vol] 90 mg/dL Normal 70-99 [facility] Comment on above: Performed By: #### L 100.0100, L500.3400, L501.5200, L501.2300, L500.4100, L500.2500 ####[facility] [address] [place], [address] Potassium [Moles/Vol] 4.3 mmol/L Normal 3.3-5.1 [facility] Comment on above: Result Comment: Hemo lysis present, Results??could be affected.?? Performed By: #### L 100.0100, L500.3400, L501.5200, L501.2300, L500.4100, L500.2500 ####[facility] [address] [place], [address] Sodium [Moles/Vol] 140 mmol/L Normal 133-145 [facility] Comment on above: Performed By: #### L 100.0100, L500.3400, L501.5200, L501.2300, L500.4100, L500.2500 ####[facility] [address] [place], [address] Urea nitrogen [Mass/Vol] 13 mg/dL Normal 4-19 [facility] Comment on above: Performed By: #### L 100.0100, L500.3400, L501.5200, L501.2300, L500.4100, L500.2500 ####[facility] [address] [place], [address] CBC W/Diff, Automatedon 05-0 2-2025 Absolute Lymph 1.50 X10 3/uL Normal 0.83-4.51 [facility] Comment on above: Performed By: #### L 100.0100, L500.3400, L501.5200, L501.2300, L500.4100, L500.2500 ####[facility] [address] [place], [address] Absolute Neut 4.8 X10 3/uL Normal 2.0-7.7 [facility] Comment on above: Performed By: #### L 100.0100, L500.3400, L501.5200, L501.2300, L500.4100, L500.2500 ####[facility] [address] [place], [address] Basophils/100 WBC (Bld) 0.5 % Normal 0-1 [facility] Comment on above: Performed By: #### L 100.0100, L500.3400, L501.5200, L501.2300, L500.4100, L500.2500 ####[facility] [address] [place], [address] Eosinophils/100 WBC (Bld) 3.1 % Normal 0-5 [facility] Comment on above: Performed By: #### L 100.0100, L500.3400, L501.5200, L501.2300, L500.4100, L500.2500 ####[facility] [address] [place], [address] Erythrocyte distribution width (RBC) [Ratio] 16.4 % High 11.6-14.6 [facility] Comment on above: Performed By: #### L 100.0100, L500.3400, L501.5200, L501.2300, L500.4100, L500.2500 ####[facility] [address] [place], [address] Hematocrit (Bld) [Volume fraction] 36.1 % Low 40-54 [facility] Comment on above: Performed By: #### L 100.0100, L500.3400, L501.5200, L501.2300, L500.4100, L500.2500 ####[facility] [address] [place], [address] Hemoglobin (Bld) [Mass/Vol] 11.5 g/dL Low 13.0-16.5 [facility] Comment on above: Performed By: #### L 100.0100, L500.3400, L501.5200, L501.2300, L500.4100, L500.2500 ####[facility] [address] [place], [address] IG% 0.400 Normal 0.0-0.9 [facility] Comment on above: Result Comment: IG% - Immature Granulocytes (promyelocytes, myelocytes andmetamyelocytes) > 1% indicates that a LEFT SHIFT is Present. Performed By: #### L 100.0100, L500.3400, L501.5200, L501.2300, L500.4100, L500.2500 ####[facility] [address] [place], [address] Lymphocytes/100 WBC (Bld) 20.0 % Normal 19-41 [facility] Comment on above: Performed By: #### L 100.0100, L500.3400, L501.5200, L501.2300, L500.4100, L500.2500 ####[facility] [address] [place], [address] MCH (RBC) [Entitic mass] 25.8 pg Low 27.0-32.0 [facility] Comment on above: Performed By: #### L 100.0100, L500.3400, L501.5200, L501.2300, L500.4100, L500.2500 ####[facility] [address] [place], [address] MCHC (RBC) [Mass/Vol] 31.9 g/dL Low 32-36 [facility] Comment on above: Performed By: #### L 100.0100, L500.3400, L501.5200, L501.2300, L500.4100, L500.2500 ####[facility] [address] [place], [address] MCV (RBC) [Entitic vol] 81.1 fL Normal 80-94 [facility] Comment on above: Performed By: #### L 100.0100, L500.3400, L501.5200, L501.2300, L500.4100, L500.2500 ####[facility] [address] [place], [address] Monocytes/100 WBC (Bld) 12.0 % High 0-10 [facility] Comment on above: Performed By: #### L 100.0100, L500.3400, L501.5200, L501.2300, L500.4100, L500.2500 ####[facility] [address] [place], [address] Neutrophils/100 WBC (Bld) 64.0 % Normal 47-70 [facility] Comment on above: Performed By: #### L 100.0100, L500.3400, L501.5200, L501.2300, L500.4100, L500.2500 ####[facility] [address] [place], [address] Nucleated RBC (Bld) [#/Vol] 0 10*3/uL Normal 0-5 [facility] Comment on above: Performed By: #### L 100.0100, L500.3400, L501.5200, L501.2300, L500.4100, L500.2500 ####[facility] [address] [place], [address] Platelet mean volume (Bld) [Entitic vol] 9.7 fL Normal 6.2-12.0 [facility] Comment on above: Performed By: #### L 100.0100, L500.3400, L501.5200, L501.2300, L500.4100, L500.2500 ####[facility] [address] [place], [address] Platelets (Bld) [#/Vol] 370 10*3/uL Normal 150-450 [facility] Comment on above: Performed By: #### L 100.0100, L500.3400, L501.5200, L501.2300, L500.4100, L500.2500 ####[facility] [address] [place], [address] RBC (Bld) [#/Vol] 4.45 10*6/uL Low 4.6-6.2 [facility] Comment on above: Performed By: #### L 100.0100, L500.3400, L501.5200, L501.2300, L500.4100, L500.2500 ####[facility] [address] [place], [address] RDW SD 48.2 fl High 35.1-43.9 [facility] Comment on above: Performed By: #### L 100.0100, L500.3400, L501.5200, L501.2300, L500.4100, L500.2500 ####[facility] [address] [place], [address] WBC (Bld) [#/Vol] 7.5 10*3/uL Normal 4.4-11.0 [facility] Comment on above: Performed By: #### L 100.0100, L500.3400, L501.5200, L501.2300, L500.4100, L500.2500 ####[facility] [address] [place], [address] EGD Reporton 06-12-2024 EGD Report Normal [facility] Lipid Profileon 06-12-2024 CHOL:HDL 1.64 Normal [facility] Comment on above: Performed By: #### L 100.0100, L500.3400, L501.5200, L501.2300, L500.4100, L500.2500 ####[facility] [address] [place], [address] Cholesterol [Mass/Vol] 107 mg/dL Normal <=200 [facility] Comment on above: Result Comment: Chol esterol level, Desirable <200 mg/dLBorderline high cholesterol 200-239 mg/dLHigh cholesterol >=240 mg/dLRecommendations of the NCEP Adult Treatment Panel for thefollowing risk-cutoff thresholds for the [place] Americanpulation. Performed By: #### L 100.0100, L500.3400, L501.5200, L501.2300, L500.4100, L500.2500 ####[facility] [address] [place], [address] Cholesterol in HDL [Mass/Vol] 65 mg/dL Normal [facility] Comment on above: Result Comment: Ramona onal Cholesterol Education Program (NCEP) guidelines:<40 mg/dL: Low HDL-cholesterol (major risk factor for CHD)>= 60 mg/dL: High HDL-cholesterol (negative risk factor forCHD)HDL-cholesterol is affected by a number of factors, e.g.smoking, exercise, hormones, sex and age. Performed By: #### L 100.0100, L500.3400, L501.5200, L501.2300, L500.4100, L500.2500 ####[facility] [address] [place], [address] Cholesterol in LDL [Mass/Vol] 32 mg/dL Normal [facility] Comment on above: Result Comment: Bord ztgzeb=775-450 mg/dL Higher Cnqd=865 mg/dL or greater Performed By: #### L 100.0100, L500.3400, L501.5200, L501.2300, L500.4100, L500.2500 ####[facility] [address] [place], [address] Cholesterol in VLDL [Mass/Vol] 10 mg/dL Normal 5-40 [facility] Comment on above: Performed By: #### L 100.0100, L500.3400, L501.5200, L501.2300, L500.4100, L500.2500 ####[facility] [address] [place], [address] Triglyceride [Mass/Vol] 51 mg/dL Normal [facility] Comment on above: Result Comment: The drugs N-Acetylcysteine and Metamizole may falselydepress this assay.Normal range: <150 mg/dLBorderline High: 150-199 mg/dLHigh: 200-499 mg/dLVery High: >500 mg/dL Performed By: #### L 100.0100, L500.3400, L501.5200, L501.2300, L500.4100, L500.2500 ####[facility] [address] [place], [address] Liver Profileon 06-12-2024 Albumin [Mass/Vol] 4.5 g/dL Normal 3.4-4.8 [facility] Comment on above: Performed By: #### L 100.0100, L500.3400, L501.5200, L501.2300, L500.4100, L500.2500 ####[facility] [address] [place], [address] ALK PHOS 67 U/L Normal 40-129 [facility] Comment on above: Performed By: #### L 100.0100, L500.3400, L501.5200, L501.2300, L500.4100, L500.2500 ####[facility] [address] [place], [address] ALT [Catalytic activity/Vol] 20 U/L Normal <=46 [facility] Comment on above: Performed By: #### L 100.0100, L500.3400, L501.5200, L501.2300, L500.4100, L500.2500 ####[facility] [address] [place], [address] AST [Catalytic activity/Vol] 33 U/L Normal <=37 [facility] Comment on above: Result Comment: Hemo lysis present, Results??could be affected.?? Performed By: #### L 100.0100, L500.3400, L501.5200, L501.2300, L500.4100, L500.2500 ####[facility] [address] [place], [address] Bilirubin [Mass/Vol] 0.28 mg/dL Normal 0.00-1.30 [facility] Comment on above: Performed By: #### L 100.0100, L500.3400, L501.5200, L501.2300, L500.4100, L500.2500 ####[facility] [address] [place], [address] Bilirubin.direct [Mass/Vol] 0.14 mg/dL Normal 0.00-0.30 [facility] Comment on above: Result Comment: Hemo lysis present, Results??could be affected.?? Performed By: #### L 100.0100, L500.3400, L501.5200, L501.2300, L500.4100, L500.2500 ####[facility] [address] [place], [address] Globulin (S) [Mass/Vol] 3.1 g/dL Normal 2.2-4.2 [facility] Comment on above: Performed By: #### L 100.0100, L500.3400, L501.5200, L501.2300, L500.4100, L500.2500 ####[facility] [address] [place], [address] T PROT 7.6 g/dL Normal 5.9-8.4 [facility] Comment on above: Performed By: #### L 100.0100, L500.3400, L501.5200, L501.2300, L500.4100, L500.2500 ####[facility] [address] [place], [address] MR/POSTOP.ANEon 06-12-2024 MR/POSTOP.ANE Normal [facility] Magnesiumon 06-12-2024 Magnesium [Mass/Vol] 2.4 mg/dL High 1.5-2.2 [facility] Comment on above: Performed By: #### L 100.0100, L500.3400, L501.5200, L501.2300, L500.4100, L500.2500 ####[facility] [address] [place], [address] Phosphoruson 06-12-2024 Phosphate [Mass/Vol] 3.8 mg/dL Normal 2.7-4.5 [facility] Comment on above: Performed By: #### L 100.0100, L500.3400, L501.5200, L501.2300, L500.4100, L500.2500 ####[facility] [address] [place], [address] Basic Metabolic Profile (BMP )on 06-11-2024 BUN/CRE 13.8 RATIO Normal 10-20 [facility] Comment on above: Performed By: #### L 100.0100, L500.2500 ####[facility] [address] [place], [address] Calcium [Mass/Vol] 9.5 mg/dL Normal 7.6-11.0 [facility] Comment on above: Performed By: #### L 100.0100, L500.2500 ####[facility] [address] [place], [address] Chloride [Moles/Vol] 107 mmol/L Normal 98-108 [facility] Comment on above: Performed By: #### L 100.0100, L500.2500 ####[facility] [address] [place], [address] CO2 [Moles/Vol] 21.1 mmol/L Normal 21.0-32.0 [facility] Comment on above: Performed By: #### L 100.0100, L500.2500 ####[facility] [address] [place], [address] Creatinine [Mass/Vol] 0.97 mg/dL Normal 0.70-1.20 [facility] Comment on above: Performed By: #### L 100.0100, L500.2500 ####[facility] [address] [place], [address] ECRCL 51.22 ml/min Normal 50-250 [facility] Comment on above: Performed By: #### L 100.0100, L500.2500 ####[facility] [address] [place], [address] GAP 10 Normal 5-15 [facility] Comment on above: Performed By: #### L 100.0100, L500.2500 ####[facility] [address] [place], [address] GFR/1.73 sq M.predicted among non-blacks MDRD (S/P/Bld) [Vol rate/Area] 84 mL/min/{1.73_m2} Normal >60 [facility] Comment on above: Result Comment: mL/m in/1.73m2 CKD-EPI Creatinine Equation (2020) Performed By: #### L 100.0100, L500.2500 ####[facility] [address] [place], [address] Glucose [Mass/Vol] 98 mg/dL Normal 70-99 [facility] Comment on above: Performed By: #### L 100.0100, L500.2500 ####[facility] [address] [place], [address] Potassium [Moles/Vol] 4.0 mmol/L Normal 3.3-5.1 [facility] Comment on above: Performed By: #### L 100.0100, L500.2500 ####[facility] [address] [place], [address] Sodium [Moles/Vol] 138 mmol/L Normal 133-145 [facility] Comment on above: Performed By: #### L 100.0100, L500.2500 ####[facility] [address] [place], [address] Urea nitrogen [Mass/Vol] 13 mg/dL Normal 4-19 [facility] Comment on above: Performed By: #### L 100.0100, L500.2500 ####[facility] [address] [place], [address] CBC W/Diff, Automatedon 05-0 -2024 Absolute Lymph 1.58 X10 3/uL Normal 0.83-4.51 [facility] Comment on above: Performed By: #### L 100.0100, L500.2500 ####[facility] [address] [place], [address] Absolute Neut 4.4 X10 3/uL Normal 2.0-7.7 [facility] Comment on above: Performed By: #### L 100.0100, L500.2500 ####[facility] [address] [place], [address] Basophils/100 WBC (Bld) 0.3 % Normal 0-1 [facility] Comment on above: Performed By: #### L 100.0100, L500.2500 ####[facility] [address] [place], [address] Eosinophils/100 WBC (Bld) 2.9 % Normal 0-5 [facility] Comment on above: Performed By: #### L 100.0100, L500.2500 ####[facility] [address] [place], [address] Erythrocyte distribution width (RBC) [Ratio] 15.9 % High 11.6-14.6 [facility] Comment on above: Performed By: #### L 100.0100, L500.2500 ####[facility] [address] [place], [address] Hematocrit (Bld) [Volume fraction] 32.1 % Low 40-54 [facility] Comment on above: Performed By: #### L 100.0100, L500.2500 ####[facility] [address] [place], [address] Hemoglobin (Bld) [Mass/Vol] 10.3 g/dL Low 13.0-16.5 [facility] Comment on above: Performed By: #### L 100.0100, L500.2500 ####[facility] [address] [place], [address] IG% 0.300 Normal 0.0-0.9 [facility] Comment on above: Result Comment: IG% - Immature Granulocytes (promyelocytes, myelocytes andmetamyelocytes) > 1% indicates that a LEFT SHIFT is Present. Performed By: #### L 100.0100, L500.2500 ####[facility] [address] [place], [address] Lymphocytes/100 WBC (Bld) 23.0 % Normal 19-41 [facility] Comment on above: Performed By: #### L 100.0100, L500.2500 ####[facility] [address] [place], [address] MCH (RBC) [Entitic mass] 26.1 pg Low 27.0-32.0 [facility] Comment on above: Performed By: #### L 100.0100, L500.2500 ####[facility] [address] [place], [address] MCHC (RBC) [Mass/Vol] 32.1 g/dL Normal 32-36 [facility] Comment on above: Performed By: #### L 100.0100, L500.2500 ####[facility] [address] [place], [address] MCV (RBC) [Entitic vol] 81.3 fL Normal 80-94 [facility] Comment on above: Performed By: #### L 100.0100, L500.2500 ####[facility] [address] [place], [address] Monocytes/100 WBC (Bld) 9.6 % Normal 0-10 [facility] Comment on above: Performed By: #### L 100.0100, L500.2500 ####[facility] [address] [place], [address] Neutrophils/100 WBC (Bld) 63.9 % Normal 47-70 [facility] Comment on above: Performed By: #### L 100.0100, L500.2500 ####[facility] [address] [place], [address] Nucleated RBC (Bld) [#/Vol] 0 10*3/uL Normal 0-5 [facility] Comment on above: Performed By: #### L 100.0100, L500.2500 ####[facility] [address] [place], [address] Platelet mean volume (Bld) [Entitic vol] 9.2 fL Normal 6.2-12.0 [facility] Comment on above: Performed By: #### L 100.0100, L500.2500 ####[facility] [address] [place], [address] Platelets (Bld) [#/Vol] 310 10*3/uL Normal 150-450 [facility] Comment on above: Performed By: #### L 100.0100, L500.2500 ####[facility] [address] [place], [address] RBC (Bld) [#/Vol] 3.95 10*6/uL Low 4.6-6.2 [facility] Comment on above: Performed By: #### L 100.0100, L500.2500 ####[facility] [address] [place], [address] RDW SD 47.6 fl High 35.1-43.9 [facility] Comment on above: Performed By: #### L 100.0100, L500.2500 ####[facility] [address] [place], [address] WBC (Bld) [#/Vol] 6.9 10*3/uL Normal 4.4-11.0 [facility] Comment on above: Performed By: #### L 100.0100, L500.2500 ####[facility] [address] [place], [address] Consultation - Surgicalon Consultation - Surgical Normal [facility] MR/CON.PCM.GIon 06-11-2024 MR/CON.PCM.GI Normal [facility] BRCon 06-10-2024 RC Normal [facility] Comment on above: Result Comment: [id number] OP RC TRANSFUSED 06/10/24 [id number] OP RC TRANSFUSED 06/10/24 1640 Performed By: #### B RC ####[facility] [address] [place], [address] Basic Metabolic Profile (BMP )on 06-10-2024 BUN/CRE 17.2 RATIO Normal 10-20 [facility] Comment on above: Performed By: #### L 100.0100, L500.2500, L300.3900, L300.4310 ####[facility] [address] [place], [address] Calcium [Mass/Vol] 9.0 mg/dL Normal 7.6-11.0 [facility] Comment on above: Performed By: #### L 100.0100, L500.2500, L300.3900, L300.4310 ####[facility] [address] [place], [address] Chloride [Moles/Vol] 107 mmol/L Normal 98-108 [facility] Comment on above: Performed By: #### L 100.0100, L500.2500, L300.3900, L300.4310 ####[facility] [address] [place], [address] CO2 [Moles/Vol] 21.5 mmol/L Normal 21.0-32.0 [facility] Comment on above: Performed By: #### L 100.0100, L500.2500, L300.3900, L300.4310 ####[facility] [address] [place], [address] Creatinine [Mass/Vol] 0.97 mg/dL Normal 0.70-1.20 [facility] Comment on above: Performed By: #### L 100.0100, L500.2500, L300.3900, L300.4310 ####[facility] [address] [place], [address] ECRCL 58.93 ml/min Normal 50-250 [facility] Comment on above: Performed By: #### L 100.0100, L500.2500, L300.3900, L300.4310 ####[facility] [address] [place], [address] GAP 11 Normal 5-15 [facility] Comment on above: Performed By: #### L 100.0100, L500.2500, L300.3900, L300.4310 ####[facility] [address] [place], [address] GFR/1.73 sq M.predicted among non-blacks MDRD (S/P/Bld) [Vol rate/Area] 84 mL/min/{1.73_m2} Normal >60 [facility] Comment on above: Result Comment: mL/m in/1.73m2 CKD-EPI Creatinine Equation (2020) Performed By: #### L 100.0100, L500.2500, L300.3900, L300.4310 ####[facility] [address] [place], [address] Glucose [Mass/Vol] 95 mg/dL Normal 70-99 [facility] Comment on above: Performed By: #### L 100.0100, L500.2500, L300.3900, L300.4310 ####[facility] [address] [place], [address] Potassium [Moles/Vol] 3.9 mmol/L Normal 3.3-5.1 [facility] Comment on above: Performed By: #### L 100.0100, L500.2500, L300.3900, L300.4310 ####[facility] [address] [place], [address] Sodium [Moles/Vol] 139 mmol/L Normal 133-145 [facility] Comment on above: Performed By: #### L 100.0100, L500.2500, L300.3900, L300.4310 ####[facility] [address] [place], [address] Urea nitrogen [Mass/Vol] 17 mg/dL Normal 4-19 [facility] Comment on above: Performed By: #### L 100.0100, L500.2500, L300.3900, L300.4310 ####[facility] [address] [place], [address] CBC W/Diff, Automatedon -3 0-2024 Absolute Lymph 1.35 X10 3/uL Normal 0.83-4.51 [facility] Comment on above: Performed By: #### L 100.0100, L500.2500, L300.3900, L300.4310 ####[facility] [address] [place], [address] Absolute Neut 5.0 X10 3/uL Normal 2.0-7.7 [facility] Comment on above: Performed By: #### L 100.0100, L500.2500, L300.3900, L300.4310 ####[facility] [address] [place], [address] Basophils/100 WBC (Bld) 0.3 % Normal 0-1 [facility] Comment on above: Performed By: #### L 100.0100, L500.2500, L300.3900, L300.4310 ####[facility] [address] [place], [address] Eosinophils/100 WBC (Bld) 3.1 % Normal 0-5 [facility] Comment on above: Performed By: #### L 100.0100, L500.2500, L300.3900, L300.4310 ####[facility] [address] [place], [address] Erythrocyte distribution width (RBC) [Ratio] 17.0 % High 11.6-14.6 [facility] Comment on above: Performed By: #### L 100.0100, L500.2500, L300.3900, L300.4310 ####[facility] [address] [place], [address] Hematocrit (Bld) [Volume fraction] 21.5 % Low 40-54 [facility] Comment on above: Performed By: #### L 100.0100, L500.2500, L300.3900, L300.4310 ####[facility] [address] [place], [address] Hemoglobin (Bld) [Mass/Vol] 6.7 g/dL Low 13.0-16.5 [facility] Comment on above: Performed By: #### L 100.0100, L500.2500, L300.3900, L300.4310 ####[facility] [address] [place], [address] IG% 0.300 Normal 0.0-0.9 [facility] Comment on above: Result Comment: IG% - Immature Granulocytes (promyelocytes, myelocytes andmetamyelocytes) > 1% indicates that a LEFT SHIFT is Present. Performed By: #### L 100.0100, L500.2500, L300.3900, L300.4310 ####[facility] [address] [place], [address] Lymphocytes/100 WBC (Bld) 18.8 % Low 19-41 [facility] Comment on above: Performed By: #### L 100.0100, L500.2500, L300.3900, L300.4310 ####[facility] [address] [place], [address] MCH (RBC) [Entitic mass] 25.2 pg Low 27.0-32.0 [facility] Comment on above: Performed By: #### L 100.0100, L500.2500, L300.3900, L300.4310 ####[facility] [address] [place], [address] MCHC (RBC) [Mass/Vol] 31.2 g/dL Low 32-36 [facility] Comment on above: Performed By: #### L 100.0100, L500.2500, L300.3900, L300.4310 ####[facility] [address] [place], [address] MCV (RBC) [Entitic vol] 80.8 fL Normal 80-94 [facility] Comment on above: Performed By: #### L 100.0100, L500.2500, L300.3900, L300.4310 ####[facility] [address] [place], [address] Monocytes/100 WBC (Bld) 7.5 % Normal 0-10 [facility] Comment on above: Performed By: #### L 100.0100, L500.2500, L300.3900, L300.4310 ####[facility] [address] [place], [address] Neutrophils/100 WBC (Bld) 70.0 % Normal 47-70 [facility] Comment on above: Performed By: #### L 100.0100, L500.2500, L300.3900, L300.4310 ####[facility] [address] [place], [address] Nucleated RBC (Bld) [#/Vol] 0 10*3/uL Normal 0-5 [facility] Comment on above: Performed By: #### L 100.0100, L500.2500, L300.3900, L300.4310 ####[facility] [address] [place], [address] Platelet mean volume (Bld) [Entitic vol] 9.7 fL Normal 6.2-12.0 [facility] Comment on above: Performed By: #### L 100.0100, L500.2500, L300.3900, L300.4310 ####[facility] [address] [place], [address] Platelets (Bld) [#/Vol] 335 10*3/uL Normal 150-450 [facility] Comment on above: Performed By: #### L 100.0100, L500.2500, L300.3900, L300.4310 ####[facility] [address] [place], [address] RBC (Bld) [#/Vol] 2.66 10*6/uL Low 4.6-6.2 [facility] Comment on above: Performed By: #### L 100.0100, L500.2500, L300.3900, L300.4310 ####[facility] [address] [place], [address] RDW SD 50.4 fl High 35.1-43.9 [facility] Comment on above: Performed By: #### L 100.0100, L500.2500, L300.3900, L300.4310 ####[facility] [address] [place], [address] WBC (Bld) [#/Vol] 7.2 10*3/uL Normal 4.4-11.0 [facility] Comment on above: Performed By: #### L 100.0100, L500.2500, L300.3900, L300.4310 ####[facility] [address] [place], [address] Emergency Department Summary on 06-10-2024 Emergency Department Summary Normal [facility] Ferritinon 06-10-2024 Ferritin [Mass/Vol] 10 ng/mL Low 37-417 [facility] Comment on above: Performed By: #### L 503.6550, L503.6030 ####[facility] [address] [place], [address] H AND P Exam - Hospitaliston 06-10-2024 H&P Exam - Hospitalist Normal [facility] HH, Hemoglobin AND Hematocri ton 06-10-2024 Hematocrit (Bld) [Volume fraction] 22.7 % Low 40-54 [facility] Comment on above: Performed By: #### L 100.0600 ####[facility] [address] [place], [address] Hemoglobin (Bld) [Mass/Vol] 7.0 g/dL Low 13.0-16.5 [facility] Comment on above: Performed By: #### L 100.0600 ####[facility] [address] [place], [address] HCT Normal 40-54 [facility] Comment on above: Result Comment: Cha gagnon via OM: Ordered Performed By: #### L 100.0600 ####[facility] [address] [place], [address] HGB Normal 13.0-16.5 [facility] Comment on above: Result Comment: Cha gagnon via OM: Ordered Performed By: #### L 100.0600 ####[facility] [address] [place], [address] Iron+Iron Binding Capacityon 06-10-2024 Iron [Mass/Vol] 12 ug/dL Low 65-175 [facility] Comment on above: Performed By: #### L 503.6550, L503.6030 ####[facility] [address] [place], [address] IRON SATURATION 3.0 Low 9-55 [facility] Comment on above: Performed By: #### L 503.6550, L503.6030 ####[facility] [address] [place], [address] TIBC 361 ug/dL Normal 250-450 [facility] Comment on above: Performed By: #### L 503.6550, L503.6030 ####[facility] [address] [place], [address] UIBC 349 ug/dL Normal 228-428 [facility] Comment on above: Performed By: #### L 503.6550, L503.6030 ####[facility] [address] [place], [address] Lower Ext Art Exam w/o Exerc nick 06-10-2024 Lower Ext Art Exam w/o Exercis Normal [facility] Partial Thromboplast Timeon 06-10-2024 aPTT Coag (Bld) [Time] 32.0 s Normal 24.1-36.2 [facility] Comment on above: Performed By: #### L 100.0100, L500.2500, L300.3900, L300.4310 ####[facility] [address] [place], [address] Prothrombin Time w/INRon INR Coag (PPP) [Relative time] 1.0 {INR} Normal [facility] Comment on above: Performed By: #### L 100.0100, L500.2500, L300.3900, L300.4310 ####[facility] [address] [place], [address] PT Coag (PPP) [Time] 13.1 s Normal 11.7-14.9 [facility] Comment on above: Performed By: #### L 100.0100, L500.2500, L300.3900, L300.4310 ####[facility] [address] [place], [address] Stool Occult Blood iFOBon STOB Normal [facility] Comment on above: Performed By: #### M 100.7904 ####[facility] [address] [place], [place], [id number] Type AND Screenon 06-10-2024 Ab SCREEN GEL Negative Normal [facility] Comment on above: Order Comment: A Performed By: #### B TS ####[facility] [address] [place], [address] MR/BMS.BVSon 06-02-2024 MR/BMS.BVS Normal [facility] 6 Minute Walk Teston 6 Minute Walk Test Normal [facility] CTA Abd w/Runoff W/WO Contra ston 05-18-2024 CTA Abd w/Runoff W/WO Contrast Normal [facility] HIP, UNI W/ Pelvis 2-3 Views on 03-27-2024 HIP, UNI W/ Pelvis 2-3 Views Normal [facility] Carotid Duplex Ultrasoundon 03-25-2024 Carotid Duplex Ultrasound Normal [facility] Lower Ext Art Exam w/ Exerci dhaval 03-25-2024 Lower Ext Art Exam w/ Exercise Normal [facility] MR/BMS.BVSon 03-25-2024 MR/BMS.BVS Normal [facility] MR/BMS.BVSon 02-28-2024 MR/BMS.BVS Normal [facility] CBC W/Diff, Automatedon Absolute Lymph 1.39 X10 3/uL Normal 0.83-4.51 [facility] Comment on above: Performed By: #### L 503.6550, L500.4100, L500.4050, L501.9910, L506.1000, L100.0100, L503.6150 ####[facility] [address] [place], [address] Absolute Neut 4.9 X10 3/uL Normal 2.0-7.7 [facility] Comment on above: Performed By: #### L 503.6550, L500.4100, L500.4050, L501.9910, L506.1000, L100.0100, L503.6150 ####[facility] [address] [place], [address] Basophils/100 WBC (Bld) 0.6 % Normal 0-1 [facility] Comment on above: Performed By: #### L 503.6550, L500.4100, L500.4050, L501.9910, L506.1000, L100.0100, L503.6150 ####[facility] [address] [place], [address] Eosinophils/100 WBC (Bld) 3.3 % Normal 0-5 [facility] Comment on above: Performed By: #### L 503.6550, L500.4100, L500.4050, L501.9910, L506.1000, L100.0100, L503.6150 ####[facility] [address] [place], [address] Erythrocyte distribution width (RBC) [Ratio] 14.0 % Normal 11.6-14.6 [facility] Comment on above: Performed By: #### L 503.6550, L500.4100, L500.4050, L501.9910, L506.1000, L100.0100, L503.6150 ####[facility] [address] [place], [address] Hematocrit (Bld) [Volume fraction] 36.7 % Low 40-54 [facility] Comment on above: Performed By: #### L 503.6550, L500.4100, L500.4050, L501.9910, L506.1000, L100.0100, L503.6150 ####[facility] [address] [place], [address] Hemoglobin (Bld) [Mass/Vol] 11.8 g/dL Low 13.0-16.5 [facility] Comment on above: Performed By: #### L 503.6550, L500.4100, L500.4050, L501.9910, L506.1000, L100.0100, L503.6150 ####[facility] [address] [place], [address] IG% 0.400 Normal 0.0-0.9 [facility] Comment on above: Result Comment: IG% - Immature Granulocytes (promyelocytes, myelocytes andmetamyelocytes) > 1% indicates that a LEFT SHIFT is Present. Performed By: #### L 503.6550, L500.4100, L500.4050, L501.9910, L506.1000, L100.0100, L503.6150 ####[facility] [address] [place], [address] Lymphocytes/100 WBC (Bld) 20.1 % Normal 19-41 [facility] Comment on above: Performed By: #### L 503.6550, L500.4100, L500.4050, L501.9910, L506.1000, L100.0100, L503.6150 ####[facility] [address] [place], [address] MCH (RBC) [Entitic mass] 31.6 pg Normal 27.0-32.0 [facility] Comment on above: Performed By: #### L 503.6550, L500.4100, L500.4050, L501.9910, L506.1000, L100.0100, L503.6150 ####[facility] [address] [place], [address] MCHC (RBC) [Mass/Vol] 32.2 g/dL Normal 32-36 [facility] Comment on above: Performed By: #### L 503.6550, L500.4100, L500.4050, L501.9910, L506.1000, L100.0100, L503.6150 ####[facility] [address] [place], [address] MCV (RBC) [Entitic vol] 98.4 fL High 80-94 [facility] Comment on above: Performed By: #### L 503.6550, L500.4100, L500.4050, L501.9910, L506.1000, L100.0100, L503.6150 ####[facility] [address] [place], [address] Monocytes/100 WBC (Bld) 3.9 % Normal 0-10 [facility] Comment on above: Performed By: #### L 503.6550, L500.4100, L500.4050, L501.9910, L506.1000, L100.0100, L503.6150 ####[facility] [address] [place], [address] Neutrophils/100 WBC (Bld) 71.7 % High 47-70 [facility] Comment on above: Performed By: #### L 503.6550, L500.4100, L500.4050, L501.9910, L506.1000, L100.0100, L503.6150 ####[facility] [address] [place], [address] Nucleated RBC (Bld) [#/Vol] 0 10*3/uL Normal 0-5 [facility] Comment on above: Performed By: #### L 503.6550, L500.4100, L500.4050, L501.9910, L506.1000, L100.0100, L503.6150 ####[facility] [address] [place], [address] Platelet mean volume (Bld) [Entitic vol] 9.8 fL Normal 6.2-12.0 [facility] Comment on above: Performed By: #### L 503.6550, L500.4100, L500.4050, L501.9910, L506.1000, L100.0100, L503.6150 ####[facility] [address] [place], [address] Platelets (Bld) [#/Vol] 298 10*3/uL Normal 150-450 [facility] Comment on above: Performed By: #### L 503.6550, L500.4100, L500.4050, L501.9910, L506.1000, L100.0100, L503.6150 ####[facility] [address] [place], [address] RBC (Bld) [#/Vol] 3.73 10*6/uL Low 4.6-6.2 [facility] Comment on above: Performed By: #### L 503.6550, L500.4100, L500.4050, L501.9910, L506.1000, L100.0100, L503.6150 ####[facility] [address] [place], [address] RDW SD 50.9 fl High 35.1-43.9 [facility] Comment on above: Performed By: #### L 503.6550, L500.4100, L500.4050, L501.9910, L506.1000, L100.0100, L503.6150 ####[facility] [address] [place], [address] WBC (Bld) [#/Vol] 6.9 10*3/uL Normal 4.4-11.0 [facility] Comment on above: Performed By: #### L 503.6550, L500.4100, L500.4050, L501.9910, L506.1000, L100.0100, L503.6150 ####[facility] [address] [place], [address] Comprehensive Metabolic Prof [facility] 01-14-2024 Albumin [Mass/Vol] 3.7 g/dL Normal 3.2-5.0 [facility] Comment on above: Performed By: #### L 503.6550, L500.4100, L500.4050, L501.9910, L506.1000, L100.0100, L503.6150 ####[facility] [address] [place], [address] Albumin/Globulin [Mass ratio] 1.1 {ratio} Normal 0.9-2.4 [facility] Comment on above: Performed By: #### L 503.6550, L500.4100, L500.4050, L501.9910, L506.1000, L100.0100, L503.6150 ####[facility] [address] [place], [address] ALK P 70 U/L Normal 45-117 [facility] Comment on above: Performed By: #### L 503.6550, L500.4100, L500.4050, L501.9910, L506.1000, L100.0100, L503.6150 ####[facility] [address] [place], [address] ALT [Catalytic activity/Vol] 22 U/L Normal 16-61 [facility] Comment on above: Performed By: #### L 503.6550, L500.4100, L500.4050, L501.9910, L506.1000, L100.0100, L503.6150 ####[facility] [address] [place], [address] AST [Catalytic activity/Vol] 23 U/L Normal 15-37 [facility] Comment on above: Performed By: #### L 503.6550, L500.4100, L500.4050, L501.9910, L506.1000, L100.0100, L503.6150 ####[facility] [address] [place], [address] Bilirubin [Mass/Vol] 0.30 mg/dL Normal 0.20-1.00 [facility] Comment on above: Result Comment: For patients on eltrombopag therapy, use of Dimension [place] TBIL is not recommended. Performed By: #### L 503.6550, L500.4100, L500.4050, L501.9910, L506.1000, L100.0100, L503.6150 ####[facility] [address] [place], [address] BUN/CRE 14.7 RATIO Normal 10-20 [facility] Comment on above: Performed By: #### L 503.6550, L500.4100, L500.4050, L501.9910, L506.1000, L100.0100, L503.6150 ####[facility] [address] [place], [address] CA,Total 9.3 mg/dL Normal 8.5-10.1 [facility] Comment on above: Performed By: #### L 503.6550, L500.4100, L500.4050, L501.9910, L506.1000, L100.0100, L503.6150 ####[facility] [address] [place], [address] Chloride [Moles/Vol] 106 mmol/L Normal 98-107 [facility] Comment on above: Performed By: #### L 503.6550, L500.4100, L500.4050, L501.9910, L506.1000, L100.0100, L503.6150 ####[facility] [address] [place], [address] CO2 [Moles/Vol] 26.0 mmol/L Normal 21.0-32.0 [facility] Comment on above: Performed By: #### L 503.6550, L500.4100, L500.4050, L501.9910, L506.1000, L100.0100, L503.6150 ####[facility] [address] [place], [place], [phone](203) Creatinine [Mass/Vol] 1.02 mg/dL Normal 0.70-1.30 [facility] Comment on above: Result Comment: The validity of the calculated GFR GFRAA in patients over70 years has not been determined. Clinical correlation isessential. Performed By: #### L 503.6550, L500.4100, L500.4050, L501.9910, L506.1000, L100.0100, L503.6150 ####[facility] [address] [place], [place], [phone]) EST GFR - AA 93 mL/min Normal >60 [facility] Comment on above: Result Comment: Afri can [place] GFR Calc Performed By: #### L 503.6550, L500.4100, L500.4050, L501.9910, L506.1000, L100.0100, L503.6150 ####[facility] [address] [place], [place], [phone] GAP 6 Normal 5-15 [facility] Comment on above: Performed By: #### L 503.6550, L500.4100, L500.4050, L501.9910, L506.1000, L100.0100, L503.6150 ####[facility] [address] [place], [place], [phone] GFR/1.73 sq M.predicted among non-blacks MDRD (S/P/Bld) [Vol rate/Area] 77 mL/min/{1.73_m2} Normal >60 [facility] Comment on above: Result Comment: Non- GFR Calc Performed By: #### L 503.6550, L500.4100, L500.4050, L501.9910, L506.1000, L100.0100, L503.6150 ####[facility] [address] [place], [address] Globulin (S) [Mass/Vol] 3.4 g/dL Normal 2.2-4.2 [facility] Comment on above: Performed By: #### L 503.6550, L500.4100, L500.4050, L501.9910, L506.1000, L100.0100, L503.6150 ####[facility] [address] [place], [address] Glucose [Mass/Vol] 94 mg/dL Normal 74-106 [facility] Comment on above: Performed By: #### L 503.6550, L500.4100, L500.4050, L501.9910, L506.1000, L100.0100, L503.6150 ####[facility] [address] [place], [address] Potassium [Moles/Vol] 4.3 mmol/L Normal 3.5-5.1 [facility] Comment on above: Performed By: #### L 503.6550, L500.4100, L500.4050, L501.9910, L506.1000, L100.0100, L503.6150 ####[facility] [address] [place], [address] Sodium [Moles/Vol] 139 mmol/L Normal 136-145 [facility] Comment on above: Performed By: #### L 503.6550, L500.4100, L500.4050, L501.9910, L506.1000, L100.0100, L503.6150 ####[facility] [address] [place], [address] T PROT 7.1 g/dL Normal 6.4-8.2 [facility] Comment on above: Performed By: #### L 503.6550, L500.4100, L500.4050, L501.9910, L506.1000, L100.0100, L503.6150 ####[facility] [address] [place], [place], [phone] Urea nitrogen [Mass/Vol] 15 mg/dL Normal 7-18 [facility] Comment on above: Performed By: #### L 503.6550, L500.4100, L500.4050, L501.9910, L506.1000, L100.0100, L503.6150 ####[facility] [address] [place], [address] Ferritinon 01-14-2024 Ferritin [Mass/Vol] 30 ng/mL Normal 26-388 [facility] Comment on above: Performed By: #### L 503.6550, L500.4100, L500.4050, L501.9910, L506.1000, L100.0100, L503.6150 ####[facility] [address] [place], [place], [phone] Ironon 01-14-2024 Iron [Mass/Vol] 85 ug/dL Normal 65-175 [facility] Comment on above: Performed By: #### L 503.6550, L500.4100, L500.4050, L501.9910, L506.1000, L100.0100, L503.6150 ####[facility] [address] [place], [place], [phone] Lipid Profileon 01-14-2024 Cholesterol [Mass/Vol] 137 mg/dL Normal 200 [facility] Comment on above: Result Comment: <200 mg/dL Desirable 200-240 mg/dL Borderline >240 mg/dL High Risk Performed By: #### L 503.6550, L500.4100, L500.4050, L501.9910, L506.1000, L100.0100, L503.6150 ####[facility] [address] [place], [place], [phone] Cholesterol in HDL [Mass/Vol] 57 mg/dL Normal [facility] Comment on above: Result Comment: The drugs N-Acetylcysteine and Metamizole may falselydepress this assay. Reference Range HDL <40 mg/dL Low HDL Cholesterol HDL >or= 60 mg/dL High HDL Cholesterol Performed By: #### L 503.6550, L500.4100, L500.4050, L501.9910, L506.1000, L100.0100, L503.6150 ####[facility] [address] [place], [address] Cholesterol in LDL [Mass/Vol] 69 mg/dL Normal 0-130 [facility] Comment on above: Performed By: #### L 503.6550, L500.4100, L500.4050, L501.9910, L506.1000, L100.0100, L503.6150 ####[facility] [address] [place], [place], [phone] Cholesterol in VLDL [Mass/Vol] 11 mg/dL Normal 5-40 [facility] Comment on above: Performed By: #### L 503.6550, L500.4100, L500.4050, L501.9910, L506.1000, L100.0100, L503.6150 ####[facility] [address] [place], [place], [phone] Triglyceride [Mass/Vol] 55 mg/dL Normal [facility] Comment on above: Result Comment: The drugs N-Acetylcysteine and Metamizole may falselydepress this assay.Serum Triglycerides Reference Interval Normal <150 mg/dL Borderline high 150 - 199 mg/dL High 200 - 499 mg/dL Very High > or = 500 mg/dL Performed By: #### L 503.6550, L500.4100, L500.4050, L501.9910, L506.1000, L100.0100, L503.6150 ####[facility] [address] [place], [place], [phone]) PSA,Total - Annual Screenon 01-14-2024 PSA,TOT SCREEN 3.62 ng/mL Normal 0.00-4.00 [facility] Comment on above: Result Comment: This test was performed using the TPSA assay method for [employer] avtal24 chemistry system. Values obtained with differentassay methods cannot be used interchangably.When changing PSA assays in the course of monitoring apatient, additional sequential testing should be carriedout to confirm baseline values. Performed By: #### L 503.6550, L500.4100, L500.4050, L501.9910, L506.1000, L100.0100, L503.6150 ####[facility] [address] [place], [place], [address] Vitamin D,25 Hydroxyon 01-13 Vitamin D 25-OH 38.0 ng/mL Normal [facility] Comment on above: Result Comment: Kiah min D 25(OH) Status Range Deficiency <20 ng/mL (50nmol/L) Insufficiency 20 - 30 ng/mL (50 - 75 nmol/L) Sufficiency 30 - 100 ng/mL (75 - 250 nmol/L) Toxicity >100 ng/mL (>250 nmol/L) Performed By: #### L 503.6550, L500.4100, L500.4050, L501.9910, L506.1000, L100.0100, L503.6150 ####[facility] [address] [place], [place], [address] Pulmonary Visit Reporton Pulmonary Visit Report Normal [facility] PT D/C Summary (1)on 024 PT D/C Summary (1) Normal [facility] Encounters Encounter Date Encounter Type Care Provider Facility Start: 07-24-2024 [facility] Facility:[facility] Start: 07-23-2024 End: 07-23-2024 [facility] Facility:[facility] Start: 07-21-2024 End: 07-21-2024 ambulatory [facility] Start: 07-09-2024 End: 07-09-2024 ambulatory Claribel Bernabe Facility:[facility] Start: 07-07-2024 End: 07-09-2024 Evaluation and management of inpatient Claribel Bernabe Facility:[facility] Start: 07-07-2024 ambulatory Claribel Bernabe [facility] Start: 07-07-2024 ambulatory Claribel Bernabe [facility] Start: 07-07-2024 End: 07-07-2024 ambulatory Claribel Bernabe Facility:[facility] Start: 06-24-2024 ambulatory Aguilar Olseney Facility:[facility] Start: 06-24-2024 End: 06-25-2024 ambulatory Claribel Bernabe Facility:[facility] Start: 06-19-2024 End: 06-19-2024 ambulatory Loretta Lu Facility:[facility] Start: 06-13-2024 ambulatory Sahil Friend Facility :[facility] Start: 06-12-2024 ambulatory Sahil Friend Facility :[facility] Start: 06-12-2024 End: 06-12-2024 ambulatory Lemueljordinmariano Cobb Facility:[facility] Start: 06-10-2024 ambulatory Claribel Bernabe [facility] Start: 06-10-2024 End: 06-13-2024 Evaluation and management of inpatient Claribel Bernabe Facility:[facility] Start: 06-10-2024 ambulatory Claribel Bernabe Facility:[facility] Start: 06-02-2024 End: 06-02-2024 ambulatory Claribel Bernabe Facility:[facility] Start: 05-20-2024 ambulatory Claribel Bernabe Facility:[facility] Start: 05-19-2024 End: 05-19-2024 ambulatory Claribel Bernabe Facility:[facility] Start: 05-18-2024 ambulatory Claribel Bernabe Facility:[facility] Start: 05-18-2024 End: 05-18-2024 ambulatory Claribel Bernabe Facility:[facility] Start: 05-12-2024 End: 05-12-2024 ambulatory Claribel Bernabe Facility:[facility] Start: 03-27-2024 End: 03-27-2024 ambulatory Claribel Bernabe Facility:[facility] Start: 03-25-2024 End: 03-25-2024 ambulatory Claribel Bernabe Facility:[facility] Start: 03-25-2024 ambulatory Claribel Bernabe Facility:[facility] Start: 03-25-2024 End: 03-25-2024 ambulatory Claribel Bernabe Facility:[facility] Start: 02-28-2024 End: 02-28-2024 ambulatory Claribel Bernabe Facility:[facility] Start: 01-13-2024 End: 01-14-2024 ambulatory Claribel Bernabe Facility:[facility] Start: 08-20-2023 End: 08-20-2023 ambulatory [facility] Facility:[facility] Payers Date Payer Category Payer Private Health Insurance [id number] 2024 Unknown [id number] 2023 Self-pay 2021 Private Health Insurance [id number] 2020 Unknown [id number] Unknown [id number] 2.16.8 40.1.609840.3.579.2.462 Unknown [id number] 2.16.8 40.1.196395.3.579.2.462 Unknown [id number] 2.16.8 40.1.686221.3.579.2.462 Unknown [id number] 2.16.8 40.1.828650.3.579.2.462 Unknown [id number] 2.16.8 40.1.975382.3.579.2.462 Unknown [id number] 2.16.8 40.1.792211.3.579.2.462 Unknown [id number] 2.16.8 40.1.741995.3.579.2.462 Unknown [id number] 2.16.8 40.1.407422.3.579.2.462 Unknown [id number] 2.16.8 40.1.687929.3.579.2.462 Unknown [id number] 2.16.8 40.1.942342.3.579.2.462 Unknown [id number] 2.16.8 40.1.506708.3.579.2.462 Unknown [id number] 2.16.8 40.1.219000.3.579.2.462 Unknown [id number] 2.16.8 40.1.407617.3.579.2.462 Unknown [id number] 2.16.8 40.1.773449.3.579.2.462 Unknown [id number] 2.16.8 40.1.938287.3.579.2.462 Unknown [id number] 2.16.8 40.1.443792.3.579.2.462 Unknown [id number] 2.16.8 40.1.420935.3.579.2.462 Unknown [id number] 2.16.8 40.1.460053.3.579.2.462 Unknown [id number] 2.16.8 40.1.318757.3.579.2.462 Unknown [id number] 2.16.8 40.1.038312.3.579.2.462 Unknown [id number] 2.16.8 40.1.139081.3.579.2.462 Unknown [id number] 2.16.8 40.1.506271.3.579.2.462 Unknown [id number] 2.16.8 40.1.925656.3.579.2.462 Unknown [id number] 2.16.8 40.1.995629.3.579.2.462 Unknown [id number] 2.16.8 40.1.118512.3.579.2.462 Unknown [id number] 2.16.8 40.1.219285.3.579.2.462 Unknown [id number] 2.16.8 40.1.027705.3.579.2.462 Unknown [id number] 2.16.8 40.1.247456.3.579.2.462 Unknown [id number] 2.16.8 40.1.305429.3.579.2.462 Unknown [id number] 2.16.8 40.1.652099.3.579.2.462 Unknown [id number] 2.16.8 40.1.027922.3.579.2.462 Unknown [id number] 2.16.8 40.1.333490.3.579.2.462 Unknown [id number] 2.16.8 40.1.747930.3.579.2.462 Unknown [id number] 2.16.8 40.1.640402.3.579.2.462 Unknown [id number] 2.16.8 40.1.229694.3.579.2.462 Unknown [id number] 2.16.8 40.1.318146.3.579.2.462 Unknown [id number] 2.16.8 40.1.806571.3.579.2.462 Unknown [id number] 2.16.8 40.1.491405.3.579.2.462 Unknown [id number] 2.16.8 40.1.357242.3.579.2.462 Unknown [id number] 2.16.8 40.1.151511.3.579.2.462 Unknown [id number] 2.16.8 40.1.265034.3.579.2.462 Unknown [id number] 2.16.8 40.1.184649.3.579.2.462 Unknown [id number] 2.16.8 40.1.722902.3.579.2.462 Unknown [id number] 2.16.8 40.1.156243.3.579.2.462 Unknown [id number] 2.16.8 40.1.215376.3.579.2.462 Discharge summary note 07-09-2024 Note Date & Type Note Facility 07-09-2024 Note [facility] Discharge summary note 06-25-2024 Note Date & Type Note Facility 06-25-2024 Note [facility] Discharge summary note 06-13-2024 Note Date & Type Note Facility 06-13-2024 Note [facility] Summary Purpose Family History No Family History Records Found Advance Directives No Advanced Directives Records Found Additional Source Comments (unrecognized sect ion and content) No Status Records Found INFORMATION SOURCE (unrecogn ized section and content) DATE CREATED AUTHOR 07/24/2024 [facility] FOR RECORDS PERTAINING TO PATIENTS WHO ARE [...] BE BASED ON THE PRIMARY CLINICAL RECORDS. [facility] [employer] [facility]. provides no warranty or guarantee of the accuracy or completeness of information in this document.
== END | disposition home or self-care (01) ==
LOC: CT 18:54
PROVIDERS: PCP Nurse Practitioner Family; Referring Provider Nurse Practitioner Family; Visit Provider Nurse Practitioner Family
DX: R91.1 Solitary pulmonary nodule (principal); F17.210 Nicotine dependence, cigarettes, uncomplicated
CPT/HCPCS: 71271

== ENCOUNTER → 2024-08-17 | Outpatient (CLI) | payer MEDICARE, MEDICAID, SELFPAY | END | disposition home or self-care (01) | LOC: CVS 09:04 | PROVIDERS: PCP Nurse Practitioner Family; Referring Provider Physician Assistant; Visit Provider Physician Assistant | DX: Z48.812 Encounter for surgical aftercare following surgery on the circulatory system (principal); I73.9 Peripheral vascular disease, unspecified; Z98.890 Other specified postprocedural states | CPT/HCPCS: 93924; 93978 ==

== ENCOUNTER → 2024-10-28 | Outpatient (CLI) | payer MEDICARE, MEDICAID, SELFPAY ==
[2024-10-28 16:40] LABS: Hematocrit 22.6 % (40-54); Hemoglobin 6.8 g/dL (13.0-16.5); Immature Granulocytes Count 0.010 X10^3/uL (0.0-0.0); Mean Corp Hgb Conc 30.1 g/dL (32-36); Mean Corpuscular Volume 79.6 fL (80-94); Mean Platelet Vol. 9.1 fl (6.2-12.0); NRBC Flagged by Analyzer 0 % (0-5); Platelet Count 455 K/mm3 (150-450); RBC Distribution Width CV 19.3 % (11.6-14.6); RBC Distribution Width SD 55.8 fl (35.1-43.9); Red Blood Count 2.84 M/mm3 (4.6-6.2); White Blood Count 5.4 K/mm3 (4.4-11.0)
== END | disposition home or self-care (01) ==
LOC: LAB 15:18
PROVIDERS: PCP Nurse Practitioner Family; Referring Provider Internal Medicine Gastroenterology; Visit Provider Internal Medicine Gastroenterology
DX: D64.9 Anemia, unspecified (principal)
CPT/HCPCS: 36415; 85025

== ENCOUNTER → 2024-11-09 | Outpatient (CLI) | payer MEDICARE, MEDICAID, SELFPAY ==
[2024-11-09 14:36] LABS: Hematocrit 31.3 % (40-54); Hemoglobin 9.6 g/dL (13.0-16.5); Immature Granulocytes Count 0.050 X10^3/uL (0.0-0.0); Mean Corp Hgb Conc 30.7 g/dL (32-36); Mean Corpuscular Volume 82.2 fL (80-94); Mean Platelet Vol. 9.6 fl (6.2-12.0); NRBC Flagged by Analyzer 0 % (0-5); POSITIVE MORPHOLOGY YES; Platelet Count 348 K/mm3 (150-450); RBC Distribution Width CV 23.3 % (11.6-14.6); RBC Distribution Width SD 69.7 fl (35.1-43.9); Red Blood Count 3.81 M/mm3 (4.6-6.2); White Blood Count 11.4 K/mm3 (4.4-11.0)
[2024-11-09 14:39] LABS: Differential Indicated SCAN CRITERIA MET
[2024-11-09 15:05] LABS: Ferritin 171 ng/mL (37-417); Iron 35 ug/dL (65-175)
[2024-11-09 15:19] LABS: Anisocytosis 1+
== END | disposition home or self-care (01) ==
LOC: LAB 13:42
PROVIDERS: PCP Nurse Practitioner Family; Referring Provider Nurse Practitioner Family; Visit Provider Nurse Practitioner Family
DX: D50.9 Iron deficiency anemia, unspecified (principal)
CPT/HCPCS: 36415; 82728; 83540; 85025

== ENCOUNTER → 2024-11-25 | Outpatient (CLI) | payer MEDICARE, MEDICAID, SELFPAY ==
[2024-11-25 13:03] LABS: Hematocrit 31.8 % (40-54); Hemoglobin 9.5 g/dL (13.0-16.5); Immature Granulocytes Count 0.030 X10^3/uL (0.0-0.0); Mean Corp Hgb Conc 29.9 g/dL (32-36); Mean Corpuscular Volume 83.0 fL (80-94); Mean Platelet Vol. 9.0 fl (6.2-12.0); NRBC Flagged by Analyzer 0 % (0-5); POSITIVE MORPHOLOGY YES; Platelet Count 353 K/mm3 (150-450); RBC Distribution Width CV 21.2 % (11.6-14.6); RBC Distribution Width SD 64.8 fl (35.1-43.9); Red Blood Count 3.83 M/mm3 (4.6-6.2); White Blood Count 7.1 K/mm3 (4.4-11.0)
[2024-11-25 13:04] LABS: Differential Indicated SCAN CRITERIA MET
[2024-11-25 13:34] LABS: Anisocytosis 2+; Differential Comment SCANNED; Macrocytosis 1+; Microcytosis 1+
== END | disposition home or self-care (01) ==
LOC: LAB 12:41
PROVIDERS: PCP Nurse Practitioner Family; Referring Provider Student in an Organized Health Care Education/Training Program; Visit Provider Student in an Organized Health Care Education/Training Program
DX: D64.9 Anemia, unspecified (principal)
CPT/HCPCS: 36415; 85025

== ENCOUNTER 2024-12-09 06:06 | Day surgery (SDC) | payer MEDICARE, MEDICAID, SELFPAY ==
--- NOTE | 2024-12-08 17:05 | PAT.ANE_ITS ---
Pre-Assessment Diagnosis/Proposed Procedure Planned Operative Procedure(s): EGD Anesthesia History Anesthesia History - ethnographic materials conservator: Anesthesia History - ethnographic materials conservator Hx Hospitalization Yes: [facility] 10/202412/08/24 10:48 Any Problems With Anesthesia No 12/08/24 10:48 Cholinesterase deficiency No 12/08/24 10:48 You/Your Family Experience No 12/08/24 10:48 fever (hyperthermia) with Relationship Recent Exposure to Contagious No 07/07/24 23:50 Disease Does patient have nerve No 12/08/24 10:48 stimulator Patient instructed to have device shut off --Does patient have Pacemaker or ICD? When Was Last Pacemaker Check QUESTION #4 FULL TEXT: You/Your Family Experience fever (hyperthermia) with Anesthesia Last Oral Intake Last Oral intake: Last Oral Intake NPO since Meds taken in AM with sips of water? Meds patient instructed to take am of surgery PONV PONV - ethnographic materials conservator: PONV - ethnographic materials conservator Female Yes 12/08/24 10:48 HX of Motion Sickness No 12/08/24 10:48 HX of N/V After Surgery No 12/08/24 10:48 Non-Smoker Yes 12/08/24 10:48 Duration of Surgery greater No 12/08/24 10:48 than 60 minutes Number of Risk Factors 2 12/08/24 10:48 PONV Score Moderate Risk 12/08/24 10:48 Height & Weight Height & Weight: Anesthesia: Height & Weight Height 5 ft 10 in 07/30/24 08:21 Respiratory Assessment Respiratory Assessment - ethnographic materials conservator: Respiratory Tract Infection Hx - ethnographic materials conservator Hx Respiratory Tract Infection No 12/08/24 10:48 STOP Sleep Apnea STOP Sleep Apnea - ethnographic materials conservator: STOP Sleep Apnea - ethnographic materials conservator Hx Hypertension No 12/08/24 10:48 Hx Sleep Apnea No 12/08/24 10:48 CPAP No 06/13/24 09:30 BIPAP Do you snore loudly (louder No 12/08/24 10:48 than talking or can be heard Do you often feel tired/ No 12/08/24 10:48 fatigued/ sleepy during daytime? Has anyone observed you stop No 12/08/24 10:48 breathing during sleep? STOP Results Negative 12/08/24 10:48 QUESTION #5 FULL TEXT : Do you snore loudly (louder than talking or can be heard through closed doors)? Tobacco Use History Tobacco Use History - ethnographic materials conservator: Tobacco Use History - ethnographic materials conservator Tobacco Use Smoking Status Former smoker 12/08/24 10:48 Hx Tobacco Use Yes 12/08/24 10:48 Years Smoking Packs Smoked per Day Smoking Cessation Date was Yes - quit smoking within 15 12/08/24 10:48 within the last 15 years years Hx Smoking Cessation Date 12/08/24 10:48 Hx Smoking Cessation No 12/08/24 10:48 Counseling Hematologic Medial History Hematologic Hx - ethnographic materials conservator: Hematologic Medical Hx - student development coordinator Hx of Blood Transfusion Yes 12/08/24 10:48 Hx of Transfusion in last 3 Yes 12/08/24 10:48 Months Date of Last Transfusion (if 10/202412/08/24 10:48 within last 3 months) Ever experience any problems No 12/08/24 10:48 with transfusion(s)? Specify any problems Hx of Preganancy in last 3 N/A 12/08/24 10:48 Months Nurse Filling Out Transfusion [email or web address] 12/08/24 10:48 & Questions: Date: 12/08/24 12/08/24 10:48 Time: 10:52 12/08/24 10:48 Patient unable to answer at this time (ie. confused, unrespo /Reproduction History /Reproductive History - ethnographic materials conservator: /Reproductive Hx- ethnographic materials conservator Hx Now Gestational Age (in weeks): EDC: Hx Hx Para Hx Section SAB No 12/08/24 10:48 PFSH Medical History (Updated 12/08/24 @ 10:57 by Shane Lechuga) Marijuana use Shortness of breath on exertion Angiodysplasia of colon with hemorrhage Iron deficiency anemia due to chronic blood loss Pancreatitis Asthma DVT (deep venous thrombosis) ABLA (acute blood loss anemia) Hepatitis C Severe protein-calorie malnutrition Substance abuse Smoker Opioid dependence Polysubstance abuse Alcohol use disorder Generalized anxiety disorder Major depressive disorder, recurrent severe without psychotic features Dysthymia Hematest positive stools Emphysema lung Nicotine dependence, cigarettes, uncomplicated Iron deficiency anemia Skin cancer, basal cell PAD (peripheral artery disease) Basal cell carcinoma (BCC) Hemorrhoid GERD (gastroesophageal reflux disease) Depression Osteoarthritis Chronic back pain Home Medications Medication Instructions Recorded Last Taken Type bupropion HCl 300 mg 24 hr tablet, 300 mg PO DAILY ANX IETY 11/23/21 06/24/24 History extended release albuterol sulfate 90 mcg/actuation 2 puff inhalation Q 4H PRN PRN 05/06/23 Unknown Rx aerosol inhaler Shortness Of Breath Or Wheez ing #3 ea food supplemt, lactose-reduced 240 ml PO DAILY PRN SUP PLEMENT 06/13/23 Unknown History (Ensure oral liquid) hydroxyzine HCl 25 mg tablet 25 mg PO BID PRN anxiety 06/13/23 Unknown History aspirin 81 mg tablet,delayed 81 mg PO QDAY heart healt h 02/28/24 06/09/24 History release (Adult Low Dose Aspirin) sertraline 50 mg tablet (Zoloft) 50 mg PO QDAY mental health 02/28/24 06/24/24 History donepezil 5 mg tablet 5 mg PO QHS memory 06/10/24 06/09/24 History ipratropium 0.5 mg-albuterol 3 mg 3 ml inhalation BID SOB &/OR 06/10/24 06/24/24 History (2.5 mg base)/3 mL nebulization WHEEZING soln omeprazole 40 mg capsule,delayed 40 mg PO DAILY reflux 06/10/24 06/24/24 History release acetaminophen 500 mg tablet 1,000 mg PO Q8 PRN pain Unknown History budesonide 1 mg/2 mL suspension 1 mg (2 mL) inhalation BID #120 mL 07/13/24 Unknown Rx for nebulization ascorbate calcium (vitamin C) 500 500 mg PO QDAY 07/21 Unknown History mg tablet gabapentin 100 mg capsule 100 mg PO QD-TID PRN pain Unknown History multivitamin 1 tab PO QAM 11/13/24 Unknow n History rosuvastatin 20 mg tablet 20 mg PO QHS cholesterol Unknown History Allergy/AdvReac Type Severity Reaction Status Date / Time buspirone (From BuSpar) Allergy Mild shaking, Verified 12/08/24 10:45 restless legs sucralfate (From Carafate) Allergy Other Verified 12/08/24 10:45 venom-honey bee (bee venom Allergy Anaphylaxis Verified 12/08/24 10:45 (honey bee)) trazodone AdvReac Severe nightmares Verified 12/08/24 10:45 Family History Mother Diabetes Heart disease Hypertension Thyroid disorder Ulcer Dementia Sister Asthma Heart disease Hypertension Cancer multiple myeloma Father Dementia Surgical History (Updated 12/08/24 @ 10:57 by Shane Lechuga) History of ankle surgery History of cholecystectomy S/P peripheral artery angioplasty with stent placement History of colonoscopy (~2018) History of cataract extraction Hx of local excision of skin lesion Hx of endarterectomy History of cholecystectomy (~2002) Social History household members: friend(s) Smoking Status: Former smoker Tobacco: How many years used: 50 Electronic Cigarette Use: not used second hand exposure: No alcohol intake: former details: Sober since 2015. substance use type: other details: Fentanyl, snorted, does have prior IVDA history. Audit: Pertinent Findings Pertinent Findings EKG Perinent findings: EKG 07/09/2024. Normal sinus rhythm. Stress test pertinent findings: Stress echo 09/01/2020. Normal exercise stress echo at a high workload. Good functional aerobic capacity. Recommendation Anesthesia Recommendation Anesthesia recommendation: OPTIMIZED for anesthesia
[2024-12-09] VITALS (11 sets, daily range): BP systolic 117–143; BP diastolic 66–117; PULSE 66–77; RESP 16–18; TEMP 36.4–36.5; O2SAT 95–100; BMI 17.6
--- OUTSIDE RECORDS SUMMARY | 2024-12-09 06:17 | XMS RPT_ITS | CCD ---
Author Organization [facility] Care Team Providers Care Procedure Manager Name Role Phone Ariel Vasquez DO Unavailable [phone] Bernabe LIFE SCIENCES INSTRUCTOR-COMMERCIAL GLAZIER, Rowdy Primary Care Provider [phone] OCTAVIO VELEZ Attending Unavailable OCTAVIO VELEZ Referring Unavailable BERNABE, ROWDY Primary Care Unavailable PER HEARN Referring Unavailable BERNABE, ROWDY Primary Care Unavailable BHUMIKA RIVERA Admitting Unavailable BHUMIKA RIVERA Attending Unavailable OCTAVIO VELEZ Attending Unavailable OCTAVIO VELEZ Referring Unavailable BERNABE, ROWDY Primary Care Unavailable Aguilar Phan Consulting Unavailable Rocco Cruz Attending Unavailable Abram Wang Admitting Unavailable Bernabe, Rowdy Primary Care Unavailable Abram Wang Consulting Unavailable Rocco Cruz Consulting Unavailable Bernabe, Rowdy Referring Unavailable Loretta Lu Attending Unavailable Bernabe, Rowdy Primary Care Unavailable Bernabe, Rowdy Primary Care Unavailable Bernabe, Rowdy Referring Unavailable Blanca Mederos Attending Unavailable Geeta Mckenzie Attending Unavailable Bernabe, Rowdy Referring Unavailable Bernabe, Rowdy Primary Care Unavailable Bernabe, Rowdy Attending Unavailable Bernabe, Rowdy Referring Unavailable Bernabe, Rowdy Primary Care Unavailable Bernabe, Rowdy Primary Care Unavailable Aguilar Phan Attending Unavailable Sylvester, Aguilar Referring Unavailable Sylvester, Aguilar Admitting Unavailable Bernabe, Rowdy Primary Care Unavailable Abram Wang Referring Unavailable Jonas Cobb Attending Unavailable Sahil Tobin Attending Unavailable Rocco Cruz Referring Unavailable Bernabe, Rowdy Primary Care Unavailable Jorge Hare Attending Unavailable Vasquez 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, Lina Referring Unavailable Bernabe, Rowdy Primary Care Unavailable Bernabe, Rowdy Primary Care Unavailable Lu, Loretta Referring Unavailable Lu, Loretta Attending Unavailable Bernabe, Rowdy Primary Care Unavailable Bernabe, Rowdy Referring Unavailable Friend, Sahil Attending Unavailable Bernabe, Rowdy Primary Care Unavailable Friend, Sahil Referring Unavailable Friend, Sahil Attending Unavailable Mckenzie, Geeta Referring Unavailable Mckenzie, Geeta Attending Unavailable Bernabe, Rowdy Primary Care Unavailable Bernabe, Rowdy Primary Care Unavailable Bernabe, Rowdy Attending Unavailable Bernabe, Rowdy Referring Unavailable Mckenzie, Geeta Referring Unavailable Bernabe, Rowdy Attending Unavailable Bernabe, Rowdy Primary Care Unavailable Arturo, Loretta Consulting Unavailable Bernabe, Rowdy Primary Care Unavailable Blanca Mederos Attending Unavailable Blanca Mederos Referring Unavailable Vasquez 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, Lina Attending Unavailable Bernabe, Rowdy Primary Care Unavailable Esperanza 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, Ami Referring Unavailable Esperanza 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, Ami Attending Unavailable Bernabe, Orwdy Primary Care Unavailable Abram Wang F Admitting Unavailable LeighsJaylins F Consulting Unavailable Kotsonis, Abram F Attending Unavailable Bernabe, Rowdy Attending Unavailable Bernabe, Rowdy Referring Unavailable Bernabe, Rowdy Primary Care Unavailable Mckenzie, Geeta Referring Unavailable Mckenzie, Geeta Attending Unavailable Bernabe, Rowdy Primary Care Unavailable Mckenzie, Geeta Attending Unavailable Bernabe, Rowdy Primary Care Unavailable Mckenzie, Geeta Referring Unavailable Bernabe, Rowdy Referring Unavailable Bernabe, Rowdy Primary Care Unavailable Esperanza 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, Ami Attending Unavailable Bernabe, Rowdy Referring Unavailable Bernabe, Rowdy Primary Care Unavailable Friend, Sahil Attending Unavailable Mckenzie, Geeta Attending Unavailable Bernabe, Rowdy Primary Care Unavailable Bernabe, Rowdy Referring Unavailable Mckenzie, Geeta Attending Unavailable Kitamishe, Rocco Referring Unavailable Kotsonis, Abram F Attending Unavailable Bernabe, Rowdy Primary Care Unavailable Kotsonis, Abram F Admitting Unavailable Kotsonis, Abram F Consulting Unavailable Mckenzie, Geeta Attending Unavailable Kittoe, Rocco Referring Unavailable Rocco Blank Consulting Unavailable Eliel Osborn Consulting Unavailable Marcelo Howard Consulting Unavailable Herbert Hendrickson Consulting Unavailable Kevin Moses Consulting Unavailable Zeeshan Arroyo Consulting Unavailable Gerardo Hernández Consulting Unavailable Bunny Trejo Consulting Unavailable Esperanza 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, Ami Consulting Unavailable Sylvester, Aguilar Consulting Unavailable Rocco Cruz Consulting Unavailable Friend, Sahil Attending Unavailable Rocco Cruz Attending Unavailable Friend, Sahil Attending Unavailable Bernabe, Rowdy Referring Unavailable Bernabe, Rowdy Primary Care Unavailable Vasquez 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, Lina Attending Unavailable Mckenzie, Geeta Attending Unavailable Bernabe, Rowdy Referring Unavailable Bernabe, Rowdy Primary Care Unavailable Mckenzie, Geeta Attending Unavailable Bernabe, Rowdy Referring Unavailable Bernabe, Rowdy Primary Care Unavailable Bernabe, Rowdy Referring Unavailable Bernabe, Rowdy Primary Care Unavailable Loretta Lu Attending Unavailable Bernabe, Rowdy Primary Care Unavailable K[place]cot[place], Rocco Referring Unavailable Herbert Hendrickson Attending Unavailable Bernabe, Rowdy Primary Care Unavailable Bernabe, Rowdy Referring Unavailable Vasquez 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, Lina Attending Unavailable Friend, Sahil Attending Unavailable Kittoabdullahi, Rocco Referring Unavailable Bernabe, Rowdy Primary Care Unavailable Bernabe, Rowdy Primary Care Unavailable [place], Aguilar Attending Unavailable Kenya Angelo Referring Unavailable Bernabe, Rowdy Referring Unavailable Bernabe, Rowdy Primary Care Unavailable Mckenzie, Geeta Attending Unavailable Mckenzie, Geeta Referring Unavailable Bernabe, Rowdy Primary Care Unavailable Sylvester, Aguilar Attending Unavailable Bernabe, Rowdy Primary Care Unavailable Sylvester, Aguilar Attending Unavailable Mckenzie, Geeta Referring Unavailable Bernabe, Rowdy Referring Unavailable Esperanza 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, Ami Attending Unavailable Sylvester, Aguilar Attending Unavailable Sylvester, Aguilar Referring Unavailable [place], Aguilar Consulting Unavailable Bernabe, Rowdy Primary Care Unavailable Mckenzie, Geeta Consulting Unavailable Bernabe, Rowdy Primary Care Unavailable Mckenzie, Geeta Referring Unavailable Jorge Hare Attending Unavailable Bernabe, Rowdy Primary Care Unavailable Sylvester, Aguilar Consulting Unavailable Rocco Cruz Attending Unavailable Felipe, Abram F Admitting Unavailable Gelacio Wangolas F Consulting Unavailable Bernabe, Rowdy Primary Care Unavailable Rocco Cruz Attending Unavailable Gelacio Wangolas F Consulting Unavailable Gelacio Wangolas F Admitting Unavailable Rocco Blank Consulting Unavailable Eliel Osborn Consulting Unavailable Marcelo Howard Consulting Unavailable Maeveus Mansour Consulting Unavailable Kevin Moses Consulting Unavailable Zeeshan Arroyo Consulting Unavailable Gerardo Hernández Consulting Unavailable Bunny Trejo Consulting Unavailable Esperanza 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, Ami Consulting Unavailable Sylvester, Aguilar Consulting Unavailable Bernabe, Rowdy Primary Care Unavailable Christina 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, Lina Attending Unavailable Christina 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, Lina Referring Unavailable Bernabe, Rowdy Attending Unavailable Bernabe, Rowdy Primary Care Unavailable Jonas Cobb Attending Unavailable Jonas Cobb Referring Unavailable Bernabe, Rowdy Primary Care Unavailable [place], Aguilar Admitting Unavailable [place], Aguilar Referring Unavailable [place], Aguilar Consulting Unavailable Geeta Mckenzie Attending Unavailable Bernabe, Rowdy Primary Care Unavailable Allergies Allergy Classification Reported Allergen(s) Allergy Type Date of Onset Reaction(s) Facility (5 sources) busPIRone; Translations: [BUSPIRONE] Drug Allergy 5 Other [facility] Work Phone: (5 sources) Sucralfate; Translations: [SUCRALFATE] Drug Allergy 9 Other, Unknown [facility] Work Phone: (5 sources) traZODone; Translations: [TRAZODONE] Drug Allergy 5 Other [facility] Work Phone: (5 sources) Bee Venom Protein (Honey Bee); Translations: [BEE VENOM PROTEIN (HONEY BEE)] Allergy to substance 9 Anaphylaxis [facility] Work Phone: (1 source) busPIRone Drug Allergy 5 [facility] Repository (1 source) Sucralfate Drug Allergy 5 [facility] Repository (1 source) traZODone Drug Allergy 5 [facility] Repository (1 source) venom-honey bee Drug allergy (disorder) 5 [facility] Repository Medications Current Medications Medication Drug Class(es) Dates Sig (Normalized) Sig (Original) acetaminophen 325 mg oral tablet (1 source) Start: 10-30-2024 take 1 tablet by mouth every eight hours as needed 975 mg, oral, Every 8 hours PRN, pain mild (1-3), first line, pain moderate (4-6), first line, pain severe (7-10), first line, Starting on Sat10/30/24 at 1018, If ordered PRN for pain, nurse is permitted to administer this medication for higher pain scores based on patient preference? Yes [id number] 200 actuat albuterol 0.09 mg/actuat metered dose inhaler (4 sources) beta2-Adrenergic Agonist Start: 10-29-2024 take 2 puff(s) by in halation every six hours albuterol 90 mcg/actuation inhaler Inhal e 2 puffs every 6 hours if needed for shortness of breath. Active albuterol 0.833 mg/ml / ipratropium bromide 0.167 mg/ml inhalation solution (6 sources) Anticholinergic, beta2-Adrenergic Agonist Start: 10-29-2024 take 3 mL by inhalation every six hours as needed Start: 07-13-2024 ipratropium-al buteroL (Duo-Neb) 0.5-2.5 mg/3 mL nebulizer solution Take 3 mL by nebulization 2 times a day. 07/13/2024 Active ascorbic acid 500 mg oral tablet (4 sources) Vitamin C Start: 10-29-2024 take 500 mg by mouth once daily in the evening 500 mg, oral, Every evening, First dose on Sat10/29/24 at 2100 aspirin 81 mg delayed release oral tablet (6 sources) Platelet Aggregation Inhibitor, Nonsteroidal Anti-inflammatory Drug Start: 10-29-2024 budesonide 0.25 mg/ml inhalation suspension (6 sources) Corticosteroid Start: 10-29-2024 take 1 mg by mouth twice daily 1 mg, nebulization, 2 times daily RT, First dose on Sat10/29/24 at 1900, Rinse mouth with water after use to reduce aftertaste and incidence of candidiasis. Do not swallow. Start: 07-19-2024 take 1 dose by inhal ation twice daily budesonide (Pulmicort) 1 mg/2 mL nebulizer solution INHALE THE CONTENTS OF ONE VIAL VIA NEBULIZER TWICE DAILY 07/19/2024 Active 24 hr buPROPion hydrochloride 150 mg extended release oral tablet (6 sources) Aminoketone Start: 10-30-2024 take 300 mg by mouth once daily 300 mg, oral, Daily, First dose on Sat10/30/24 at 0900, Do not crush, chew, or split. Start: 06-26-2024 take 1 tablet by jessica th once daily in the morning buPROPion XL (Wellbutrin XL) 300 mg 24 hr tablet Take 1 tablet (300 mg) by mouth once daily. Take at 9 AM 06/26/2024 Active donepezil hydrochloride 5 mg oral tablet (6 sources) Start: 07-19-2024 take 1 tablet by mouth once daily at bedtime donepezil (Aricept) 5 mg tablet TAKE 1 TABLET BY MOUTH ONCE DAILY AT BEDTIME (9PM) 07/19/2024 Active ferrous sulfate 325 mg oral tablet (6 sources) Start: 06-13-2024 take 1 tablet by mouth once daily in the evening FeroSuL 325 mg (65 mg iron) tablet Take 1 tablet by mouth once daily in the evening. 06/13/2024 Active hydrOXYzine hydrochloride 25 mg oral tablet (4 sources) Antihistamine Start: 10-29-2024 mv-min/folic/K1/lycop en/lutein (CENTRUM SILVER MEN ORAL) (3 sources) take 1 tablet by mouth once daily mv-min/folic/K1/l ycopen/lutein (CENTRUM SILVER MEN ORAL) Take 1 tablet by mouth once daily. Active omeprazole 40 mg delayed release oral capsule (5 sources) Proton Pump Inhibitor Start: 06-26-2024 take 1 capsule by mouth once daily, then take 0.5 capsule by mouth every hour before mealtime omeprazole (PriLOSEC) [address] capsule TAKE ONE CAPSULE BY MOUTH DAILY AT 9AM HALF AN HOUR BEFORE A MEAL 06/26/2024 Active pantoprazole 40 mg delayed release oral tablet (1 source) Proton Pump Inhibitor Start: 10-30-2024 take 40 mg by mouth once daily before breakfast 40 mg, oral, Daily before breakfast, First dose on 10/30/24 at 0700, Do not crush, chew, or split. polyethylene glycol 3350 46119 mg powder for oral solution (1 source) Osmotic Laxative Start: 10-29-2024 take 17 g by mouth every twenty-four hours as needed 17 g, oral, Daily PRN, constipation, Starting on Penny 10/29/24 at 1321, Bowel Regimen - for prevention of constipation. prazosin 2 mg oral capsule (4 sources) alpha-Adrenergic Raquel Start: 10-29-2024 pseudoephedrine hydrochloride 30 mg oral tablet (4 sources) alpha-Adrenergic Agonist Start: 10-29-2024 take 1 tablet by mouth every four hours as needed rosuvastatin calcium 20 mg oral tablet (6 sources) HMG-CoA Reductase Inhibitor Start: 07-19-2024 take 1 tablet by mouth once daily at bedtime rosuvastatin (Crestor) 20 mg tablet Take 1 tablet (20 mg) by mouth once daily at bedtime. 07/19/2024 Active sertraline 50 mg oral tablet (6 sources) Serotonin Reuptake Inhibitor Start: 10-20-2024 take 1 tablet by mouth once daily in the morning sertraline (Zoloft) 50 mg tablet TAKE 1 TABLET BY MOUTH ONCE DAILY AT 9 AM 10/20/2024 Active vitamin b12 1 mg oral tablet (4 sources) Vitamin B12 Start: 10-30-2024 take 1000 ug by mouth once daily 1,000 mcg, oral, Daily, First dose on Sat10/30/24 at 0900 Completed/Discontinued Medications Medication Drug Class(es) Dates Sig (Normalized) Sig (Original) ibuprofen 600 mg oral tablet (5 sources) Nonsteroidal Anti-inflammatory Drug Start: 06-26-2024 End: 10-30-2024 take 1 tablet by mouth three times daily as needed for pain ibuprofen 600 mg tablet Take 1 tablet (600 mg) by mouth 3 times a day as needed for mild pain (1 - 3). 06/26/2024 10/30/2024 Discontinued (Stop Taking at Discharge) 5 ml iron sucrose 20 mg/ml injection (1 source) Parenteral Iron Replacement Start: 10-30-2024 End: 10-30-2024 200 mg, intravenous, Administer over 5 Minutes, Once, On Sat10/30/24 at 1530, For 1 dose iron sucrose (Venofer) 300 mg in sodium chloride 0.9% 282 mL IV (1 source) Start: 10-29-2024 End: 10-29-2024 300 mg, intravenous, at 188 mL/hr, Administer over 90 Minutes, Once, On Sat10/29/24 at 1830, For 1 dose, Vital signs pre and post infusion. Problems Active Problems Problem Classification Problem Date Documented Date Episodic/Chronic Asthma (4 sources) Asthma; Translations: [Unspecified asthma, uncomplicated] Onset: 10-30-2024 10-30-2024 Chronic Chronic obstructive pulmonary disease and bronchiectasis (6 sources) Chronic obstructive lung disease; Translations: [Chronic obstructive pulmonary disease, unspecified] Onset: 05-19-2024 10-30-2024 Chronic Deficiency and other anemia (6 sources) Iron deficiency anemia due to blood loss; Translations: [Iron deficiency anemia secondary to blood loss (chronic)] 10-29-2024 Chronic Deficiency and other anemia (3 sources) Iron deficiency anemia secondary to blood loss (chronic); Translations: [Iron deficiency anemia secondary to blood loss (chronic)] Onset: 07-29-2024 Chronic Deficiency and other anemia (4 sources) Anemia; Translations: [Anemia, unspecified] Onset: 10-30-2024 10-30-2024 Episodic Deficiency and other anemia (2 sources) Iron deficiency anemia, unspecified; Translations: [Iron deficiency anemia, unspecified] Onset: 11-13-2024 Episodic Deficiency and other anemia (2 sources) Anemia, unspecified; Translations: [Anemia, unspecified] Onset: 08-13-2024 Episodic Hepatitis (4 sources) Viral hepatitis C; Translations: [Unspecified viral hepatitis C without hepatic coma] Onset: 10-30-2024 10-30-2024 Episodic Occlusion or stenosis of precerebral arteries (1 source) Occlusion and stenosis of bilateral carotid arteries; Translations: [Occlusion and stenosis of bilateral carotid arteries] Onset: 04-09-2024 Chronic Other circulatory disease (1 source) Peripheral vascular angioplasty status; Translations: [Peripheral vascular angioplasty status] Onset: 09-10-2024 Episodic Other disorders of stomach and duodenum (6 sources) Angiodysplasia of stomach and duodenum without bleeding; Translations: [Angiodysplasia of stomach and duodenum without mention of hemorrhage] Onset: 10-29-2024 10-29-2024 Episodic Peripheral and visceral atherosclerosis (4 sources) Peripheral vascular disease, unspecified; Translations: [Atherosclerosis of [place] arteries of extremities with intermittent claudication, left leg] Onset: 07-22-2024 Chronic Residual codes; unclassified (6 sources) Past history of procedure; Translations: [Other specified postprocedural states] 10-29-2024 Episodic Substance-related disorders (2 sources) Nicotine dependence, cigarettes, uncomplicated; Translations: [Nicotine dependence, unspecified, uncomplicated] Onset: 07-31-2024 Chronic Unclassified (2 sources) Angiectasia of gastrointestinal tract 10-30-2024 Past or Other Problems Problem Classification Problem Date Documented Da te Episodic/Chronic Gastrointestinal hemorrhage (11 sources) Gastrointestinal hemorrhage; Translations: [Gastrointestinal hemorrhage, unspecified] Onset: 5 10-29-2024 Episodic Malaise and fatigue (1 source) Weakness; Translations: [Weakness] Onset: 5 Episodic Other aftercare (1 source) Encounter for surgical aftercare following surgery on the circulatory system; Translations: [Encounter for surgical aftercare following surgery on the circulatory system] Onset: 5 Episodic Other lower respiratory disease (1 source) Solitary pulmonary nodule; Translations: [Solitary pulmonary nodule] Onset: 5 Episodic Other lower respiratory disease (1 source) Wheezing; Translations: [Wheezing] Onset: 4 Episodic Other non-traumatic joint disorders (1 source) Pain in right hip; Translations: [Pain in right hip] Onset: 5 Episodic Other screening for suspected conditions (not mental disorders or infectious disease) (11 sources) Imaging of gastrointestinal tract abnormal; Translations: [Abnormal findings on diagnostic imaging of other parts of digestive tract] Onset: 5 10-29-2024 Episodic Residual codes; unclassified (3 sources) Other specified postprocedural states; Translations: [Other specified postprocedural states] Onset: 5 Episodic Results Test Name Value Interpretation Reference Range Facility CBC W/Diff, Automatedon 10- Anisocytosis Ql (Bld) 2+ Normal [facility] Comment on above: Performed By: #### L 100.0100 ####[facility] [address] [place], [address] MACROCYTOSIS 1+ Normal [facility] Comment on above: Performed By: #### L 100.0100 ####[facility] [address] [place], [address] MICROCYTIC 1+ Normal [facility] Comment on above: Performed By: #### L 100.0100 ####[facility] [address] [place], [address] OVALOCYTE RARE Normal [facility] Comment on above: Performed By: #### L 100.0100 ####[facility] [address] [place], [address] SMEAR COMMENT SCANNED Normal [facility] Comment on above: Performed By: #### L 100.0100 ####[facility] [address] [place], [address] Gastroenterology Visit Repor ton 11-13-2024 Gastroenterology Visit Report Normal [facility] CBC W/Diff, Automatedon 10-13 Anisocytosis Ql (Bld) 1+ Normal [facility] Comment on above: Performed By: #### L 503.6150, L503.6550, L100.0100 ####[facility] [address] [place], [address] Ferritinon 11-09-2024 Ferritin [Mass/Vol] 171 ng/mL Normal 37-417 [facility] Comment on above: Performed By: #### L 503.6150, L503.6550, L100.0100 ####[facility] [address] [place], [address] Ironon 11-09-2024 Iron [Mass/Vol] 35 ug/dL Low 65-175 [facility] Comment on above: Performed By: #### L 503.6150, L503.6550, L100.0100 ####[facility] [address] [place], [address] CBC W Auto Differential pane l (Bld)on 10-30-2024 Basophils (Bld) [#/Vol] 0.02 10*3/uL [facility] Basophils/100 WBC (Bld) 0.3 % 0.0 - 2.0 % [facility] Eosinophils (Bld) [#/Vol] 0.26 10*3/uL [facility] Eosinophils/100 WBC (Bld) 3.8 % 0.0 - 6.0 % [facility] Erythrocyte distribution width (RBC) [Ratio] 19.0 % High 11.5 - 14.5 % [facility] Hematocrit (Bld) [Volume fraction] 26.9 % Low 41.0 - 52.0 % [facility] Hemoglobin (Bld) [Mass/Vol] 7.7 g/dL Low 13.5 - 17.5 g/dL [facility] Immature granulocytes (Bld) [#/Vol] 0.03 10*3/uL [facility] Immature granulocytes/100 WBC (Bld) 0.4 % 0.0 - 0.9 % [facility] Comment on above: Immature Granulocyte Count (IG) includes promyelocytes, myelocytes and metamyelocytes but does not include bands. Percent differential counts (%) should be interpreted in the context of the absolute cell counts (cells/UL). Interpretation and review of laboratory results Abnormal [facility] Lymphocytes (Bld) [#/Vol] 0.66 10*3/uL Low [facility] Lymphocytes/100 WBC (Bld) 9.7 % 13.0 - 44.0 % [facility] MCH (RBC) [Entitic mass] 23.3 pg Low 26.0 - 34.0 pg [facility] MCHC (RBC) [Mass/Vol] 28.6 g/dL Low 32.0 - 36.0 g/dL [facility] MCV (RBC) [Entitic vol] 82 fL 80 - 100 fL [facility] Monocytes (Bld) [#/Vol] 0.38 10*3/uL [facility] Monocytes/100 WBC (Bld) 5.6 % 2.0 - 10.0 % [facility] Neutrophils (Bld) [#/Vol] 5.46 10*3/uL [facility] Comment on above: Percent differential counts (%) should be interpreted in the context of the absolute cell counts (cells/uL). Neutrophils/100 WBC (Bld) 80.2 % 40.0 - 80.0 % [facility] Nucleated RBC/100 WBC (Bld) [Ratio] 0.0 % [facility] Platelets (Bld) [#/Vol] 409 10*3/uL [facility] RBC (Bld) [#/Vol] 3.30 10*6/uL Low [facility] WBC (Bld) [#/Vol] 6.8 10*3/uL [facility] Basophils (Bld) [#/Vol] 0.02 x10*3/uL Normal 0.00-0.10 [facility] Comment on above: Performed By: #### 5 7021-8 ####SHILPI Siddiqui ([id number])[facility] ([facility])[address] [place] [address] Basophils/100 WBC (Bld) 0.3 % Normal 0.0-2.0 [facility] Comment on above: Performed By: #### 5 7021-8 ####SHILPI Siddiqui ([id number])[facility] ([facility])[address] [place] [address] Eosinophils (Bld) [#/Vol] 0.26 x10*3/uL Normal 0.00-0.40 [facility] Comment on above: Performed By: #### 5 7021-8 ####SHILPI Siddiqui ([id number])[facility] ([facility])[address] [place] [address] Eosinophils/100 WBC (Bld) 3.8 % Normal 0.0-6.0 [facility] Comment on above: Performed By: #### 5 7021-8 ####SHILPI Siddiqui ([id number])[facility] ([facility])[address] [place] [address] Erythrocyte distribution width (RBC) [Ratio] 19.0 % High 11.5-14.5 [facility] Comment on above: Performed By: #### 5 7021-8 ####SHILPI Siddiqui ([id number])[facility] ([facility])[address] [place] [address] Hematocrit (Bld) [Volume fraction] 26.9 % Low 41.0-52.0 [facility] Comment on above: Performed By: #### 5 7021-8 ####SHILPI Siddiqui ([id number])[facility] ([facility])[address] [place] [address] Hemoglobin (Bld) [Mass/Vol] 7.7 g/dL Low 13.5-17.5 [facility] Comment on above: Performed By: #### 5 7021-8 ####SHILPI PARRA L ([id number])[facility] CENTER)[address] [place] [address] Immature granulocytes (Bld) [#/Vol] 0.03 x10*3/uL Normal 0.00-0.50 [facility] Comment on above: Performed By: #### 5 7021-8 ####SHILPI PARRA L ([id number])[facility] ([facility])[address] [place] [address] Immature granulocytes/100 WBC (Bld) 0.4 % Normal 0.0-0.9 [facility] Comment on above: Result Comment: Della ture Granulocyte Count (IG) includes promyelocytes, myelocytes and metamyelocytes but does not include bands. Percent differential counts (%) should be interpreted in the context of the absolute cell counts (cells/UL). Performed By: #### 5 7021-8 ####SHILPI PARRA L ([id number])[facility] ([facility])[address] [place] [address] Lymphocytes (Bld) [#/Vol] 0.66 x10*3/uL Low 0.80-3.00 [facility] Comment on above: Performed By: #### 5 7021-8 ####SHILPI PARRA L ([id number])[facility] ([facility])[address] [place] [address] Lymphocytes/100 WBC (Bld) 9.7 % Normal 13.0-44.0 [facility] Comment on above: Performed By: #### 5 7021-8 ####SHILPI SPENCEMOTZER L ([id number])[facility] ([facility])[address] [place] [address] MCH (RBC) [Entitic mass] 23.3 pg Low 26.0-34.0 [facility] Comment on above: Performed By: #### 5 7021-8 ####SHILPI Siddiqui ([id number])[facility] ([facility])[address] [place] [address] MCHC (RBC) [Mass/Vol] 28.6 g/dL Low 32.0-36.[address] [facility] Comment on above: Performed By: #### 5 7021-8 ####SHILPI Siddiqui ([id number])[facility] ([facility])[id number] [place] [address] MCV (RBC) [Entitic vol] 82 fL Normal 80-100 [facility] Comment on above: Performed By: #### 5 7021-8 ####SHILPI Siddiqui ([id number])[facility] ([facility])[address] [place] [address] Monocytes (Bld) [#/Vol] 0.38 x10*3/uL Normal 0.05-0.80 [facility] Comment on above: Performed By: #### 5 7021-8 ####SHILPI Siddiqui ([id number])[facility] ([facility])[address] [place] [address] Monocytes/100 WBC (Bld) 5.6 % Normal 2.0-10.0 [facility] Comment on above: Performed By: #### 5 7021-8 ####SHILPI Siddiqui ([id number])[facility] ([facility])[address] [place] [address] Neutrophils (Bld) [#/Vol] 5.46 x10*3/uL Normal 1.60-5.50 [facility] Comment on above: Result Comment: Perc ent differential counts (%) should be interpreted in the context of the absolute cell counts (cells/uL). Performed By: #### 5 7021-8 ####SHILPI Siddiqui ([id number])[facility] ([facility])[address] [place] [address] [place] [address] Neutrophils/100 WBC (Bld) 80.2 % Normal 40.0-80.0 [facility] Comment on above: Performed By: #### 5 7021-8 ####SHILPI Siddiqui ([id number])[facility] ([facility])[address] [place] [address] Nucleated RBC/100 WBC (Bld) [Ratio] 0.0 /100 WBCs Normal 0.0-0.0 [facility] Comment on above: Performed By: #### 5 7021-8 ####SHILPI PARRA L ([id number])[facility] ([facility])[address] [place] [address] Platelets (Bld) [#/Vol] 409 x10*3/uL Normal 150-450 [facility] Comment on above: Performed By: #### 5 7021-8 ####SHILPI PARRA L ([id number])[facility] ([facility])[address] [place] [address] RBC (Bld) [#/Vol] 3.30 x10*6/uL Low 4.50-5.90 [facility] Comment on above: Performed By: #### 5 7021-8 ####SHILPI PARRA L ([id number])[facility] ([facility])[address] [place] [address] WBC (Bld) [#/Vol] 6.8 x10*3/uL Normal 4.4-11.3 [facility] Comment on above: Performed By: #### 5 7021-8 ####SHILPI PARRA L ([id number])[facility] ([facility])[address] [place] [address] ENTEROSCOPYon 10-30-2024 ENTEROSCOPY Table formatting from the original result was not included. Findings The esophagus appeared normal. Mild, patchy erythematous mucosa in the fundus of the stomach, body of the stomach, incisura, antrum and prepyloric region, suggestive of gastritis; no bleeding was observed Multiple small angioectasias in the duodenal bulb, 2nd part of the duodenum, 3rd part of the duodenum and 4th part of the duodenum; no bleeding was observed; the lesion was completely ablated with argon plasma coagulation using a straight fire probe. Six non-bleeding angioectasias were noted scattered throughout the duodenum. One of the six angioectasias bled on initial contact with APC and was subsequently cauterized with continued APC with no further bleeding seen. One 5 mm semi-pedunculated Christie Isp polyp in the 2nd part of the duodenum. It was not removed at this time given purpose of exam. Single small diverticulum with no inflammation in the 2nd part of the duodenum; no bleeding was observed Multiple small angioectasias in the proximal jejunum; no bleeding was observed; the lesion was completely ablated with argon plasma coagulation using a straight fire probe. Five non-bleeding angioectasias were visualized in the proximal jejunum. Two bled with initial APC contact and then stopped bleeding with additional APC therapy. No angioectasias were noted in the mid-jejunum to extent visualized. No blood was otherwise noted on this procedure. Recommendations Follow up with Bhumika Rivera DO - Inpatient Medicine Service. Okay to start clear liquid diet and advance as tolerated. Follow up with Kristen Madrid MD, Gisele Vaughn MD, and Jeremy Owens MD - Inpatient GI Consult Service. Follow up with primary gastroenterology nurse practitioner, Loretta Lu NP. Follow up with primary inpatient auditor, Sahil Tobin DO, for future EGD for duodenal polyp removal and future push enteroscopies as needed for endoscopic treatment of duodenal and proximal jejunal angioectasias. Follow up with primary care nurse practitioner, Rowdy Guevara NP, as patient will likely require ongoing IV iron infusions on regular basis. Indications Iron deficiency anemia due to chronic blood loss Angiectasia of gastrointestinal tract Imaging of gastrointestinal tract abnormal Status post endoscopy The patient was scheduled for single balloon enteroscopy as an outpatient 10/29/24. However, he had blood work done in [place], [place] on 10/28/24 which revealed a low hemoglobin. He was contacted 10/29/24 by a gastroenterology physician social work assistant at his [place] office who advised him to go to the ER. However, the patient did not do so and drove to [place] for his endoscopy procedure instead. Due to his low hemoglobin, his endoscopy with anesthesia services was cancelled, and he was admitted to medicine for transfusion prior to repeat attempt as inpatient procedure today. Plan for single balloon enteroscopy for treatment of angioectasias noted in proximal small bowel on SBCE done in [place], [place]. Staff Staff Role Octavio Velez MD Proceduralist Medications See Anesthesia Record. Preprocedure A history and physical has been performed, and patient medication allergies have been reviewed. The patient's tolerance of previous anesthesia has been reviewed. The risks and benefits of the procedure and the sedation options and risks were discussed with the patient. All questions were answered and informed consent obtained. Details of the Procedure The patient underwent general anesthesia, which was administered by an anesthesia professional. The patient's blood pressure, heart rate, level of consciousness, oxygen saturation, respirations, ECG and ETCO2 were monitored throughout the procedure. The scope was introduced through the mouth and advanced to the middle part of the jejunum. Insufflated with carbon dioxide. The procedure was performed using a single balloon overtube. Fluoroscopy was not used. Retroflexion was performed in the cardia. The patient's estimated blood loss was minimal. The procedure was not difficult. FluoroscopyThe patient tolerated the procedure well. There were no apparent adverse events. Events Procedure Events Event Event Time ENDO SCOPE IN TIME 10/30/2024 1:29 PM ENDO SCOPE OUT TIME 10/30/2024 2:11 PM Specimens No specimens collected Procedure Location [facility] [address] [place] [id number] Referring Provider Loretta Lu NP Procedure Provider Octavio Velez MD [facility] Enteroscopy Study observatio n Narrativeon 10-30-2024 Table formatting from the original result was not included. Findings The esophagus appeared normal. Mild, patchy erythematous mucosa in the fundus of the stomach, body of the stomach, incisura, antrum and prepyloric region, suggestive of gastritis; no bleeding was observed Multiple small angioectasias in the duodenal bulb, 2nd part of the duodenum, 3rd part of the duodenum and 4th part of the duodenum; no bleeding was observed; the lesion was completely ablated with argon plasma coagulation using a straight fire probe. Six non-bleeding angioectasias were noted scattered throughout the duodenum. One of the six angioectasias bled on initial contact with APC and was subsequently cauterized with continued APC with no further bleeding seen. One 5 mm semi-pedunculated Christie Isp polyp in the 2nd part of the duodenum. It was not removed at this time given purpose of exam. Single small diverticulum with no inflammation in the 2nd part of the duodenum; no bleeding was observed Multiple small angioectasias in the proximal jejunum; no bleeding was observed; the lesion was completely ablated with argon plasma coagulation using a straight fire probe. Five non-bleeding angioectasias were visualized in the proximal jejunum. Two bled with initial APC contact and then stopped bleeding with additional APC therapy. No angioectasias were noted in the mid-jejunum to extent visualized. No blood was otherwise noted on this procedure. Recommendations Follow up with Bhumika Rivera DO - Inpatient Medicine Service. Okay to start clear liquid diet and advance as tolerated. Follow up with Kristen Madrid MD, Gisele Vaughn MD, and Jeremy Owens MD - Inpatient GI Consult Service. Follow up with primary gastroenterology nurse practitioner, Loretta Lu NP. Follow up with primary inpatient auditor, Sahil Tobin DO, for future EGD for duodenal polyp removal and future push enteroscopies as needed for endoscopic treatment of duodenal and proximal jejunal angioectasias. Follow up with primary care nurse practitioner, Rowdy Guevara NP, as patient will likely require ongoing IV iron infusions on regular basis. Indications Iron deficiency anemia due to chronic blood loss Angiectasia of gastrointestinal tract Imaging of gastrointestinal tract abnormal Status post endoscopy The patient was scheduled for single balloon enteroscopy as an outpatient 10/29/24. However, he had blood work done in [place] on 10/28/24 which revealed a low hemoglobin. He was contacted 10/29/24 by a gastroenterology physician social work assistant at his [place] office who advised him to go to the ER. However, the patient did not do so and drove to [place] for his endoscopy procedure instead. Due to his low hemoglobin, his endoscopy with anesthesia services was cancelled, and he was admitted to medicine for transfusion prior to repeat attempt as inpatient procedure today. Plan for single balloon enteroscopy for treatment of angioectasias noted in proximal small bowel on SBCE done in [place], [place]. Staff Staff Role Octavio Velez MD Proceduralist Medications See Anesthesia Record. Preprocedure A history and physical has been performed, and patient medication allergies have been reviewed. The patient's tolerance of previous anesthesia has been reviewed. The risks and benefits of the procedure and the sedation options and risks were discussed with the patient. All questions were answered and informed consent obtained. Details of the Procedure The patient underwent general anesthesia, which was administered by an anesthesia professional. The patient's blood pressure, heart rate, level of consciousness, oxygen saturation, respirations, ECG and ETCO2 were monitored throughout the procedure. The scope was introduced through the mouth and advanced to the middle part of the jejunum. Insufflated with carbon dioxide. The procedure was performed using a single balloon overtube. Fluoroscopy was not used. Retroflexion was performed in the cardia. The patient's estimated blood loss was minimal. The procedure was not difficult. FluoroscopyThe patient tolerated the procedure well. There were no apparent adverse events. Events Procedure Events Event Event Time ENDO SCOPE IN TIME 10/30/2024 1:29 PM ENDO SCOPE OUT TIME 10/30/2024 2:11 PM Specimens No specimens collected Procedure Location [address] [id number] Referring Provider Loretta Lu NP Procedure Provider Octavio Velez MD [facility] Work Phone: [facility] Work Phone: Radiology Study observation (narrative) [facility] Work Phone: Glucose Test strip manual (B ld) [Mass/Vol]on 10-30-2024 Glucose [Mass/Vol] 90 mg/dL 74 - 99 mg/dL [facility] Interpretation and review of laboratory results Normal [facility] Glucose [Mass/Vol] 90 mg/dL Normal 74-99 [facility] Comment on above: Performed By: #### 2 341-6 ####SHILPI Siddiqui ([id number])[facility] ([facility])[address] [place] [address] Magnesiumon 10-30-2024 Magnesium [Mass/Vol] 2.17 mg/dL 1.60 - 2.40 mg/dL [facility] Magnesium [Mass/Vol] 2.17 mg/dL Normal 1.60-2.40 [facility] Comment on above: Performed By: #### 1 9123-9 ####SHILPI Siddiqui ([id number])[facility] ([facility])[address] [place] [address] Magnesium [Mass/Vol]on 10-30 Interpretation and review of laboratory results Normal [facility] No Panel Informationon 10-30 [facility] Prepare RBC: 1 Unitson 10-30 Blood Expiration Date 11/24/2024 11:59:0 0 PM EDT [facility] Dispense Status TR [facility] PRODUCT BLOOD TYPE 5100 [facility] PRODUCT CODE [id number] [facility] Unit ABO O [facility] Unit Number [id number] [facility] Unit RH Positive [facility] UNIT VOLUME 350 [facility] XM INTEP COMP [facility] Renal function 2000 panelon 10-30-2024 Albumin BCP dye [Mass/Vol] 4.1 g/dL 3.4 - 5.0 g/dL [facility] Anion gap [Moles/Vol] 13 mmol/L 10 - 2 0 mmol/L [facility] Calcium [Mass/Vol] 9.1 mg/dL 8.6 - 10. 6 mg/dL [facility] Chloride [Moles/Vol] 108 mmol/L High 98 - 10 7 mmol/L [facility] CO2 [Moles/Vol] 20 mmol/L Low 21 - 32 mmol/L [facility] Creatinine [Mass/Vol] 0.92 mg/dL 0.50 - 1.30 mg/dL [facility] GFR/1.73 sq M.predicted among non-blacks MDRD (S/P/Bld) [Vol rate/Area] 89 mL/min/{1.73_m2} - PINF [facility] Comment on above: Calculations of regina mated GFR are performed using the 2020 CKD-EPI Study Refit equation without the race variable for the IDMS-Traceable creatinine methods. https://jasn.asnjournals.org/content/early/ASN 470133 Glucose [Mass/Vol] 93 mg/dL 74 - 99 mg/dL [facility] Interpretation and review of laboratory results Abnormal [facility] Phosphate [Mass/Vol] 3.2 mg/dL 2.5 - 4 .9 mg/dL [facility] Potassium [Moles/Vol] 4.1 mmol/L 3.5 - 5.3 mmol/L [facility] Sodium [Moles/Vol] 137 mmol/L 136 - 145 mmol/L [facility] Urea nitrogen [Mass/Vol] 19 mg/dL 6 - 23 mg/dL [facility] Albumin BCP dye [Mass/Vol] 4.1 g/dL Normal 3.4-5.0 [facility] Comment on above: Performed By: #### 2 4362-6 ####SHILPI Siddiqui ([id number])[facility] ([facility])[id number] [place] [address] Anion gap [Moles/Vol] 13 mmol/L Normal 10-[address] [facility] Comment on above: Performed By: #### 2 4362-6 ####SHILPI Siddiqui ([id number])[facility] ([facility])[id number] [place] [address] Calcium [Mass/Vol] 9.1 mg/dL Normal 8.6-10.6 [facility] Comment on above: Performed By: #### 2 4362-6 ####SHILPI Siddiqui ([id number])[facility] ([facility])[address] [place] [address] Chloride [Moles/Vol] 108 mmol/L High 98-107 [facility] Comment on above: Performed By: #### 2 4362-6 ####SHILPI Siddiqui ([id number])[facility] ([facility])[address] [place] [address] CO2 [Moles/Vol] 20 mmol/L Low 21-32 [facility] Comment on above: Performed By: #### 2 4362-6 ####SHILPI Siddiqui ([id number])[facility] ([facility])[address] [place] [address] Creatinine [Mass/Vol] 0.92 mg/dL Normal 0.50-1.[address] [facility] Comment on above: Performed By: #### 2 4362-6 ####SHILPI Siddiqui ([id number])[facility] ([facility])[address] [place] [address] Glomerular filtration rate 89 mL/min/1.73m*2 Normal >60 [facility] Comment on above: Result Comment: Calc ulations of estimated GFR are performed using the 2020 CKD-EPI Study Refit equation without the race variable for the IDMS-Traceable creatinine methods. https://jasn.asnjournals.org/content/early//ASN.2020 839156 Performed By: #### 2 4362-6 ####SHILPI Siddiqui ([id number])[facility] ([facility])[address] [place] [address] Glucose [Mass/Vol] 93 mg/dL Normal 74-99 [facility] Comment on above: Performed By: #### 2 4362-6 ####SHILPI Siddiqui ([id number])[facility] ([facility])[address] [place] [address] Phosphate [Mass/Vol] 3.2 mg/dL Normal 2.5-4.9 [facility] Comment on above: Performed By: #### 2 4362-6 ####SHILPI Siddiqui ([id number])[facility] ([facility])[address] [place] [address] Potassium [Moles/Vol] 4.1 mmol/L Normal 3.5-5.[address] [facility] Comment on above: Performed By: #### 2 4362-6 ####SHILPI PARRA L ([id number])[facility] ([facility])[address] [place] [address] Sodium [Moles/Vol] 137 mmol/L Normal 136-145 [facility] Comment on above: Performed By: #### 2 4362-6 ####SHILPI Siddiqui ([id number])[facility] ([facility])[id number] [place] [address] Urea nitrogen [Mass/Vol] 19 mg/dL Normal 6-23 [facility] Comment on above: Performed By: #### 2 4362-6 ####SHILPI Siddiqui ([id number])[facility] ([facility])[address] [place] [address]197 Blood type and Indirect anti body screen panel (Bld)on 10-29-2024 ABO group Nom (Bld) O [facility] Blood group antibody screen Ql Negative [facility] D Ag Ql (Bld) Positive [facility] ABO group Nom (Bld) O Normal [facility] Comment on above: Performed By: #### 3 4532-2 #### SHILPI Siddiqui ([id number]) [facility] ([facility]) [id number] [place] [address] Blood group antibody screen Ql Negative Normal [facility] Comment on above: Performed By: #### 3 4532-2 #### SHILPI Siddiqui ([id number]) [facility] ([facility]) [address] [place] [address] D Ag Ql (Bld) Positive Normal [facility] Comment on above: Performed By: #### 3 4532-2 #### SHILPI Siddiqui ([id number]) [facility] ([facility]) [address] [place] [address]34[address] CBC panel Auto (Bld)on 10-29 Erythrocyte distribution width (RBC) [Ratio] 19.2 % High 11.5 - 14.5 % [facility] Hematocrit (Bld) [Volume fraction] 23.5 % Low 41.0 - 52.0 % [facility] Hemoglobin (Bld) [Mass/Vol] 7.0 g/dL Low 13.5 - 17.5 g/dL [facility] Interpretation and review of laboratory results Abnormal [facility] MCH (RBC) [Entitic mass] 24.5 pg Low 26.0 - 34.0 pg [facility] MCHC (RBC) [Mass/Vol] 29.8 g/dL Low 32.0 - 36.0 g/dL [facility] MCV (RBC) [Entitic vol] 82 fL 80 - 100 fL [facility] Nucleated RBC/100 WBC (Bld) [Ratio] 0.0 % [facility] Platelets (Bld) [#/Vol] 442 10*3/uL [facility] RBC (Bld) [#/Vol] 2.86 10*6/uL Low [facility] WBC (Bld) [#/Vol] 7.9 10*3/uL [facility] Erythrocyte distribution width (RBC) [Ratio] 19.2 % High 11.5-14.5 [facility] Comment on above: Performed By: #### 5 8410-2 #### SHILPI Siddiqui ([id number]) [facility] ([facility]) [address] [place] [address] Hematocrit (Bld) [Volume fraction] 23.5 % Low 41.0-52.0 [facility] Comment on above: Performed By: #### 5 8410-2 #### SHILPI Siddiqui ([id number]) [facility] ([facility]) [address] [place] [address] Hemoglobin (Bld) [Mass/Vol] 7.0 g/dL Low 13.5-17.5 [facility] Comment on above: Performed By: #### 5 8410-2 #### SHILPI Siddiqui ([id number]) [facility] ([facility]) [address] [place] [address] MCH (RBC) [Entitic mass] 24.5 pg Low 26.0-34.0 [facility] Comment on above: Performed By: #### 5 8410-2 #### SHILPI Siddiqui ([id number]) [facility] ([facility]) [address] [place] [address]141 MCHC (RBC) [Mass/Vol] 29.8 g/dL Low 32.0-36.[address] [facility] Comment on above: Performed By: #### 5 8410-2 #### SHILPI Siddiqui ([id number]) [facility] ([facility]) [id number] [place] [address] MCV (RBC) [Entitic vol] 82 fL Normal 80-100 [facility] Comment on above: Performed By: #### 5 8410-2 #### SHILPI Siddiqui ([id number]) [facility] ([facility]) [address] [place] [address]252 Nucleated RBC/100 WBC (Bld) [Ratio] 0.0 /100 WBCs Normal 0.0-0.0 [facility] Comment on above: Performed By: #### 5 8410-2 #### SHILPI Siddiqui ([id number]) [facility] ([facility]) [id number] [place] [address]20[address] Platelets (Bld) [#/Vol] 442 x10*3/uL Normal 150-450 [facility] Comment on above: Performed By: #### 5 8410-2 #### SHILPI Siddiqui ([id number]) [facility] ([facility]) [address] [place] [address] 03870 RBC (Bld) [#/Vol] 2.86 x10*6/uL Low 4.50-5.90 [facility] Comment on above: Performed By: #### 5 8410-2 #### SHILPI Siddiqui ([id number]) [facility] ([facility]) [address] [place] [address] 14533 WBC (Bld) [#/Vol] 7.9 x10*3/uL Normal 4.4-11.3 [facility] Comment on above: Performed By: #### 5 8410-2 #### SHILPI Siddiqui ([id number]) [facility] ([facility]) [id number] [place] [address] 70324 Cobalamin (Vitamin B12) [Mas s/Vol]on 10-29-2024 Interpretation and review of laboratory results Abnormal [facility] Cobalaminson 10-29-2024 Cobalamin (Vitamin B12) [Mass/Vol] 1343 pg/mL High 211-911 [facility] Comment on above: Performed By: #### 2 132-9 #### SHILPI Siddiqui ([id number]) [facility] ([facility]) [address] [place] [address] Comprehensive metabolic 2000 panelon 10-29-2024 Albumin BCP dye [Mass/Vol] 4.4 g/dL 3.4 - 5.0 g/dL [facility] ALP [Catalytic activity/Vol] 50 U/L 33 - 136 U/L [facility] ALT With P-5'-P [Catalytic activity/Vol] 10 U/L 10 - 52 U/L [facility] Comment on above: Patients treated wit h Sulfasalazine may generate falsely decreased results for ALT. Anion gap [Moles/Vol] 12 mmol/L 10 - 2 0 mmol/L [facility] AST With P-5'-P [Catalytic activity/Vol] 17 U/L 9 - 39 U/L [facility] Bilirubin [Mass/Vol] 0.2 mg/dL 0.0 - 1 .2 mg/dL [facility] Calcium [Mass/Vol] 9.4 mg/dL 8.6 - 10. 6 mg/dL [facility] Chloride [Moles/Vol] 105 mmol/L 98 - 10 7 mmol/L [facility] CO2 [Moles/Vol] 25 mmol/L 21 - 32 mmol/L [facility] Creatinine [Mass/Vol] 1.04 mg/dL 0.50 - 1.30 mg/dL [facility] GFR/1.73 sq M.predicted among non-blacks MDRD (S/P/Bld) [Vol rate/Area] 77 mL/min/{1.73_m2} - PINF [facility] Comment on above: Calculations of regina mated GFR are performed using the 2020 CKD-EPI Study Refit equation without the race variable for the IDMS-Traceable creatinine methods. https://jasn.asnjournals.org/content/early//ASN.2020 475003 Glucose [Mass/Vol] 94 mg/dL 74 - 99 mg/dL [facility] Interpretation and review of laboratory results Normal [facility] Potassium [Moles/Vol] 4.5 mmol/L 3.5 - 5.3 mmol/L [facility] Protein [Mass/Vol] 6.8 g/dL 6.4 - 8.2 g/dL [facility] Sodium [Moles/Vol] 137 mmol/L 136 - 145 mmol/L [facility] Urea nitrogen [Mass/Vol] 22 mg/dL 6 - 23 mg/dL [facility] Albumin BCP dye [Mass/Vol] 4.4 g/dL Normal 3.4-5.0 [facility] Comment on above: Performed By: #### 2 4323-8 #### SHILPI Siddiqui ([id number]) [facility] ([facility]) [id number] [place] [address] 10868 ALP [Catalytic activity/Vol] 50 U/L Normal 33-136 [facility] Comment on above: Performed By: #### 2 4323-8 #### SHILPI Siddiqui ([id number]) [facility] ([facility]) [id number] [place] [address] 56333 ALT With P-5'-P [Catalytic activity/Vol] 10 U/L Normal 10-52 [facility] Comment on above: Result Comment: Rosangela ents treated with Sulfasalazine may generate falsely decreased results for ALT. Performed By: #### 2 4323-8 #### SHILPI Siddiqui ([id number]) [facility] ([facility]) [address] [place] [address] Anion gap [Moles/Vol] 12 mmol/L Normal 10-[address] [facility] Comment on above: Performed By: #### 2 4323-8 #### SHILPI Siddiqui ([id number]) [facility] ([facility]) [id number] [place] [address] 21234 AST With P-5'-P [Catalytic activity/Vol] 17 U/L Normal 9-39 [facility] Comment on above: Performed By: #### 2 4323-8 #### SHILPI Siddiqui ([id number]) [facility] ([facility]) [address] [place] [address] Bilirubin [Mass/Vol] 0.2 mg/dL Normal 0.0-1.2 [facility] Comment on above: Performed By: #### 2 4323-8 #### SHILPI Siddiqui ([id number]) [facility] ([facility]) [address] [place] [address] 34084 Calcium [Mass/Vol] 9.4 mg/dL Normal 8.6-10.6 [facility] Comment on above: Performed By: #### 2 4323-8 #### SHILPI Siddiqui ([id number]) [facility] ([facility]) [address] [place] [address] Chloride [Moles/Vol] 105 mmol/L Normal 98-107 [facility] Comment on above: Performed By: #### 2 4323-8 #### SHILPI Siddiqui ([id number]) [facility] ([facility]) [address] [place] [address] 23422 CO2 [Moles/Vol] 25 mmol/L Normal 21-32 [facility] Comment on above: Performed By: #### 2 4323-8 #### SHILPI Siddiqui ([id number]) [facility] ([facility]) [address] [place] [address] 33155 Creatinine [Mass/Vol] 1.04 mg/dL Normal 0.50-1.[address] [facility] Comment on above: Performed By: #### 2 4323-8 #### SHILPI Siddiqui ([id number]) [facility] ([facility]) [id number] [place] [address] 29552 Glomerular filtration rate 77 mL/min/1.73m*2 Normal >60 [facility] Comment on above: Result Comment: Calc ulations of estimated GFR are performed using the 2020 CKD-EPI Study Refit equation without the race variable for the IDMS-Traceable creatinine methods. https://jasn.asnjournals.org/content//ASN.2020 313052 Performed By: #### 2 4323-8 #### SHILPI Siddiqui ([id number]) [facility] ([facility]) [id number] [place] [address] 31018 Glucose [Mass/Vol] 94 mg/dL Normal 74-99 [facility] Comment on above: Performed By: #### 2 4323-8 #### SHILPI Siddiqui ([id number]) [facility] ([facility]) [address] [place] [address] 88420 Potassium [Moles/Vol] 4.5 mmol/L Normal 3.5-5.[address] [facility] Comment on above: Performed By: #### 2 4323-8 #### SHILPI Siddiqui ([id number]) [facility] ([facility]) [address] [place] [address] 77012 Protein [Mass/Vol] 6.8 g/dL Normal 6.4-8.2 [facility] Comment on above: Performed By: #### 2 4323-8 #### SHILPI Siddiqui ([id number]) [facility] ([facility]) [address] [place] [address] 40344 Sodium [Moles/Vol] 137 mmol/L Normal 136-145 [facility] Comment on above: Performed By: #### 2 4323-8 #### SHILPI Siddiqui ([id number]) [facility] ([facility]) [address] [place] [address] 01888 Urea nitrogen [Mass/Vol] 22 mg/dL Normal 6-23 [facility] Comment on above: Performed By: #### 2 4323-8 #### SHILPI Siddiqui ([id number]) [facility] ([facility]) [address] [place] [address] 52574 Ferritinon 10-29-2024 Ferritin [Mass/Vol] 13 ng/mL Low 20 - 300 ng/mL [facility] Ferritin [Mass/Vol] 13 ng/mL Low 20-300 [facility] Comment on above: Performed By: #### 2 276-4 #### SHILPI Siddiqui ([id number]) [facility] ([facility]) [address] [place] [address] 60300 Folateon 10-29-2024 Folate [Mass/Vol] ng/mL 5.0 - PINF ng/mL [facility] Folate [Mass/Vol] ng/mL Normal >5.0 [facility] Comment on above: Order Comment: Low < 3.4Borderline 3.4-5.0Normal >5.0Patients receiving more than 5 mg/day of biotin may have interference in test results. A sample should be taken no sooner than eight hours after previous dose. Contact the testing laboratory for additional information. Performed By: #### 2 284-8 ####SHILPI Siddiqui ([id number])[facility] ([facility])[address] [place] [address] 67498 Folate [Mass/Vol]on 10-30-19 Interpretation and review of laboratory results Normal [facility] Low <3.4 Borderline 3.4-5.0 Normal >5.0 Patients receiving more than 5 mg/day of biotin may have interference in test results. A sample should be taken no sooner than eight hours after previous dose. Contact the testing laboratory for additional information. [facility] Haptoglobinon 10-29-2024 Haptoglobin Nephelometry [Mass/Vol] 155 mg/dL 30 - 200 mg/dL [facility] Haptoglobin Nephelometry [Mass/Vol] 155 mg/dL Normal 30-200 [facility] Comment on above: Performed By: #### 4 6127-7 #### SHILPI Siddiqui ([id number]) [facility] ([facility]) [address] [place] [address] 60753 Haptoglobin Nephelometry [Ma ss/Vol]on 10-29-2024 Interpretation and review of laboratory results Normal [facility] Iron and Iron binding capaci ty panelon 10-29-2024 Iron [Mass/Vol] 13 ug/dL Low 35 - 150 ug/dL [facility] Iron binding capacity [Mass/Vol] 399 ug/dL 240 - 445 ug/dL [facility] Iron binding capacity.unsaturated [Mass/Vol] 386 ug/dL High 110 - 370 ug/dL [facility] Iron saturation [Mass fraction] 3 % Low 25 - 45 % [facility] Iron [Mass/Vol] 13 ug/dL Low 35-150 [facility] Comment on above: Performed By: #### 5 0190-8 #### SHILPI Siddiqui ([id number]) [facility] ([facility]) [address] [place] [address] 86378 Iron binding capacity [Mass/Vol] 399 ug/dL Normal 240-445 [facility] Comment on above: Performed By: #### 5 0190-8 #### SHILPI Siddiqui ([id number]) [facility] ([facility]) [address] [place] [address] 07748 Iron binding capacity.unsaturated [Mass/Vol] 386 ug/dL High 110-370 [facility] Comment on above: Performed By: #### 5 0190-8 #### SHILPI Siddiqui ([id number]) [facility] ([facility]) [address] [place] [address] 54412 Iron saturation [Mass fraction] 3 % Low 25-45 [facility] Comment on above: Performed By: #### 5 0190-8 #### SHILPI Siddiqui ([id number]) [facility] ([facility]) [address] [place] [address] 52939 No Panel Informationon 10-29 Interpretation and review of laboratory results Abnormal [facility] Work Phone: Slide RequestOrdered By: Deidre Lopez on 10-29-2024 [facility] TSHon 10-29-2024 TSH Qn 2.21 m[IU]/L [facility] TSH Qnon 10-29-2024 Interpretation and review of laboratory results Normal [facility] TSH testing is performed using different testing methodology at [facility] than at [facility]. Direct result comparisons should only be made within the same method. [facility] Thyrotropinon 10-29-2024 TSH Qn 2.21 m[IU]/L Normal 0.44-3.98 [facility] Comment on above: Order Comment: TSH t esting is performed using different testing methodology at [facility] than at [facility]. Direct result comparisons should only be made within the same method. Performed By: #### 3 016-3 #### SHILPI Siddiqui ([id number]) [facility] ([facility]) [address] [place], [place] [phone] VERAB/VERIFY ABORHon 025 ABO group Nom (Bld) O Normal [facility] Comment on above: Performed By: #### V ERAB #### SHILPI Siddiqui ([id number]) [facility] ([facility]) [address] [place], [place] [phone] D Ag Ql (Bld) Positive Normal [facility] Comment on above: Performed By: #### V ERAB #### SHILPI Siddiqui ([id number]) [facility] ([facility]) [address] [place], [place] [phone] Verify ABO/Rh Group Test (VE RAB)on 10-29-2024 ABO group Nom (Bld) O [facility] D Ag Ql (Bld) Positive [facility] Vitamin B12on 10-29-2024 Cobalamin (Vitamin B12) [Mass/Vol] 1343 pg/mL High 211 - 911 pg/mL [facility] CBC W/Diff, Automatedon 10-12 Absolute Lymph 1.77 X10 3/uL Normal 0.83-4.51 [facility] Comment on above: Performed By: #### L 100.0100 ####[facility] [address], [address] Absolute Neut 2.9 X10 3/uL Normal 2.0-7.7 [facility] Comment on above: Performed By: #### L 100.0100 ####[facility] [address] [place], [address] Basophils/100 WBC (Bld) 0.2 % Normal 0-1 [facility] Comment on above: Performed By: #### L 100.0100 ####[facility] [address] [place], [address] Eosinophils/100 WBC (Bld) 5.2 % High 0-5 [facility] Comment on above: Performed By: #### L 100.0100 ####[facility] [address] [place], [address] Erythrocyte distribution width (RBC) [Ratio] 19.3 % High 11.6-14.6 [facility] Comment on above: Performed By: #### L 100.0100 ####[facility] [address] [place], [address] Hematocrit (Bld) [Volume fraction] 22.6 % Low 40-54 [facility] Comment on above: Performed By: #### L 100.0100 ####[facility] [address] [place], [address] Hemoglobin (Bld) [Mass/Vol] 6.8 g/dL Low 13.0-16.5 [facility] Comment on above: Performed By: #### L 100.0100 ####[facility] [address] [place], [address] IG% 0.200 Normal 0.0-0.9 [facility] Comment on above: Result Comment: IG% - Immature Granulocytes (promyelocytes, myelocytes andmetamyelocytes) > 1% indicates that a LEFT SHIFT is Present. Performed By: #### L 100.0100 ####[facility] [address] [place], [address] Lymphocytes/100 WBC (Bld) 32.9 % Normal 19-41 [facility] Comment on above: Performed By: #### L 100.0100 ####[facility] [address] [place], [address] MCH (RBC) [Entitic mass] 23.9 pg Low 27.0-32.0 [facility] Comment on above: Performed By: #### L 100.0100 ####[facility] [address] [place], [address] MCHC (RBC) [Mass/Vol] 30.1 g/dL Low 32-36 [facility] Comment on above: Performed By: #### L 100.0100 ####[facility] [address] [place], [address] MCV (RBC) [Entitic vol] 79.6 fL Low 80-94 [facility] Comment on above: Performed By: #### L 100.0100 ####[facility] [address] [place], [address] Monocytes/100 WBC (Bld) 8.2 % Normal 0-10 [facility] Comment on above: Performed By: #### L 100.0100 ####[facility] [address] [place], [address] Neutrophils/100 WBC (Bld) 53.3 % Normal 47-70 [facility] Comment on above: Performed By: #### L 100.0100 ####[facility] [address] [place], [address] Nucleated RBC (Bld) [#/Vol] 0 10*3/uL Normal 0-5 [facility] Comment on above: Performed By: #### L 100.0100 ####[facility] [address] [place], [address] Platelet mean volume (Bld) [Entitic vol] 9.1 fL Normal 6.2-12.0 [facility] Comment on above: Performed By: #### L 100.0100 ####[facility] [address] [place], [address] Platelets (Bld) [#/Vol] 455 10*3/uL High 150-450 [facility] Comment on above: Performed By: #### L 100.0100 ####[facility] [address] [place], [address] RBC (Bld) [#/Vol] 2.84 10*6/uL Low 4.6-6.2 [facility] Comment on above: Performed By: #### L 100.0100 ####[facility] [address] [place], [address] RDW SD 55.8 fl High 35.1-43.9 [facility] Comment on above: Performed By: #### L 100.0100 ####[facility] [address] [place], [address] WBC (Bld) [#/Vol] 5.4 10*3/uL Normal 4.4-11.0 [facility] Comment on above: Performed By: #### L 100.0100 ####[facility] [address] [place], [address] Abd Aortic/IVC Duplex scanon 08-17-2024 Abd Aortic/IVC Duplex scan Normal [facility] Lower Ext Art Exam w/ Exerci dhaval 08-17-2024 Lower Ext Art Exam w/ Exercise Normal [facility] MR/BMS.BVSon 07-31-2024 MR/BMS.BVS Normal [facility] Office Visit Reporton 2024 Office Visit Report Normal [facility] Pulmonary Visit Reporton Pulmonary Visit Report Normal [facility] Low Dose CT Lung Screeningon 07-24-[address] Lung Screening Normal [facility] Gastroenterology Visit Repor ton 07-23-2024 Gastroenterology Visit Report Normal [facility] HH, Hemoglobin AND Hematocri ton 07-23-2024 Hematocrit (Bld) [Volume fraction] 31.9 % Low 40-54 [facility] Comment on above: Performed By: #### L 100.0600 ####[facility] [address] [place], [address] Hemoglobin (Bld) [Mass/Vol] 10.4 g/dL Low 13.0-16.5 [facility] Comment on above: Performed By: #### L 100.0600 ####[facility] [address] [place], [address] Oncology Visit Reporton 07-12 Oncology Visit Report Normal [facility] Basic Metabolic Profile (BMP )on 07-11-2024 BUN Normal 4-19 [facility] Comment on above: Result Comment: Canc elled via OM: Order cancelled - Patient discharged Performed By: #### L 100.0100, L500.2500 ####[facility] [address] [place], [address] BUN/CRE Normal 10-20 [facility] Comment on above: Result Comment: Canc elled via OM: Order cancelled - Patient discharged Performed By: #### L 100.0100, L500.2500 ####[facility] [address] [place], [address] Calcium Normal 7.6-11.0 [facility] Comment on above: Result Comment: Canc elled via OM: Order cancelled - Patient discharged Performed By: #### L 100.0100, L500.2500 ####[facility] [address] [place], [address] CL Normal 98-108 [facility] Comment on above: Result Comment: Canc elled via OM: Order cancelled - Patient discharged Performed By: #### L 100.0100, L500.2500 ####[facility] [address] [place], [address] CO2 Normal 21.0-32.0 [facility] Comment on above: Result Comment: Canc elled via OM: Order cancelled - Patient discharged Performed By: #### L 100.0100, L500.2500 ####[facility] [address] [place], [address] CREAT,SERUM Normal 0.70-1.20 [facility] Comment on above: Result Comment: Canc elled via OM: Order cancelled - Patient discharged Performed By: #### L 100.0100, L500.2500 ####[facility] [address] [place], [address] eGFR Normal >60 [facility] Comment on above: Result Comment: Canc elled via OM: Order cancelled - Patient discharged Performed By: #### L 100.0100, L500.2500 ####[facility] [address] [place], [address] GAP Normal 5-15 [facility] Comment on above: Result Comment: Canc elled via OM: Order cancelled - Patient discharged Performed By: #### L 100.0100, L500.2500 ####[facility] [address] [place], [address] GLU Normal 70-99 [facility] Comment on above: Result Comment: Canc elled via OM: Order cancelled - Patient discharged Performed By: #### L 100.0100, L500.2500 ####[facility] [address] [place], [address] Potassium Normal 3.3-5.1 [facility] Comment on above: Result Comment: Canc elled via OM: Order cancelled - Patient discharged Performed By: #### L 100.0100, L500.2500 ####[facility] [address] [place], [address] Basic Metabolic Profile (BMP) Normal 133-145 [facility] Comment on above: Result Comment: Canc elled via OM: Order cancelled - Patient discharged Performed By: #### L 100.0100, L500.2500 ####[facility] [address] [place], [address] CBC W/Diff, Automatedon 05-3 Absolute Neut Normal 2.0-7.7 [facility] Comment on above: Result Comment: Canc elled via OM: Order cancelled - Patient discharged Performed By: #### L 100.0100, L500.2500 ####[facility] [address] [place], [address] HCT Normal 40-54 [facility] Comment on above: Result Comment: Canc elled via OM: Order cancelled - Patient discharged Performed By: #### L 100.0100, L500.2500 ####[facility] [address] [place], [address] HGB Normal 13.0-16.5 [facility] Comment on above: Result Comment: Canc elled via OM: Order cancelled - Patient discharged Performed By: #### L 100.0100, L500.2500 ####[facility] [address] [place], [address] MCH Normal 27.0-32.0 [facility] Comment on above: Result Comment: Canc elled via OM: Order cancelled - Patient discharged Performed By: #### L 100.0100, L500.2500 ####[facility] [address] [place], [address] MCHC Normal 32-36 [facility] Comment on above: Result Comment: Canc elled via OM: Order cancelled - Patient discharged Performed By: #### L 100.0100, L500.2500 ####[facility] [address] [place], [address] MCV Normal 80-94 [facility] Comment on above: Result Comment: Canc elled via OM: Order cancelled - Patient discharged Performed By: #### L 100.0100, L500.2500 ####[facility] [address] [place], [address] NEUT% Normal 47-70 [facility] Comment on above: Result Comment: Canc elled via OM: Order cancelled - Patient discharged Performed By: #### L 100.0100, L500.2500 ####[facility] [address] [place], [address] PLT Normal 150-450 [facility] Comment on above: Result Comment: Canc elled via OM: Order cancelled - Patient discharged Performed By: #### L 100.0100, L500.2500 ####[facility] [address] [place], [address] RBC Normal 4.6-6.2 [facility] Comment on above: Result Comment: Canc elled via OM: Order cancelled - Patient discharged Performed By: #### L 100.0100, L500.2500 ####[facility] [address] [place], [address] RDW CV Normal 11.6-14.6 [facility] Comment on above: Result Comment: Canc elled via OM: Order cancelled - Patient discharged Performed By: #### L 100.0100, L500.2500 ####[facility] [address] [place], [address] RDW SD Normal 35.1-43.9 [facility] Comment on above: Result Comment: Canc elled via OM: Order cancelled - Patient discharged Performed By: #### L 100.0100, L500.2500 ####[facility] [address] [place], [address] WBC Normal 4.4-11.0 [facility] Comment on above: Result Comment: Canc elled via OM: Order cancelled - Patient discharged Performed By: #### L 100.0100, L500.2500 ####[facility] [address] [place], [address] Basic Metabolic Profile (BMP )on 07-10-2024 BUN Normal 4-19 [facility] Comment on above: Result Comment: Canc elled via OM: Order cancelled - Patient discharged Performed By: #### L 500.2500, L100.0100 ####[facility] [address] [place], [address] BUN/CRE Normal 10-20 [facility] Comment on above: Result Comment: Canc elled via OM: Order cancelled - Patient discharged Performed By: #### L 500.2500, L100.0100 ####[facility] [address] [place], [address] Calcium Normal 7.6-11.0 [facility] Comment on above: Result Comment: Canc elled via OM: Order cancelled - Patient discharged Performed By: #### L 500.2500, L100.0100 ####[facility] [address] [place], [address] CL Normal 98-108 [facility] Comment on above: Result Comment: Canc elled via OM: Order cancelled - Patient discharged Performed By: #### L 500.2500, L100.0100 ####[facility] [address] [place], [address] CO2 Normal 21.0-32.0 [facility] Comment on above: Result Comment: Canc elled via OM: Order cancelled - Patient discharged Performed By: #### L 500.2500, L100.0100 ####[facility] [address] [place], [address] CREAT,SERUM Normal 0.70-1.20 [facility] Comment on above: Result Comment: Canc elled via OM: Order cancelled - Patient discharged Performed By: #### L 500.2500, L100.0100 ####[facility] [address] [place], [address] eGFR Normal >60 [facility] Comment on above: Result Comment: Canc elled via OM: Order cancelled - Patient discharged Performed By: #### L 500.2500, L100.0100 ####[facility] [address] [place], [address] GAP Normal 5-15 [facility] Comment on above: Result Comment: Canc elled via OM: Order cancelled - Patient discharged Performed By: #### L 500.2500, L100.0100 ####[facility] [address] [place], [address] GLU Normal 70-99 [facility] Comment on above: Result Comment: Canc elled via OM: Order cancelled - Patient discharged Performed By: #### L 500.2500, L100.0100 ####[facility] [address] [place], [address] Potassium Normal 3.3-5.1 [facility] Comment on above: Result Comment: Canc elled via OM: Order cancelled - Patient discharged Performed By: #### L 500.2500, L100.0100 ####[facility] [address] [place], [address] Basic Metabolic Profile (BMP) Normal 133-145 [facility] Comment on above: Result Comment: Canc elled via OM: Order cancelled - Patient discharged Performed By: #### L 500.2500, L100.0100 ####[facility] [address] [place], [address] CBC W/Diff, Automatedon 05-3 0-2024 Absolute Neut Normal 2.0-7.7 [facility] Comment on above: Result Comment: Canc elled via OM: Order cancelled - Patient discharged Performed By: #### L 500.2500, L100.0100 ####[facility] [address] [place], [address] HCT Normal 40-54 [facility] Comment on above: Result Comment: Canc elled via OM: Order cancelled - Patient discharged Performed By: #### L 500.2500, L100.0100 ####[facility] [address] [place], [address] HGB Normal 13.0-16.5 [facility] Comment on above: Result Comment: Canc elled via OM: Order cancelled - Patient discharged Performed By: #### L 500.2500, L100.0100 ####[facility] [address] [place], [address] MCH Normal 27.0-32.0 [facility] Comment on above: Result Comment: Canc elled via OM: Order cancelled - Patient discharged Performed By: #### L 500.2500, L100.0100 ####[facility] [address] [place], [address] MCHC Normal 32-36 [facility] Comment on above: Result Comment: Canc elled via OM: Order cancelled - Patient discharged Performed By: #### L 500.2500, L100.0100 ####[facility] [address] [place], [address] MCV Normal 80-94 [facility] Comment on above: Result Comment: Canc elled via OM: Order cancelled - Patient discharged Performed By: #### L 500.2500, L100.0100 ####[facility] [address] [place], [address] NEUT% Normal 47-70 [facility] Comment on above: Result Comment: Canc elled via OM: Order cancelled - Patient discharged Performed By: #### L 500.2500, L100.0100 ####[facility] [address] [place], [address] PLT Normal 150-450 [facility] Comment on above: Result Comment: Canc elled via OM: Order cancelled - Patient discharged Performed By: #### L 500.2500, L100.0100 ####[facility] [address] [place], [address] RBC Normal 4.6-6.2 [facility] Comment on above: Result Comment: Canc elled via OM: Order cancelled - Patient discharged Performed By: #### L 500.2500, L100.0100 ####[facility] [address] [place], [address] RDW CV Normal 11.6-14.6 [facility] Comment on above: Result Comment: Canc elled via OM: Order cancelled - Patient discharged Performed By: #### L 500.2500, L100.0100 ####[facility] [address] [place], [address] RDW SD Normal 35.1-43.9 [facility] Comment on above: Result Comment: Canc elled via OM: Order cancelled - Patient discharged Performed By: #### L 500.2500, L100.0100 ####[facility] [address] [place], [address] WBC Normal 4.4-11.0 [facility] Comment on above: Result Comment: Canc elled via OM: Order cancelled - Patient discharged Performed By: #### L 500.2500, L100.0100 ####[facility] [address] [place], [address] 12 Lead EKGon 07-09-2024 12 Lead EKG Normal [facility] Basic Metabolic Profile (BMP )on 07-09-2024 BUN/CRE 16.7 RATIO Normal 10-20 [facility] Comment on above: Performed By: #### L 100.0100, L500.2500, L501.2300, L501.5200 ####[facility] [address] [place], [address] Calcium [Mass/Vol] 9.2 mg/dL Normal 7.6-11.0 [facility] Comment on above: Performed By: #### L 100.0100, L500.2500, L501.2300, L501.5200 ####[facility] [address] [place], [address] Chloride [Moles/Vol] 108 mmol/L Normal 98-108 [facility] Comment on above: Performed By: #### L 100.0100, L500.2500, L501.2300, L501.5200 ####[facility] [address] [place], [address] CO2 [Moles/Vol] 21.5 mmol/L Normal 21.0-32.0 [facility] Comment on above: Performed By: #### L 100.0100, L500.2500, L501.2300, L501.5200 ####[facility] [address] [place], [address] Creatinine [Mass/Vol] 0.98 mg/dL Normal 0.70-1.20 [facility] Comment on above: Performed By: #### L 100.0100, L500.2500, L501.2300, L501.5200 ####[facility] [address] [place], [address] ECRCL 53.27 ml/min Normal 50-250 [facility] Comment on above: Performed By: #### L 100.0100, L500.2500, L501.2300, L501.5200 ####[facility] [address] [place], [address] GAP 12 Normal 5-15 [facility] Comment on above: Performed By: #### L 100.0100, L500.2500, L501.2300, L501.5200 ####[facility] [address] [place], [address] GFR/1.73 sq M.predicted among non-blacks MDRD (S/P/Bld) [Vol rate/Area] 83 mL/min/{1.73_m2} Normal >60 [facility] Comment on above: Result Comment: mL/m in/1.73m2 CKD-EPI Creatinine Equation (2020) Performed By: #### L 100.0100, L500.2500, L501.2300, L501.5200 ####[facility] [address] [place], [address] Glucose [Mass/Vol] 70 mg/dL Normal 70-99 [facility] Comment on above: Performed By: #### L 100.0100, L500.2500, L501.2300, L501.5200 ####[facility] [address] [place], [address] Potassium [Moles/Vol] 3.8 mmol/L Normal 3.3-5.1 [facility] Comment on above: Performed By: #### L 100.0100, L500.2500, L501.2300, L501.5200 ####[facility] [address] [place], [address] Sodium [Moles/Vol] 142 mmol/L Normal 133-145 [facility] Comment on above: Performed By: #### L 100.0100, L500.2500, L501.2300, L501.5200 ####[facility] [address] [place], [address] Urea nitrogen [Mass/Vol] 16 mg/dL Normal 4-19 [facility] Comment on above: Performed By: #### L 100.0100, L500.2500, L501.2300, L501.5200 ####[facility] [address] [place], [address] CBC W/Diff, Automatedon 05-2 OVALOCYTE RARE Normal [facility] Comment on above: Performed By: #### L 100.0100, L500.2500, L501.2300, L501.5200 ####[facility] [address] [place], [address] POLYCHROMASIA 1+ Normal [facility] Comment on above: Performed By: #### L 100.0100, L500.2500, L501.2300, L501.5200 ####[facility] [address] [place], [address] Anisocytosis Ql (Bld) 3+ Normal [facility] Comment on above: Performed By: #### L 100.0100, L500.2500, L501.2300, L501.5200 ####[facility] [address] [place], [address] MACROCYTOSIS 1+ Normal [facility] Comment on above: Performed By: #### L 100.0100, L500.2500, L501.2300, L501.5200 ####[facility] [address] [place], [address] MICROCYTIC 2+ Normal [facility] Comment on above: Performed By: #### L 100.0100, L500.2500, L501.2300, L501.5200 ####[facility] [address] [place], [address] SMEAR COMMENT SCANNED Normal [facility] Comment on above: Performed By: #### L 100.0100, L500.2500, L501.2300, L501.5200 ####[facility] [address] [place], [address] Consultation - Surgicalon Consultation - Surgical Normal [facility] EGD Reporton 07-09-2024 EGD Report Normal [facility] Immunohistochemical Stainson 07-09-2024 Immunohistochemical Stains Normal [facility] Comment on above: Performed By: #### P IMHI ####[facility] [address] [place], [address] MR/POSTOP.ANEon 07-09-2024 MR/POSTOP.ANE Normal [facility] MR/MDDVGDWE0pk 07-09-2024 MR/POSTOPAN2 Normal [facility] Magnesiumon 07-09-2024 Magnesium [Mass/Vol] 2.3 mg/dL High 1.5-2.2 [facility] Comment on above: Performed By: #### L 100.0100, L500.2500, L501.2300, L501.5200 ####[facility] [address] [place], [address] Phosphoruson 07-09-2024 Phosphate [Mass/Vol] 4.9 mg/dL High 2.7-4.5 [facility] Comment on above: Performed By: #### L 100.0100, L500.2500, L501.2300, L501.5200 ####[facility] [address] [place], [address] Basic Metabolic Profile (BMP )on 07-08-2024 BUN/CRE 22.1 RATIO High 10-20 [facility] Comment on above: Performed By: #### L 500.2500, L100.0100 ####[facility] [address] [place], [address] Calcium [Mass/Vol] 8.9 mg/dL Normal 7.6-11.0 [facility] Comment on above: Performed By: #### L 500.2500, L100.0100 ####[facility] [address] [place], [address] Chloride [Moles/Vol] 107 mmol/L Normal 98-108 [facility] Comment on above: Performed By: #### L 500.2500, L100.0100 ####[facility] [address] [place], [address] CO2 [Moles/Vol] 21.0 mmol/L Normal 21.0-32.0 [facility] Comment on above: Performed By: #### L 500.2500, L100.0100 ####[facility] [address] [place], [address] Creatinine [Mass/Vol] 0.86 mg/dL Normal 0.70-1.20 [facility] Comment on above: Performed By: #### L 500.2500, L100.0100 ####[facility] [address] [place], [address] ECRCL 60.71 ml/min Normal 50-250 [facility] Comment on above: Performed By: #### L 500.2500, L100.0100 ####[facility] [address] [place], [address] GAP 10 Normal 5-15 [facility] Comment on above: Performed By: #### L 500.2500, L100.0100 ####[facility] [address] [place], [address] GFR/1.73 sq M.predicted among non-blacks MDRD (S/P/Bld) [Vol rate/Area] 93 mL/min/{1.73_m2} Normal >60 [facility] Comment on above: Result Comment: mL/m in/1.73m2 CKD-EPI Creatinine Equation (2020) Performed By: #### L 500.2500, L100.0100 ####[facility] [address] [place], [address] Glucose [Mass/Vol] 96 mg/dL Normal 70-99 [facility] Comment on above: Performed By: #### L 500.2500, L100.0100 ####[facility] [address] [place], [address] Potassium [Moles/Vol] 4.1 mmol/L Normal 3.3-5.1 [facility] Comment on above: Performed By: #### L 500.2500, L100.0100 ####[facility] [address] [place], [address] Sodium [Moles/Vol] 138 mmol/L Normal 133-145 [facility] Comment on above: Performed By: #### L 500.2500, L100.0100 ####[facility] [address] [place], [address] Urea nitrogen [Mass/Vol] 19 mg/dL Normal 4-19 [facility] Comment on above: Performed By: #### L 500.2500, L100.0100 ####[facility] [address] [place], [address] CBC W/Diff, Automatedon - Anisocytosis Ql (Bld) 1+ Normal [facility] Comment on above: Performed By: #### L 500.2500, L100.0100 ####[facility] [address] [place], [address] Consultation - Oncology IPon 07-08-2024 Consultation - Oncology IP [facility] MR/CON.PCM.GIon 07-08-2024 MR/CON.PCM.GI [facility] BRCon 07-07-2024 RC Normal [facility] Comment on above: Result Comment: [id number] OP RC TRANSFUSED 07/08/24 [id number] OP RC TRANSFUSED 07/08/24 [id number] OP RC TRANSFUSED 07/07/242107 Performed By: #### B RC ####[facility] [address] [place], [address] Basic Metabolic Profile (BMP )on 07-07-2024 BUN/CRE 20.9 RATIO High 10-20 [facility] Comment on above: Performed By: #### L 300.4310, BTS, L500.2500, L100.0100, L300.3900 ####[facility] [address] [place], [address] Calcium [Mass/Vol] 8.8 mg/dL Normal 7.6-11.0 [facility] Comment on above: Performed By: #### L 300.4310, BTS, L500.2500, L100.0100, L300.3900 ####[facility] [address] [place], [address] Chloride [Moles/Vol] 109 mmol/L High 98-108 [facility] Comment on above: Performed By: #### L 300.4310, BTS, L500.2500, L100.0100, L300.3900 ####[facility] [address] [place], [address] CO2 [Moles/Vol] 21.0 mmol/L Normal 21.0-32.0 [facility] Comment on above: Performed By: #### L 300.4310, BTS, L500.2500, L100.0100, L300.3900 ####[facility] [address] [place], [address] Creatinine [Mass/Vol] 1.01 mg/dL Normal 0.70-1.20 [facility] Comment on above: Performed By: #### L 300.4310, BTS, L500.2500, L100.0100, L300.3900 ####[facility] [address] [place], [address] ECRCL 52.22 ml/min Normal 50-250 [facility] Comment on above: Performed By: #### L 300.4310, BTS, L500.2500, L100.0100, L300.3900 ####[facility] [address] [place], [address] GAP 9 Normal 5-15 [facility] Comment on above: Performed By: #### L 300.4310, BTS, L500.2500, L100.0100, L300.3900 ####[facility] [address] [place], [address] GFR/1.73 sq M.predicted among non-blacks MDRD (S/P/Bld) [Vol rate/Area] 80 mL/min/{1.73_m2} Normal >60 [facility] Comment on above: Result Comment: mL/m in/1.73m2 CKD-EPI Creatinine Equation (2020) Performed By: #### L 300.4310, BTS, L500.2500, L100.0100, L300.3900 ####[facility] [address] [place], [address] Glucose [Mass/Vol] 94 mg/dL Normal 70-99 [facility] Comment on above: Performed By: #### L 300.4310, BTS, L500.2500, L100.0100, L300.3900 ####[facility] [address] [place], [address] Potassium [Moles/Vol] 4.1 mmol/L Normal 3.3-5.1 [facility] Comment on above: Performed By: #### L 300.4310, BTS, L500.2500, L100.0100, L300.3900 ####[facility] [address] [place], [address] Sodium [Moles/Vol] 139 mmol/L Normal 133-145 [facility] Comment on above: Performed By: #### L 300.4310, BTS, L500.2500, L100.0100, L300.3900 ####[facility] [address] [place], [address] Urea nitrogen [Mass/Vol] 21 mg/dL High 4-19 [facility] Comment on above: Performed By: #### L 300.4310, BTS, L500.2500, L100.0100, L300.3900 ####[facility] [address] [place], [address] CBC W/Diff, Automatedon 05-2 ACANTHOCYTE 1+ Normal [facility] Comment on above: Performed By: #### L 300.4310, BTS, L500.2500, L100.0100, L300.3900 ####[facility] [address] [place], [address] Anisocytosis Ql (Bld) 3+ Normal [facility] Comment on above: Performed By: #### L 300.4310, BTS, L500.2500, L100.0100, L300.3900 ####[facility] [address] [place], [address] OVALOCYTE 1+ Normal [facility] Comment on above: Performed By: #### L 300.4310, BTS, L500.2500, L100.0100, L300.3900 ####[facility] [address] [place], [address] POLYCHROMASIA 1+ Normal [facility] Comment on above: Performed By: #### L 300.4310, BTS, L500.2500, L100.0100, L300.3900 ####[facility] [address] [place], [address] TEAR DROP 1+ Normal [facility] Comment on above: Performed By: #### L 300.4310, BTS, L500.2500, L100.0100, L300.3900 ####[facility] [address] [place], [address] PLT EST A Normal ADEQ [facility] Comment on above: Performed By: #### L 300.4310, BTS, L500.2500, L100.0100, L300.3900 ####[facility] [address] [place], [place], [address] Anisocytosis Ql (Bld) 3+ Normal [facility] Comment on above: Order Comment: NELLA LU ORDERED CBCRACHEL BERNABE ORDERED A CBCDLEFT MESSAGE TO RETURN CALL FOR CRITICAL RESULT 1225 SLCRITICAL VALUE CALLED TO LMCCLAIN AT [id number]/ 1246 Shelley Romero.RESULTS READ BACK BY SAME. Performed By: #### L 100.0100 ####[facility] [address] [place], [place], [address] POLYCHROMASIA 2+ Normal [facility] Comment on above: Order Comment: NELLA LU ORDERED CBCRACHEL BERNABE ORDERED A CBCDLEFT MESSAGE TO RETURN CALL FOR CRITICAL RESULT 1225 SLCRITICAL VALUE CALLED TO LMCCLAIN AT [id number]/ 1246 Shelley Romero.RESULTS READ BACK BY SAME. Performed By: #### L 100.0100 ####[facility] [address] [place], [place], [address] SMEAR COMMENT SCANNED Normal [facility] Comment on above: Order Comment: NELLA LU ORDERED CBCRACHEL BERNABE ORDERED A CBCDLEFT MESSAGE TO RETURN CALL FOR CRITICAL RESULT 1225 SLCRITICAL VALUE CALLED TO LMCCLAIN AT [id number]// 1246 Shelley Romero.RESULTS READ BACK BY SAME. Performed By: #### L 100.0100 ####[facility] [address] [place], [place], [address] CTA Abd/Pelvis W/WO Contrast on 07-07-2024 CTA Abd/Pelvis W/WO Contrast Normal [facility] Comprehensive Metabolic Prof ilon 07-07-2024 Albumin [Mass/Vol] 3.6 g/dL Normal 3.4-4.8 [facility] Comment on above: Performed By: #### L 500.4050 ####[facility] [address] [place], [address] Albumin/Globulin [Mass ratio] 1.6 {ratio} Normal 0.9-2.4 [facility] Comment on above: Performed By: #### L 500.4050 ####[facility] [address] [place], [address] ALK PHOS 72 U/L Normal 40-129 [facility] Comment on above: Performed By: #### L 500.4050 ####[facility] [address] [place], [address] ALT [Catalytic activity/Vol] 24 U/L Normal <=46 [facility] Comment on above: Performed By: #### L 500.4050 ####[facility] [address] [place], [address] AST [Catalytic activity/Vol] 25 U/L Normal <=37 [facility] Comment on above: Performed By: #### L 500.4050 ####[facility] [address] [place], [address] BUN/CRE 22.1 RATIO High 10-20 [facility] Comment on above: Performed By: #### L 500.4050 ####[facility] [address] [place], [address] Calcium [Mass/Vol] 9.0 mg/dL Normal 7.6-11.0 [facility] Comment on above: Performed By: #### L 500.4050 ####[facility] [address] [place], [address] Chloride [Moles/Vol] 109 mmol/L High 98-108 [facility] Comment on above: Performed By: #### L 500.4050 ####[facility] [facility] [address] [place], [address] CO2 [Moles/Vol] 21.5 mmol/L Normal 21.0-32.0 [facility] Comment on above: Performed By: #### L 500.4050 ####[facility] [address] [place], [address] Creatinine [Mass/Vol] 0.95 mg/dL Normal 0.70-1.20 [facility] Comment on above: Performed By: #### L 500.4050 ####[facility] [address] [place], [address] GAP 10 Normal 5-15 [facility] Comment on above: Performed By: #### L 500.4050 ####[facility] [address] [place], [address] GFR/1.73 sq M.predicted among non-blacks MDRD (S/P/Bld) [Vol rate/Area] 86 mL/min/{1.73_m2} Normal >60 [facility] Comment on above: Result Comment: mL/m in/1.73m2 CKD-EPI Creatinine Equation (2020) Performed By: #### L 500.4050 ####[facility] [address] [place], [address] Globulin (S) [Mass/Vol] 2.3 g/dL Normal 2.2-4.2 [facility] Comment on above: Performed By: #### L 500.4050 ####[facility] [address] [place], [address] Glucose [Mass/Vol] 105 mg/dL High 70-99 [facility] Comment on above: Performed By: #### L 500.4050 ####[facility] [address] [place], [address] Potassium [Moles/Vol] 3.9 mmol/L Normal 3.3-5.1 [facility] Comment on above: Performed By: #### L 500.4050 ####[facility] [address] [place], [address] Sodium [Moles/Vol] 141 mmol/L Normal 133-145 [facility] Comment on above: Performed By: #### L 500.4050 ####[facility] [address] [place], [address] T BILI < 0.15 Normal 0.00-1.30 [facility] Comment on above: Performed By: #### L 500.4050 ####[facility] [address] [place], [address] T PROT 6.0 g/dL Normal 5.9-8.4 [facility] Comment on above: Performed By: #### L 500.4050 ####[facility] [address] [place], [address] Urea nitrogen [Mass/Vol] 21 mg/dL High 4-19 [facility] Comment on above: Performed By: #### L 500.4050 ####[facility] [address] [place], [address] Emergency Department Summary on 07-07-2024 Emergency Department Summary Normal [facility] H AND P Exam - Hospitaliston 07-07-2024 H&P Exam - Hospitalist Normal [facility] [place] Iron+Iron Binding Capacityon 07-07-2024 Iron [Mass/Vol] 63 ug/dL Low 65-175 [facility] Comment on above: Performed By: #### L 500.3400, L503.6030 ####[facility] [address] [place], [address] IRON SATURATION 22.0 Normal 9-55 [facility] Comment on above: Performed By: #### L 500.3400, L503.6030 ####[facility] [address] [place], [address] TIBC 288 ug/dL Normal 250-450 [facility] Comment on above: Performed By: #### L 500.3400, L503.6030 ####[facility] [address] [place], [address] UIBC 225 ug/dL Low 228-428 [facility] Comment on above: Performed By: #### L 500.3400, L503.6030 ####[facility] [address] [place], [address] Liver Profileon 07-07-2024 Albumin [Mass/Vol] 3.9 g/dL Normal 3.4-4.8 [facility] Comment on above: Performed By: #### L 500.3400, L503.6030 ####[facility] [address] [place], [address] ALK PHOS 66 U/L Normal 40-129 [facility] Comment on above: Performed By: #### L 500.3400, L503.6030 ####[facility] [address] [place], [address] ALT [Catalytic activity/Vol] 22 U/L Normal <=46 [facility] Comment on above: Performed By: #### L 500.3400, L503.6030 ####[facility] [address] [place], [address] AST [Catalytic activity/Vol] 24 U/L Normal <=37 [facility] Comment on above: Performed By: #### L 500.3400, L503.6030 ####[facility] [address] [place], [address] D BILI < 0.08 Normal 0.00-0.30 [facility] Comment on above: Performed By: #### L 500.3400, L503.6030 ####[facility] [address] [place], [address] Globulin (S) [Mass/Vol] 2.2 g/dL Normal 2.2-4.2 [facility] Comment on above: Performed By: #### L 500.3400, L503.6030 ####[facility] [address] [place], [address] T BILI < 0.15 Normal 0.00-1.30 [facility] Comment on above: Performed By: #### L 500.3400, L503.6030 ####[facility] [address] [place], [address] T PROT 6.1 g/dL Normal 5.9-8.4 [facility] Comment on above: Performed By: #### L 500.3400, L503.6030 ####[facility] [address] [place], [address] Partial Thromboplast Timeon 07-07-2024 aPTT Coag (Bld) [Time] 32.8 s Normal 24.1-36.2 [facility] [place] Comment on above: Performed By: #### L 300.4310, BTS, L500.2500, L100.0100, L300.3900 ####[facility] [address] [place], [address] Prothrombin Time w/INRon INR Coag (PPP) [Relative time] 1.1 {INR} Normal [facility] Comment on above: Performed By: #### L 300.4310, BTS, L500.2500, L100.0100, L300.3900 ####[facility] [address] [place], [address] PT Coag (PPP) [Time] 14.3 s Normal 11.7-14.9 [facility] Comment on above: Performed By: #### L 300.4310, BTS, L500.2500, L100.0100, L300.3900 ####[facility] [address] [place], [address] Stool Occult Blood iFOBon STOB Positive Normal [facility] Comment on above: Performed By: #### M 100.7900 ####[facility] [address] [place], [address] Type AND Screenon 07-07-2024 Ab SCREEN GEL Negative Normal [facility] Comment on above: Order Comment: A Performed By: #### L 300.4310, BTS, L500.2500, L100.0100, L300.3900 ####[facility] [address] [place], [address] Basic Metabolic Profile (BMP )on 06-25-2024 BUN/CRE 20.3 RATIO High 11-30 [facility] Comment on above: Performed By: #### L 500.2500, L100.0100 ####[facility] [address] [place], [address] Calcium [Mass/Vol] 9.2 mg/dL Normal 7.6-11.0 [facility] Comment on above: Performed By: #### L 500.2500, L100.0100 ####[facility] [address] [place], [address] Chloride [Moles/Vol] 102 mmol/L Normal 98-108 [facility] Comment on above: Performed By: #### L 500.2500, L100.0100 ####[facility] [address] [place], [address] CO2 [Moles/Vol] 20.7 mmol/L Low 21.0-32.0 [facility] Comment on above: Performed By: #### L 500.2500, L100.0100 ####[facility] [address] [place], [address] Creatinine [Mass/Vol] 0.83 mg/dL Normal 0.70-1.20 [facility] Comment on above: Performed By: #### L 500.2500, L100.0100 ####[facility] [address] [place], [address] ECRCL 62.70 ml/min Normal 50-250 [facility] Comment on above: Performed By: #### L 500.2500, L100.0100 ####[facility] [address] [place], [address] GAP 12 Normal 5-15 [facility] Comment on above: Performed By: #### L 500.2500, L100.0100 ####[facility] [address] [place], [address] GFR/1.73 sq M.predicted among non-blacks MDRD (S/P/Bld) [Vol rate/Area] 94 mL/min/{1.73_m2} Normal >60 [facility] Comment on above: Result Comment: mL/m in/1.73m2 CKD-EPI Creatinine Equation (2020) Performed By: #### L 500.2500, L100.0100 ####[facility] [address] [place], [address] Glucose [Mass/Vol] 110 mg/dL High 70-99 [facility] Comment on above: Performed By: #### L 500.2500, L100.0100 ####[facility] [address] [place], [address] Potassium [Moles/Vol] 3.9 mmol/L Normal 3.3-5.1 [facility] Comment on above: Result Comment: Hemo lysis present, Results??could be affected.?? Performed By: #### L 500.2500, L100.0100 ####[facility] [address] [place], [address] Sodium [Moles/Vol] 135 mmol/L Normal 133-145 [facility] Comment on above: Performed By: #### L 500.2500, L100.0100 ####[facility] [address] [place], [address] Urea nitrogen [Mass/Vol] 17 mg/dL Normal 4-19 [facility] Comment on above: Performed By: #### L 500.2500, L100.0100 ####[facility] [address] [place], [address] CBC W/Diff, Automatedon 05-1 5-2024 Absolute Lymph 1.43 X10 3/uL Normal 0.83-4.51 [facility] Comment on above: Performed By: #### L 500.2500, L100.0100 ####[facility] [address] [place], [address] Absolute Neut 8.2 X10 3/uL High 2.0-7.7 [facility] Comment on above: Performed By: #### L 500.2500, L100.0100 ####[facility] [address] [place], [address] Basophils/100 WBC (Bld) 0.3 % Normal 0-1 [facility] Comment on above: Performed By: #### L 500.2500, L100.0100 ####[facility] [address] [place], [address] Eosinophils/100 WBC (Bld) 2.5 % Normal 0-5 [facility] Comment on above: Performed By: #### L 500.2500, L100.0100 ####[facility] [address] [place], [address] Erythrocyte distribution width (RBC) [Ratio] 19.1 % High 11.6-14.6 [facility] Comment on above: Performed By: #### L 500.2500, L100.0100 ####[facility] [address] [place], [address] Hematocrit (Bld) [Volume fraction] 29.5 % Low 40-54 [facility] Comment on above: Performed By: #### L 500.2500, L100.0100 ####[facility] [address] [place], [address] Hemoglobin (Bld) [Mass/Vol] 9.5 g/dL Low 13.0-16.5 [facility] Comment on above: Performed By: #### L 500.2500, L100.0100 ####[facility] [address] [place], [address] IG% 0.700 Normal 0.0-0.9 [facility] Comment on above: Result Comment: IG% - Immature Granulocytes (promyelocytes, myelocytes andmetamyelocytes) > 1% indicates that a LEFT SHIFT is Present. Performed By: #### L 500.2500, L100.0100 ####[facility] [address] [place], [address] Lymphocytes/100 WBC (Bld) 13.3 % Low 19-41 [facility] Comment on above: Performed By: #### L 500.2500, L100.0100 ####[facility] [address] [place], [address] MCH (RBC) [Entitic mass] 26.5 pg Low 27.0-32.0 [facility] Comment on above: Performed By: #### L 500.2500, L100.0100 ####[facility] [address] [place], [address] MCHC (RBC) [Mass/Vol] 32.2 g/dL Normal 32-36 [facility] Comment on above: Performed By: #### L 500.2500, L100.0100 ####[facility] [address] [place], [address] MCV (RBC) [Entitic vol] 82.2 fL Normal 80-94 [facility] Comment on above: Performed By: #### L 500.2500, L100.0100 ####[facility] [address] [place], [address] Monocytes/100 WBC (Bld) 7.0 % Normal 0-10 [facility] Comment on above: Performed By: #### L 500.2500, L100.0100 ####[facility] [address] [place], [address] Neutrophils/100 WBC (Bld) 76.2 % High 47-70 [facility] Comment on above: Performed By: #### L 500.2500, L100.0100 ####[facility] [address] [place], [address] Nucleated RBC (Bld) [#/Vol] 0 10*3/uL Normal 0-5 [facility] Comment on above: Performed By: #### L 500.2500, L100.0100 ####[facility] [address] [place], [address] Platelet mean volume (Bld) [Entitic vol] 9.2 fL Normal 6.2-12.0 [facility] Comment on above: Performed By: #### L 500.2500, L100.0100 ####[facility] [address] [place], [address] Platelets (Bld) [#/Vol] 449 10*3/uL Normal 150-450 [facility] Comment on above: Performed By: #### L 500.2500, L100.0100 ####[facility] [address] [place], [address] RBC (Bld) [#/Vol] 3.59 10*6/uL Low 4.6-6.2 [facility] Comment on above: Performed By: #### L 500.2500, L100.0100 ####[facility] [address] [place], [address] RDW SD 56.4 fl High 35.1-43.9 [facility] Comment on above: Performed By: #### L 500.2500, L100.0100 ####[facility] [address] [place], [address] WBC (Bld) [#/Vol] 10.8 10*3/uL Normal 4.4-11.0 [facility] Comment on above: Performed By: #### L 500.2500, L100.0100 ####[facility] [address] [place], [address] ACT Activated Clotting Timeo n 06-24-2024 ACTk CLOT TIME 210 sec High 74-137 [facility] Comment on above: Performed By: #### L 9100.0100 ####[facility] [address] [place], [address] ACTk CLOT TIME 216 sec High 74-137 [facility] Comment on above: Performed By: #### L 9100.0100 ####[facility] [address] [place], [address] ACTk CLOT TIME 204 sec High 74-137 [facility] Comment on above: Performed By: #### L 9100.0100 ####[facility] [address] [place], [address] Operative Reporton Operative Report Normal [facility] Basic Metabolic Profile (BMP )on 06-19-2024 BUN/CRE 25.7 RATIO High 10-20 [facility] Comment on above: Performed By: #### L 100.0500, L500.2500 ####[facility] [address] [place], [address] Calcium [Mass/Vol] 9.2 mg/dL Normal 7.6-11.0 [facility] Comment on above: Performed By: #### L 100.0500, L500.2500 ####[facility] [address] [place], [address] Chloride [Moles/Vol] 106 mmol/L Normal 98-108 [facility] Comment on above: Performed By: #### L 100.0500, L500.2500 ####[facility] [address] [place], [address] CO2 [Moles/Vol] 19.6 mmol/L Low 21.0-32.0 [facility] Comment on above: Performed By: #### L 100.0500, L500.2500 ####[facility] [address] [place], [address] Creatinine [Mass/Vol] 0.81 mg/dL Normal 0.70-1.20 [facility] Comment on above: Performed By: #### L 100.0500, L500.2500 ####[facility] [address] [place], [address] ECRCL 64.24 ml/min Normal 50-250 [facility] Comment on above: Performed By: #### L 100.0500, L500.2500 ####[facility] [address] [place], [address] GAP 12 Normal 5-15 [facility] Comment on above: Performed By: #### L 100.0500, L500.2500 ####[facility] [address] [place], [address] GFR/1.73 sq M.predicted among non-blacks MDRD (S/P/Bld) [Vol rate/Area] 95 mL/min/{1.73_m2} Normal >60 [facility] Comment on above: Result Comment: mL/m in/1.73m2 CKD-EPI Creatinine Equation (2020) Performed By: #### L 100.0500, L500.2500 ####[facility] [address] [place], [address] Glucose [Mass/Vol] 117 mg/dL High 70-99 [facility] Comment on above: Performed By: #### L 100.0500, L500.2500 ####[facility] [address] [place], [address] Potassium [Moles/Vol] 3.9 mmol/L Normal 3.3-5.1 [facility] Comment on above: Performed By: #### L 100.0500, L500.2500 ####[facility] [address] [place], [address] Sodium [Moles/Vol] 138 mmol/L Normal 133-145 [facility] Comment on above: Performed By: #### L 100.0500, L500.2500 ####[facility] [address] [place], [address] Urea nitrogen [Mass/Vol] 21 mg/dL High 4-19 [facility] Comment on above: Performed By: #### L 100.0500, L500.2500 ####[facility] [address] [place], [address] CBC-Complete Blood Cnt No Di ffon 06-19-2024 Erythrocyte distribution width (RBC) [Ratio] 18.2 % High 11.6-14.6 [facility] Comment on above: Performed By: #### L 100.0500, L500.2500 ####[facility] [address] [place], [address] Hematocrit (Bld) [Volume fraction] 30.2 % Low 40-54 [facility] Comment on above: Performed By: #### L 100.0500, L500.2500 ####[facility] [address] [place], [address] Hemoglobin (Bld) [Mass/Vol] 9.3 g/dL Low 13.0-16.5 [facility] Comment on above: Performed By: #### L 100.0500, L500.2500 ####[facility] [address] [place], [address] MCH (RBC) [Entitic mass] 25.8 pg Low 27.0-32.0 [facility] Comment on above: Performed By: #### L 100.0500, L500.2500 ####[facility] [address] [place], [address] MCHC (RBC) [Mass/Vol] 30.8 g/dL Low 32-36 [facility] Comment on above: Performed By: #### L 100.0500, L500.2500 ####[facility] [address] [place], [address] MCV (RBC) [Entitic vol] 83.9 fL Normal 80-94 [facility] Comment on above: Performed By: #### L 100.0500, L500.2500 ####[facility] [address] [place], [address] Platelet mean volume (Bld) [Entitic vol] 10.0 fL Normal 6.2-12.0 [facility] Comment on above: Performed By: #### L 100.0500, L500.2500 ####[facility] [address] [place], [address] Platelets (Bld) [#/Vol] 320 10*3/uL Normal 150-450 [facility] Comment on above: Performed By: #### L 100.0500, L500.2500 ####[facility] [address] [place], [address] RBC (Bld) [#/Vol] 3.60 10*6/uL Low 4.6-6.2 [facility] Comment on above: Performed By: #### L 100.0500, L500.2500 ####[facility] [address] [place], [address] RDW SD 54.9 fl High 35.1-43.9 [facility] Comment on above: Performed By: #### L 100.0500, L500.2500 ####[facility] [address] [place], [address] WBC (Bld) [#/Vol] 7.6 10*3/uL Normal 4.4-11.0 [facility] Comment on above: Performed By: #### L 100.0500, L500.2500 ####[facility] [address] [place], [address] Gastroenterology Visit Repor ton 06-19-2024 Gastroenterology Visit Report Normal [facility] Basic Metabolic Profile (BMP )on 06-14-2024 BUN Normal 4-19 [facility] Comment on above: Result Comment: Canc elled via OM: Order cancelled - Patient discharged Performed By: #### L 500.2500, L100.0100 ####[facility] [address] [place], [address] BUN/CRE Normal 10-20 [facility] Comment on above: Result Comment: Canc elled via OM: Order cancelled - Patient discharged Performed By: #### L 500.2500, L100.0100 ####[facility] [address] [place], [address] Calcium Normal 7.6-11.0 [facility] Comment on above: Result Comment: Canc elled via OM: Order cancelled - Patient discharged Performed By: #### L 500.2500, L100.0100 ####[facility] [address] [place], [address] CL Normal 98-108 [facility] Comment on above: Result Comment: Canc elled via OM: Order cancelled - Patient discharged Performed By: #### L 500.2500, L100.0100 ####[facility] [address] [place], [address] CO2 Normal 21.0-32.0 [facility] Comment on above: Result Comment: Canc elled via OM: Order cancelled - Patient discharged Performed By: #### L 500.2500, L100.0100 ####[facility] [address] [place], [address] CREAT,SERUM Normal 0.70-1.20 [facility] Comment on above: Result Comment: Canc elled via OM: Order cancelled - Patient discharged Performed By: #### L 500.2500, L100.0100 ####[facility] [address] [place], [address] eGFR Normal >60 [facility] Comment on above: Result Comment: Canc elled via OM: Order cancelled - Patient discharged Performed By: #### L 500.2500, L100.0100 ####[facility] [address] [place], [address] GAP Normal 5-15 [facility] Comment on above: Result Comment: Canc elled via OM: Order cancelled - Patient discharged Performed By: #### L 500.2500, L100.0100 ####[facility] [address] [place], [address] GLU Normal 70-99 [facility] Comment on above: Result Comment: Canc elled via OM: Order cancelled - Patient discharged Performed By: #### L 500.2500, L100.0100 ####[facility] [address] [place], [address] Potassium Normal 3.3-5.1 [facility] Comment on above: Result Comment: Canc elled via OM: Order cancelled - Patient discharged Performed By: #### L 500.2500, L100.0100 ####[facility] [address] [place], [address] Basic Metabolic Profile (BMP) Normal 133-145 [facility] Comment on above: Result Comment: Canc elled via OM: Order cancelled - Patient discharged Performed By: #### L 500.2500, L100.0100 ####[facility] [address] [place], [address] CBC W/Diff, Automatedon 05-0 Absolute Neut Normal 2.0-7.7 [facility] Comment on above: Result Comment: Canc elled via OM: Order cancelled - Patient discharged Performed By: #### L 500.2500, L100.0100 ####[facility] [address] [place], [address] HCT Normal 40-54 [facility] Comment on above: Result Comment: Canc elled via OM: Order cancelled - Patient discharged Performed By: #### L 500.2500, L100.0100 ####[facility] [address] [place], [address] HGB Normal 13.0-16.5 [facility] Comment on above: Result Comment: Canc elled via OM: Order cancelled - Patient discharged Performed By: #### L 500.2500, L100.0100 ####[facility] [address] [place], [address] MCH Normal 27.0-32.0 [facility] Comment on above: Result Comment: Canc elled via OM: Order cancelled - Patient discharged Performed By: #### L 500.2500, L100.0100 ####[facility] [address] [place], [address] MCHC Normal 32-36 [facility] Comment on above: Result Comment: Canc elled via OM: Order cancelled - Patient discharged Performed By: #### L 500.2500, L100.0100 ####[facility] [address] [place], [address] MCV Normal 80-94 [facility] Comment on above: Result Comment: Canc elled via OM: Order cancelled - Patient discharged Performed By: #### L 500.2500, L100.0100 ####[facility] [address] [place], [address] NEUT% Normal 47-70 [facility] Comment on above: Result Comment: Canc elled via OM: Order cancelled - Patient discharged Performed By: #### L 500.2500, L100.0100 ####[facility] [address] [place], [address] PLT Normal 150-450 [facility] Comment on above: Result Comment: Canc elled via OM: Order cancelled - Patient discharged Performed By: #### L 500.2500, L100.0100 ####[facility] [address] [place], [address] RBC Normal 4.6-6.2 [facility] Comment on above: Result Comment: Canc elled via OM: Order cancelled - Patient discharged Performed By: #### L 500.2500, L100.0100 ####[facility] [address] [place], [address] RDW CV Normal 11.6-14.6 [facility] Comment on above: Result Comment: Canc elled via OM: Order cancelled - Patient discharged Performed By: #### L 500.2500, L100.0100 ####[facility] [address] [place], [address] RDW SD Normal 35.1-43.9 [facility] Comment on above: Result Comment: Canc elled via OM: Order cancelled - Patient discharged Performed By: #### L 500.2500, L100.0100 ####[facility] [address] [place], [address] WBC Normal 4.4-11.0 [facility] Comment on above: Result Comment: Canc elled via OM: Order cancelled - Patient discharged Performed By: #### L 500.2500, L100.0100 ####[facility] [address] [place], [address] Basic Metabolic Profile (BMP )on 06-13-2024 BUN/CRE 14.1 RATIO Normal 10-20 [facility] Comment on above: Performed By: #### L 500.2500, L100.0100 ####[facility] [address] [place], [address] Calcium [Mass/Vol] 9.5 mg/dL Normal 7.6-11.0 [facility] Comment on above: Performed By: #### L 500.2500, L100.0100 ####[facility] [address] [place], [address] Chloride [Moles/Vol] 102 mmol/L Normal 98-108 [facility] Comment on above: Performed By: #### L 500.2500, L100.0100 ####[facility] [address] [place], [address] CO2 [Moles/Vol] 18.9 mmol/L Low 21.0-32.0 [facility] Comment on above: Performed By: #### L 500.2500, L100.0100 ####[facility] [address] [place], [address] Creatinine [Mass/Vol] 1.01 mg/dL Normal 0.70-1.20 [facility] Comment on above: Performed By: #### L 500.2500, L100.0100 ####[facility] [address] [place], [address] ECRCL 49.19 ml/min Low 50-250 [facility] Comment on above: Performed By: #### L 500.2500, L100.0100 ####[facility] [address] [place], [address] GAP 16 High 5-15 [facility] Comment on above: Performed By: #### L 500.2500, L100.0100 ####[facility] [address] [place], [address] GFR/1.73 sq M.predicted among non-blacks MDRD (S/P/Bld) [Vol rate/Area] 80 mL/min/{1.73_m2} Normal >60 [facility] Comment on above: Result Comment: mL/m in/1.73m2 CKD-EPI Creatinine Equation (2020) Performed By: #### L 500.2500, L100.0100 ####[facility] [address] [place], [address] Glucose [Mass/Vol] 101 mg/dL High 70-99 [facility] Comment on above: Performed By: #### L 500.2500, L100.0100 ####[facility] [address] [place], [address] Potassium [Moles/Vol] 3.7 mmol/L Normal 3.3-5.1 [facility] Comment on above: Performed By: #### L 500.2500, L100.0100 ####[facility] [address] [place], [address] Sodium [Moles/Vol] 137 mmol/L Normal 133-145 [facility] Comment on above: Performed By: #### L 500.2500, L100.0100 ####[facility] [address] [place], [address] Urea nitrogen [Mass/Vol] 14 mg/dL Normal 4-19 [facility] Comment on above: Performed By: #### L 500.2500, L100.0100 ####[facility] [address] [place], [address] CBC W/Diff, Automatedon 05-0 3-2025 Absolute Lymph 2.12 X10 3/uL Normal 0.83-4.51 [facility] Comment on above: Performed By: #### L 500.2500, L100.0100 ####[facility] [address] [place], [address] Absolute Neut 3.5 X10 3/uL Normal 2.0-7.7 [facility] Comment on above: Performed By: #### L 500.2500, L100.0100 ####[facility] [address] [place], [address] Basophils/100 WBC (Bld) 0.3 % Normal 0-1 [facility] Comment on above: Performed By: #### L 500.2500, L100.0100 ####[facility] [address] [place], [address] Eosinophils/100 WBC (Bld) 3.1 % Normal 0-5 [facility] Comment on above: Performed By: #### L 500.2500, L100.0100 ####[facility] [address] [place], [address] Erythrocyte distribution width (RBC) [Ratio] 16.7 % High 11.6-14.6 [facility] Comment on above: Performed By: #### L 500.2500, L100.0100 ####[facility] [address] [place], [address] Hematocrit (Bld) [Volume fraction] 36.0 % Low 40-54 [facility] Comment on above: Performed By: #### L 500.2500, L100.0100 ####[facility] [address] [place], [address] Hemoglobin (Bld) [Mass/Vol] 11.5 g/dL Low 13.0-16.5 [facility] Comment on above: Performed By: #### L 500.2500, L100.0100 ####[facility] [address] [place], [address] IG% 0.300 Normal 0.0-0.9 [facility] Comment on above: Result Comment: IG% - Immature Granulocytes (promyelocytes, myelocytes andmetamyelocytes) > 1% indicates that a LEFT SHIFT is Present. Performed By: #### L 500.2500, L100.0100 ####[facility] [address] [place], [address] Lymphocytes/100 WBC (Bld) 31.8 % Normal 19-41 [facility] Comment on above: Performed By: #### L 500.2500, L100.0100 ####[facility] [address] [place], [address] MCH (RBC) [Entitic mass] 25.7 pg Low 27.0-32.0 [facility] Comment on above: Performed By: #### L 500.2500, L100.0100 ####[facility] [address] [place], [address] MCHC (RBC) [Mass/Vol] 31.9 g/dL Low 32-36 [facility] Comment on above: Performed By: #### L 500.2500, L100.0100 ####[facility] [address] [place], [address] MCV (RBC) [Entitic vol] 80.5 fL Normal 80-94 [facility] Comment on above: Performed By: #### L 500.2500, L100.0100 ####[facility] [address] [place], [address] Monocytes/100 WBC (Bld) 11.8 % High 0-10 [facility] Comment on above: Performed By: #### L 500.2500, L100.0100 ####[facility] [address] [place], [address] Neutrophils/100 WBC (Bld) 52.7 % Normal 47-70 [facility] Comment on above: Performed By: #### L 500.2500, L100.0100 ####[facility] [address] [place], [address] Nucleated RBC (Bld) [#/Vol] 0 10*3/uL Normal 0-5 [facility] Comment on above: Performed By: #### L 500.2500, L100.0100 ####[facility] [address] [place], [address] Platelet mean volume (Bld) [Entitic vol] 9.1 fL Normal 6.2-12.0 [facility] Comment on above: Performed By: #### L 500.2500, L100.0100 ####[facility] [address] [place], [address] Platelets (Bld) [#/Vol] 346 10*3/uL Normal 150-450 [facility] Comment on above: Performed By: #### L 500.2500, L100.0100 ####[facility] [address] [place], [address] RBC (Bld) [#/Vol] 4.47 10*6/uL Low 4.6-6.2 [facility] Comment on above: Performed By: #### L 500.2500, L100.0100 ####[facility] [address] [place], [address] RDW SD 48.7 fl High 35.1-43.9 [facility] Comment on above: Performed By: #### L 500.2500, L100.0100 ####[facility] [address] [place], [address] WBC (Bld) [#/Vol] 6.7 10*3/uL Normal 4.4-11.0 [facility] Comment on above: Performed By: #### L 500.2500, L100.0100 ####[facility] [address] [place], [address] Colonoscopy Reporton 025 Colonoscopy Report Normal [facility] MR/POSTOP.ANEon 06-13-2024 MR/POSTOP.ANE Normal [facility] MR/QBDJPIHT7qs 06-13-2024 MR/POSTOPAN2 Normal [facility] Surgery Specimen Level Nikko 06-13-2024 Surgery Specimen Level IV Normal [facility] Comment on above: Performed By: #### P SUIV ####[facility] [address] [place], [address] 12 Lead EKGon 06-12-2024 12 Lead EKG Normal [facility] Basic Metabolic Profile (BMP )on 06-12-2024 BUN/CRE 13.5 RATIO Normal 10-20 [facility] Comment on above: Performed By: #### L 100.0100, L500.3400, L501.5200, L501.2300, L500.4100, L500.2500 ####[facility] [address] [place], [address] Calcium [Mass/Vol] 9.8 mg/dL Normal 7.6-11.0 [facility] Comment on above: Performed By: #### L 100.0100, L500.3400, L501.5200, L501.2300, L500.4100, L500.2500 ####[facility] [address] [place], [address] Chloride [Moles/Vol] 106 mmol/L Normal 98-108 [facility] Comment on above: Performed By: #### L 100.0100, L500.3400, L501.5200, L501.2300, L500.4100, L500.2500 ####[facility] [address] [place], [address] CO2 [Moles/Vol] 22.0 mmol/L Normal 21.0-32.0 [facility] Comment on above: Performed By: #### L 100.0100, L500.3400, L501.5200, L501.2300, L500.4100, L500.2500 ####[facility] [address] [place], [address] Creatinine [Mass/Vol] 0.98 mg/dL Normal 0.70-1.20 [facility] Comment on above: Performed By: #### L 100.0100, L500.3400, L501.5200, L501.2300, L500.4100, L500.2500 ####[facility] [address] [place], [address] ECRCL 50.69 ml/min Normal 50-250 [facility] Comment on above: Performed By: #### L 100.0100, L500.3400, L501.5200, L501.2300, L500.4100, L500.2500 ####[facility] [address] [place], [address] GAP 12 Normal 5-15 [facility] Comment on above: Performed By: #### L 100.0100, L500.3400, L501.5200, L501.2300, L500.4100, L500.2500 ####[facility] [address] [place], [address] GFR/1.73 sq M.predicted among non-blacks MDRD (S/P/Bld) [Vol rate/Area] 83 mL/min/{1.73_m2} Normal >60 [facility] Comment on above: Result Comment: mL/m in/1.73m2 CKD-EPI Creatinine Equation (2020) Performed By: #### L 100.0100, L500.3400, L501.5200, L501.2300, L500.4100, L500.2500 ####[facility] [address] [place], [address] Glucose [Mass/Vol] 90 mg/dL Normal 70-99 [facility] Comment on above: Performed By: #### L 100.0100, L500.3400, L501.5200, L501.2300, L500.4100, L500.2500 ####[facility] [address] [place], [address] Potassium [Moles/Vol] 4.3 mmol/L Normal 3.3-5.1 [facility] Comment on above: Result Comment: Hemo lysis present, Results??could be affected.?? Performed By: #### L 100.0100, L500.3400, L501.5200, L501.2300, L500.4100, L500.2500 ####[facility] [address] [place], [address] Sodium [Moles/Vol] 140 mmol/L Normal 133-145 [facility] Comment on above: Performed By: #### L 100.0100, L500.3400, L501.5200, L501.2300, L500.4100, L500.2500 ####[facility] [address] [place], [address] Urea nitrogen [Mass/Vol] 13 mg/dL Normal 4-19 [facility] Comment on above: Performed By: #### L 100.0100, L500.3400, L501.5200, L501.2300, L500.4100, L500.2500 ####[facility] [address] [place], [address] CBC W/Diff, Automatedon 05-0 2-5 Absolute Lymph 1.50 X10 3/uL Normal 0.83-4.51 [facility] Comment on above: Performed By: #### L 100.0100, L500.3400, L501.5200, L501.2300, L500.4100, L500.2500 ####[facility] [address] [place], [address] Absolute Neut 4.8 X10 3/uL Normal 2.0-7.7 [facility] Comment on above: Performed By: #### L 100.0100, L500.3400, L501.5200, L501.2300, L500.4100, L500.2500 ####[facility] [address] [place], [address] Basophils/100 WBC (Bld) 0.5 % Normal 0-1 [facility] Comment on above: Performed By: #### L 100.0100, L500.3400, L501.5200, L501.2300, L500.4100, L500.2500 ####[facility] [address] [place], [address] Eosinophils/100 WBC (Bld) 3.1 % Normal 0-5 [facility] Comment on above: Performed By: #### L 100.0100, L500.3400, L501.5200, L501.2300, L500.4100, L500.2500 ####[facility] [address] [place], [address] Erythrocyte distribution width (RBC) [Ratio] 16.4 % High 11.6-14.6 [facility] Comment on above: Performed By: #### L 100.0100, L500.3400, L501.5200, L501.2300, L500.4100, L500.2500 ####[facility] [address] [place], [address] Hematocrit (Bld) [Volume fraction] 36.1 % Low 40-54 [facility] Comment on above: Performed By: #### L 100.0100, L500.3400, L501.5200, L501.2300, L500.4100, L500.2500 ####[facility] [address] [place], [address] Hemoglobin (Bld) [Mass/Vol] 11.5 g/dL Low 13.0-16.5 [facility] Comment on above: Performed By: #### L 100.0100, L500.3400, L501.5200, L501.2300, L500.4100, L500.2500 ####[facility] [address] [place], [address] IG% 0.400 Normal 0.0-0.9 [facility] Comment on above: Result Comment: IG% - Immature Granulocytes (promyelocytes, myelocytes andmetamyelocytes) > 1% indicates that a LEFT SHIFT is Present. Performed By: #### L 100.0100, L500.3400, L501.5200, L501.2300, L500.4100, L500.2500 ####[facility] [address] [place], [address] Lymphocytes/100 WBC (Bld) 20.0 % Normal 19-41 [facility] Comment on above: Performed By: #### L 100.0100, L500.3400, L501.5200, L501.2300, L500.4100, L500.2500 ####[facility] [address] [place], [address] MCH (RBC) [Entitic mass] 25.8 pg Low 27.0-32.0 [facility] Comment on above: Performed By: #### L 100.0100, L500.3400, L501.5200, L501.2300, L500.4100, L500.2500 ####[facility] [address] [place], [address] MCHC (RBC) [Mass/Vol] 31.9 g/dL Low 32-36 [facility] Comment on above: Performed By: #### L 100.0100, L500.3400, L501.5200, L501.2300, L500.4100, L500.2500 ####[facility] [address] [place], [address] MCV (RBC) [Entitic vol] 81.1 fL Normal 80-94 [facility] Comment on above: Performed By: #### L 100.0100, L500.3400, L501.5200, L501.2300, L500.4100, L500.2500 ####[facility] [address] [place], [address] Monocytes/100 WBC (Bld) 12.0 % High 0-10 [facility] Comment on above: Performed By: #### L 100.0100, L500.3400, L501.5200, L501.2300, L500.4100, L500.2500 ####[facility] [address] [place], [address] Neutrophils/100 WBC (Bld) 64.0 % Normal 47-70 [facility] Comment on above: Performed By: #### L 100.0100, L500.3400, L501.5200, L501.2300, L500.4100, L500.2500 ####[facility] [address] [place], [address] Nucleated RBC (Bld) [#/Vol] 0 10*3/uL Normal 0-5 [facility] Comment on above: Performed By: #### L 100.0100, L500.3400, L501.5200, L501.2300, L500.4100, L500.2500 ####[facility] [address] [place], [address] Platelet mean volume (Bld) [Entitic vol] 9.7 fL Normal 6.2-12.0 [facility] Comment on above: Performed By: #### L 100.0100, L500.3400, L501.5200, L501.2300, L500.4100, L500.2500 ####[facility] [address] [place], [address] Platelets (Bld) [#/Vol] 370 10*3/uL Normal 150-450 [facility] Comment on above: Performed By: #### L 100.0100, L500.3400, L501.5200, L501.2300, L500.4100, L500.2500 ####[facility] [address] [place], [address] RBC (Bld) [#/Vol] 4.45 10*6/uL Low 4.6-6.2 [facility] Comment on above: Performed By: #### L 100.0100, L500.3400, L501.5200, L501.2300, L500.4100, L500.2500 ####[facility] [address] [place], [address] RDW SD 48.2 fl High 35.1-43.9 [facility] Comment on above: Performed By: #### L 100.0100, L500.3400, L501.5200, L501.2300, L500.4100, L500.2500 ####[facility] [address] [place], [address] WBC (Bld) [#/Vol] 7.5 10*3/uL Normal 4.4-11.0 [facility] Comment on above: Performed By: #### L 100.0100, L500.3400, L501.5200, L501.2300, L500.4100, L500.2500 ####[facility] [address] [place], [address] EGD Reporton 06-12-2024 EGD Report Normal [facility] Lipid Profileon 06-12-2024 CHOL:HDL 1.64 Normal [facility] Comment on above: Performed By: #### L 100.0100, L500.3400, L501.5200, L501.2300, L500.4100, L500.2500 ####[facility] [address] [place], [address] Cholesterol [Mass/Vol] 107 mg/dL Normal <=200 [facility] Comment on above: Result Comment: Chol esterol level, Desirable <200 mg/dLBorderline high cholesterol 200-239 mg/dLHigh cholesterol >=240 mg/dLRecommendations of the NCEP Adult Treatment Panel for thefollowing risk-cutoff thresholds for the [place] [facility]. Performed By: #### L 100.0100, L500.3400, L501.5200, L501.2300, L500.4100, L500.2500 ####[facility] [address] [place], [address] Cholesterol in HDL [Mass/Vol] 65 mg/dL Normal [facility] Comment on above: Result Comment: Ramona onal Cholesterol Education Program (NCEP) guidelines:<40 mg/dL: Low HDL-cholesterol (major risk factor for CHD)>= 60 mg/dL: High HDL-cholesterol (negative risk factor forCHD)HDL-cholesterol is affected by a number of factors, e.g.smoking, exercise, hormones, sex and age. Performed By: #### L 100.0100, L500.3400, L501.5200, L501.2300, L500.4100, L500.2500 ####[facility] [address] [place], [address] Cholesterol in LDL [Mass/Vol] 32 mg/dL Normal [facility] Comment on above: Result Comment: Bord cxdout=172-005 mg/dL Higher Fkny=339 mg/dL or greater Performed By: #### L 100.0100, L500.3400, L501.5200, L501.2300, L500.4100, L500.2500 ####[facility] [address] [place], [address] Cholesterol in VLDL [Mass/Vol] 10 mg/dL Normal 5-40 [facility] Comment on above: Performed By: #### L 100.0100, L500.3400, L501.5200, L501.2300, L500.4100, L500.2500 ####[facility] [address] [place], [address] Triglyceride [Mass/Vol] 51 mg/dL Normal [facility] Comment on above: Result Comment: The drugs N-Acetylcysteine and Metamizole may falselydepress this assay.Normal range: <150 mg/dLBorderline High: 150-199 mg/dLHigh: 200-499 mg/dLVery High: >500 mg/dL Performed By: #### L 100.0100, L500.3400, L501.5200, L501.2300, L500.4100, L500.2500 ####[facility] [address] [place], [address] Liver Profileon 06-12-2024 Albumin [Mass/Vol] 4.5 g/dL Normal 3.4-4.8 [facility] Comment on above: Performed By: #### L 100.0100, L500.3400, L501.5200, L501.2300, L500.4100, L500.2500 ####[facility] [address] [place], [address] ALK PHOS 67 U/L Normal 40-129 [facility] Comment on above: Performed By: #### L 100.0100, L500.3400, L501.5200, L501.2300, L500.4100, L500.2500 ####[facility] [address] [place], [address] ALT [Catalytic activity/Vol] 20 U/L Normal <=46 [facility] Comment on above: Performed By: #### L 100.0100, L500.3400, L501.5200, L501.2300, L500.4100, L500.2500 ####[facility] [address] [place], [address] AST [Catalytic activity/Vol] 33 U/L Normal <=37 [facility] Comment on above: Result Comment: Hemo lysis present, Results??could be affected.?? Performed By: #### L 100.0100, L500.3400, L501.5200, L501.2300, L500.4100, L500.2500 ####[facility] [address] [place], [address] Bilirubin [Mass/Vol] 0.28 mg/dL Normal 0.00-1.30 [facility] Comment on above: Performed By: #### L 100.0100, L500.3400, L501.5200, L501.2300, L500.4100, L500.2500 ####[facility] [address] [place], [address] Bilirubin.direct [Mass/Vol] 0.14 mg/dL Normal 0.00-0.30 [facility] Comment on above: Result Comment: Hemo lysis present, Results??could be affected.?? Performed By: #### L 100.0100, L500.3400, L501.5200, L501.2300, L500.4100, L500.2500 ####[facility] [address] [place], [address] Globulin (S) [Mass/Vol] 3.1 g/dL Normal 2.2-4.2 [facility] Comment on above: Performed By: #### L 100.0100, L500.3400, L501.5200, L501.2300, L500.4100, L500.2500 ####[facility] [address] [place], [address] T PROT 7.6 g/dL Normal 5.9-8.4 [facility] Comment on above: Performed By: #### L 100.0100, L500.3400, L501.5200, L501.2300, L500.4100, L500.2500 ####[facility] [address] [place], [address] MR/POSTOP.ANEon 06-12-2024 MR/POSTOP.ANE Normal [facility] Magnesiumon 06-12-2024 Magnesium [Mass/Vol] 2.4 mg/dL High 1.5-2.2 [facility] Comment on above: Performed By: #### L 100.0100, L500.3400, L501.5200, L501.2300, L500.4100, L500.2500 ####[facility] [address] [place], [address] Phosphoruson 06-12-2024 Phosphate [Mass/Vol] 3.8 mg/dL Normal 2.7-4.5 [facility] Comment on above: Performed By: #### L 100.0100, L500.3400, L501.5200, L501.2300, L500.4100, L500.2500 ####[facility] [address] [place], [address] Basic Metabolic Profile (BMP )on 06-11-2024 BUN/CRE 13.8 RATIO Normal 10-20 [facility] Comment on above: Performed By: #### L 100.0100, L500.2500 ####[facility] [address] [place], [address] Calcium [Mass/Vol] 9.5 mg/dL Normal 7.6-11.0 [facility] Comment on above: Performed By: #### L 100.0100, L500.2500 ####[facility] [address] [place], [address] Chloride [Moles/Vol] 107 mmol/L Normal 98-108 [facility] Comment on above: Performed By: #### L 100.0100, L500.2500 ####[facility] [address] [place], [address] CO2 [Moles/Vol] 21.1 mmol/L Normal 21.0-32.0 [facility] Comment on above: Performed By: #### L 100.0100, L500.2500 ####[facility] [address] [place], [address] Creatinine [Mass/Vol] 0.97 mg/dL Normal 0.70-1.20 [facility] Comment on above: Performed By: #### L 100.0100, L500.2500 ####[facility] [address] [place], [address] ECRCL 51.22 ml/min Normal 50-250 [facility] Comment on above: Performed By: #### L 100.0100, L500.2500 ####[facility] [address] [place], [address] GAP 10 Normal 5-15 [facility] Comment on above: Performed By: #### L 100.0100, L500.2500 ####[facility] [address] [place], [address] GFR/1.73 sq M.predicted among non-blacks MDRD (S/P/Bld) [Vol rate/Area] 84 mL/min/{1.73_m2} Normal >60 [facility] Comment on above: Result Comment: mL/m in/1.73m2 CKD-EPI Creatinine Equation (2020) Performed By: #### L 100.0100, L500.2500 ####[facility] [address] [place], [address] Glucose [Mass/Vol] 98 mg/dL Normal 70-99 [facility] Comment on above: Performed By: #### L 100.0100, L500.2500 ####[facility] [address] [place], [address] Potassium [Moles/Vol] 4.0 mmol/L Normal 3.3-5.1 [facility] Comment on above: Performed By: #### L 100.0100, L500.2500 ####[facility] [address] [place], [address] Sodium [Moles/Vol] 138 mmol/L Normal 133-145 [facility] Comment on above: Performed By: #### L 100.0100, L500.2500 ####[facility] [address] [place], [address] Urea nitrogen [Mass/Vol] 13 mg/dL Normal 4-19 [facility] Comment on above: Performed By: #### L 100.0100, L500.2500 ####[facility] [address] [place], [address] CBC W/Diff, Automatedon 05-0 1-2024 Absolute Lymph 1.58 X10 3/uL Normal 0.83-4.51 [facility] Comment on above: Performed By: #### L 100.0100, L500.2500 ####[facility] [address] [place], [address] Absolute Neut 4.4 X10 3/uL Normal 2.0-7.7 [facility] Comment on above: Performed By: #### L 100.0100, L500.2500 ####[facility] [address] [place], [address] Basophils/100 WBC (Bld) 0.3 % Normal 0-1 [facility] Comment on above: Performed By: #### L 100.0100, L500.2500 ####[facility] [address] [place], [address] Eosinophils/100 WBC (Bld) 2.9 % Normal 0-5 [facility] Comment on above: Performed By: #### L 100.0100, L500.2500 ####[facility] [address] [place], [address] Erythrocyte distribution width (RBC) [Ratio] 15.9 % High 11.6-14.6 [facility] Comment on above: Performed By: #### L 100.0100, L500.2500 ####[facility] [address] [place], [address] Hematocrit (Bld) [Volume fraction] 32.1 % Low 40-54 [facility] Comment on above: Performed By: #### L 100.0100, L500.2500 ####[facility] [address] [place], [address] Hemoglobin (Bld) [Mass/Vol] 10.3 g/dL Low 13.0-16.5 [facility] Comment on above: Performed By: #### L 100.0100, L500.2500 ####[facility] [address] [place], [address] IG% 0.300 Normal 0.0-0.9 [facility] Comment on above: Result Comment: IG% - Immature Granulocytes (promyelocytes, myelocytes andmetamyelocytes) > 1% indicates that a LEFT SHIFT is Present. Performed By: #### L 100.0100, L500.2500 ####[facility] [address] [place], [address] Lymphocytes/100 WBC (Bld) 23.0 % Normal 19-41 [facility] Comment on above: Performed By: #### L 100.0100, L500.2500 ####[facility] [address] [place], [address] MCH (RBC) [Entitic mass] 26.1 pg Low 27.0-32.0 [facility] Comment on above: Performed By: #### L 100.0100, L500.2500 ####[facility] [address] [place], [address] MCHC (RBC) [Mass/Vol] 32.1 g/dL Normal 32-36 [facility] Comment on above: Performed By: #### L 100.0100, L500.2500 ####[facility] [address] [place], [address] MCV (RBC) [Entitic vol] 81.3 fL Normal 80-94 [facility] Comment on above: Performed By: #### L 100.0100, L500.2500 ####[facility] [address] [place], [address] Monocytes/100 WBC (Bld) 9.6 % Normal 0-10 [facility] Comment on above: Performed By: #### L 100.0100, L500.2500 ####[facility] [address] [place], [address] Neutrophils/100 WBC (Bld) 63.9 % Normal 47-70 [facility] Comment on above: Performed By: #### L 100.0100, L500.2500 ####[facility] [address] [place], [address] Nucleated RBC (Bld) [#/Vol] 0 10*3/uL Normal 0-5 [facility] Comment on above: Performed By: #### L 100.0100, L500.2500 ####[facility] [address] [place], [address] Platelet mean volume (Bld) [Entitic vol] 9.2 fL Normal 6.2-12.0 [facility] Comment on above: Performed By: #### L 100.0100, L500.2500 ####[facility] [address] [place], [address] Platelets (Bld) [#/Vol] 310 10*3/uL Normal 150-450 [facility] Comment on above: Performed By: #### L 100.0100, L500.2500 ####[facility] [address] [place], [address] RBC (Bld) [#/Vol] 3.95 10*6/uL Low 4.6-6.2 [facility] Comment on above: Performed By: #### L 100.0100, L500.2500 ####[facility] [address] [place], [address] RDW SD 47.6 fl High 35.1-43.9 [facility] Comment on above: Performed By: #### L 100.0100, L500.2500 ####[facility] [address] [place], [address] WBC (Bld) [#/Vol] 6.9 10*3/uL Normal 4.4-11.0 [facility] Comment on above: Performed By: #### L 100.0100, L500.2500 ####[facility] [address] [place], [address] Consultation - Surgicalon Consultation - Surgical Normal [facility] MR/CON.PCM.GIon 06-11-2024 MR/CON.PCM.GI Normal [facility] BRCon 06-10-2024 RC Normal [facility] Comment on above: Result Comment: [id number] OP RC TRANSFUSED 06/10/24 [id number] OP RC TRANSFUSED 06/10/24 1640 Performed By: #### B RC ####[facility] [address] [place], [address] Basic Metabolic Profile (BMP )on 06-10-2024 BUN/CRE 17.2 RATIO Normal 10-20 [facility] Comment on above: Performed By: #### L 100.0100, L500.2500, L300.3900, L300.4310 ####[facility] [address] [place], [address] Calcium [Mass/Vol] 9.0 mg/dL Normal 7.6-11.0 [facility] Comment on above: Performed By: #### L 100.0100, L500.2500, L300.3900, L300.4310 ####[facility] [address] [place], [address] Chloride [Moles/Vol] 107 mmol/L Normal 98-108 [facility] Comment on above: Performed By: #### L 100.0100, L500.2500, L300.3900, L300.4310 ####[facility] [address] [place], [address] CO2 [Moles/Vol] 21.5 mmol/L Normal 21.0-32.0 [facility] Comment on above: Performed By: #### L 100.0100, L500.2500, L300.3900, L300.4310 ####[facility] [address] [place], [address] Creatinine [Mass/Vol] 0.97 mg/dL Normal 0.70-1.20 [facility] Comment on above: Performed By: #### L 100.0100, L500.2500, L300.3900, L300.4310 ####[facility] [address] [place], [address] ECRCL 58.93 ml/min Normal 50-250 [facility] Comment on above: Performed By: #### L 100.0100, L500.2500, L300.3900, L300.4310 ####[facility] [address] [place], [address] GAP 11 Normal 5-15 [facility] Comment on above: Performed By: #### L 100.0100, L500.2500, L300.3900, L300.4310 ####[facility] [address] [place], [address] GFR/1.73 sq M.predicted among non-blacks MDRD (S/P/Bld) [Vol rate/Area] 84 mL/min/{1.73_m2} Normal >60 [facility] Comment on above: Result Comment: mL/m in/1.73m2 CKD-EPI Creatinine Equation (2020) Performed By: #### L 100.0100, L500.2500, L300.3900, L300.4310 ####[facility] [address] [place], [address] Glucose [Mass/Vol] 95 mg/dL Normal 70-99 [facility] Comment on above: Performed By: #### L 100.0100, L500.2500, L300.3900, L300.4310 ####[facility] [address] [place], [address] Potassium [Moles/Vol] 3.9 mmol/L Normal 3.3-5.1 [facility] Comment on above: Performed By: #### L 100.0100, L500.2500, L300.3900, L300.4310 ####[facility] [address] [place], [address] Sodium [Moles/Vol] 139 mmol/L Normal 133-145 [facility] Comment on above: Performed By: #### L 100.0100, L500.2500, L300.3900, L300.4310 ####[facility] [address] [place], [address] Urea nitrogen [Mass/Vol] 17 mg/dL Normal 4-19 [facility] Comment on above: Performed By: #### L 100.0100, L500.2500, L300.3900, L300.4310 ####[facility] [address] [place], [address] CBC W/Diff, Automatedon 04-3 0 Absolute Lymph 1.35 X10 3/uL Normal 0.83-4.51 [facility] Comment on above: Performed By: #### L 100.0100, L500.2500, L300.3900, L300.4310 ####[facility] [address] [place], [address] Absolute Neut 5.0 X10 3/uL Normal 2.0-7.7 [facility] Comment on above: Performed By: #### L 100.0100, L500.2500, L300.3900, L300.4310 ####[facility] [address] [place], [address] Basophils/100 WBC (Bld) 0.3 % Normal 0-1 [facility] Comment on above: Performed By: #### L 100.0100, L500.2500, L300.3900, L300.4310 ####[facility] [address] [place], [address] Eosinophils/100 WBC (Bld) 3.1 % Normal 0-5 [facility] Comment on above: Performed By: #### L 100.0100, L500.2500, L300.3900, L300.4310 ####[facility] [address] [place], [address] Erythrocyte distribution width (RBC) [Ratio] 17.0 % High 11.6-14.6 [facility] Comment on above: Performed By: #### L 100.0100, L500.2500, L300.3900, L300.4310 ####[facility] [address] [place], [address] Hematocrit (Bld) [Volume fraction] 21.5 % Low 40-54 [facility] Comment on above: Performed By: #### L 100.0100, L500.2500, L300.3900, L300.4310 ####[facility] [address] [place], [address] Hemoglobin (Bld) [Mass/Vol] 6.7 g/dL Low 13.0-16.5 [facility] Comment on above: Performed By: #### L 100.0100, L500.2500, L300.3900, L300.4310 ####[facility] [address] [place], [address] IG% 0.300 Normal 0.0-0.9 [facility] Comment on above: Result Comment: IG% - Immature Granulocytes (promyelocytes, myelocytes andmetamyelocytes) > 1% indicates that a LEFT SHIFT is Present. Performed By: #### L 100.0100, L500.2500, L300.3900, L300.4310 ####[facility] [address] [place], [address] Lymphocytes/100 WBC (Bld) 18.8 % Low 19-41 [facility] Comment on above: Performed By: #### L 100.0100, L500.2500, L300.3900, L300.4310 ####[facility] [address] [place], [address] MCH (RBC) [Entitic mass] 25.2 pg Low 27.0-32.0 [facility] Comment on above: Performed By: #### L 100.0100, L500.2500, L300.3900, L300.4310 ####[facility] [address] [place], [address] MCHC (RBC) [Mass/Vol] 31.2 g/dL Low 32-36 [facility] Comment on above: Performed By: #### L 100.0100, L500.2500, L300.3900, L300.4310 ####[facility] [address] [place], [address] MCV (RBC) [Entitic vol] 80.8 fL Normal 80-94 [facility] Comment on above: Performed By: #### L 100.0100, L500.2500, L300.3900, L300.4310 ####[facility] [address] [place], [address] Monocytes/100 WBC (Bld) 7.5 % Normal 0-10 [facility] Comment on above: Performed By: #### L 100.0100, L500.2500, L300.3900, L300.4310 ####[facility] [address] [place], [address] Neutrophils/100 WBC (Bld) 70.0 % Normal 47-70 [facility] Comment on above: Performed By: #### L 100.0100, L500.2500, L300.3900, L300.4310 ####[facility] [address] [place], [address] Nucleated RBC (Bld) [#/Vol] 0 10*3/uL Normal 0-5 [facility] Comment on above: Performed By: #### L 100.0100, L500.2500, L300.3900, L300.4310 ####[facility] [address] [place], [address] Platelet mean volume (Bld) [Entitic vol] 9.7 fL Normal 6.2-12.0 [facility] Comment on above: Performed By: #### L 100.0100, L500.2500, L300.3900, L300.4310 ####[facility] [address] [place], [address] Platelets (Bld) [#/Vol] 335 10*3/uL Normal 150-450 [facility] Comment on above: Performed By: #### L 100.0100, L500.2500, L300.3900, L300.4310 ####[facility] [address] [place], [address] RBC (Bld) [#/Vol] 2.66 10*6/uL Low 4.6-6.2 [facility] Comment on above: Performed By: #### L 100.0100, L500.2500, L300.3900, L300.4310 ####[facility] [address] [place], [address] RDW SD 50.4 fl High 35.1-43.9 [facility] Comment on above: Performed By: #### L 100.0100, L500.2500, L300.3900, L300.4310 ####[facility] [address] [place], [address] WBC (Bld) [#/Vol] 7.2 10*3/uL Normal 4.4-11.0 [facility] Comment on above: Performed By: #### L 100.0100, L500.2500, L300.3900, L300.4310 ####[facility] [address] [place], [address] Emergency Department Summary on 06-10-2024 Emergency Department Summary Normal [facility] Ferritinon 06-10-2024 Ferritin [Mass/Vol] 10 ng/mL Low 37-417 [facility] Comment on above: Performed By: #### L 503.4350, L503.6030 ####[facility] [address] [place], [address] H AND P Exam - Hospitaliston 06-10-2024 H&P Exam - Hospitalist Normal [facility] [place] HH, Hemoglobin AND Hematocri ton 06-10-2024 Hematocrit (Bld) [Volume fraction] 22.7 % Low 40-54 [facility] Comment on above: Performed By: #### L 100.0600 ####[facility] [address] [place], [address] Hemoglobin (Bld) [Mass/Vol] 7.0 g/dL Low 13.0-16.5 [facility] Comment on above: Performed By: #### L 100.0600 ####[facility] [address] [place], [address] HCT Normal 40-54 [facility] Comment on above: Result Comment: Canc elled via OM: MD Ordered Performed By: #### L 100.0600 ####[facility] [address] [place], [address] HGB Normal 13.0-16.5 [facility] Comment on above: Result Comment: Canc elled via OM: MD Ordered Performed By: #### L 100.0600 ####[facility] [address] [place], [address] Iron+Iron Binding Capacityon 06-10-2024 Iron [Mass/Vol] 12 ug/dL Low 65-175 [facility] Comment on above: Performed By: #### L 503.6550, L503.6030 ####[facility] [address] [place], [address] IRON SATURATION 3.0 Low 9-55 [facility] Comment on above: Performed By: #### L 503.6550, L503.6030 ####[facility] [address] [place], [address] TIBC 361 ug/dL Normal 250-450 [facility] Comment on above: Performed By: #### L 503.6550, L503.6030 ####[facility] [address] [place], [address] UIBC 349 ug/dL Normal 228-428 [facility] Comment on above: Performed By: #### L 503.6550, L503.6030 ####[facility] [address] [place], [address] Lower Ext Art Exam w/o Exerc nick 06-10-2024 Lower Ext Art Exam w/o Exercis Normal [facility] Partial Thromboplast Timeon 06-10-2024 aPTT Coag (Bld) [Time] 32.0 s Normal 24.1-36.2 [facility] Comment on above: Performed By: #### L 100.0100, L500.2500, L300.3900, L300.4310 ####[facility] [address] [place], [address] Prothrombin Time w/INRon INR Coag (PPP) [Relative time] 1.0 {INR} Normal [facility] Comment on above: Performed By: #### L 100.0100, L500.2500, L300.3900, L300.4310 ####[facility] [address] [place], [address] PT Coag (PPP) [Time] 13.1 s Normal 11.7-14.9 [facility] Comment on above: Performed By: #### L 100.0100, L500.2500, L300.3900, L300.4310 ####[facility] [address] [place], [address] Stool Occult Blood iFOBon STOB [facility] Comment on above: Performed By: #### M 100.7900 ####[facility] [address] [place], [address] Type AND Screenon 06-10-2024 Ab SCREEN GEL Negative [facility] Comment on above: Order Comment: A Performed By: #### B TS ####[facility] [address] [place], [address] MR/BMS.BVSon 06-02-2024 MR/BMS.BVS Normal [facility] 6 Minute Walk Teston 025 6 Minute Walk Test Normal [facility] CTA Abd w/Runoff W/WO Contra ston 05-18-2024 CTA Abd w/Runoff W/WO Contrast Normal [facility] HIP, UNI W/ Pelvis 2-3 Views on 03-27-2024 HIP, UNI W/ Pelvis 2-3 Views Normal [facility] Carotid Duplex Ultrasoundon 03-25-2024 Carotid Duplex Ultrasound Normal [facility] Lower Ext Art Exam w/ Exerci dhaval 03-25-2024 Lower Ext Art Exam w/ Exercise Normal [facility] MR/BMS.BVSon 03-25-2024 MR/BMS.BVS Normal [facility] MR/BMS.BVSon 02-28-2024 MR/BMS.BVS Normal [facility] CBC W/Diff, Automatedon 12-0 Absolute Lymph 1.39 X10 3/uL Normal 0.83-4.51 [facility] Comment on above: Performed By: #### L 503.6550, L500.4100, L500.4050, L501.9910, L506.1000, L100.0100, L503.6150 ####[facility] [address] [place], [address] Absolute Neut 4.9 X10 3/uL Normal 2.0-7.7 [facility] Comment on above: Performed By: #### L 503.6550, L500.4100, L500.4050, L501.9910, L506.1000, L100.0100, L503.6150 ####[facility] [address] [place], [address] Basophils/100 WBC (Bld) 0.6 % Normal 0-1 [facility] Comment on above: Performed By: #### L 503.6550, L500.4100, L500.4050, L501.9910, L506.1000, L100.0100, L503.6150 ####[facility] [address] [place], [address] Eosinophils/100 WBC (Bld) 3.3 % Normal 0-5 [facility] Comment on above: Performed By: #### L 503.6550, L500.4100, L500.4050, L501.9910, L506.1000, L100.0100, L503.6150 ####[facility] [address] [place], [address] Erythrocyte distribution width (RBC) [Ratio] 14.0 % Normal 11.6-14.6 [facility] Comment on above: Performed By: #### L 503.6550, L500.4100, L500.4050, L501.9910, L506.1000, L100.0100, L503.6150 ####[facility] [address] [place], [address] Hematocrit (Bld) [Volume fraction] 36.7 % Low 40-54 [facility] Comment on above: Performed By: #### L 503.6550, L500.4100, L500.4050, L501.9910, L506.1000, L100.0100, L503.6150 ####[facility] [address] [place], [address] Hemoglobin (Bld) [Mass/Vol] 11.8 g/dL Low 13.0-16.5 [facility] Comment on above: Performed By: #### L 503.6550, L500.4100, L500.4050, L501.9910, L506.1000, L100.0100, L503.6150 ####[facility] [address] [place], [address] IG% 0.400 Normal 0.0-0.9 [facility] Comment on above: Result Comment: IG% - Immature Granulocytes (promyelocytes, myelocytes andmetamyelocytes) > 1% indicates that a LEFT SHIFT is Present. Performed By: #### L 503.6550, L500.4100, L500.4050, L501.9910, L506.1000, L100.0100, L503.6150 ####[facility] [address] [place], [address] Lymphocytes/100 WBC (Bld) 20.1 % Normal 19-41 [facility] Comment on above: Performed By: #### L 503.6550, L500.4100, L500.4050, L501.9910, L506.1000, L100.0100, L503.6150 ####[facility] [address] [place], [address] MCH (RBC) [Entitic mass] 31.6 pg Normal 27.0-32.0 [facility] Comment on above: Performed By: #### L 503.6550, L500.4100, L500.4050, L501.9910, L506.1000, L100.0100, L503.6150 ####[facility] [address] [place], [address] MCHC (RBC) [Mass/Vol] 32.2 g/dL Normal 32-36 [facility] Comment on above: Performed By: #### L 503.6550, L500.4100, L500.4050, L501.9910, L506.1000, L100.0100, L503.6150 ####[facility] [address] [place], [address] MCV (RBC) [Entitic vol] 98.4 fL High 80-94 [facility] Comment on above: Performed By: #### L 503.6550, L500.4100, L500.4050, L501.9910, L506.1000, L100.0100, L503.6150 ####[facility] [address] [place], [address] Monocytes/100 WBC (Bld) 3.9 % Normal 0-10 [facility] Comment on above: Performed By: #### L 503.6550, L500.4100, L500.4050, L501.9910, L506.1000, L100.0100, L503.6150 ####[facility] [address] [place], [address] Neutrophils/100 WBC (Bld) 71.7 % High 47-70 [facility] Comment on above: Performed By: #### L 503.6550, L500.4100, L500.4050, L501.9910, L506.1000, L100.0100, L503.6150 ####[facility] [address] [place], [address] Nucleated RBC (Bld) [#/Vol] 0 10*3/uL Normal 0-5 [facility] Comment on above: Performed By: #### L 503.6550, L500.4100, L500.4050, L501.9910, L506.1000, L100.0100, L503.6150 ####[facility] [address] [place], [address] Platelet mean volume (Bld) [Entitic vol] 9.8 fL Normal 6.2-12.0 [facility] Comment on above: Performed By: #### L 503.6550, L500.4100, L500.4050, L501.9910, L506.1000, L100.0100, L503.6150 ####[facility] [address] [place], [address] Platelets (Bld) [#/Vol] 298 10*3/uL Normal 150-450 [facility] Comment on above: Performed By: #### L 503.6550, L500.4100, L500.4050, L501.9910, L506.1000, L100.0100, L503.6150 ####[facility] [address] [place], [address] RBC (Bld) [#/Vol] 3.73 10*6/uL Low 4.6-6.2 [facility] Comment on above: Performed By: #### L 503.6550, L500.4100, L500.4050, L501.9910, L506.1000, L100.0100, L503.6150 ####[facility] [address] [place], [address] RDW SD 50.9 fl High 35.1-43.9 [facility] Comment on above: Performed By: #### L 503.6550, L500.4100, L500.4050, L501.9910, L506.1000, L100.0100, L503.6150 ####[facility] [address] [place], [place], [id number] WBC (Bld) [#/Vol] 6.9 10*3/uL Normal 4.4-11.0 [facility] Comment on above: Performed By: #### L 503.6550, L500.4100, L500.4050, L501.9910, L506.1000, L100.0100, L503.6150 ####[facility] [address] [place], [place], [id number] Comprehensive Metabolic Prof azon 01-14-2024 Albumin [Mass/Vol] 3.7 g/dL Normal 3.2-5.0 [facility] Comment on above: Performed By: #### L 503.6550, L500.4100, L500.4050, L501.9910, L506.1000, L100.0100, L503.6150 ####[facility] [address] [place], [address] Albumin/Globulin [Mass ratio] 1.1 {ratio} Normal 0.9-2.4 [facility] Comment on above: Performed By: #### L 503.6550, L500.4100, L500.4050, L501.9910, L506.1000, L100.0100, L503.6150 ####[facility] [address] [place], [address] ALK P 70 U/L Normal 45-117 [facility] Comment on above: Performed By: #### L 503.6550, L500.4100, L500.4050, L501.9910, L506.1000, L100.0100, L503.6150 ####[facility] [address] [place], [address] ALT [Catalytic activity/Vol] 22 U/L Normal 16-61 [facility] Comment on above: Performed By: #### L 503.6550, L500.4100, L500.4050, L501.9910, L506.1000, L100.0100, L503.6150 ####[facility] [address] [place], [address] AST [Catalytic activity/Vol] 23 U/L Normal 15-37 [facility] Comment on above: Performed By: #### L 503.6550, L500.4100, L500.4050, L501.9910, L506.1000, L100.0100, L503.6150 ####[facility] [address] [place], [address] Bilirubin [Mass/Vol] 0.30 mg/dL Normal 0.20-1.00 [facility] Comment on above: Result Comment: For patients on eltrombopag therapy, use of Dimension [place] TBIL is not recommended. Performed By: #### L 503.6550, L500.4100, L500.4050, L501.9910, L506.1000, L100.0100, L503.6150 ####[facility] [address] [place], [address] BUN/CRE 14.7 RATIO Normal 10-20 [facility] Comment on above: Performed By: #### L 503.6550, L500.4100, L500.4050, L501.9910, L506.1000, L100.0100, L503.6150 ####[facility] [address] [place], [address] CA,Total 9.3 mg/dL Normal 8.5-10.1 [facility] Comment on above: Performed By: #### L 503.6550, L500.4100, L500.4050, L501.9910, L506.1000, L100.0100, L503.6150 ####[facility] [address] [place], [address] Chloride [Moles/Vol] 106 mmol/L Normal 98-107 [facility] Comment on above: Performed By: #### L 503.6550, L500.4100, L500.4050, L501.9910, L506.1000, L100.0100, L503.6150 ####[facility] [address] [place], [address] CO2 [Moles/Vol] 26.0 mmol/L Normal 21.0-32.0 [facility] Comment on above: Performed By: #### L 503.6550, L500.4100, L500.4050, L501.9910, L506.1000, L100.0100, L503.6150 ####[facility] [address] [place], [address] Creatinine [Mass/Vol] 1.02 mg/dL Normal 0.70-1.30 [facility] Comment on above: Result Comment: The validity of the calculated GFR GFRAA in patients over70 years has not been determined. Clinical correlation isessential. Performed By: #### L 503.6550, L500.4100, L500.4050, L501.9910, L506.1000, L100.0100, L503.6150 ####[facility] [address] [place], [address] EST GFR - AA 93 mL/min Normal >60 [facility] Comment on above: Result Comment: Afri can Scottish GFR Calc Performed By: #### L 503.6550, L500.4100, L500.4050, L501.9910, L506.1000, L100.0100, L503.6150 ####[facility] [address] [place], [address] GAP 6 Normal 5-15 [facility] Comment on above: Performed By: #### L 503.6550, L500.4100, L500.4050, L501.9910, L506.1000, L100.0100, L503.6150 ####[facility] [address] [place], [address] GFR/1.73 sq M.predicted among non-blacks MDRD (S/P/Bld) [Vol rate/Area] 77 mL/min/{1.73_m2} Normal >60 [facility] Comment on above: Result Comment: Non- GFR Calc Performed By: #### L 503.6550, L500.4100, L500.4050, L501.9910, L506.1000, L100.0100, L503.6150 ####[facility] [address] [place], [address] Globulin (S) [Mass/Vol] 3.4 g/dL Normal 2.2-4.2 [facility] Comment on above: Performed By: #### L 503.6550, L500.4100, L500.4050, L501.9910, L506.1000, L100.0100, L503.6150 ####[facility] [address] [place], [address] Glucose [Mass/Vol] 94 mg/dL Normal 74-106 [facility] Comment on above: Performed By: #### L 503.6550, L500.4100, L500.4050, L501.9910, L506.1000, L100.0100, L503.6150 ####[facility] [address] [place], [address] Potassium [Moles/Vol] 4.3 mmol/L Normal 3.5-5.1 [facility] Comment on above: Performed By: #### L 503.6550, L500.4100, L500.4050, L501.9910, L506.1000, L100.0100, L503.6150 ####[facility] [address] [place], [address] Sodium [Moles/Vol] 139 mmol/L Normal 136-145 [facility] Comment on above: Performed By: #### L 503.6550, L500.4100, L500.4050, L501.9910, L506.1000, L100.0100, L503.6150 ####[facility] [address] [place], [address] T PROT 7.1 g/dL Normal 6.4-8.2 [facility] Comment on above: Performed By: #### L 503.6550, L500.4100, L500.4050, L501.9910, L506.1000, L100.0100, L503.6150 ####[facility] [address] [place], [address] Urea nitrogen [Mass/Vol] 15 mg/dL Normal 7-18 [facility] Comment on above: Performed By: #### L 503.6550, L500.4100, L500.4050, L501.9910, L506.1000, L100.0100, L503.6150 ####[facility] [address] [place], [address] Ferritinon 01-14-2024 Ferritin [Mass/Vol] 30 ng/mL Normal 26-388 [facility] Comment on above: Performed By: #### L 503.6550, L500.4100, L500.4050, L501.9910, L506.1000, L100.0100, L503.6150 ####[facility] [address] [place], [address] Ironon 01-14-2024 Iron [Mass/Vol] 85 ug/dL Normal 65-175 [facility] Comment on above: Performed By: #### L 503.6550, L500.4100, L500.4050, L501.9910, L506.1000, L100.0100, L503.6150 ####[facility] [address] [place], [address] Lipid Profileon 01-14-2024 Cholesterol [Mass/Vol] 137 mg/dL Normal 200 [facility] Comment on above: Result Comment: <200 mg/dL Desirable 200-240 mg/dL Borderline >240 mg/dL High Risk Performed By: #### L 503.6550, L500.4100, L500.4050, L501.9910, L506.1000, L100.0100, L503.6150 ####[facility] [address] [place], [address] Cholesterol in HDL [Mass/Vol] 57 mg/dL Normal [facility] Comment on above: Result Comment: The drugs N-Acetylcysteine and Metamizole may falselydepress this assay. Reference Range HDL <40 mg/dL Low HDL Cholesterol HDL >or= 60 mg/dL High HDL Cholesterol Performed By: #### L 503.6550, L500.4100, L500.4050, L501.9910, L506.1000, L100.0100, L503.6150 ####[facility] [address] [place], [address] Cholesterol in LDL [Mass/Vol] 69 mg/dL Normal 0-130 [facility] Comment on above: Performed By: #### L 503.6550, L500.4100, L500.4050, L501.9910, L506.1000, L100.0100, L503.6150 ####[facility] [address] [place], [address] Cholesterol in VLDL [Mass/Vol] 11 mg/dL Normal 5-40 [facility] Comment on above: Performed By: #### L 503.6550, L500.4100, L500.4050, L501.9910, L506.1000, L100.0100, L503.6150 ####[facility] [address] [place], [address] Triglyceride [Mass/Vol] 55 mg/dL Normal [facility] Comment on above: Result Comment: The drugs N-Acetylcysteine and Metamizole may falselydepress this assay.Serum Triglycerides Reference Interval Normal <150 mg/dL Borderline high 150 - 199 mg/dL High 200 - 499 mg/dL Very High > or = 500 mg/dL Performed By: #### L 503.6550, L500.4100, L500.4050, L501.9910, L506.1000, L100.0100, L503.6150 ####[facility] [address] [place], [address] PSA,Total - Annual Screenon 01-14-2024 PSA,TOT SCREEN 3.62 ng/mL Normal 0.00-4.00 [facility] Comment on above: Result Comment: This test was performed using the TPSA assay method for the[facility] chemistry system. Values obtained with differentassay methods cannot be used interchangably.When changing PSA assays in the course of monitoring apatient, additional sequential testing should be carriedout to confirm baseline values. Performed By: #### L 503.6550, L500.4100, L500.4050, L501.9910, L506.1000, L100.0100, L503.6150 ####[facility] [address] [place], [address] Vitamin D,25 Hydroxyon 01-13 Vitamin D 25-OH 38.0 ng/mL Normal [facility] Comment on above: Result Comment: Kiah min D 25(OH) Status Range Deficiency <20 ng/mL (50nmol/L) Insufficiency 20 - 30 ng/mL (50 - 75 nmol/L) Sufficiency 30 - 100 ng/mL (75 - 250 nmol/L) Toxicity >100 ng/mL (>250 nmol/L) Performed By: #### L 503.6550, L500.4100, L500.4050, L501.9910, L506.1000, L100.0100, L503.6150 ####[facility] [address] [place], [address] Pulmonary Visit Reporton Pulmonary Visit Report Normal [facility] Vital Signs Date Time Vital Sign Value Performing Clinician Facility 10-30-2024 14:50-0400 Diastolic blood pressure 73 mm[Hg] Octavio Velez MD Work Phone: [facility] 10-30-2024 14:50-0400 Heart rate 66 /min Octavio Velez MD Work Phone: [facility] 10-30-2024 14:50-0400 Respiratory rate 17 /min Octavio Velez MD Work Phone: [facility] 10-30-2024 14:50-0400 SaO2% (BldA) [Mass fraction] 96 % Octavio Velez MD Work Phone: [facility] 10-30-2024 14:50-0400 Systolic blood pressure 135 mm[Hg] Octavio Velez MD Work Phone: [facility] 10-30-2024 14:20-0400 Body temperature 97.9 [degF] Octavio Velez MD Work Phone: [facility] 10-30-2024 09:35-0400 SaO2% (BldA) [Mass fraction] 96 % Gerson Mackenzie MD Work Phone: [facility] 10-30-2024 06:08-0400 Body temperature 97.7 [degF] Gerson Mackenzie MD Work Phone: [facility] 10-30-2024 06:08-0400 Diastolic blood pressure 83 mm[Hg] Gerson Mackenzie MD Work Phone: [facility] 10-30-2024 06:08-0400 Heart rate 77 /min Gerson Mackenzie MD Work Phone: [facility] 10-30-2024 06:08-0400 Respiratory rate 16 /min Gerson Mackenzie MD Work Phone: [facility] 10-30-2024 06:08-0400 Systolic blood pressure 143 mm[Hg] Gerson Mackenzie MD Work Phone: [facility] 10-29-2024 15:00-0400 Body mass index (BMI) [Ratio] 17.37 kg/m2 Gerson Mackenzie MD Work Phone: [facility] 10-29-2024 15:00-0400 Body weight 54.9 kg Gerson Mackenzie MD Work Phone: [facility] 10-29-2024 09:59-0400 Body height 177.8 cm Octavio Velez MD Work Phone: [facility] 10-29-2024 09:59-0400 Body mass index (BMI) [Ratio] 17.36 kg/m2 Octavio Velez MD Work Phone: [facility] 10-29-2024 09:59-0400 Body temperature 96.8 [degF] Octavio Velez MD Work Phone: [facility] 10-29-2024 09:59-0400 Body weight 54.88 kg Octavio Velez MD Work Phone: [facility] 10-29-2024 09:59-0400 Diastolic blood pressure 66 mm[Hg] Octavio Velez MD Work Phone: [facility] 10-29-2024 09:59-0400 Heart rate 73 /min Octavio Velez MD Work Phone: [facility] 10-29-2024 09:59-0400 Respiratory rate 17 /min Octavio Velez MD Work Phone: [facility] 10-29-2024 09:59-0400 SaO2% (BldA) [Mass fraction] 98 % Octavio Velez MD Work Phone: [facility] 10-29-2024 09:59-0400 Systolic blood pressure 127 mm[Hg] Octavio Velez MD Work Phone: [facility] Encounters Encounter Date Encounter Type Care Provider Facility Start: 12-09-2024 ambulatory [facility] Facility:[facility] Start: 11-26-2024 [facility] Facility:[facility] Start: 11-25-2024 End: 11-25-2024 [facility] Facility:[facility] Start: 11-13-2024 End: 11-13-2024 ambulatory [place] [facility] Facility:[facility] Start: 11-09-2024 End: 11-09-2024 ambulatory [facility] Facility:[facility] Start: 10-30-2024 End: 10-30-2024 ambulatory OCTAVIO VELEZ [facility] Start: 10-30-2024 End: 10-30-2024 Subsequent hospital visit by physician Octavio Velez MD Work Phone: [facility] Comment on above: Iron deficiency anem ia due to chronic blood loss; Angiectasia of gastrointestinal tract; Imaging of gastrointestinal tract abnormal; Status post endoscopy Start: 10-29-2024 End: 10-30-2024 ambulatory PER HEARN [facility] Start: 10-29-2024 End: 10-30-2024 Evaluation and management of inpatient Gerson Mackenzie MD Work Phone: [facility] [place] [address] Comment on above: GI bleed (Primary Dx ) Start: 10-29-2024 End: 10-29-2024 Subsequent hospital visit by physician Octavio Velez MD Work Phone: [facility] Comment on above: Iron deficiency anem ia due to chronic blood loss; Angiectasia of gastrointestinal tract; Imaging of gastrointestinal tract abnormal; Status post endoscopy Start: 10-29-2024 End: 10-29-2024 [facility][1] OCTAVIO Benoit MAAGUSTIN [facility] Start: 10-28-2024 End: 10-28-2024 ambulatory Rowdy Bernabe Facility:[facility] Start: 08-17-2024 ambulatory Geeta Mckenzie Facility:[facility] Start: 08-17-2024 End: 08-17-2024 ambulatory Geeta Mckenzie Facility:[facility] Start: 07-31-2024 End: 07-31-2024 ambulatory Rowdy Bernabe Facility:[facility] Start: 07-30-2024 End: 07-30-2024 ambulatory Rowdy Bernabe Facility:[facility] Start: 07-23-2024 End: 07-24-2024 ambulatory Rowdy Bernabe Facility:[facility] Start: 07-23-2024 End: 07-23-2024 ambulatory Rowdy Bernabe Facility:[facility] Start: 07-21-2024 End: 07-21-2024 ambulatory Rowdy Bernabe Facility:[facility] Start: 07-09-2024 End: 07-09-2024 ambulatory Rowdy Bernabe Facility:[facility] Start: 07-07-2024 End: 07-09-2024 Evaluation and management of inpatient Rowdy Bernabe Facility:[facility] Start: 07-07-2024 ambulatory Rowdy Bernabe Facility:[facility] Start: 07-07-2024 ambulatory Rowdy Bernabe [facility] Start: 07-07-2024 End: 07-07-2024 ambulatory Geeta Mckenzie Facility:[facility] Start: 06-24-2024 ambulatory Aguilar Phan Facility:[facility] Start: 06-24-2024 End: 06-25-2024 ambulatory Rowdy Bernabe Facility:[facility] Start: 06-19-2024 End: 06-19-2024 ambulatory Rowdy Bernabe Facility:[facility] Start: 06-13-2024 ambulatory Sahil Tobin Facility :[facility] Start: 06-12-2024 ambulatory Sahil Tobin Facility :[facility] Start: 06-12-2024 End: 06-12-2024 ambulatory Jonas Cobb Facility:[facility] Start: 06-10-2024 ambulatory Aguilar Phan Facility:[facility] Start: 06-10-2024 End: 06-13-2024 Evaluation and management of inpatient Rowdy Bernabe Facility:[facility] Start: 06-10-2024 ambulatory Rowdy Bernabe Facility:[facility] Start: 06-02-2024 End: 06-02-2024 ambulatory Geeta Mckenzie Facility:[facility] Start: 05-20-2024 ambulatory Geeta Mckenzie [facility] Start: 05-19-2024 End: 05-19-2024 ambulatory Rowdy Bernabe Facility:[facility] Start: 05-18-2024 End: [facility] Start: 05-12-2024 End: 05-12-2024 ambulatory Jorge Hare Facility:[facility] Start: 03-27-2024 End: 03-27-2024 ambulatory [facility] Facility:[facility] Start: 03-25-2024 End: 03-25-2024 ambulatory Geeta Mckenzie Facility:[facility] Start: 03-25-2024 ambulatory Rowdy Bernabe [facility] Start: 03-25-2024 End: 03-25-2024 ambulatory [facility] Facility:[facility] Start: 02-28-2024 End: 02-28-2024 ambulatory Geeta Mckenzie Facility:[facility] Start: 01-13-2024 End: 01-14-2024 ambulatory [facility] Facility:[facility] Procedures Date Procedure Procedure Detail Performing Clinician Start: 10-30-2024 Glucose quantitative blood xcpt reagent strip Bhumika Rivera DO Work Phone: Start: 10-30-2024 Enteroscopy > 2nd pr tn abltj lesion Octavio Velez MD Work Phone: Start: 10-30-2024 Unlisted procedure s mall intestine Octavio Velez MD Work Phone: Start: 10-30-2024 Renal function panel Zainab Vance MD Work Phone: Start: 10-29-2024 End: 10-29-2024 TRANSFUSE RED BLOOD CELLS Meme hernandez MD Work Phone: Start: 10-29-2024 Cyanocobalamin vitamin b-12 Meme Plummer MD Work Phone: Start: 10-29-2024 VERAB/VERIFY ABORH Annita Plummer MD Work Phone: Start: 10-29-2024 PREPARE RBC Meme gill MD Work Phone: Start: 10-29-2024 ENDOSCOPY PROCEDURE NOT PERFORMED Octavio Velez MD Work Phone: Start: 10-29-2024 Blood typing serolog ic rh (d) Per Hearn MD Work Phone: Start: 10-29-2024 Comprehensive metabo lic panel Per Hearn MD Work Phone: Start: 10-29-2024 SLIDE REQUEST Meme Plummer MD Work Phone: Start: 06-09-2018 Colonoscopy Octavio wilson MD Work Phone: Plan of Treatment Date Care Activity Detail Author Start: 11-22-2028 DTaP/Tdap/Td Vaccine s (2 - Td or Tdap) DTaP/Tdap/Td Vaccines (2 - Td or Tdap) [facility] Start: 06-09-2028 Screening for malign ant neoplasm of colon [facility] Start: 10-30-2025 Diabetes mellitus screening Diabetes Screening [facility] Start: 10-29-2025 Diabetes mellitus screening Diabetes Screening [facility] Start: 10-30-2024 End: 10-30-2024 Patient encounter procedure 10/30/2024 1:00 PM EDT Appointment [facility] [address] [place] [id number] [place] [address] [place] [address] Adelita Hare RN [facility] Start: 10-12-2024 COVID-19 Vaccine ( season) COVID-19 Vaccine ( season) [facility] Start: 10-12-2024 Influenza vaccination Influenza Vacc ine (#1) [facility] Start: 2018 Abdominal aortic aneurysm screening Abdominal Aortic Aneurysm (AAA) Screening [facility] Start: 12-04-2016 Pneumococcal vaccination Pneumococcal Vaccine (2 of 2 - PCV) [facility] Start: 01-30-2016 Zoster Vaccines (2 o f 3) Zoster Vaccines (2 of 3) [facility] Start: 2013 Hepatitis B Vaccines (1 of 3 - Risk 3-dose series) Hepatitis B Vaccines (1 of 3 - Risk 3-dose series) [facility] Start: 2013 RSV High Risk: (Elde rly (60+) or Population) (1 - Risk 60-74 years 1-dose series) RSV High Risk: (Elderly (60+) or Population) (1 - Risk 60-74 years 1-dose series) [facility] Start: 10-24-2003 Screening for malign ant neoplasm of lung Lung Cancer Screening [facility] Start: 1954 MMR Vaccines (1 of 1 - Standard series) MMR Vaccines (1 of 1 - Standard series) [facility] Start: 1953 Annual wellness visit Welcome to Medicare Visit [facility] Start: 1953 Lipid panel Lipid Panel [facility] Start: 1953 Screening for malign ant neoplasm of colon [facility] End: 10-29-2024 Abo/Rh Group Test - STAT ([facility]) Abo/Rh Group Test - STAT ([facility]) Lab Routine Once (Lab) for 1 Occurrences starting 10/29/2024 until 10/29/2024 [facility] Service Area Work Phone: Comment on above: Once (Lab) for 1 Occ urrences starting 10/29/2024 until 10/29/2024 CBC W Auto Different ial panel - Blood CBC and Auto Differential Lab Routine Morning draw (Lab) until discontinued starting 10/30/2024, 1 completed [facility] Service Area Work Phone: Comment on above: Morning draw (Lab) u ntil discontinued starting 10/30/2024, 1 completed Electrocardiogram, 12-lead PRN ACS symptoms Electrocardiogram, 12-lead PRN ACS symptoms ECG Routine As needed until discontinued starting 10/29/2024 [facility] Work Phone: Comment on above: As needed until disc ontinued starting 10/29/2024 End: 10-29-2024 Moderate Sedation Moderate Sedation Procedures Routine Once for 1 Occurrences starting 10/29/2024 until 10/29/2024 [facility] Work Phone: Comment on above: Once for 1 Occurrenc es starting 10/29/2024 until 10/29/2024 End: 10-29-2024 Pulse oximetry, spot Pulse oximetry, spot Respiratory Care Routine Per unit standards until discontinued starting 10/29/2024 [facility] Work Phone: Comment on above: Per unit standards u ntil discontinued starting 10/29/2024 Immunizations Immunization Date Immunization Notes Care Provider Tim [facility] 12-19-2017 influenza virus vaccine, unspecified formulation Octavio Velez MD Work Phone: [facility] Work Phone: Payers Date Payer Category Payer Private Health Insurance [id number] 2024 Private Health Insurance [id number] 2024 Self-pay 2023 Private Health Insurance [id number] 2020 Dual Eligibility Med icare/Medicaid Organization [id number] 2020 Unknown [id number] 1953 Unknown [id number] 2..840.1.702396.3.579.2.124 1953 Unknown [id number] 2..840.1.633000.3.579.2.1245 1953 Unknown [id number] 2.840.1.309928.3.579.2.1245 Unknown [id number] 2.16.840.1.207383.3.579.2.462 Unknown [id number] 2.16.840.1.522280.3.579.2.462 Unknown [id number] 2.16.840.1.537758.3.579.2.462 Unknown [id number] 2.16.840.1.563969.3.579.2.462 Unknown [id number] 2.16.840.1.760324.3.579.2.462 Unknown [id number] 2.16.840.1.543332.3.579.2.462 Unknown [id number] 2.16.840.1.513306.3.579.2.462 Unknown [id number] 2.16.840.1.180857.3.579.2.462 Unknown [id number] 2.16.840.1.816164.3.579.2.462 Unknown [id number] 2..840.1.809298.3.579.2.462 Unknown [id number] 2..840.1.923174.3.579.2.462 Unknown [id number] 2.16.840.1.132638.3.579.2.462 Unknown [id number] 2.16.840.1.105970.3.579.2.462 Unknown [id number] 2.16.840.1.183361.3.579.2.462 Unknown [id number] 2.16.840.1.867577.3.579.2.462 Unknown [id number] 2.16.840.1.497707.3.579.2.462 Unknown [id number] 2.16.840.1.063346.3.579.2.462 Unknown [id number] 2.16.840.1.709201.3.579.2.462 Unknown [id number] 2.16.840.1.963517.3.579.2.462 Unknown [id number] 2.16.840.1.550456.3.579.2.462 Unknown [id number] 2.16.840.1.877742.3.579.2.462 Unknown [id number] 2.16.840.1.994373.3.579.2.462 Unknown [id number] 2.16.840.1.842018.3.579.2.462 Unknown [id number] 2.16.840.1.914368.3.579.2.462 Unknown [id number] 2.16840.1.302364.3.579.2.462 Unknown [id number] 2.16840.1.763590.3.579.2.462 Unknown [id number] 2.16840.1.073386.3.579.2.462 Unknown [id number] 2.840.1.077864.3.579.2.462 Unknown [id number] 2.16840.1.230862.3.579.2.462 Unknown [id number] 2.16840.1.506741.3.579.2.462 Unknown [id number] 2.16.840.1.131468.3.579.2.462 Unknown [id number] 2.16840.1.745133.3.579.2.462 Unknown [id number] 2.16840.1.114661.3.579.2.462 Unknown [id number] 2.16.840.1.061325.3.579.2.462 Unknown [id number] 2.16.840.1.612435.3.579.2.462 Unknown [id number] 2.16.840.1.923023.3.579.2.462 Unknown [id number] 2.16840.1.498634.3.579.2.462 Unknown [id number] 2.16.840.1.401591.3.579.2.462 Unknown [id number] 2.16.840.1.354260.3.579.2.462 Unknown [id number] 2.16.840.1.093075.3.579.2.462 Unknown [id number] 2.16.840.1.052379.3.579.2.462 Unknown [id number] 2.16840.1.870844.3.579.2.462 Unknown [id number] 2..840.1.403567.3.579.2.462 Unknown [id number] 2.840.1.390127.3.579.2.462 Unknown [id number] 2..840.1.194454.3.579.2.462 Unknown [id number] 2.840.1.023221.3.579.2.462 Unknown [id number] 2.840.1.371242.3.579.2.462 Unknown [id number] 2.840.1.048139.3.579.2.462 Unknown [id number] 2.840.1.216442.3.579.2.462 Unknown [id number] 2.840.1.095826.3.579.2.462 Unknown [id number] 2.840.1.443349.3.579.2.462 Unknown [id number] 2.840.1.115010.3.579.2.462 Unknown [id number] 2.840.1.024450.3.579.2.462 Unknown [id number] 2.16840.1.082231.3.579.2.462 Unknown [id number] 2.840.1.150780.3.579.2.462 Social History Date Type Detail Facility Start: 10-22-2024 Tobacco smoking stat us ALIS Ex-smoker [facility] Start: 1972 End: 06-30-2024 History of tobacco use Current smoker [facility] Work Phone: Start: 1972 End: 06-30-2024 History of tobacco use Cigarette Smoker [facility] Work Phone: Start: 10-22-2024 End: 10-29-2024 Cigarettes smoked current (pack per day) - Reported 2 [facility] Start: 10-22-2024 Tobacco use and exposure Smokeless tobacco non-user [facility] Work Phone: Start: 10-29-2024 End: 10-30-2024 Alcoholic beverage intake Ex-drinker (finding) [facility] Work Phone: Start: 10-29-2024 End: 10-30-2024 Tobacco use panel [facility] Within the last year , have you been afraid of your partner or ex-partner? No [facility] Work Phone: How often to you hav e a drink containing alcohol? Never [facility] Work Phone: Start: 01-06-2022 How many standard drinks containing alcohol do you have on a typical day? Patient does not drink [facility] Work Phone: How hard is it for y ou to pay for the very basics like food, housing, medical care, and heating Not very hard [facility] Work Phone: (I/We) worried jessie er (my/our) food would run out before (I/we) got money to buy more. Never true [facility] Work Phone: Start: 1955 Sex assigned at Not on file [facility] [place] Work Phone: Functional Status Date Assessment Result Facility 10-30-2024 [place] [facility] s everity rating scale screener - recent [C-SSRS] [facility] Work Phone: 10-30-2024 [facility] 10-29-2024 Total score [AUDIT-C] 0 10/30/19 25 2:00 PM EDT Tigist Acharya, MARTHA [facility] Work Phone: 10-29-2024 [facility] ionnaire 2 item (PHQ-2) [Reported] [facility] Work Phone: 10-29-2024 Functional status [facility] Work Phone: 10-29-2024 [place] - suicide s everity rating scale screener - recent [C-SSRS] [facility] Work Phone: 10-29-2024 [facility] Work Phone: Mental Status Date Assessment Result Facility 10-30-2024 Cognitive function finding Negat coreen 10/30/2024 11:20 AM EDT Ivonne Hawkins RN Negative [facility] Work Phone: Clinical Notes 06-13-2024 to 10-30-2024 Care Plan - Dalia Ellsworth RN - 10/30/2024 5:23 PM EDTCare Plan - Dalia Ellsworth RN - 10/30/2024 5:23 PM EDTCare Plan - Jessica Banegas RN - 10/29/2024 8:00 PM EDTDischarge Instructions Note Date & Type Note Facility 10-30-2024 Plan of care note The patient's goals for the shift include The clinical goals for the shift include To recieve blood products and remain stable during shift Pt dc to home, instructions reviewed with pt. Problem: Discharge Planning Goal: Discharge to home or other facility with appropriate resources Outcome: Progressing [facility] 10-30-2024 Miscellaneous Notes The patient's goals for the shift include The clinical goals for the shift include To recieve blood products and remain stable during shift Pt dc to home, instructions reviewed with pt. Problem: Discharge Planning Goal: Discharge to home or other facility with appropriate resources Outcome: Progressing The patient's goals for the shift include The clinical goals for the shift include To recieve blood products and remain stable during shift Over the shift, the patient did not make progress toward the following goals. Barriers to progression include . Recommendations to address these barriers include . The patient's goals for the shift include The clinical goals for the shift include to get answers Pt oriented to room, safety and comfort maintained. 69 y/o M w/ PMHx of ANABEL, hematochezia, prolonged NSAID use, bleeding polyps and angiodysplasias seen in colonoscopy and endoscopy done in OSH. Patient presented to [facility] for scheduled endoscopy appointment, and was instead admitted to the floor as they had been found to have acute on chronic anemia with hemoglobin of 6.8 on lab work done by primary care physician 10/28. Endoscopy was deferred and patient was admitted for evaluation, observation, and potential blood transfusion. Patient had no complaints when seen. Given initial Hgb finding of 7 and plan for endoscopy, patient was given 1 unit of pRBC as well as iron sucrose infusion, remained hemodynamically stable. On 10/30, endoscopy was performed which showed multiple small angioectasias in the duodenal bulb, second, third, fourth part of the duodenum without bleeding observed, and 5 nonbleeding angioectasias were visualized in the proximal jejunum. 11 total nonbleeding angioectasias were ablated with argon plasma coagulation, one 5 mm semipedunculated polyp in the second part of the duodenum was visualized, but not removed. A single small, non-bleeding diverticulum without inflammation in the second part of the duodenum was observed. Patient returned to the floor post enteroscopy and remained hemodynamically stable on room air. Lab work 10/30 was relatively unimpressive, pertinent for normocytic anemia with hemoglobin of 7.7. Patient tolerated restarted diet, and was evaluated to be safe for discharge to home with follow-up instructions: Follow up with Kristen Madrid MD, Gisele Vaughn MD, and Jeremy Owens MD - Inpatient GI Consult Service. Follow up with primary gastroenterology nurse practitioner, Loretta Lu NP. Follow up with primary inpatient auditor, Sahil Tobin DO, for future EGD for duodenal polyp removal and future push enteroscopies as needed for endoscopic treatment of duodenal and proximal jejunal angioectasias. Follow up with primary care nurse practitioner, Rowdy Guevara NP, as patient will likely require ongoing IV iron infusions on regular basis. documented in this encounter [facility] Work Phone: 10-30-2024 Hospital Discharg e instructions Abram Vance MD - 10/30/2024 4:33 PM EDT Discharge Instructions Dear Franki Espinoza, You were admitted to [facility] after blood work showed that you had a low hemoglobin level before your scheduled endoscopy. You were admitted to [facility] where you received a blood transfusion, and a push enteroscopy to replace the procedure scheduled for 10/29. During your procedure, the specialist visualized multiple areas in your small intestine they could have high risk of bleeding, which were all ablated (removed). They also saw 1 polyp in the beginning of your small intestine, which will likely need to be removed in the future. Medication changes: please review this paperwork carefully Please review the attached paperwork, and take medications as indicated Please avoid NSAIDs such as ibuprofen in the future, due to increased risk of stomach irritation and bleeding If you would like to forklift picker your medications from another pharmacy, ask your pharmacy to contact [facility] pharmacy to transfer over the prescriptions Appointments/Follow-Up: We have requested an automated system to call you to schedule; however if you do not hear from them in 3 days, please call [facility] appointment line: [phone] or to make the appointment yourself Follow up with Kristen Madrid MD, Gisele Vaughn MD, and Jeremy Owens MD - Inpatient GI Consult Service. Follow up with primary gastroenterology nurse practitioner, Loretta Lu NP. Follow up with primary inpatient auditor, Sahil Tobin DO, for future EGD for duodenal polyp removal and future push enteroscopies as needed for endoscopic treatment of duodenal and proximal jejunal angioectasias. Follow up with primary care nurse practitioner, Rowdy Guevara NP, as patient will likely require ongoing IV iron infusions on regular basis. Please call and schedule appointment with your primary care doctor within 2 week, tell them that patient was recently admitted to the hospital. If you need to establish with new primary care doctor, please call and schedule an appointment with [facility]: phone: [phone] It was a pleasure taking care of you, Your Care Team documented in this encounter [facility] Work Phone: 10-30-2024 History of Presen t illness Narrative 10/30/24 1021 Rapid Rounds Attendance Provider;Nurse;Care Transitions Expected Discharge Disposition Home Today we still await: Clinical stability (push enteroscopy today; need IV iron) Review at Escalation Rounds No escalation needed 1227-TCC attempted to meet pt to complete admission assessment but pt off the floor for his procedure at this time. Will attempt to meet pt at a later time. 1610-TCC attempted to complete admission assessment again with pt but MD at bedside. Will attempt to meet pt another time. Pharmacy Medication History Review Franki Espinoza is a 69 y.o. male admitted for GI bleed. Pharmacy reviewed the patient's [id number] medications and allergies for accuracy. Medications ADDED Albuterol inhaler Ascorbic acid 500 mg Cyanocobalamin 1,000 mcg Hydroxyzine HCl 25 mg Prazosin 2 mg Pseudoephedrine 30 mg Medications CHANGED Ferrous sulfate 325 mg directions updated: Take 1 tablet by mouth once daily in the evening Ibuprofen 600 mg directions updated: Take 1 tablet (600 mg) by mouth 3 times a day as needed for mild pain (1 - 3) Duo-neb directions updated: Take 3 mL by nebulization 2 times a day Medications REMOVED/NOT TAKING N/A The list below reflects the updated COMMUNITY AIDE list. Prior to Admission Medications Prescriptions Last Dose Informant FeroSuL 325 mg (65 mg iron) tablet 10/28/2024 Evening Self Sig: Take 1 tablet by mouth once daily in the evening. albuterol 90 mcg/actuation inhaler Self Sig: Inhale 2 puffs every 6 hours if needed for shortness of breath. ascorbic acid (Vitamin C) 500 mg tablet 10/28/2024 Evening Self Sig: Take 1 tablet (500 mg) by mouth once daily in the evening. With iron aspirin 81 mg EC tablet 10/29/2024 Morning Self Sig: Take 1 tablet (81 mg) by mouth once daily. buPROPion XL (Wellbutrin XL) 300 mg 24 hr tablet 10/29/2024 Morning Self Sig: Take 1 tablet (300 mg) by mouth once daily. Take at 9 AM Last filled 06/26/24 for 30 day supply budesonide (Pulmicort) 1 mg/2 mL nebulizer solution 10/29/2024 Morning Self Sig: INHALE THE CONTENTS OF ONE VIAL VIA NEBULIZER TWICE DAILY Last filled 07/19/24 for 30 day supply cyanocobalamin (Vitamin B-12) 1,000 mcg tablet 10/29/2024 Morning Self Sig: Take 1 tablet (1,000 mcg) by mouth once daily. donepezil (Aricept) 5 mg tablet 10/28/2024 Bedtime Self Sig: TAKE 1 TABLET BY MOUTH ONCE DAILY AT BEDTIME (9PM) hydrOXYzine HCL (Atarax) 25 mg tablet Self Sig: Take 1 tablet (25 mg) by mouth as needed at bedtime (sleep). No recent dispense history ibuprofen 600 mg tablet Self Sig: Take 1 tablet (600 mg) by mouth 3 times a day as needed for mild pain (1 - 3). ipratropium-albuteroL (Duo-Neb) 0.5-2.5 mg/3 mL nebulizer solution 10/29/2024 Morning Self Sig: Take 3 mL by nebulization 2 times a day. Last filled 07/13/24 for 10 day supply mv-min/folic/K1/lycopen/lutein (CENTRUM SILVER MEN ORAL) 10/29/2024 Morning Self Sig: Take 1 tablet by mouth once daily. omeprazole (PriLOSEC) [address] capsule 10/29/2024 Morning Self Sig: TAKE ONE CAPSULE BY MOUTH DAILY AT 9AM HALF AN HOUR BEFORE A MEAL Last filled 06/26/24 for 30 day supply prazosin (Minipress) 2 mg capsule Self Sig: Take 1 capsule (2 mg) by mouth as needed at bedtime (nightmares). No recent dispense history pseudoephedrine (Sudafed) 30 mg tablet Self Sig: Take 1 tablet (30 mg) by mouth every 4 hours if needed for congestion. rosuvastatin (Crestor) 20 mg tablet 10/28/2024 Bedtime Self Sig: Take 1 tablet (20 mg) by mouth once daily at bedtime. sertraline (Zoloft) 50 mg tablet 10/29/2024 Morning Self Sig: TAKE 1 TABLET BY MOUTH ONCE DAILY AT 9 AM Facility-Administered Medications: None The list below reflects the updated allergy list. Please review each documented allergy for additional clarification and justification. Allergies Reviewed by Bhumika Rivera DO on 10/29/2024 Severity Reactions Comments Bee Venom Protein (honey Bee) High Anaphylaxis Buspirone Not Specified Other Shaking, restless legs Sucralfate Not Specified Other, Unknown "Jaw locked up" Trazodone Not Specified Other Nightmares Patient declines M2B at discharge. Pharmacy has been updated to [facility] in [place]. Sources [facility] Pharmacy dispense history Patient Interview Good historian Medication list at bedside for review Additional Comments See highlighted comments in above table Patient reports adequate supply of home medications John Jim, DiegoD [facility] [id number] [address] [facility], Room# [address] [place] [phone] Please reach out via Secure Chat for questions, or if no response call [employer] or Pumant documented in this encounter [facility] Work Phone: 10-30-2024 Consult note Associated Order (s): IP CONSULT TO NUTRITION SERVICES Nutrition Initial Assessment: Nutrition Assessment Reason for Assessment: Provider consult order - nutrition assessment/recommendation Patient is a 69 y.o. male presenting with low hemoglobin and hematochezia. Per team, plan for endoscopy PMHx of ANABEL, hematochezia, prolonged NSAID use, bleeding polyps and angiodysplasias seen in colonoscopy and endoscopy Nutrition History: Food and Nutrient History: Pt reports his appetite has been good with no changes. States he eats 75-100% of 3 meals/day though his breakfast is small. Pt lists eating "quick stuff" such as sandwiches, jelly, etc. Suspect pt is not meeting EER with smaller food items. Pt amenable to Ensure Plus Vitamin/Herbal Supplement Use: MVI, vit C, and B12 per pt Food Allergy: (none per pt) Anthropometrics: Height: 177.8 cm (5' 10") Weight: 54.9 kg (121 lb 0.5 oz) BMI (Calculated): 17.37 IBW/kg (Dietitian Calculated): 75.5 kg Percent of IBW: 72 % Weight History: Wt Readings from Last 20 Encounters: 10/29/24 54.9 kg (121 lb 0.5 oz) 10/29/24 54.9 kg (121 lb) Weight Change %: Weight History / % Weight Change: Pt reports his weight fluctuates and can even have a 5 lb weight difference in one day. Per chart, pt with no weight history to assess Nutrition Focused Physical Exam Findings: Subcutaneous Fat Loss: Orbital Fat Pads: Mild-Moderate (slight dark circles and slight hollowing) Buccal Fat Pads: Severe (hollow, sunken and narrow face) Triceps: Severe (negligible fat tissue) Muscle Wasting: Temporalis: Severe (hollowed scooping depression) Pectoralis (Clavicular Region): Severe (protruding prominent clavicle) Deltoid/Trapezius: Severe (squared shoulders, acromion process prominent) Interosseous: Mild-Moderate (slightly depressed area between thumb and forefinger) Quadriceps: Mild-Moderate (mild depression on inner and outer thigh) Gastrocnemius: Severe (minimal muscle definition) Edema: Edema: none Physical Findings: Skin: Negative Digestive System Findings: Nausea, Vomiting (stress-related per pt) Mouth Findings: Chewing difficulty (declines modified texture diet) Teeth Findings: Impaired dentition Nutrition Significant Labs: CBC Trend: Results from last 7 days Lab Units 10/30/24 0810/29/24 1115 WBC AUTO x10*3/uL 6.8 7.9 RBC AUTO x10*6/uL 3.30* 2.86* HEMOGLOBIN g/dL 7.7* 7.0* HEMATOCRIT % 26.9* 23.5* MCV fL 82 82 PLATELETS AUTO x10*3/uL 409 442 , BG POCT trend: , Liver Function Trend: Results from last 7 days Lab Units 10/29/24 1115 ALK PHOS U/L 50 AST U/L 17 ALT U/L 10 BILIRUBIN TOTAL mg/dL 0.2 , Renal Lab Trend: Results from last 7 days Lab Units 10/30/24 0830 10/29/24 1115 POTASSIUM mmol/L 4.1 4.5 PHOSPHORUS mg/dL 3.2 -- SODIUM mmol/L 137 137 MAGNESIUM mg/dL 2.17 -- EGFR mL/min/1.73m*2 89 77 BUN mg/dL 19 22 CREATININE mg/dL 0.92 1.04 , Vit D: No results found for: VITD25 Nutrition Specific Medications: Scheduled medications ascorbic acid, 500 mg, oral, q PM [Held by provider] aspirin, 81 mg, oral, Daily budesonide, 1 mg, nebulization, BID buPROPion XL, 300 mg, oral, Daily cyanocobalamin, 1,000 mcg, oral, Daily donepezil, 5 mg, oral, Nightly [Held by provider] ferrous sulfate, 1 tablet, oral, Nightly pantoprazole, 40 mg, oral, Daily before breakfast rosuvastatin, 20 mg, oral, Nightly sertraline, 50 mg, oral, Daily Continuous medications Continuous Medications[1] PRN medications PRN Medications[2] I/O: ; Stool Appearance: Hard (10/30/24 0400) Dietary Orders (From admission, onward) Start Ordered 10/30/24 0001 NPO Diet Except: Sips with meds, Ice chips; Effective midnight Diet effective midnight Question Answer Comment Except: Sips with meds Except: Ice chips 10/29/24 1723 10/29/24 1509 May Participate in Room Service ( ROOM SERVICE MAY PARTICIPATE) Once Question: . Answer: Yes 10/29/24 1508 Estimated Needs: Total Energy Estimated Needs in 24 hours (kCal): 1650 kCal Method for Estimating Needs: 30 kcal/kg CBW Total Protein Estimated Needs in 24 Hours (g): (55-65 g) Method for Estimating 24 Hour Protein Needs: 1.0-1.2 g/kg CBW Total Fluid Estimated Needs in 24 Hours (mL): (1 ml/kcal or per med team) Nutrition Diagnosis Malnutrition Diagnosis Patient has Malnutrition Diagnosis: Yes Diagnosis Status: New Malnutrition Diagnosis: Severe malnutrition related to chronic disease or condition As Evidenced by: /= 1 month, severe fat loss and muscle wasting Nutrition Interventions/Recommendations Nutrition prescription for oral nutrition Nutrition Recommendations: Advance diet as tolerated. Obtain vit D levels iso severe malnutrition. Nutrition Interventions/Goals: Additional Interventions: Ordered Boost [facility] (530 kcal, 22 g pro) BID Education Documentation Discussed small frequent meals to promote intake Discussed tips to increase protein Provided pt with High Calorie/Protein Nutrition Therapy handout Nutrition Monitoring and Evaluation Estimated Energy Intake: Energy intake greater or equal to 75% of estimated energy needs Body Weight: Body weight - Promote weight druze Electrolyte and Renal Panel: Electrolytes within normal limits Glucose/Endocrine Profile: Glucose within normal limits (80-180 mg/dL) Vitamin Profile: Vitamin D, 25 hydroxy Goal Status: New goal(s) identified Time Spent (min): 60 minutes [1] [2] PRN medications: acetaminophen, [Held by provider] albuterol, hydrOXYzine HCL, ipratropium-albuteroL, polyethylene glycol, prazosin, [Held by provider] pseudoephedrine [facility] 10-30-2024 Consult note Associated Order (s): IP CONSULT TO NUTRITION SERVICES Nutrition Initial Assessment: Nutrition Assessment Reason for Assessment: Provider consult order - nutrition assessment/recommendation Patient is a 69 y.o. male presenting with low hemoglobin and hematochezia. Per team, plan for endoscopy PMHx of ANABEL, hematochezia, prolonged NSAID use, bleeding polyps and angiodysplasias seen in colonoscopy and endoscopy Nutrition History: Food and Nutrient History: Pt reports his appetite has been good with no changes. States he eats 75-100% of 3 meals/day though his breakfast is small. Pt lists eating "quick stuff" such as sandwiches, jelly, etc. Suspect pt is not meeting EER with smaller food items. Pt amenable to Ensure Plus Vitamin/Herbal Supplement Use: MVI, vit C, and B12 per pt Food Allergy: (none per pt) Anthropometrics: Height: 177.8 cm (5' 10") Weight: 54.9 kg (121 lb 0.5 oz) BMI (Calculated): 17.37 IBW/kg (Dietitian Calculated): 75.5 kg Percent of IBW: 72 % Weight History: Wt Readings from Last 20 Encounters: 10/29/24 54.9 kg (121 lb 0.5 oz) 10/29/24 54.9 kg (121 lb) Weight Change %: Weight History / % Weight Change: Pt reports his weight fluctuates and can even have a 5 lb weight difference in one day. Per chart, pt with no weight history to assess Nutrition Focused Physical Exam Findings: Subcutaneous Fat Loss: Orbital Fat Pads: Mild-Moderate (slight dark circles and slight hollowing) Buccal Fat Pads: Severe (hollow, sunken and narrow face) Triceps: Severe (negligible fat tissue) Muscle Wasting: Temporalis: Severe (hollowed scooping depression) Pectoralis (Clavicular Region): Severe (protruding prominent clavicle) Deltoid/Trapezius: Severe (squared shoulders, acromion process prominent) Interosseous: Mild-Moderate (slightly depressed area between thumb and forefinger) Quadriceps: Mild-Moderate (mild depression on inner and outer thigh) Gastrocnemius: Severe (minimal muscle definition) Edema: Edema: none Physical Findings: Skin: Negative Digestive System Findings: Nausea, Vomiting (stress-related per pt) Mouth Findings: Chewing difficulty (declines modified texture diet) Teeth Findings: Impaired dentition Nutrition Significant Labs: CBC Trend: Results from last 7 days Lab Units 10/30/24 0830 10/29/24 1115 WBC AUTO x10*3/uL 6.8 7.9 RBC AUTO x10*6/uL 3.30* 2.86* HEMOGLOBIN g/dL 7.7* 7.0* HEMATOCRIT % 26.9* 23.5* MCV fL 82 82 PLATELETS AUTO x10*3/uL 409 442 , BG POCT trend: , Liver Function Trend: Results from last 7 days Lab Units 10/29/24 1115 ALK PHOS U/L 50 AST U/L 17 ALT U/L 10 BILIRUBIN TOTAL mg/dL 0.2 , Renal Lab Trend: Results from last 7 days Lab Units 10/30/24 0830 10/29/24 1115 POTASSIUM mmol/L 4.1 4.5 PHOSPHORUS mg/dL 3.2 -- SODIUM mmol/L 137 137 MAGNESIUM mg/dL 2.17 -- EGFR mL/min/1.73m*2 89 77 BUN mg/dL 19 22 CREATININE mg/dL 0.92 1.04 , Vit D: No results found for: VITD25 Nutrition Specific Medications: Scheduled medications ascorbic acid, 500 mg, oral, q PM [Held by provider] aspirin, 81 mg, oral, Daily budesonide, 1 mg, nebulization, BID buPROPion XL, 300 mg, oral, Daily cyanocobalamin, 1,000 mcg, oral, Daily donepezil, 5 mg, oral, Nightly [Held by provider] ferrous sulfate, 1 tablet, oral, Nightly pantoprazole, 40 mg, oral, Daily before breakfast rosuvastatin, 20 mg, oral, Nightly sertraline, 50 mg, oral, Daily Continuous medications Continuous Medications[1] PRN medications PRN Medications[2] I/O: ; Stool Appearance: Hard (10/30/24 0400) Dietary Orders (From admission, onward) Start Ordered 10/30/24 0001 NPO Diet Except: Sips with meds, Ice chips; Effective midnight Diet effective midnight Question Answer Comment Except: Sips with meds Except: Ice chips 10/29/24 1723 10/29/24 1509 May Participate in Room Service ( ROOM SERVICE MAY PARTICIPATE) Once Question: . Answer: Yes 10/29/24 1508 Estimated Needs: Total Energy Estimated Needs in 24 hours (kCal): 1650 kCal Method for Estimating Needs: 30 kcal/kg CBW Total Protein Estimated Needs in 24 Hours (g): (55-65 g) Method for Estimating 24 Hour Protein Needs: 1.0-1.2 g/kg CBW Total Fluid Estimated Needs in 24 Hours (mL): (1 ml/kcal or per med team) Nutrition Diagnosis Malnutrition Diagnosis Patient has Malnutrition Diagnosis: Yes Diagnosis Status: New Malnutrition Diagnosis: Severe malnutrition related to chronic disease or condition As Evidenced by: </=75% EER for >/= 1 month, severe fat loss and muscle wasting Nutrition Interventions/Recommendations Nutrition prescription for oral nutrition Nutrition Recommendations: Advance diet as tolerated. Obtain vit D levels iso severe malnutrition. Nutrition Interventions/Goals: Additional Interventions: Ordered Boost VHC (530 kcal, 22 g pro) BID Education Documentation Discussed small frequent meals to promote intake Discussed tips to increase protein Provided pt with High Calorie/Protein Nutrition Therapy handout Nutrition Monitoring and Evaluation Estimated Energy Intake: Energy intake greater or equal to 75% of estimated energy needs Body Weight: Body weight - Promote weight druze Electrolyte and Renal Panel: Electrolytes within normal limits Glucose/Endocrine Profile: Glucose within normal limits (80-180 mg/dL) Vitamin Profile: Vitamin D, 25 hydroxy Goal Status: New goal(s) identified Time Spent (min): 60 minutes [1] [2] PRN medications: acetaminophen, [Held by provider] albuterol, hydrOXYzine HCL, ipratropium-albuteroL, polyethylene glycol, prazosin, [Held by provider] pseudoephedrine documented in this encounter [facility] Work Phone: 10-29-2024 Plan of care note The patient's goals for the shift include The clinical goals for the shift include To recieve blood products and remain stable during shift Over the shift, the patient did not make progress toward the following goals. Barriers to progression include . Recommendations to address these barriers include . [facility] 10-29-2024 Plan of care note The patient's goals for the shift include The clinical goals for the shift include to get answers Pt oriented to room, safety and comfort maintained. [facility] Work Phone: 10-29-2024 Hospital Note Formatting of t his note might be different from the original. 69 y/o M w/ PMHx of ANABEL, hematochezia, prolonged NSAID use, bleeding polyps and angiodysplasias seen in colonoscopy and endoscopy done in OSH. Patient presented to [facility] for scheduled endoscopy appointment, and was instead admitted to the floor as they had been found to have acute on chronic anemia with hemoglobin of 6.8 on lab work done by primary care physician 10/28. Endoscopy was deferred and patient was admitted for evaluation, observation, and potential blood transfusion. Patient had no complaints when seen. Given initial Hgb finding of 7 and plan for endoscopy, patient was given 1 unit of pRBC as well as iron sucrose infusion, remained hemodynamically stable. On 10/30, endoscopy was performed which showed multiple small angioectasias in the duodenal bulb, second, third, fourth part of the duodenum without bleeding observed, and 5 nonbleeding angioectasias were visualized in the proximal jejunum. 11 total nonbleeding angioectasias were ablated with argon plasma coagulation, one 5 mm semipedunculated polyp in the second part of the duodenum was visualized, but not removed. A single small, non-bleeding diverticulum without inflammation in the second part of the duodenum was observed. Patient returned to the floor post enteroscopy and remained hemodynamically stable on room air. Lab work 10/30 was relatively unimpressive, pertinent for normocytic anemia with hemoglobin of 7.7. Patient tolerated restarted diet, and was evaluated to be safe for discharge to home with follow-up instructions: Follow up with Kristen Madrid MD, Gisele Vaughn MD, and Jeremy Owens MD - Inpatient GI Consult Service. Follow up with primary gastroenterology nurse practitioner, Loretta Lu NP. Follow up with primary inpatient auditor, Sahil Tobin DO, for future EGD for duodenal polyp removal and future push enteroscopies as needed for endoscopic treatment of duodenal and proximal jejunal angioectasias. Follow up with primary care nurse practitioner, Rowdy Guevara NP, as patient will likely require ongoing IV iron infusions on regular basis. [facility] Work Phone: 10-29-2024 History and physical note History Of Present Illness Franki Espinoza is a 69 y.o. male presenting with low hemoglobin and hematochezia. Limited history noted on chart review. Patient has a history of ANABEL (diagnosed 6 years ago) on iron supplements (on FeSO4 325mg taken at night with vitC), as well as dark stools which started in May. Patient came to the hospital as he was scheduled for an endoscopy today, however he was called by his primary provider informing him that his blood work showed a hemoglobin of 6.8 and advised him to go to the ER. The patient did not do so and attended his scheduled appointment instead. Endoscopy was canceled and patient was admitted to medicine for evaluation of anemia. 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 During that admission, patient was noted to have low hemoglobin levels (~5.5) requiring 3 units of pRBCs, and stated to have noticed some brownish blood with bowel movements and darker stools which started around the time when he got the stent placed. Patient has had two colonoscopies, an upper endoscopy and a capsule endoscopy done at [facility], [place], [place]. The reports were faxed and below is a summary of findings: On 06/13/24 a colonoscopy was performed which showed diverticulosis in the rectosigmoid, sigmoid and descending colon. A 15mm sessile polyp in the splenic flexure which was resected. A small localized angiodysplastic lesion with bleeding was found in the rectum, which was coagulated with a monopolar probe. A 5mm sessile polyp was seen in the rectosigmoid colonm removed with forceps. No pathology report was faxed for the polyps resected during this colonoscopy. On 07/08/24 patient had a colonoscopy which revealed a single bleeding angiodysplasia which was treated with a monopolar probe. On 07/09/24 patient had an upper endoscopy during that admission which showed a large hiatal hernia and a single 14mm sessile bleeding polyp in the fourth portion of the duodenum, and was resected with minimal bleeding. Pathological report of polyp showed adenoma. A capsule endoscopy done on 07/31/24 revealed intermittent bleeding from angiodysplasic lesions in the small bowel. When seen in unit, patient was asymptomatic and had no complaints overall. He was pleasant and cooperative and was able to provide a detailed history. On further questioning regarding anemia, patient denied having hematemesis however he did note having occasional bouts of vomiting which he attributes to stress, for which he takes ondansetron. Patient states to have vomited a week ago. Patient states to have 0-4 bowel movements a day. Patient describes the blood as "dark-red or brown," and not in large quantities. Denies seeing bright red blood. Blood is present with almost every bowel movements. Patient denies changes in appetite. Patient denies unintended weight loss. Patient has a prolonged history of ibuprofen use (states to have been put on ibuprofen 800mg TID PRN 15 years ago, reduced to 600mg and put on PPI). Patient denies using ibuprofen daily, and states to have not used any in at least week. Patient is on ASA 81mg. Past Medical History Medical History[1] Surgical History Surgical History[2] Social History He reports that he quit smoking about 3 months ago. His smoking use included cigarettes. He started smoking about 54 years ago. He has a 107.4 pack-year smoking history. He has never used smokeless tobacco. He reports that he does not currently use alcohol. He reports current drug use. Frequency: 4.00 times per week. Drug: Marijuana. Family History Family History[3] Allergies Bee venom protein (honey bee), Buspirone, Sucralfate, and Trazodone Review of Systems Constitutional: Negative for appetite change, chills, diaphoresis, fatigue and fever. HENT: Positive for congestion and rhinorrhea. Eyes: Negative. Respiratory: Negative for cough, chest tightness, shortness of breath and wheezing. Cardiovascular: Negative for chest pain and leg swelling. Gastrointestinal: Positive for blood in stool. Negative for abdominal pain, anal bleeding, constipation, diarrhea, nausea and vomiting. Genitourinary: Negative. Musculoskeletal: Negative. Neurological: Negative. Hematological: Negative. Psychiatric/Behavioral: Negative. All other systems reviewed and are negative. Physical Exam Vitals reviewed. Constitutional: Appearance: He is underweight. Comments: Multiple tattoos over various body parts Eyes: Extraocular Movements: Extraocular movements intact. Cardiovascular: Rate and Rhythm: Normal rate and regular rhythm. Heart sounds: Normal heart sounds. No murmur heard. Pulmonary: Effort: No respiratory distress. Breath sounds: Normal breath sounds. Abdominal: Palpations: Abdomen is soft. Tenderness: There is no abdominal tenderness. Skin: General: Skin is warm. Neurological: General: No focal deficit present. Mental Status: He is alert. Mental status is at baseline. Psychiatric: Mood and Affect: Mood normal. Behavior: Behavior normal. Last Recorded Vitals Blood pressure 123/57, pulse 76, temperature 36.4 C (97.5 F), temperature source Temporal, resp. rate 12, height 1.778 m (5' 10"), weight 54.9 kg (121 lb 0.5 oz), SpO2 97%. Relevant Results Scheduled medications Scheduled Medications[4] Continuous medications Continuous Medications[5] PRN medications PRN Medications[6] Results for orders placed or performed during the hospital encounter of 10/29/24 (from the past 24 hours) Iron and TIBC Result Value Ref Range Iron 13 (L) 35 - 150 ug/dL UIBC 386 (H) 110 - 370 ug/dL TIBC 399 240 - 445 ug/dL % Saturation 3 (L) 25 - 45 % Ferritin Result Value Ref Range Ferritin 13 (L) 20 - 300 ng/mL TSH Result Value Ref Range Thyroid Stimulating Hormone 2.21 0.44 - 3.98 mIU/L Procedure Not Performed Result Date: 10/29/2024 Table formatting from the original result was not included. This procedure was not performed. Procedure: ENTEROSCOPY [GI32] Cancel Information Procedure Not Performed Reason Other Procedure Not Performed Comments Patient needed labs and possible blood transfusion Assessment & Plan 69 y/o M w/ PMHx of ANABEL, hematochezia, prolonged NSAID use, bleeding polyps and angiodysplasias seen in colonoscopy and endoscopy, presented to [facility] for a scheduled endoscopy appointment and was found to have Hgb 6.8 by primary care provider. Endoscopy was deferred and patient was admitted for evaluation, observation, and potential blood transfusion. Patient had no complaints when seen. Given Hgb finding of 7, low iron and ferritin, and plan for endoscopy, will be given 1 pRBC and iron sucrose infusion. Will continue to monitor and investigate for causes of anemia. # Iron-Deficiency anemia, ? Hematochezia :: Hx of anemia and dark stools diagnosed in May, found to be due to iron deficiency, on iron supplements :: Bleeding polyps and angiodysplasias seen in colonoscopies and endoscopy done in April :: Capsule endoscopy done in July showed intermittent bleeding in small bowel :: Was scheduled for endoscopy on 10/29/[address] [facility], deferred d/t patient's blood work done at OSH showed Hgb 6.8. Hgb on admission was 7 :: Labs on admission consistent with ANABEL Plan: Due for endoscopy on 10/30 Home ASA 81mg held Take photo of BM for evaluation of blood by primary team Peripheral blood smear Serum B12, serum folate levels, serum haptoglobin Continue home ferrous sulfate 325mg every day (taken w/ Vit C), B12 1000mcg every day Repeat CBC/diff tomorrow 1 pRBC infusion Iron sucrose 300mg infusion # Memory disturbances :: Patient states to have been more forgetful, memory test showed deficits, however did not meet criteria to be diagnosed with dementia :: Strong family history of Alzheimer's dementia in both sides of family :: No follow up with psychiatrist or neurologist :: Patient was placed on 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 at 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: Continue 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 qHS # Depression, anxiety :: On sertraline 50mg, bupropion XL 300mg 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 :: Unknown if MDD of SAD, states to be worse during wintertime, used to take sertraline during winter only :: Takes hydroxyzine 25mg PRN at night as a sleep aid :: Takes prazosin 2mg at bedtime PRN for nightmares :: No follow up with psychiatrist Plan: Continue sertraline 50mg every day, bupropion XL 300mg every day Continue PRN hydroxyzine 25mg at bedtime for anxiety or sleep issues Continue PRN prazosin 2mg at bedtime for nightmares # COPD, Emphysema, Asthma :: Previous smoker, smoked for ~50 years Plan: Continue home budesonide 1mg neb BID Continue ipratropium-albuterol 0.5/2.5mg q6h PRN # Hyperlipidemia Plan: Continue home rosuvastatin 20mg at bedtime # Chronic pain :: On home ibuprofen 600mg TID PRN Plan: AVOID NSAIDS Avoid opioids and other controlled Rx (patient preference, hx of opioid-use disorder in remission) APAP 975mg PRN QID # Low BMI :: 17.37 on admission :: No changes in diet, states to have "high metabolism" Plan: Dietetics consult ======== Fluids: PRN Electrolytes: PRN, keep K>4. Mg>2, PO4>3 Nutrition: regular GI ppx: pantoprazole 40mg qD DVT ppx: SCDs, encourage ambulation Bowel care: PEG PRN Abx: N/A O2: RA Code Status: DNR, intubation allowed (confirmed on admission) NOK: sister, Alba Tsai, Patient seen and discussed with attending, Dr. Rivera. Plan is not formalized until note is attested by attending. Davi Davis MD Neurology PGY-1 [1] Past Medical History: Diagnosis Date Anemia O06/2019 Anxiety 07/1994 Asthma 12/2021 Colon polyp O06/2024 COPD (chronic obstructive pulmonary disease) (Multi) 12/2019 Depression O05/1972 GERD (gastroesophageal reflux disease) O07/2010 Hepatitis C Lung disease O06/2021 Pancreatitis ([facility]) Don't remember [2] Past Surgical History: Procedure Laterality Date CHOLECYSTECTOMY O06/2003 [3] Family History Problem Relation Name Age of Onset Diabetes Mother Leigha Daugherty 50 - 59 [4] ascorbic acid, 500 mg, oral, q PM [Held by provider] aspirin, 81 mg, oral, Daily budesonide, 1 mg, nebulization, BID [START ON 10/30/2024] buPROPion XL, 300 mg, oral, Daily [START ON 10/30/2024] cyanocobalamin, 1,000 mcg, oral, Daily donepezil, 5 mg, oral, Nightly ferrous sulfate, 1 tablet, oral, Nightly iron sucrose, 300 mg, intravenous, Once [START ON 10/30/2024] pantoprazole, 40 mg, oral, Daily before breakfast rosuvastatin, 20 mg, oral, Nightly [START ON 10/30/2024] sertraline, 50 mg, oral, Daily [5] [6] PRN medications: acetaminophen, [Held by provider] albuterol, hydrOXYzine HCL, ipratropium-albuteroL, polyethylene glycol, prazosin, [Held by provider] pseudoephedrine Cosigned by Bhumika Rivera DO at 10/30/2024 2:52 PM EDT Associated attestation - Bhumika Rivera DO - 10/30/2024 2:52 PM EDT Attending Physician Attestation I saw and evaluated the patient. I personally obtained the wong and critical portions of the history and physical exam or was physically present for wong and critical portions performed by the resident. I reviewed the resident's documentation and discussed the patient with the resident. I agree with the documentation as detailed in the note unless stated otherwise in this attestation. Patient admitted after planned outpatient enteroscopy had to be postponed due to acute anemia (Hgb 6.8). On chart review, the patient has had history of ongoing GI bleeds and ANABEL for the past 5 months. He has undergone EGD, colonoscopy, and capsule endoscopy with results concerning for AVMs in the small bowel actively bleeding. Patient seen and examined at bedside. No signs of acute bleeding on stool (no melena or BRBPR) at this time. He reports only taking iron pills once daily. He also reports ongoing ibuprofen use to help with his back pain, even though he knows it tears up my stomach. Hgb check here showed Hgb 7.0. Given impending procedure tomorrow with known ongoing bleeding, will give 1 unit pRBCs and recheck post transfusion. Iron levels checked also remain deficient, likely due to ongoing bleeding. Plan to give IV iron while inpatient as well. Anticipate can be discharged home tomorrow if tolerating diet and Hgb stable after procedure, barring any complications. Level of MDM: High Risk: High The patient/family had opportunity to ask questions. All questions were answered to the best of my ability. [facility] Work Phone: 10-29-2024 History and physical note History Of Present Illness Franki Espinoza is a 69 y.o. male presenting with low hemoglobin and hematochezia. Limited history noted on chart review. Patient has a history of ANABEL (diagnosed 6 years ago) on iron supplements (on FeSO4 325mg taken at night with vitC), as well as dark stools which started in May. Patient came to the hospital as he was scheduled for an endoscopy today, however he was called by his primary provider informing him that his blood work showed a hemoglobin of 6.8 and advised him to go to the ER. The patient did not do so and attended his scheduled appointment instead. Endoscopy was canceled and patient was admitted to medicine for evaluation of anemia. 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 During that admission, patient was noted to have low hemoglobin levels (~5.5) requiring 3 units of pRBCs, and stated to have noticed some brownish blood with bowel movements and darker stools which started around the time when he got the stent placed. Patient has had two colonoscopies, an upper endoscopy and a capsule endoscopy done at [facility], [place], [place]. The reports were faxed and below is a summary of findings: On 06/13/24 a colonoscopy was performed which showed diverticulosis in the rectosigmoid, sigmoid and descending colon. A 15mm sessile polyp in the splenic flexure which was resected. A small localized angiodysplastic lesion with bleeding was found in the rectum, which was coagulated with a monopolar probe. A 5mm sessile polyp was seen in the rectosigmoid colonm removed with forceps. No pathology report was faxed for the polyps resected during this colonoscopy. On 07/08/24 patient had a colonoscopy which revealed a single bleeding angiodysplasia which was treated with a monopolar probe. On 07/09/24 patient had an upper endoscopy during that admission which showed a large hiatal hernia and a single 14mm sessile bleeding polyp in the fourth portion of the duodenum, and was resected with minimal bleeding. Pathological report of polyp showed adenoma. A capsule endoscopy done on 07/31/24 revealed intermittent bleeding from angiodysplasic lesions in the small bowel. When seen in unit, patient was asymptomatic and had no complaints overall. He was pleasant and cooperative and was able to provide a detailed history. On further questioning regarding anemia, patient denied having hematemesis however he did note having occasional bouts of vomiting which he attributes to stress, for which he takes ondansetron. Patient states to have vomited a week ago. Patient states to have 0-4 bowel movements a day. Patient describes the blood as "dark-red or brown," and not in large quantities. Denies seeing bright red blood. Blood is present with almost every bowel movements. Patient denies changes in appetite. Patient denies unintended weight loss. Patient has a prolonged history of ibuprofen use (states to have been put on ibuprofen 800mg TID PRN 15 years ago, reduced to 600mg and put on PPI). Patient denies using ibuprofen daily, and states to have not used any in at least week. Patient is on ASA 81mg. Past Medical History Medical History[1] Surgical History Surgical History[2] Social History He reports that he quit smoking about 3 months ago. His smoking use included cigarettes. He started smoking about 54 years ago. He has a 107.4 pack-year smoking history. He has never used smokeless tobacco. He reports that he does not currently use alcohol. He reports current drug use. Frequency: 4.00 times per week. Drug: Marijuana. Family History Family History[3] Allergies Bee venom protein (honey bee), Buspirone, Sucralfate, and Trazodone Review of Systems Constitutional: Negative for appetite change, chills, diaphoresis, fatigue and fever. HENT: Positive for congestion and rhinorrhea. Eyes: Negative. Respiratory: Negative for cough, chest tightness, shortness of breath and wheezing. Cardiovascular: Negative for chest pain and leg swelling. Gastrointestinal: Positive for blood in stool. Negative for abdominal pain, anal bleeding, constipation, diarrhea, nausea and vomiting. Genitourinary: Negative. Musculoskeletal: Negative. Neurological: Negative. Hematological: Negative. Psychiatric/Behavioral: Negative. All other systems reviewed and are negative. Physical Exam Vitals reviewed. Constitutional: Appearance: He is underweight. Comments: Multiple tattoos over various body parts Eyes: Extraocular Movements: Extraocular movements intact. Cardiovascular: Rate and Rhythm: Normal rate and regular rhythm. Heart sounds: Normal heart sounds. No murmur heard. Pulmonary: Effort: No respiratory distress. Breath sounds: Normal breath sounds. Abdominal: Palpations: Abdomen is soft. Tenderness: There is no abdominal tenderness. Skin: General: Skin is warm. Neurological: General: No focal deficit present. Mental Status: He is alert. Mental status is at baseline. Psychiatric: Mood and Affect: Mood normal. Behavior: Behavior normal. Last Recorded Vitals Blood pressure 123/57, pulse 76, temperature 36.4 C (97.5 F), temperature source Temporal, resp. rate 12, height 1.778 m (5' 10"), weight 54.9 kg (121 lb 0.5 oz), SpO2 97%. Relevant Results Scheduled medications Scheduled Medications[4] Continuous medications Continuous Medications[5] PRN medications PRN Medications[6] Results for orders placed or performed during the hospital encounter of 10/29/24 (from the past 24 hours) Iron and TIBC Result Value Ref Range Iron 13 (L) 35 - 150 ug/dL UIBC 386 (H) 110 - 370 ug/dL TIBC 399 240 - 445 ug/dL % Saturation 3 (L) 25 - 45 % Ferritin Result Value Ref Range Ferritin 13 (L) 20 - 300 ng/mL TSH Result Value Ref Range Thyroid Stimulating Hormone 2.21 0.44 - 3.98 mIU/L Procedure Not Performed Result Date: 10/29/2024 Table formatting from the original result was not included. This procedure was not performed. Procedure: ENTEROSCOPY [GI32] Cancel Information Procedure Not Performed Reason Other Procedure Not Performed Comments Patient needed labs and possible blood transfusion Assessment & Plan 69 y/o M w/ PMHx of ANABEL, hematochezia, prolonged NSAID use, bleeding polyps and angiodysplasias seen in colonoscopy and endoscopy, presented to [facility] for a scheduled endoscopy appointment and was found to have Hgb 6.8 by primary care provider. Endoscopy was deferred and patient was admitted for evaluation, observation, and potential blood transfusion. Patient had no complaints when seen. Given Hgb finding of 7, low iron and ferritin, and plan for endoscopy, will be given 1 pRBC and iron sucrose infusion. Will continue to monitor and investigate for causes of anemia. # Iron-Deficiency anemia, ? Hematochezia :: Hx of anemia and dark stools diagnosed in May, found to be due to iron deficiency, on iron supplements :: Bleeding polyps and angiodysplasias seen in colonoscopies and endoscopy done in April :: Capsule endoscopy done in July showed intermittent bleeding in small bowel :: Was scheduled for endoscopy on 10/29/[address] [facility], deferred d/t patient's blood work done at OSH showed Hgb 6.8. Hgb on admission was 7 :: Labs on admission consistent with ANABEL Plan: Due for endoscopy on 10/30 Home ASA 81mg held Take photo of BM for evaluation of blood by primary team Peripheral blood smear Serum B12, serum folate levels, serum haptoglobin Continue home ferrous sulfate 325mg every day (taken w/ Vit C), B12 1000mcg every day Repeat CBC/diff tomorrow 1 pRBC infusion Iron sucrose 300mg infusion # Memory disturbances :: Patient states to have been more forgetful, memory test showed deficits, however did not meet criteria to be diagnosed with dementia :: Strong family history of Alzheimer's dementia in both sides of family :: No follow up with psychiatrist or neurologist :: Patient was placed on 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 at 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: Continue 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 qHS # Depression, anxiety :: On sertraline 50mg, bupropion XL 300mg 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 :: Unknown if MDD of SAD, states to be worse during wintertime, used to take sertraline during winter only :: Takes hydroxyzine 25mg PRN at night as a sleep aid :: Takes prazosin 2mg at bedtime PRN for nightmares :: No follow up with psychiatrist Plan: Continue sertraline 50mg every day, bupropion XL 300mg every day Continue PRN hydroxyzine 25mg at bedtime for anxiety or sleep issues Continue PRN prazosin 2mg at bedtime for nightmares # COPD, Emphysema, Asthma :: Previous smoker, smoked for ~50 years Plan: Continue home budesonide 1mg neb BID Continue ipratropium-albuterol 0.5/2.5mg q6h PRN # Hyperlipidemia Plan: Continue home rosuvastatin 20mg at bedtime # Chronic pain :: On home ibuprofen 600mg TID PRN Plan: AVOID NSAIDS Avoid opioids and other controlled Rx (patient preference, hx of opioid-use disorder in remission) APAP 975mg PRN QID # Low BMI :: 17.37 on admission :: No changes in diet, states to have "high metabolism" Plan: Dietetics consult ======== Fluids: PRN Electrolytes: PRN, keep K>4. Mg>2, PO4>3 Nutrition: regular GI ppx: pantoprazole 40mg qD DVT ppx: SCDs, encourage ambulation Bowel care: PEG PRN Abx: N/A O2: RA Code Status: DNR, intubation allowed (confirmed on admission) NOK: sister, Alba Tsai, Patient seen and discussed with attending, Dr. Rivera. Plan is not formalized until note is attested by attending. Davi Davis MD Neurology PGY-1 [1] Past Medical History: Diagnosis Date Anemia O06/2019 Anxiety 07/1994 Asthma 12/2021 Colon polyp O06/2024 COPD (chronic obstructive pulmonary disease) (Multi) 12/2019 Depression O05/1972 GERD (gastroesophageal reflux disease) O07/2010 Hepatitis C Lung disease O06/2021 Pancreatitis ([facility]) Don't remember [2] Past Surgical History: Procedure Laterality Date CHOLECYSTECTOMY O06/2003 [3] Family History Problem Relation Name Age of Onset Diabetes Mother Legiha Daugherty 50 - 59 [4] ascorbic acid, 500 mg, oral, q PM [Held by provider] aspirin, 81 mg, oral, Daily budesonide, 1 mg, nebulization, BID [START ON 10/30/2024] buPROPion XL, 300 mg, oral, Daily [START ON 10/30/2024] cyanocobalamin, 1,000 mcg, oral, Daily donepezil, 5 mg, oral, Nightly ferrous sulfate, 1 tablet, oral, Nightly iron sucrose, 300 mg, intravenous, Once [START ON 10/30/2024] pantoprazole, 40 mg, oral, Daily before breakfast rosuvastatin, 20 mg, oral, Nightly [START ON 10/30/2024] sertraline, 50 mg, oral, Daily [5] [6] PRN medications: acetaminophen, [Held by provider] albuterol, hydrOXYzine HCL, ipratropium-albuteroL, polyethylene glycol, prazosin, [Held by provider] pseudoephedrine Cosigned by Bhumika Rivera DO at 10/30/2024 2:52 PM EDT Associated attestation - Bhumika Rivera DO - 10/30/2024 2:52 PM EDT Attending Physician Attestation I saw and evaluated the patient. I personally obtained the wong and critical portions of the history and physical exam or was physically present for wong and critical portions performed by the resident. I reviewed the resident's documentation and discussed the patient with the resident. I agree with the documentation as detailed in the note unless stated otherwise in this attestation. Patient admitted after planned outpatient enteroscopy had to be postponed due to acute anemia (Hgb 6.8). On chart review, the patient has had history of ongoing GI bleeds and ANABEL for the past 5 months. He has undergone EGD, colonoscopy, and capsule endoscopy with results concerning for AVMs in the small bowel actively bleeding. Patient seen and examined at bedside. No signs of acute bleeding on stool (no melena or BRBPR) at this time. He reports only taking iron pills once daily. He also reports ongoing ibuprofen use to help with his back pain, even though he knows it tears up my stomach. Hgb check here showed Hgb 7.0. Given impending procedure tomorrow with known ongoing bleeding, will give 1 unit pRBCs and recheck post transfusion. Iron levels checked also remain deficient, likely due to ongoing bleeding. Plan to give IV iron while inpatient as well. Anticipate can be discharged home tomorrow if tolerating diet and Hgb stable after procedure, barring any complications. Level of MDM: High Risk: High The patient/family had opportunity to ask questions. All questions were answered to the best of my ability. documented in this encounter [facility] Work Phone: 10-29-2024 Note Table formatting fro m the original result was not included. This procedure was not performed. Procedure: ENTEROSCOPY [GI32] Cancel Information Procedure Not Performed Reason Other Procedure Not Performed Comments Patient needed labs and possible blood transfusion [facility] Work Phone: 10-29-2024 Note Table formatting fro m the original result was not included. This procedure was not performed. Procedure: ENTEROSCOPY [GI32] Cancel Information Procedure Not Performed Reason Other Procedure Not Performed Comments Patient needed labs and possible blood transfusion [facility] Work Phone: 10-29-2024 Note Table formatting fro m the original result was not included. This procedure was not performed. 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 endoscopy unit for a single balloon assisted enteroscopy. Full records are not available. The patient has a history of iron deficiency anemia and reportedly had upper endoscopy and colonoscopy performed and required multiple packed RBCs transfusion over the last few months. He also noted darker stool over the last few months. He had a capsule endoscopy performed on July 31, 2024 that per scanned report showed intermittent bleeding lesions in the small bowel at 38 and 41 minutes. Of note his gastric passage time was about 23 minutes. The patient presents today for enteroscopy. After discussion with the patient and reviewing labs from yesterday, the patient had a hemoglobin of 6.8 yesterday and he received a call this morning from the ordering provider and was advised to go to the ER. The patient did not go to the ER and he came here for the scheduled procedure. The procedure will be canceled for today. The patient will be directly admitted. We will check CBC, CMP, and blood type and screen. He will likely need a pRBC transfusion. Plan for enteroscopy tomorrow. [facility] Work Phone: 10-29-2024 Miscellaneous Notes 69-year-old man who presents to [facility] endoscopy unit for a single balloon assisted enteroscopy. Full records are not available. The patient has a history of iron deficiency anemia and reportedly had upper endoscopy and colonoscopy performed and required multiple packed RBCs transfusion over the last few months. He also noted darker stool over the last few months. He had a capsule endoscopy performed on July 31, 2024 that per scanned report showed intermittent bleeding lesions in the small bowel at 38 and 41 minutes. Of note his gastric passage time was about 23 minutes. The patient presents today for enteroscopy. After discussion with the patient and reviewing labs from yesterday, the patient had a hemoglobin of 6.8 yesterday and he received a call this morning from the ordering provider and was advised to go to the ER. The patient did not go to the ER and he came here for the scheduled procedure. The procedure will be canceled for today. The patient will be directly admitted. We will check CBC, CMP, and blood type and screen. He will likely need a pRBC transfusion. Plan for enteroscopy tomorrow. documented in this encounter [facility] Work Phone: 10-29-2024 Miscellaneous Notes 69-year-old man who presents to [facility] endoscopy unit for a single balloon assisted enteroscopy. Full records are not available. The patient has a history of iron deficiency anemia and reportedly had upper endoscopy and colonoscopy performed and required multiple packed RBCs transfusion over the last few months. He also noted darker stool over the last few months. He had a capsule endoscopy performed on July 31, 2024 that per scanned report showed intermittent bleeding lesions in the small bowel at 38 and 41 minutes. Of note his gastric passage time was about 23 minutes. The patient presents today for enteroscopy. After discussion with the patient and reviewing labs from yesterday, the patient had a hemoglobin of 6.8 yesterday and he received a call this morning from the ordering provider and was advised to go to the ER. The patient did not go to the ER and he came here for the scheduled procedure. The procedure will be canceled for today. The patient will be directly admitted. We will check CBC, CMP, and blood type and screen. He will likely need a pRBC transfusion. Plan for enteroscopy tomorrow. documented in this encounter [facility] Work Phone: 07-09-2024 Note [facility] 06-25-2024 Note [facility] 06-13-2024 Note [facility] Evaluation note Diagnosis Iron deficiency anemia due to chronic blood loss Iron deficiency anemia secondary to blood loss (chronic) Angiectasia of gastrointestinal tract Imaging of gastrointestinal tract abnormal Status post endoscopy Other postprocedural status documented in this encounter [facility] Work Phone: Evaluation note* Diagnosis GI bleed- Primary Unspecified, hemorrhage of gastrointestinal tract GI bleed Unspecified, hemorrhage of gastrointestinal tract documented in this encounter [facility] Work Phone: Evaluation note* Diagnosis Iron deficiency anemia due to chronic blood loss Iron deficiency anemia secondary to blood loss (chronic) Angiectasia of gastrointestinal tract Imaging of gastrointestinal tract abnormal Status post endoscopy Other postprocedural status documented in this encounter [facility] Work Phone: Evaluation note* Diagnosis Iron deficiency anemia due to chronic blood loss Iron deficiency anemia secondary to blood loss (chronic) Angiectasia of gastrointestinal tract Imaging of gastrointestinal tract abnormal Status post endoscopy Other postprocedural status documented in this encounter [facility] Work Phone: Reason for visit Narrative* Endoscopy (Routine) - Authorized Specialty Diagnoses / Procedures Referred By Contac t Referred To Contact Gastroenterology Diagnoses Iron deficiency anemia due to chronic blood loss Angiectasia of gastrointestinal tract Imaging of gastrointestinal tract abnormal Status post endoscopy Procedures Procedure Not Performed Enteroscopy w Single Balloon; [place] [address] [facility] [place] [address] Phone: tel: fax: Referral ID Status Reason Start Date Expiration Date V isits Requested Visits Authorized [id number] Authorized 09/07/2024 09/07/2025 1 1 [facility] Work Phone: Reason for visit Narrative* Auth/Cert Specialty Diagnoses / Procedures Referred By Georgette t Referred To Contact Diagnoses Anemia due to gastrointestinal [place] [address] [place] [id number] Phone: tel: fax: [facility] [address] [facility] [place] [address] Referral ID Status Reason Start Date Expiration Date Visits Re quested Visits Authorized [id number] 1 1 [facility] Work Phone: reason for visit Narrative* Endoscopy (Routine) - Authorized Specialty Diagnoses / Procedures Referred By Georgette aviles Referred To Contact Gastroenterology Diagnoses Iron deficiency anemia due to chronic blood loss Angiectasia of gastrointestinal tract Imaging of gastrointestinal tract abnormal Status post endoscopy Procedures Enteroscopy w Single Balloon; [place] [address] [facility] [place] [address] Phone: tel: fax: Referral ID Status Reason Start Date Expiration Date V isits Requested Visits Authorized [id number] Authorized 10/29/2024 10/29/2025 1 1 [facility] Work Phone: reason for visit Narrative* Auth/Cert Specialty Diagnoses / Procedures Referred By Georgette aviles Referred To Contact Diagnoses Anemia due to gastrointestinal blood [place] [address] [place] [address] Phone: tel: fax: [facility] [address] [place] [address] Referral ID Status Reason Start Date Expiration Date Visits Re quested Visits Authorized [id number] 1 1 [facility] Work Phone: Advance Directives No Advanced Directives Records Found Date Activated Date Inactivated Comments 10/29/2024 2:44 PM Question Answer Comments Plan of Care: Code Status Discussion Completed Decision Maker: Patient Date Activated Date Inactivated Comments 10/29/2024 1:22 PM 10/29/2024 2:44 PM Question Answer Comments Plan of Care: Code Status Discussion Completed Decision Maker: Patient Summary Purpose Family History No Family History Records FoundNo Family History Records Found Additional Source Comments Care Teams (unrecognized sec tion and content) Procedure Manager Relationship Specialty Start Date End Date Ariel Vasquez DO [address] [place] [address] PCP - [facility] PCP 05/12/24 Rowdy Guevara APRN-COMMERCIAL GLAZIER [address] [phone] PCP - General Family Medicine 10/29/24 Procedure Manager Relationship Specialty Start Date End Date Ariel Vasquez DO [address] [place] [address] PCP - [facility] PCP 05/12/24 Rowdy Guevara APRN-COMMERCIAL GLAZIER [address] [id number] PCP - General Family Medicine 10/29/24 Procedure Manager Relationship Specialty Start Date End Date Ariel Vasquez DO [address] [place] [phone] PCP - [facility] PCP 05/12/24 Rowdy Guevara APRN-COMPA [address] [id number] PCP - General Family Medicine 10/29/24 Procedure Manager Relationship Specialty Start Date End Date Ariel Vasquez DO [address] [place] [phone] PCP - [facility] PCP 05/12/24 Rowdy Guevara APRN-COMMERCIAL GLAZIER [address] [id number] PCP - General Family Medicine 10/29/24 Scheduled Active and Recently Administ ered Medications (unrecognized section and content) Medication Order 10/28/2024 10/29/2024 10/30/2024 ascorbic acid (Vitamin C) tablet 500 mg 500 mg, oral, Every evening, First dose on Sat10/29/24 at 2100 2053 (Given - Provider: Jessica Banegas RN) 2100 (Due) aspirin EC tablet 81 mg 81 mg, oral, Daily, First dose on Sat10/29/24 at 1345, Do not crush, chew, or split., On hold since Sat10/29/2024 at 1328 until manually unheld 1328 (Held by provider - Provider: Meme Plummer MD - Reason: Other)1345 (Not Given - Provider: Tigist Acharya RN - Reason: See Provider Order) 0900 (Not Given - Provider: Dalia Ellsworth RN - Reason: See Provider Order) budesonide (Pulmicort) 0.5 mg/2 mL nebulizer solution 1 mg 1 mg, nebulization, 2 times daily RT, First dose on Sat10/29/24 at 1900, Rinse mouth with water after use to reduce aftertaste and incidence of candidiasis. Do not swallow. 2021 (Not Given - Provider: Brittaney Ashley, MAYI - Reason: Patient not available - Comment: receiving pt care) 09 (Given - Provider: Gustavo Alaniz)1900 (Due) buPROPion XL (Wellbutrin XL) 24 hr tablet 300 mg 300 mg, oral, Daily, First dose on Sat10/30/24 at 0900, Do not crush, chew, or split. 0814 (Given - Provid er: Dalia Ellsworth RN) cyanocobalamin (Vitamin B-12) tablet 1,000 mcg 1,000 mcg, oral, Daily, First dose on Sat10/30/24 at 0900 0814 (Given - Provid er: Dalia Ellsworth RN) donepezil (Aricept) tablet 5 mg 5 mg, oral, Nightly, First dose on Sat10/29/24 at 2100 2052 (Given - Provider: Jessica Banegas RN) 2099 (Due) ferrous sulfate 325 mg (65 mg elemental) tablet 1 tablet 1 tablet, oral, Nightly, First dose (after last modification) on Sat10/29/24 at 2100, On hold since Sat10/29/2024 at 1748 until manually unheld 1747 (Held by provider - Provider: Meme Plummer MD - Reason: Other)2099 (Not Given - Provider: Jessica Banegas RN - Reason: See Provider Order) 2099 (Dose Auto Held - Provider: Meme Plummer MD) iron sucrose (Venofer) 300 mg in sodium chloride 0.9% 282 mL IV (COMPLETED) 300 mg, intravenous, at 188 mL/hr, Administer over 90 Minutes, Once, On Sat10/29/24 at 1830, For 1 dose, Vital signs pre and post infusion. 2052 (New Bag - Provider: Jessica Banegas RN)2221 (Stopped - Provider: Jessica Banegas RN) iron sucrose (Venofer) injection 200 mg (COMPLETED) 200 mg, intravenous, Administer over 5 Minutes, Once, On Sat10/30/24 at 1530, For 1 dose 1715 (Given - Provid er: Dalia Ellsworth RN) pantoprazole (ProtoNix) EC tablet 40 mg 40 mg, oral, Daily before breakfast, First dose on Sat10/30/24 at 0700, Do not crush, chew, or split. 0624 (Given - Provid er: Jessica Banegas RN) rosuvastatin (Crestor) tablet 20 mg 20 mg, oral, Nightly, First dose on Sat10/29/24 at 2100 2053 (Given - Provider: Jessica Banegas RN) 2100 (Due) sertraline (Zoloft) tablet 50 mg 50 mg, oral, Daily, First dose on Sat10/30/24 at 0900 0814 (Given - Provid er: Dalia Ellsworth RN) PRN Medication Order 10/28/2024 10/29/2024 10/30/2024 acetaminophen (Tylenol) tablet 975 mg 975 mg, oral, Every 8 hours PRN, pain mild (1-3), first line, pain moderate (4-6), first line, pain severe (7-10), first line, Starting on Sat10/30/24 at 1018, If ordered PRN for pain, nurse is permitted to administer this medication for higher pain scores based on patient preference? Yes albuterol 90 mcg/actuation inhaler 2 puff 2 puff, inhalation, Every 6 hours PRN, shortness of breath, Starting on Sat10/29/24 at 1545, Shake well before use., On hold since Sat10/29/2024 at 1545 until manually unheld 1545 (Held by provider - Provider: Iqra Davis MD - Reason: Other) hydrOXYzine HCL (Atarax) tablet 25 mg 25 mg, oral, Nightly PRN, sleep, Starting on Sat10/29/24 at 1544 ipratropium-albuteroL (Duo-Neb) 0.5-2.5 mg/3 mL nebulizer solution 3 mL 3 mL, nebulization, Every 6 hours PRN, wheezing, Starting on Sat10/29/24 at 1326 polyethylene glycol (Glycolax, Miralax) packet 17 g 17 g, oral, Daily PRN, constipation, Starting on Sat10/29/24 at 1321, Bowel Regimen - for prevention of constipation. prazosin (Minipress) capsule 2 mg 2 mg, oral, Nightly PRN, nightmares, Starting on Penny 10/29/24 at 1544 pseudoephedrine (Sudafed) tablet 30 mg 30 mg, oral, Every 4 hours PRN, congestion, Starting on Penny 10/29/24 at 1544, On hold since Penny 10/29/2024 at 1545 until manually unheld 1545 (Held by provider - Provider: Iqra Davis MD - Reason: Other) (unrecognized sect ion and content) No Status Records FoundNo Status Records Found INFORMATION SOURCE (unrecogn ized section and content) DATE CREATED AUTHOR 11/17/2024 [facility] DATE CREATED AUTHOR AUTHOR'S ORGANIZ ATION 12/08/2024 [facility] FOR RECORDS PERTAINING TO PATIENTS WHO ARE [...] BE BASED ON THE PRIMARY CLINICAL RECORDS. [employer] provides no warranty or guarantee of the accuracy or completeness of information in this document.
[2024-12-09] MEDS: Lactated Ringers 1,000 ML 15 ML IV (06:43)
--- NOTE | 2024-12-09 07:01 | PRE.ANES_ITS ---
ASA Classification* ASA Classification ASA Classification: 3 Assessment & Plan Anesthesia* Anesthesia Assessment Anesthesia Assessment: Discussed sedation and/or anesthesia options, risks, benefits, and alternatives with patient/parents/legal guardian/POA. Questions invited. The patient/parents/legal guardian/POA seems to understand and agrees to proceed with anesthesia plan. Reviewed the physical assessment, medical history, allergy history and patient home medications list prior to surgery/procedure/anesthetic and documented any changes. Performed airway and anesthesia risk assessments. Anesthesia Type Anesthesia Type: MAC Anesthesia Focused Assessment* Temperature: 97.6 F Pulse Rate: 66 Blood Pressure: 128/75 Respiratory Rate: 18 Pulse Ox: 99 Airway Assessment Mouth opens: >3 cm Mallampati Score: II Labs Anesthesia Preop lab: CBC WBC, (4.4-11.0) 7.1 K/mm3 11/25/24, 12:43 RBC, (4.6-6.2) 3.83 M/mm3 L 11/25/24, 12:43 Hgb, (13.0-16.5) 9.5 g/dL L 11/25/24, 12:43 Hct, (40-54) 31.8 % L 11/25/24, 12:43 Plt Count, (150-450) 353 K/mm3 11/25/24, 12:43 CHEMISTRY Potassium, (3.3-5.1) 3.8 mmol/L 07/09/24, 04:31 Sodium, (133-145) 142 mmol/L 07/09/24, 04:31 Magnesium, (1.5-2.2) 2.3 mg/dL H 07/09/24, 04:31 Phosphorus, (2.7-4.5) 4.9 mg/dL H 07/09/24, 04:31 BUN, (4-19) 16 mg/dL 07/09/24, 04:31 Creatinine, (0.70-1.20) 0.98 mg/dL 07/09/24, 04:31 Glucose, (70-99) 70 mg/dL 07/09/24, 04:31 TSH, (0.358-3.74) 3.22 uIU/mL 11/26/22, 09:26 COAG PT, (11.7-14.9) 14.3 SECONDS 07/07/24, 18:00 Pre-Assessment Diagnosis/Proposed Procedure Planned Operative Procedure(s): EGD Anesthesia History 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 When Was Last Pacemaker Check QUESTION #4 FULL TEXT: You/Your Family Experience fever (hyperthermia) with Anesthesia Last Oral Intake Last Oral intake: Last Oral Intake NPO since 23:45 12/09/24 06:33 Meds taken in AM with sips of Yes 12/09/24 06:33 water? Meds patient instructed to Wellbutrin, Zoloft, vitamin 12/09/24 06:33 take am of surgery c, omeprazole, B12, breathing treatment PONV PONV - advanced manufacturing vice president: PONV - advanced manufacturing vice president Female Yes 12/08/24 10:48 HX of Motion Sickness No 12/08/24 10:48 HX of N/V After Surgery No 12/08/24 10:48 Non-Smoker Yes 12/08/24 10:48 Duration of Surgery greater No 12/08/24 10:48 than 60 minutes Number of Risk Factors 2 12/08/24 10:48 PONV Score Moderate Risk 12/08/24 10:48 Height & Weight Height & Weight: Anesthesia: Height & Weight Height 5 ft 10 in 12/09/24 06:33 Weight: 56 kg 12/09/24 06:33 Body Mass Index (BMI) 17.6 12/09/24 06:33 Respiratory Assessment Respiratory Assessment - advanced manufacturing vice president: Respiratory Tract Infection Hx - advanced manufacturing vice president Hx Respiratory Tract Infection No 12/08/24 10:48 STOP Sleep Apnea STOP Sleep Apnea - advanced manufacturing vice president: STOP Sleep Apnea - advanced manufacturing vice president Hx Hypertension No 12/08/24 10:48 Hx Sleep Apnea No 12/08/24 10:48 CPAP No 06/13/24 09:30 BIPAP Do you snore loudly (louder No 12/08/24 10:48 than talking or can be heard Do you often feel tired/ No 12/08/24 10:48 fatigued/ sleepy during daytime? Has anyone observed you stop No 12/08/24 10:48 breathing during sleep? STOP Results Negative 12/08/24 10:48 QUESTION #5 FULL TEXT : Do you snore loudly (louder than talking or can be heard through closed doors)? Tobacco Use History Tobacco Use History - advanced manufacturing vice president: Tobacco Use History - advanced manufacturing vice president Tobacco Use Smoking Status Former smoker 12/08/24 10:48 Hx Tobacco Use Yes 12/08/24 10:48 Years Smoking Packs Smoked per Day Smoking Cessation Date was Yes - quit smoking within 15 12/08/24 10:48 within the last 15 years years Hx Smoking Cessation Date 05/05/24 07/07/24 23:37 Hx Smoking Cessation No 12/08/24 10:48 Counseling Hematologic Medial History Hematologic Hx - advanced manufacturing vice president: Hematologic Medical Hx - distance learning program coordinator Hx of Blood Transfusion Yes 12/08/24 10:48 Hx of Transfusion in last 3 Yes 12/08/24 10:48 Months Date of Last Transfusion (if 10/202412/08/24 10:48 within last 3 months) Ever experience any problems No 12/08/24 10:48 with transfusion(s)? Specify any problems Hx of Preganancy in last 3 N/A 12/08/24 10:48 Months Nurse Filling Out Transfusion [email or web address] 12/08/24 10:48 & Questions: Date: 12/08/24 12/08/24 10:48 Time: 10:52 12/08/24 10:48 Patient unable to answer at this time (ie. confused, unrespo /Reproduction History /Reproductive History - advanced manufacturing vice president: /Reproductive Hx- advanced manufacturing vice president Hx Now Gestational Age (in weeks): EDC: Hx Hx Para Hx Section SAB No 12/08/24 10:48 Active Medications Active Medications: Current Medications Generic Name Dose Route Start Last Admin Trade Name Freq PRN Reason Stop Dose Admin Lactated Ringer's 1,000 mls @ 15 mls/hr 12/09/24 06:30 12/09/24 06:43 IV 15 mls/hr .Q48H BEBE Administration PFSH Medical History Marijuana use Shortness of breath on exertion Angiodysplasia of colon with hemorrhage Iron deficiency anemia due to chronic blood loss Pancreatitis Asthma DVT (deep venous thrombosis) ABLA (acute blood loss anemia) Hepatitis C Severe protein-calorie malnutrition Substance abuse Smoker Opioid dependence Polysubstance abuse Alcohol use disorder Generalized anxiety disorder Major depressive disorder, recurrent severe without psychotic features Dysthymia Hematest positive stools Emphysema lung Nicotine dependence, cigarettes, uncomplicated Iron deficiency anemia Skin cancer, basal cell PAD (peripheral artery disease) Basal cell carcinoma (BCC) Hemorrhoid GERD (gastroesophageal reflux disease) Depression Osteoarthritis Chronic back pain Home Medications Medication Instructions Recorded Last Taken Type bupropion HCl 300 mg 24 hr tablet, 300 mg PO DAILY ANX IETY 11/23/21 12/09/24 History extended release albuterol sulfate 90 mcg/actuation 2 puff inhalation Q 4H PRN PRN 05/06/23 12/09/24 Rx aerosol inhaler Shortness Of Breath Or Wheez ing #3 ea food supplemt, lactose-reduced 240 ml PO DAILY PRN SUP PLEMENT 06/13/23 12/08/24 History (Ensure oral liquid) hydroxyzine HCl 25 mg tablet 25 mg PO BID PRN anxiety 06/13/23 Unknown History aspirin 81 mg tablet,delayed 81 mg PO QDAY heart healt h 02/28/24 12/04/24 Histo ry release (Adult Low Dose Aspirin) sertraline 50 mg tablet (Zoloft) 50 mg PO QDAY mental health 02/28/24 12/09/24 History donepezil 5 mg tablet 5 mg PO QHS memory 06/10/24 12/08/24 History ipratropium 0.5 mg-albuterol 3 mg 3 ml inhalation BID SOB &/OR 06/10/24 12/09/24 History (2.5 mg base)/3 mL nebulization WHEEZING soln omeprazole 40 mg capsule,delayed 40 mg PO DAILY reflux 06/10/24 12/09/24 History release acetaminophen 500 mg tablet 1,000 mg PO Q8 PRN pain Unknown History budesonide 1 mg/2 mL suspension 1 mg (2 mL) inhalation BID #120 mL 07/13/24 12/09/24 Rx for nebulization ascorbate calcium (vitamin C) 500 500 mg PO QDAY 07/2112/09/24 History mg tablet gabapentin 100 mg capsule 100 mg PO QD-TID PRN pain Unknown History multivitamin 1 tab PO QAM 11/13/24 History rosuvastatin 20 mg tablet 20 mg PO QHS cholesterol 12/08/24 History Allergy/AdvReac Type Severity Reaction Status Date / Time buspirone (From BuSpar) Allergy Mild shaking, Verified 12/09/24 06:32 restless legs sucralfate (From Carafate) Allergy Other Verified 12/09/24 06:32 venom-honey bee (bee venom Allergy Anaphylaxis Verified 12/09/24 06:32 (honey bee)) trazodone AdvReac Severe nightmares Verified 12/09/24 06:32 Family History Mother Diabetes Heart disease Hypertension Thyroid disorder Ulcer Dementia Sister Asthma Heart disease Hypertension Cancer multiple myeloma Father Dementia Surgical History History of ankle surgery History of cholecystectomy S/P peripheral artery angioplasty with stent placement History of colonoscopy (~2018) History of cataract extraction Hx of local excision of skin lesion Hx of endarterectomy History of cholecystectomy (~2002) Social History household members: friend(s) Smoking Status: Current every day smoker tobacco type: cigarettes Tobacco: How many years used: 50 Electronic Cigarette Use: not used second hand exposure: No alcohol intake: former details: Sober since 2016. substance use type: other details: Fentanyl, snorted, does have prior IVDA history. Review of Systems (Anesthesia) ROS Narrative System reviewed and no additional complaints, except as documented.
--- NOTE | 2024-12-09 07:07 | HP.PCM_ITS ---
HPI - General General Date of Admission: 12/09/24 Date of Service: 12/09/24 Chief Complaint: Anemia HPI Narrative FRANKI LOCO, is a 69 M who presents [ Chief Complaint: Angiodysplastic lesions of the small bowel 06.19.24 OV established with [facility] for recent ABLA and hospitalization at [facility] from 4.30-5.05.05. He reports having a procedure next week with vascular. I ordered a recheck on his CBC. We reviewed alarm signs and symptoms related to blood loss. I will review our infusion center's policies for ordering iron infusions; consult hematology v. begin the PA for this. 07.07.24 hgb 5.4 hct 18.5, pt called and notified to seek care in an ER; [facility] admission ; received 3units PRBCs and an iron infusion. EGD and colonoscopy on 07/08/2024 was found to have medium size hiatal hernia as well as a single bleeding colonic angio dysplastic lesion which was treated with a monopolar probe. 07.21.[address] Hendrickson, consulted. Per his recommendations: Oral iron with vitamin C supplement 1 tablet each day at least until the end of 2024, probably may need it long-term. Patient was instructed to take these in the evening, separate from his a.m. PPI. A maintenance IV iron is not indicated but periodic supplementation of his oral iron may be needed at depending at the rate of which he loses blood. Iron studies ordered for recheck 01.11.25. 07.23.24 OV Reports feeling fatigued with little energy or motivation to get out of bed. He presents for exam with his sister. He is requesting that his hemoglobin be checked to see if it's low again. He denies hematochezia and melena, but only because he "doesn't always look at it after going." He also reports occasional nausea, not triggered by food. He states that he "just deals with it. I don't want any more prescriptions. If it gets too bad, I have leftover Zofran." He admits to dizziness and lightheadedness with rapid position changes, but denies heart palpitations. He reports an intermittent headache at bilateral temples. He is taking his PPI in the morning and has started taking his prescribed oral supplement in the evenings opposite of his PPI. His sister is a retired nurse and enforced to him that oral iron is not absorbed if taking a PPI, so he had been resistant to take oral iron supplements. OV 11/13/24 patient had deep enteroscopy performed by Dr. Niño on 10/30/2024. Patient was found to have multiple angiectasia's in the duodenal bulb, second part of the duodenum, third part of the duodenum and fourth part of the duodenum. All of which were cauterized with APC a 5 mm semipedunculated polyp in the syncope in the duodenum that was not removed. Patient with a single small duodenal diverticulum with no inflammation. Multiple small angiectasia's in the jejunum treated with APC. Patient here today to follow-up from this. Patient was told that he had a polyp in his second part of the jejunum that will need to be removed. Patient also was told that he could use IV iron however Dr. Agosto would not order it. He is not currently taking oral iron CBC W/Diff, Automated Today D64.9 - Anemia, unspecified ] [facility] Medical History Marijuana use Shortness of breath on exertion Angiodysplasia of colon with hemorrhage Iron deficiency anemia due to chronic blood loss Pancreatitis Asthma DVT (deep venous thrombosis) ABLA (acute blood loss anemia) Hepatitis C Severe protein-calorie malnutrition Substance abuse Smoker Opioid dependence Polysubstance abuse Alcohol use disorder Generalized anxiety disorder Major depressive disorder, recurrent severe without psychotic features Dysthymia Hematest positive stools Emphysema lung Nicotine dependence, cigarettes, uncomplicated Iron deficiency anemia Skin cancer, basal cell PAD (peripheral artery disease) Basal cell carcinoma (BCC) Hemorrhoid GERD (gastroesophageal reflux disease) Depression Osteoarthritis Chronic back pain Home Medications Medication Instructions Recorded Last Taken Type bupropion HCl 300 mg 24 hr tablet, 300 mg PO DAILY ANX IETY 11/23/21 12/09/24 History extended release albuterol sulfate 90 mcg/actuation 2 puff inhalation Q 4H PRN PRN 05/06/23 12/09/24 Rx aerosol inhaler Shortness Of Breath Or Wheez ing #3 ea food supplemt, lactose-reduced 240 ml PO DAILY PRN SUP PLEMENT 06/13/23 12/08/24 History (Ensure oral liquid) hydroxyzine HCl 25 mg tablet 25 mg PO BID PRN anxiety 06/13/23 Unknown History aspirin 81 mg tablet,delayed 81 mg PO QDAY heart healt h 02/28/24 12/04/24 History release (Adult Low Dose Aspirin) sertraline 50 mg tablet (Zoloft) 50 mg PO QDAY mental health 02/28/24 12/09/24 History donepezil 5 mg tablet 5 mg PO QHS memory 06/10/24 12/08/24 History ipratropium 0.5 mg-albuterol 3 mg 3 ml inhalation BID SOB &/OR 06/10/24 12/09/24 History (2.5 mg base)/3 mL nebulization WHEEZING soln omeprazole 40 mg capsule,delayed 40 mg PO DAILY reflux 06/10/24 12/09/24 History release acetaminophen 500 mg tablet 1,000 mg PO Q8 PRN pain Unknown History budesonide 1 mg/2 mL suspension 1 mg (2 mL) inhalation BID #120 mL 07/13/24 12/09/24 Rx for nebulization ascorbate calcium (vitamin C) 500 500 mg PO QDAY 07/2112/09/24 History mg tablet gabapentin 100 mg capsule 100 mg PO QD-TID PRN pain Unknown History multivitamin 1 tab PO QAM 11/13/24 History rosuvastatin 20 mg tablet 20 mg PO QHS cholesterol 12/08/24 History Allergy/AdvReac Type Severity Reaction Status Date / Time buspirone (From BuSpar) Allergy Mild shaking, Verified 12/09/24 06:32 restless legs sucralfate (From Carafate) Allergy Other Verified 12/09/24 06:32 venom-honey bee (bee venom Allergy Anaphylaxis Verified 12/09/24 06:32 (honey bee)) trazodone AdvReac Severe nightmares Verified 12/09/24 06:32 Family History Mother Diabetes Heart disease Hypertension Thyroid disorder Ulcer Dementia Sister Asthma Heart disease Hypertension Cancer multiple myeloma Father Dementia Surgical History History of ankle surgery History of cholecystectomy S/P peripheral artery angioplasty with stent placement History of colonoscopy (~2018) History of cataract extraction Hx of local excision of skin lesion Hx of endarterectomy History of cholecystectomy (~2002) Social History household members: friend(s) Smoking Status: Current every day smoker tobacco type: cigarettes Tobacco: How many years used: 50 Electronic Cigarette Use: not used second hand exposure: No alcohol intake: former details: Sober since 2016. substance use type: other details: Fentanyl, snorted, does have prior IVDA history. ROS Constitutional Constitutional: Denies fatigue, fever(s), poor appetite, weight gain or weight loss Gastrointestinal Gastrointestinal: Denies belching, bloating, change in bowel habits, change in stool character, chewing difficulty, coffee ground emesis, constipation, cramping, diarrhea, dyspepsia, dysphagia, early satiety, excessive flatus, fecal incontinence, heartburn, hematemesis, hematochezia, hemorrhoids, loose stools, melena, nausea, odynophagia, rectal bleeding, tenesmus, vomiting or weight changes Vital Signs Vital Signs Vital Signs: 12/09/24 06:33 12/09/24 06:33 12/09/24 07:01 Temperature 97.6 F L 97.6 F L Temperature Source Temporal Pulse Rate 66 66 Respiratory Rate 18 18 Respiratory Pattern Normal Blood Pressure 128/75 H 128/75 H Blood Pressure Mean 92 Blood Pressure Source Monitor Blood Pressure Position Semi-Fowlers Blood Pressure Location Right Arm Pulse Ox 99 99 Oxygen Delivery Method Room Air Weight Weight: 123 lb 7.342 oz Body Mass Index (BMI) 17.6 Physical Exam Const alert, oriented x3, no apparent distress and healthy appearing General Appearance: cooperative GI normal to inspection, nondistended, normoactive bowel sounds, soft to palpation, non-tender and non-distended Percussion: normal to percussion Rectal Exam: deferred Assessment & Plan Assessment/Plan (1) Anemia: QUALIFIERS: Iron deficiency anemia type: chronic blood loss PLAN: Assessment and Plan Assessment and Plan (1) Iron deficiency anemia due to chronic blood loss: Status: Chronic Plan: Franki is a 69-year-old male patient here today for follow-up after he was referred to deep enteroscopy with Dr. Niño. Deep enteroscopy revealing numerous angiectasia's in the duodenum and jejunum which were treated with APC. Also noted was a duodenal polyp in the second portion of the duodenum that was not removed and will require repeat EGD for removal. Patient feeling well today. He continues to have fatigue and weakness but feels this may be from his depression. Hemoglobin from 11/09/2024 was 9.6. Will repeat hemoglobin in 1 week. Patient was told that he would benefit from IV iron infusions per Dr. Niño however note from hematology indicated oral iron would be sufficient. Patient will speak with his primary care provider about this. Patient was scheduled for repeat EGD for removal of the duodenal polyp. - Follow-up from deep enteroscopy - Hemoglobin uptrending - Repeat CBC in 1 week - Scheduled for EGD for removal of duodenal polyp - Recommended he talk with PCP regarding IV iron - Follow-up after procedure (2) Anemia: Status: Acute Qualifiers: Iron deficiency anemia type: chronic blood loss Orders: Orders
--- NOTE | 2024-12-09 07:15 | EGD_PTH ---
PATIENT: LEIGH WALTERS LOC: EN U#:[id number] AGE/SX: 69/M ROOM: RE12/09/[address]: Dr. Sahil Tobin DO : 1955 BED: DIS: 12/09/2024 SPEC #: [id number] RECD: 12/09/24 09:36 STATUS: OSMAN REKleber #: [id number] RACHEL: 12/09/24 07:[address]: Sahil Tobin DEPT: SURGICAL PATHOLOGY RECD BY: Yazan Byers ENTERED: 12/09/24 10:31 SP TYPE: EGD BIOPSY OTHR DR: Claribel Guevara, QUALITY ASSURANCE TESTER-C Tissues: A - Duodenum, NOS Procedures: Surgery Specimen Level IV HEADER OPERATION: EGD with polypectomy PRE-OP DIAGNOSIS: Anemia TISSUE SUBMITTED: A- Duodenum polyp MICROSCOPIC DIAGNOSIS A. Duodenum, "polyp", biopsy: - Normal villous architecture with focal Melissa gland hyperplasia. - Submucosal cystic space lined by benign mucinous epithelium, consistent with enterogenous cyst. MICROSCOPIC DESCRIPTION Slides are reviewed. GROSS DESCRIPTION A. Duodenum polyp: Is a 1.0 x 0.6 x 0.4 cm stanley and granular, lobulated, polypoid fragment of stanley-pink soft tissue. The resection margin is inked green and the specimen is trisected. Entirely submitted in 1 cassette. IA 12/09/2024 CPT:17189
--- NOTE | 2024-12-09 07:20 | PRE.ANES_ITS ---
ASA Classification* ASA Classification ASA Classification: 2 Assessment & Plan Anesthesia* Anesthesia Assessment Anesthesia Assessment: Discussed sedation and/or anesthesia options, risks, benefits, and alternatives with patient/parents/legal guardian/POA. Questions invited. The patient/parents/legal guardian/POA seems to understand and agrees to proceed with anesthesia plan. Reviewed the physical assessment, medical history, allergy history and patient home medications list prior to surgery/procedure/anesthetic and documented any changes. Performed airway and anesthesia risk assessments. Anesthesia Type Anesthesia Type: MAC Anesthesia Focused Assessment* Temperature: 97.6 F Pulse Rate: 66 Blood Pressure: 128/75 Respiratory Rate: 18 Pulse Ox: 99 Airway Assessment Mouth opens: >3 cm Mallampati Score: II Labs Anesthesia Preop lab: CBC WBC, (4.4-11.0) 7.1 K/mm3 11/25/24, 12:43 RBC, (4.6-6.2) 3.83 M/mm3 L 11/25/24, 12:43 Hgb, (13.0-16.5) 9.5 g/dL L 11/25/24, 12:43 Hct, (40-54) 31.8 % L 11/25/24, 12:43 Plt Count, (150-450) 353 K/mm3 11/25/24, 12:43 CHEMISTRY Potassium, (3.3-5.1) 3.8 mmol/L 07/09/24, 04:31 Sodium, (133-145) 142 mmol/L 07/09/24, 04:31 Magnesium, (1.5-2.2) 2.3 mg/dL H 07/09/24, 04:31 Phosphorus, (2.7-4.5) 4.9 mg/dL H 07/09/24, 04:31 BUN, (4-19) 16 mg/dL 07/09/24, 04:31 Creatinine, (0.70-1.20) 0.98 mg/dL 07/09/24, 04:31 Glucose, (70-99) 70 mg/dL 07/09/24, 04:31 TSH, (0.358-3.74) 3.22 uIU/mL 11/26/22, 09:26 COAG PT, (11.7-14.9) 14.3 SECONDS 07/07/24, 18:00 Pre-Assessment Diagnosis/Proposed Procedure Planned Operative Procedure(s): EGD Anesthesia History Anesthesia History - cardiopulmonary physical therapist: Anesthesia History - cardiopulmonary physical therapist Hx Hospitalization Yes: [facility] 10/202412/08/24 10:48 Any Problems With Anesthesia No 12/08/24 10:48 Cholinesterase deficiency No 12/08/24 10:48 You/Your Family Experience No 12/08/24 10:48 fever (hyperthermia) with Relationship Recent Exposure to Contagious No 12/09/24 06:33 Disease Does patient have nerve No 12/08/24 10:48 stimulator Patient instructed to have device shut off --Does patient have Pacemaker No 12/09/24 06:33 or ICD? When Was Last Pacemaker Check QUESTION #4 FULL TEXT: You/Your Family Experience fever (hyperthermia) with Anesthesia Last Oral Intake Last Oral intake: Last Oral Intake NPO since 23:45 12/09/24 06:33 Meds taken in AM with sips of Yes 12/09/24 06:33 water? Meds patient instructed to Wellbutrin, Zoloft, vitamin 12/09/24 06:33 take am of surgery c, omeprazole, B12, breathing treatment PONV PONV - cardiopulmonary physical therapist: PONV - cardiopulmonary physical therapist Female Yes 12/08/24 10:48 HX of Motion Sickness No 12/08/24 10:48 HX of N/V After Surgery No 12/08/24 10:48 Non-Smoker Yes 12/08/24 10:48 Duration of Surgery greater No 12/08/24 10:48 than 60 minutes Number of Risk Factors 2 12/08/24 10:48 PONV Score Moderate Risk 12/08/24 10:48 Height & Weight Height & Weight: Anesthesia: Height & Weight Height 5 ft 10 in 12/09/24 06:33 Weight: 56 kg 12/09/24 06:33 Body Mass Index (BMI) 17.6 12/09/24 06:33 Respiratory Assessment Respiratory Assessment - cardiopulmonary physical therapist: Respiratory Tract Infection Hx - cardiopulmonary physical therapist Hx Respiratory Tract Infection No 12/08/24 10:48 STOP Sleep Apnea STOP Sleep Apnea - cardiopulmonary physical therapist: STOP Sleep Apnea - cardiopulmonary physical therapist Hx Hypertension No 12/08/24 10:48 Hx Sleep Apnea No 12/08/24 10:48 CPAP No 06/13/24 09:30 BIPAP Do you snore loudly (louder No 12/08/24 10:48 than talking or can be heard Do you often feel tired/ No 12/08/24 10:48 fatigued/ sleepy during daytime? Has anyone observed you stop No 12/08/24 10:48 breathing during sleep? STOP Results Negative 12/08/24 10:48 QUESTION #5 FULL TEXT : Do you snore loudly (louder than talking or can be heard through closed doors)? Tobacco Use History Tobacco Use History - cardiopulmonary physical therapist: Tobacco Use History - cardiopulmonary physical therapist Tobacco Use Smoking Status Former smoker 12/08/24 10:48 Hx Tobacco Use Yes 12/08/24 10:48 Years Smoking Packs Smoked per Day Smoking Cessation Date was Yes - quit smoking within 15 12/08/24 10:48 within the last 15 years years Hx Smoking Cessation Date 05/05/24 07/07/24 23:37 Hx Smoking Cessation No 12/08/24 10:48 Counseling Hematologic Medial History Hematologic Hx - cardiopulmonary physical therapist: Hematologic Medical Hx - transfer engineer Hx of Blood Transfusion Yes 12/08/24 10:48 Hx of Transfusion in last 3 Yes 12/08/24 10:48 Months Date of Last Transfusion (if 10/202412/08/24 10:48 within last 3 months) Ever experience any problems No 12/08/24 10:48 with transfusion(s)? Specify any problems Hx of Preganancy in last 3 N/A 12/08/24 10:48 Months Nurse Filling Out Transfusion [email or web address] 12/08/24 10:48 & Questions: Date: 12/08/24 12/08/24 10:48 Time: 10:52 12/08/24 10:48 Patient unable to answer at this time (ie. confused, unrespo /Reproduction History /Reproductive History - cardiopulmonary physical therapist: /Reproductive Hx- cardiopulmonary physical therapist Hx Now Gestational Age (in weeks): EDC: Hx Hx Para Hx Section SAB No 12/08/24 10:48 Active Medications Active Medications: Current Medications Generic Name Dose Route Start Last Admin Trade Name Freq PRN Reason Stop Dose Admin Lactated Ringer's 1,000 mls @ 15 mls/hr 12/09/24 06:30 12/09/24 06:43 IV 15 mls/hr .Q48H [facility] History Marijuana use Shortness of breath on exertion Angiodysplasia of colon with hemorrhage Iron deficiency anemia due to chronic blood loss Pancreatitis Asthma DVT (deep venous thrombosis) ABLA (acute blood loss anemia) Hepatitis C Severe protein-calorie malnutrition Substance abuse Smoker Opioid dependence Polysubstance abuse Alcohol use disorder Generalized anxiety disorder Major depressive disorder, recurrent severe without psychotic features Dysthymia Hematest positive stools Emphysema lung Nicotine dependence, cigarettes, uncomplicated Iron deficiency anemia Skin cancer, basal cell PAD (peripheral artery disease) Basal cell carcinoma (BCC) Hemorrhoid GERD (gastroesophageal reflux disease) Depression Osteoarthritis Chronic back pain Home Medications Medication Instructions Recorded Last Taken Type bupropion HCl 300 mg 24 hr tablet, 300 mg PO DAILY ANX IETY 11/23/21 12/09/24 History extended release albuterol sulfate 90 mcg/actuation 2 puff inhalation Q 4H PRN PRN 05/06/23 12/09/24 Rx aerosol inhaler Shortness Of Breath Or Wheez ing #3 ea food supplemt, lactose-reduced 240 ml PO DAILY PRN SUP PLEMENT 06/13/23 12/08/24 History (Ensure oral liquid) hydroxyzine HCl 25 mg tablet 25 mg PO BID PRN anxiety 06/13/23 Unknown History aspirin 81 mg tablet,delayed 81 mg PO QDAY heart healt h 02/28/24 12/04/24 Histo ry release (Adult Low Dose Aspirin) sertraline 50 mg tablet (Zoloft) 50 mg PO QDAY mental health 02/28/24 12/09/24 History donepezil 5 mg tablet 5 mg PO QHS memory 06/10/24 12/08/24 History ipratropium 0.5 mg-albuterol 3 mg 3 ml inhalation BID SOB &/OR 06/10/24 12/09/24 History (2.5 mg base)/3 mL nebulization WHEEZING soln omeprazole 40 mg capsule,delayed 40 mg PO DAILY reflux 06/10/24 12/09/24 History release acetaminophen 500 mg tablet 1,000 mg PO Q8 PRN pain Unknown History budesonide 1 mg/2 mL suspension 1 mg (2 mL) inhalation BID #120 mL 07/13/24 12/09/24 Rx for nebulization ascorbate calcium (vitamin C) 500 500 mg PO QDAY 07/2112/09/24 History mg tablet gabapentin 100 mg capsule 100 mg PO QD-TID PRN pain Unknown History multivitamin 1 tab PO QAM 11/13/24 History rosuvastatin 20 mg tablet 20 mg PO QHS cholesterol 12/08/24 History Allergy/AdvReac Type Severity Reaction Status Date / Time buspirone (From BuSpar) Allergy Mild shaking, Verified 12/09/24 06:32 restless legs sucralfate (From Carafate) Allergy Other Verified 12/09/24 06:32 venom-honey bee (bee venom Allergy Anaphylaxis Verified 12/09/24 06:32 (honey bee)) trazodone AdvReac Severe nightmares Verified 12/09/24 06:32 Family History Mother Diabetes Heart disease Hypertension Thyroid disorder Ulcer Dementia Sister Asthma Heart disease Hypertension Cancer multiple myeloma Father Dementia Surgical History History of ankle surgery History of cholecystectomy S/P peripheral artery angioplasty with stent placement History of colonoscopy (~2018) History of cataract extraction Hx of local excision of skin lesion Hx of endarterectomy History of cholecystectomy (~2002) Social History household members: friend(s) Smoking Status: Current every day smoker tobacco type: cigarettes Tobacco: How many years used: 50 Electronic Cigarette Use: not used second hand exposure: No alcohol intake: former details: Sober since 2016. substance use type: other details: Fentanyl, snorted, does have prior IVDA history. Review of Systems (Anesthesia) ROS Narrative System reviewed and no additional complaints, except as documented.
--- NOTE | 2024-12-09 07:45 | OP.PROVAT_ITS ---
12/09/2024 Nelda Dobson Re : Upper GI endoscopy procedure for Franki Manzo Dear Ismael This procedure was performed on Monday, December 09, 2024. My impressions and recommendations are as follows: Impressions : - No gross lesions in the entire esophagus. - Medium-sized hiatal hernia. - Two duodenal polyps. Resected and retrieved. Clip was placed. Clip chassis engineer: [employer]. - A single non-bleeding angiodysplastic lesion in the duodenum. Treated with a monopolar probe. Recommendations : - Patient has a contact number available for emergencies. The signs and symptoms of potential delayed complications were discussed with the patient. Return to normal activities tomorrow. Written discharge instructions were provided to the patient. - Resume previous diet. - Resume previous diet. - Continue present medications. My findings are described in the full procedure note, which is enclosed. If I can be of further assistance, please feel free to contact me at . Sincerely, Sahil Tobin, 12/09/2024 7:44:37 AM This report has been signed electronically.
--- NOTE | 2024-12-09 07:45 | OP.EGD_ITS ---
Patient Name: Franki Manzo Procedure Date: 12/09/2024 7:19 AM Date of : 1955 Age: 69 Procedure: Upper GI endoscopy Indications: Iron deficiency anemia Providers: Sahil Tobin DO Referring MD: Nelda Dobson Medicines: Monitored Anesthesia Care Patient Profile: This is a 69 year old male. Refer to note in patient chart for documentation of history and physical. Patient has symptoms. Complications: No immediate complications. Procedure: Pre-Anesthesia Assessment: - Prior to the procedure, a History and Physical was performed, and patient medications and allergies were reviewed. The patient is competent. The risks and benefits of the procedure and the sedation options and risks were discussed with the patient. All questions were answered and informed consent was obtained. Patient identification and proposed procedure were verified by the physician in the pre-procedure area. Mental Status Examination: alert and oriented. Airway Examination: normal oropharyngeal airway and neck mobility. Respiratory Examination: clear to auscultation. CV Examination: normal. Prophylactic Antibiotics: The patient does not require prophylactic antibiotics. Prior Anticoagulants: The patient has taken no anticoagulant or antiplatelet agents except for NSAID medication. ASA Grade Assessment: II - A patient with mild systemic disease. After reviewing the risks and benefits, the patient was deemed in satisfactory condition to undergo the procedure. The anesthesia plan was to use monitored anesthesia care (MAC). Immediately prior to administration of medications, the patient was re-assessed for adequacy to receive sedatives. The heart rate, respiratory rate, oxygen saturations, blood pressure, adequacy of pulmonary ventilation, and response to care were monitored throughout the procedure. The physical status of the patient was re-assessed after the procedure. After obtaining informed consent, the endoscope was passed under direct vision. Throughout the procedure, the patient's blood pressure, pulse, and oxygen saturations were monitored continuously. The Endoscope was introduced through the mouth, and advanced to the fourth part of the duodenum. Small bowel enteroscopy was deemed necessary. The upper GI endoscopy was accomplished without difficulty. The patient tolerated the procedure well. Scope In: 7:22:47 AM Scope Out: 7:37:30 AM Total Procedure Duration Time 0 hours 14 minutes 43 seconds Findings: No gross lesions were noted in the entire esophagus. A medium-sized hiatal hernia was present. Two 20 mm sessile polyps with no bleeding were found in the second portion of the duodenum. The polyp was removed with a hot snare. Resection and retrieval were complete. To prevent bleeding after the polypectomy, one hemostatic clip was successfully placed. Clip assistant corporate secretary: PLU[employer]. There was no bleeding at the end of the procedure. A single angiodysplastic lesion without bleeding was found in the third portion of the duodenum. Coagulation for bleeding prevention using monopolar probe was successful. Estimated blood loss was minimal. Impression: - No gross lesions in the entire esophagus. - Medium-sized hiatal hernia. - Two duodenal polyps. Resected and retrieved. Clip was placed. Clip assistant corporate secretary: PLU[employer]. - A single non-bleeding angiodysplastic lesion in the duodenum. Treated with a monopolar probe. Recommendation: - Patient has a contact number available for emergencies. The signs and symptoms of potential delayed complications were discussed with the patient. Return to normal activities tomorrow. Written discharge instructions were provided to the patient. - Resume previous diet. - Resume previous diet. - Continue present medications. Procedure Code(s): --- Professional --- 51451, 59, Small intestinal endoscopy, enteroscopy beyond second portion of duodenum, not including ileum; with control of bleeding (eg, injection, bipolar cautery, unipolar cautery, laser, heater probe, stapler, plasma radiologic therapist) 46920, 51, Small intestinal endoscopy, enteroscopy beyond second portion of duodenum, not including ileum; with removal of tumor(s), polyp(s), or other lesion(s) by snare technique CPT copyright 2021 [employer]. All rights reserved. The codes documented in this report are preliminary and upon facility maintenance supervisor review may be revised to meet current compliance requirements. Sahil Tobin DO 12/09/2024 7:44:37 AM This report has been signed electronically. Number of Addenda: 0 Note Initiated On: 12/09/2024 7:19 AM
--- NOTE | 2024-12-09 07:50 | PCM.POST.ANE ---
Anesthesia: Postop Eval I Current Vital Signs Temperature: 97.7 F Pulse Rate: 77 Blood Pressure: 143/70 Respiratory Rate: 16 Pulse Ox: 97 Oxygen Delivery Method: Room Air Assessment Airway patent: Yes Spontaneous unlabored respirations: Yes Mental status: Asleep nausea: No Vomiting: No Anesthesia Complication: No Fluid Hydration Crystalloid volume administer (ml): 800 Total IV fluid infused: 800 Progress Note Anesthesia document: Postop Eval 1 completed: Yes
--- NOTE | 2024-12-09 08:20 | PCM.POSTANE2 ---
Anesthesia Postop Eval I Sum Postop Eval Completion status Anesthesia document: Postop Eval 1 completed: Yes Anesthesia Postop Eval I Summary Anesthesia Postop Eval I Summary: Anesthesia Postop Eval I: Assessment Summary Airway patent Yes 12/09/24 07:57 [email or web address] Spontaneous unlabored Yes 12/09/24 07:57 [email or web address] respirations Mental status Asleep 12/09/24 07:57 [email or web address] nausea No 12/09/24 07:57 [email or web address] Vomiting No 12/09/24 07:57 [email or web address] Anesthesia Postop Eval I: Fluid Summary Crystalloid volume administer 800 12/09/24 07:57 [email or web address] (ml) Colloids volume administered ( ml) Blood Product volume administered (ml) Total IV fluid infused 800 12/09/24 07:57 [email or web address] Anesthesia Postop Eval I: Summary Notes Anesthesia Complication No 12/09/24 07:57 [email or web address] Anesthesia Complication Comment: Post-operative progress note Anesthesia: Postop Eval II Evaluation Mental status: Awake Pain Level: 0 nausea: No Vomiting: No
== END 2024-12-09 09:06 | disposition home or self-care (01) ==
LOC: EN 06:07 → AC 06:07
PROVIDERS: PCP Nurse Practitioner Family; Referring Provider Nurse Practitioner Family; Visit Provider Internal Medicine Gastroenterology
PROC: 0DJ08ZZ Inspection of Upper Intestinal Tract, Via Natural or Artificial Opening Endoscopic (ICD-10-PCS; CPT 43235; principal; 2024-12-09 07:10)
DX: D50.0 Iron deficiency anemia secondary to blood loss (chronic) (principal); K44.9 Diaphragmatic hernia without obstruction or gangrene; K21.9 Gastro-esophageal reflux disease without esophagitis; F17.210 Nicotine dependence, cigarettes, uncomplicated; F41.1 Generalized anxiety disorder; Z79.899 Other long term (current) drug therapy; Z85.828 Personal history of other malignant neoplasm of skin; F32.A Depression, unspecified; Z90.49 Acquired absence of other specified parts of digestive tract; Z95.5 Presence of coronary angioplasty implant and graft; Z98.49 Cataract extraction status, unspecified eye; K31.89 Other diseases of stomach and duodenum; D13.2 Benign neoplasm of duodenum
CPT/HCPCS: 44364; 44366; 88305; J2405

== ENCOUNTER → 2025-01-20 | Outpatient (CLI) | payer MEDICARE, MEDICAID, SELFPAY ==
[2025-01-20 14:23] LABS: Hematocrit 31.4 % (40-54); Hemoglobin 9.3 g/dL (13.0-16.5); Immature Granulocytes Count 0.050 X10^3/uL (0.0-0.0); Mean Corp Hgb Conc 29.6 g/dL (32-36); Mean Corpuscular Volume 84.2 fL (80-94); Mean Platelet Vol. 9.4 fl (6.2-12.0); NRBC Flagged by Analyzer 0 % (0-5); POSITIVE MORPHOLOGY YES; Platelet Count 454 K/mm3 (150-450); RBC Distribution Width CV 22.7 % (11.6-14.6); RBC Distribution Width SD 59.3 fl (35.1-43.9); Red Blood Count 3.73 M/mm3 (4.6-6.2); White Blood Count 8.2 K/mm3 (4.4-11.0)
[2025-01-20 14:28] LABS: Differential Indicated SCAN CRITERIA MET
[2025-01-20 16:26] LABS: Differential Comment SCANNED
[2025-01-20 16:28] LABS: Anisocytosis 2+
[2025-01-20 16:29] LABS: Polychromasia 1+
[2025-01-26 02:08] LABS: Bluegrass, Kentucky <0.10 kU/L (Class 0); Cat Hair/Dander, Standard <0.10 kU/L (Class 0); Dog Epithelia <0.10 kU/L (Class 0); Elm, American White <0.10 kU/L (Class 0); Oak, White <0.10 kU/L (Class 0); Plantain, English <0.10 kU/L (Class 0); Ragweed, Short/Common <0.10 kU/L (Class 0)
[2025-01-29 07:07] LABS: Aspirgillus flavus Negative (Neg:<1:1); Aspirgillus fumigatus Negative (Neg:<1:1); Aspirgillus niger Negative (Neg:<1:1)
== END | disposition home or self-care (01) ==
LOC: LAB 13:48
PROVIDERS: PCP Nurse Practitioner Family; Referring Provider Nurse Practitioner Acute Care; Visit Provider Nurse Practitioner Acute Care
DX: J30.9 Allergic rhinitis, unspecified (principal)
CPT/HCPCS: 36415; 82785; 85025; 86003; 86606